=== PATIENT | female | born 1940 | race Caucasian/White ===

== ENCOUNTER 2016-07-25 13:09 | Emergency (ER) | payer BC ==
[~2016-07-25] VITALS: Ht 147.3 cm; Wt 75.0 kg
[2016-07-25 13:14] VITALS: TEMP 36.5; Ht 147.3 cm; Wt 75.0 kg
[2016-07-25] MEDS ORDERED: ACETAMINOPHEN 325 MG TAB PO STA (13:37)
--- NOTE | 2016-07-25 14:25 | DIAGNOSTIC IMAGING REPORT ---
HEAD CT NONCONTRAST CT DOSE: 601.98 mGy.cm HISTORY: Trauma fall; R frontal contusion TECHNIQUE: Multiaxial CT images of the head were performed without the use of intravenous contrast. Comparison: None. Findings: The paranasal sinuses and mastoid air cells are clear. The curvilinear 1.5 x 1.0 cm density transaxial image 10 left occipital lobe. Diagnostic considerations include a serpiginous area transverse sinus versus faintly seen meningioma. MRI of the brain is suggested. Remainder of the study shows unremarkable density characteristics throughout. Ventricular system is midline. Impression: 1.5 x 1.0 cm curvilinear density adjacent to the left transverse sinus and/or left tentorium 2. MRI of the brain with contrast enhancement is suggested as follow-up. 3. Remainder the study is negative. Electronically signed by: Saad Fernando M.D. 07/25/2016 2:24 PM Dictated Date/Time: 07/25/2016 2:18 PM
[2016-07-25] MEDS ORDERED: METF-384 PO (14:37)
[2016-07-25] MEDS ORDERED: LEVO25TA PO (14:37)
[2016-07-25] MEDS ORDERED: GLIM2TAB PO (14:37)
[2016-07-25] MEDS ORDERED: PRLSR20 PO (14:37)
[2016-07-25] MEDS ORDERED: ASPI81TA28 PO (14:37)
[2016-07-25] MEDS ORDERED: IRBE-37 PO (14:37)
[2016-07-25] MEDS ORDERED: PRAV20TA PO (14:37)
[2016-07-25] MEDS ORDERED: METO25TA3 PO (14:37)
--- NOTE | 2016-07-25 15:06 | DIAGNOSTIC IMAGING REPORT ---
RIGHT HUMERUS MIN 2 VIEWS ROUTINE CLINICAL HISTORY: Right humeral pain status post trauma. COMPARISON: None. DISCUSSION: There is a humeral neck fracture. No additional fractures are visualized. IMPRESSION: Proximal humeral neck fracture. Electronically signed by: Eddie Melo M.D. 07/25/2016 3:05 PM Dictated Date/Time: 07/25/2016 3:05 PM
--- NOTE | 2016-07-25 15:06 | DIAGNOSTIC IMAGING REPORT ---
RIGHT SHOULDER MIN 2 VIEWS ROUTINE CLINICAL HISTORY: Right shoulder pain status post trauma COMPARISON: None. DISCUSSION: There is an acute humeral neck fracture. There is no dislocation. IMPRESSION: Essentially nondisplaced humeral neck fracture. Electronically signed by: Eddie Melo M.D. 07/25/2016 3:04 PM Dictated Date/Time: 07/25/2016 3:04 PM
--- NOTE | 2016-07-25 15:06 | DIAGNOSTIC IMAGING REPORT ---
LEFT KNEE 3 VIEWS CLINICAL HISTORY: fall; L knee pain COMPARISON: None. DISCUSSION: The bones and joint spaces appear intact. There is no evidence of fracture, dislocation or bony disease. There is no evidence for soft tissue swelling. IMPRESSION: Negative study. Electronically signed by: Saad Fernando M.D. 07/25/2016 3:05 PM Dictated Date/Time: 07/25/2016 3:05 PM
--- NOTE | 2016-07-25 15:42 | EMERGENCY ROOM VISIT NOTE ---
ED Visit Note First contact with patient: 13:23 I did evaluate and examine this patient myself. I did guide management for the patient. I agree with the PA's assessment as discussed. Please see the PAs dictation for further details. I did independently review the x-rays and CT scans. She does have a humeral fracture. She was informed of her test results and will follow up with neurology regarding her CT head findings and with orthopedics for her humeral fracture. She was placed in a coaptation splint.
[2016-07-25] MEDS ORDERED: HYDR-5688 PO (15:44)
[2016-07-25 16:44] VITALS: BP 127/57; PULSE 74; O2SAT 96
--- NOTE | 2016-07-26 20:54 | EMERGENCY ROOM VISIT NOTE ---
ED Visit Note First contact with patient: 13:23 Chief Complaint: Fall. History of Present Illness: Ms. Plata is a 75-year-old white female who ambulates into the ED accompanied by her complaining of right shoulder pain after a fall. Patient reports she was playing sport call pickelball. 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 She reports before the injury there was no lightheadedness or dizziness. The time of the injury she did not lose consciousness but does remember striking her head. Since the injury she has noted severe right shoulder and upper arm pain, mild left knee pain and the development of a contusion in the right frontal area. Currently she describes her shoulder pain as a sharp sensation. She rates her discomfort 10/10. The pain is nonradiating. The pain is noted. Over the superior aspect of the shoulder and the mid anterior aspect of the humerus. Her pain worsens with palpation in these areas as well as any movements of the shoulder. She has not identified any alleviating factors related to the pain. She has not taken medication for pain prior to arrival at the hospital. She denies any associated arm weakness/numbness/tingling. Additionally she denies any previous significant injuries or surgeries. Additionally I did noticed contusion over the right frontal area. She reports there is no pain associated with this and she denies all signs of head injury. Lastly she reports she noted some posterior right knee pain while walking out of the gym to come to the hospital. He has noted mild and since arriving at the hospital has no longer been present. Additionally she denies dizziness, lightheadedness, abnormal neurological symptoms, neck pain, back pain, chest pain, shortness of breath, abdominal pain , nausea, vomiting, extremity weakness/numbness/tingling. Review of Symptoms: As noted above in history of present illness. All body systems were reviewed and found to be negative as noted above. Past Medical History: Diabetes, hypertension, hypothyroidism. Current Medications: Medications Dose Route/Sig Max Daily Dose Days Date Category Dose Instructions Glucophage (Metformin Hcl) 1,000 Mg Tab 1,000 Mg PO BID 07/25/16 Reported Synthroid (Levothyroxine Sodium) 25 Mcg Tab 25 Mcg PO QPM 07/25/16 Reported Avapro (Irbesartan) 150 Mg Tab 150 Mg PO 0900 07/25/16 Reported Amaryl (Glimepiride) 2 Mg Tab 2 Mg PO BID 07/25/16 Reported Aspirin Ec (Aspirin) 81 Mg Tab 81 Mg PO DAILY 07/25/16 Reported Prilosec (Omeprazole) 20 Mg Capcr 20 Mg PO DAILY 07/25/16 Reported Pravachol (Pravastatin Sodium) 20 Mg Tab 40 Mg PO HS 07/25/16 Reported Toprol-Xl (Metoprolol Succinate) 25 Mg Tabcr 25 Mg PO 2000 07/25/16 Reported Allergies to Medications: Erythromycin and penicillin. Social History: Patient is currently retired; she feels safe in her home environment; she denies tobacco use. Physical Examination: Vital Signs: Date Time Temp Pulse Resp B/P Pulse Ox O2 Delivery O2 Flow Rate FiO2 07/25/16 16:44 74 18 127/57 96 07/25/16 15:00 76 18 135/50 95 Room Air 07/25/16 13:14 36.5 67 20 134/67 97 Room Air GENERAL: 75-year-old female in moderate distress due to pain, nontoxic-appearing , afebrile and hemodynamically stable. NEUROLOGICAL: Awake, alert and oriented to person, place and time. Answering questions appropriately and following commands. Normal gait. Good hand eye coordination. No focal motor sensory deficits. Cranial nerves II through XII grossly intact. Good short-term and long-term recall. SKIN: Warm, dry and pink. No soft tissue contusion noted over the right frontal area. HEENT: Atraumatic and normocephalic. Skull: No bony deformity, depressions or tenderness. No raccoon's eyes or hyde signs. No drainage from the ears or the nostril; no hemotympanum. Face: Mild tenderness over the contusion in the right frontal area without bony deformity or crepitus. PERRLA. EOMI without nystagmus. Sclera white and conjunctiva pink. No malocclusion. No intraoral trauma. Airway patent. Speech normal. No lymphadenopathy. Trachea midline. No jugular venous distention. BACK: No tenderness over the bony cervical and thoracic spine. Full range of motion of the cervical spine. THORAX: Lungs sounds are clear to auscultation and equal bilaterally with symmetrical chest wall. ABDOMEN: Flat, soft and nontender. Positive bowel sounds in all quadrants. No guarding, rigidity or organomegaly. RIGHT UPPER EXTREMITY: No gross bony deformity. Moderate tenderness over the humeral head and the proximal to mid humeral shaft without bony deformity, bony crepitus, swelling or ecchymosis. No tenderness over the distal humerus elbow, forearm or wrist. With the elbow stabilize she has full range of motion in pronation and supination of forearm, flexion, extension and radial and ulnar deviation of the wrist and flexion and extension of all fingers. Throughout the hand the skin was warm and pink and capillary refill is brisk. She is able to distinguish light sensations through all dermatomes. LEFT LOWER EXTREMITY: No gross bony deformity. No shortening or malrotation. No tenderness over the hip, femur, knee, lower leg or ankle. Full range of motion in flexion and extension of the knee, plantar flexion and dorsiflexion of the ankle and flexion and extension of all the toes. Throughout the foot the skin was warm and pink and capillary refill is brisk. She was able to distinguish light sensations through all dermatomes. ED Course: Patient is assessed as noted above. Right Shoulder X-Ray: Was read by myself and shows an acute humeral head fracture without dislocation. Right Humerus X-Ray: Was read by myself and the radiologist showing a proximal humeral neck fracture. Left Knee X-Rays: Was read by myself and the radiologist showing no acute fractures or dislocations. No evidence of soft tissue swelling. Head CT: Was reviewed by myself and read by the radiologist showing a 1.5 x 1.0 cm curviliiner density adjacent to the left transverse sinus and/or left tentorium consistent with a possibleserpiginous area transverse sinus versus meningioma. No intracranial bleed or skull fracture. Patient was given 650 mg of acetaminophen by mouth for pain; she refused narcotics. Additionally patient was given ice for pain and comfort. Patient's right upper extremity was immobilized with a sugar tong shoulder splint and sling. Patient's case was reviewed with Dr. Bojorquez; he independently assessed the patient we agreed on diagnostic approach, treatment, disposition and plan. Patient and were educated about leticia's findings and instructed on his treatment plan; they verbalizes understanding and agreement with this plan. Clinical Impression: Right humeral neck fracture. Right frontal contusion. Left knee pain. Disposition: Patient discharged home in stable condition; prior to departure she was reassessed and subjectively reported she was feeling much better and rated her discomfort 3/10. Plan: Comfort measures were discussed with the patient and her including the use of ice, splint and sling use and a sliding pain medication scale of ibuprofen, acetaminophen and [place]; patient was given narcotic precautions. Patient was encouraged to follow-up with Dr. Lebron, clinical applications specialist, for definitive care and treatment of her humerus fracture. Patient was encouraged to follow-up with Dr. Daniel, neurologist, for her new found hemangioma. Patient was encouraged return the ED for worsening/uncontrolled pain, arm weakness/numbness/tingling or any new/concerning symptoms.
== END 2016-07-25 16:39 | disposition home or self-care (01) ==
LOC: EDBD 13:09 → C.EDA 13:11
DX: S72.001A Fracture of unspecified part of neck of right femur, initial encounter for closed fracture (principal); S00.93XA Contusion of unspecified part of head, initial encounter; M25.562 Pain in left knee; W19.XXXA Unspecified fall, initial encounter; E11.9 Type 2 diabetes mellitus without complications; I10 Essential (primary) hypertension; E03.9 Hypothyroidism, unspecified; Z79.82 Long term (current) use of aspirin

== ENCOUNTER → 2016-08-07 | Outpatient (CLI) | payer BC ==
[~2016-08-07] MED LIST: ASPI81TA28 PO; GLIM2TAB PO; HYDR-5688 PO; IRBE-37 PO; LEVO25TA PO; METF-384 PO; METO25TA3 PO; PRAV20TA PO; PRLSR20 PO
--- NOTE | 2016-08-07 16:58 | DIAGNOSTIC IMAGING REPORT ---
LEFT LOWER EXTREMITY VENOUS DOPPLER CLINICAL HISTORY: Left leg pain and swelling. COMPARISON STUDY: No previous studies for comparison. TECHNIQUE: Sonography of the deep venous system of the left lower extremity was performed. Compression and augmentation were evaluated. FINDINGS: The left common femoral, superficial femoral and popliteal veins were compressible. Augmentation was normal. Flow was shown within the deep calf vessels. IMPRESSION: No evidence of deep venous thrombus within the left lower extremity. Electronically signed by: Tarik Chacon M.D. 08/07/2016 4:57 PM Dictated Date/Time: 08/07/2016 4:56 PM
== END | disposition home or self-care (01) ==
LOC: C.ULTR 15:57
PROVIDERS: ATTEND Nurse Practitioner
DX: M79.662 Pain in left lower leg (principal); M79.89 Other specified soft tissue disorders

== ENCOUNTER 2022-07-28 15:04 | Inpatient (IN) ==
[2022-07-28] MEDS ORDERED: SODIUM CHLORIDE 0.9% 500 ML IV STA (15:06)
--- NOTE | 2022-07-28 15:22 | Emergency Department Note ---
Impression & Plan AV heart block, Hypomagnesemia ED Provider Note NAME: RHETT MARSH AGE: 81 SEX: F : 1940 ARRIVES VIA: Ambulance INFORMANT: Patient, EMS ED PROVIDER(S): Elijah Keita DO CHIEF COMPLAINT: Dysrhythmia HPI: The patient is an 81-year-old female who presented to the emergency department via ambulance for an evaluation of dysrhythmia. The patient was seen at the [facility] for scheduled breast procedure. She was evaluated by anesthesia. The patient was found to have dysrhythmia on her EKG. This was new compared to a previous EKG. They were able to do the procedure but the patient was sent to the emergency department because of dysrhythmia. The patient herself denies having any chest pain. She denies having any shortness of breath. She denies having any lower extremity swelling. She states that she took all of her medications today except her metformin. She does take a calcium channel marito as well as a beta-marito. ROS: See above HPI for pertinent positives & negatives. A total of 10 systems reviewed and were otherwise negative. PAST MEDICAL HISTORY: See Below PAST SURGICAL HISTORY: See Below FAMILY HISTORY: See Below SOCIAL HISTORY: See Below HOME MEDICATIONS: See Below ALLERGIES: See Below VITALS: See Below PHYSICAL EXAMINATION: GENERAL: Patient is awake alert in no acute distress patient is resting comfortably and showing no signs of anxiety EYES: The conjunctivae are clear. The pupils are round and reactive. EARS, NOSE, MOUTH AND THROAT: The nose is without any evidence of any deformity. NECK: The neck is nontender and supple. RESPIRATORY: Normal respiratory effort is noted there is no evidence of wheezing rhonchi or rales CARDIOVASCULAR: Bradycardic but regular heart sounds were noted to auscultation. There is no definite murmur GASTROINTESTINAL: The abdomen is soft. Abdomen is nontender. MUSCULOSKELETAL/EXTREMITIES: There is no evidence of gross deformity full range of motion is noted in the hips and shoulders. SKIN: The skin was warm and dry. Trace pedal edema was noted bilaterally. NEUROLOGIC: Patient is awake alert and oriented x3 MEDICAL DECISION MAKING: The patient is an 81-year-old female who has a history of breast cancer who had a recent biopsy and a short procedure unit. The patient was seen at the surgery center at [facility]. She had the procedure done but she was also noted to have an abnormal heart rhythm which appeared to be a heart block. The patient was sent to the emergency department by anesthesia. I did receive a phone call about the patient from anesthesia. I discussed the patient's laboratory and radiographic studies with her. I discussed her condition with the [facility] bag sorter as well as the on-call [facility] hospitalist. They have agreed to evaluate the patient in the emergency department for further management and disposition. The patient was placed on the campus monitor. She was also ordered to have the transcutaneous pacer placed. Triage Nursing notes reviewed. Prior medical records reviewed Vital Signs: reviewed and remarkable for bradycardia. Differential diagnosis: Premature contractions, electrolyte abnormality, cardiac dysrhythmia, thyroid dysfunction, pulmonary embolism, infection, gastrointestinal, as well as other pathologies. ER treatment provided: See below Diagnostics interpreted by me: ECG: EKG was obtained in the emergency department. My interpretation is second- degree AV block. Poor R wave progression was noted with diffuse ST segment abnormalities. There was also an area that appears to be consistent with third- degree block. No previous tracing was available. Prehospital EKG was evaluated. My interpretation is second-degree heart block at 47 bpm. Cardiac Monitoring: An order was placed for continuous cardiac monitoring. The monitor shows a rate of 49 bpm with second-degree heart block. Laboratory studies: As stated above and show below. Imaging studies: See below. Radiographic imaging was reviewed by myself Consultation(s): I discussed this case with Dr. Jerry who is on-call for the [facility] cardiology group. I discussed this case with Nupur who is on for the [facility] hospitalist group. ED COURSE: Procedures: none Critical Care: I have personally spent greater than 45 minutes of critical care time in the direct management of this patient. This includes bedside care, interpretation of diagnostic studies, and testing, discussion with consultants, patient, and family members, and other required patient management activities. This 45 minutes is in excess of all separately billable procedures. Past Med/Surg History Medical History CLL (chronic lymphocytic leukemia) Diabetes mellitus type 2 in nonobese High cholesterol History of chicken pox Hypothyroidism Neuropathy Surgical History (Updated 07/28/22 @ 18:40 by CASEY Brewster) History of cryosurgery to cervix d/t cervical erosion S/P cholecystectomy S/P left mastectomy S/P lumpectomy, left breast S/P oophorectomy right S/P tonsillectomy S/P tubal ligation S/P wisdom tooth extraction Family History Grandmother (Paternal) Breast cancer Denies family history of Ovarian cancer Prostate cancer Colorectal cancer Social History Smoking Status: Never smoker Hx Alcohol Use: No Hx Substance Use: No Preferred Language: Cambodian Communication Ability: Effective Psychiatric Nursing Aide Required: No Beliefs That Will Affect Care: None Current Living Situation: Alone Feels Safe at Home: Yes Safety Concerns: Feels Safe At This Time Assistive Devices: None Allergies Allergies Allergy/AdvReac Type Severity Reaction Status Date / Time erythromycin base Allergy Unknown gi upset Verified 07/28/22 16:25 Penicillins Allergy Unknown hives, rash Verified 07/28/22 16:25 Sulfa (Sulfonamide AdvReac upset Verified 07/28/22 16:25 Antibiotics) stomach Home Meds Home Medications Medication Instructions Recorded Confirmed aspirin 81 mg chewable tablet 81 mg PO DAILY 12/30/18 07/28/22 atenolol 50 mg tablet 50 mg PO DAILY 12/30/18 07/28/22 glimepiride 2 mg tablet 2 mg PO BID 12/30/18 07/28/22 levothyroxine 50 mcg tablet 50 mcg PO DAILY 12/30/18 07/28/22 loratadine 10 mg tablet (Allergy 10 mg PO DAILY 12/30/18 07/28/22 Relief (loratadine)) losartan 100 mg tablet 100 mg PO DAILY 12/30/18 07/28/22 metformin 500 mg tablet,extended 1,000 mg PO BID 12/30/18 07/28/22 release 24 hr omeprazole 20 mg tablet,delayed 20 mg PO DAILY 12/30/18 07/28/22 release pravastatin 40 mg tablet 40 mg PO DAILY 12/30/18 07/28/22 sitagliptin phosphate 100 mg tablet 100 mg PO DAILY 12/30/18 07/28/22 canagliflozin 100 mg tablet 100 mg PO DAILY 07/03/19 07/28/22 metoprolol succinate 25 mg 25 mg PO DAILY 07/03/19 07/28/22 tablet,extended release 24 hr (Toprol XL) Previous Rx's Medication Instructions Recorded fluconazole 150 mg tablet 150 mg PO Q3D 2 doses #2 tabs 07/03/19 (Diflucan) nystatin-triamcinolone 100,000 1 appln topical BID #30 grams 07/03/19 unit/g-0.1 % topical cream Results & Data (ED) Vital Signs Vital Signs - 24 hr 07/28/22 15:05 07/28/22 15:06 07/28/22 16:26 Pulse Rate 50 L 97 H Pulse Rate from SpO2 Sensor Respiratory Rate 17 Respiratory Effort / Characteristics Non-Labored Spontaneous Respiratory Depth Normal Blood Pressure 130/40 L Blood Pressure Mean 70 Pulse Oximetry 88 L 96 Oxygen Delivery Method Room Air Nasal Cannula Oxygen Flow Rate 4 Sepsis Recent Fever Within 48 Hours No Sepsis New/Unexplained Change in Mental Status No Sepsis Action Taken by Nursing No Action Required 07/28/22 15:24 07/28/22 15:26 07/28/22 15:26 Pulse Rate 60 49 L Pulse Rate from SpO2 Sensor 49 L Respiratory Rate 19 19 Respiratory Effort / Characteristics Respiratory Depth Blood Pressure 151/43 H Blood Pressure Mean 79 Pulse Oximetry 88 L Oxygen Delivery Method Oxygen Flow Rate Sepsis Recent Fever Within 48 Hours Sepsis New/Unexplained Change in Mental Status Sepsis Action Taken by Nursing 07/28/22 15:30 07/28/22 16:00 07/28/22 16:30 Pulse Rate 49 L 70 50 L Pulse Rate from SpO2 Sensor 47 L Respiratory Rate 20 22 19 Respiratory Effort / Characteristics Respiratory Depth Blood Pressure Blood Pressure Mean Pulse Oximetry 87 L Oxygen Delivery Method Oxygen Flow Rate Sepsis Recent Fever Within 48 Hours Sepsis New/Unexplained Change in Mental Status Sepsis Action Taken by [facility] Medications Current Medication List: was personally reviewed by me Laboratory Data Attestation: I reviewed the patient's lab results. 07/28/22 15:29 07/28/22 15:29 Lab Results 07/28/22 07/28/22 07/28/22 Range/Units 15:25 15:29 15:29 WBC 13.16 H (4.8-10.8) K/ul RBC 4.65 (4.20-5.40) M/uL Hgb 13.5 (12.0-16.0) g/dl Hct 39.7 (37.0-47.0) % MCV 85.4 (80.0-100.0) fL MCH 29.0 (25.0-34.0) pg MCHC 34.0 (32.0-36.0) g/dL RDW Std Deviation 42.2 (36.4-46.3) fL RDW Coeff of Karrie 13.6 (11.5-14.5) % Plt Count 204 (130-400) K/uL MPV 11.0 (9.4-12.4) fL Immature Gran % (Auto) 0.4 % Neut % (Auto) 63.1 % Lymph % (Auto) 33.4 % Hamblen % (Auto) 2.2 % Eos % (Auto) 0.7 % Baso % (Auto) 0.2 % Neut # (Auto) 8.30 H (1.40-6.50) K/uL Lymph # (Auto) 4.40 H (1.2-3.4) K/uL Hamblen # (Auto) 0.29 (0.11-0.59) K/uL Eos # (Auto) 0.09 (0-0.50) K/uL Baso # (Auto) 0.03 (0-0.2) K/uL Immature Gran # (Auto) 0.05 (0.01-0.20) K/uL PT 10.9 (9.0-12.0) Seconds INR 1.0 (0.9-1.1) APTT 21.6 (21.0-31.0) Seconds PTT Ratio 0.8 Sodium (136-145) mmol/L Potassium (3.5-5.1) mmol/L Chloride (98-107) mmol/L Carbon Dioxide (21-32) mmol/L Anion Gap (3-11) BUN (6-23) mg/dl Creatinine (0.6-1.2) mg/dl Est Cr Clr Drug Dosing ml/min Est GFR ( Amer) ml/min Est GFR (Non-Af Amer) ml/min BUN/Creatinine Ratio (10-20) Glucose (70-99(Fasting)) mg/dl Estimat Average Glucose 197 mg/dl Hemoglobin A1c 8.5 H (4.5-5.6) % Calcium (8.6-10.3) mg/dl Magnesium (1.7-2.4) mg/dl Total Bilirubin (0.2-1.0) mg/dl AST (13-39) U/L ALT (7-52) U/L Alkaline Phosphatase (34-104) U/L Troponin I High Sens (0-14) pg/ml Total Protein (6.0-8.3) gm/dl Albumin (3.4-5.0) gm/dl Globulin (2.5-4.0) gm/dl Albumin/Globulin Ratio (0.9-2) TSH (0.300-4.500) uIu/ml SARS-CoV-2, RNA, NAAT (NEGATIVE) 07/28/22 07/28/22 07/28/22 Range/Units 15:29 15:29 15:47 WBC (4.8-10.8) K/ul RBC (4.20-5.40) M/uL Hgb (12.0-16.0) g/dl Hct (37.0-47.0) % MCV (80.0-100.0) fL MCH (25.0-34.0) pg MCHC (32.0-36.0) g/dL RDW Std Deviation (36.4-46.3) fL RDW Coeff of Karrie (11.5-14.5) % Plt Count (130-400) K/uL MPV (9.4-12.4) fL Immature Gran % (Auto) % Neut % (Auto) % Lymph % (Auto) % Hamblen % (Auto) % Eos % (Auto) % Baso % (Auto) % Neut # (Auto) (1.40-6.50) K/uL Lymph # (Auto) (1.2-3.4) K/uL Hamblen # (Auto) (0.11-0.59) K/uL Eos # (Auto) (0-0.50) K/uL Baso # (Auto) (0-0.2) K/uL Immature Gran # (Auto) (0.01-0.20) K/uL PT (9.0-12.0) Seconds INR (0.9-1.1) APTT (21.0-31.0) Seconds PTT Ratio Sodium 138 (136-145) mmol/L Potassium 4.5 (3.5-5.1) mmol/L Chloride 102 (98-107) mmol/L Carbon Dioxide 27 (21-32) mmol/L Anion Gap 9 (3-11) BUN 12 (6-23) mg/dl Creatinine 0.82 (0.6-1.2) mg/dl Est Cr Clr Drug Dosing 48.3 ml/min Est GFR ( Amer) 78.3 ml/min Est GFR (Non-Af Amer) 67.6 ml/min BUN/Creatinine Ratio 14.6 (10-20) Glucose 188 H (70-99(Fasting)) mg/dl Estimat Average Glucose mg/dl Hemoglobin A1c (4.5-5.6) % Calcium 9.4 (8.6-10.3) mg/dl Magnesium 1.3 L (1.7-2.4) mg/dl Total Bilirubin 0.4 (0.2-1.0) mg/dl AST 33 (13-39) U/L ALT 23 (7-52) U/L Alkaline Phosphatase 64 (34-104) U/L Troponin I High Sens 5.5 (0-14) pg/ml Total Protein 6.6 (6.0-8.3) gm/dl Albumin 3.6 (3.4-5.0) gm/dl Globulin 3.0 (2.5-4.0) gm/dl Albumin/Globulin Ratio 1.2 (0.9-2) TSH 1.467 (0.300-4.500) uIu/ml SARS-CoV-2, RNA, NAAT NEGATIVE (NEGATIVE) Administered Medications Acetaminophen (Acetaminophen 325 Mg Tab) 650 mg PO Q8H MICHELA Stop: 08/27/22 18:44 Last Admin: 07/28/22 19:21 Dose: 650 mg Documented By: JUANCARLOS Discontinued Medications Sodium Chloride (Nss) 500 mls @ 999 mls/hr IV .Q31M STA Stop: 07/28/22 15:36 Last Infusion: 07/28/22 18:12 Dose: 0 mls/hr Documented By: Admin: 07/28/22 15:39 Dose: 999 mls/hr Documented By: NH Magnesium Sulfate/Dextrose (Magnesium Sulfate / D5w) 1 gm in 100 mls @ 100 mls/hr IV Q1H MICHELA Stop: 07/28/22 18:12 Last Admin: 03/24/23 19:20 Dose: 100 mls/hr Documented By: Infusion: 07/28/22 18:12 Dose: 100 mls/hr Documented By: Admin: 07/28/22 17:12 Dose: 100 mls/hr Documented By: SHAHAB Imaging Data Attestation: I personally reviewed and interpreted this imaging study as follows: My Impression: 1 view chest x-ray was obtained in the emergency department. My interpretation is no definite filtrate, no free air, final report below. Radiologist's Impression: Chest X-Ray 07/28/22 15:06 XR chest 1V portable CLINICAL HISTORY: Dysrhythmia COMPARISON STUDY: No previous studies for comparison. FINDINGS: Old deformity of the proximal right humerus is incidentally noted. T here is mild cardiomegaly without evidence for pulmonary edema. No pneumothorax or pleural effusion is present. Linear density along the left heart border favors atelectasis. There is no consolidation to suggest pneumonia. There is possible soft tissue gas within the left chest wall. IMPRESSION: 1. No acute cardiopulmonary findings. Mild cardiomegaly. 2. Possible soft tissue gas within the left chest wall. ACT 112: Negative or not required by law. Electronically signed by: Tarik Chacon M.D. 07/28/2022 3:28 PM Discharge Plan Visit Data Chief Complaint: Cardiac Assessment Stated Complaint: CARDIAC ASSESSMENT ED Provider: Elijah Keita Discharge Problem: AV heart block, Hypomagnesemia Patient Disposition: Admitted As Inpatient Discharge Instructions Interventions: ED Discharge Assessment Last Done: 07/28/22 17:36
--- NOTE | 2022-07-28 15:25 | Cardiology Consultation ---
Date of Consultation July 28, 2022 Assessment & Plan (1) AV heart block: (2) HTN (hypertension): Plan 81-year-old female without underlying cardiac disease but history of hypertension on beta-marito therapy who underwent routine surgery with left mastectomy and sentinel node biopsy today. Intraoperatively noted with heart rate of 50 2-1 AV block. Patient hemodynamically stable with no disruption in procedure. Due to persistent rhythm changes however patient was referred for inpatient telemetry and monitoring. EKG and telemetry strips reviewed. 2-1 AV block present high-grade AV block may be present on 1 strip Plan: Admit to telemetry. Hold metoprolol succinate. Complete cardiac evaluation with echocardiogram If AV block remains persistent or progresses may warrant pacemaker insertion discussed with patient and family. Currently no acute hemodynamic compromise or suggestion of myocardial injury or ischemia since dictation patient Sera or History of Present Illness Reason for Consultation: 2-1 AV block Requesting Physician: Dr. Annabella Victoria History of Present Illness Patient is a an 81-year-old female without prior history of cardiac disease who was referred and underwent left partial mastectomy and axillary sentinel lymph node biopsy on 07/28/2022 (earlier today). Intraoperatively noted to have 2-1 AV block by EKG and telemetry. No ST segment abnormalities. No hemodynamic instability. Procedure was able to be completed and patient asymptomatic postoperatively Patient referred for inpatient telemetry, hospitalization Preoperative EKG normal sinus rhythm with normal tracing at 70 bpm Underlying medical issues include 1. Hypothyroidism on replacement 2. Type 2 diabetes mellitus 3. Chronic lymphocytic leukemia 4. Hypertension on beta-marito therapy Patient denies prior history of myocardial infarction, angina, congestive heart failure. Does carry history of hypertension and did take a.m. medications including metoprolol succinate 50 mg p.o. She is sedentary about her home but denies any exertional dyspnea chest pains, tachypalpitations syncope or near syncope Appetite is fair No distinct sleep disruption No unexplained fevers chills or infections. No bleeding difficulties Surgery other than rhythm issues uneventful per patient she did receive IV blue dye for sentinel node biopsy Allergies Allergy/AdvReac Type Severity Reaction Status Date / Time erythromycin base Allergy Unknown gi upset Verified 07/03/19 11:04 Penicillins Allergy Unknown hives, rash Verified 07/03/19 11:04 Sulfa (Sulfonamide AdvReac upset Verified 07/03/19 11:04 Antibiotics) stomach Home Medications Medication Instructions Recorded Confirmed Type aspirin 81 mg chewable tablet 81 mg PO DAILY 12/30/18 07/03/19 History atenolol 50 mg tablet 50 mg PO DAILY 12/30/18 07/03/19 History glimepiride 2 mg tablet 2 mg PO BID 12/30/18 07/03/19 History levothyroxine 50 mcg tablet 50 mcg PO DAILY 12/30/18 07/03/19 History loratadine 10 mg tablet (Allergy 10 mg PO DAILY 12/30/18 07/03/19 History Relief (loratadine)) losartan 100 mg tablet 100 mg PO DAILY 12/30/18 07/03/19 History metformin 500 mg tablet,extended 1,000 mg PO BID 12/30/18 07/03/19 History release 24 hr omeprazole 20 mg tablet,delayed 20 mg PO DAILY 12/30/18 07/03/19 History release pravastatin 40 mg tablet 40 mg PO DAILY 12/30/18 07/03/19 History sitagliptin phosphate 100 mg tablet 100 mg PO DAILY 12/30/18 07/03/19 History canagliflozin 100 mg tablet 100 mg PO DAILY 07/03/19 07/03/19 History fluconazole 150 mg tablet 150 mg PO Q3D 2 doses #2 tabs 07/03/19 07/03/19 Rx (Diflucan) metoprolol succinate 25 mg 25 mg PO DAILY 07/03/19 07/03/19 History tablet,extended release 24 hr (Toprol XL) nystatin-triamcinolone 100,000 1 appln topical BID #30 grams 07/03/19 07/03/19 Rx unit/g-0.1 % topical cream varicella-zoster gE vac,2 of 2 50 mcg IM 07/03/19 07/03/19 History mcg IM suspension Patient History Medical History High cholesterol History of chicken pox Neuropathy Surgical History History of cryosurgery to cervix d/t cervical erosion S/P cholecystectomy S/P oophorectomy right S/P tonsillectomy S/P tubal ligation S/P wisdom tooth extraction Family History Grandmother (Paternal) Breast cancer Denies family history of Ovarian cancer Prostate cancer Colorectal cancer Social History Smoking Status: Never smoker Hx Alcohol Use: Yes Alcohol Intake Frequency Comment: 1 glass Hx Substance Use: No Feels Safe at Home: Yes Review of Systems Review of Systems: All systems reviewed & are unremarkable except as noted in HPI & below Physical Exam Constitutional: no acute distress Eyes: PERRL, conjunctivae normal, anicteric sclerae ENMT: external ear and nose normal, oropharynx normal Neck: trachea midline, no thyromegaly Respiratory: normal respiratory effort, lungs clear to auscultation Cardiovascular: Rate/Rhythm: regular rate and regular rhythm Heart Sounds: normal S1 and normal S2 Vessels: no JVD Extremities: no edema Chest (Breasts): Additional Comments: Surgical incision left chest and breast bandaged without drainage Gastrointestinal (Abdomen): normal bowel sounds, soft, nontender, no hepatosplenomegaly Musculoskeletal: no cyanosis or clubbing, extremities motor strength 5/5 Results & Data Vital Signs (Past 12 Hours) Vital Signs Pulse Resp BP Pulse Ox O2 Del Method O2 Flow Rate 07/28/22 15:06 96 Nasal Cannula 4 07/28/22 15:05 50 L 17 130/40 L 88 L Room Air Laboratory Results Laboratory Results - last 24 hr 07/28/22 07/28/22 07/28/22 15:29 15:29 15:29 WBC 13.16 H RBC 4.65 Hgb 13.5 Hct 39.7 MCV 85.4 MCH 29.0 MCHC 34.0 RDW Std Deviation 42.2 RDW Coeff of Karrie 13.6 Plt Count 204 MPV 11.0 Immature Gran % (Auto) 0.4 Neut % (Auto) 63.1 Lymph % (Auto) 33.4 Will % (Auto) 2.2 Eos % (Auto) 0.7 Baso % (Auto) 0.2 Neut # (Auto) 8.30 H Lymph # (Auto) 4.40 H Will # (Auto) 0.29 Eos # (Auto) 0.09 Baso # (Auto) 0.03 Immature Gran # (Auto) 0.05 PT Pending INR Pending APTT Pending PTT Ratio Pending Sodium 138 Potassium 4.5 Chloride 102 Carbon Dioxide 27 Anion Gap 9 BUN 12 Creatinine 0.82 Est Cr Clr Drug Dosing 48.3 Est GFR ( Amer) 78.3 Est GFR (Non-Af Amer) 67.6 BUN/Creatinine Ratio 14.6 Glucose 188 H Calcium 9.4 Magnesium 1.3 L Total Bilirubin 0.4 AST 33 ALT 23 Alkaline Phosphatase 64 Troponin I High Sens 5.5 Total Protein 6.6 Albumin 3.6 Globulin 3.0 Albumin/Globulin Ratio 1.2 TSH SARS-CoV-2, RNA, NAAT 07/28/22 07/28/22 15:29 15:47 WBC RBC Hgb Hct MCV MCH MCHC RDW Std Deviation RDW Coeff of Karrie Plt Count MPV Immature Gran % (Auto) Neut % (Auto) Lymph % (Auto) Will % (Auto) Eos % (Auto) Baso % (Auto) Neut # (Auto) Lymph # (Auto) Will # (Auto) Eos # (Auto) Baso # (Auto) Immature Gran # (Auto) PT INR APTT PTT Ratio Sodium Potassium Chloride Carbon Dioxide Anion Gap BUN Creatinine Est Cr Clr Drug Dosing Est GFR ( Amer) Est GFR (Non-Af Amer) BUN/Creatinine Ratio Glucose Calcium Magnesium Total Bilirubin AST ALT Alkaline Phosphatase Troponin I High Sens Total Protein Albumin Globulin Albumin/Globulin Ratio TSH 1.467 SARS-CoV-2, RNA, NAAT Pending Diagnostic Findings Echocardiogram 07/19/2020 The LV wall thickness is normal. The left ventricular wall motion is normal. The qualitative LV ejection fraction is 55-59% (normal). The left ventricular diastolic function is mildly abnormal (grade I). The aortic valve has three leaflets. Moderate aortic valve sclerosis is present. Aortic stenosis is absent. Mild aortic valve regurgitation is present. Trace mitral regurgitation is present. There is no evidence of pulmonary hypertension. The proximal ascending thoracic aorta is mildly enlarged with diameter of 4.1 cm.
--- NOTE | 2022-07-28 15:29 | XRay Report ---
XR chest 1V portable CLINICAL HISTORY: Dysrhythmia COMPARISON STUDY: No previous studies for comparison. FINDINGS: Old deformity of the proximal right humerus is incidentally noted. There is mild cardiomega ly without evidence for pulmonary edema. No pneumothorax or pleural effusion is present. Linear densi ty along the left heart border favors atelectasis. There is no consolidation to suggest pneumonia. Th ere is possible soft tissue gas within the left chest wall. IMPRESSION: 1. No acute cardiopulmonary findings. Mild cardiomegaly. 2. Possible soft tissue gas within the left chest wall. ACT 112: Negative or not required by law. Electronically signed by: Tarik Chacon M.D. 07/28/2022 3:28 PM
[2022-07-28 15:45] LABS: Basophils # (auto) 0.03 K/uL (0-0.2); Basophils % (auto) 0.2 %; Eosinophils # (auto) 0.09 K/uL (0-0.50); Eosinophils % (auto) 0.7 %; Hematocrit (blood only) 39.7 % (37.0-47.0); Hemoglobin 13.5 g/dl (12.0-16.0); Immature Granulocytes # (auto) 0.05 K/uL (0.01-0.20); Immature Granulocytes % (auto) 0.4 %; Lymphocytes % (auto) 33.4 %; Mean Corpuscular Volume 85.4 fL (80.0-100.0); Monocytes # (auto) 0.29 K/uL (0.11-0.59); Monocytes % (auto) 2.2 %; Neutrophils % (auto) 63.1 %; Platelet Count 204 K/uL (130-400); RDW Coefficient of Variation 13.6 % (11.5-14.5); RDW Standard Deviation 42.2 fL (36.4-46.3); Red Blood Count 4.65 M/uL (4.20-5.40); White Blood Count 13.16 K/ul (4.8-10.8)
[2022-07-28 16:00] LABS: Albumin Globulin Ratio 1.2 (0.9-2); Albumin Level 3.6 gm/dl (3.4-5.0); BUN Creatinine Ratio 14.6 (10-20); Bilirubin,Total 0.4 mg/dl (0.2-1.0); Calcium 9.4 mg/dl (8.6-10.3); Creatinine Clr Calc Pharmacy 48.3 ml/min; Est GFR (African American) 78.3 ml/min; Est GFR (Non-African American) 67.6 ml/min; Magnesium 1.3 mg/dl (1.7-2.4); Potassium 4.5 mmol/L (3.5-5.1); Total Protein 6.6 gm/dl (6.0-8.3)
[2022-07-28 16:05] LABS: Troponin I High Sensitivity 5.5 pg/ml (0-14)
[2022-07-28 16:17] LABS: Partial Thromboplastin Ratio 0.8; Partial Thromboplastin Time 21.6 Seconds (21.0-31.0); Prothrombin Time 10.9 Seconds (9.0-12.0)
[2022-07-28] MEDS ORDERED: ACETAMINOPHEN 325 MG TAB PO PRN (16:32)
[2022-07-28] MEDS ORDERED: ALUMINUM/MAGNESIUM SUSP 30 ML UDC PO PRN (16:32)
[2022-07-28] MEDS ORDERED: MAGNESIUM HYDROXIDE SUSP 30 ML UDC PO PRN (16:32)
[2022-07-28] MEDS ORDERED: POLYETHYLENE (MIRALAX) 17 GM PACK PO PRN (16:32)
[2022-07-28] MEDS ORDERED: ONDANSETRON INJ 2 MG/ML 2 ML VIAL IV PRN (16:32)
--- NOTE | 2022-07-28 16:39 | History & Physical Report ---
Date of Service July 28, 2022 Assessment & Plan (1) AV heart block: (2) CLL (chronic lymphocytic leukemia): (3) HTN (hypertension): (4) S/P lumpectomy, left breast: (5) Hypomagnesemia: (6) Diabetes mellitus type 2 in nonobese: (7) Hypothyroidism: Plan 81-year-old presents from [facility] after being found to be in an abnormal heart rhythm in preop holding area just prior to partial lumpectomy with lymph node biopsy. Cardiology on board external pacer pads placed patient asymptomatic with no chest pain pending echo results and a.m. labs cardiology will discuss possible pacemaker placement. Additional PMH includes CLL, diabetes mellitus type 2, HTN and hypothyroidism AV heart block: Noted to be an abnormal heart rhythm in preop holding just prior to partial lumpectomy Patient takes metoprolol, amlodipine and losartan; hold metoprolol for now per cardiology Cardiology evaluated patient in ED; does not follow with outpatient cardiology Echo ordered and pending Cardiology will follow in a.m. and discuss possible pacemaker placement External pacer pads placed while on PCU Patient asymptomatic with no chest pain Hypomagnesemia: Mg+ 1.3; replace with 2G and recheck in AM CLL: Status post left lumpectomy Left axillary lymph node biopsy: Left partial mastectomy completed today at [facility] Follows with Dr. Cruz Pain control with Tylenol and Tramadol PRN ice rotating at site of lumpectomy Diabetes mellitus type 2: Takes Glipizide and Metformin; DC while inpt Takes Trulicity; last dose on Sunday; hold while inpt FSBS ACHS SSI while inpatient Check A1c in a.m. HTN: Patient takes metoprolol, amlodipine and losartan; hold metoprolol for now per cardiology Hypothyroidism: Takes levothyroxine; continue Disposition: PCP: Dr. Dahl CODE STATUS: Full code VTE prophylaxis: Teds and SCDs for now I spent a total of 87 minutes coordinating, documenting, and providing care for this patient excluding time spent in the performance of separately billed services. All of the aforementioned completed while collaborating with the assigned attending physician for a full treatment plan. Please see their addendum for further details. Admission and Anticipated Discharge Date Admission Date: I have seen and examined the patient and have discussed the case with the provider above. I agree with the assessment and plan as stated with the following exceptions. The patient is an 81-year-old female who came in for an evaluation of abnormal heart rhythm seen in preop holding just prior to a left breast localized partial lumpectomy and left axillary sentinel lymph node biopsy. She is a diabetic female with a history of CLL and infiltrating ductal carcinoma of the left breast. In the ER, she reports feeling asymptomatic. She was seen by cardiology who noted 2-1 AV block present with high degree AV block. Intraoperatively it was noted that her heart rate was 50 bpm with 2-1 AV block. She was hemodynamically stable with no disruption in her procedure but her rhythm change was persistent postoperatively. Metoprolol succinate 50 mg daily is being held. She is currently asymptomatic denying any chest pain, shortness of breath, lightheadedness or other issues. On physical exam she is in no acute distress and is well-nourished well- developed. She has a grayish coloration to her face and skin. She is mentating clearly and has no gross focal neuromuscular deficits. Cardiac exam reveals S1- S2 heard with no murmurs gallops or rubs and regular rate and rhythm. Lungs are clear to auscultation bilaterally. She has a small surgical bandage with gauze over the left breast. Surrounding area of skin appears normal. Work-up in the ER includes a CBC with white blood cell count of 13 K, otherwise normal. Normal coags, BMP unremarkable aside from a glucose of 188. Hemoglobin A1c is 8.5, magnesium is low at 1.3. There are no liver function abnormalities. A chest x-ray reveals possible soft tissue gas within the left chest wall postprocedure EKG reveals sinus bradycardia with a rate of 51bpm with 2:1 block. 1. AV heart block 2. Breast cancer s/p partial mastectomy on 07/28/22 3. DMII 4. CLL Agree with cardiology plans to admit and monitor patient off beta clocker therapy. Pacemaker placement may be warranted if heart block persists. Cont close monitoring of pain or development of other post operative symptoms and use of ice for pain/swelling in the first 24-48 hours. Insulin therapy while hospitalized for blood glucose management. CLL is stable and monitored by [facility] . DO Timbo History of Present Illness Chief Complaint: bradycardia Primary Care Provider: Annabella Victoria DO Sera Plata is an 81-year-old female that presented to the [facility] ED via EMS from [facility] outpatient surgery center where she underwent a left lumpectomy and lymph node biopsy today. On EKG at [facility] she was noted to be bradycardic with second-degree AVB and a heart rate 48. While at [facility], [place] anesthesia did reach out to Dr. Burnette with cardiology who reviewed her recent EKG that was performed at the beginning of July preoperatively which indicated normal sinus rhythm. During this encounter the patient did not exhibit any cardiac symptoms and was hemodynamically stable. Patient does not have a cardiac history. PMH includes CLL ()followed by Dr. Helms, 0.5 cm lump diagnosed by annual mammogram, type 2 diabetes mellitus, HTN, HLD, and hypothyroidism. At baseline patient does take metoprolol, losartan and amlodipine for HTN management. Patient denies any syncope type symptoms at home and reports taking her medications routinely and consistently. When I met with the patient her son and daughter were at the bedside. Patient was AAOx4 and able to answer all questions appropriately. Patient lives alone at home and uses a cane intermittently to ambulate. Patient denies headache, dizziness, shortness of breath, chest pain, palpitations, N/V/D, recent falls or trauma, or swelling. Patient is sitting in her hospital bed in no apparent distress. Patient does have small dressing over left lateral breast status post lumpectomy today. Patient denies tobacco use, alcohol use or recreational drug use. Patient was evaluated by Dr. Jerry in the ED who indicated to hold all antihypertensive medications concern, obtain echocardiogram and keep patient n.p.o. after midnight. Cardiology will evaluate in the morning and have further conversation regarding if pacemaker placement is necessary or recommended. Patient will be admitted for further evaluation and management. Please see A/P for further details. Allergies Allergy/AdvReac Type Severity Reaction Status Date / Time erythromycin base Allergy Unknown gi upset Verified 07/28/22 16:25 Penicillins Allergy Unknown hives, rash Verified 07/28/22 16:25 Sulfa (Sulfonamide AdvReac upset Verified 07/28/22 16:25 Antibiotics) stomach Home Medications Medication Instructions Recorded Confirmed Type aspirin 81 mg chewable tablet 81 mg PO DAILY 12/30/18 07/28/22 History atenolol 50 mg tablet 50 mg PO DAILY 12/30/18 07/28/22 History glimepiride 2 mg tablet 2 mg PO BID 12/30/18 07/28/22 History levothyroxine 50 mcg tablet 50 mcg PO DAILY 12/30/18 07/28/22 History loratadine 10 mg tablet (Allergy 10 mg PO DAILY 12/30/18 07/28/22 History Relief (loratadine)) losartan 100 mg tablet 100 mg PO DAILY 12/30/18 07/28/22 History metformin 500 mg tablet,extended 1,000 mg PO BID 12/30/18 07/28/22 History release 24 hr omeprazole 20 mg tablet,delayed 20 mg PO DAILY 12/30/18 07/28/22 History release pravastatin 40 mg tablet 40 mg PO DAILY 12/30/18 07/28/22 History sitagliptin phosphate 100 mg tablet 100 mg PO DAILY 12/30/18 07/28/22 History canagliflozin 100 mg tablet 100 mg PO DAILY 07/03/19 07/28/22 History fluconazole 150 mg tablet 150 mg PO Q3D 2 doses #2 tabs 07/03/19 07/28/22 Rx (Diflucan) metoprolol succinate 25 mg 25 mg PO DAILY 07/03/19 07/28/22 History tablet,extended release 24 hr (Toprol XL) nystatin-triamcinolone 100,000 1 appln topical BID #30 grams 07/03/19 07/28/22 Rx unit/g-0.1 % topical cream Past Med/Surg History Medical History CLL (chronic lymphocytic leukemia) Diabetes mellitus type 2 in nonobese High cholesterol History of chicken pox Hypothyroidism Neuropathy Surgical History (Updated 07/28/22 @ 18:40 by CASEY Brewster) History of cryosurgery to cervix d/t cervical erosion S/P cholecystectomy S/P left mastectomy S/P lumpectomy, left breast S/P oophorectomy right S/P tonsillectomy S/P tubal ligation S/P wisdom tooth extraction Family History Grandmother (Paternal) Breast cancer Denies family history of Ovarian cancer Prostate cancer Colorectal cancer Social History Smoking Status: Never smoker Hx Alcohol Use: No Hx Substance Use: No Preferred Language: Chinese Communication Ability: Effective Gold Burnisher Required: No Beliefs That Will Affect Care: None Current Living Situation: Alone Feels Safe at Home: Yes Safety Concerns: Feels Safe At This Time Assistive Devices: None Review of Systems Review of Systems: Neuro: (-) Falls, trauma, slurred speech HEENT: (-) ATKINS, dizziness, dysphagia, visual or auditory changes CV: (-) CP, palpitations, swelling Resp: (-) SOB GI: (-) appetite changes, N/V/D, bowel changes : (-) urinary changes Skin: (-) rashes Psych: (-) anxiety, depression Physical Exam Physical Exam: Neuro: AAOx4, PERRLA, no aphagia, memory changes, CNII-XII grossly intact HEENT: head normocephalic, moist mucus membranes CV: S1/S2, (-) M/G/R, (-) edema, cap refill < 3 seconds Resp: Lungs CTA in all mcginnis. On RA GI: Abdomen S/NT/ND, Ax4 bowel sounds, (-) CVA tenderness Musculoskeletal: 5/5 B/L UE strength, 5/5 B/L LE strength. No gait disturbance Skin: (-) rashes , (-) erythema. Psych: euthymic mood Results & Data Results & Data Vital Signs (Past 12 Hours) Vital Signs Pulse Resp BP Pulse Ox O2 Del Method O2 Flow Rate 07/28/22 16:26 97 H 07/28/22 15:06 96 Nasal Cannula 4 07/28/22 15:05 50 L 17 130/40 L 88 L Room Air Laboratory Results Short CBC 07/28/22 Range/Units 15:29 WBC 13.16 H (4.8-10.8) K/ul Hgb 13.5 (12.0-16.0) g/dl Hct 39.7 (37.0-47.0) % Plt Count 204 (130-400) K/uL BMP 07/28/22 15:29 Sodium 138 Potassium 4.5 Chloride 102 Carbon Dioxide 27 BUN 12 Creatinine 0.82 Glucose 188 H Calcium 9.4 Liver Function 07/28/22 Range/Units 15:29 Total Bilirubin 0.4 (0.2-1.0) mg/dl AST 33 (13-39) U/L ALT 23 (7-52) U/L Alkaline Phosphatase 64 (34-104) U/L Albumin 3.6 (3.4-5.0) gm/dl Diagnostic Findings Chest X-Ray 07/28/22 15:06 XR chest 1V portable CLINICAL HISTORY: Dysrhythmia COMPARISON STUDY: No previous studies for comparison. FINDINGS: Old deformity of the proximal right humerus is incidentally noted. There is mild cardiomegaly without evidence for pulmonary edema. No pneumothorax or pleural effusion is present. Linear density along the left heart border favors atelectasis. There is no consolidation to suggest pneumonia. There is possible soft tissue gas within the left chest wall. IMPRESSION: 1. No acute cardiopulmonary findings. Mild cardiomegaly. 2. Possible soft tissue gas within the left chest wall. ACT 112: Negative or not required by law. Electronically signed by: Tarik Chacon M.D. 07/28/2022 3:28 PM Code Status & VTE Plan Code Status Full code in the event of cardiac or respiratory arrest VTE Prophylaxis Plan VTE Prophylaxis will be ordered: Yes
[2022-07-28 17:12] LABS: Estimated Average Glucose 197 mg/dl; Hemoglobin A1C 8.5 % (4.5-5.6)
[2022-07-28] MEDS: MAGNESIUM SULFATE / D5W 1 GM/100 ML BAG IV SCH ×2 (17:12→19:20)
--- NOTE | 2022-07-28 17:32 | Communication Note ---
Date of Service: July 28, 2022 ATTENDING ADDENDUM: The patient is an 81-year-old female who came in for an evaluation of abnormal heart rhythm seen in preop holding just prior to a left breast localized partial lumpectomy and left axillary sentinel lymph node biopsy. She is a diabetic female with a history of CLL and infiltrating ductal carcinoma of the left breast. In the ER, she reports feeling asymptomatic. She was seen by cardiology who noted 2-1 AV block present with high degree AV block. Intraoperatively it was noted that her heart rate was 50 bpm with 2-1 AV block. She was hemodynamically stable with no disruption in her procedure but her rhythm change was persistent postoperatively. Metoprolol succinate 50 mg daily is being held. She is currently asymptomatic denying any chest pain, shortness of breath, lightheadedness or other issues. On physical exam she is in no acute distress and is well-nourished well- developed. She has a grayish coloration to her face and skin. She is mentating clearly and has no gross focal neuromuscular deficits. Cardiac exam reveals S1- S2 heard with no murmurs gallops or rubs and regular rate and rhythm. Lungs are clear to auscultation bilaterally. She has a small surgical bandage with gauze over the left breast. Surrounding area of skin appears normal. Work-up in the ER includes a CBC with white blood cell count of 13 K, otherwise normal. Normal coags, BMP unremarkable aside from a glucose of 188. Hemoglobin A1c is 8.5, magnesium is low at 1.3. There are no liver function abnormalities. A chest x-ray reveals possible soft tissue gas within the left chest wall postprocedure EKG reveals sinus bradycardia with a rate of 51bpm with 2:1 block. 1. AV heart block 2. Breast cancer s/p partial mastectomy on 07/28/22 3. DMII 4. CLL Agree with cardiology plans to admit and monitor patient off beta clocker therapy. Pacemaker placement may be warranted if heart block persists. Cont close monitoring of pain or development of other post operative symptoms and use of ice for pain/swelling in the first 24-48 hours. Insulin therapy while hospitalized for blood glucose management. CLL is stable and monitored by [facility] . DO Timbo
[2022-07-28] MEDS ORDERED: GLUCAGON FOR INJ 1 MG VIAL SQ PRN (18:32)
[2022-07-28] MEDS ORDERED: DEXTROSE 50% 50 ML SYRINGE IV PRN (18:32)
[2022-07-28] MEDS ORDERED: GLUCOSE 10 TAB/TUBE PO PRN (18:32)
[2022-07-28] MEDS ORDERED: CARBOHYDRATES FOR HYPOGLYCEMIA PO PRN (18:32)
[2022-07-28] MEDS ORDERED: PHARMACY GLYCEMIC MGMT CONSULT PRN (18:32)
[2022-07-28] MEDS ORDERED: GLUCOSE 40% GEL 15 GM TUBE PO PRN (18:32)
[2022-07-28] MEDS ORDERED: traMADol HCL 50 MG TABLET PO PRN (18:43)
[2022-07-28] MEDS: ACETAMINOPHEN 325 MG TAB PO SCH (19:21)
[2022-07-28] MEDS ORDERED: INFLUENZA VACCINE HIGH DOSE PF 65+ 0.7 ML SYR IM ONE (20:15)
--- NOTE | 2022-07-28 20:21 | Electrocardiogram Report ---
Test Reason : Blood Pressure : / mmHG Vent. Rate : 051 BPM Atrial Rate : 051 BPM P-R Int : 170 ms QRS Dur : 068 ms QT Int : 524 ms P-R-T Axes : 064 000 039 degrees QTc Int : 482 ms Sinus rhythm with 2:1 AV block with escape beats Abnormal ECG No previous ECGs available Confirmed by Trav Topete ([id number]) on 07/28/2022 8:21:10 PM Referred By: Confirmed By:Mathew Topete
[2022-07-28] MEDS: INSULIN ASPART PER UNIT CHARGE SC SCH (20:41)
[2022-07-28] MEDS: LANTUS PER UNIT CHARGE SQ SCH (20:42)
[2022-07-29] MEDS: INSULIN ASPART PER UNIT CHARGE SC SCH ×6 (00:17→20:34)
[2022-07-29] MEDS: ACETAMINOPHEN 325 MG TAB PO SCH ×3 (02:23→19:45)
[2022-07-29 07:07] LABS: Hematocrit (blood only) 37.4 % (37.0-47.0); Hemoglobin 12.6 g/dl (12.0-16.0); Mean Corpuscular Hemoglobin 28.7 pg (25.0-34.0); Mean Corpuscular Hgb Conc 33.7 g/dL (32.0-36.0); Mean Corpuscular Volume 85.2 fL (80.0-100.0); Mean Platelet Volume 11.1 fL (9.4-12.4); Platelet Count 233 K/uL (130-400); RDW Coefficient of Variation 13.6 % (11.5-14.5); RDW Standard Deviation 42.4 fL (36.4-46.3); Red Blood Count 4.39 M/uL (4.20-5.40); White Blood Count 16.41 K/ul (4.8-10.8)
[2022-07-29 07:24] LABS: BUN Creatinine Ratio 19.8 (10-20); Calcium 8.9 mg/dl (8.6-10.3); Creatinine Clr Calc Pharmacy 39.7 ml/min; Est GFR (African American) 69.1 ml/min; Est GFR (Non-African American) 59.6 ml/min; Magnesium 1.9 mg/dl (1.7-2.4); Potassium 4.8 mmol/L (3.5-5.1)
[2022-07-29] MEDS: LOSARTAN POTASSIUM 50 MG TAB PO SCH (08:36)
[2022-07-29] MEDS: PRAVASTATIN SOD 40 MG TAB PO SCH (08:36)
[2022-07-29] MEDS: PANTOprazole 40 MG TAB PO SCH (08:36)
[2022-07-29] MEDS: LEVOTHYROXINE SODIUM 50 MCG TABLET PO SCH (08:37)
--- NOTE | 2022-07-29 12:02 | Hospitalist Progress Note ---
Date of Service July 29, 2022 Assessment & Plan (1) AV heart block: (2) CLL (chronic lymphocytic leukemia): (3) HTN (hypertension): (4) S/P lumpectomy, left breast: (5) Hypomagnesemia: (6) Diabetes mellitus type 2 in nonobese: (7) Hypothyroidism: Plan 81-year-old female with PMH of abnormal annual mammogram, T2DM, HTN, HLD and hypothyroidism presented 07/28 from [facility] after being found to be in an abnormal heart rhythm in preop holding area just prior to partial lumpectomy with lymph node biopsy. She is being managed for the following: AV heart block: Noted to be an abnormal heart rhythm in preop holding just prior to partial lumpectomy and sentinel lymph node biopsy on 07/28/2022 at [facility]. Admitting tropes WNL, admitting EKG with 2 is to 1 AV block. Patient takes metoprolol, amlodipine and losartan; metoprolol on hold. Cardiology on board, echo pending, n.p.o. until cleared per cardiology External pacer pads placed while on PCU Patient asymptomatic with no chest pain. Continue with telemetry monitoring. Hypomagnesemia: 1.3 at presentation, monitor and replete. Goal of greater than 2.0. CLL: Status post left lumpectomy Left axillary lymph node biopsy: Left partial mastectomy and sentinel lymph node biopsy completed 07/28 at [facility] Follows with Dr. Cruz Pain control with Tylenol and Tramadol PRN ice rotating at site of lumpectomy Diabetes mellitus type 2: Takes Glipizide and Metformin; DC while inpt Takes Trulicity; last dose on Sunday; hold while inpt FSBS ACHS SSI while inpatient Check A1c in a.m. HTN: Patient takes metoprolol, amlodipine and losartan; hold metoprolol secondary to AV block. Hypothyroidism: Takes levothyroxine; continue Disposition: PCP: Dr. Dahl CODE STATUS: Full code VTE prophylaxis: Teds and SCDs for now Admission and Anticipated Discharge Date Admission Date: July 28, 2022 Subjective Patient seen and examined at bedside as a follow-up of atrial ventricular heart block, hypomagnesemia, status post left lumpectomy and left axillary lymph node biopsy. Patient was lying in bed, NAD, denies any new acute event overnight, reports no pain at left axilla where lumpectomy and biopsy was taken yesterday, clean dressing without soakage, denies headache or dizziness or chest pain or palpitation or belly pain, is n.p.o. until cardiology evaluation/clearance. Physical Exam Physical Exam: GENERAL: Alert and oriented x3. NAD, on RA. HEENT: No pallor, no icterus. Pupils equal, round and reactive to light. Oral mucosa moist. NECK: No JVD, no neck masses. HEART: S1 and S2 heard. Regular rate and rhythm. No murmur, no gallop. RESPIRATORY SYSTEM: Normal AP diameter. No accessory muscle use. No wheezing, no crackles. ABDOMEN: Soft, bowel sounds present, nontender, no distention. CENTRAL NERVOUS SYSTEM: No facial droop. Speech is clear. Obeys simple commands. Moves extremities. EXTREMITIES: No edema, no erythema seen. Lt Axilla w/ c/d/i dressing. No erythema or tenderness. Results & Data Results & Data Vital Signs (Past 12 Hours) Vital Signs Temp Pulse Pulse Resp BP Pulse Ox O2 Del Method 07/29/22 07:34 36.5 C 47 L 18 134/62 92 Room Air 07/29/22 07:27 52 L 07/29/22 04:22 36.4 C L 49 L 20 117/68 92 Room Air
[2022-07-29] MEDS: ASPIRIN 81 MG CHEW PO SCH (12:19)
--- NOTE | 2022-07-29 12:23 | Electrocardiogram Report ---
Test Reason : Blood Pressure : / mmHG Vent. Rate : 048 BPM Atrial Rate : 048 BPM P-R Int : 180 ms QRS Dur : 064 ms QT Int : 454 ms P-R-T Axes : 053 -12 016 degrees QTc Int : 405 ms Sinus rhythm with 2:1 A-V conduction Possible Left atrial enlargement Poor R wave progression, consider anterior VA vs. lead placement vs. LVH Abnormal ECG When compared with ECG of 28-JUL-2022 15:16, Previous ECG has undetermined rhythm, needs review QT has shortened Confirmed by Elijah Grissom ([id number]) on 07/29/2022 12:22:48 PM Referred By: REFERRED SELF Confirmed By:Elijah Grissom
[2022-07-29 13:13] LABS: Lyme Ab IgM w/WB Rflx Negative (Negative)
[2022-07-29 13:15] LABS: Lyme Ab IgG w/WB Rflx Negative (Negative)
--- NOTE | 2022-07-29 14:38 | Pharmacy Report ---
Pharmacy Glycemic Short Note 2 - Date of Service July 29, 2022 - Glycemic Short BSG Results (Last 24 hours): 07/28/22 07/28/22 07/28/22 15:29 20:04 20:05 Glucose 188 H POC Glucose 398 H* 328 H* 07/29/22 07/29/22 07/29/22 00:13 04:13 06:11 Glucose 209 H POC Glucose 296 H 221 H 07/29/22 07/29/22 07:33 11:26 Glucose POC Glucose 165 H 127 H OUTPATIENT ANTIDIABETIC REGIMEN: * canagliflozin, glimepiride, metformin, sitagliptan ASSESSMENT: * 81 year old admitted with abnormal heart rhythm. NPO until cleared by cardiology. Pharmacy consulted for glycemic management. Patient managed on oral agents at home for diabetes * Patient received total of 21 units of insulin yesterday, of which 10 units were basal insulin * Fasting BSG 165 mg/dL - AM basal insulin held this morning, will resume for tonight and add scale in case diet started PLAN FOR INPATIENT GLYCEMIC CONTROL: * Hold outpatient oral diabetes medications * Basal insulin * Lantus 0-10 units HS based upon bsg value * Bolus insulin * NovoLog per scale ACHS or Q6hrs while NPO * Goal Range: Low 110 mg/dL - High 140 mg/dL * Correction Factor: 25 mg/dL/unit * Nutritional / Prandial insulin per carb ratio of 1 unit per 9 grams CHO consumed
--- NOTE | 2022-07-29 14:47 | Cardiology Progress Note ---
Date of Service July 29, 2022 Assessment & Plan (1) AV heart block: (2) HTN (hypertension): Plan 81-year-old female without underlying cardiac disease but history of hypertension on beta-marito therapy who underwent routine surgery with left mastectomy and sentinel node biopsy today. Intraoperatively noted with heart rate of 50 2-1 AV block. Patient hemodynamically stable with no disruption in procedure. Due to persistent rhythm changes however patient was referred for in patient telemetry and monitoring. EKG and telemetry strips reviewed. 2-1 AV block present high-grade AV block may be present on 1 strip Plan: Admit to telemetry. Hold metoprolol succinate. Complete cardiac evaluation with echocardiogram If AV block remains persistent or progresses may warrant pacemaker insertion discussed with patient and family. Currently no acute hemodynamic compromise or suggestion of myocardial injury or ischemia Update 07/29/2022: Has remained in stable 2 1 AV block overnight Continues to be asymptomatic At this point the hope is that she will resume normal sinus rhythm with normal conduction once beta-marito has been washed out of her system, obviously, continue to hold metoprolol Continue to monitor on telemetry. Should she not achieve normal conduction then consideration for pacemaker placement next week Admission and Anticipated Discharge Date Admission Date: July 28, 2022 Subjective Patient seen and examined. Chart reviewed. Telemetry reviewed. Daughter at bedside. Patient without complaint and states that she feels well. Review of Systems Review of Systems: All systems reviewed & are unremarkable except as noted in HPI & below Physical Exam Physical Exam: General: Awake, alert and oriented x 3. No acute distress. HEENT: Normocephalic, atraumatic. Pupils equal, round and reactive to light and accommodation. Extraocular muscles are intact. Anicteric sclera. Moist mucous membranes. Neck: No JVD. No bruit. Cardiovascular: Regular but slow. Positive S-4. Normal S-1 and S-2. No S-3. 3/6 mid to late systolic ejection murmur, greatest at the right sternal border, second intercostal space with radiation to the bilateral carotids. No rubs. Pulmonary: Clear to auscultation bilaterally. No rales, rhonchi, or wheezing. Abdomen: Bowel sounds x 4, soft. No rebound, guarding or tenderness. No organomegaly. Extremities: No clubbing, cyanosis or edema. +2 pedal pulses bilaterally. Skin: Warm and dry. Results & Data Vital Signs (Past 12 Hours) Vital Signs Temp Pulse Pulse Resp BP Pulse Ox O2 Del Method 07/29/22 11:56 36.6 C 50 L 18 120/90 92 Room Air 07/29/22 07:34 36.5 C 47 L 18 134/62 92 Room Air 07/29/22 07:27 52 L 07/29/22 04:22 36.4 C L 49 L 20 117/68 92 Room Air
[2022-07-29] MEDS: LANTUS PER UNIT CHARGE SQ SCH (20:34)
[2022-07-30] MEDS: ACETAMINOPHEN 325 MG TAB PO SCH ×3 (03:02→18:24)
[2022-07-30 07:23] LABS: Hematocrit (blood only) 38.7 % (37.0-47.0); Hemoglobin 12.5 g/dl (12.0-16.0); Mean Corpuscular Hemoglobin 28.4 pg (25.0-34.0); Mean Corpuscular Hgb Conc 32.3 g/dL (32.0-36.0); Mean Platelet Volume 10.8 fL (9.4-12.4); Platelet Count 190 K/uL (130-400); RDW Coefficient of Variation 13.9 % (11.5-14.5); RDW Standard Deviation 44.5 fL (36.4-46.3); White Blood Count 11.32 K/ul (4.8-10.8)
[2022-07-30 07:37] LABS: BUN Creatinine Ratio 18.2 (10-20); Creatinine Clr Calc Pharmacy 40.9 ml/min; Est GFR (African American) 71.9 ml/min; Est GFR (Non-African American) 62.1 ml/min; Magnesium 1.5 mg/dl (1.7-2.4); Phosphorus 4.4 mg/dl (2.5-4.9); Potassium 4.1 mmol/L (3.5-5.1)
[2022-07-30] MEDS: INSULIN ASPART PER UNIT CHARGE SC SCH ×4 (08:40→20:28)
[2022-07-30] MEDS: MAGNESIUM OXIDE 400 MG TAB PO SCH ×2 (08:49→20:29)
[2022-07-30] MEDS: PRAVASTATIN SOD 40 MG TAB PO SCH (08:49)
[2022-07-30] MEDS: LOSARTAN POTASSIUM 50 MG TAB PO SCH (08:49)
[2022-07-30] MEDS: PANTOprazole 40 MG TAB PO SCH (08:49)
[2022-07-30] MEDS: ASPIRIN 81 MG CHEW PO SCH (08:49)
[2022-07-30] MEDS: LEVOTHYROXINE SODIUM 50 MCG TABLET PO SCH (08:49)
[2022-07-30] MEDS: MAGNESIUM SULFATE / D5W 1 GM/100 ML BAG IV SCH ×3 (08:58→12:51)
--- NOTE | 2022-07-30 11:42 | Electrocardiogram Report ---
Test Reason : Blood Pressure : / mmHG Vent. Rate : 045 BPM Atrial Rate : 074 BPM P-R Int : 000 ms QRS Dur : 098 ms QT Int : 470 ms P-R-T Axes : 049 -13 041 degrees QTc Int : 406 ms Sinus rhythm with 2:1 A-V conduction Minimal voltage criteria for LVH, may be normal variant Abnormal ECG When compared with ECG of 28-JUL-2022 17:43, QRS duration has increased Confirmed by Elijah Grissom ([id number]) on 07/30/2022 11:42:00 AM Referred By: REFERRED SELF Confirmed By:Elijah Grissom
--- NOTE | 2022-07-30 11:45 | Electrocardiogram Report ---
Test Reason : Blood Pressure : / mmHG Vent. Rate : 055 BPM Atrial Rate : 055 BPM P-R Int : 166 ms QRS Dur : 080 ms QT Int : 450 ms P-R-T Axes : 054 -04 037 degrees QTc Int : 430 ms Sinus bradycardia Blocked Premature atrial complexes Otherwise normal ECG When compared with ECG of 29-JUL-2022 11:43, (unconfirmed) Sinus rhythm is no longer with 2:1 A-V conduction Confirmed by Elijah Grissom ([id number]) on 07/30/2022 11:45:18 AM Referred By: REFERRED SELF Confirmed By:Elijah Grissom
--- NOTE | 2022-07-30 13:24 | Pharmacy Report ---
Pharmacy Glycemic Short Note 2 - Date of Service July 30, 2022 - Glycemic Short BSG Results (Last 24 hours): 07/29/22 07/29/22 07/30/22 16:09 19:59 06:52 Glucose 66 L POC Glucose 80 225 H 07/30/22 07/30/22 07/30/22 07:22 07:39 11:07 Glucose POC Glucose 61 L* 77 141 H OUTPATIENT ANTIDIABETIC REGIMEN: * canagliflozin, glimepiride, metformin, sitagliptan ASSESSMENT: 07/30 * Patient received total of 17 units of insulin yesterday, of which 10 units were basal * Fasting BSG below goal range at 61 mg/dL - will hold basal insulin for now. Patient to be NPO at midnight. Per notes, patient given crackers this morning for lower BSG / no symptoms of hypoglycemia * Continue novolog for now 07/29 * 81 year old admitted with abnormal heart rhythm. NPO until cleared by cardiology. Pharmacy consulted for glycemic management. Patient managed on oral agents at home for diabetes * Patient received total of 21 units of insulin yesterday, of which 10 units were basal insulin * Fasting BSG 165 mg/dL - AM basal insulin held this morning, will resume for tonight and add scale in case diet started PLAN FOR INPATIENT GLYCEMIC CONTROL: * Hold outpatient oral diabetes medications * Basal insulin * Lantus - hold * Bolus insulin * NovoLog per scale ACHS or Q6hrs while NPO * Goal Range: Low 110 mg/dL - High 140 mg/dL * Correction Factor: 35 mg/dL/unit * Nutritional / Prandial insulin per carb ratio of 1 unit per 12 grams CHO consumed
--- NOTE | 2022-07-30 13:38 | Cardiology Progress Note ---
Date of Service July 30, 2022 Assessment & Plan (1) AV heart block: (2) HTN (hypertension): Plan 81-year-old female without underlying cardiac disease but history of hypertension on beta-marito therapy who underwent routine surgery with left mastectomy and sentinel node biopsy today. Intraoperatively noted with heart rate of 50 2-1 AV block. Patient hemodynamically stable with no disruption in procedure. Due to persistent rhythm changes however patient was referred for in patient telemetry and monitoring. EKG and telemetry strips reviewed. 2-1 AV block present high-grade AV block may be present on 1 strip Plan: Admit to telemetry. Hold metoprolol succinate. Complete cardiac evaluation with echocardiogram If AV block remains persistent or progresses may warrant pacemaker insertion discussed with patient and family. Currently no acute hemodynamic compromise or suggestion of myocardial injury or ischemia Update 07/29/2022: Has remained in stable 2 1 AV block overnight Continues to be asymptomatic At this point the hope is that she will resume normal sinus rhythm with normal conduction once beta-marito has been washed out of her system, obviously, continue to hold metoprolol Continue to monitor on telemetry. Should she not achieve normal conduction then consideration for pacemaker placement next week Admission and Anticipated Discharge Date Admission Date: July 28, 2022 Subjective Patient seen and examined. Chart reviewed. Telemetry reviewed. Daughter at bedside. Patient without complaint and states that she feels well. Physical Exam Physical Exam: General: Awake, alert and oriented x 3. No acute distress. HEENT: Normocephalic, atraumatic. Pupils equal, round and reactive to light and accommodation. Extraocular muscles are intact. Anicteric sclera. Moist mucous membranes. Neck: No JVD. No bruit. Cardiovascular: Regular but slow. Positive S-4. Normal S-1 and S-2. No S-3. 3/6 mid to late systolic ejection murmur, greatest at the right sternal border, second intercostal space with radiation to the bilateral carotids. No rubs. Pulmonary: Clear to auscultation bilaterally. No rales, rhonchi, or wheezing. Abdomen: Bowel sounds x 4, soft. No rebound, guarding or tenderness. No organomegaly. Extremities: No clubbing, cyanosis or edema. +2 pedal pulses bilaterally. Skin: Warm and dry. Results & Data Vital Signs (Past 12 Hours) Vital Signs Temp Pulse Pulse Resp BP Pulse Ox O2 Del Method 07/30/22 11:38 36.6 C 57 L 16 158/59 H 97 Room Air 07/30/22 07:51 36.5 C 61 16 132/63 91 Room Air 07/30/22 07:13 59 L 07/30/22 02:49 36.6 C 50 L 17 141/47 H 95 Room Air
--- NOTE | 2022-07-30 13:54 | Electrocardiogram Report ---
Test Reason : Blood Pressure : / mmHG Vent. Rate : 040 BPM Atrial Rate : 040 BPM P-R Int : 168 ms QRS Dur : 088 ms QT Int : 458 ms P-R-T Axes : 000 -26 -03 degrees QTc Int : 373 ms Sinus rhythm with 2:1 A-V conduction Minimal voltage criteria for LVH, may be normal variant Nonspecific T wave abnormality Abnormal ECG When compared with ECG of 30-JUL-2022 05:43, Premature atrial complexes are no longer Present Nonspecific T wave abnormality now evident in Inferior leads QT has shortened Confirmed by Elijah Grissom ([id number]) on 07/30/2022 1:53:58 PM Referred By: REFERRED SELF Confirmed By:Elijah Grissom
--- NOTE | 2022-07-30 15:43 | Hospitalist Progress Note ---
Date of Service July 30, 2022 Assessment & Plan (1) AV heart block: (2) CLL (chronic lymphocytic leukemia): (3) HTN (hypertension): (4) S/P lumpectomy, left breast: (5) Hypomagnesemia: (6) Diabetes mellitus type 2 in nonobese: (7) Hypothyroidism: Plan 81-year-old female with PMH of abnormal annual mammogram, T2DM, HTN, HLD and hypothyroidism presented 07/28 from [facility] after being found to be in an abnormal heart rhythm in preop holding area just prior to partial lumpectomy with lymph node biopsy. She is being managed for the following: AV heart block: Noted to be an abnormal heart rhythm in preop holding just prior to partial lumpectomy and sentinel lymph node biopsy on 07/28/2022 at [facility]. Admitting tropes WNL, admitting EKG with 2 is to 1 AV block. ECHO w/ EF 60-65%, Gr I diastolic dysfunction. Patient takes metoprolol, amlodipine and losartan; metoprolol on hold. Cardiology on board, NPO midnight for pacer placement eval in AM. External pacer pads placed while on PCU Patient asymptomatic with no chest pain. Continue with telemetry monitoring. Hypomagnesemia: 1.3 at presentation, monitor and replete. Goal of greater than 2.0. CLL: Status post left lumpectomy Left axillary lymph node biopsy: Left partial mastectomy and sentinel lymph node biopsy completed 07/28 at [facility] Follows with Dr. Cruz Pain control with Tylenol and Tramadol PRN ice rotating at site of lumpectomy Diabetes mellitus type 2: Takes Glipizide and Metformin; DC while inpt Takes Trulicity; last dose on Sunday; hold while inpt FSBS ACHS SSI while inpatient HTN: Patient takes metoprolol, amlodipine and losartan; hold metoprolol secondary to AV block. Hypothyroidism: Takes levothyroxine; continue Disposition: PCP: Dr. Dahl CODE STATUS: Full code VTE prophylaxis: Teds and SCDs for now Admission and Anticipated Discharge Date Admission Date: July 28, 2022 Subjective Patient seen and examined at bedside as a follow-up of atrial ventricular heart block, hypomagnesemia, status post left lumpectomy and left axillary lymph node biopsy. 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 Physical Exam Physical Exam: GENERAL: Alert and oriented x3. NAD, on RA. HEENT: No pallor, no icterus. Pupils equal, round and reactive to light. Oral mucosa moist. NECK: No JVD, no neck masses. HEART: S1 and S2 heard. Regular rate and rhythm. No murmur, no gallop. RESPIRATORY SYSTEM: Normal AP diameter. No accessory muscle use. No wheezing, no crackles. ABDOMEN: Soft, bowel sounds present, nontender, no distention. CENTRAL NERVOUS SYSTEM: No facial droop. Speech is clear. Obeys simple commands. Moves extremities. EXTREMITIES: No edema, no erythema seen. Lt Axilla w/ c/d/i dressing. No erythema or tenderness. Results & Data Results & Data Vital Signs (Past 12 Hours) Vital Signs Temp Pulse Pulse Resp BP Pulse Ox O2 Del Method 07/30/22 15:32 45 L 07/30/22 11:38 36.6 C 57 L 16 158/59 H 97 Room Air 07/30/22 07:51 36.5 C 61 16 132/63 91 Room Air 07/30/22 07:13 59 L
[2022-07-31] MEDS: ACETAMINOPHEN 325 MG TAB PO SCH ×3 (02:37→18:12)
[2022-07-31 07:04] LABS: Hematocrit (blood only) 39.4 % (37.0-47.0); Hemoglobin 13.1 g/dl (12.0-16.0); Mean Corpuscular Hemoglobin 28.7 pg (25.0-34.0); Mean Corpuscular Hgb Conc 33.2 g/dL (32.0-36.0); Mean Corpuscular Volume 86.2 fL (80.0-100.0); Mean Platelet Volume 10.6 fL (9.4-12.4); Platelet Count 170 K/uL (130-400); RDW Coefficient of Variation 13.8 % (11.5-14.5); RDW Standard Deviation 42.6 fL (36.4-46.3); Red Blood Count 4.57 M/uL (4.20-5.40); White Blood Count 9.44 K/ul (4.8-10.8)
[2022-07-31 07:35] LABS: BUN Creatinine Ratio 13.8 (10-20); Calcium 9.2 mg/dl (8.6-10.3); Est GFR (African American) 72.9 ml/min; Est GFR (Non-African American) 62.9 ml/min; Magnesium 1.8 mg/dl (1.7-2.4); Phosphorus 3.8 mg/dl (2.5-4.9); Potassium 4.4 mmol/L (3.5-5.1)
[2022-07-31] MEDS: PANTOprazole 40 MG TAB PO SCH (09:19)
[2022-07-31] MEDS: PRAVASTATIN SOD 40 MG TAB PO SCH (09:19)
[2022-07-31] MEDS: LEVOTHYROXINE SODIUM 50 MCG TABLET PO SCH (09:20)
[2022-07-31] MEDS: LOSARTAN POTASSIUM 50 MG TAB PO SCH (09:20)
[2022-07-31] MEDS: ASPIRIN 81 MG CHEW PO SCH (09:20)
[2022-07-31] MEDS: MAGNESIUM OXIDE 400 MG TAB PO SCH ×2 (10:11→20:43)
[2022-07-31] MEDS: INSULIN ASPART PER UNIT CHARGE SC SCH ×4 (10:21→20:43)
--- NOTE | 2022-07-31 11:44 | Pharmacy Report ---
Pharmacy Glycemic Short Note 2 - Date of Service July 31, 2022 - Glycemic Short BSG Results (Last 24 hours): 07/30/22 07/30/22 07/31/22 16:19 20:15 06:40 Glucose 127 H POC Glucose 186 H 154 H 07/31/22 07/31/22 07:13 11:18 Glucose POC Glucose 117 H 138 H OUTPATIENT ANTIDIABETIC REGIMEN: * Metformin ER 1000 mg PO BIDM * Januvia 100 mg PO daily * Glimepiride 2 mg PO BIDM * Invokana 100 mg PO daily * HbA1c: 8.5% (07/28/22) ASSESSMENT: 07/31: * Sera received 14 units of insulin yesterday, all bolus. BSGs were: 62-991-073-154 mg/dL. * Fasting BSG was 117 mg/dL this AM, improved. * Patient was originally NPO for a pacemaker placement this AM but this has been moved until tomorrow so T2DM diet ordered until midnight. * Will continue without basal insulin at this time. May require a dose tomorrow after PPM placement once diet is ordered. * Tightened Novolog slighlty this morning. 07/30: * Patient received total of 17 units of insulin yesterday, of which 10 units were basal * Fasting BSG below goal range at 61 mg/dL - will hold basal insulin for now. Patient to be NPO at midnight. Per notes, patient given crackers this morning for lower BSG / no symptoms of hypoglycemia * Continue novolog for now 07/29: * 81 year old admitted with abnormal heart rhythm. NPO until cleared by cardiology. Pharmacy consulted for glycemic management. Patient managed on oral agents at home for diabetes * Patient received total of 21 units of insulin yesterday, of which 10 units were basal insulin * Fasting BSG 165 mg/dL - AM basal insulin held this morning, will resume for tonight and add scale in case diet started PLAN FOR INPATIENT GLYCEMIC CONTROL: * Hold outpatient oral diabetes medications * No basal insulin * Bolus insulin * NovoLog per scale ACHS or Q6hrs while NPO * Goal Range: Low 110 mg/dL - High 140 mg/dL * Correction Factor: 30 mg/dL/unit * Nutritional / Prandial insulin per carb ratio of 1 unit per 10 grams CHO consumed
--- NOTE | 2022-07-31 12:00 | Cardiology Progress Note ---
Date of Service July 31, 2022 Assessment & Plan (1) AV heart block: (2) HTN (hypertension): Plan 81-year-old female without underlying cardiac disease but history of hypertension on beta-marito therapy who underwent routine surgery with left mastectomy and sentinel node biopsy today. Intraoperatively noted with heart rate of 50 2-1 AV block. Patient hemodynamically stable with no disruption in procedure. Due to persistent rhythm changes however patient was referred for in patient telemetry and monitoring. EKG and telemetry strips reviewed. 2-1 AV block present high-grade AV block may be present on 1 strip Plan: Admit to telemetry. Hold metoprolol succinate. Complete cardiac evaluation with echocardiogram If AV block remains persistent or progresses may warrant pacemaker insertion discussed with patient and family. Currently no acute hemodynamic compromise or suggestion of myocardial injury or ischemia Update 07/29/2022: Has remained in stable 2 1 AV block overnight Continues to be asymptomatic At this point the hope is that she will resume normal sinus rhythm with normal conduction once beta-marito has been washed out of her system, obviously, continue to hold metoprolol Continue to monitor on telemetry. Should she not achieve normal conduction then consideration for pacemaker placement next week Update 07/31/2022: Conduction has improved now with times of sinus rhythm and occasional winky block We will continue to monitor overnight to determine if pacemaker is necessary in the a.m. N.p.o. after midnight Admission and Anticipated Discharge Date Admission Date: July 28, 2022 Subjective Patient seen and examined with daughter at bedside. Chart reviewed. Telemetry reviewed. Remains without complaint. Review of Systems Review of Systems: All systems reviewed & are unremarkable except as noted in HPI & below Physical Exam Physical Exam: General: Awake, alert and oriented x 3. No acute distress. HEENT: Normocephalic, atraumatic. Pupils equal, round and reactive to light and accommodation. Extraocular muscles are intact. Anicteric sclera. Moist mucous membranes. Neck: No JVD. No bruit. Cardiovascular: Regular but slow. Positive S-4. Normal S-1 and S-2. No S-3. 3/6 mid to late systolic ejection murmur, greatest at the right sternal border, second intercostal space with radiation to the bilateral carotids. No rubs. Pulmonary: Clear to auscultation bilaterally. No rales, rhonchi, or wheezing. Abdomen: Bowel sounds x 4, soft. No rebound, guarding or tenderness. No organomegaly. Extremities: No clubbing, cyanosis or edema. +2 pedal pulses bilaterally. Skin: Warm and dry. Results & Data Vital Signs (Past 12 Hours) Vital Signs Temp Pulse Resp BP Pulse Ox O2 Del Method 07/31/22 11:19 36.9 C 66 18 166/79 H 95 Room Air 07/31/22 07:13 36.9 C 61 17 144/72 H 92 Room Air 07/31/22 03:00 36.5 C 55 L 18 145/66 H 97 Room Air
--- NOTE | 2022-07-31 15:06 | Electrocardiogram Report ---
Test Reason : Blood Pressure : / mmHG Vent. Rate : 056 BPM Atrial Rate : 056 BPM P-R Int : 172 ms QRS Dur : 080 ms QT Int : 432 ms P-R-T Axes : 044 -10 028 degrees QTc Int : 416 ms Sinus bradycardia with sinus arrhythmia Otherwise normal ECG When compared with ECG of 30-JUL-2022 11:22, Nonspecific T wave abnormality, improved in Inferior leads Confirmed by Elijah Grissom ([id number]) on 07/31/2022 3:06:09 PM Referred By: REFERRED SELF Confirmed By:Elijah Grissom
--- NOTE | 2022-07-31 15:19 | Electrocardiogram Report ---
Test Reason : Blood Pressure : / mmHG Vent. Rate : 052 BPM Atrial Rate : 091 BPM P-R Int : 000 ms QRS Dur : 088 ms QT Int : 452 ms P-R-T Axes : 052 -20 076 degrees QTc Int : 420 ms Sinus rhythm with intermittent 2:1 AV conduction Left ventricular hypertrophy with repolarization abnormality Abnormal ECG When compared with ECG of 31-JUL-2022 06:00, (unconfirmed) Significant changes have occurred Confirmed by Elijah Grissom ([id number]) on 07/31/2022 3:19:24 PM Referred By: REFERRED SELF Confirmed By:Elijah Grissom
[2022-07-31] MEDS ORDERED: amLODIPine BESYLATE 5 MG TAB PO ONE (17:16)
[2022-07-31] MEDS ORDERED: hydrALAZINE HCL 20 MG/ML VIAL IV PRN (17:26)
--- NOTE | 2022-07-31 17:32 | Hospitalist Progress Note ---
Date of Service July 31, 2022 Assessment & Plan (1) AV heart block: (2) CLL (chronic lymphocytic leukemia): (3) HTN (hypertension): (4) S/P lumpectomy, left breast: (5) Hypomagnesemia: (6) Diabetes mellitus type 2 in nonobese: (7) Hypothyroidism: Plan 81-year-old female with PMH of abnormal annual mammogram, T2DM, HTN, HLD and hypothyroidism presented 07/28 from [facility] after being found to be in an abnormal heart rhythm in preop holding area just prior to partial lumpectomy with lymph node biopsy. She is being managed for the following: AV heart block: Noted to be an abnormal heart rhythm in preop holding just prior to partial lumpectomy and sentinel lymph node biopsy on 07/28/2022 at [facility]. Admitting tropes WNL, admitting EKG with 2 is to 1 AV block. ECHO w/ EF 60-65%, Gr I diastolic dysfunction. Patient takes metoprolol, amlodipine and losartan; metoprolol on hold. Cardiology on board, NPO midnight for pacer placement eval in AM. External pacer pads placed while on PCU Patient asymptomatic with no chest pain. Continue with telemetry monitoring. Hypomagnesemia: 1.3 at presentation, monitor and replete. Goal of greater than 2.0. CLL: Status post left lumpectomy Left axillary lymph node biopsy: Left partial mastectomy and sentinel lymph node biopsy completed 07/28 at [facility] Follows with Dr. Cruz Pain control with Tylenol and Tramadol PRN ice rotating at site of lumpectomy Diabetes mellitus type 2: Takes Glipizide and Metformin; DC while inpt Takes Trulicity; last dose on Sunday; hold while inpt FSBS ACHS SSI while inpatient HTN: Patient takes metoprolol, amlodipine and losartan; hold metoprolol secondary to AV block. Hypothyroidism: Takes levothyroxine; continue Disposition: PCP: Dr. Dahl CODE STATUS: Full code VTE prophylaxis: Teds and SCDs for now Admission and Anticipated Discharge Date Admission Date: July 28, 2022 Subjective Patient seen and examined at bedside as a follow-up of atrial ventricular heart block, hypomagnesemia, status post left lumpectomy and left axillary lymph node biopsy. 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 No plan for pacer today. Physical Exam Physical Exam: GENERAL: Alert and oriented x3. NAD, on RA. HEENT: No pallor, no icterus. Pupils equal, round and reactive to light. Oral mucosa moist. NECK: No JVD, no neck masses. HEART: S1 and S2 heard. Regular rate and rhythm. No murmur, no gallop. RESPIRATORY SYSTEM: Normal AP diameter. No accessory muscle use. No wheezing, no crackles. ABDOMEN: Soft, bowel sounds present, nontender, no distention. CENTRAL NERVOUS SYSTEM: No facial droop. Speech is clear. Obeys simple commands. Moves extremities. EXTREMITIES: No edema, no erythema seen. Lt Axilla w/ c/d/i dressing. No erythema or tenderness. Results & Data Results & Data Vital Signs (Past 12 Hours) Vital Signs Temp Pulse Pulse Resp BP Pulse Ox O2 Del Method 07/31/22 16:26 168/76 H 07/31/22 16:06 36.7 C 59 L 18 184/70 H 93 Room Air 07/31/22 15:00 46 L 07/31/22 06:00 61 07/31/22 15:00 49 L 182/70 H 07/31/22 11:19 36.9 C 66 18 166/79 H 95 Room Air 07/31/22 07:13 36.9 C 61 17 144/72 H 92 Room Air
[2022-08-01] MEDS: ACETAMINOPHEN 325 MG TAB PO SCH ×3 (02:26→19:49)
[2022-08-01 07:12] LABS: BUN Creatinine Ratio 16.3 (10-20); Calcium 9.5 mg/dl (8.6-10.3); Creatinine Clr Calc Pharmacy 36.9 ml/min; Est GFR (African American) 63.1 ml/min; Est GFR (Non-African American) 54.5 ml/min; Magnesium 1.6 mg/dl (1.7-2.4); Phosphorus 3.9 mg/dl (2.5-4.9); Potassium 4.8 mmol/L (3.5-5.1)
[2022-08-01] MEDS: MAGNESIUM OXIDE 400 MG TAB PO SCH ×2 (08:28→20:54)
[2022-08-01] MEDS: ASPIRIN 81 MG CHEW PO SCH (08:29)
[2022-08-01] MEDS: LEVOTHYROXINE SODIUM 50 MCG TABLET PO SCH (08:29)
[2022-08-01] MEDS: LOSARTAN POTASSIUM 50 MG TAB PO SCH (08:29)
[2022-08-01] MEDS: PANTOprazole 40 MG TAB PO SCH (08:30)
[2022-08-01] MEDS: PRAVASTATIN SOD 40 MG TAB PO SCH (08:31)
[2022-08-01] MEDS: amLODIPine BESYLATE 5 MG TAB PO SCH (08:31)
[2022-08-01] MEDS: INSULIN ASPART PER UNIT CHARGE SC SCH ×4 (08:46→20:55)
[2022-08-01] MEDS ORDERED: INSULIN ASPART PER UNIT CHARGE SC ONE (09:09)
[2022-08-01] MEDS ORDERED: LANTUS PER UNIT CHARGE SQ ONE ×2 (09:09→14:30)
[2022-08-01] MEDS: MAGNESIUM SULFATE / D5W 1 GM/100 ML BAG IV SCH ×3 (09:47→14:31)
--- NOTE | 2022-08-01 10:38 | Pharmacy Report ---
Pharmacy Glycemic Short Note 2 - Date of Service August 01, 2022 - Glycemic Short BSG Results (Last 24 hours): 07/31/22 07/31/22 07/31/22 11:18 16:05 20:12 Glucose POC Glucose 138 H 243 H 188 H 08/01/22 08/01/22 06:22 07:27 Glucose 187 H POC Glucose 164 H OUTPATIENT ANTIDIABETIC REGIMEN: * Metformin ER 1000 mg PO BIDM * Januvia 100 mg PO daily * Glimepiride 2 mg PO BIDM * Invokana 100 mg PO daily * HbA1c: 8.5% (07/28/22) ASSESSMENT: 08/01: * NPO for anticipated pacemaker placement today * Post-prandial BSG's yesterday both elevated >180 mg/dL - will tighten CHO ratio in anticipation of resuming diet post-op * AM fasting BSG above goal, however NPO this AM and also with notable AM hypoglycemia 07/30 AM after only 10 units of Lantus when she was NPO at that time as well. Will hold off adding basal insulin for now - may consider low dose later today or tomorrow AM if/when diet resumed. 07/31: * Sera received 14 units of insulin yesterday, all bolus. BSGs were: 32-631-831-154 mg/dL. * Fasting BSG was 117 mg/dL this AM, improved. * Patient was originally NPO for a pacemaker placement this AM but this has been moved until tomorrow so T2DM diet ordered until midnight. * Will continue without basal insulin at this time. May require a dose tomorrow after PPM placement once diet is ordered. * Tightened Novolog slighlty this morning. 07/30: * Patient received total of 17 units of insulin yesterday, of which 10 units were basal * Fasting BSG below goal range at 61 mg/dL - will hold basal insulin for now. Patient to be NPO at midnight. Per notes, patient given crackers this morning for lower BSG / no symptoms of hypoglycemia * Continue novolog for now 07/29: * 81 year old admitted with abnormal heart rhythm. NPO until cleared by cardiology. Pharmacy consulted for glycemic management. Patient managed on oral agents at home for diabetes * Patient received total of 21 units of insulin yesterday, of which 10 units were basal insulin * Fasting BSG 165 mg/dL - AM basal insulin held this morning, will resume for tonight and add scale in case diet started PLAN FOR INPATIENT GLYCEMIC CONTROL: * Hold outpatient oral diabetes medications * No basal insulin * Bolus insulin * NovoLog per scale ACHS or Q6hrs while NPO * Goal Range: Low 110 mg/dL - High 140 mg/dL * Correction Factor: 30 mg/dL/unit * Nutritional / Prandial insulin per carb ratio of 1 unit per 9 grams CHO consumed
[2022-08-01] MEDS ORDERED: Nursing to Pharmacy Communication SCH (11:45)
--- NOTE | 2022-08-01 11:52 | Cardiology Progress Note ---
Date of Service August 01, 2022 Assessment & Plan (1) AV heart block: (2) HTN (hypertension): Plan 81-year-old female without underlying cardiac disease but history of hypertension on beta-marito therapy who underwent routine surgery with left mastectomy and sentinel node biopsy today. Intraoperatively noted with heart rate of 50 2-1 AV block. Patient hemodynamically stable with no disruption in procedure. Due to persistent rhythm changes however patient was referred for in patient telemetry and monitoring. EKG and telemetry strips reviewed. 2-1 AV block present high-grade AV block may be present on 1 strip Plan: Admit to telemetry. Hold metoprolol succinate. Complete cardiac evaluation with echocardiogram If AV block remains persistent or progresses may warrant pacemaker insertion discussed with patient and family. Currently no acute hemodynamic compromise or suggestion of myocardial injury or ischemia Update 07/29/2022: Has remained in stable 2 1 AV block overnight Continues to be asymptomatic At this point the hope is that she will resume normal sinus rhythm with normal conduction once beta-marito has been washed out of her system, obviously, continue to hold metoprolol Continue to monitor on telemetry. Should she not achieve normal conduction then consideration for pacemaker placement next week Update 07/31/2022: Conduction has improved now with times of sinus rhythm and occasional winky block We will continue to monitor overnight to determine if pacemaker is necessary in the a.m. N.p.o. after midnight 08/01/22: For dual chamber placement tomorrow appreciate EP input npo after midnight Admission and Anticipated Discharge Date Admission Date: July 28, 2022 Subjective Pt seen and examined. Chart reviewed. Telemetry reviewed. Remains asymptomatic. Review of Systems Review of Systems: All systems reviewed & are unremarkable except as noted in HPI & below Physical Exam Physical Exam: General: Awake, alert and oriented x 3. No acute distress. HEENT: Normocephalic, atraumatic. Pupils equal, round and reactive to light and accommodation. Extraocular muscles are intact. Anicteric sclera. Moist mucous membranes. Neck: No JVD. No bruit. Cardiovascular: Regular but slow. Positive S-4. Normal S-1 and S-2. No S-3. 3/6 mid to late systolic ejection murmur, greatest at the right sternal border, second intercostal space with radiation to the bilateral carotids. No rubs. Pulmonary: Clear to auscultation bilaterally. No rales, rhonchi, or wheezing. Abdomen: Bowel sounds x 4, soft. No rebound, guarding or tenderness. No organomegaly. Extremities: No clubbing, cyanosis or edema. +2 pedal pulses bilaterally. Skin: Warm and dry. Results & Data Vital Signs (Past 12 Hours) Vital Signs Temp Pulse Pulse Resp BP Pulse Ox O2 Del Method 08/01/22 08:14 36.4 C L 57 L 16 151/72 H 94 Room Air 08/01/22 05:07 36.9 C 47 L 18 158/52 H 96 Room Air 08/01/22 00:00 74
[2022-08-01] MEDS ORDERED: INSULIN ASPART PER UNIT CHARGE SC SCH (12:00)
--- NOTE | 2022-08-01 12:43 | Electrocardiogram Report ---
Test Reason : Blood Pressure : / mmHG Vent. Rate : 049 BPM Atrial Rate : 049 BPM P-R Int : 162 ms QRS Dur : 080 ms QT Int : 432 ms P-R-T Axes : 052 -17 037 degrees QTc Int : 390 ms Normal sinus rhythm with 2:1 A-V conduction Minimal voltage criteria for LVH, may be normal variant Borderline ECG When compared with ECG of 31-JUL-2022 13:06, Nonspecific T wave abnormality no longer evident in Lateral leads Confirmed by Elijah Grissom ([id number]) on 08/01/2022 12:42:35 PM Referred By: REFERRED SELF Confirmed By:Elijah Grissom
--- NOTE | 2022-08-01 13:36 | Electrocardiogram Report ---
Test Reason : Blood Pressure : / mmHG Vent. Rate : 059 BPM Atrial Rate : 059 BPM P-R Int : 168 ms QRS Dur : 076 ms QT Int : 438 ms P-R-T Axes : 040 -18 028 degrees QTc Int : 433 ms Sinus bradycardia Blocked Premature atrial complexes Minimal voltage criteria for LVH, may be normal variant Borderline ECG When compared with ECG of 31-JUL-2022 15:09, (unconfirmed) 2:1 AV conduction no longer present Confirmed by Elijah Grissom ([id number]) on 08/01/2022 1:36:42 PM Referred By: REFERRED SELF Confirmed By:Elijah Grissom
--- NOTE | 2022-08-01 16:45 | Hospitalist Progress Note ---
Date of Service August 01, 2022 Assessment & Plan (1) AV heart block: (2) CLL (chronic lymphocytic leukemia): (3) HTN (hypertension): (4) S/P lumpectomy, left breast: (5) Hypomagnesemia: (6) Diabetes mellitus type 2 in nonobese: (7) Hypothyroidism: Plan 81-year-old female with PMH of abnormal annual mammogram, T2DM, HTN, HLD and hypothyroidism presented 07/28 from [facility] after being found to be in an abnormal heart rhythm in preop holding area just prior to partial lumpectomy with lymph node biopsy. She is being managed for the following: AV heart block: Noted to be an abnormal heart rhythm in preop holding just prior to partial lumpectomy and sentinel lymph node biopsy on 07/28/2022 at [facility]. Admitting tropes WNL, admitting EKG with 2 is to 1 AV block. ECHO w/ EF 60-65%, Gr I diastolic dysfunction. Patient takes metoprolol, amlodipine and losartan; metoprolol on hold. Cardiology on board, NPO midnight for pacer placement eval in AM. Can continue diet until midnight. External pacer pads placed while on PCU Patient asymptomatic with no chest pain. Continue with telemetry monitoring. Hypomagnesemia: 1.3 at presentation, monitor and replete. Goal of greater than 2.0. replaced today. CLL: Status post left lumpectomy Left axillary lymph node biopsy: Left partial mastectomy and sentinel lymph node biopsy completed 07/28 at [facility] Follows with Dr. Cruz Pain control with Tylenol and Tramadol PRN ice rotating at site of lumpectomy Diabetes mellitus type 2: Takes Glipizide and Metformin; DC while inpt Takes Trulicity; last dose on Sunday; hold while inpt FSBS ACHS SSI while inpatient HTN: Patient takes metoprolol, amlodipine and losartan; hold metoprolol secondary to AV block. Hypothyroidism: Takes levothyroxine; continue Disposition: PCP: Dr. Dahl CODE STATUS: Full code VTE prophylaxis: Hep sq, hold after today's pm dose Admission and Anticipated Discharge Date Admission Date: July 28, 2022 Subjective Patient seen and examined at bedside as a follow-up of atrial ventricular heart block, hypomagnesemia, status post left lumpectomy and left axillary lymph node biopsy. Patient was lying in bed, NAD, denies any new acute event overnight, reports no pain at left axilla where lumpectomy and biopsy was taken JERKER, clean dressing without soakage, denies headache or dizziness or chest pain or palpitation or belly pain, NPO midnight for pacer placement eval in AM. No plan for pacer today. Physical Exam Physical Exam: GENERAL: Alert and oriented x3. NAD, on RA. HEENT: No pallor, no icterus. Pupils equal, round and reactive to light. Oral mucosa moist. NECK: No JVD, no neck masses. HEART: S1 and S2 heard. Regular rate and rhythm. No murmur, no gallop. RESPIRATORY SYSTEM: Normal AP diameter. No accessory muscle use. No wheezing, no crackles. ABDOMEN: Soft, bowel sounds present, nontender, no distention. CENTRAL NERVOUS SYSTEM: No facial droop. Speech is clear. Obeys simple commands. Moves extremities. EXTREMITIES: No edema, no erythema seen. Lt Axilla w/ c/d/i dressing. No erythema or tenderness. Results & Data Results & Data Vital Signs (Past 12 Hours) Vital Signs Temp Pulse Resp BP Pulse Ox O2 Del Method 08/01/22 15:45 36.8 C 59 L 18 172/58 H 96 Room Air 08/01/22 12:00 36.8 C 50 L 18 128/82 97 Room Air 08/01/22 08:14 36.4 C L 57 L 16 151/72 H 94 Room Air 08/01/22 05:07 36.9 C 47 L 18 158/52 H 96 Room Air
[2022-08-01] MEDS ORDERED: HEPARIN SOD 5,000 UNIT/0.5 ML VIAL SQ SCH (21:00)
[2022-08-02] MEDS: ACETAMINOPHEN 325 MG TAB PO SCH ×3 (01:44→18:36)
[2022-08-02] MEDS ORDERED: WATER, STERILE FOR INJ 10 ML VIAL ONE (06:54)
[2022-08-02] MEDS ORDERED: VANCOMYCIN HCL 1000MG/20ML VIAL ONE (06:55)
[2022-08-02] MEDS ORDERED: BUPIVACAINE 0.25% PF 30 ML VIAL ONE (06:55)
[2022-08-02] MEDS ORDERED: Nursing to Pharmacy Communication SCH (07:00)
--- NOTE | 2022-08-02 07:42 | History & Physical Bridge Note ---
Date of Service August 02, 2022 History & Physical Bridge Note I have examined the patient, reviewed the History & Physical and in the interval since the performance of the History & Physical I have noted the following changes of clinical significance: no changes noted
--- NOTE | 2022-08-02 07:43 | Pre Anesthesia Assessment ---
Date of Service August 02, 2022 Pre Sedation Assessment Vital Signs Temp Pulse Pulse Resp BP Pulse Ox O2 Del Method 08/02/22 03:00 36.6 C 43 L 20 148/63 H 95 Room Air 08/02/22 00:00 50 L 08/01/22 23:28 36.6 C 46 L 18 147/69 H 95 Room Air 08/01/22 21:20 148/60 H 08/01/22 19:00 36.8 C 51 L 20 177/71 H 90 Room Air 08/01/22 19:13 50 L 08/01/22 19:09 61 08/01/22 15:45 36.8 C 59 L 18 172/58 H 96 Room Air 08/01/22 12:00 36.8 C 50 L 18 128/82 97 Room Air 08/01/22 08:14 36.4 C L 57 L 16 151/72 H 94 Room Air Cardiovascular + bradycardic Respiratory normal respiratory effort, lungs clear to auscultation Pre-Sedation Airway Assessment Smoking Status: Never smoker Hx Sleep Apnea: No Hx Difficult Intubation: No Short, Thick Neck: No Thyromental Distance: < 3.5 Finger Breadths Oral Cavity: + WNL Mallampati Class: II ASA: ASA3 NPO Status Date of Last Intake of Fluids: 08/01/22 Date of Last Intake of Solid Food: 08/01/22 Procedure Planning Contraindications for Sedation: none Current Medications Reviewed: Yes Notes The planned sedation has been discussed with the patient. Informed Consent was obtained. I have identified the patient, determined the appropriateness of sedation and have assessed the patient immediately prior to the procedure. All medicine(s) and interventions are by my order.
[2022-08-02] MEDS ORDERED: MIDAZOLAM HCL 5 MG/ML 1 ML VIAL ONE (07:52)
[2022-08-02] MEDS ORDERED: fentaNYL citrate PF 100 MCG/2 ML VIAL ONE (07:53)
[2022-08-02] MEDS ORDERED: LANTUS PER UNIT CHARGE SQ ONE ×2 (09:00→11:15)
--- NOTE | 2022-08-02 09:03 | Pharmacy Report ---
Pharmacy Glycemic Short Note 2 - Date of Service August 02, 2022 - Glycemic Short BSG Results (Last 24 hours): 08/01/22 08/01/22 08/01/22 11:37 16:21 20:41 POC Glucose 177 H 234 H 183 H 08/02/22 07:24 POC Glucose 199 H OUTPATIENT ANTIDIABETIC REGIMEN: * Metformin ER 1000 mg PO BIDM * Januvia 100 mg PO daily * Glimepiride 2 mg PO BIDM * Invokana 100 mg PO daily * HbA1c: 8.5% (07/28/22) ASSESSMENT: 08/02: * Pacemaker not placed yesterday. Patient ordered a diet in the afternoon and consumed significant CHO with lunch, dinner. Now NPO again for possible pacemaker today * Post-prandial BSG's yesterday elevated - will tighten CHO ratio * AM fasting BSG still increasing despite resuming Lantus yesterday, although at low dose. Will increase Lantus slightly today, but not too aggressively as patient is NPO for now and also with notable AM hypoglycemia 07/30 AM after only 10 units of Lantus when she was NPO at that time as well. 08/01: * NPO for anticipated pacemaker placement today * Post-prandial BSG's yesterday both elevated >180 mg/dL - will tighten CHO ratio in anticipation of resuming diet post-op * AM fasting BSG above goal, however NPO this AM and also with notable AM hypoglycemia 07/30 AM after only 10 units of Lantus when she was NPO at that time as well. Will hold off adding basal insulin for now - may consider low dose later today or tomorrow AM if/when diet resumed. 07/31: * Sera received 14 units of insulin yesterday, all bolus. BSGs were: 78-602-443-154 mg/dL. * Fasting BSG was 117 mg/dL this AM, improved. * Patient was originally NPO for a pacemaker placement this AM but this has been moved until tomorrow so T2DM diet ordered until midnight. * Will continue without basal insulin at this time. May require a dose tomorrow after PPM placement once diet is ordered. * Tightened Novolog slighlty this morning. 07/30: * Patient received total of 17 units of insulin yesterday, of which 10 units were basal * Fasting BSG below goal range at 61 mg/dL - will hold basal insulin for now. Patient to be NPO at midnight. Per notes, patient given crackers this morning for lower BSG / no symptoms of hypoglycemia * Continue novolog for now 07/29: * 81 year old admitted with abnormal heart rhythm. NPO until cleared by cardiology. Pharmacy consulted for glycemic management. Patient managed on oral agents at home for diabetes * Patient received total of 21 units of insulin yesterday, of which 10 units were basal insulin * Fasting BSG 165 mg/dL - AM basal insulin held this morning, will resume for tonight and add scale in case diet started PLAN FOR INPATIENT GLYCEMIC CONTROL: * Hold outpatient oral diabetes medications * Lantus 8 units SC x1 now * Bolus insulin * NovoLog per scale ACHS or Q6hrs while NPO * Goal Range: Low 110 mg/dL - High 140 mg/dL * Correction Factor: 30 mg/dL/unit * Nutritional / Prandial insulin per carb ratio of 1 unit per 8 grams CHO consumed
[2022-08-02] MEDS: ASPIRIN 81 MG CHEW PO SCH (09:20)
[2022-08-02 09:35] LABS: Calcium 9.6 mg/dl (8.6-10.3); Magnesium 1.8 mg/dl (1.7-2.4); Potassium 4.5 mmol/L (3.5-5.1)
[2022-08-02 09:40] LABS: BUN Creatinine Ratio 17.8 (10-20); Creatinine Clr Calc Pharmacy 39.9 ml/min; Est GFR (Non-African American) 60.4 ml/min
--- NOTE | 2022-08-02 09:43 | Post Anesthesia Assessment ---
Date of Service August 02, 2022 Post Sedation Assessment Vital Signs Temp Pulse Pulse Resp BP Pulse Ox O2 Del Method 08/02/22 07:48 47 L 16 204/66 H 99 Room Air 08/02/22 03:00 36.6 C 43 L 20 148/63 H 95 Room Air 08/02/22 00:00 50 L 08/01/22 23:28 36.6 C 46 L 18 147/69 H 95 Room Air 08/01/22 21:20 148/60 H 08/01/22 19:00 36.8 C 51 L 20 177/71 H 90 Room Air 08/01/22 19:13 50 L 08/01/22 19:09 61 08/01/22 15:45 36.8 C 59 L 18 172/58 H 96 Room Air 08/01/22 12:00 36.8 C 50 L 18 128/82 97 Room Air Recovery Score Activity: Moves 4 extremities Respiration: Deep Breath/Cough Circulation: +/-20% PreAnes Value Consciousness: Fully Awake Oxygen Saturation: > 92% On Room Air Discharge Sedation Level of Care: Fast Track Phase II Post Sedation Plan On clinical assessment, the patient appears to have tolerated the sedation without complications. Patient is recovering as anticipated. Patient will continue to be monitored by nursing and may be discharged when sedation discharge criteria are met per below protocol. Upon Completions of procedure up to 15 minutes continue every 5 minute vital signs and the P.A.R. score; then discharge to a Phase I or Fast Track to Phase II per the following guidelines: * Discharge Patient to appropriate Phase II area if PAR is 8 or greater or return to pre- procedure baseline. The post - procedure orders will be as directed. * If PAR score is less than 8 or not return to pre-procedure baseline then patient will follow Phase I monitoring till PAR is reached for Phase II. The Phase I may be done in procedure room or may call to secure a Phase I area. * If naloxone or flumazenil are used for reversal, hold in Phase I for continued monitoring from when last reversal dose was given for a minimum of 60 minutes or longer pending the nurse and/or physician discretion of patient condition before discharge to Phase II. Please call the Sedation Physician to re-evaluate and complete post-note for discharge to Phase II area. Do NOT discharge from procedure sedation or Phase 1 until post- sedation evaluation note is complete by procedure /sedation MD Sedation Discharge Instructions to be given to the patient at discharge to home.
--- NOTE | 2022-08-02 09:44 | Operative Report ---
Post Operative Report Pre & Post Diagnosis CHB Operation Date: 08/02/22 08:00 <No data on this case meets the specified criteria> I identified the patient and participated in the time-out.: Yes Procedure Operation Date: 08/02/22 08:00 Actual Procedures p Pacer with A/V Leads (Dual) - Kimmy López DO peripheral venogram Surgeon Kimmy López, DO Machining Engineer none Estimated Blood Loss 40 Findings Consistent with Post-Op Diagnosis Specimens none Description of Procedure see official report I attest to the content of the Intraoperative Record and any orders documented therein. Any exceptions are noted below.
[2022-08-02] MEDS: METOPROLOL SUCC 25MG EXT REL TAB PO SCH (10:34)
[2022-08-02] MEDS: INSULIN ASPART PER UNIT CHARGE SC SCH ×5 (11:00→21:15)
[2022-08-02] MEDS: LEVOTHYROXINE SODIUM 50 MCG TABLET PO SCH (11:58)
[2022-08-02] MEDS: PANTOprazole 40 MG TAB PO SCH (11:58)
[2022-08-02] MEDS: LOSARTAN POTASSIUM 50 MG TAB PO SCH (11:58)
[2022-08-02] MEDS: amLODIPine BESYLATE 5 MG TAB PO SCH (11:58)
[2022-08-02] MEDS: PRAVASTATIN SOD 40 MG TAB PO SCH (11:59)
[2022-08-02] MEDS ORDERED: INSULIN ASPART PER UNIT CHARGE SC SCH (12:00)
[2022-08-02] MEDS ORDERED: CLINDAMYCIN/D5W 600 MG/50 ML BAG IV SCH (12:00)
--- NOTE | 2022-08-02 12:53 | Hospitalist Progress Note ---
Date of Service August 02, 2022 Assessment & Plan (1) AV heart block: (2) CLL (chronic lymphocytic leukemia): (3) HTN (hypertension): (4) S/P lumpectomy, left breast: (5) Hypomagnesemia: (6) Diabetes mellitus type 2 in nonobese: (7) Hypothyroidism: Plan 81-year-old female with PMH of abnormal annual mammogram, T2DM, HTN, HLD and hypothyroidism presented 07/28 from [facility] after being found to be in an abnormal heart rhythm in preop holding area just prior to partial lumpectomy with lymph node biopsy. She is being managed for the following: AV heart block status post permanent pacemaker placement on 08/02. Noted to be an abnormal heart rhythm in preop holding just prior to partial lumpectomy and sentinel lymph node biopsy on 07/28/2022 at [facility]. Admitting tropes WNL, admitting EKG with 2 is to 1 AV block. ECHO w/ EF 60-65%, Gr I diastolic dysfunction. Pacemaker placed by cardiology EP on 08/02 Continue to monitor on telemetry overnight. PT OT evaluation. CLL: Status post left lumpectomy Left axillary lymph node biopsy: Left partial mastectomy and sentinel lymph node biopsy completed 07/28 at [facility] Follows with Dr. Cruz Pain control with Tylenol and Tramadol PRN ice rotating at site of lumpectomy Diabetes mellitus type 2: Takes Glipizide and Metformin; DC while inpt Takes Trulicity; last dose on Sunday; hold while inpt FSBS ACHS SSI while inpatient HTN: Patient takes metoprolol, amlodipine and losartan. Metoprolol restarted by cardiology EP Hypothyroidism: Takes levothyroxine; continue Disposition: PCP: Dr. Dahl CODE STATUS: Full code VTE prophylaxis: SCDs. Dispofrom home; will obtain PT OT evaluation. Likely discharge back home with her daughter. Admission and Anticipated Discharge Date Admission Date: July 28, 2022 Subjective Patient seen and examined at bedside after the procedure. She is slightly drowsy but easily awakened by voice. Denies dizziness, chest pain or shortness of breath. Review of Systems Review of Systems: All systems reviewed & are unremarkable except as noted in Subjective Physical Exam Physical Exam: GENERAL: Alert and oriented x3. NAD, on RA. HEENT: No pallor, no icterus. Pupils equal, round and reactive to light. Oral mucosa moist. NECK: No JVD, no neck masses. Chestdressing clean dry and intact over the pacemaker site. HEART: S1 and S2 heard. Regular rate and rhythm. No murmur, no gallop. RESPIRATORY SYSTEM: Normal AP diameter. No accessory muscle use. No wheezing, no crackles. ABDOMEN: Soft, bowel sounds present, nontender, no distention. CENTRAL NERVOUS SYSTEM: No facial droop. Speech is clear. Obeys simple commands. Moves extremities. EXTREMITIES: No edema, no erythema seen. Lt Axilla w/ c/d/i dressing. No erythema or tenderness. Results & Data Results & Data Vital Signs (Past 12 Hours) Vital Signs Temp Pulse Resp BP Pulse Ox O2 Del Method O2 Flow Rate 08/02/22 10:28 Nasal Cannula 1.5 08/02/22 12:09 36.6 C 69 17 122/74 95 Nasal Cannula 1.5 08/02/22 11:35 36.3 C L 77 115/76 08/02/22 11:29 36.3 C L 71 15 92/61 L 98 Nasal Cannula 1.5 08/02/22 10:59 36.4 C L 18 111/76 97 Nasal Cannula 1.5 08/02/22 10:45 36.4 C L 82 17 143/71 H 96 Nasal Cannula 1.5 08/02/22 10:28 36.6 C 72 19 147/82 H 95 Nasal Cannula 1.5 08/02/22 10:10 87 18 138/97 92 Room Air 08/02/22 09:55 90 18 133/93 92 Room Air 08/02/22 07:48 47 L 16 204/66 H 99 Room Air 08/02/22 03:00 36.6 C 43 L 20 148/63 H 95 Room Air
--- NOTE | 2022-08-02 13:45 | Electrocardiogram Report ---
Test Reason : Blood Pressure : / mmHG Vent. Rate : 046 BPM Atrial Rate : 043 BPM P-R Int : 000 ms QRS Dur : 098 ms QT Int : 472 ms P-R-T Axes : 053 -20 059 degrees QTc Int : 413 ms Sinus bradycardia with complete heart block with junctional escape Minimal voltage criteria for LVH, may be normal variant Anterolateral infarct , age undetermined Abnormal ECG When compared with ECG of 01-AUG-2022 05:20, Significant changes have occurred Confirmed by Elijah Grissom ([id number]) on 08/02/2022 1:45:09 PM Referred By: REFERRED SELF Confirmed By:Elijah Grissom
--- NOTE | 2022-08-02 13:56 | Electrocardiogram Report ---
Test Reason : Blood Pressure : / mmHG Vent. Rate : 069 BPM Atrial Rate : 069 BPM P-R Int : 128 ms QRS Dur : 126 ms QT Int : 452 ms P-R-T Axes : 041 134 -22 degrees QTc Int : 484 ms Atrial-sensed ventricular-paced rhythm Abnormal ECG When compared with ECG of 02-AUG-2022 04:12, (unconfirmed) Previous ECG has undetermined rhythm, needs review Confirmed by Elijah Grissom ([id number]) on 08/02/2022 1:55:54 PM Referred By: REFERRED SELF Confirmed By:Elijah Grissom
--- NOTE | 2022-08-02 16:27 | Cardiology Progress Note ---
Date of Service August 02, 2022 Assessment & Plan (1) AV heart block: (2) HTN (hypertension): Plan 81-year-old female without underlying cardiac disease but history of hypertension on beta-marito therapy who underwent routine surgery with left mastectomy and sentinel node biopsy today. Intraoperatively noted with heart rate of 50 2-1 AV block. Patient hemodynamically stable with no disruption in procedure. Due to persistent rhythm changes however patient was referred for in patient telemetry and monitoring. EKG and telemetry strips reviewed. 2-1 AV block present high-grade AV block may be present on 1 strip Plan: Admit to telemetry. Hold metoprolol succinate. Complete cardiac evaluation with echocardiogram If AV block remains persistent or progresses may warrant pacemaker insertion discussed with patient and family. Currently no acute hemodynamic compromise or suggestion of myocardial injury or ischemia Update 07/29/2022: Has remained in stable 2 1 AV block overnight Continues to be asymptomatic At this point the hope is that she will resume normal sinus rhythm with normal conduction once beta-marito has been washed out of her system, obviously, continue to hold metoprolol Continue to monitor on telemetry. Should she not achieve normal conduction then consideration for pacemaker placement next week Update 07/31/2022: Conduction has improved now with times of sinus rhythm and occasional winky block We will continue to monitor overnight to determine if pacemaker is necessary in the a.m. N.p.o. after midnight 08/01/22: For dual chamber placement tomorrow appreciate EP input npo after midnight 08/02/22: s/p PPM placement tolerated well device position and function confirmed ok to d/c to home from cardiac standpoint but would recommend PT eval prior to discharge metoprolol started device clinic will call to arrange pocket check Admission and Anticipated Discharge Date Admission Date: July 28, 2022 Subjective Pt seen and examined. Chart reviewed. Tele reviewed. Tolerated procedure well. Review of Systems Review of Systems: All systems reviewed & are unremarkable except as noted in HPI & below Physical Exam Physical Exam: General: Awake, alert and oriented x 3. No acute distress. HEENT: Normocephalic, atraumatic. Pupils equal, round and reactive to light and accommodation. Extraocular muscles are intact. Anicteric sclera. Moist mucous membranes. Neck: No JVD. No bruit. Cardiovascular: Regular but slow. Positive S-4. Normal S-1 and S-2. No S-3. 3/6 mid to late systolic ejection murmur, greatest at the right sternal border, second intercostal space with radiation to the bilateral carotids. No rubs. Pulmonary: Clear to auscultation bilaterally. No rales, rhonchi, or wheezing. Abdomen: Bowel sounds x 4, soft. No rebound, guarding or tenderness. No organomegaly. Extremities: No clubbing, cyanosis or edema. +2 pedal pulses bilaterally. Skin: Warm and dry. Results & Data Vital Signs (Past 12 Hours) Vital Signs Temp Pulse Pulse Resp BP Pulse Ox O2 Del Method 08/02/22 16:06 36.6 C 64 19 129/69 97 Nasal Cannula 08/02/22 15:39 36.6 C 65 20 131/67 96 Nasal Cannula 08/02/22 13:27 36.8 C 73 16 107/68 96 Nasal Cannula 08/02/22 10:28 Nasal Cannula 08/02/22 12:09 36.6 C 69 17 122/74 95 Nasal Cannula 08/02/22 11:35 36.3 C L 77 115/76 08/02/22 11:29 36.3 C L 71 15 92/61 L 98 Nasal Cannula 08/02/22 10:59 36.4 C L 18 111/76 97 Nasal Cannula 08/02/22 10:45 36.4 C L 82 17 143/71 H 96 Nasal Cannula 08/02/22 10:28 36.6 C 72 19 147/82 H 95 Nasal Cannula 08/02/22 10:10 87 18 138/97 92 Room Air 08/02/22 09:55 90 18 133/93 92 Room Air 08/02/22 07:48 47 L 16 204/66 H 99 Room Air O2 Flow Rate 08/02/22 16:06 1.5 08/02/22 15:39 08/02/22 13:27 1.5 08/02/22 10:28 1.5 08/02/22 12:09 1.5 08/02/22 11:35 08/02/22 11:29 1.5 08/02/22 10:59 1.5 08/02/22 10:45 1.5 08/02/22 10:28 1.5 08/02/22 10:10 08/02/22 09:55 08/02/22 07:48
[2022-08-02] MEDS: MAGNESIUM OXIDE 400 MG TAB PO SCH ×2 (17:05→21:15)
[2022-08-03] MEDS: ACETAMINOPHEN 325 MG TAB PO SCH ×2 (03:30→10:24)
[2022-08-03 06:25] LABS: Hematocrit (blood only) 39.6 % (37.0-47.0); Hemoglobin 13.4 g/dl (12.0-16.0); Mean Corpuscular Hemoglobin 28.9 pg (25.0-34.0); Mean Corpuscular Hgb Conc 33.8 g/dL (32.0-36.0); Mean Corpuscular Volume 85.3 fL (80.0-100.0); Mean Platelet Volume 10.9 fL (9.4-12.4); Platelet Count 172 K/uL (130-400); RDW Coefficient of Variation 13.7 % (11.5-14.5); RDW Standard Deviation 42.6 fL (36.4-46.3); Red Blood Count 4.64 M/uL (4.20-5.40); White Blood Count 12.52 K/ul (4.8-10.8)
[2022-08-03 06:47] LABS: Albumin Globulin Ratio 1.1 (0.9-2); Albumin Level 3.3 gm/dl (3.4-5.0); BUN Creatinine Ratio 22.1 (10-20); Bilirubin,Total 0.5 mg/dl (0.2-1.0); Calcium 9.3 mg/dl (8.6-10.3); Creatinine Clr Calc Pharmacy 41.5 ml/min; Est GFR (African American) 73.9 ml/min; Est GFR (Non-African American) 63.8 ml/min; Globulin 3.1 gm/dl (2.5-4.0); Potassium 4.4 mmol/L (3.5-5.1); Total Protein 6.4 gm/dl (6.0-8.3)
[2022-08-03 06:59] LABS: Basophils # (auto) 0.03 K/uL (0-0.2); Basophils % (auto) 0.2 %; Eosinophils # (auto) 0.36 K/uL (0-0.50); Eosinophils % (auto) 2.9 %; Immature Granulocytes # (auto) 0.04 K/uL (0.01-0.20); Immature Granulocytes % (auto) 0.3 %; Lymphocytes # (auto) 5.33 K/uL (1.2-3.4); Lymphocytes % (auto) 42.6 %; Monocytes # (auto) 0.86 K/uL (0.11-0.59); Monocytes % (auto) 6.9 %; Neutrophils % (auto) 47.1 %
[2022-08-03] MEDS ORDERED: LANTUS PER UNIT CHARGE SQ ONE (07:45)
[2022-08-03] MEDS: INSULIN ASPART PER UNIT CHARGE SC SCH (08:24)
[2022-08-03] MEDS: LOSARTAN POTASSIUM 50 MG TAB PO SCH (08:25)
[2022-08-03] MEDS: METOPROLOL SUCC 25MG EXT REL TAB PO SCH (08:25)
[2022-08-03] MEDS: PANTOprazole 40 MG TAB PO SCH (08:25)
[2022-08-03] MEDS: LEVOTHYROXINE SODIUM 50 MCG TABLET PO SCH (08:25)
[2022-08-03] MEDS: ASPIRIN 81 MG CHEW PO SCH (08:26)
[2022-08-03] MEDS: PRAVASTATIN SOD 40 MG TAB PO SCH (08:26)
[2022-08-03] MEDS: amLODIPine BESYLATE 5 MG TAB PO SCH (08:26)
[2022-08-03] MEDS: MAGNESIUM OXIDE 400 MG TAB PO SCH (08:27)
--- NOTE | 2022-08-03 10:01 | Pharmacy Report ---
Pharmacy Glycemic Short Note 2 - Date of Service August 03, 2022 - Glycemic Short BSG Results (Last 24 hours): 08/02/22 08/02/22 08/02/22 10:44 10:47 15:11 Glucose POC Glucose 234 H 242 H 167 H 08/02/22 08/02/22 08/03/22 16:13 21:08 06:04 Glucose 183 H POC Glucose 188 H 153 H 08/03/22 07:42 Glucose POC Glucose 178 H OUTPATIENT ANTIDIABETIC REGIMEN: * Metformin ER 1000 mg PO BIDM * Januvia 100 mg PO daily * Glimepiride 2 mg PO BIDM * Invokana 100 mg PO daily * HbA1c: 8.5% (07/28/22) ASSESSMENT: 08/03: * Diet resumed yesterday post-op. * BSG elevation to 242 mg/dL at lunchtime likely 2nd missed Novolog correctional dose in AM and also surgical stress. * Other BSG's later in the day all <180 mg/dL except a 2nd BSG at dinner time which was ~1 hour after prior CHO/PO intake. No change to Novolog. * AM fasting BSG elevated again today. However, Lantus is not yet at steady state and AM hypoglycemia 07/30 AM after Lantus 10 units HS x2 doses. Will hold off increasing further today. Will consider increasing tomorrow if AM fasting BSG remains elevated. 08/02: * Pacemaker not placed yesterday. Patient ordered a diet in the afternoon and consumed significant CHO with lunch, dinner. Now NPO again for possible pacemaker today * Post-prandial BSG's yesterday elevated - will tighten CHO ratio * AM fasting BSG still increasing despite resuming Lantus yesterday, although at low dose. Will increase Lantus slightly today, but not too aggressively as patient is NPO for now and also with notable AM hypoglycemia 07/30 AM after only 10 units of Lantus when she was NPO at that time as well. 08/01: * NPO for anticipated pacemaker placement today * Post-prandial BSG's yesterday both elevated >180 mg/dL - will tighten CHO ratio in anticipation of resuming diet post-op * AM fasting BSG above goal, however NPO this AM and also with notable AM hypoglycemia 07/30 AM after only 10 units of Lantus when she was NPO at that time as well. Will hold off adding basal insulin for now - may consider low dose later today or tomorrow AM if/when diet resumed. 07/31: * Sera received 14 units of insulin yesterday, all bolus. BSGs were: 65-981-317-154 mg/dL. * Fasting BSG was 117 mg/dL this AM, improved. * Patient was originally NPO for a pacemaker placement this AM but this has been moved until tomorrow so T2DM diet ordered until midnight. * Will continue without basal insulin at this time. May require a dose tomorrow after PPM placement once diet is ordered. * Tightened Novolog slighlty this morning. 07/30: * Patient received total of 17 units of insulin yesterday, of which 10 units were basal * Fasting BSG below goal range at 61 mg/dL - will hold basal insulin for now. Patient to be NPO at midnight. Per notes, patient given crackers this morning for lower BSG / no symptoms of hypoglycemia * Continue novolog for now 07/29: * 81 year old admitted with abnormal heart rhythm. NPO until cleared by cardiology. Pharmacy consulted for glycemic management. Patient managed on oral agents at home for diabetes * Patient received total of 21 units of insulin yesterday, of which 10 units were basal insulin * Fasting BSG 165 mg/dL - AM basal insulin held this morning, will resume for tonight and add scale in case diet started PLAN FOR INPATIENT GLYCEMIC CONTROL: * Hold outpatient oral diabetes medications * Lantus 8 units SC x1 now * Bolus insulin * NovoLog per scale ACHS or Q6hrs while NPO * Goal Range: Low 110 mg/dL - High 140 mg/dL * Correction Factor: 30 mg/dL/unit * Nutritional / Prandial insulin per carb ratio of 1 unit per 8 grams CHO consumed
--- NOTE | 2022-08-03 12:04 | Cardiology Progress Note ---
Date of Service August 03, 2022 Assessment & Plan (1) AV heart block: (2) HTN (hypertension): Plan 81-year-old female without underlying cardiac disease but history of hypertension on beta-marito therapy who underwent routine surgery with left mastectomy and sentinel node biopsy today. Intraoperatively noted with heart rate of 50 2-1 AV block. Patient hemodynamically stable with no disruption in procedure. Due to persistent rhythm changes however patient was referred for in patient telemetry and monitoring. EKG and telemetry strips reviewed. 2-1 AV block present high-grade AV block may be present on 1 strip Plan: Admit to telemetry. Hold metoprolol succinate. Complete cardiac evaluation with echocardiogram If AV block remains persistent or progresses may warrant pacemaker insertion discussed with patient and family. Currently no acute hemodynamic compromise or suggestion of myocardial injury or ischemia Update 07/29/2022: Has remained in stable 2 1 AV block overnight Continues to be asymptomatic At this point the hope is that she will resume normal sinus rhythm with normal conduction once beta-marito has been washed out of her system, obviously, continue to hold metoprolol Continue to monitor on telemetry. Should she not achieve normal conduction then consideration for pacemaker placement next week Update 07/31/2022: Conduction has improved now with times of sinus rhythm and occasional winky block We will continue to monitor overnight to determine if pacemaker is necessary in the a.m. N.p.o. after midnight 08/01/22: For dual chamber placement tomorrow appreciate EP input npo after midnight 08/02/22: s/p PPM placement tolerated well device position and function confirmed ok to d/c to home from cardiac standpoint but would recommend PT eval prior to discharge metoprolol started device clinic will call to arrange pocket check 08/03/22: no complaints ambulating well ok for discharge Admission and Anticipated Discharge Date Admission Date: July 28, 2022 Subjective Pt seen and examined. Chart reviewed. Tele reviewed. Anxious for discharge. Review of Systems Review of Systems: All systems reviewed & are unremarkable except as noted in HPI & below Physical Exam Physical Exam: General: Awake, alert and oriented x 3. No acute distress. HEENT: Normocephalic, atraumatic. Pupils equal, round and reactive to light and accommodation. Extraocular muscles are intact. Anicteric sclera. Moist mucous membranes. Neck: No JVD. No bruit. Cardiovascular: Regular but slow. Positive S-4. Normal S-1 and S-2. No S-3. 3/6 mid to late systolic ejection murmur, greatest at the right sternal border, second intercostal space with radiation to the bilateral carotids. No rubs. Pulmonary: Clear to auscultation bilaterally. No rales, rhonchi, or wheezing. Abdomen: Bowel sounds x 4, soft. No rebound, guarding or tenderness. No organomegaly. Extremities: No clubbing, cyanosis or edema. +2 pedal pulses bilaterally. Skin: Warm and dry. Results & Data Vital Signs (Past 12 Hours) Vital Signs Temp Pulse Pulse Pulse Resp BP Pulse Ox 08/03/22 11:24 37.0 C 79 17 119/58 L 94 08/03/22 10:22 37.0 C 73 75 18 132/78 91 08/03/22 10:19 80 08/03/22 08:25 37.0 C 75 18 132/78 91 08/03/22 08:17 37.0 C 75 18 132/78 91 08/03/22 03:00 37.1 C 84 18 152/80 H 96 O2 Del Method 08/03/22 11:24 Room Air 08/03/22 10:22 08/03/22 10:19 08/03/22 08:25 Room Air 08/03/22 08:17 Room Air 08/03/22 03:00 Room Air
--- NOTE | 2022-08-03 12:50 | Discharge Summary ---
Date of Service August 03, 2022 Admission HPI Per Admitting Provider Sera Plata is an 81-year-old female that presented to the [facility] ED via EMS from [facility] outpatient surgery center where she underwent a left lumpectomy and lymph node biopsy today. On EKG at [facility] she was noted to be bradycardic with second-degree AVB and a heart rate 48. While at [facility], [place] anesthesia did reach out to Dr. Burnette with cardiology who reviewed her recent EKG that was performed at the beginning of July preoperatively which indicated normal sinus rhythm. During this encounter the patient did not exhibit any cardiac symptoms and was hemodynamical ly stable. Patient does not have a cardiac history. PMH includes CLL ()followed by Dr. Helms, 0.5 cm lump diagnosed by annual mammogram, type 2 diabetes mellitus, HTN, HLD, and hypothyroidism. At baseline patient does take metoprolol, losartan and amlodipine for HTN management. Patient denies any syncope type symptoms at home and reports taking her medications routinely and consistently. When I met with the patient her son and daughter were at the bedside. Patient was AAOx4 and able to answer all questions appropriately. Patient lives alone at home and uses a cane intermittently to ambulate. Patient denies headache, dizziness, shortness of breath, chest pain, palpitations, N/V/D, recent falls or trauma, or swelling. Patient is sitting in her hospital bed in no apparent distress. Patient does have small dressing over left lateral breast status post lumpectomy today. Patient denies tobacco use, alcohol use or recreational drug use. Patient was evaluated by Dr. Jerry in the ED who indicated to hold all antihypertensive medications concern, obtain echocardiogram and keep patient n.p.o. after midnight. Cardiology will evaluate in the morning and have further conversation regarding if pacemaker placement is necessary or recommended. Patient will be admitted for further evaluation and management. Please see A/P for further details. Admission Exam Per Admitting Provider Neuro: AAOx4, PERRLA, no aphagia, memory changes, CNII-XII grossly intact HEENT: head normocephalic, moist mucus membranes CV: S1/S2, (-) M/G/R, (-) edema, cap refill < 3 seconds Resp: Lungs CTA in all mcginnis. On RA GI: Abdomen S/NT/ND, Ax4 bowel sounds, (-) CVA tenderness Musculoskeletal: 5/5 B/L UE strength, 5/5 B/L LE strength. No gait disturbance Skin: (-) rashes , (-) erythema. Psych: euthymic mood Principal Diagnosis AV heart block status post permanent pacemaker placement on 08/02. Discharge Exam GENERAL: Alert and oriented x3. NAD, on RA. HEENT: No pallor, no icterus. Pupils equal, round and reactive to light. Oral mucosa moist. NECK: No JVD, no neck masses. Chestdressing clean dry and intact over the pacemaker site. HEART: S1 and S2 heard. Regular rate and rhythm. No murmur, no gallop. RESPIRATORY SYSTEM: Normal AP diameter. No accessory muscle use. No wheezing, no crackles. ABDOMEN: Soft, bowel sounds present, nontender, no distention. CENTRAL NERVOUS SYSTEM: No facial droop. Speech is clear. Obeys simple commands. Moves extremities. EXTREMITIES: No edema, no erythema seen. Lt Axilla w/ c/d/i dressing. No erythema or tenderness. Discharge Data Allergies Allergy/AdvReac Type Severity Reaction Status Date / Time erythromycin base Allergy Unknown gi upset Verified 07/28/22 16:25 Penicillins Allergy Unknown hives, rash Verified 07/28/22 16:25 Sulfa (Sulfonamide AdvReac upset Verified 07/28/22 16:25 Antibiotics) stomach Consultations 07/28/22 15:19 Consult Cardiology Stat 07/28/22 16:33 ED Decision to Admit Stat Procedures Performed Operation Date: 08/02/22 08:00 Actual Procedures p Pacer with A/V Leads (Dual) - Kimmy López DO s Venogram, Unilateral - Kimmy López DO Ordered Studies 08/02/22 07:00 EP Lab Images for PACS ONCE Hospital Course (1) AV heart block: (2) CLL (chronic lymphocytic leukemia): (3) HTN (hypertension): (4) S/P lumpectomy, left breast: (5) Hypomagnesemia: (6) Diabetes mellitus type 2 in nonobese: (7) Hypothyroidism: Plan 81-year-old female with PMH of abnormal annual mammogram, T2DM, HTN, HLD and hypothyroidism presented 07/28 from [facility] after being found to be in an abnormal heart rhythm in preop holding area just prior to partial lumpectomy with lymph node biopsy. She was admitted to telemetry floor and managed for following condition. AV heart block status post permanent pacemaker placement on 08/02. Noted to be an abnormal heart rhythm in preop holding just prior to partial lumpectomy and sentinel lymph node biopsy on 07/28/2022 at [facility]. Admitting tropes WNL, admitting EKG with 2 is to 1 AV block. ECHO w/ EF 60-65%, Gr I diastolic dysfunction. Pacemaker placed by cardiology EP on 08/02 PT OT evaluation done; patient discharged home with her daughter. Primary care follow-up was set up. Patient to follow-up with pacer clinic in 1 week. Atenolol was stopped at discharge. Patient was prescribed amlodipine for high blood pressure. CLL: Status post left lumpectomy Left axillary lymph node biopsy: Follows with Dr. Cruz Pain control with Tylenol and Tramadol PRN Diabetes mellitus type 2: Takes Glipizide and Metformin; Takes Trulicity; Resume at discharge. HTN: Amlodipine, metoprolol and losartan resumed at DC. Hypothyroidism: Continue home dose of levothyroxine. Total Time Total Time Spent Total Time Spent (In Minutes): 35 Total Time Includes: Examination of the Patient, Discharge Planning, Medication Reconciliation, Communication With Other Providers and Other Discharge Plan Discharge Items Patient Disposition: Home - Self-Care Reason For Visit: BRADYCARDIA/AVB Discharge Diagnosis: AV heart block status post permanent pacemaker placement on 08/02 Activity: As commented below Activity Comment: do not raise the left elbow over the left shoulder for 1 month Lifting: No more than 10 pounds Lifting Comment: do not lift more than 10 pounds with the left arm for 2 weeks Bathing: Keep incision dry Bathing Comment: keep dressing on & dry until wound check next week Non-emergency contact: [employer] Puller Call non-emergency contact if: you have any medication questions Follow-up/Referrals: Annabella Victoria DO [Primary Care Provider] - (Date & Time 08/08/2022 2:00 PM Provider Jennifer Knutson DO Department [facility] ) Kimmy López DO [Physician] - (The cardiology office will call you with an appointment.) Diet: Regular Addtl Attending Provider Instructions: You were admitted to the hospital with heart block. Pacemaker was placed on 08/02/2022 by the curriculum coordinator. The cardiology office will call you for follow- up for device and wound check at [facility] cardiology next week. Please stop taking atenolol. You have a follow-up set up with your primary care doctor for July 08, 2022. Pending Studies at Discharge: No Stand-Alone Forms: My [facility], Smoking Cessation Medications and DC Order Prescriptions: Continued canagliflozin 100 mg tablet 100 mg PO DAILY metoprolol succinate [Toprol XL] 25 mg tablet extended release 24 hr 25 mg PO DAILY nystatin-triamcinolone 100,000-0.1 unit/g-% cream 1 appln TOP BID Qty: 30 0RF Rx Instructions: Apply to affected area up to twice per day. fluconazole [Diflucan] 150 mg tablet 150 mg PO Q3D 0 Days Qty: 2 2RF Rx Instructions: Take tablet today, then repeat in 3 days. aspirin 81 mg tablet,chewable 81 mg PO DAILY glimepiride 2 mg tablet 2 mg PO BID levothyroxine 50 mcg tablet 50 mcg PO DAILY loratadine [Allergy Relief (loratadine)] 10 mg tablet 10 mg PO DAILY losartan 100 mg tablet 100 mg PO DAILY metformin 500 mg tablet extended release 24 hr 1,000 mg PO BID omeprazole 20 mg tablet,delayed release (DR/EC) 20 mg PO DAILY pravastatin 40 mg tablet 40 mg PO DAILY sitagliptin phosphate 100 mg tablet 100 mg PO DAILY amlodipine 2.5 mg tablet 2.5 mg PO DAILY 30 Days Qty: 30 0RF Discontinued atenolol 50 mg tablet 50 mg PO DAILY Discharge Orders: Discharge Order (Routine); Ordered 08/03/22 Ordered By: Harrison Jordan/Other Patient Handouts: Managing Type 2 Diabetes, Special Foot Care for Diabetes Admission Data Admit Date/Time: 07/28/22 16:33 Attending Provider: Harrison Ward Admit Provider: Jennifer Izquierdo Primary Care Provider: Annabella Victoria Other Providers: David Jerry ; Jennifer Izquierdo Other Interventions: Discharge Summary Assessment (RN) Last Done: 08/03/22 10:22
--- NOTE | 2022-08-09 17:18 | Operative Report (OR) ---
DATE OF PROCEDURE: 08/02/2022. PREOPERATIVE DIAGNOSIS: Complete heart block. POSTOPERATIVE DIAGNOSIS: Complete heart block. PROCEDURE: Dual-chamber rate responsive permanent pacemaker under fluoroscopic guidance along with p eripheral venogram. SURGEON: Kimmy López DO. CHOCOLATE MAKER: None. ANESTHESIA: Monitored conscious sedation administered under my supervision by Pat Gonzales. Start time 08:16, end time 09:43. Total of 4 mg of Versed and 100 mcg of fentanyl. INTRAVENOUS FLUIDS: 160 mL ANTIBIOTICS: 600 mg of clindamycin. CONTRAST: 12 mL. BLOOD LOSS: 40 mL URINE OUTPUT: None. SPECIMENS: None. FINDINGS: See below. DRAINS: None. COMPLICATIONS: None. CONDITION: Stable. INDICATIONS: This is an 81-year-old female with a past medical history for hypertension, diabetes, h ypothyroidism, arthritis, mild aortic stenosis, CLL, vitamin B12 deficiency and recently diagnosed le ft breast cancer, status post partial mastectomy with sentinel node biopsy. The patient was sent to [facility] because during her breast surgery, she became bradycardic and she was ad mitted to the hospital. Her bradycardia persisted. It was high-degree AV block, pretty much complete heart block. Fortunately, she was not that symptomatic, but she was recommended a pacemaker prior t o discharge. CONSENT: Consent was obtained prior to the patient going into the electrophysiology lab. The patien t was explained risks, benefits, and alternatives to the procedure. Risks include, but not limited t o, sudden cardiac , cardiac arrhythmias, cerebrovascular accident, myocardial infarction, injury to the blood vessels, chamber of the heart and lung, bleeding and infection. The patient understood these risks and agreed to the procedure as planned. Informed consent was obtained. I looked through the op notes and it sounded like she only got a sentinel node biopsy and it was a pa rtial mastectomy on the left, so I opted that. It is best to go on the left given where we will need the lead placement. DESCRIPTION OF PROCEDURE: The patient was brought into the electrophysiology lab in a fasting state. She was connected to continuous cardiac monitoring. A time-out was performed to ensure patient chris ntity and procedure correctly. She was prepped and draped over the left temporal space in normal danial gical standard fashion. Monitored conscious sedation was given throughout the procedure for patient' s comfort level, universal precautions were maintained throughout the procedure. She received prophy lactic antibiotics prior to incision. A 20 mL of 1% lidocaine-bupivacaine mixture were given in the left deltopectoral groove. An incision was made in the left deltopectoral groove. Blunt dissection was performed down to the pectoralis mu scle. A pacemaker pocket was then created over the pectoralis muscles within the pectoral fascia usi ng blunt dissection. Then, a peripheral venogram was performed to identify the axillary vein. Venou s axillary access was obtained through a needlestick without any problems. A guidewire was inserted without any resistance. Then, a 7-Georgian sheath was inserted over the guidewire without any resistan ce. Dilator was removed. A second guidewire was inserted through the sheath to allow for retained v enous access. Sheath was removed, flushed, reinserted over the dilator, then reinserted over the juanito dewire. The guidewire and dilator removed. Then, the right atrial lead was temporarily placed in the right ventricular apex under fluoroscopic guidance, though we had backup pacing while I was position ing the left bundle lead. Then, a second 7-Georgian sheath was inserted over the retained guidewire, the guidewire and dilator re moved. The His C315 sheath was then advanced over a Glidewire into the right ventricle. The Glidewi re and dilator removed. Then, the pacing lead was advanced through the His C315 sheath and intracard iac electrogram His bundle recordings was attempted while the camera was in DUMONT 10. I never exactly s aw the clear His because of the high-degree heart block, but I had an idea where it was based on my A :V ratios. I then moved the camera to DUMONT 30 and marked where I thought the His was on my fluoroscop y screen, I came down about 2 cm from this in a line that would extend out to the apex. Then came on pacing to see that I had a nice W formed pace complex in V1. I then moved the camera to DIPAK 30, star stacey giving a series of clockwise turns to screw the lead into the septum. Of note, I did have to rep osition it two times, but ultimately I had nice movement into the septum with the development of a ni ce R prime and pace complex in V1 and impedance drop and I gave contrast through the sheath to see ho w I was well into the septum. I then slit the His C315 sheath under fluoroscopic guidance, leaving t he 7-Georgian sheath in while I positioned the right atrial lead. The right atrial lead screw was then retracted from the right ventricle apex and the lead was then ul timately placed in the right atrium. I did have some difficulty placing this, this was never sitting right. I ultimately swapped out the 7-Georgian short SafeSheath for a long 7-Georgian SafeSheath and th en I ultimately had to position it with the stylette pretty much all the way back because the lead wa s never flipping up prior to that, but ultimately after multiple attempts, I was able to get the lead into the right atrial appendage. There was adequate pacing and sensing thresholds and no diaphragma tic stimulation at high output pacing. The 7-Georgian sheath was peeled away and the lead was fixated to pectoralis muscle using 0 silk suture. The 7-Georgian sheath around the left bundle lead was then peeled away and the lead was fixated to pect oralis muscle using 0 silk suture. The pocket was flushed with copious amounts of vancomycin and saline wash and inspected for hemostasi s. The leads were then attached to the pulse generator making sure the pins were in appropriate and passed, set screws, and set screws were all tightened. Pulse generator was then placed in a TYRX rufina ch followed then by being placed in the pocket, making sure the leads were lying flat beneath the dev ice. The incision was closed in a 3-layer fashion with 2-0 Vicryl interrupted suture, followed by 3- 0 Vicryl interrupted suture, followed by 4-0 Monocryl running stitch and Dermabond was applied follow ed by Telfa and Tegaderm dressing. EQUIPMENT: 1. The pulse generator is a Medtronic Shakila XT DR ISABEL Jernigan [id number], serial number [id number]. 2. Right atrial lead, Medtronic 5076-52 cm, serial number [id number]. 3. Left bundle lead, Medtronic 3830-69 cm, serial number [id number]. INTRAOPERATIVE FINDINGS: 1. Right atrial lead, P waves 4.2 millivolts, impedance 903 ohms, threshold 2.8 volts at 0.5 millise conds. 2. Left bundle lead, R waves 10 millivolts, impedance 750 ohms, threshold 0.4 volts at 0.5 milliseco nds. FINAL MEASUREMENTS THROUGH THE DEVICE. 1. Right atrial lead, P waves 2.8 millivolts, impedance 702 ohms, threshold 2.5 volts at 0.4 millise conds. 2. Left bundle lead, R waves 11.8 millivolts, impedance 722 ohms, threshold 0.5 volts at 0.4 millise conds. FINAL PARAMETERS: DDD 60/120. Right atrial amplitude 3.5 volts, pulse width 0.4 milliseconds, sensi tivity 0.3 millivolts. Left bundle lead amplitude 3.5 volts, pulse width 0.4 milliseconds, sensitivi ty 0.9 millivolts. IMPRESSION: Successful dual chamber rate responsive permanent pacemaker under fluoroscopic guidance along with peripheral venogram secondary to complete heart block. PLAN: Monitor the patient post-procedure. Transfer back to her inpatient telemetry bed. She is not to lift the left elbow or left shoulder for 1 month. She cannot lift more than 10 pounds with left arm for 2 weeks. She is to keep the dressing on and dry until her wound check next week. We will dis cuss with the primary cardiology if she needs any Toprol and she needs a chest x-ray, EKG and recheck the device in a few hours. Job ID: [id number]
== END 2022-08-03 11:33 | disposition home or self-care (01) | DRG 243 ==
LOC: ED 15:04 → 2E 16:33 → SUATTDRO 16:33 → 2E 17:36

== ENCOUNTER 2022-08-13 09:41 | Observation (INO) ==
--- NOTE | 2022-08-13 10:30 | Emergency Department Note ---
Impression & Plan Brain TIA, HTN (hypertension), Leukocytosis ED Provider Note NAME: RHETT MARSH AGE: 81 SEX: F : 1940 ARRIVES VIA: Ambulance INFORMANT: Patient ED PROVIDER(S): Porter Suresh DO CHIEF COMPLAINT: right arm weak HPI: Patient is an 81-year-old female who presents the ER with a past medical history of CLL, diabetes, hypothyroidism, hypertension and AV heart block with a pacemaker placed who presents to the ER for right arm weakness. She went to get up around 7 AM this morning from sleeping. She noticed her right arm was not working. She had trouble closing her fingers and she had trouble lifting it. This has gradually resolved. She also had some pain and questionable weakness in the right lower extremity. She denies any headache or change in vision. No chest pain or shortness of breath. No nausea, vomiting, or diarrhea. No dysuria, urgency, or frequency. No other exacerbating or remitting factors. PAST MEDICAL HISTORY:See Below PAST SURGICAL HISTORY:See Below FAMILY HISTORY:See Below SOCIAL HISTORY:See Below HOME MEDICATIONS:See Below ALLERGIES:See Below VITALS:See Below PHYSICAL EXAMINATION: GENERAL: Sitting up in bed, alert, well appearing, well nourished, no distress, non-toxic EYE EXAM: normal conjunctiva. PERRL and EOM's intact. OROPHARYNX: no exudate, no erythema, lips, buccal mucosa, and tongue normal and mucous membranes are moist NECK: supple, no nuchal rigidity, no adenopathy, non-tender LUNGS: Clear to auscultation. Normal chest wall mechanics HEART: no murmurs, S1 normal and S2 normal ABDOMEN: abdomen soft, non-tender, normo-active bowel sounds, no masses, no rebound or guarding. UPPER EXTREMITIES: upper extremities are grossly normal. LOWER EXTREMITIES: No pitting edema. NEURO EXAM: Normal sensorium, cranial nerves II-XII intact, normal speech, no weakness of arms but does have trouble moving left shoulder with multiple previous old fractures, no weakness of legs. No drift. Finger to nose intact. Gross sensation intact. MEDICAL DECISION MAKING: Patient is an 81-year-old female who presents ER for above-stated complaint. IV was established and blood work was obtained. External records were reviewed. Labs show mild leukocytosis of 16,000. Question of this secondary to CLL versus recent placement of ICD. No signs of infection. No anemia. BMP along with LFTs bilirubin and lipase is unremarkable. Troponin was negative. UA was clean. TSH was normal. COVID was negative. CT angios of the head and neck showed no acute pathology. Chest x-ray was clean. Patient was updated bedside. Unclear whether this was peripheral or central in nature but with her history and recent ICD/pacer placement did discuss with the patient in regards to observation overnight. Patient and family were agreeable. Triage Nursing notes reviewed. Limited review of prior medical records performed Vital Signs: reviewed and remarkable for HTN Differential diagnosis: Differential Diagnosis includes but is not limited to ischemic Stroke, hemorrhagic stroke, bells palsy, mass, neoplasm, migraine headache, seizure, subarachnoid hemorrhage, TIA, and transient global amnesia. ER treatment provided: See below Diagnostics interpreted by me include EKG and cardiac monitoring as listed below: -Cardiac Monitoring: An order was placed for continuous cardiac monitoring. The monitor shows a rate of 70 with sinus rhythm. -ECG: Dual paced rate of 64 Normal axis No PVCs Low voltage QTc 449 -Laboratory studies:Interpreted by me as stated above in MDM and shown below. 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 High cholesterol History of chicken pox Hypothyroidism Neuropathy Surgical History History of cryosurgery to cervix d/t cervical erosion S/P cholecystectomy S/P left mastectomy S/P lumpectomy, left breast S/P oophorectomy right S/P placement of cardiac pacemaker S/P tonsillectomy S/P tubal ligation S/P wisdom tooth extraction Family History Grandmother (Paternal) Breast cancer Denies family history of Ovarian cancer Prostate cancer Colorectal cancer Social History Smoking Status: Never smoker Hx Alcohol Use: No Hx Substance Use: No Preferred Language: Frisian Communication Ability: Effective Compensation Adjuster Required: No Beliefs That Will Affect Care: None Current Living Situation: Alone Feels Safe at Home: Yes Assistive Devices: Cane Allergies Allergies Allergy/AdvReac Type Severity Reaction Status Date / Time erythromycin base Allergy Unknown gi upset Verified 07/28/22 16:25 Penicillins Allergy Unknown hives, rash Verified 07/28/22 16:25 Sulfa (Sulfonamide AdvReac upset Verified 07/28/22 16:25 Antibiotics) stomach Home Meds Home Medications Medication Instructions Recorded Confirmed aspirin 81 mg chewable tablet 81 mg PO DAILY 12/30/18 08/13/22 levothyroxine 50 mcg tablet 50 mcg PO DAILY 12/30/18 08/13/22 losartan 100 mg tablet 100 mg PO DAILY 12/30/18 08/13/22 metformin 500 mg tablet,extended 1,000 mg PO BID 12/30/18 08/13/22 release 24 hr omeprazole 20 mg tablet,delayed 20 mg PO DAILY 12/30/18 08/13/22 release pravastatin 40 mg tablet 40 mg PO DAILY 12/30/18 08/13/22 dulaglutide 1.5 mg/0.5 mL 1.5 mg subcut WK 08/13/22 08/13/22 subcutaneous pen injector (Trulicity) glipizide 5 mg tablet 10 mg PO BIDWMEAL 08/13/22 08/13/22 metoprolol succinate 50 mg 50 mg PO DAILY 08/13/22 08/13/22 tablet,extended release 24 hr Previous Rx's Medication Instructions Recorded amlodipine 2.5 mg tablet 2.5 mg PO DAILY 30 days #30 tabs 08/03/22 Results & Data (ED) Vital Signs Vital Signs - 24 hr 08/13/22 09:50 08/13/22 09:54 08/13/22 10:15 Temperature 37.2 C Temperature Source Skin Pulse Rate 68 70 74 Respiratory Rate 20 12 Respiratory Effort / Characteristics Non-Labored Spontaneous Respiratory Depth Normal Respiratory Pattern Regular Blood Pressure 197/76 H 125/87 Blood Pressure Mean 116 99 Pulse Oximetry 99 98 Oxygen Delivery Method Room Air Room Air Sepsis Recent Fever Within 48 Hours No Sepsis New/Unexplained Change in Mental Status N/A Sepsis Action Taken by Nursing No Action Required 08/13/22 13:38 Temperature Temperature Source Pulse Rate 72 Respiratory Rate Respiratory Effort / Characteristics Respiratory Depth Respiratory Pattern Blood Pressure Blood Pressure Mean Pulse Oximetry Oxygen Delivery Method Sepsis Recent Fever Within 48 Hours Sepsis New/Unexplained Change in Mental Status Sepsis Action Taken by Nursing Laboratory Data 08/13/22 09:54 08/13/22 09:54 Lab Results 08/13/22 08/13/22 08/13/22 Range/Units 09:54 09:54 09:54 WBC 16.25 H (4.8-10.8) K/ul RBC 5.07 (4.20-5.40) M/uL Hgb 14.4 (12.0-16.0) g/dl POC Hgb (12.0-16.0) g/dl Hct 44.3 (37.0-47.0) % POC Hct (37-47) % MCV 87.4 (80.0-100.0) fL MCH 28.4 (25.0-34.0) pg MCHC 32.5 (32.0-36.0) g/dL RDW Std Deviation 43.1 (36.4-46.3) fL RDW Coeff of Karrie 13.8 (11.5-14.5) % Plt Count 281 (130-400) K/uL MPV 11.0 (9.4-12.4) fL Immature Gran % (Auto) 0.5 % Neut % (Auto) 47.5 % Lymph % (Auto) 45.9 % Buchanan % (Auto) 3.8 % Eos % (Auto) 2.0 % Baso % (Auto) 0.3 % Neut # (Auto) 7.72 H (1.40-6.50) K/uL Lymph # (Auto) 7.46 H (1.2-3.4) K/uL Buchanan # (Auto) 0.61 H (0.11-0.59) K/uL Eos # (Auto) 0.33 (0-0.50) K/uL Baso # (Auto) 0.05 (0-0.2) K/uL Immature Gran # (Auto) 0.08 (0.01-0.20) K/uL Smudge Cells Present POC Sodium (135-144) mmol/L Sodium 137 (136-145) mmol/L POC Potassium (3.3-5.0) mmol/L Potassium 5.1 (3.5-5.1) mmol/L POC Chloride (101-112) mmol/L Chloride 100 (98-107) mmol/L Carbon Dioxide 28 (21-32) mmol/L POC Total CO2 (24-31) mmol/L Anion Gap 9 (3-11) POC Anion Gap (16-25) mmol/L POC BUN (7-18) mg/dl BUN 15 (6-23) mg/dl Creatinine 0.74 (0.6-1.2) mg/dl POC Creatinine (0.6-1.3) mg/dl Est Cr Clr Drug Dosing 52.4 ml/min Est GFR ( Amer) 88.7 ml/min Est GFR (Non-Af Amer) 76.5 ml/min BUN/Creatinine Ratio 20.3 H (10-20) Glucose 75 (70-99(Fasting)) mg/dl POC Glucose (other) (70-99) mg/dl Calcium 10.0 (8.6-10.3) mg/dl POC Ioniz Calcium Barber (1.12-1.32) mmol/l Total Bilirubin 0.3 (0.2-1.0) mg/dl AST 28 (13-39) U/L ALT 21 (7-52) U/L Alkaline Phosphatase 77 (34-104) U/L Troponin I High Sens 6.7 (0-14) pg/ml Total Protein 7.2 (6.0-8.3) gm/dl Albumin 4.0 (3.4-5.0) gm/dl Globulin 3.2 (2.5-4.0) gm/dl Albumin/Globulin Ratio 1.3 (0.9-2) TSH 2.194 (0.300-4.500) uIu/ml Urine Color Urine Appearance (Clear) Urine pH (4.5-7.5) Ur Specific Sparks (1.000-1.030) Urine Protein (Negative) Urine Glucose (UA) (Negative) Urine Ketones (Negative) Urine Blood (Negative) Urine Nitrite (Negative) Urine Bilirubin (Negative) Urine Urobilinogen (Negative) Ur Leukocyte Esterase (Negative) SARS-CoV-2, RNA, NAAT (NEGATIVE) 08/13/22 08/13/22 08/13/22 Range/Units 10:45 10:52 11:19 WBC (4.8-10.8) K/ul RBC (4.20-5.40) M/uL Hgb (12.0-16.0) g/dl POC Hgb 13.6 (12.0-16.0) g/dl Hct (37.0-47.0) % POC Hct 40 (37-47) % MCV (80.0-100.0) fL MCH (25.0-34.0) pg MCHC (32.0-36.0) g/dL RDW Std Deviation (36.4-46.3) fL RDW Coeff of Karrie (11.5-14.5) % Plt Count (130-400) K/uL MPV (9.4-12.4) fL Immature Gran % (Auto) % Neut % (Auto) % Lymph % (Auto) % Buchanan % (Auto) % Eos % (Auto) % Baso % (Auto) % Neut # (Auto) (1.40-6.50) K/uL Lymph # (Auto) (1.2-3.4) K/uL Buchanan # (Auto) (0.11-0.59) K/uL Eos # (Auto) (0-0.50) K/uL Baso # (Auto) (0-0.2) K/uL Immature Gran # (Auto) (0.01-0.20) K/uL Smudge Cells POC Sodium 136 (135-144) mmol/L Sodium (136-145) mmol/L POC Potassium 4.8 (3.3-5.0) mmol/L Potassium (3.5-5.1) mmol/L POC Chloride 100 L (101-112) mmol/L Chloride (98-107) mmol/L Carbon Dioxide (21-32) mmol/L POC Total CO2 26 (24-31) mmol/L Anion Gap (3-11) POC Anion Gap 16.0 (16-25) mmol/L POC BUN 15 (7-18) mg/dl BUN (6-23) mg/dl Creatinine (0.6-1.2) mg/dl POC Creatinine 0.7 (0.6-1.3) mg/dl Est Cr Clr Drug Dosing ml/min Est GFR ( Amer) ml/min Est GFR (Non-Af Amer) ml/min BUN/Creatinine Ratio (10-20) Glucose (70-99(Fasting)) mg/dl POC Glucose (other) 71 (70-99) mg/dl Calcium (8.6-10.3) mg/dl POC Ioniz Calcium Barber 1.24 (1.12-1.32) mmol/l Total Bilirubin (0.2-1.0) mg/dl AST (13-39) U/L ALT (7-52) U/L Alkaline Phosphatase (34-104) U/L Troponin I High Sens (0-14) pg/ml Total Protein (6.0-8.3) gm/dl Albumin (3.4-5.0) gm/dl Globulin (2.5-4.0) gm/dl Albumin/Globulin Ratio (0.9-2) TSH (0.300-4.500) uIu/ml Urine Color Yellow Urine Appearance Clear (Clear) Urine pH 5.5 (4.5-7.5) Ur Specific Sparks 1.010 (1.000-1.030) Urine Protein Negative (Negative) Urine Glucose (UA) Negative (Negative) Urine Ketones Negative (Negative) Urine Blood Negative (Negative) Urine Nitrite Negative (Negative) Urine Bilirubin Negative (Negative) Urine Urobilinogen Negative (Negative) Ur Leukocyte Esterase Negative (Negative) SARS-CoV-2, RNA, NAAT NEGATIVE (NEGATIVE) Administered Medications Discontinued Medications Ioversol (Optiray 320 500ml) 104 ml IV ONCE ONE Stop: 08/13/22 10:57 Last Admin: 08/13/22 10:59 Dose: 104 ml Documented By: JUDAH Imaging Data Radiologist's Impression: Chest X-Ray 08/13/22 10:24 XR chest 1V portable CLINICAL HISTORY: weakness COMPARISON STUDY: Chest radiograph July 28, 2022. FINDINGS: Dual lead left subclavian pacer is in place. Lung volumes are normal. Lungs are clear. There is no pneumothorax or pleural effusion. Cardiomegaly is unchanged. Mediastinal contours are normal. There is no evidence for pulmonary edema. Old right humeral neck fracture is incidentally noted. IMPRESSION: No acute cardiopulmonary findings. Stable cardiomegaly. ACT 112: Negative or not required by law. Electronically signed by: Tarik Chacon M.D. 08/13/2022 11:11 AM Head CTA 08/13/22 10:24 CT angio head wo/w CLINICAL HISTORY: Right arm weakness. COMPARISON STUDY: Head CT July 25, 2016. TECHNIQUE: Unenhanced and arterial phase imaging of the head was performed. Intravenous injection of 104 cc of Optiray 320 IV was uneventful. Sagittal and coronal reconstructions were viewed as well as maximal intensity projections on an independent 3-D workstation. Automated exposure control was utilized for the study. A dose lowering technique was utilized adhering to the principles of ALARA. FINDINGS: No acute intracranial hemorrhage, midline shift or mass effect is present. Ventricular system is unremarkable. Basal cisterns are patent. There are no extra-axial collections. White matter hypodensities are suggestive of small vessel disease. There are no findings to suggest acute dural sinus thrombosis or acute territorial infarct. There are no significant calvarial abnormalities. The bilateral M1, M2, A1 and A2 segments are patent. There is no central vessel occlusion. There is mild plaque within the cavernous carotids without stenosis. There are bilateral posterior communicating arteries. The posterior circulation is intact. 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 The posterior cerebral arteries are patent. Basilar artery is patent. IMPRESSION: 1. No acute intracranial findings. 2. No central vessel occlusion. No intracranial aneurysm. ACT 112: Negative or not required by law. Electronically signed by: Tarik Chacon M.D. 08/13/2022 11:22 AM Neck CTA 08/13/22 10:24 CT ANGIOGRAPHY OF THE NECK WITH CONTRAST CLINICAL HISTORY: Right arm weakness. COMPARISON STUDY: No previous studies for comparison. Technique: CT angiography of the carotid and vertebral arteries was obtained us ing Optiray and 3D reconstruction on an independent workstation. NASCET criteria was utilized. Automated exposure control was utilized for the study. A dose lowering technique was utilized adhering to the principles of ALARA. CT DOSE: 1001.34 mGy.cm Findings: Left subclavian pacer is incidentally noted. No acute cervical spine fracture is present. There is no cervical lymphadenopathy. Visualized portions of the lung apices are unremarkable. Retropharyngeal course of the carotids is incidentally noted. There is plaque at the origin of the right subclavian artery without stenosis. There is mild plaque within the distal right common carotid artery as well as the right carotid bifurcation without stenosis. There is tortuosity of the bilateral cervical internal carotid arteries. Mild plaque within the proximal left internal carotid artery is noted without stenosis. The bilateral vertebral arteries are patent. The origin of the left vertebral artery is suboptimally assessed due to artifact. Calcification and the origin the left vertebral artery is present. There is no aneurysm within the neck. There is no dissection within the major vessels of the neck. IMPRESSION: 1. Mild atherosclerotic plaque within the carotid bifurcations without associated stenosis. 2. Suboptimal evaluation of the origin of the left vertebral artery due to artifact. 3. No dissection or aneurysm within the neck. ACT 112: Negative or not required by law. Electronically signed by: Tarik Chacon M.D. 08/13/2022 11:40 AM Discharge Plan Visit Data Chief Complaint: Weakness ED Provider: Porter Suresh Discharge Problem: Brain TIA, HTN (hypertension), Leukocytosis Forms Stand Alone Forms: [facility] [employer] Prescriptions Prescriptions: No Action aspirin 81 mg tablet,chewable 81 mg PO DAILY levothyroxine 50 mcg tablet 50 mcg PO DAILY losartan 100 mg tablet 100 mg PO DAILY metformin 500 mg tablet extended release 24 hr 1,000 mg PO BID omeprazole 20 mg tablet,delayed release (DR/EC) 20 mg PO DAILY pravastatin 40 mg tablet 40 mg PO DAILY metoprolol succinate 50 mg tablet extended release 24 hr 50 mg PO DAILY glipizide 5 mg tablet 10 mg PO BIDWMEAL Trulicity 1.5 mg/0.5 mL pen injector 1.5 mg SUBCUT WK amlodipine 2.5 mg tablet 2.5 mg PO DAILY 30 Days Qty: 30 0RF Referrals Referrals: Annabella Victoria DO [Primary Care Provider] -
[2022-08-13 10:40] LABS: Hematocrit (blood only) 44.3 % (37.0-47.0); Hemoglobin 14.4 g/dl (12.0-16.0); Mean Corpuscular Hemoglobin 28.4 pg (25.0-34.0); Mean Corpuscular Hgb Conc 32.5 g/dL (32.0-36.0); Mean Corpuscular Volume 87.4 fL (80.0-100.0); Platelet Count 281 K/uL (130-400); RDW Coefficient of Variation 13.8 % (11.5-14.5); RDW Standard Deviation 43.1 fL (36.4-46.3); Red Blood Count 5.07 M/uL (4.20-5.40); White Blood Count 16.25 K/ul (4.8-10.8)
[2022-08-13 10:54] LABS: Albumin Globulin Ratio 1.3 (0.9-2); BUN Creatinine Ratio 20.3 (10-20); Bilirubin,Total 0.3 mg/dl (0.2-1.0); Creatinine Clr Calc Pharmacy 52.4 ml/min; Est GFR (African American) 88.7 ml/min; Est GFR (Non-African American) 76.5 ml/min; Globulin 3.2 gm/dl (2.5-4.0); Potassium 5.1 mmol/L (3.5-5.1); Total Protein 7.2 gm/dl (6.0-8.3)
[2022-08-13] MEDS ORDERED: OPTIRAY 320 500ml IV ONE (10:56)
[2022-08-13 10:57] LABS: iSTAT Creatinine 0.7 mg/dl (0.6-1.3); iSTAT Hemoglobin 13.6 g/dl (12.0-16.0); iSTAT Ionized Calcium 1.24 mmol/l (1.12-1.32); iSTAT Potassium 4.8 mmol/L (3.3-5.0)
[2022-08-13 10:59] LABS: Troponin I High Sensitivity 6.7 pg/ml (0-14)
--- NOTE | 2022-08-13 11:12 | XRay Report ---
XR chest 1V portable CLINICAL HISTORY: weakness COMPARISON STUDY: Chest radiograph July 28, 2022. FINDINGS: Dual lead left subclavian pacer is in place. Lung volumes are normal. Lungs are clear. Ther e is no pneumothorax or pleural effusion. Cardiomegaly is unchanged. Mediastinal contours are normal. There is no evidence for pulmonary edema. Old right humeral neck fracture is incidentally noted. IMPRESSION: No acute cardiopulmonary findings. Stable cardiomegaly. ACT 112: Negative or not required by law. Electronically signed by: Tarik Chacon M.D. 08/13/2022 11:11 AM
[2022-08-13 11:15] LABS: Basophils # (auto) 0.05 K/uL (0-0.2); Basophils % (auto) 0.3 %; Eosinophils # (auto) 0.33 K/uL (0-0.50); Immature Granulocytes # (auto) 0.08 K/uL (0.01-0.20); Immature Granulocytes % (auto) 0.5 %; Lymphocytes # (auto) 7.46 K/uL (1.2-3.4); Lymphocytes % (auto) 45.9 %; Monocytes # (auto) 0.61 K/uL (0.11-0.59); Monocytes % (auto) 3.8 %; Neutrophils # (auto) 7.72 K/uL (1.40-6.50); Neutrophils % (auto) 47.5 %; Smudge Cells Present
[2022-08-13 11:17] LABS: Appearance Urine Clear (Clear); Bilirubin Urine Negative (Negative); Blood Urine Negative (Negative); Color Urine Yellow; Glucose Urine UA Negative (Negative); Ketones Urine Negative (Negative); Leukocyte Esterase Urine Negative (Negative); Nitrite Urine Negative (Negative); Protein Urine Negative (Negative); Urobilinogen Urine Negative (Negative); pH Urine 5.5 (4.5-7.5)
--- NOTE | 2022-08-13 11:24 | CT Scan Report ---
CT angio head wo/w CLINICAL HISTORY: Right arm weakness. COMPARISON STUDY: Head CT July 25, 2016. TECHNIQUE: Unenhanced and arterial phase imaging of the head was performed. Intravenous injection of 104 cc of Optiray 320 IV was uneventful. Sagittal and coronal reconstructions were viewed as well as maximal intensity projections on an independent 3-D workstation. Automated exposure control was utili [employer] for the study. A dose lowering technique was utilized adhering to the principles of ALARA. FINDINGS: No acute intracranial hemorrhage, midline shift or mass effect is present. Ventricular syst em is unremarkable. Basal cisterns are patent. There are no extra-axial collections. White matter hyp odensities are suggestive of small vessel disease. There are no findings to suggest acute dural sinus thrombosis or acute territorial infarct. There are no significant calvarial abnormalities. The bilat eral M1, M2, A1 and A2 segments are patent. There is no central vessel occlusion. There is mild plaqu e within the cavernous carotids without stenosis. There are bilateral posterior communicating arterie s. The posterior circulation is intact. 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 The posteri or cerebral arteries are patent. Basilar artery is patent. IMPRESSION: 1. No acute intracranial findings. 2. No central vessel occlusion. No intracranial aneurysm. ACT 112: Negative or not required by law. Electronically signed by: Tarik Chacon M.D. 08/13/2022 11:22 AM
--- NOTE | 2022-08-13 11:43 | CT Scan Report ---
CT ANGIOGRAPHY OF THE NECK WITH CONTRAST CLINICAL HISTORY: Right arm weakness. COMPARISON STUDY: No previous studies for comparison. Technique: CT angiography of the carotid and vertebral arteries was obtained using Optiray and 3D rec onstruction on an independent workstation. NASCET criteria was utilized. Automated exposure control was utilized for the study. A dose lowering technique was utilized adhering to the principles of ALA RA. CT DOSE: 1001.34 mGy.cm Findings: Left subclavian pacer is incidentally noted. No acute cervical spine fracture is present. T here is no cervical lymphadenopathy. Visualized portions of the lung apices are unremarkable. Retroph aryngeal course of the carotids is incidentally noted. There is plaque at the origin of the right sub clavian artery without stenosis. There is mild plaque within the distal right common carotid artery a s well as the right carotid bifurcation without stenosis. There is tortuosity of the bilateral cervic al internal carotid arteries. Mild plaque within the proximal left internal carotid artery is noted w ithout stenosis. The bilateral vertebral arteries are patent. The origin of the left vertebral artery is suboptimally assessed due to artifact. Calcification and the origin the left vertebral artery is present. There is no aneurysm within the neck. There is no dissection within the major vessels of the neck. IMPRESSION: 1. Mild atherosclerotic plaque within the carotid bifurcations without associated stenosis. 2. Suboptimal evaluation of the origin of the left vertebral artery due to artifact. 3. No dissection or aneurysm within the neck. ACT 112: Negative or not required by law. Electronically signed by: Tarik Chacon M.D. 08/13/2022 11:40 AM
--- NOTE | 2022-08-13 12:26 | History & Physical Report ---
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 Since being in the ED these symptoms are resolving and pt is nearly back to baseline. Initial CT negative for CVA. - Admit to PCU for monitoring overnight including Q4 neuro checks - Repeat ECHO - MRI brain for further evaluation - PT/OT consults - passed bedside speech eval in the ED so will defer speech eval at this time - Consult neurology for additional recommendations - Change statin to Lipitor 80 mg - Dual anti-platelet therapy - continue aspirin, add Plavix - Labs in AM - CBC, BMP, A1c and lipids per stroke protocol - Fall precautions, aspiration precautions (2) Diabetes mellitus type 2 in nonobese: Plan: Holding outpatient meds while admitted, especially with episode of hypoglycemia this morning - Insulin sliding scale - BSG ACHS (3) Hypothyroidism: (4) HTN (hypertension): (5) Ductal carcinoma in situ (DCIS) of left breast: (6) CLL (chronic lymphocytic leukemia): Plan Continue other home medications as appropriate. Pt seen and reviewed with collaborating physician, Dr. Blanton. Plan of care discussed and as outlined above. 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 Pt was recently admitted to this facility 07/28-08/03/22 after she underwent left partial mastectomy and was noted to be in complete heart block so referred to the ED. Since being discharged after pacemaker placement, pt reports that she has overall been doing well other than ongoing left shoulder discomfort related PPM placement. No significant discomfort from partial mastectomy - had post-op visit with surgery and was told everything is healing well. When pt woke up this morning, she was unable to get out of bed due to new onset right arm and ri ght leg weakness. Associated urinary incontinence b/c couldn't get up to make it to the bathroom. About an hour or two later, she called for her daughter for help as the symptoms had persistent. At that time, she stated that she couldn't move her right hand but her daughter said that she was actually moving her right fingers and wasn't aware/couldn't feel it. Speech wasn't slurred but it also w asn't normal per family. No facial droop noted. Daughter called 911 and pt was brought to the ED. EMS said she was hypoglycemic (50s) on initial evaluation and pt was given glucose gel. Since arriving in the ED, movement in right side seems to be returning and she feels like she's back to baseline. She was able to eat applesauce in the ED without issue swallowing. Taking baby aspirin and statin daily. No prior TIA/CVA or CO previously. She does note that she has not been as ambulatory as usual since recent discharge and has been lying more on her right side due to recent procedures affecting the left. Allergies Allergy/AdvReac Type Severity Reaction Status Date / Time erythromycin base Allergy Unknown gi upset Verified 07/28/22 16:25 Penicillins Allergy Unknown hives, rash Verified 07/28/22 16:25 Sulfa (Sulfonamide AdvReac upset Verified 07/28/22 16:25 Antibiotics) stomach Home Medications Medication Instructions Recorded Confirmed Type aspirin 81 mg chewable tablet 81 mg PO DAILY 12/30/18 08/13/22 History levothyroxine 50 mcg tablet 50 mcg PO DAILY 12/30/18 08/13/22 History losartan 100 mg tablet 100 mg PO DAILY 12/30/18 08/13/22 History metformin 500 mg tablet,extended 1,000 mg PO BID 12/30/18 08/13/22 History release 24 hr omeprazole 20 mg tablet,delayed 20 mg PO DAILY 12/30/18 08/13/22 History release pravastatin 40 mg tablet 40 mg PO DAILY 12/30/18 08/13/22 History amlodipine 2.5 mg tablet 2.5 mg PO DAILY 30 days #30 tabs 08/03/22 08/13/22 Rx dulaglutide 1.5 mg/0.5 mL 1.5 mg subcut WK 08/13/22 08/13/22 History subcutaneous pen injector (Trulicity) glipizide 5 mg tablet 10 mg PO BIDWMEAL 08/13/22 08/13/22 History metoprolol succinate 50 mg 50 mg PO DAILY 08/13/22 08/13/22 History tablet,extended release 24 hr Past Med/Surg History Medical History AV heart block CLL (chronic lymphocytic leukemia) Diabetes mellitus type 2 in nonobese Ductal carcinoma in situ (DCIS) of left breast High cholesterol History of chicken pox Hypothyroidism Neuropathy Surgical History History of cryosurgery to cervix d/t cervical erosion S/P cholecystectomy S/P left mastectomy S/P lumpectomy, left breast S/P oophorectomy right S/P placement of cardiac pacemaker S/P tonsillectomy S/P tubal ligation S/P wisdom tooth extraction Family History Grandmother (Paternal) Breast cancer Denies family history of Ovarian cancer Prostate cancer Colorectal cancer Social History Smoking Status: Never smoker Hx Alcohol Use: No Hx Substance Use: No Preferred Language: Ukrainian Communication Ability: Effective Compensation And Benefits Administrator Required: No Beliefs That Will Affect Care: None Current Living Situation: Alone Feels Safe at Home: Yes Assistive Devices: Cane Review of Systems Review of Systems: All systems reviewed & are unremarkable except as noted in HPI & below Constitutional: no fever, no chills and no sweats Eyes: no diplopia Ear, Nose, Mouth, Throat: no dysphagia Respiratory: no cough and no dyspnea Cardiovascular: no chest pain, no palpitations, no syncope and no edema Gastrointestinal: no abdominal pain, no nausea and no vomiting Genitourinary: no dysuria and no hematuria Musculoskeletal: + joint pain (left shoulder) Integumentary: no yellowing of the skin Neurologic: as per Subjective / HPI Physical Exam Constitutional: well developed and well nourished; no acute distress Eyes: PERRL, conjunctivae normal, anicteric sclerae ENMT: external ear and nose normal, oropharynx normal Neck: trachea midline Respiratory: no respiratory distress and no labored breathing Auscultation: lungs clear to auscultation bilaterally; no rales, no rhonchi and no wheezes Cardiovascular: Rate/Rhythm: regular rate and regular rhythm Vessels: radial pulses present Extremities: no edema Gastrointestinal (Abdomen): Inspection/Auscultation: normal bowel sounds; abdomen not distended Percussion/Palpation: abdomen soft; abdomen nontender Musculoskeletal: Head/Neck/Chest: normocephalic and head atraumatic Skin: no jaundice incision from PPM placement healing well without surrounding erythema or drainage Neurologic: moves all extremities; not confused Cranial Nerves: PERRL, EOM intact bilaterally, normal facial strength, tongue midline and able to rotate head bilaterally left (5/5) > right (4/5) LE strength, bilateral UE strength equal Psychiatric: A+Ox3, euthymic affect Results & Data Results & Data Vital Signs (Past 12 Hours) Vital Signs Temp Pulse Resp BP Pulse Ox O2 Del Method 08/13/22 10:15 74 12 125/87 98 Room Air 08/13/22 09:54 70 08/13/22 09:50 37.2 C 68 20 197/76 H 99 Room Air Laboratory Results Laboratory Results - last 24 hr 08/13/22 08/13/22 08/13/22 09:54 09:54 09:54 WBC 16.25 H RBC 5.07 Hgb 14.4 POC Hgb Hct 44.3 POC Hct MCV 87.4 MCH 28.4 MCHC 32.5 RDW Std Deviation 43.1 RDW Coeff of Karrie 13.8 Plt Count 281 MPV 11.0 Immature Gran % (Auto) 0.5 Neut % (Auto) 47.5 Lymph % (Auto) 45.9 Garvin % (Auto) 3.8 Eos % (Auto) 2.0 Baso % (Auto) 0.3 Neut # (Auto) 7.72 H Lymph # (Auto) 7.46 H Garvin # (Auto) 0.61 H Eos # (Auto) 0.33 Baso # (Auto) 0.05 Immature Gran # (Auto) 0.08 Smudge Cells Present POC Sodium Sodium 137 POC Potassium Potassium 5.1 POC Chloride Chloride 100 Carbon Dioxide 28 POC Total CO2 Anion Gap 9 POC Anion Gap POC BUN BUN 15 Creatinine 0.74 POC Creatinine Est Cr Clr Drug Dosing 52.4 Est GFR ( Amer) 88.7 Est GFR (Non-Af Amer) 76.5 BUN/Creatinine Ratio 20.3 H Glucose 75 POC Glucose (other) Calcium 10.0 POC Ioniz Calcium Barber Total Bilirubin 0.3 AST 28 ALT 21 Alkaline Phosphatase 77 Troponin I High Sens 6.7 Total Protein 7.2 Albumin 4.0 Globulin 3.2 Albumin/Globulin Ratio 1.3 TSH 2.194 Urine Color Urine Appearance Urine pH Ur Specific [place] Urine Protein Urine Glucose (UA) Urine Ketones Urine Blood Urine Nitrite Urine Bilirubin Urine Urobilinogen Ur Leukocyte Esterase SARS-CoV-2, RNA, NAAT 08/13/22 08/13/22 08/13/22 10:45 10:52 11:19 WBC RBC Hgb POC Hgb 13.6 Hct POC Hct 40 MCV MCH MCHC RDW Std Deviation RDW Coeff of Karrie Plt Count MPV Immature Gran % (Auto) Neut % (Auto) Lymph % (Auto) Garvin % (Auto) Eos % (Auto) Baso % (Auto) Neut # (Auto) Lymph # (Auto) Garvin # (Auto) Eos # (Auto) Baso # (Auto) Immature Gran # (Auto) Smudge Cells POC Sodium 136 Sodium POC Potassium 4.8 Potassium POC Chloride 100 L Chloride Carbon Dioxide POC Total CO2 26 Anion Gap POC Anion Gap 16.0 POC BUN 15 BUN Creatinine POC Creatinine 0.7 Est Cr Clr Drug Dosing Est GFR ( Amer) Est GFR (Non-Af Amer) BUN/Creatinine Ratio Glucose POC Glucose (other) 71 Calcium POC Ioniz Calcium Barber 1.24 Total Bilirubin AST ALT Alkaline Phosphatase Troponin I High Sens Total Protein Albumin Globulin Albumin/Globulin Ratio TSH Urine Color Yellow Urine Appearance Clear Urine pH 5.5 Ur Specific [place] 1.010 Urine Protein Negative Urine Glucose (UA) Negative Urine Ketones Negative Urine Blood Negative Urine Nitrite Negative Urine Bilirubin Negative Urine Urobilinogen Negative Ur Leukocyte Esterase Negative SARS-CoV-2, RNA, NAAT NEGATIVE Diagnostic Findings Chest X-Ray 08/13/22 10:24 XR chest 1V portable CLINICAL HISTORY: weakness COMPARISON STUDY: Chest radiograph July 28, 2022. FINDINGS: Dual lead left subclavian pacer is in place. Lung volumes are normal. Lungs are clear. There is no pneumothorax or pleural effusion. Cardiomegaly is unchanged. Mediastinal contours are normal. There is no evidence for pulmonary edema. Old right humeral neck fracture is incidentally noted. IMPRESSION: No acute cardiopulmonary findings. Stable cardiomegaly. Head CTA 08/13/22 10:24 CT angio head wo/w CLINICAL HISTORY: Right arm weakness. COMPARISON STUDY: Head CT July 25, 2016. TECHNIQUE: Unenhanced and arterial phase imaging of the head was performed. Intravenous injection of 104 cc of Optiray 320 IV was uneventful. Sagittal and coronal reconstructions were viewed as well as maximal intensity projections on an independent 3-D workstation. Automated exposure control was utilized for the study. A dose lowering technique was utilized adhering to the principles of ALARA. FINDINGS: No acute intracranial hemorrhage, midline shift or mass effect is present. Ventricular system is unremarkable. Basal cisterns are patent. There are no extra-axial collections. White matter hypodensities are suggestive of small vessel disease. There are no findings to suggest acute dural sinus thrombosis or acute territorial infarct. There are no significant calvarial abnormalities. The bilateral M1, M2, A1 and A2 segments are patent. There is no central vessel occlusion. There is mild plaque within the cavernous carotids without stenosis. There are bilateral posterior communicating arteries. The po sterior circulation is intact. 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 The posterior cerebral arteries are patent. Basilar artery is patent. IMPRESSION: 1. No acute intracranial findings. 2. No central vessel occlusion. No intracranial aneurysm. Neck CTA 08/13/22 10:24 CT ANGIOGRAPHY OF THE NECK WITH CONTRAST CLINICAL HISTORY: Right arm weakness. COMPARISON STUDY: No previous studies for comparison. Technique: CT angiography of the carotid and vertebral arteries was obtained using Optiray and 3D reconstruction on an independent workstation. NASCET criteria was utilized. Automated exposure control was utilized for the study. A dose lowering technique was utilized adhering to the principles of ALARA. CT DOSE: 1001.34 mGy.cm Findings: Left subclavian pacer is incidentally noted. No acute cervical spine fracture is present. There is no cervical lymphadenopathy. Visualized portions of the lung apices are unremarkable. Retropharyngeal course of the carotids is incidentally noted. There is plaque at the origin of the right subclavian artery without stenosis. There is mild plaque within the distal right common carotid artery as well as the right carotid bifurcation without stenosis. There is tortuosity of the bilateral cervical internal carotid arteries. Mild plaque within the proximal left internal carotid artery is noted without stenosis. The bilateral vertebral arteries are patent. The origin of the left vertebral artery is suboptimally assessed due to artifact. Calcification and the origin the left vertebral artery is present. There is no aneurysm within the neck. There is no dissection within the major vessels of the neck. IMPRESSION: 1. Mild atherosclerotic plaque within the carotid bifurcations without associated stenosis. 2. Suboptimal evaluation of the origin of the left vertebral artery due to artifact. 3. No dissection or aneurysm within the neck. Medications Administered Discontinued Medications Ioversol (Optiray 320 500ml) 104 ml IV ONCE ONE Stop: 08/13/22 10:57 Last Admin: 08/13/22 10:59 Dose: 104 ml Documented By: JUDAH Code Status & VTE Plan VTE Prophylaxis Plan VTE Prophylaxis will be ordered: Yes Supervising Physician Co-Signing Physician Notes Pt is a 81 y/o F with recent hx of CHB s/p Dual chamber pacemaker, L breast Ca s/p aleft partialmastectomy and sentinel lymph node resection, DMII, CLL, HTN, Hypothyroidism, HLD admitted for acute episode of R arm and R leg weakness. Per pt symptoms are resolved when she arrived to the ER Symptom started today morning around 6-7 pm. No facial droop or slur speech but possible acute confusion per family. No prior hx of CVA, CO. PE: NAD, well developed Heart: Normal S1/S2, no murmur Lungs: CTA, no wheezing or crackle Abd: ND, NT, soft Neuro: CN II-XII intact, normal strength on b/l UE, slight weakness of the R LE (4/5), PERRLA, EOMI AAOx3, normal affect A/P: Acute R extremities weakness: symptoms resolved - likely TIA -CTA head and Neck: no severe stenosis -CT head: no acute finding -pt did have very slight weakness on the RLE but normal strength on RUE -Will obtain MRI brain -due to the recent pacemaker placement will get echo -admit to tele - neuro checks -admit to tele -neurology consult -will start pt on Plavix and continue aspirin 81mg and change the statin to Lipitor 80mg daily -PT/OT Hypoglycemia with DMII: -around 4pm received a tigertext from the nurse --- pt was Altered -at bedside: pt was altered but moving all of her extremities --- no facial droop --- fingerstick at that time was 40 --- Symptoms improved dramatically with 1 amp of dextrose -pt is on trulicity, Glipizide and metformin - last A1C was 7.1 - hold on DMII med and manage with ISS ---- consider holding glipizide on discharge and repeat A1C in AM Other chronic conditions: plan as above Agree with A/P by Arlin Shi PA-C
--- NOTE | 2022-08-13 12:30 | Electrocardiogram Report ---
Test Reason : Blood Pressure : / mmHG Vent. Rate : 064 BPM Atrial Rate : 064 BPM P-R Int : 146 ms QRS Dur : 108 ms QT Int : 436 ms P-R-T Axes : 075 135 022 degrees QTc Int : 449 ms AV dual-paced rhythm with Premature atrial complexes Abnormal ECG When compared with ECG of 02-AUG-2022 12:12, Premature atrial complexes now present Vent. rate has decreased BY 5 BPM Confirmed by Homer Reyes ([id number]) on 08/13/2022 12:30:44 PM Referred By: REFERRED SELF Confirmed By:Homer Reyes
[2022-08-13] MEDS ORDERED: PHARMACIST DISCHARGE MED REC CONSULT PRN (16:03)
[2022-08-13] MEDS ORDERED: CARBOHYDRATES FOR HYPOGLYCEMIA PO PRN (16:03)
[2022-08-13] MEDS ORDERED: GLUCAGON FOR INJ 1 MG VIAL SQ PRN (16:03)
[2022-08-13] MEDS ORDERED: GLUCOSE 40% GEL 15 GM TUBE PO PRN (16:03)
[2022-08-13] MEDS ORDERED: DEXTROSE 50% 50 ML SYRINGE IV PRN (16:03)
[2022-08-13] MEDS ORDERED: GLUCOSE 10 TAB/TUBE PO PRN (16:03)
[2022-08-13] MEDS ORDERED: DEXTROSE 50% 50 ML SYRINGE IV ONE (16:34)
[2022-08-13] MEDS: CLOPIDOGREL BISULFATE 75 MG TAB PO SCH (18:20)
[2022-08-13] MEDS: INSULIN ASPART PER UNIT CHARGE SC SCH ×2 (18:53→20:21)
[2022-08-13] MEDS: ACETAMINOPHEN 325 MG TAB PO PRN (19:22)
[2022-08-14] MEDS: ACETAMINOPHEN 325 MG TAB PO PRN (01:58)
[2022-08-14] MEDS: LEVOTHYROXINE SODIUM 50 MCG TABLET PO SCH (06:07)
[2022-08-14 06:33] LABS: Hematocrit (blood only) 38.4 % (37.0-47.0); Hemoglobin 12.9 g/dl (12.0-16.0); Mean Corpuscular Hemoglobin 28.7 pg (25.0-34.0); Mean Corpuscular Hgb Conc 33.6 g/dL (32.0-36.0); Mean Corpuscular Volume 85.5 fL (80.0-100.0); Mean Platelet Volume 10.8 fL (9.4-12.4); Platelet Count 216 K/uL (130-400); RDW Coefficient of Variation 13.3 % (11.5-14.5); RDW Standard Deviation 41.3 fL (36.4-46.3); Red Blood Count 4.49 M/uL (4.20-5.40); White Blood Count 11.23 K/ul (4.8-10.8)
[2022-08-14 07:20] LABS: BUN Creatinine Ratio 17.9 (10-20); Basophils # (auto) 0.07 K/uL (0-0.2); Basophils % (auto) 0.6 %; Calcium 9.2 mg/dl (8.6-10.3); Chol HDL Ratio 2.9 (0-5); Creatinine Clr Calc Pharmacy 52.7 ml/min; Eosinophils # (auto) 0.42 K/uL (0-0.50); Eosinophils % (auto) 3.7 %; Est GFR (African American) 96.2 ml/min; Immature Granulocytes # (auto) 0.04 K/uL (0.01-0.20); Immature Granulocytes % (auto) 0.4 %; Lymphocytes # (auto) 5.55 K/uL (1.2-3.4); Lymphocytes % (auto) 49.4 %; Monocytes # (auto) 0.65 K/uL (0.11-0.59); Monocytes % (auto) 5.8 %; Neutrophils % (auto) 40.1 %; Potassium 4.3 mmol/L (3.5-5.1); Smudge Cells Present
[2022-08-14] MEDS: PANTOprazole 40 MG TAB PO SCH (08:50)
[2022-08-14] MEDS: LOSARTAN POTASSIUM 50 MG TAB PO SCH (08:50)
[2022-08-14] MEDS: METOPROLOL SUCC 50MG EXT REL TAB PO SCH (08:50)
[2022-08-14] MEDS: ASPIRIN 81 MG CHEW PO SCH (08:50)
[2022-08-14] MEDS: ENOXAPARIN INJ 40 MG/0.4 ML SYR SQ SCH (08:51)
[2022-08-14] MEDS: CLOPIDOGREL BISULFATE 75 MG TAB PO SCH (08:51)
[2022-08-14] MEDS: INSULIN ASPART PER UNIT CHARGE SC SCH ×4 (08:51→20:47)
[2022-08-14] MEDS: amLODIPine BESYLATE 5 MG TAB PO SCH (08:51)
[2022-08-14] MEDS ORDERED: ATORVASTATIN 40 MG TAB PO SCH (09:00)
--- NOTE | 2022-08-14 09:16 | CT Scan Report ---
CT SCAN OF THE BRAIN WITHOUT IV CONTRAST CLINICAL HISTORY: Right-sided weakness. COMPARISON STUDY: CT of the brain dated 08/23/2022. TECHNIQUE: Unenhanced axial CT scan of the brain is performed from the vertex to the skull base. A do se lowering technique was utilized adhering to the principles of ALARA. CT DOSE: 537.48 mGy.cm FINDINGS: Brain parenchyma: There is age-related involutional change noting [id number] subcortical and pe riventricular microangiopathic disease. There is no hemorrhage, mass effect, or evidence of acute ter ritorial ischemia by CT criteria. Bell-white matter differentiation is preserved. No extra-axial flui d collection is seen. Ventricles, sulci, cisterns: Prominent secondary to involutional change. Intracranial vasculature: There is atherosclerotic calcification of the cavernous carotid and vertebr al arteries. Calvarium: Unremarkable. Sinuses and mastoids: The visualized paranasal sinuses are clear. The mastoid air cells are well pneu matized. Orbits: The bony orbits are grossly intact. IMPRESSION: There is no hemorrhage, mass effect, or evidence of acute territorial ischemia by CT juanis arias. No significant change yesterday. ACT 112: Negative or not required by law. Electronically signed by: Gerhard Orta M.D. 08/14/2022 9:14 AM
[2022-08-14 09:38] LABS: Estimated Average Glucose 183 mg/dl
--- NOTE | 2022-08-14 10:21 | Neurology Consultation ---
Date of Consultation August 14, 2022 Assessment & Plan (1) Hypoglycemia: (2) Acute right-sided weakness: (3) Diabetes mellitus type 2 in nonobese: (4) HTN (hypertension): (5) Neuropathy: Plan this patient has a longstanding history of type 2 diabetes and hypertension. She has been on 81 mg aspirin tablet prior to admission and no history of stroke. Her glucose has been aggressively managed She had a transient episode of right arm and leg weakness , August 13, likely secondary to hypoglycemia. Later on in the day she had other hypoglycemic symptoms resolved with glucose as well. CT scan of the head does show old small vessel ischemic disease but currently her neurologic examination is nonfocal and she is back to baseline. She does have signs of a peripheral neuropathy likely secondary to diabetes which is old/ stable. Recommendations: 1. normally, I would like to obtain an MRI of the brain (just to make sure we did not miss a small stroke ), however, given her recent pacemaker surgery she cannot get an MRI at this time. 2. Continue 81 mg aspirin tablet daily. 3. Discontinue clopidogrel 4. Avoid over control of glucose (management will be left to her other physicians). 5. The patient's total cholesterol is 96. Given this, plus her advanced age ( despite the slightly elevated triglycerides of 153 ) she is not a high dose statin candidate. I would lower her statin to a "regular" dose (to avoid risk of MAGNETIC OBSERVER hemorrhage). 6. There is no need for additional testing from a neurologic standpoint. Please contact me if I can be of further assistance on this case. Overall, I spent a total of 75 minutes with this case including review of carrie rds, review of CT films, direct evaluation the patient at bedside, and discussing the case with the patient and her son at bedside, and , including differential diagnosis and treatment options. History of Present Illness Reason for Consultation: patient is an 81-year-old, who I was asked to see at the request of Arlin Shi PA-C, for neurologic evaluation regarding TIA. Requesting Physician: Arlni Shi PA-C Attending Physician: Garfield Monroy MD History of Present Illness This patient has a longstanding history of type 2 diabetes with polyneuropathy and hypertension. She has a history of CLL and hypothyroidism. On July 28 of this year she underwent a left partial mastectomy for ductal carcinoma. At that time, they noted complete heart block. On August 02 she had a pacemaker placed. The patient was in her usual state of health when she went to bed on August 12. She woke up on August 13 at 7:00 a.m. and could not move her right arm or leg. Her left side was somewhat weak because of her previous surgical procedures and she really could not get out of bed. She ended up having incontinence in the bed because of this. Apparently she had normal mentation and recall of the event and no vision problems or speech issues. EMS personnel performed a BSG which was around 50. She was given glucose and felt "back to baseline" She was brought to the emergency room at 9:50 a.m. with a temperature of 37.2, pulse 68 regular, respiratory rate 20, blood pressure 197/76, and O2 saturation 97%. in the emergency room, neurologic examination was nonfocal and there was no weakness. CBC showed an elevated white count of 16, with a normal hemoglobin and hematocrit. Chem profile was unremarkable as well with a glucose of 75. liver profile was normal and TSH was 2.1. CT scan of the head was unremarkable except for some old small vessel ischemic changes. CT angiography of the head and neck were unremarkable with no significant vessel anomalies or stenoses. Later on in the day the patient became more lethargic and weak as well as "goofy" with changing speech and mentation. A BSG was 40 and glucose resolved her symptoms and she was back to baseline. She has had no further symptoms since admission. Currently she feels normal/baseline. Laboratory studies today reveal white count of 11 0.2 with a normal H&H. Chem profile is normal I am glucose is 73. Hemoglobin A1c is 8.0. Triglycerides were 153 and total cholesterol 96. urinalysis was unremarkable. Allergies Allergy/AdvReac Type Severity Reaction Status Date / Time erythromycin base Allergy Unknown gi upset Verified 07/28/22 16:25 Penicillins Allergy Unknown hives, rash Verified 07/28/22 16:25 Sulfa (Sulfonamide AdvReac upset Verified 07/28/22 16:25 Antibiotics) stomach Home Medications Medication Instructions Recorded Confirmed Type aspirin 81 mg chewable tablet 81 mg PO DAILY 12/30/18 08/13/22 History levothyroxine 50 mcg tablet 50 mcg PO DAILY 12/30/18 08/13/22 History losartan 100 mg tablet 100 mg PO DAILY 12/30/18 08/13/22 History metformin 500 mg tablet,extended 1,000 mg PO BID 12/30/18 08/13/22 History release 24 hr omeprazole 20 mg tablet,delayed 20 mg PO DAILY 12/30/18 08/13/22 History release pravastatin 40 mg tablet 40 mg PO DAILY 12/30/18 08/13/22 History amlodipine 2.5 mg tablet 2.5 mg PO DAILY 30 days #30 tabs 08/03/22 08/13/22 Rx dulaglutide 1.5 mg/0.5 mL 1.5 mg subcut WK 08/13/22 08/13/22 History subcutaneous pen injector (Trulicity) glipizide 5 mg tablet 10 mg PO BIDWMEAL 08/13/22 08/13/22 History metoprolol succinate 50 mg 50 mg PO DAILY 08/13/22 08/13/22 History tablet,extended release 24 hr Patient History Medical History (Updated 08/14/22 @ 10:11 by Del Whitlock MD) AV heart block CLL (chronic lymphocytic leukemia) Diabetes mellitus type 2 in nonobese Ductal carcinoma in situ (DCIS) of left breast High cholesterol History of chicken pox Hypothyroidism Neuropathy Surgical History History of cryosurgery to cervix d/t cervical erosion S/P cholecystectomy S/P left mastectomy S/P lumpectomy, left breast S/P oophorectomy right S/P placement of cardiac pacemaker S/P tonsillectomy S/P tubal ligation S/P wisdom tooth extraction Family History Grandmother (Paternal) Breast cancer Denies family history of Ovarian cancer Prostate cancer Colorectal cancer Social History Smoking Status: Never smoker Second Hand Exposure: No; Do You Dip or Chew Tobacco: No; Tobacco Cessation Education Requested by Patient: No Hx Alcohol Use: No Hx Substance Use: No Preferred Language: Sami Communication Ability: Effective Laborer Shaft Sinking Required: No Beliefs That Will Affect Care: None Current Living Situation: Alone Other Information That Helps Us Care for You: No Feels Safe at Home: Yes Safety Concerns: Feels Safe At This Time Assistive Devices: Cane and Walker Review of Systems Constitutional: no fever, no fatigue and no weakness Eyes: no diplopia, no eye pain and no worsening vision Ear, Nose, Mouth, Throat: no ear pain, no tinnitus, no hearing loss, no dizziness, no snoring, no hoarseness and no dysphagia Respiratory: no cough and no dyspnea Cardiovascular: no chest pain, no palpitations and no lightheadedness Gastrointestinal: no abdominal pain, no nausea and no vomiting Genitourinary: no dysuria, no urinary frequency and no urinary incontinence Musculoskeletal: no back pain, no neck pain, no radicular pain, no joint pain and no myalgia Integumentary: no rash and no lesions Neurologic: no gait abnormality, no localized weakness, no generalized weakness, no tingling, no numbness, no tremor(s), no abnormal movements, no headache(s), no abnormal speech, no confusion and no memory loss Psychiatric: no depression, no irritability, no anxiety, no difficulty concentrating, no confusion and no hallucinations Endocrine: no fatigue and no flushing Hematologic / Lymphatic: no easy bleeding and no easy bruising Allergy / Immunological: no urticaria and no problem reported Exam (Neuro) Physical Exam: The patient is right-handed. The patient is awake, alert, and attentive. Speech is normal without any aphasia or dysarthria. The patient can name objects, repeat phrases, and has normal spontaneous speech. Mentation and thought processes are intact, with orientation to person, place and time, and normal fund of knowledge. Attention and concentration are normal. Mood and affect are normal and appropriate. General appearance and grooming are normal. Short and long-term memory are intact. Pupils are 3 mm bilaterally and reactive to light. Extraocular eye muscles are intact without nystagmus. Visual acuity and visual mcginnis seem normal grossly to confrontation. There are no deficits to sensation in the face in all 3 distributions of the fifth cranial nerve bilaterally. Corneal reflexes are positive bilaterally. Facial strength and symmetry was normal bilaterally. Hearing seems normal bilaterally. Palate moves well without asymmetry. There is normal sternocleidomastoid and trapezius (shoulder shrug) strength bilaterally. Tongue is midline with good strength bilaterally. Neck has a full range of motion without discomfort. There are no cervical bruits bilaterally. Cervical, thoracic, and lumbar spine are nontender to palpation. Gait is narrow based, with good arm swing, turns, and stance. With outstretched arms there is no drift. There are no resting, postural, or action tremors. There is no ataxia with finger to nose testing. There is good facility in the hands. No other abnormal involuntary movements are noted. Motor strength is 5/5 diffusely in the arms bilaterally including deltoids, biceps, triceps, brachioradialis, wrist flexors and extensors, support services coordinator, and intrinsic hand muscles. Motor strength is 5/5 diffusely in the legs bilaterally including hip flexors, quadriceps, hamstrings, gastrocnemius, tibialis anterior, tibialis posterior, and Peroneii muscles. Toe extensors are normal and there is good bulk in the extensor digitorum brevis muscles bilaterally. The limbs have good tone without rigidity or spasticity. There is no atrophy noted in the muscles. Muscle bulk is normal, there is no tenderness to palpati on, no myotonia to percussion, and no fasciculations seen. Sensory examination is intact to touch and pin throughout all 4 limbs diffusely. Reflexes are 2/4 in the biceps, triceps, brachioradialis, and quadriceps tendons bilaterally. Achilles tendon reflexes are absent bilaterally. There is no clonus bilaterally. Toes are downgoing with plantar stimulation bilaterally. Peripheral pulses are present and of normal quality distally in all 4 limbs. There is no peripheral edema noted in the limbs. Results & Data Vital Signs (Past 12 Hours) Vital Signs Temp Pulse Pulse Resp BP Pulse Ox O2 Del Method 08/14/22 07:25 36.4 C L 73 18 144/75 H 93 Room Air 08/14/22 07:16 71 08/14/22 03:15 36.9 C 69 17 127/77 98 Room Air 08/13/22 22:40 36.8 C 71 17 114/68 96 Room Air PG Care Time/CCT Total # of Minutes Spent Total Time Spent with Patient: Total time spent is greater than 50% in coordination of care (as documented) at patient's floor/unit and/or counseling patient: Coding Level of Care Code 49404 INT INP/OBS CARE 3/75MIN Diagnoses Hypoglycemia E16.2 Acute right-sided weakness R53.1 Diabetes mellitus type 2 in nonobese E11.9 HTN (hypertension) I10 Neuropathy G62.9
[2022-08-14] MEDS ORDERED: PHARMACY GLYCEMIC MGMT CONSULT PRN (12:15)
[2022-08-14] MEDS ORDERED: LANTUS PER UNIT CHARGE SQ ONE (12:45)
--- NOTE | 2022-08-14 14:13 | Pharmacy Report ---
Pharmacy Glycemic Short Note 2 - Date of Service August 14, 2022 - Glycemic Short BSG Results (Last 24 hours): 08/13/22 08/13/22 08/13/22 16:29 17:04 17:54 Glucose POC Glucose 40 L* 181 H 160 H 08/13/22 08/14/22 08/14/22 20:19 05:44 07:58 Glucose 73 POC Glucose 134 H 107 H 08/14/22 08/14/22 08/14/22 12:01 12:02 13:04 Glucose POC Glucose 338 H* 324 H* 314 H* 08/14/22 08/14/22 13:05 13:06 Glucose POC Glucose 351 H* 326 H* OUTPATIENT ANTIDIABETIC REGIMEN: * Trulicity 1.5 mg SQ weekly * glipizide 10 mg BIDM (reported patient may have been taking 15 mg BIDM) * metformin 1000 mg PO BIDM * HbA1C = 8.0% (08/14/22) ASSESSMENT: * Ms Plata is an 81 y/o F with a PMH of T2DM who presents with stroke-like symptoms. * BSG on admission was 40 mg/dL - may have been due to decreased PO intake in the setting of taking glipizide. * Fasting BSG today is 107 mg/dL. Lunch BSG was 324 mg/dL. * Pharmacy consulted after lunch BSG. * Will start with Lantus 10 units BID (lower doses available for lower BSGs). * Tightened Novolog. Patient will most likely require tighter carbohydrate coverage as she is on a sulfonylurea at home. PLAN FOR INPATIENT GLYCEMIC CONTROL: * Hold outpatient oral diabetes medications * Basal insulin * Lantus 10 units SQ BID (hold if BSG < 120 mg/dL; 5 units if BSG 120-160 mg/dL) * Bolus insulin * NovoLog per scale ACHS or Q6hrs while NPO * Goal Range: Low 110 mg/dL - High 140 mg/dL * Correction Factor: 30 mg/dL/unit * Nutritional / Prandial insulin per carb ratio of 1 unit per 8 grams CHO consumed
--- NOTE | 2022-08-14 17:08 | Hospitalist Progress Note ---
Date of Service August 14, 2022 Assessment & Plan (1) Acute right-sided weakness: Plan: per admitting service notes with addendum: 81 y/o female with a recently diagnosed DCIS of left breast s/p partial mastectomy, complete heart block s/p PPM placement on 08/02/22, DM2, CLL, HTN, and hypothyroidism who presented to the ED this morning with TIA symptoms, specifically RUE and RLE weakness. Since being in the ED these symptoms are resolving and pt is nearly back to baseline. Initial CT negative for CVA. - Admit to PCU for monitoring overnight including Q4 neuro checks - Repeat ECHO - MRI brain for further evaluation - PT/OT consults - passed bedside speech eval in the ED so will defer speech eval at this time - Consult neurology for additional recommendations - Change statin to Lipitor 80 mg - Dual anti-platelet therapy - continue aspirin, add Plavix - Labs in AM - CBC, BMP, A1c and lipids per stroke protocol - Fall precautions, aspiration precautions 08/14: Repeat CT head: No acute CVA process Symptoms resolved Acute CVA, ruled out Discussed with neurology service, symptoms likely secondary to hypoglycemia (2) Diabetes mellitus type 2 in nonobese: Plan: Holding outpatient meds while admitted, especially with episode of hypoglycemia this morning - Insulin sliding scale - BSG ACHS 08/14: Patient admitted with hypoglycemia 40s Currently in the 300s A1c 8.0 Pharmacy glycemic service consulted Per daughter, they have noticed additional pills of glipizide in patient's medication box Hypoglycemia likely secondary to unintentional glipizide overdose We will consult drum stock clerk and family medicine physician (3) Hypothyroidism: (4) HTN (hypertension): (5) Ductal carcinoma in situ (DCIS) of left breast: (6) CLL (chronic lymphocytic leukemia): Plan Continue other home medications as appropriate. Code Status: Full code DVT Prophylaxis: SCDs, Lovenox Disposition: PT and OT recommending discharge to home when medically stable We will request housing case manager to refer patient to home health nursing for assistance with medications and blood glucose checks Admission and Anticipated Discharge Date Admission Date: August 13, 2022 Subjective Follow-up for right-sided weakness, hypoglycemia, etc. Seen resting in chair, comfortable, not in distress States she feels much better overall Right-sided weakness resolved No other focal neurologic symptoms no chest pain, dyspnea, palpitations, dizziness No other symptoms Review of Systems Review of Systems: all noted and negative except for above Physical Exam Physical Exam: General- oriented x 3, not in distress, speaks in sentences with no effort or accessory muscle use Eyes- anicteric Neck- no JVD Lungs- clear breath sounds bilaterally, no rales/wheezes Heart- normal rate, regular rhythm; no murmurs Pacemaker on the left upper chest wall Abdomen- normal bowel sounds, nondistended, soft, nontender Extremities- no pretibial edema, no calf tenderness Neuro- alert, oriented x 3; no gross focal neurologic deficits Skin- warm & dry Results & Data Results & Data Vital Signs (Past 12 Hours) Vital Signs Temp Pulse Pulse Resp BP Pulse Ox O2 Del Method 08/14/22 16:17 101 H 08/14/22 07:25 36.4 C L 73 18 144/75 H 93 Room Air 08/14/22 07:16 71 all noted and reviewed including below
[2022-08-14] MEDS ORDERED: LANTUS PER UNIT CHARGE SQ SCH (21:00)
[2022-08-15] MEDS: LEVOTHYROXINE SODIUM 50 MCG TABLET PO SCH (05:41)
[2022-08-15 06:28] LABS: Hematocrit (blood only) 38.6 % (37.0-47.0); Hemoglobin 13.2 g/dl (12.0-16.0); Mean Corpuscular Hgb Conc 34.2 g/dL (32.0-36.0); Mean Corpuscular Volume 84.8 fL (80.0-100.0); Mean Platelet Volume 10.8 fL (9.4-12.4); Platelet Count 244 K/uL (130-400); RDW Coefficient of Variation 13.5 % (11.5-14.5); RDW Standard Deviation 41.7 fL (36.4-46.3); Red Blood Count 4.55 M/uL (4.20-5.40)
[2022-08-15 06:46] LABS: BUN Creatinine Ratio 23.5 (10-20); Calcium 9.2 mg/dl (8.6-10.3); Creatinine Clr Calc Pharmacy 41.7 ml/min; Est GFR (Non-African American) 64.7 ml/min; Potassium 4.4 mmol/L (3.5-5.1)
[2022-08-15 07:35] LABS: Basophils # (auto) 0.06 K/uL (0-0.2); Basophils % (auto) 0.4 %; Echinocytes 1+; Eosinophils # (auto) 0.43 K/uL (0-0.50); Eosinophils % (auto) 3.2 %; Immature Granulocytes # (auto) 0.04 K/uL (0.01-0.20); Immature Granulocytes % (auto) 0.3 %; Lymphocytes # (auto) 6.32 K/uL (1.2-3.4); Lymphocytes % (auto) 46.5 %; Monocytes # (auto) 0.89 K/uL (0.11-0.59); Monocytes % (auto) 6.5 %; Neutrophils # (auto) 5.86 K/uL (1.40-6.50); Neutrophils % (auto) 43.1 %; Smudge Cells Present
[2022-08-15] MEDS: INSULIN ASPART PER UNIT CHARGE SC SCH ×2 (08:40→12:23)
[2022-08-15] MEDS: amLODIPine BESYLATE 5 MG TAB PO SCH (08:41)
[2022-08-15] MEDS: ASPIRIN 81 MG CHEW PO SCH (08:41)
[2022-08-15] MEDS: METOPROLOL SUCC 50MG EXT REL TAB PO SCH (08:41)
[2022-08-15] MEDS: LOSARTAN POTASSIUM 50 MG TAB PO SCH (08:41)
[2022-08-15] MEDS: PANTOprazole 40 MG TAB PO SCH (08:41)
[2022-08-15] MEDS: ENOXAPARIN INJ 40 MG/0.4 ML SYR SQ SCH (08:42)
[2022-08-15] MEDS ORDERED: LANTUS PER UNIT CHARGE SQ ONE (09:00)
--- NOTE | 2022-08-15 18:08 | Hospitalist Progress Note ---
Date of Service August 15, 2022 Assessment & Plan (1) Acute right-sided weakness: Plan: per admitting service notes with addendum: 81 y/o female with a recently diagnosed DCIS of left breast s/p partial mastectomy, complete heart block s/p PPM placement on 08/02/22, DM2, CLL, HTN, and hypothyroidism who presented to the ED this morning with TIA symptoms, specifically RUE and RLE weakness. Since being in the ED these symptoms are resolving and pt is nearly back to baseline. Initial CT negative for CVA. - Admit to PCU for monitoring overnight including Q4 neuro checks - Repeat ECHO - MRI brain for further evaluation - PT/OT consults - passed bedside speech eval in the ED so will defer speech eval at this time - Consult neurology for additional recommendations - Change statin to Lipitor 80 mg - Dual anti-platelet therapy - continue aspirin, add Plavix - Labs in AM - CBC, BMP, A1c and lipids per stroke protocol - Fall precautions, aspiration precautions 08/[address] head: No acute CVA process Symptoms resolved Acute CVA, ruled out Discussed with neurology service, symptoms likely secondary to hypoglycemia (2) Diabetes mellitus type 2 in nonobese: Plan: Holding outpatient meds while admitted, especially with episode of hypoglycemia this morning - Insulin sliding scale - BSG ACHS 08/15 Patient admitted with profound hypoglycemia 40s Diabetic medications held [facility], patient blood glucose in the 300s Given insulin regimen A1c 8.0 Pharmacy glycemic service consulted Per daughter, they have noticed additional pills of glipizide in patient's me dication box Hypoglycemia likely secondary to unintentional glipizide overdose Consulted asthma educator and hospital cleaning specialist Discharge plan: Decrease glipizide to 5 mg twice a day Continue usual metformin and Trulicity Patient and family advised BSG checks twice a day, record and present readings to primary care physician on follow-up within 1 week (3) Hypothyroidism: (4) HTN (hypertension): (5) Ductal carcinoma in situ (DCIS) of left breast: (6) CLL (chronic lymphocytic leukemia): Plan Continue other home medications Code Status: Full code DVT Prophylaxis: SCDs, Lovenox Disposition: PT and OT recommending discharge to home Home health services arranged Discharge to home Follow-up with PCP in 1 week plan of care discussed with patient and her daughter in detail and at length all questions answered they are understanding, agreeable, comfortable with the plan of care Admission and Anticipated Discharge Date Admission Date: August 14, 2022 Subjective Follow-up for right-sided weakness in the setting of profound hypoglycemia, etc. Seen resting in bed, comfortable, not in distress, in good spirits Patient's daughter at the bedside visiting States she feels much better overall Back to her baseline No recurrence of weakness No other new neurologic deficits No fevers or chills No other new symptoms States she is ready for discharge today Review of Systems Review of Systems: all noted and negative except for above Physical Exam Physical Exam: General- oriented x 3, not in distress, speaks in sentences with no effort or accessory muscle use Eyes- anicteric Neck- no JVD Lungs- clear breath sounds bilaterally, no rales/wheezes Heart- normal rate, regular rhythm; no murmurs Abdomen- normal bowel sounds, nondistended, soft, nontender Extremities- no pretibial edema, no calf tenderness Neuro- alert, oriented x 3; no gross focal neurologic deficits Skin- warm & dry Results & Data Results & Data Vital Signs (Past 12 Hours) Vital Signs Temp Pulse Pulse Resp BP Pulse Ox O2 Del Method 08/15/22 13:16 36.6 C 81 19 109/65 93 08/15/22 11:13 36.6 C 81 19 109/65 93 Room Air 08/15/22 08:10 84 08/15/22 07:17 36.7 C 105 H 17 117/76 97 Room Air all noted and reviewed including below
--- NOTE | 2022-08-15 18:42 | Discharge Summary ---
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 Pt was recently admitted to this facility 07/28-08/03/22 after she underwent left partial mastectomy and was noted to be in complete heart block so referred to the ED. Since being discharged after pacemaker placement, pt reports that she has overall been doing well other than ongoing left shoulder discomfort related PPM placement. No significant discomfort from partial mastectomy - had post-op visit with surgery and was told everything is healing well. When pt woke up this morning, she was unable to get out of bed due to new onset right arm and right leg weakness. Associated urinary incontinence b/c couldn't get up to make it to the bathroom. About an hour or two later, she called for her daughter for help as the symptoms had persistent. At that time, she stated that she couldn't move her right hand but her daughter said that she was actually moving her right fingers and wasn't aware/couldn't feel it. Speech wasn't slurred but it also wasn't normal per family. No facial droop noted. Daughter called 911 and pt was brought to the ED. EMS said she was hypoglycemic (50s) on initial evaluation and pt was given glucose gel. Since arriving in the ED, movement in right side seems to be returning and she feels like she's back to baseline. She was able to eat applesauce in the ED without issue swallowing. Taking baby aspirin and statin daily. No prior TIA/CVA or DC previously. She does note that she has not been as ambulatory as usual since recent discharge and has been lying more on her right side due to recent procedures affecting the left. 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 Since being in the ED these symptoms are resolving and pt is nearly back to baseline. Initial CT negative for CVA. - Admit to PCU for monitoring overnight including Q4 neuro checks - Repeat ECHO - MRI brain for further evaluation - PT/OT consults - passed bedside speech eval in the ED so will defer speech eval at this time - Consult neurology for additional recommendations - Change statin to Lipitor 80 mg - Dual anti-platelet therapy - continue aspirin, add Plavix - Labs in AM - CBC, BMP, A1c and lipids per stroke protocol - Fall precautions, aspiration precautions 08/[address] head: No acute CVA process Symptoms resolved Acute CVA, ruled out Discussed with neurology service, symptoms likely secondary to hypoglycemia (2) Diabetes mellitus type 2 in nonobese: Holding outpatient meds while admitted, especially with episode of hypoglycemia this morning - Insulin sliding scale - BSG ACHS 08/15 Patient admitted with profound hypoglycemia 40s Diabetic medications held Hospital #2, patient blood glucose in the 300s Given insulin regimen A1c 8.0 Pharmacy glycemic service consulted Per daughter, they have noticed additional pills of glipizide in patient's medication box Hypoglycemia likely secondary to unintentional glipizide overdose Consulted perinatal educator and residential specialist Discharge plan: Decrease glipizide to 5 mg twice a day Continue usual metformin and Trulicity Patient and family advised BSG checks twice a day, record and present readings to primary care physician on follow-up within 1 week (3) Hypothyroidism: (4) HTN (hypertension): (5) Ductal carcinoma in situ (DCIS) of left breast: (6) CLL (chronic lymphocytic leukemia): Plan Continue other home medications Code Status: Full code DVT Prophylaxis: SCDs, Lovenox Disposition: PT and OT recommending discharge to home Home health services arranged Discharge to home Follow-up with PCP in 1 week plan of care discussed with patient and her daughter in detail and at length all questions answered they are understanding, agreeable, comfortable with the plan of care Discharge Exam General- oriented x 3, not in distress, speaks in sentences with no effort or accessory muscle use Eyes- anicteric Neck- no JVD Lungs- clear breath sounds bilaterally, no rales/wheezes Heart- normal rate, regular rhythm; no murmurs Abdomen- normal bowel sounds, nondistended, soft, nontender Extremities- no pretibial edema, no calf tenderness Neuro- alert, oriented x 3; no gross focal neurologic deficits Skin- warm & dry Updated Medication List Medication Instructions Recorded Confirmed Type aspirin 81 mg chewable tablet 81 mg PO DAILY 12/30/18 08/13/22 History levothyroxine 50 mcg tablet 50 mcg PO DAILY 12/30/18 08/13/22 History losartan 100 mg tablet 100 mg PO DAILY 12/30/18 08/13/22 History metformin 500 mg tablet,extended 1,000 mg PO BID 12/30/18 08/13/22 History release 24 hr omeprazole 20 mg tablet,delayed 20 mg PO DAILY 12/30/18 08/13/22 History release pravastatin 40 mg tablet 40 mg PO DAILY 12/30/18 08/13/22 History amlodipine 2.5 mg tablet 2.5 mg PO DAILY 30 days #30 tabs 08/03/22 08/13/22 Rx dulaglutide 1.5 mg/0.5 mL 1.5 mg subcut WK 08/13/22 08/13/22 History subcutaneous pen injector (Trulicity) metoprolol succinate 50 mg 50 mg PO DAILY 08/13/22 08/13/22 History tablet,extended release 24 hr glipizide 5 mg tablet 5 mg PO BIDWMEAL #30 tabs 08/15/22 08/13/22 Rx Hospital Stay Data Consultations 08/13/22 14:18 ED Decision to Admit Stat 08/13/22 16:03 Consult Neurology Routine Diagnostic Imagining Performed 08/13/22 10:24 CT angio head wo/w Stat CT angio neck with con Stat 08/14/22 08:10 CT head/brain wo con Routine Pending Results Patient Have Any Pending Studies at Discharge: No Discharge Instructions Given to Patient (Per Discharging Provider) PLEASE REFER TO YOUR NEW MEDICATION LIST AND FOLLOW INSTRUCTIONS CAREFULLY. YOUR NEW MEDICATION INCLUDE: Decrease glipizide from 10 mg twice a day to 5 mg twice a day. PLEASE CALL YOUR PRIMARY CARE PHYSICIAN OR RETURN TO THE ER IF WITH WORSENING OF SYMPTOMS, INCLUDING Blood sugar readings persistently below 90 or above 200, weakness, altered mental status, etc. FOLLOW UP WITH PRIMARY CARE PHYSICIAN OUTLINED ABOVE. Total Time Total Time Spent Total Time Spent (In Minutes): >30 minutes
== END 2022-08-15 13:49 | disposition home health service (06) ==
LOC: ED 09:41 → 4W 09:41 → SUATTDRO 12:15 → 4W 17:55

== ENCOUNTER 2023-04-09 08:45 | Inpatient (IN) ==
[2023-04-09] MEDS ORDERED: SODIUM CHLORIDE 0.9% 500 ML IV SCH (09:30)
--- NOTE | 2023-04-09 09:31 | Emergency Department Note ---
Impression & Plan Hypoxia ADMIT ED Provider Note HPI: History obtained from patient. The patient is a 82-year-old female who presents emergency department with her son at the bedside over concern for ambulatory dysfunction and multiple falls over the past several days. This morning the patient's son states that he found her on the floor next to the bed. He states the patient seemed confused and did not know that she was on the floor. He states that she does have some confusion at baseline. On arrival here to the ED, the patient is hemodynamically stable, she is noted to have borderline oxygen saturation at 92% without increased work of breathing. Patient does not have any focal deficits on arrival. ROS: - Per HPI Differential Diagnosis: Mechanical fall, intracranial hemorrhage to include subdural hematoma, epidural hematoma, skull fracture, urinary tract infection, pneumonia, sepsis, dehydration/AMINA, amongst other potential pathologies. *Outpatient medications and allergy history reviewed. PE: General: Alert HEENT: Normocephalic, trachea midline Eyes: Extraocular eye movement is intact, no scleral erythema Pulmonary: Clear to auscultation bilaterally, no wheezing Cardio: Regular rate and rhythm GI: Abdomen is soft to palpation : No suprapubic tenderness MSK: No evidence of trauma or malformation of the extremities, no edema Skin: No evidence of rash Neuro: Alert, no focal deficits Psychiatric: Cooperative INDEPENDENT INTERPRETATIONS: remelter: (As interpreted by myself): - An order was placed for continuous cardiac monitoring - Patient was noted to be in paced with a rate of 72 EKG: (As interpreted by myself): Rate: 71 Rhythm: Paced rhythm Intervals: Normal limits ST changes: No ST elevation Time: 0855 Chest x-ray: (As interpreted by myself): Right lobe pneumonia Interventions provided in ED: -IV fluid bolus, IV cefepime, IV doxycycline Medical Decision Making: Patient presented to the emergency department after being found down on the ground by her son. On arrival here to the ED the patient is alert, she is in no acute distress. She does have some confusion at baseline according to her son. She is pleasantly confused on my exam. Lab work shows a leukocytosis of 16.1, hemoglobin is normal, platelet count is normal, CMP shows a mild hyponatremia 132, glucose is elevated at 268, serum bicarbonate level is normal. Lactic acid is elevated at 2.2, magnesium is low at 1.3. Procalcitonin is mildly elevated at 0.55. Patient did have some episodes of hypoxia at 88% on room air while here in the ED and was placed on 2 L nasal cannula oxygen with good improvement. Chest x-ray per my interpretation does show evidence of a right middle lobe pneumonia. Urinalysis shows infection with nitrite positive and leukocyte esterase trace as well as significant pyuria. Patient was treated with IV ceftriaxone and additionally with IV doxycycline for atypical coverage for possible pneumonia. CT imaging of the head was obtained that does not show any evidence of any acute intracranial process. I discussed all the above findings with the patient and her son at the bedside. Given her hypoxia, pneumonia, leukocytosis, as well as finding of UTI and some increased confusion I do feel it is appropriate for her to be admitted for initiation of IV antibiotics. Case was discussed with the on-call midlevel provider for [facility], Noemy Shi PA-C, and the patient was placed for admission to the service of Dr. Armstrong. Consultants/Discussions held with other healthcare providers: -Jena Shi PA-C, Hospitalist service (Dr. Armstrong) Disposition discussion held by myself with: -Patient and son at bedside Diagnosis: 1. Hypoxia, acute 2. Community-acquired pneumonia, acute, right midlung 3. Leukocytosis, acute 4. Hyponatremia, acute 5. Lactic acidosis, acute 6. Ketonuria, acute 7. Urinary tract infection, acute 8. Hypomagnesemia, acute Critical care time: 45 minutes -Stabilization of patient with hypoxia with oxygen saturations to 89% on room air requiring supplemental oxygen for correction, time spent at the bedside, initiation of antibiotics for pneumonia and urinary tract infection, discussion with other healthcare providers and arrangement of admission Disposition: Admission Saad Matthews DO Emergency Medicine Past Med/Surg History Medical History (Updated 04/09/23 @ 14:12 by Saad Matthews DO) Ductal carcinoma in situ (DCIS) of left breast CLL (chronic lymphocytic leukemia) Hypothyroidism Diabetes mellitus type 2 in nonobese AV heart block High cholesterol Neuropathy History of chicken pox Surgical History (Updated 10/05/22 @ 09:29 by Shahnaz Best RN) H/O right breast biopsy cyst; benign; 15 years ago S/P placement of cardiac pacemaker S/P lumpectomy, left breast S/P left mastectomy History of cryosurgery to cervix d/t cervical erosion S/P oophorectomy right S/P tonsillectomy S/P cholecystectomy S/P wisdom tooth extraction S/P tubal ligation Family History (Updated 10/05/22 @ 09:31 by Shahnaz Best RN) Grandmother (Paternal) Breast cancer Mother CHF (congestive heart failure) Father COPD (chronic obstructive pulmonary disease) Heart disease Emphysema lung Denies family history of Ovarian cancer Prostate cancer Colorectal cancer Social History (Updated 10/05/22 @ 09:33 by Shahnaz Best RN) Smoking Status: Never smoker Second Hand Exposure: Yes; Do You Dip or Chew Tobacco: No; Hx Alcohol Use: No Hx Substance Use: No Preferred Language: Hungarian Communication Ability: Effective Hand Method Lasting Machine Operator Required: No Beliefs That Will Affect Care: None Current Living Situation: Alone 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; 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 Feels Safe at Home: Yes Assistive Devices: Cane Allergies Allergies Allergy/AdvReac Type Severity Reaction Status Date / Time erythromycin base Allergy Unknown gi upset Verified 04/09/23 12:09 Penicillins Allergy Unknown hives, rash Verified 04/09/23 12:09 Sulfa (Sulfonamide AdvReac upset Verified 04/09/23 12:09 Antibiotics) stomach Home Meds Home Medications Medication Instructions Recorded Confirmed aspirin 81 mg chewable tablet 81 mg PO DAILY 12/30/18 04/09/23 levothyroxine 50 mcg tablet 50 mcg PO DAILY 12/30/18 04/09/23 losartan 100 mg tablet 100 mg PO DAILY 12/30/18 04/09/23 pravastatin 40 mg tablet 40 mg PO DAILY 12/30/18 04/09/23 dulaglutide 1.5 mg/0.5 mL 1.5 mg subcut WK 08/13/22 04/09/23 subcutaneous pen injector (Trulicity) metoprolol succinate 50 mg 50 mg PO DAILY 08/13/22 04/09/23 tablet,extended release 24 hr multivitamin 1 tab PO DAILY 10/05/22 04/09/23 omeprazole 20 mg tablet,delayed 20 mg PO DAILY PRN Acid Reflux 10/05/22 04/09/23 release metformin 500 mg tablet,extended 1,000 mg PO BID 10/23/22 04/09/23 release 24 hr fluoride (sodium) 1.1 % dental 1 applic dental DAILY 11/06/22 04/09/23 cream (SF 5000 Plus) cholecalciferol (vitamin D3) 125 125 mcg PO DAILY 03/06/23 04/09/23 mcg (5,000 unit) capsule mirtazapine 15 mg tablet 15 mg PO HS 03/06/23 04/09/23 repaglinide 0.5 mg tablet 0.5 mg PO DAILY 03/06/23 04/09/23 tamoxifen 20 mg tablet 20 mg PO DAILY 03/06/23 04/09/23 Previous Rx's Medication Instructions Recorded amlodipine 2.5 mg tablet 2.5 mg PO DAILY 30 days #30 tabs 08/03/22 Results & Data (ED) Vital Signs Vital Signs - 24 hr 04/09/23 08:57 04/09/23 09:07 04/09/23 09:39 Temperature 36.7 C Temperature Source Oral Pulse Rate 80 79 Pulse Rate [Apical] Pulse Rhythm [Apical] Respiratory Rate 18 Respiratory Depth Blood Pressure 155/64 H Blood Pressure [Left Arm] Blood Pressure Mean 94 Blood Pressure Mean [Left Arm] Pulse Oximetry 92 90 Oxygen Delivery Method Room Air Room Air Oxygen Flow Rate Sepsis Recent Fever Within 48 Hours No Sepsis New/Unexplained Change in Mental Status No Sepsis Action Taken by Nursing No Action Required 04/09/23 10:57 04/09/23 12:00 04/09/23 12:35 Temperature Temperature Source Pulse Rate Pulse Rate [Apical] 89 78 87 Pulse Rhythm [Apical] Respiratory Rate 18 18 18 Respiratory Depth Blood Pressure Blood Pressure [Left Arm] 136/95 156/85 H Blood Pressure Mean Blood Pressure Mean [Left Arm] 108 108 Pulse Oximetry 95 92 91 Oxygen Delivery Method Nasal Cannula Room Air Room Air Oxygen Flow Rate 2 Sepsis Recent Fever Within 48 Hours Sepsis New/Unexplained Change in Mental Status Sepsis Action Taken by Nursing 04/09/23 13:05 04/09/23 13:19 04/09/23 13:20 Temperature Temperature Source Pulse Rate 103 H Pulse Rate [Apical] 71 Pulse Rhythm [Apical] Regular Respiratory Rate 18 Respiratory Depth Normal Blood Pressure Blood Pressure [Left Arm] 144/67 H Blood Pressure Mean Blood Pressure Mean [Left Arm] 92 Pulse Oximetry 89 L 95 Oxygen Delivery Method Room Air Nasal Cannula Oxygen Flow Rate 2 Sepsis Recent Fever Within 48 Hours Sepsis New/Unexplained Change in Mental Status Sepsis Action Taken by Nursing Laboratory Data 04/09/23 09:10 04/09/23 09:10 Lab Results 04/09/23 04/09/23 04/09/23 Range/Units 09:10 10:06 10:11 WBC 16.11 H (4.8-10.8) K/ul RBC 4.73 (4.20-5.40) M/uL Hgb 14.1 (12.0-16.0) g/dl Hct 40.8 (37.0-47.0) % MCV 86.3 (80.0-100.0) fL MCH 29.8 (25.0-34.0) pg MCHC 34.6 (32.0-36.0) g/dL RDW Std Deviation 43.2 (36.4-46.3) fL RDW Coeff of Karrie 13.6 (11.5-14.5) % Plt Count 188 (130-400) K/uL MPV 11.8 (9.4-12.4) fL Immature Gran % (Auto) 1.0 % Neut % (Auto) 75.8 % Lymph % (Auto) 16.9 % Leon % (Auto) 6.1 % Eos % (Auto) 0.0 % Baso % (Auto) 0.2 % Neut # (Auto) 12.21 H (1.40-6.50) K/uL Lymph # (Auto) 2.73 (1.20-3.40) K/uL Leon # (Auto) 0.98 H (0.11-0.59) K/uL Eos # (Auto) 0.00 (0.00-0.50) K/uL Baso # (Auto) 0.03 (0.00-0.20) K/uL Immature Gran # (Auto) 0.16 (0.01-0.20) K/uL Sodium 132 L (136-145) mmol/L Potassium 4.4 (3.5-5.1) mmol/L Chloride 98 (98-107) mmol/L Carbon Dioxide 22 (21-32) mmol/L Anion Gap 12 H (3-11) BUN 22 (6-23) mg/dl Creatinine 0.93 (0.6-1.2) mg/dl Est Cr Clr Drug Dosing 39.7 ml/min Est GFR ( Amer) 66.8 ml/min Est GFR (Non-Af Amer) 57.6 ml/min BUN/Creatinine Ratio 23.7 H (10-20) Glucose 268 H (70-99(Fasting)) mg/dl Lactate 2.2 H* (0.4-2.0) mmol/L Calcium 8.8 (8.6-10.3) mg/dl Magnesium 1.3 L (1.7-2.4) mg/dl Total Bilirubin 0.4 (0.2-1.0) mg/dl Direct Bilirubin 0.1 (0-0.2) mg/dl AST TNP ALT 34 (7-52) U/L Alkaline Phosphatase TNP Total Protein 6.9 (6.0-8.3) gm/dl Albumin 3.0 L (3.4-5.0) gm/dl Procalcitonin 0.55 H (0-0.5) ng/ml Urine Color Urine Appearance (Clear) Urine pH (4.5-7.5) Ur Specific [place] (1.000-1.030) Urine Protein (Negative) Urine Glucose (UA) (Negative) Urine Ketones (Negative) Urine Blood (Negative) Urine Nitrite (Negative) Urine Bilirubin (Negative) Urine Urobilinogen (Negative) Ur Leukocyte Esterase (Negative) Urine WBC (Auto) (0-5) /hpf Urine RBC (Auto) (0-4) /hpf U Hyaline Cast (Auto) (0-5) /lpf U Epithel Cells (Auto) (0-5) /lpf Urine Bacteria (Auto) (Negative) 04/09/23 04/09/23 Range/Units 10:45 12:06 WBC (4.8-10.8) K/ul RBC (4.20-5.40) M/uL Hgb (12.0-16.0) g/dl Hct (37.0-47.0) % MCV (80.0-100.0) fL MCH (25.0-34.0) pg MCHC (32.0-36.0) g/dL RDW Std Deviation (36.4-46.3) fL RDW Coeff of Karrie (11.5-14.5) % Plt Count (130-400) K/uL MPV (9.4-12.4) fL Immature Gran % (Auto) % Neut % (Auto) % Lymph % (Auto) % Leon % (Auto) % Eos % (Auto) % Baso % (Auto) % Neut # (Auto) (1.40-6.50) K/uL Lymph # (Auto) (1.20-3.40) K/uL Leon # (Auto) (0.11-0.59) K/uL Eos # (Auto) (0.00-0.50) K/uL Baso # (Auto) (0.00-0.20) K/uL Immature Gran # (Auto) (0.01-0.20) K/uL Sodium (136-145) mmol/L Potassium (3.5-5.1) mmol/L Chloride (98-107) mmol/L Carbon Dioxide (21-32) mmol/L Anion Gap (3-11) BUN (6-23) mg/dl Creatinine (0.6-1.2) mg/dl Est Cr Clr Drug Dosing ml/min Est GFR ( Amer) ml/min Est GFR (Non-Af Amer) ml/min BUN/Creatinine Ratio (10-20) Glucose (70-99(Fasting)) mg/dl Lactate 2.9 H* (0.4-2.0) mmol/L Calcium (8.6-10.3) mg/dl Magnesium (1.7-2.4) mg/dl Total Bilirubin (0.2-1.0) mg/dl Direct Bilirubin (0-0.2) mg/dl AST ALT (7-52) U/L Alkaline Phosphatase Total Protein (6.0-8.3) gm/dl Albumin (3.4-5.0) gm/dl Procalcitonin (0-0.5) ng/ml Urine Color Yellow Urine Appearance Clear (Clear) Urine pH 5.5 (4.5-7.5) Ur Specific [place] 1.026 (1.000-1.030) Urine Protein 2+ H (Negative) Urine Glucose (UA) 3+ H (Negative) Urine Ketones 2+ H (Negative) Urine Blood 2+ H (Negative) Urine Nitrite Positive A (Negative) Urine Bilirubin Negative (Negative) Urine Urobilinogen Negative (Negative) Ur Leukocyte Esterase Trace H (Negative) Urine WBC (Auto) >30 H (0-5) /hpf Urine RBC (Auto) 0-4 (0-4) /hpf U Hyaline Cast (Auto) 1-5 (0-5) /lpf U Epithel Cells (Auto) 0-5 (0-5) /lpf Urine Bacteria (Auto) 4+ H (Negative) Administered Medications Discontinued Medications Sodium Chloride (Nss) 500 mls @ 999 mls/hr IV .Q31M MICHELA Stop: 04/09/23 10:00 Last Infusion: 04/09/23 11:17 Dose: Infused Documented By: Admin: 04/09/23 10:30 Dose: 999 mls/hr Documented By: OL Ceftriaxone Sodium (Rocephin) 2,000 mg in 50 mls @ 100 mls/hr IV NOW STA Stop: 04/09/23 11:57 Last Infusion: 04/09/23 12:33 Dose: Infused Documented By: Admin: 04/09/23 12:00 Dose: 100 mls/hr Documented By: OL Doxycycline Hyclate 100 mg/ (Dextrose) 100 mls @ 50 mls/hr IV NOW STA Stop: 04/09/23 13:45 Last Admin: 04/09/23 12:29 Dose: 50 mls/hr Documented By: OL Sodium Chloride (Nss) 1,000 mls @ 999 mls/hr IV .Q1H1M ONE Stop: 04/09/23 13:28 Last Infusion: 04/09/23 14:12 Dose: Infused Documented By: Admin: 04/09/23 13:05 Dose: 999 mls/hr Documented By: KV Sodium Chloride (Nss) 500 mls @ 999 mls/hr IV .Q31M ONE Stop: 04/09/23 12:58 Last Infusion: 04/09/23 13:45 Dose: Infused Documented By: Admin: 04/09/23 13:05 Dose: 999 mls/hr Documented By: KV Magnesium Sulfate/Dextrose (Magnesium Sulfate / D5w) 1 gm in 100 mls @ 200 mls/hr IV Q30M MICHELA Stop: 04/09/23 13:49 Last Infusion: 04/09/23 13:44 Dose: Infused Documented By: Admin: 04/09/23 13:14 Dose: 200 mls/hr Documented By: KV Sodium Chloride (Nss) 1,000 mls @ 75 mls/hr IV .[id number] MICHELA Stop: 04/10/23 02:49 Last Admin: 04/09/23 13:56 Dose: Not Given Documented By: OL Imaging Data Radiologist's Impression: Chest X-Ray 04/09/23 09:29 XR chest 1V portable HISTORY: Sepsis COMPARISON: Chest 08/13/2022. FINDINGS: No pneumothorax. No pleural effusions. The cardiac silhouette remains mildly enlarged. There is a left-sided dual-chamber pacemaker. The left lung is clear. There is a patchy right upper lobe airspace opacity which is new from the prior study. IMPRESSION: There is a new patchy right upper lobe airspace opacity. This likely represents a pneumonia. Recommend one month chest x-ray follow-up to ensure resolution. ACT 112: Negative or not required by law. Electronically signed by: Davy Arriaga M.D. 04/09/2023 9:[address] 04/09/23 09:29 CT SCAN OF THE BRAIN WITHOUT IV CONTRAST CLINICAL HISTORY: Fall. Head injury. COMPARISON STUDY: CT of the brain dated 08/14/2022. TECHNIQUE: Unenhanced axial CT scan of the brain is performed from the vertex to the skull base. A dose lowering technique was utilized adhering to the principles of ALARA. CT DOSE: 703.85 mGy.cm FINDINGS: Brain parenchyma: There is age-related involutional change noting moderate subcortical and periventricular microangiopathic disease. There is no hemorrhage, mass effect, or evidence of acute territorial ischemia by CT criteria. Bell-white matter differentiation is preserved. No extra-axial fluid collection is seen. Ventricles, sulci, cisterns: Prominent secondary to involutional change. Intracranial vasculature: There is atherosclerotic calcification of the cavernous carotid and vertebral arteries. Calvarium: The skeletal structures are osteopenic. No depressed calvarial fracture is seen. Sinuses and mastoids: The visualized paranasal sinuses are clear. The mastoid air cells are well pneumatized. Orbits: The bony orbits are grossly intact. There are bilateral ocular lens implants. IMPRESSION: There is no hemorrhage, mass effect, or evidence of acute territorial ischemia by CT criteria. ACT 112: Negative or not required by law. Electronically signed by: Gerhard Orta M.D. 04/09/2023 10:54 AM Shoulder X-Ray 04/09/23 09:30 XR shoulder RT min 2V routine CLINICAL HISTORY: Fall. Right shoulder pain. COMPARISON STUDY: Right shoulder 07/26/2016. FINDINGS: There is an old, healed right humeral neck fracture. No acute fracture or dislocation within the right shoulder. The right clavicle appears intact. Patchy right upper lobe airspace opacity again noted. Moderate degenerative changes within the right shoulder. Left-sided pacemaker. IMPRESSION: 1. Old, healed right humeral neck fracture again noted. 2. No acute fracture or dislocation within the right shoulder. 3. Patchy right upper lobe airspace opacities are better appreciated on the same day chest x-ray. ACT 112: Negative or not required by law. Electronically signed by: Davy Arriaga M.D. 04/09/2023 9:57 AM Discharge Plan Visit Data Chief Complaint: Fall Stated Complaint: FALL, SHOULDER PAIN ED Provider: Saad Matthews Discharge Problem: Hypoxia Forms Stand Alone Forms: My [facility] [employer] Prescriptions Prescriptions: No Action mirtazapine 15 mg tablet 15 mg PO HS tamoxifen 20 mg tablet 20 mg PO DAILY cholecalciferol (vitamin D3) 125 mcg (5,000 unit) capsule 125 mcg PO DAILY repaglinide 0.5 mg tablet 0.5 mg PO DAILY Rx Instructions: administer within 30 minutes of a meal or snack multivitamin Tablet 1 tab PO DAILY fluoride (sodium) [SF 5000 Plus] 1.1 % cream 1 applic dental DAILY aspirin 81 mg tablet,chewable 81 mg PO DAILY levothyroxine 50 mcg tablet 50 mcg PO DAILY losartan 100 mg tablet 100 mg PO DAILY pravastatin 40 mg tablet 40 mg PO DAILY omeprazole 20 mg tablet,delayed release (DR/EC) 20 mg PO DAILY PRN (Reason: Acid Reflux) metformin 500 mg tablet extended release 24 hr 1,000 mg PO BID metoprolol succinate 50 mg tablet extended release 24 hr 50 mg PO DAILY Trulicity 1.5 mg/0.5 mL pen injector 1.5 mg SUBCUT WK Rx Instructions: Sunday amlodipine 2.5 mg tablet 2.5 mg PO DAILY 30 Days Qty: 30 0RF Referrals Referrals: Annabella Victoria DO [Primary Care Provider] -
--- OUTSIDE RECORDS SUMMARY | 2023-04-09 09:43 | External Medical Summary | Summary of Care ---
Author Name Unknown Organization [facility] Address [address] [place] [address] Phone [phone] Care Team Providers Care Wet Process Assistant Head Miller Name Role Phone Katie Duncan DO Primary Care Provider [phone] Reason for Visit * Reason Onset Date Comments Medication Refill 04/03/2023 Encounter Details Date Type Department Care Team (Late st Contact Info) Description 04/03/2023 Refill Family Practice [facility] [address] [facility] [address] Katie Duncan DO [address] [facility] [place] [address] Adjustment disorder with depressed mood; HTN, goal below 140/90 Allergies Active Allergy Reactions Criticality Noted Date Comments Pollen Other (Please comment) 03/22/2016 Itchy, inflamed eyes Penicillins Rash 03/22/2016 Sulfa Antibiotics Nausea/vomiting 03/22/2016 documented as of this encounter (statuses as of 04/03/2023) Medications Medication Sig Dispensed Refills Start Date End Date Status Omeprazole Magnesium 20 MG Oral Tablet Delayed Release (PriLOSEC OTC) Take 1 Tablet by mouth as needed for Heartburn. 0 Active Trulicity 1.5 MG/0.5ML Subcutaneous Solution Pen-injector (Dulaglutide)Indicat ions:Type 2 diabetes mellitus with hemoglobin A1c goal of less than 8.0% ([facility]) Inject under the skin 1.5 mg once a week . Do not start before April 03, 2022. 6 mL 3 04/03/2022 Active OneTouch Verio Reflect w/Device KitIndications:Type 2 diabetes mellitus with hemoglobin A1c goal of less than 8.0% ([facility]) Use as directed. Test Blood sugar one to two times per day. E11.9 1 Kit 0 07/03/2022 Active Macular Health Formula Oral Capsule Take by mouth. 0 Active Levothyroxine Sodium 50 MCG Oral Tablet (Levoxyl)Indications :Acquired hypothyroidism (at least 30 min prior to breakfast or other meds) 90 Tablet 3 09/06/2022 Active Aspirin 81 MG Oral Tablet Chewable Take 1 Tablet by mouth in the morning. with food.. 90 Tablet 3 09/06/2022 Active Losartan Potassium 100 MG Oral Tablet (Cozaar)Indications: HTN, goal below 140/90 Take 1 Tablet by mouth in the morning. 90 Tablet 3 09/06/2022 Active amLODIPine Besylate 2.5 MG Oral Tablet (Norvasc)Indications :HTN, goal below 140/90 Take 1 Tablet by mouth in the morning. 90 Tablet 3 09/06/2022 Active Metoprolol Succinate ER 50 MG Oral Tablet Extended Release 24 Hour (toPROL XL)Indications:HTN, goal below 140/90 Take 1 Tablet by mouth in the morning. 90 Tablet 3 09/06/2022 Active Pravastatin Sodium 40 MG Oral Tablet (Pravachol)Indicatio ns:Type 2 diabetes mellitus without complication, without long-term current use of insulin ([facility]),Dyslipidemia Take 1 Tablet by mouth in the morning. 90 Tablet 3 09/06/2022 Active Multivitamin Adults 50+ Oral Tablet Take 1 Tablet by mouth daily. 0 Active metFORMIN HCl ER 500 MG Oral Tablet Extended Release 24 Hour (Glucophage XR)Indications:Type 2 diabetes mellitus with hemoglobin A1c goal of less than 8.0% ([facility]),Type 2 diabetes mellitus without complication, without long-term current use of insulin ([facility]) Take 2 Tablets by mouth 2 times a day with morning and evening meals. 360 Tablet 3 10/09/2022 Active Sodium Fluoride 1.1 % Dental Cream [place] onto teeth every night at bedtime. 0 Active Tamoxifen Citrate 20 MG Oral TabletIndications:In filtrating ductal carcinoma of left breast (HCC),CLL (chronic lymphocytic leukemia) ([facility]) Take 1 Tablet by mouth in the morning. 90 Tablet 5 12/13/2022 Active OneTouch Delica Lancets 33GIndications:Type 2 diabetes mellitus with hemoglobin A1c goal of less than 8.0% ([facility]) Test Blood sugar two to three times per day. E11.9 300 Each 3 12/18/2022 Active Dulaglutide 1.5 MG/0.5ML Subcutaneous Solution Pen-injector (Trulicity) Inject 1.5 mg under the skin once a week. 2 mL 5 12/22/2022 Active Repaglinide 0.5 MG Oral Tablet (Prandin)Indications :Type 2 diabetes mellitus with hemoglobin A1c goal of less than 8.0% ([facility]),Type 2 diabetes mellitus without complication, without long-term current use of insulin ([facility]) Take 1 Tablet by mouth daily before breakfast. 90 Tablet 3 02/12/2023 Active OneTouch Verio In Vitro Strip (Glucose Blood)Indications:Ty pe 2 diabetes mellitus with hemoglobin A1c goal of less than 8.0% ([facility]) Test Blood sugar two to three times per day. E11.9 300 Strip 3 03/13/2023 Active D3 High Potency 125 MCG (5000 UT) Oral Capsule TAKE 1 CAPSULE BY MOUTH AT NOON 0 03/02/2023 Active Viactiv Calcium Plus D 650-12.5-40 MG-MCG Oral Tablet Chewable (Calcium-Vitamin D-Vitamin K) Take by mouth. 0 Active Mirtazapine 15 MG Oral Tablet (Remeron)Indications :Adjustment disorder with depressed mood Take 1 Tablet by mouth at bedtime. 30 Tablet 5 04/03/2023 Active Mirtazapine 15 MG Oral Tablet (Remeron)Indications :Adjustment disorder with depressed mood Take 1 Tablet by mouth at bedtime. 30 Tablet 5 11/24/2022 Discontinue d(Refill) Hospital, Clinic, or Other Facility Administered Medication Ordered Dose Route Frequency Start Date End Date Status vitamin b-12 (Cyanocobalamin) inj 1,000 mcgIndications:B12 deficiency 1000 mcg IM [id number] 11/24/2022 10/26/2023 Active documented as of this encounter (statuses as of 04/03/2023) Active Problems Problem Noted Date Diagnosed Date Osteoporosis with symptom management only 2022 Infiltrating ductal carcinoma of left breast Age-related cataract of both eyes 12/08/2021 DM type 2 with diabetic peripheral neuropathy CLL (chronic lymphocytic leukemia) 11/04/2018 B12 deficiency 10/02/2017 Mild aortic sclerosis 10/19/2016 Overview: Echo 02/19/15 Type 2 diabetes mellitus wit h hemoglobin A1c goal of less than 8.0% 10/19/2016 Obesity, Class I, BMI 30.0-34.9 (see actual BMI) 10/19/2016 Seasonal allergic rhinitis due to pollen 017 Overview: Had allergy immunotherapy 2 yrs ago-2013 Recurrent sinus infections 05/25/2016 Overview: 05/23>Saw ENT in [place]; [place] 2 yrs ago- moved [place] -02/19--zpak,pred 03/22, pred 04/21;doxy 05/23--not on nasacort daily-resume and + claritin Preoperative general physical examination 2016 Overview: 07/21-l-m risk--0.3/-1.7--rpt 3 yrs Type 2 diabetes mellitus wit hout complication, without long-term current use of insulin 04/10/2016 HTN, goal below 140/90 04/10/2016 Dyslipidemia 04/10/2016 Acquired hypothyroidism 04/10/2016 documented as of this encounter (statuses as of 04/03/2023) Resolved Problems Problem Noted Date Diagnosed Date Resolved Date Mammographic microcalcification 10/19/2016 08/13/2018 Overview: 12/21--scattered fibroglandular densities (25% - 50% fibroglandular), dystrophic ca+-rpt 1 yr Closed fracture of proximal end of right humerus with routine healing 10/19/2016 07/23/2018 Overview: 07/25/16 Encounter for screening mamm ogram for breast cancer 05/25/2016 07/23/2018 Overview: 05/2015 Ribera Screen for colon cancer 05/25/201607/05 Overview: csope-- 10/05/14- nl, gr 1 IH> At [place]--rpt 10 yrs documented as of this encounter (statuses as of 04/03/2023) Immunizations Name Administration Dates Next Due COVID-19 mRNA, LNP-s, No Pre serve, 2-Dose Series (Moderna) 07/06/2020,06/02/2020 COVID-19, mRNA, LNP-s, PF, B ooster, 100mcg/0.5mg (Moderna) 10/28/2021,03/02/2021 Covid-19, Mrna, Lnp-s, Pf, B ivalent, 30 Mcg, IM, 12 yrs and above (Pfizer) 02/03/2022 Pneumococcal Conjugate Vacc, 13 Valent (Prevnar) 05/19/2014 Pneumococcal Polysaccharide PPV23 (Pneumovax) ,05/26/2002 Seasonal Influenza, Quadrivalent Hd (Fluzone Hd) 02/04/2021 Seasonal Influenza, Quadrivalent Hd, 65+ Yrs Seasonal Influenza, Quadrivalent, No Preserve, M dck 02/13/2020 TDAP (age 11 and older)(Adacel) 05/26/2015 Varicella Zoster Vaccine (Adult) 02/01/2007 Zoster Vaccine Recombinant (Shingrix) 03/25/2019 ,11/26/2018 documented as of this encounter Social History Tobacco Use Types Packs/Day Years Used Date Smoking Tobacco: Never Smokeless Tobacco: Never Alcohol Use Standard Drinks/Week Comments Yes 0 (1 standard drink = 0.6 oz pur e alcohol) rarely PHQ-2 Answer Date Recorded PHQ Adult Total Score 7 09/06/2022 Hunger Vital Sign Answer Date Recorded Worried About Running Out of Food in the Last Ye ar Never true 12/03/2019 Ran Out of Food in the Last Year Never true 12/03/2019 Sex and Gender Information Value Date Recorded Sex Assigned at Female 08/13/2018 10:03 AM EDT Gender Identity Female 08/13/2018 10:03 AM EDT Sexual Orientation Straight 08/13/2018 10 :03 AM EDT Job Start Date Occupation Industry Not on file Not on file Not on file documented as of this encounter Miscellaneous Notes * Telephone Encounter - Katie Duncan DO - 04/03/2023 2:14 PM ESTSigned Prescriptions: Disp Refills Mirtazapine 15 MG Oral Tablet (Remeron) 30 Tab*5 Sig: Take 1 Tablet by mouth at bedtime. Authorizing Provider: KATIE DUNCAN * Telephone Encounter - Indigo Mueller LPN - 04/03/2023 1:44 PM ESTPending Prescriptions: Disp Refills Mirtazapine 15 MG Oral Tablet (Remeron) 30 Tab*5 Sig: Take 1 Tablet by mouth at bedtime. * Telephone Encounter - Danay Christopher OSA - 04/03/2023 12:53 PM EST Did you pend patient's preferred pharmacy and medication before forwarding?yes Pharmacy: [facility] [place] [id number] [facility] Pending Prescriptions: Disp Refills Mirtazapine 15 MG Oral Tablet (Remeron) 30 Tab*5 Sig: Take 1 Tablet by mouth at bedtime. Last Visit: 03/14/2023 (in office), Visit date not found (telemedicine) Next Visit: 08/29/2023 If no future appointments scheduled, and last appointment is greater than a year ago, please schedule patient for a follow-up appointment Last date the medication was ordered: 11/24/2022 Is this request for a controlled substance?No Urine Drug Screen:No results found for this or any previous visit. Patient Phone Numbers Labs: Lab Results Component Value Date/Time CREAT 0.9 03/14/2023 01:47 PM CREAT 0.8 03/02/2020 11:20 AM POTASSIUM 4.2 03/14/2023 01:47 PM POTASSIUM 4.7 03/02/2020 11:20 AM TSH 3.79 03/14/2023 01:47 PM TSH 2.13 08/20/2019 09:24 AM LDLCALC UNINTERPRETABLE RESULT 10/17/2018 10:16 AM LDLDIRECT 61 08/09/2021 08:28 AM LDLDIRECT 63 10/17/2018 10:16 AM ALT 29 03/14/2023 01:47 PM ALT 29 03/02/2020 11:20 AM HGBA1C 8.3 (H) 03/14/2023 01:47 PM HGBA1C 9.2 (H) 02/12/2023 10:15 AM HGBA1C 7.1 (H) 11/25/2019 09:24 AM documented in this encounter Plan of Treatment Upcoming Encounters Date Type Department Care Team (Late st Contact Info) Description 05/14/2023 3:30 PM EST Office Visit Pharmacy, [facility] [address] [facility] [place] [address] Pharmacist2, [facility] [address] [facility] [place] [address] 05/17/2023 4:00 PM EST Telemedicine Orthopaedics [facility] [address] [facility] [place] [address] Dano Dueñas MD [address] [place] [phone] 05/30/2023 11:00 AM EST Imaging Radiology [facility] [address] [place] [address] 06/04/2023 2:30 PM EST Nutrition Services Nutrition, [facility] [address] [facility] [place] [address] Monica Perry, RDN [address] [place] [address] 06/13/2023 10:30 AM EST Office Visit General Surgery, [facility] [address] [place] [address] Myke Pulliam MD [address] [place] [address] 06/20/2023 11:00 AM EST Immunization/Injection Hematology/Oncology Treatment, [place] [address] [place] [address] Nurse, Med [address] [place] [address] 08/29/2023 5:00 PM EDT Office Visit Family Practice [facility] [address] [place] [address] Katie Duncan DO [address] [place] [address] 09/12/2023 11:00 AM EDT Laboratory Laboratory [facility] [place] [address] [place] [phone] [place], Lab Scenery [address] [facility] [place] [address] 09/19/2023 12:30 PM EDT Office Visit Hematology/Oncology [facility] [place] [address] [place] [phone] Macey Cruz MD [address] [place] [address] 09/25/2023 9:30 AM EDT Cardiac Studies Cardiology, [facility] [address] [place] [address] [facility] [address] [place] [address] Health Maintenance Due Date Last Done Comments Hepatitis B (1 of 3 - Risk 3-dose series) 2001 Diabetic Eye Exam 08/15/2022 08/15/2021, , 07/15/2019, Additional history exists COVID-19 Vaccine ( season) 2023 02/03/2022, 10/28/2021, 03/02/2021, Additional history exists Influenza Vaccine (FLU shot) (#1) 2023 02/16/2022, 02/04/2021, 02/13/2020, Additional history exists Depression Screening 09/07/2023 09/06/2022 Diabetic Foot Exam 09/07/2023 09/06/2022, 0 08/10/2021, 11/03/2020, Additional history exists HbA1c 09/12/2023 03/14/2023, 10/0 01/2023, 08/28/2022, Additional history exists B-12 03/14/2024 03/14/2023, 0705/2022, 08/09/2021, Additional history exists GFR 03/14/2024 03/14/2023, 080 01/2023, 09/11/2022, Additional history exists TSH 03/14/2024 03/14/2023, 100 10/2021, 11/02/2020, Additional history exists Albumin/Creatinine Ratio 03/15/2024 023, 05/10/2021, 09/27/2017, Additional history exists DXA Scan 10/18/2024 10/18/2022, 07/06, 02/19/2012 DTaP,Tdap,and Td Vaccines (2 - Td or Tdap) 05/26/2025 05/26/2015 Pneumococcal Vaccine: 65+ Years Completed 05/19/2014, 09/17/2012, 05/26/2002 Zoster Vaccines Completed 03/25/2019, 11/05, 02/01/2007 VITAMIN D LEVEL ONCE IN A LIFETIME-USE SMARTSET# [id number] Completed 11/14/2022 GARDASIL-HPV IMMUNIZATION SERIES Aged Out No longer eligible based on patient's age to complete this topic MENINGOCOCCAL (MENACTRA/MENVEO) Aged Out No longer eligible based on patient's age to complete this topic documented as of this encounter Medical Devices Implanted Type Area Building Carpenter Helper Device Identifier Shelf Expiration Date Model / Serial / Lot Lens Intraoc 19.0 - [id number] - [id number] Implanted:Qty: 1 on 12/13/2021 by Mitchell Guzman MD at [facility] Left: Eye [employer] 06/06/2026 [id number] / [id number] / [id number] Lens Intraoc 19.0 - [id number] - [id number] Implanted:Qty: 1 on 12/27/2021 by Mitchell Guzman MD at [facility] Right: Eye [employer] 06/06/2026 [id number] / [id number] / [id number] documented as of this encounter Visit Diagnoses Diagnosis Adjustment disorder with depressed mood HTN, goal below 140/90 Unspecified essential hypertension documented in this encounter Advance Directives Latest Code Status on File Code Status Date Activated Date Inactivated Comments No Code 12/27/2021 6:34 AM 12/27/2021 1:09 PM This order reflects the patients wishes and were consensually agreed upon. Question Answer Comments Discussion of Advance Directives occurred with: Patient Does the patient have a Living Will? No Does the patient have Health Care Power of Party Director? No Code Status History Code Status Date Activated Date Inactivated Comments No Code 12/13/2021 6:43 AM 12/13/2021 1:23 PM This or tim reflects the patients wishes and were consensually agreed upon. Question Answer Comments Discussion of Advance Directives occurred with: Patient Does the patient have a Living Will? No Does the patient have Health Care Power of Party Director? No Care Teams Wet Process Assistant Head Miller Relationship Specialty Start Date End Date Katie Duncan DO [address] [place] [id number] PCP - General Family Medicine 07/19/17 documented as of this encounter
--- OUTSIDE RECORDS SUMMARY | 2023-04-09 09:44 | External Medical Summary | Summary of Care ---
Author Name Unknown Organization [facility] Address [address] [place] [address] Phone [phone] Care Team Providers Care Base Filler Operator Name Role Phone Annabella Victoria DO Primary Care Provider [phone] Encounter Details Date Type Department Care Team (Late st Contact Info) Description 03/18/2023 Telephone Family Practice [facility] [email or web address] [facility] [place] [id number] Annabella Victoria DO [email or web address] [facility] [place] [address] Allergies Active Allergy Reactions Criticality Noted Date Comments Pollen Other (Please comment) 03/22/2016 Itchy, inflamed eyes Penicillins Rash 03/22/2016 Sulfa Antibiotics Nausea/vomiting 03/22/2016 documented as of this encounter (statuses as of 03/18/2023) Medications Medication Sig Dispensed Refills Start Date End Date Status Omeprazole Magnesium 20 MG Oral Tablet Delayed Release (PriLOSEC OTC) Take 1 Tablet by mouth as needed for Heartburn. 0 Active Trulicity 1.5 MG/0.5ML Subcutaneous Solution Pen-injector (Dulaglutide)Indicati ons:Type 2 diabetes mellitus with hemoglobin A1c goal of less than 8.0% ([facility]) Inject under the skin 1.5 mg once a week . Do not start before April 03, 2022. 6 mL 3 04/03/2022 Active OneTouch Verio Reflect w/Device KitIndications:Type 2 diabetes mellitus with hemoglobin A1c goal of less than 8.0% ([facility]) Use as directed. Test Blood sugar one to two times per day. E11.9 1 Kit 0 07/03/2022 Active Macular Health Formula Oral Capsule Take by mouth. 0 Active Levothyroxine Sodium 50 MCG Oral Tablet (Levoxyl)Indications: Acquired hypothyroidism (at least 30 min prior to breakfast or other meds) 90 Tablet 3 09/06/2022 Active Aspirin 81 MG Oral Tablet Chewable Take 1 Tablet by mouth in the morning. with food.. 90 Tablet 09/06/2022 Active Losartan Potassium 100 MG Oral Tablet (Cozaar)Indications:H TN, goal below 140/90 Take 1 Tablet by mouth in the morning. 90 Tablet 3 09/06/2022 Active amLODIPine Besylate 2.5 MG Oral Tablet (Norvasc)Indications: HTN, goal below 140/90 Take 1 Tablet by mouth in the morning. 90 Tablet 3 09/06/2022 Active Metoprolol Succinate ER 50 MG Oral Tablet Extended Release 24 Hour (toPROL XL)Indications:HTN, goal below 140/90 Take 1 Tablet by mouth in the morning. 90 Tablet 3 09/06/2022 Active Pravastatin Sodium 40 MG Oral Tablet (Pravachol)Indication s:Type 2 diabetes mellitus without complication, without long-term current use of insulin ([facility]),Dyslipidemia Take 1 Tablet by mouth in the morning. 90 Tablet 3 09/06/2022 Active Multivitamin Adults 50+ Oral Tablet Take 1 Tablet by mouth daily. 0 Active metFORMIN HCl ER 500 MG Oral Tablet Extended Release 24 Hour (Glucophage XR)Indications:Type 2 diabetes mellitus with hemoglobin A1c goal of less than 8.0% ([facility]),Type 2 diabetes mellitus without complication, without long-term current use of insulin ([facility]) Take 2 Tablets by mouth 2 times a day with morning and evening meals. 360 Tablet 3 10/09/2022 Active Sodium Fluoride 1.1 % Dental Cream [place] onto teeth every night at bedtime. 0 Active Mirtazapine 15 MG Oral Tablet (Remeron)Indications: Adjustment disorder with depressed mood Take 1 Tablet by mouth at bedtime. 30 Tablet 5 11/24/2022 Active Tamoxifen Citrate 20 MG Oral TabletIndications:Inf iltrating ductal carcinoma of left breast ([facility]),CLL (chronic lymphocytic leukemia) ([facility]) Take 1 Tablet by mouth in the morning. 90 Tablet 5 12/13/2022 Active OneTouch Delica Lancets 33GIndications:Type 2 diabetes mellitus with hemoglobin A1c goal of less than 8.0% ([facility]) Test Blood sugar two to three times per day. E11.9 300 Each 3 12/18/2022 Active Dulaglutide 1.5 MG/0.5ML Subcutaneous Solution Pen-injector (Trulicity) Inject 1.5 mg under the skin once a week. 2 mL 5 12/22/2022 Active Repaglinide 0.5 MG Oral Tablet (Prandin)Indications: Type 2 diabetes mellitus with hemoglobin A1c goal of less than 8.0% ([facility]),Type 2 diabetes mellitus without complication, without long-term current use of insulin ([facility]) Take 1 Tablet by mouth daily before breakfast. 90 Tablet 3 02/12/2023 Active OneTouch Verio In Vitro Strip (Glucose Blood)Indications:Typ e 2 diabetes mellitus with hemoglobin A1c goal of less than 8.0% ([facility]) Test Blood sugar two to three times per day. E11.9 300 Strip 3 03/13/2023 Active D3 High Potency 125 MCG (5000 UT) Oral Capsule TAKE 1 CAPSULE BY MOUTH AT NOON 0 03/02/2023 Active Viactiv Calcium Plus D 650-12.5-40 MG-MCG Oral Tablet Chewable (Calcium-Vitamin D-Vitamin K) Take by mouth. 0 Active Cefdinir 300 MG Oral Capsule (Omnicef)Indications: Acute cystitis without hematuria Take 1 Capsule by mouth in the morning and 1 Capsule before bedtime. Do all this for 7 days. For 10 days.. 14 Capsule 0 03/18/2023 03/25/2023 Active Hospital, Clinic, or Other Facility Administered Medication Ordered Dose Route Frequency Start Date End Date Status vitamin b-12 (Cyanocobalamin) inj 1,000 mcgIndications:B12 deficiency 1000 mcg IM [id number] 11/24/2022 10/26/2023 Active documented as of this encounter (statuses as of 03/18/2023) Active Problems Problem Noted Date Diagnosed Date [...] sinus infections 05/25/2016 Overview: 05/23>Saw ENT in [place]; CT 2 yrs ago- moved [place] -02/19--zpak,pred 03/22, pred 04/21;doxy 05/23--not on nasacort daily-resume and + claritin Preoperative general physical examination 2016 Overview: 07/21-l-m risk--0.3/-1.7--rpt 3 yrs Type 2 diabetes mellitus wit hout complication, without long-term current use of insulin 04/10/2016 HTN, goal below 140/90 04/10/2016 Dyslipidemia 04/10/2016 Acquired hypothyroidism 04/10/2016 documented as of this encounter (statuses as of 03/18/2023) Resolved Problems Problem Noted Date Diagnosed Date [...] csope-- 10/05/14- nl, gr 1 IH> At [facility]--rpt 10 yrs documented as of this encounter (statuses as of 03/18/2023) Immunizations Name Administration Dates Next Due COVID-19 [...] on file documented as of this encounter Plan of Treatment Upcoming Encounters Date Type Department Care Team (Late st Contact Info) Description 03/19/2023 3:30 PM EST Office Visit Pharmacy, [facility] [place] [address] [place] [address] Pharmacist2, [facility] [address] [place] [address] 03/21/2023 2:30 PM EST Office Visit Hematology/Oncology [facility] [address] [place] [address] Macey Cruz MD [address] [place] [address] 03/27/2023 11:45 AM EST Office Visit Cardiology, [facility] [place] [address] Kimmy López, [address] [address] 05/17/2023 4:00 PM EST Telemedicine Orthopaedics [facility] [place] [address] Dano Dueñas MD [address] [place] [phone] 05/30/2023 11:00 AM EST Imaging Radiology [facility] [facility] [address] [facility] [place] [address] 06/04/2023 2:30 PM EST Nutrition Services Nutrition, [facility] [address] [facility] [place] [address] Monica Perry, LEON [address] [place] [address] 06/13/2023 10:30 AM EST Office Visit General Surgery, [facility] [address] [place] [address] Myke Pulliam MD [address] [place] [address] 06/20/2023 11:00 AM EST Immunization/Injection Hematology/Oncology Treatment, [place] [address] [place] [address] Nurse, Med [address] [place] [address] 08/29/2023 5:00 PM EDT Office Visit Family Practice [facility] [address] [place] [address] Annabella Victoria DO [address] [place] [address] 09/25/2023 9:30 AM EDT Cardiac Studies Cardiology, [facility] [address] [place] [address] [facility] [address] [place] [address] Health Maintenance Due Date Last Done Comments [...] 09/11/2022, Additional history exists TSH 03/14/2024 03/14/2023, 10/2021, 11/02/2020, Additional history exists Albumin/Creatinine Ratio 03/15/2024 023, 05/10/2021, 09/27/2017, Additional history exists DXA Scan 10/18/2024 10/18/2022, 07/06, 02/19/2012 DTaP,Tdap,and Td Vaccines (2 - Td or Tdap) 05/26/2025 05/26/2015 Pneumococcal Vaccine: 65+ Years Completed 05/19/2014, 09/17/2012, 05/26/2002 Zoster Vaccines Completed 03/25/2019, 11/05, 02/01/2007 VITAMIN D LEVEL ONCE IN A LIFETIME-USE SMARTSET# [id number] Completed 11/14/2022 GARDASIL-HPV IMMUNIZATION SERIES Aged Out No longer eligible based on patient's age to complete this topic MENINGOCOCCAL (MENACTRA/MENVEO) Aged Out No longer eligible based on patient's age to complete this topic documented as of this encounter Medical Devices Implanted Type Area Dyeing Machine Back Tender Device Identifier Shelf Expiration Date Model / Serial / Lot Lens Intraoc 19.0 - [id number] - [id number] Implanted:Qty: 1 on 12/13/2021 by Mitchell Guzman MD at OR [facility] Left: Eye [employer] 06/06/2026 [id number] / [id number] / [id number] Lens Intraoc 19.0 - [id number] - [id number] Implanted:Qty: 1 on 12/27/2021 by Mitchell Guzman MD at OR [facility] Right: Eye [employer] 06/06/2026 [id number] / [id number] / [id number] documented as of this encounter Visit Diagnoses Diagnosis Acute cystitis without hematuria- Primary Acute cystitis documented in this encounter Advance Directives Latest Code Status on File Code Status Date Activated Date Inactivated Comments No Code 12/27/2021 6:34 AM 12/27/2021 1:09 PM This order reflects the patients wishes and were consensually agreed upon. Question Answer Comments Discussion of Advance Directives occurred with: Patient Does the patient have a Living Will? No Does the patient have Health Care Power of Management Technician? No Code Status History Code Status Date Activated Date Inactivated Comments No Code 12/13/2021 6:43 AM 12/13/2021 1:23 PM This or tim reflects the patients wishes and were consensually agreed upon. Question Answer Comments Discussion of Advance Directives occurred with: Patient Does the patient have a Living Will? No Does the patient have Health Care Power of Management Technician? No Care Teams Base Filler Operator Relationship Specialty Start Date End Date Annabella Victoria DO [address] [facility] [place] [address] PCP - General Family Medicine 07/19/17 documented as of this encounter
--- OUTSIDE RECORDS SUMMARY | 2023-04-09 09:44 | External Medical Summary | Summary of Care ---
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 [facility] Comments Left shoulder impingement Status post left breast cancer requiring mastectomy and radiation treatment Rotator cuff program scapular stabilizing exercises 2 times week for 4-6 weeks Reason for Visit * Reason Comments Joint Pain Left shoulder * Evaluate & Treat - Unlimited Visits (Within 10 days (routine)) - Pending Review Specialty Diagnoses / Procedures Referred By Ally grimaldo Referred To Contact Orthopaedic Surgery / Orthopedics Diagnoses Chronic left shoulder pain Annabella Victoria DO [address] [facility] [place] [address] Referral ID Status Reason Start Date Expiration Date Visits Requested Visits Authorized [id number] Pending Review Specialty Services Required 03/14/[phone] Encounter Details Date Type Department Care Team (Late st Contact Info) Description 03/15/2023 1:30 PM EST Office Visit Orthopaedics [facility] [address] [place] [address] Dano uDeñas MD [address] [place] [phone] Nontraumatic complete tear of left rotator cuff*; 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 0 Active Trulicity 1.5 MG/0.5ML Subcutaneous Solution Pen-injector (Dulaglutide)Indicati ons:Type 2 diabetes mellitus with hemoglobin A1c goal of less than 8.0% (HCC) Inject under the skin 1.5 mg once a week . Do not start before April 03, 2022. 6 mL 3 04/03/2022 Active OneTouch Verio Reflect w/Device KitIndications:Type 2 diabetes mellitus with hemoglobin A1c goal of less than 8.0% (HCC) Use as directed. Test Blood sugar one [...] complication, without long-term current use of insulin ([facility]),Dyslipidemia Take 1 Tablet by mouth in the morning. 90 Tablet 3 09/06/2022 Active Multivitamin Adults 50+ Oral Tablet Take 1 Tablet by mouth daily. 0 Active metFORMIN HCl ER 500 MG Oral Tablet Extended Release 24 Hour (Glucophage XR)Indications:Type 2 diabetes mellitus with hemoglobin A1c goal of less than 8.0% ([facility]),Type 2 diabetes mellitus without complication, without long-term current use of insulin ([facility]) Take 2 Tablets by mouth 2 times a day with morning and evening meals. 360 Tablet 3 10/09/2022 Active Sodium Fluoride 1.1 % Dental Cream [place] onto teeth every night at bedtime. 0 Active Mirtazapine 15 MG Oral Tablet (Remeron)Indications: Adjustment disorder with depressed mood Take 1 Tablet by mouth at bedtime. 30 Tablet 5 11/24/2022 Active Tamoxifen Citrate 20 MG Oral TabletIndications:Inf iltrating ductal carcinoma of left breast ([facility]),CLL (chronic lymphocytic leukemia) ([facility]) Take 1 Tablet by mouth in the morning. 90 Tablet 5 12/13/2022 Active OneTouch Delica Lancets 33GIndications:Type 2 diabetes mellitus with hemoglobin A1c goal of less than 8.0% ([facility]) Test Blood sugar two to three times per day. E11.9 300 Each 12/18/2022 Active Dulaglutide 1.5 MG/0.5ML Subcutaneous Solution Pen-injector (Trulicity) Inject 1.5 mg under the skin once a week. 2 mL 12/22/2022 Active Repaglinide 0.5 MG Oral Tablet (Prandin)Indications: Type 2 diabetes mellitus with hemoglobin A1c goal of less than 8.0% ([facility]),Type 2 diabetes mellitus without complication, without long-term current use of insulin (HCC) Take 1 Tablet by mouth daily before breakfast. 90 Tablet 3 02/12/2023 Active OneTouch Verio In Vitro Strip (Glucose Blood)Indications:Typ e 2 diabetes mellitus with hemoglobin A1c goal of less than 8.0% ([facility]) Test Blood sugar two to three times per day. E11.9 300 Strip 3 03/13/2023 Active D3 High Potency 125 MCG (5000 UT) Oral Capsule TAKE 1 CAPSULE BY MOUTH AT NOON 0 03/02/2023 Active Viactiv Calcium Plus D 650-12.5-40 MG-MCG Oral Tablet Chewable (Calcium-Vitamin D-Vitamin K) Take by mouth. 0 Active Hospital, Clinic, or Other Facility Administered Medication Ordered Dose Route Frequency Start Date End Date Status vitamin b-12 (Cyanocobalamin) inj 1,000 mcgIndications:B12 deficiency 1000 mcg IM [id number] 11/24/2022 10/26/2023 Active documented as of this encounter (statuses as of 03/15/2023) Active Problems Problem Noted Date Diagnosed Date [...] 017 Overview: Had allergy immunotherapy 2 yrs ago-2014 Recurrent sinus infections 05/25/2016 Overview: 05/23>Saw ENT in [place]; CT 2 yrs ago- moved [place] -02/19--zpak,pred 03/22, pred 04/21;doxy 05/23--not on nasacort daily-resume and + claritin Preoperative general physical examination 2016 Overview: 07/21-l-m risk--0.3/-1.7--rpt 3 yrs Type 2 diabetes mellitus wit hout complication, without long-term current use of insulin 04/10/2016 HTN, goal below 140/90 04/10/2016 Dyslipidemia 04/10/2016 Acquired hypothyroidism 04/10/2016 documented as of this encounter (statuses as of 03/15/2023) Resolved Problems Problem Noted Date Diagnosed Date Resolved Date Mammographic microcalcification 10/19/2016 08/13/2018 Overview: 12/21--scattered fibroglandular densities (25% - 50% fibroglandular), dystrophic ca+-rpt 1 yr Closed fracture of proximal end of right humerus with routine healing 10/19/2016 07/23/2018 Overview: 07/25/16 Encounter for screening mamm ogram for breast cancer 05/25/2016 07/23/2018 Overview: 05/2015 [place] Screen for colon cancer 05/25/201607/05 Overview: csope-- 10/05/14- nl, gr 1 IH> At [place]--rpt 10 yrs documented as of this encounter (statuses as of 03/15/2023) Immunizations Name Administration Dates Next Due COVID-19 mRNA, LNP-s, No Pre serve, 2-Dose Series (Moderna) 07/06/2020,06/02/2020 COVID-19, mRNA, LNP-s, PF, B ooster, 100mcg/0.5mg (Moderna) 10/28/2021,03/02/2021 Covid-19, Mrna, Lnp-s, Pf, B ivalent, 30 Mcg, IM, 12 yrs and above ([employer]) 02/03/2022 Pneumococcal Conjugate Vacc, 13 Valent (Prevnar) [...] on file documented as of this encounter Progress Notes * Dano Dueñas MD - 03/15/2023 2:09 PM EST CHIEF COMPLAINT: Chief Complaint Patient presents with Joint Pain Left shoulder Impression: M75.122 Nontraumatic complete tear of left rotator cuff (primary encounter diagnosis) M75.42 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 At this time we will recommend that the patient undergo a course of physical therapy for rotator cuff program scapular stabilizing exercises. Patient would also benefit from a cortisone injection to see if this helps with someof her symptoms of impingement. Although the patient is at risk for adhesive capsulitis secondary to the mastectomy and radiation we do not see any evidence of significant adhesions by exam today. Follow Up: Return in about 2 months (around 05/15/2023) for Telephone Visit. | For: Telephone Visit. If her symptoms do not improve she may benefit from an MRI scan to better assess her rotator cuff pathology. There are no Patient Instructions on file for this visit. Injection Procedure Note: LEFT Shoulder: Time out: Prior to injection, a time out was called to confirm the administration of appropriate medicine, patient name, procedure and confirm to the best of our ability and knowledge the presence of any necessary risks and benefits. Patient verbalizes understanding. Consent obtained. Sterile techinique applied. Skin sterilized with Hibiclens swab. The left shoulder subacromial space was injected using 1.5 inch, 25 gauge needle with 1 mL 0.5% ropivacaine, 1 mL 1% lidocaine and 1 mL Depo-Medrol 40 mg/mL. Skin cleansed with alcohol and Band-Aid placed. Patient tolerated procedure with no significant bleeding or adverse reaction. Patient instructed to call or return to clinic for fever or warmth and redness at injection site for potential infection. Patient also advised as to potential for steroid flare reaction including increased pain and redness at injection site which should be treated with ice and resolve within 24 hours. HISTORY OF PRESENT ILLNESS: Sera Plata is a 82 year old right hand dominant female who presents to orthopedic Sports Medicine for consultation at the request of Annabella Victoria DO to us with a history of left shoulder pain . Patient states that she started having left shoulder pain in November when she started radiation therapy. States her symptoms started with raising the arm above her head for the therapy. Since then she is had difficulty with raising the arm and pain at night. She denies any previous injury. Of notepatient is a proximally 6 months status post a left subtotal mastectomy and lymph node dissection. She is had no formal treatment for the shoulder pain. Wakes at night? yes. Physical Therapy? no. Injections? no. Nursing Notes: Deidra Barrera LPN 03/15/23 1338 Signed Feels a "clicking" in the L side. No known injury. No numbness/tingling in the L arm. Hurts at night. Pt is RHD. Deidra FLORES Past Surgical History: Procedure Laterality Date ARM/ELBOW SUBQ TUMOR REMOVAL, 3 CM OR MORE Left 07/2004 lipoma arm BIOPSY OF UTERUS LINING 05/2014 BREAST BIOPSY Left 08/1998 infected cyst BX LYMPH NODE DEEP AXIL Left 07/28/2022 BIOPSY LYMPH NODE DEEP AXILLARY OPEN performed by Myke Pulliam MD at OR [facility] EXC BREAST LESION RADMARK Left 07/28/2022 EXCISION OF BREAST LESION RADIOLOGICAL MARKER performed by Myke Pulliam MD at OR [facility] IDENTIFY SENTINEL NODE, RADIOACTIVE TRACER Left 07/28/2022 INJECTION PROCEDURE FOR IDENTIFICATION SENTINEL NODE performed by Myke Pulliam MD at [facility] INFORMATION 07/13/2006 throat cyst removed LAPAROSCOPY; CHOLECYSTECTOMY 1995 MASTECTOMY, PARTIAL Left 07/28/2022 MASTECTOMY PARTIAL performed by Myke Pulliam MD at OR [facility] RADIATION THERAPY Left 2022 REMOVAL OF TONSILS, UNDER AGE 12 REMOVE CATARACT, INSERT LENS PROSTH Left 12/13/2021 LEFT EXTRACAPSULAR CATARACT REMOVAL WITH INTRAOCULAR LENS performed by Mitchell Guzman MD at OR [facility] REMOVE CATARACT, INSERT LENS PROSTH Right 12/27/2021 RIGHT EXTRACAPSULAR CATARACT REMOVAL WITH INTRAOCULAR LENS performed by Mitchell Guzman MD at [facility] TREAT ECTOPIC , TUBE/OVARY Right 1968 US GUIDED BREAST BIOPSY LEFT Left 06/22/2022 Invasive carcinoma, no special type, grade 2 Review of patient's allergies indicates: Allergen Reactions Hay Fever [Pollen] Other (Please comment) Itchy, inflamed eyes Penicillins Rash Sulfa Antibiotics Nausea/vomiting Current Outpatient Medications Medication Sig Dispense Refill Omeprazole Magnesium 20 MG Oral Tablet Delayed Release (PriLOSEC OTC) Take 1 Tablet by mouth as needed for Heartburn. Trulicity 1.5 MG/0.5ML Subcutaneous Solution Pen-injector (Dulaglutide) Inject under the skin 1.5 mg once a week . Do not start before April 03, 2022. 6 mL 3 [employer] Verio Reflect w/Device Kit Use as directed. Test Blood sugar one to two times per day. E11.9 1 Kit 0 Macular Health Formula Oral Capsule Take by mouth. Levothyroxine Sodium 50 MCG Oral Tablet (Levoxyl) (at least 30 min prior to breakfast or other meds) 90 Tablet 3 Aspirin 81 MG Oral Tablet Chewable Take 1 Tablet by mouth in the morning. with food.. 90 Tablet 3 Losartan Potassium 100 MG Oral Tablet (Cozaar) Take 1 Tablet by mouth in the morning. 90 Tablet 3 amLODIPine Besylate 2.5 MG Oral Tablet (Norvasc) Take 1 Tablet by mouth in the morning. 90 Tablet 3 Metoprolol Succinate ER 50 MG Oral Tablet Extended Release 24 Hour (toPROL XL) Take 1 Tablet by mouth in the morning. 90 Tablet 3 Pravastatin Sodium 40 MG Oral Tablet (Pravachol) Take 1 Tablet by mouth in the morning. 90 Tablet 3 Multivitamin Adults 50+ Oral Tablet Take 1 Tablet by mouth daily. metFORMIN HCl ER 500 MG Oral Tablet Extended Release 24 Hour (Glucophage XR) Take 2 Tablets by mouth 2 times a day with morning and evening meals. 360 Tablet 3 Sodium Fluoride 1.1 % Dental Cream [place] onto teeth every night at bedtime. Mirtazapine 15 MG Oral Tablet (Remeron) Take 1 Tablet by mouth at bedtime. 30 Tablet 5 Tamoxifen Citrate 20 MG Oral Tablet Take 1 Tablet by mouth in the morning. 90 Tablet 5 OneTouch Delica Lancets 33G Test Blood sugar two to three times per day. E11.9 300 Each 3 Dulaglutide 1.5 MG/0.5ML Subcutaneous Solution Pen-injector ([employer]) Inject 1.5 mg under the skin once a week. 2 mL 5 Repaglinide 0.5 MG Oral Tablet (Prandin) Take 1 Tablet by mouth daily before breakfast. 90 Tablet 3 OneTouch Verio In Vitro Strip (Glucose Blood) Test Blood sugar two to three times per day. E11.9 300 Strip 3 D3 High Potency 125 MCG (5000 UT) Oral Capsule TAKE 1 CAPSULE BY MOUTH AT NOON Viactiv Calcium Plus D 650-12.5-40 MG-MCG Oral Tablet Chewable (Calcium-Vitamin D-Vitamin K) Take by mouth. Current Facility-Administered Medications Medication Dose Route Frequency Provider Last Rate Last Admin vitamin b-12 (Cyanocobalamin) inj 1,000 mcg 1,000 mcg Intramuscular Q4 Weeks Jacey Dunn CRNP 1,000 mcg at 03/14/23 1513 Social History Socioeconomic History Marital status: Tobacco Use Smoking status: Never Smokeless tobacco: Never Vaping Use Vaping Use: Never used Substance and Sexual Activity Alcohol use: Yes Comment: rarely Drug use: No Sexual activity: Not Currently Partners: Male Social Determinants of Health Food Insecurity: No Food Insecurity (12/03/2019) Hunger Vital Sign Worried About Running Out of Food in the Last Year: Never true Ran Out of Food in the Last Year: Never true Family History Problem Relation Age of Onset Lung cancer Father smoker Breast Cancer No significant family history Past Medical History: Diagnosis Date Breast cancer (HCC) 2022 Left breast Closed fracture of proximal end of right humerus with routine healing 10/19/2016 07/25/16 Diabetes ([facility]) Dyslipidemia Hypertension Hypothyroid ROS: Constitional: No change in weight, No weakness, No fatigue, and No fevers, sweats, or chills Skin: No edema, No rash, and No itching Psychiatric: No depression, No anxiety, and No psychosis Xray: I personally reviewed the xrays. Reviewed the x-rays of the left shoulder from 12/2022. Those x-rays show no evidence fracture, no dislocation. There is evidence of acromial spurring anteriorly. Patient has degeneration of the AC joint. There is no evidence of proximal humeral head migration. No evidence of lytic or blastic lesions of the proximal humerus. PHYSICAL EXAM: General: generally well-nourished and in no acute distress HEENT: normocephalic, atraumatic, EOMI, sclera anicteric. Psych: mood and affect normal , cooperative Card: Peripheral pulses: normal in affected extremity (s) Resp: equal chest rise, non-tachypneic, non-labored breathing Skin: no rash, normal Neuro: Coordination: normal; Sensation: normal on affected extremity (s) Skin: normal. C-Spine evaluation: Does patient have neck symptoms and/or numbness/tingling in upper extremities: no Inspection: bilateral and symmetrical without apparent abnormality Shoulder ROM: ABD (170') - Right - 130 degrees Left - 130 degrees ER (40') - Bilateral and equal Passive ER -Bilateral and equal IR (T10) - right L5 left L5 FF (180') - Right - 120 degrees Left - 130 degrees Scapular elevation with forward flexion:negativeBilateral Tenderness/Location: yes - SS Inspection AC Joint Prominence: normal Cross-arm maneuver: positive bilaterally Impingement sign: positive bilaterally Sulcus sign: negative Lift-off test: negative Apprehension:negative Bossier's test: negative Load and shift: negative Speed's test: negative Drop-arm test: negative Instability Testing: Shoulder instability testing: normal bilaterally negative scapular winging negative scapular dyskinesis Strength: ABD: Right - 5-/5 Left - 5-/5 ER: Right - 5-/5 Left - 5-/5 IR: Right - 5/5 Left - 5/5 Biceps: Right - 5/5 Left - 5/5 "Empty can": Right - 4+/5 Left - 4+/5 Neurovascular assessment: negative for deficit Neck ROM: Extension 10 degree Flexion to the chest Spurlings test: Right negative Left negative Lateral bending and rotation pain: right negative left negative TTP: negative Ligamentous laxity testing: negative Bilateral Dano Dueñas MD Orthopaedics [facility] [address] [facility] [address] Orthopedic Sports Medicine Surgery 03/15/2023 2:09 PM This chart was completed in part utilizing [employer] Speech Voice Recognition Software. Grammatical errors, random word insertions, pronoun errors, and incomplete sentences are an occasional consequence of this system due to software limitations, ambient noise, and hardware issues. Any formal questions or concerns about the content, text, or information contained within the body of this dictation should be directly addressed to the provider for clarification. documented in this encounter Nursing Notes * Deidra Barrera LPN - 03/15/2023 1:35 PM EST Feels a "clicking" in the L side. No known injury. No numbness/tingling in the L arm. Hurts at night. Pt is RHD. Deidra FLORES documented in this encounter Plan of Treatment Upcoming Encounters Date Type Department Care Team (Latest Contact Info) Description 03/15/2023 2:50 PM EST Laboratory Laboratory, [facility] [address] [facility] [place] [phone] Petar Boateng [address] [place], [place] [address] [id number] Urinary frequency; Type 2 diabetes mellitus without complication, without long-term current use of insulin ([facility]) 03/19/2023 3:30 PM EST Office Visit Pharm[facility], [facility] [address] [facility] [address] Pharmacist2, [facility] [address] [place] [address] 03/21/2023 2:30 PM EST Office Visit Hematology/Oncolog y [facility] [address] [place] [address] Macey Cruz MD [address] [place] [address] 03/27/2023 11:45 AM EST Office Visit Cardiology, [facility] [address] [facility] [place] [address] Kimmy López, [address] [place] [address] 05/17/2023 4:00 PM EST Telemedicine Orthopaedics [facility] [address] [facility] [place] [address] Dano Dueñas MD [address] [place] [phone] 05/30/2023 11:00 AM EST Imaging Radiology [facility] [address] [place] [address] 06/04/2023 2:30 PM EST Nutrition Services Nutrition, [facility] [address] [facility] [place] [address] Monica Perry, LEON [address] [place] [address] 06/13/2023 10:30 AM EST Office Visit General Surgery, [facility] [address] [place] [address] Myke Pulliam MD [address] [place] [address] 06/20/2023 11:00 AM EST Immunization/Injecti on Hematology/Oncolog y Treatment, [place] [address] [place] [address] Nurse, Med [address] [place] [address] 08/29/2023 5:00 PM EDT Office Visit [facility] [place] [address] Annabella Victoria DO [address] [place] [address] 09/25/2023 9:30 AM EDT Cardiac Studies [facility], [facility] [place] [address] [facility] [address] [facility] [place] [address] Pending Results Name Type Priority Associated Diagnoses Date /Time XR SHOULDER, 1 VIEW Medical Imaging Routine 03/15/2023 1:49 PM EST Scheduled Referrals Name Type Priority Associated Diagnoses Orde r Schedule PHYSICAL THERAPY REFERRAL OP Referral Within 10 days (routine) 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 Ordered: 03/15/2023 Health Maintenance Due Date Last Done Comments Hepatitis B (1 of 3 - Risk 3-dose series) 2001 Albumin/Creatinine Ratio 05/10/20222 022, 09/27/2017, 07/04/2016 Diabetic Eye Exam 08/15/2022 08/15/2021, , 07/15/2019, [...] 03/14/2023, 100 10/2021, 11/02/2020, Additional history exists DXA Scan 10/18/2024 10/18/2022, 07/06, 02/19/2012 DTaP,Tdap,and Td Vaccines (2 - Td or Tdap) 05/26/2025 05/26/2015 Pneumococcal Vaccine: 65+ Years Completed 05/19/2014, 09/17/2012, 05/26/2002 Zoster Vaccines Completed 03/25/2019, 11/05, 02/01/2007 VITAMIN D LEVEL ONCE IN A LIFETIME-USE SMARTSET# [id number] Completed 11/14/2022 GARDASIL-HPV IMMUNIZATION SERIES Aged Out No longer eligible based on patient's age to complete this topic MENINGOCOCCAL (MENACTRA/MENVEO) Aged Out No longer eligible based on patient's age to complete this topic documented as of this encounter Medical Devices Implanted Type Area Genetic Coordinator Device Identifier Shelf Expiration Date Model / Serial / Lot Lens Intraoc 19.0 - [id number] - [id number] Implanted:Qty: 1 on 12/13/2021 by Mitchell Guzman MD at OR [facility] Left: Eye [employer] 06/06/2026 [id number] / [id number] / [id number] Lens Intraoc 19.0 - [id number] - [id number] Implanted:Qty: 1 on 12/27/2021 by Mitchell Guzman MD at OR [facility] Right: Eye [employer] 06/06/2026 [id number] / [id number] / [id number] documented as of this encounter Visit Diagnoses Diagnosis Nontraumatic complete tear of left rotator cuff- Primary 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 Question Answer Comments Discussion of Advance Directives occurred with: Patient Does the patient have a Living Will? No Does the patient have Health Care Power of Greenhouse Grower? No Code Status History Code Status Date Activated Date Inactivated Comments No Code 12/13/2021 6:43 AM 12/13/2021 1:23 PM This or tim reflects the patients wishes and were consensually agreed upon. Question Answer Comments Discussion of Advance Directives occurred with: Patient Does the patient have a Living Will? No Does the patient have Health Care Power of Greenhouse Grower? No Care Teams Chinese Instructor Relationship Specialty Start Date End Date Annabella Victoria DO [address] [place] [address] PCP - General Family Medicine 07/19/17 documented as of this encounter
--- OUTSIDE RECORDS SUMMARY | 2023-04-09 09:44 | External Medical Summary | Summary of Care ---
Author Name Unknown Organization [facility] Address [address] [place] [address] Phone [phone] Care Team Providers Care Corn Miller Name Role Phone Annabella Victoria DO Primary Care Provider [phone] Encounter Details Date Type Department Care Team (Late st Contact Info) Description 03/17/2023 Result Scan Unspecified Department Kimmy López DO [address] [place] [address] <No scans attached> Allergies Active Allergy Reactions Criticality Noted Date Comments Pollen Other (Please comment) 03/22/2016 Itchy, inflamed eyes Penicillins Rash 03/22/2016 Sulfa Antibiotics Nausea/vomiting 03/22/2016 documented as of this encounter (statuses as of 03/17/2023) Medications Medication Sig Dispensed Refills Start Date End Date Status Omeprazole Magnesium 20 MG Oral Tablet Delayed Release (PriLOSEC OTC) Take 1 Tablet by mouth as needed for Heartburn. 0 Active Trulicity 1.5 MG/0.5ML Subcutaneous Solution Pen-injector (Dulaglutide)Indicati ons:Type 2 diabetes mellitus with hemoglobin A1c goal of less than 8.0% ([facility]) Inject under the skin 1.5 mg once a week . Do not start before April 03, 2022. 6 mL 3 04/03/2022 Active OneTouch Verio Reflect w/Device KitIndications:Type 2 diabetes mellitus with hemoglobin A1c goal of less than 8.0% ([facility]) Use as directed. Test Blood sugar one [...] complication, without long-term current use of insulin ([facility]),Dyslipidemia Take 1 Tablet by mouth in the morning. 90 Tablet 3 09/06/2022 Active Multivitamin Adults 50+ Oral Tablet Take 1 Tablet by mouth daily. 0 Active metFORMIN HCl ER 500 MG Oral Tablet Extended Release 24 Hour (Glucophage XR)Indications:Type 2 diabetes mellitus with hemoglobin A1c goal of less than 8.0% ([facility]),Type 2 diabetes mellitus without complication, without long-term current use of insulin ([facility]) Take 2 Tablets by mouth 2 times a day with morning and evening meals. 360 Tablet 3 10/09/2022 Active Sodium Fluoride 1.1 % Dental Cream [place] onto teeth every night at bedtime. 0 Active Mirtazapine 15 MG Oral Tablet (Remeron)Indications: Adjustment disorder with depressed mood Take 1 Tablet by mouth at bedtime. 30 Tablet 5 11/24/2022 Active Tamoxifen Citrate 20 MG Oral TabletIndications:Inf iltrating ductal carcinoma of left breast ([facility]),CLL (chronic lymphocytic leukemia) ([facility]) Take 1 Tablet by mouth in the morning. 90 Tablet 5 12/13/2022 Active OneTouch Delica Lancets 33GIndications:Type 2 diabetes mellitus with hemoglobin A1c goal of less than 8.0% ([facility]) Test Blood sugar two to three times per day. E11.9 300 Each 3 12/18/2022 Active Dulaglutide 1.5 MG/0.5ML Subcutaneous Solution Pen-injector (Trulicity) Inject 1.5 mg under the skin once a week. 2 mL 5 12/22/2022 Active Repaglinide 0.5 MG Oral Tablet (Prandin)Indications: Type 2 diabetes mellitus with hemoglobin A1c goal of less than 8.0% ([facility]),Type 2 diabetes mellitus without complication, without long-term current use of insulin ([facility]) Take 1 Tablet by mouth daily before breakfast. 90 Tablet 3 02/12/2023 Active OneTouch Verio In Vitro Strip (Glucose Blood)Indications:Typ e 2 diabetes mellitus with hemoglobin A1c goal of less than 8.0% ([facility]) Test Blood sugar two to three times [...] inj 1,000 mcgIndications:B12 deficiency 1000 mcg IM [id number] 11/24/2022 10/26/2023 Active documented as of this encounter (statuses as of 03/17/2023) Active Problems Problem Noted Date Diagnosed Date [...] sinus infections 05/25/2016 Overview: 05/23>Saw ENT in [place]; CT 2 yrs ago- moved [place] -02/19--zpak,pred 03/22, pred 04/21;doxy 05/23--not on nasacort daily-resume and + claritin Preoperative general physical examination 2016 Overview: 07/21-l-m risk--0.3/-1.7--rpt 3 yrs Type 2 diabetes mellitus wit hout complication, without long-term current use of insulin 04/10/2016 HTN, goal below 140/90 04/10/2016 Dyslipidemia 04/10/2016 Acquired hypothyroidism 04/10/2016 documented as of this encounter (statuses as of 03/17/2023) Resolved Problems Problem Noted Date Diagnosed Date Resolved Date Mammographic microcalcification 10/19/2016 08/13/2018 Overview: 12/21--scattered fibroglandular densities (25% - 50% fibroglandular), dystrophic ca+-rpt 1 yr Closed fracture of proximal end of right humerus with routine healing 10/19/2016 07/23/2018 Overview: 07/25/16 Encounter for screening mamm ogram for breast cancer 05/25/2016 07/23/2018 Overview: 05/2015 [place] Screen for colon cancer 05/25/201607/05 Overview: csope-- 10/05/14- nl, gr 1 IH> At [place]--rpt 10 yrs documented as of this encounter (statuses as of 03/17/2023) Immunizations Name Administration Dates Next Due COVID-19 [...] 03/19/2023 3:30 PM EST Office Visit Pharmacy, [place] [facility] [place] [address] [place] [address] Pharmacist2, [facility] [address] [place] [address] 03/21/2023 2:30 PM EST Office Visit Hematology/Oncology [place] [facility] [address] [place] [address] Macey Cruz MD [address] [place] [address] 03/27/2023 11:45 AM EST Office Visit Cardiology, [facility] [place] [address] Maribel Kimmyunique Fallon, DO [address] [place] [address] [place] [address] 05/17/2023 4:00 PM EST Telemedicine Orthopaedics [facility] [address] [facility] [place] [address] Dano Dueñas MD [address] [place] [id number] 05/30/2023 11:00 AM EST Imaging Radiology [facility] 1st Floor, [place] [address] [facility] [place] [address] 06/04/2023 2:30 PM EST Nutrition Services Nutrition, [facility] [address] [facility] [place] [address] Monica Perry, LEON [facility] [place] [address] 06/13/2023 10:30 AM EST Office Visit General Surgery, [facility] [address] [facility] [place] [address] Myke Pulliam MD [address] [place] [address] 06/20/2023 11:00 AM EST Immunization/Injection Hematology/Oncology Treatment, [place] [address] [place] [address] Nurse, Med 4 [address] [place] [address] 08/29/2023 5:00 PM EDT Office Visit Family Practice [facility] [address] [place] [address] Annabella Victoria DO [address] [place] [address] 09/25/2023 9:30 AM EDT Cardiac Studies Cardiology, [facility] [address] [place] [address] [facility] [address] [place] [address] Health Maintenance Due Date Last Done Comments [...] 11/03/2020, Additional history exists HbA1c 09/12/2023 03/14/2023, 100 01/2023, 08/28/2022, Additional history exists B-12 03/14/2024 03/14/2023, 11/04, 08/09/2021, Additional history exists GFR 03/14/2024 03/14/2023, [...] D LEVEL ONCE IN A LIFETIME-USE SMARTSET# [id number] Completed 11/14/2022 GARDASIL-HPV IMMUNIZATION SERIES Aged Out No longer eligible based on patient's age to complete this topic MENINGOCOCCAL (MENACTRA/MENVEO) Aged Out No longer eligible based on patient's age to complete this topic documented as of this encounter Medical Devices Implanted Type Area Corporate Development Manager Device Identifier Shelf Expiration Date Model / Serial / Lot Lens Intraoc 19.0 - [id number] - [id number] Implanted:Qty: 1 on 12/13/2021 by Mitchell Guzman MD at OR [facility] Left: Eye [employer] 06/06/2026 [id number] / [id number] / [id number] Lens Intraoc 19.0 - [id number] - [id number] Implanted:Qty: 1 on 12/27/2021 by Mitchell Guzman MD at OR [facility] Right: Eye [employer] 06/06/2026 [id number] / [id number] / [id number] documented as of this encounter Procedures Procedure Name Priority Date/Time Associated Diagnosis Comments CARDIOLOGY SCANNED RESULT 03/17/2023 documented in this encounter Results * CARDIOLOGY SCANNED RESULT (03/17/2023) 03/17/2023 Kimmy López DO OTHER documented in this encounter Advance Directives Latest Code Status on File Code Status Date Activated Date Inactivated Comments No Code 12/27/2021 6:34 AM 12/27/2021 1:09 PM This order reflects the patients wishes and were consensually agreed upon. Question Answer Comments Discussion of Advance Directives occurred with: Patient Does the patient have a Living Will? No Does the patient have Health Care Power of Document Management Analyst? No Code Status History Code Status Date Activated Date Inactivated Comments No Code 12/13/2021 6:43 AM 12/13/2021 1:23 PM This or tim reflects the patients wishes and were consensually agreed upon. Question Answer Comments Discussion of Advance Directives occurred with: Patient Does the patient have a Living Will? No Does the patient have Health Care Power of Document Management Analyst? No Care Teams Corn Miller Relationship Specialty Start Date End Date Annabella Victoria DO [address] [address] PCP - General Family Medicine 07/19/17 documented as of this encounter
--- OUTSIDE RECORDS SUMMARY | 2023-04-09 09:44 | External Medical Summary | Summary of Care ---
Author Name Unknown Organization [facility] Address [address] [place] [address] Phone [phone] Care Team Providers Care Butadiene Converter Operator Name Role Phone Annabella Victoria DO Primary Care Provider [phone] Encounter Details Date Type Department Care Team (Late st Contact Info) Description 03/16/2023 Patient Reported Data Patient Survey Ortho [facility] Allergies Active Allergy Reactions Criticality Noted Date Comments Pollen Other (Please comment) 03/22/2016 Itchy, inflamed eyes Penicillins Rash 03/22/2016 Sulfa Antibiotics Nausea/vomiting 03/22/2016 documented as of this encounter (statuses as of 03/16/2023) Medications Medication Sig Dispensed Refills Start Date [...] to breakfast or other meds) 90 Tablet 09/06/2022 Active Aspirin 81 MG Oral Tablet Chewable Take 1 Tablet by mouth in the morning. with food.. 90 Tablet 09/06/2022 Active Losartan Potassium 100 MG Oral Tablet (Cozaar)Indications:H TN, goal below 140/90 Take 1 Tablet by mouth in the morning. 90 Tablet 09/06/2022 Active amLODIPine Besylate 2.5 MG Oral Tablet (Norvasc)Indications: HTN, goal below 140/90 Take 1 Tablet by mouth in the morning. 90 Tablet 09/06/2022 Active Metoprolol Succinate ER 50 MG Oral Tablet Extended Release 24 Hour (toPROL XL)Indications:HTN, goal below 140/90 Take 1 Tablet by mouth in the morning. 90 Tablet 09/06/2022 Active Pravastatin Sodium 40 MG Oral Tablet (Pravachol)Indication s:Type 2 diabetes mellitus without complication, without long-term current use of insulin ([facility]),Dyslipidemia Take 1 Tablet by mouth in the morning. 90 Tablet 09/06/2022 Active Multivitamin Adults 50+ Oral Tablet [...] with morning and evening meals. 360 Tablet 10/09/2022 Active Sodium Fluoride 1.1 % Dental Cream [place] onto teeth every night at bedtime. 0 Active Mirtazapine 15 MG Oral Tablet (Remeron)Indications: Adjustment disorder with depressed mood Take 1 Tablet by mouth at bedtime. 30 Tablet 11/24/2022 Active Tamoxifen Citrate 20 MG Oral TabletIndications:Inf iltrating ductal carcinoma of left breast ([facility]),CLL (chronic lymphocytic leukemia) ([facility]) Take 1 Tablet by mouth in the morning. 90 Tablet 12/13/2022 Active OneTouch Delica Lancets 33GIndications:Type 2 [...] inj 1,000 mcgIndications:B12 deficiency 1000 mcg IM [id number] 11/24/2022 10/26/2023 Active documented as of this encounter (statuses as of 03/16/2023) Active Problems Problem Noted Date Diagnosed Date [...] sinus infections 05/25/2016 Overview: 05/23>Saw ENT in [place]; CT 2 yrs ago- moved [place] -02/19--zpak,pred 03/22, pred 04/21;doxy 05/23--not on nasacort daily-resume and + claritin Preoperative general physical examination 2016 Overview: 07/21-l-m risk--0.3/-1.7--rpt 3 yrs Type 2 diabetes mellitus wit hout complication, without long-term current use of insulin 04/10/2016 HTN, goal below 140/90 04/10/2016 Dyslipidemia 04/10/2016 Acquired hypothyroidism 04/10/2016 documented as of this encounter (statuses as of 03/16/2023) Resolved Problems Problem Noted Date Diagnosed Date Resolved Date Mammographic microcalcification 10/19/2016 08/13/2018 Overview: 12/21--scattered fibroglandular densities (25% - 50% fibroglandular), dystrophic ca+-rpt 1 yr Closed fracture of proximal end of right humerus with routine healing 10/19/2016 07/23/2018 Overview: 07/25/16 Encounter for screening mamm ogram for breast cancer 05/25/2016 07/23/2018 Overview: 05/2015 [place] Screen for colon cancer 05/25/201607/05 Overview: csope-- 10/05/14- nl, gr 1 IH> At [place]--rpt 10 yrs documented as of this encounter (statuses as of 03/16/2023) Immunizations Name Administration Dates Next Due COVID-19 [...] PM EST Office Visit Pharmacy, [facility] [place] [address] [place] [address] Pharmacist2, [facility] [address] [place] [address] 03/21/2023 2:30 PM EST Office Visit Hematology/Oncology [place] [facility] [place] [address] [place] [address] Macey Cruz MD [address] [place] [place] [address] 03/27/2023 11:45 AM EST Office Visit Cardiology, [facility] [address] [facility] [place] [address] Kimmy López, [address] [place] [address] 05/17/2023 4:00 PM EST Telemedicine Orthopaedics [facility] [address] [place] [address] Dano Dueñas MD [address] [place] [phone] 05/30/2023 11:00 AM EST Imaging [facility] [address] [place] [address] 06/04/2023 2:30 PM EST Nutrition Services Nutrition, [facility] [address] [facility] [place] [address] Monica Perry, RDN [address] [place] [address] 06/13/2023 10:30 AM EST Office Visit General Surgery, [facility] [address] [place] [address] Myke Pulliam MD [address] [place] [address] 06/20/2023 11:00 AM EST Immunization/Injection Hematology/Oncology Treatment, [place] [address] [place] [address] Nurse, Med [address] [place] [address] 08/29/2023 5:00 PM EDT Office Visit Family Practice [facility] [address] [place] [address] Annabella Victoria DO [address] [place] [address] 09/25/2023 9:30 AM EDT Cardiac Studies Cardiology, [facility] [address] [place] [address] [facility] [address] [place] [address] Health Maintenance Due Date Last Done Comments [...] 11/03/2020, Additional history exists HbA1c 09/12/2023 03/14/2023, 01/2023, 08/28/2022, Additional history exists B-12 03/14/2024 03/14/2023, 0705/2022, 08/09/2021, Additional history exists GFR 03/14/2024 03/14/2023, 080 01/2023, 09/11/2022, Additional history exists TSH 03/14/2024 03/14/2023, 1010/2021, 11/02/2020, Additional history exists Albumin/Creatinine Ratio 03/15/2024 023, 05/10/2021, 09/27/2017, Additional history exists DXA Scan 10/18/2024 10/18/2022, 07/06, 02/19/2012 DTaP,Tdap,and Td Vaccines (2 - Td or Tdap) 05/26/2025 05/26/2015 Pneumococcal Vaccine: 65+ Years Completed 05/19/2014, 09/17/2012, 05/26/2002 Zoster Vaccines Completed 03/25/2019, 11/05, 02/01/2007 VITAMIN D LEVEL ONCE IN A LIFETIME-USE SMARTSET# [id number] Completed 11/14/2022 GARDASIL-HPV IMMUNIZATION SERIES Aged Out No longer eligible based on patient's age to complete this topic MENINGOCOCCAL (MENACTRA/MENVEO) Aged Out No longer eligible based on patient's age to complete this topic documented as of this encounter Medical Devices Implanted Type Area Director Of Recruitment Device Identifier Shelf Expiration Date Model / Serial / Lot Lens Intraoc 19.0 - [id number] - [id number] Implanted:Qty: 1 on 12/13/2021 by Mitchell Guzman MD at OR [facility] Left: Eye [employer] 06/06/2026 [id number] / [id number] / [id number] Lens Intraoc 19.0 - [id number] - [id number] Implanted:Qty: 1 on 12/27/2021 by Mitchell Guzman MD at OR [facility] Right: Eye [employer]OM[employer] 06/06/2026 [id number] / [id number] / [id number] documented as of this encounter Advance Directives Latest Code Status on File Code Status Date Activated Date Inactivated Comments No Code 12/27/2021 6:34 AM 12/27/2021 1:09 PM This order reflects the patients wishes and were consensually agreed upon. Question Answer Comments Discussion of Advance Directives occurred with: Patient Does the patient have a Living Will? No Does the patient have Health Care Power of Algologist? No Code Status History Code Status Date Activated Date Inactivated Comments No Code 12/13/2021 6:43 AM 12/13/2021 1:23 PM This or tim reflects the patients wishes and were consensually agreed upon. Question Answer Comments Discussion of Advance Directives occurred with: Patient Does the patient have a Living Will? No Does the patient have Health Care Power of Algologist? No Care Teams Butadiene Converter Operator Relationship Specialty Start Date End Date Annabella Victoria DO [address] [address] PCP - General Family Medicine 07/19/17 documented as of this encounter
--- OUTSIDE RECORDS SUMMARY | 2023-04-09 09:44 | External Medical Summary ---
Author Name Unknown Address Unknown Organization K01:[facility] [place] [address] [facility] [address] Laboratory Report Ordering Provider Test Date Status PERLA WILSON 03/14/2023 13:47:36 Final Observation Date Value Abnormality Reference (Units ) Status TSH 03/14/2023 13:47:36 3.79 0.27-4.20 (uIU/mL) Final Performing Location [facility] [place] [address] [facility] [address]
--- OUTSIDE RECORDS SUMMARY | 2023-04-09 09:44 | External Medical Summary | Summary of Care ---
Author Name Unknown Organization [facility] Address [address] [place] [address] Phone [phone] Care Team Providers Care Assistant Speech Language Pathologist Name Role Phone Annabella Victoria DO Primary Care Provider [phone] Encounter Details Date Type Department Care Team (Late st Contact Info) Description 03/27/2023 Result Scan Unspecified Department Kimmy López DO [address] [place] [address] <No scans attached> Allergies Active Allergy Reactions Criticality Noted Date Comments Pollen Other (Please comment) 03/22/2016 Itchy, inflamed eyes Penicillins Rash 03/22/2016 Sulfa Antibiotics Nausea/vomiting 03/22/2016 documented as of this encounter (statuses as of 03/28/2023) Medications Medication Sig Dispensed Refills Start Date End Date Status Omeprazole Magnesium 20 MG Oral Tablet Delayed Release (PriLOSEC OTC) Take 1 Tablet by mouth as needed for Heartburn. 0 Active Trulicity 1.5 MG/0.5ML Subcutaneous Solution Pen-injector (Dulaglutide)Indicati ons:Type 2 diabetes mellitus with hemoglobin A1c goal of less than 8.0% ([facility]) Inject under the skin 1.5 mg once a week . Do not start before April 03, 2022. 6 mL 3 04/03/2022 Active OneTouch Verio Reflect w/Device KitIndications:Type 2 diabetes mellitus with hemoglobin A1c goal of less than 8.0% ([facility]) Use as directed. Test Blood sugar [...] long-term current use of insulin ([facility]),Dyslipidemia Take 1 Tablet by mouth in the morning. 90 Tablet 3 09/06/2022 Active Multivitamin Adults 50+ Oral Tablet Take 1 Tablet by mouth daily. 0 Active metFORMIN HCl ER 500 MG Oral Tablet Extended Release 24 Hour (Glucophage XR)Indications:Type 2 diabetes mellitus with hemoglobin A1c goal of less than 8.0% ([facility]),Type 2 diabetes mellitus without complication, without long-term current use of insulin ([facility]) Take 2 Tablets by mouth 2 times a day with morning and evening meals. 360 Tablet 3 10/09/2022 Active Sodium Fluoride 1.1 % Dental Cream [place] onto teeth every night at bedtime. 0 Active Mirtazapine 15 MG Oral Tablet (Remeron)Indications: Adjustment disorder with depressed mood Take 1 Tablet by mouth at bedtime. 30 Tablet 5 11/24/2022 Active Tamoxifen Citrate 20 MG Oral TabletIndications:Inf iltrating ductal carcinoma of left breast ([facility]),CLL (chronic lymphocytic leukemia) ([facility]) Take 1 Tablet by mouth in the morning. 90 Tablet 5 12/13/2022 Active OneTouch Delica Lancets 33GIndications:Type 2 diabetes mellitus with hemoglobin A1c goal of less than 8.0% ([facility]) Test Blood sugar two to three times per day. E11.9 300 Each 3 12/18/2022 Active Dulaglutide 1.5 MG/0.5ML Subcutaneous Solution Pen-injector (Trulicity) Inject 1.5 mg under the skin once a week. 2 mL 5 12/22/2022 Active Repaglinide 0.5 MG Oral Tablet (Prandin)Indications: Type 2 diabetes mellitus with hemoglobin A1c goal of less than 8.0% ([facility]),Type 2 diabetes mellitus without complication, without long-term current use of insulin (HCC) Take 1 Tablet by mouth daily before breakfast. 90 Tablet 3 02/12/2023 Active OneTouch Verio In Vitro Strip (Glucose Blood)Indications:Typ e 2 diabetes mellitus with hemoglobin A1c goal of less than 8.0% ([facility]) Test Blood sugar two to three [...] inj 1,000 mcgIndications:B12 deficiency 1000 mcg IM [id number] 11/24/2022 10/26/2023 Active documented as of this encounter (statuses as of 03/28/2023) Active Problems Problem Noted Date Diagnosed Date [...] sinus infections 05/25/2016 Overview: 05/23>Saw ENT in [place]; CT 2 yrs ago- moved [place] -02/19--zpak,pred 03/22, pred 04/21;doxy 05/23--not on nasacort daily-resume and + claritin Preoperative general physical examination 2016 Overview: 07/21-l-m risk--0.3/-1.7--rpt 3 yrs Type 2 diabetes mellitus wit hout complication, without long-term current use of insulin 04/10/2016 HTN, goal below 140/90 04/10/2016 Dyslipidemia 04/10/2016 Acquired hypothyroidism 04/10/2016 documented as of this encounter (statuses as of 03/28/2023) Resolved Problems Problem Noted Date Diagnosed Date Resolved Date Mammographic microcalcification 10/19/2016 08/13/2018 Overview: 12/21--scattered fibroglandular densities (25% - 50% fibroglandular), dystrophic ca+-rpt 1 yr Closed fracture of proximal end of right humerus with routine healing 10/19/2016 07/23/2018 Overview: 07/25/16 Encounter for screening mamm ogram for breast cancer 05/25/2016 07/23/2018 Overview: 05/2015 [place] Screen for colon cancer 05/25/201607/05 Overview: csope-- 10/05/14- nl, gr 1 IH> At [place]--rpt 10 yrs documented as of this encounter (statuses as of 03/28/2023) Immunizations Name Administration Dates Next Due COVID-19 [...] 05/14/2023 3:30 PM EST Office Visit Pharmacy, [facility] [address] [place] [address] Pharmacist2, [facility] [address] [place] [address] [address] 05/17/2023 4:00 PM EST Telemedicine Orthopaedics [facility] [address] [facility] [place] [address] Dano Dueñas MD [address] [place] [phone] 05/30/2023 11:00 AM EST Imaging Radiology [facility] 1st [facility] [address] [place] [address] 06/04/2023 2:30 PM EST Nutrition Services Nutrition, [facility] [address] [place] [address] Monica Perry, MARIAHN [address] [place] [address] 06/13/2023 10:30 AM EST Office Visit General Surgery, [facility] [address] [place] [address] Myke Pulliam MD [address] [place] [address] 06/20/2023 11:00 AM EST Immunization/Injection Hematology/Oncology Treatment, [facility] [address] [place] [address] Nurse, Med 200 [facility] [place] [address] 08/29/2023 5:00 PM EDT Office Visit Family Practice [facility] [address] [place] [phone] Annabella Victoria DO [address] [place] [address] 09/12/2023 11:00 AM EDT Laboratory Laboratory [facility] [address] [place] [phone] [place], [facility] [address] [place] [address] 09/19/2023 12:30 PM EDT Office Visit Hematology/Oncology [facility] [address] [facility] [place] [address] Macey Cruz MD 200 [facility] [place] [address] 09/25/2023 9:30 AM EDT Cardiac Studies Cardiology, [facility] [address] [facility] [place] [address] [place], Pacer Clinic [facility] [place] [address] Health Maintenance Due Date Last Done Comments [...] 08/28/2022, Additional history exists B-12 03/14/2024 03/14/2023, 07/05/2022, 08/09/2021, Additional history exists GFR 03/14/2024 03/14/2023, 08/0 01/2023, 09/11/2022, Additional history exists TSH 03/14/2024 03/14/2023, 10/0 10/2021, 11/02/2020, Additional history exists Albumin/Creatinine Ratio 03/15/2024 023, 05/10/2021, 09/27/2017, Additional history exists DXA Scan 10/18/2024 10/18/2022, 07/06, 02/19/2012 DTaP,Tdap,and Td Vaccines (2 - Td or Tdap) 05/26/2025 05/26/2015 Pneumococcal Vaccine: 65+ Years Completed 05/19/2014, 09/17/2012, 05/26/2002 Zoster Vaccines Completed 03/25/2019, 11/05, 02/01/2007 VITAMIN D LEVEL ONCE IN A LIFETIME-USE SMARTSET# [id number] Completed 11/14/2022 GARDASIL-HPV IMMUNIZATION SERIES Aged Out No longer eligible based on patient's age to complete this topic MENINGOCOCCAL (MENACTRA/MENVEO) Aged Out No longer eligible based on patient's age to complete this topic documented as of this encounter Medical Devices Implanted Type Area Oil Pit Attendant Device Identifier Shelf Expiration Date Model / Serial / Lot Lens Intraoc 19.0 - [id number] - [id number] Implanted:Qty: 1 on 12/13/2021 by Mitchell Guzman MD at OR [facility] Left: Eye [employer] 06/06/2026 [id number] / [id number] / [id number] Lens Intraoc 19.0 - [id number] - [id number] Implanted:Qty: 1 on 12/27/2021 by Mitchell Guzman MD at OR [facility] Right: Eye [employer] 06/06/2026 [id number] / [id number] / [id number] documented as of this encounter Procedures Procedure Name Priority Date/Time Associated Diagnosis Comments CARDIOLOGY SCANNED RESULT 03/27/2023 documented in this encounter Results * CARDIOLOGY SCANNED RESULT (03/27/2023) 03/27/2023 Kimmy López DO OTHER documented in this [...] the patient have Health Care Power of Store Receiving Specialist? No Code Status History Code Status Date Activated Date Inactivated Comments No Code 12/13/2021 6:43 AM 12/13/2021 1:23 PM This or tim reflects the patients wishes and were consensually agreed upon. Question Answer Comments Discussion of Advance Directives occurred with: Patient Does the patient have a Living Will? No Does the patient have Health Care Power of Store Receiving Specialist? No Care Teams Assistant Speech Language Pathologist Relationship Specialty Start Date End Date Annabella Victoria DO [address] [place] [address] PCP - General Family Medicine 07/19/17 documented as of this encounter
--- OUTSIDE RECORDS SUMMARY | 2023-04-09 09:44 | External Medical Summary | Summary of Care ---
Author Name Unknown Organization [facility] Address [address] [place] [address] Phone [phone] Care Team Providers Care Shoe Cementer Name Role Phone Annabella Victoria DO Primary Care Provider [phone] Reason for Visit * Reason Comments Outpatient Testing Encounter Details Date Type Department Care Team (Late st Contact Info) Description 03/15/2023 2:50 PM EST Laboratory Laboratory, [facility] [address] [place] [phone] [facility] [address] [place] [address] Urinary frequency; Type 2 diabetes mellitus without complication, without long-term current use of insulin ([facility]) Allergies Active Allergy Reactions Criticality Noted Date [...] A1c goal of less than 8.0% ([facility]) Inject under the skin 1.5 mg once a week . Do not start before April 03, 2022. 6 mL 3 04/03/2022 Active OneTouch Verio Reflect w/Device KitIndications:Type 2 diabetes mellitus with hemoglobin A1c goal of less than 8.0% ([facility]) Use as directed. Test Blood sugar [...] without long-term current use of insulin ([facility]),Dyslipidemia Take 1 Tablet by mouth in the morning. 90 Tablet 3 09/06/2022 Active Multivitamin Adults 50+ Oral Tablet Take 1 Tablet by mouth daily. 0 Active metFORMIN HCl ER 500 MG Oral Tablet Extended Release 24 Hour (Glucophage XR)Indications:Type 2 diabetes mellitus with hemoglobin A1c goal of less than 8.0% ([facility]),Type 2 diabetes mellitus without complication, without long-term current use of insulin ([facility]) Take 2 Tablets by mouth 2 times a day with morning and evening meals. 360 Tablet 3 10/09/2022 Active Sodium Fluoride 1.1 % Dental Cream [place] onto teeth every night at bedtime. 0 Active Mirtazapine 15 MG Oral Tablet (Remeron)Indications: Adjustment disorder with depressed mood Take 1 Tablet by mouth at bedtime. 30 Tablet 5 11/24/2022 Active Tamoxifen Citrate 20 MG Oral TabletIndications:Inf iltrating ductal carcinoma of left breast (HCC),CLL (chronic lymphocytic leukemia) (HCC) Take 1 Tablet by mouth in the morning. 90 Tablet 5 12/13/2022 Active OneTouch [place] Lancets 33GIndications:Type 2 diabetes mellitus with hemoglobin A1c goal of less than 8.0% ([facility]) Test Blood sugar two to three times per day. E11.9 300 Each 3 12/18/2022 Active Dulaglutide 1.5 MG/0.5ML Subcutaneous Solution Pen-injector (Trulicity) Inject 1.5 mg under the skin once a week. 2 mL 5 12/22/2022 Active Repaglinide 0.5 MG Oral Tablet (Prandin)Indications: Type 2 diabetes mellitus with hemoglobin A1c goal of less than 8.0% ([facility]),Type 2 diabetes mellitus without complication, without long-term current use of insulin ([facility]) Take 1 Tablet by mouth daily before breakfast. 90 Tablet 3 02/12/2023 Active OneTouch Verio In Vitro Strip (Glucose Blood)Indications:Typ e 2 diabetes mellitus with hemoglobin A1c goal of less than 8.0% ([facility]) Test Blood sugar two to three [...] inj 1,000 mcgIndications:B12 deficiency 1000 mcg IM [id number] 11/24/2022 10/26/2023 Active documented as of this [...] sinus infections 05/25/2016 Overview: 05/23>Saw ENT in [place]; CT 2 yrs ago- moved [place] -02/19--zpak,pred [...] for breast cancer 05/25/2016 07/23/2018 Overview: 05/2015 [place] Screen for colon cancer 05/25/201607/05 Overview: csope-- 10/05/14- nl, gr 1 IH> At [place]--rpt 10 yrs documented as of this encounter [...] Office Visit Pharmacy, [facility] [address] [place] [address] Pharmacist2, [facility] Sp [address] [place] [address] 03/21/2023 2:30 PM EST Office Visit Hematology/Oncology [facility] [address] [place] [address] Macey Cruz MD [address] [place] [address] 03/27/2023 11:45 AM EST Office Visit Cardiology, [facility] [address] [facility] [place] [address] Kimmy López, [address] [place] [address] 05/17/2023 4:00 PM EST Telemedicine Orthopaedics [facility] [address] [facility] [place] [address] Dano Dueñas MD [address] [facility] [place] [phone] 05/30/2023 11:00 AM EST Imaging [facility] [address] [facility] [place] [address] 06/04/2023 2:30 PM EST Nutrition Services Nutrition, [facility] [address] [facility] [place] [address] Monica Perry, LEON [address] [facility] [place] [address] 06/13/2023 10:30 AM EST Office Visit General Surgery, [facility] [address] [place] [address] Myke Pulliam MD [address] [place] [address] 06/20/2023 11:00 AM EST Immunization/Injection Hematology/Oncology Treatment, [place] [address] [place] [address] Nurse, Med [address] [place] [address] 08/29/2023 5:00 PM EDT Office Visit Family Practice [facility] [address] [facility] [place] [address] Annabella Victoria DO [address] [place] [address] 09/25/2023 9:30 AM EDT Cardiac Studies Cardiology, [facility] [address] [facility] [place] [address] [facility] [address] [facility] [place] [address] Pending Results Name Type Priority Associated Diagnoses Date /Time CULTURE, URINE, QUANTITATIVE Lab Routine Urinary frequency 03/15/2023 2:36 PM EST ALBUMIN / CREATININE RATIO, URINE Lab Routine Type 2 diabetes mellitus without complication, without long-term current use of insulin (HCC) 03/15/2023 2:36 PM EST Health Maintenance Due Date Last Done Comments [...] 03/14/2023, 10/0 10/2021, 11/02/2020, Additional history exists DXA Scan 10/18/2024 10/18/2022, 07/06, 02/19/2012 DTaP,Tdap,and Td Vaccines (2 - Td or Tdap) 05/26/2025 05/26/2015 Pneumococcal Vaccine: 65+ Years Completed 05/19/2014, 09/17/2012, 05/26/2002 Zoster Vaccines Completed 03/25/2019, 11/05, 02/01/2007 VITAMIN D LEVEL ONCE IN A LIFETIME-USE SMARTSET# [id number] Completed 11/14/2022 GARDASIL-HPV IMMUNIZATION SERIES Aged Out No longer eligible based on patient's age to complete this topic MENINGOCOCCAL (MENACTRA/MENVEO) Aged Out No longer eligible based on patient's age to complete this topic documented as of this encounter Medical Devices Implanted Type Area Wire Drawing Machine Tender Device Identifier Shelf Expiration Date Model / Serial / Lot Lens Intraoc 19.0 - [id number] - [id number] Implanted:Qty: 1 on 12/13/2021 by Mitchell Guzman MD at OR [facility] Left: Eye [employer] 06/06/2026 [id number] / [id number] / [id number] Lens Intraoc 19.0 - [id number] - [id number] Implanted:Qty: 1 on 12/27/2021 by Mitchell Guzman MD at OR [facility] Right: Eye [employer]OM[employer] 06/06/2026 [id number] / [id number] / [id number] documented as of this encounter Visit Diagnoses Diagnosis Urinary frequency Type 2 diabetes mellitus without [...] the patient have Health Care Power of Building Service Worker? No Code Status History Code Status Date Activated Date Inactivated Comments No Code 12/13/2021 6:43 AM 12/13/2021 1:23 PM This or tim reflects the patients wishes and were consensually agreed upon. Question Answer Comments Discussion of Advance Directives occurred with: Patient Does the patient have a Living Will? No Does the patient have Health Care Power of Building Service Worker? No Care Teams Shoe Cementer Relationship Specialty Start Date End Date Annabella Victoria DO [address] [place] [address] PCP - General Family Medicine 07/19/17 documented as of this encounter
--- OUTSIDE RECORDS SUMMARY | 2023-04-09 09:44 | External Medical Summary ---
Author Name Unknown Address Unknown Organization K01:[facility] [place] [address] [facility] [address] Laboratory Report Ordering Provider Test Date Status PERLA WILSON 03/15/2023 14:36:17 Final <10,000 colonies/ml mixed no rmal kenneth Observation Date Value Abnormality Reference (Units ) Status Bacteria identified in Specimen by Culture 03/15/2023 14:36:17 [id number]^KLEBSIEL LA AEROGENES Abnormal Final >100,000 colonies/mL Klebsie lla aerogenes
This bacterial species is known to produce a chromosomal AmpC inducible beta lactamase. Penicillin or cephalosporin use, with the exception of cefepime, may result in resistance. Performing Location [facility] [place] [address] [facility] [address] Ordering Provider Test Date Status PERLA WILSON 03/15/2023 14:36:17 Final Observation Date Value Abnormality Reference (Units ) Status Cefepime susceptibility 03/15/2023 14:36:17 <=1 Susceptible Final cefOXitin [Susceptibility] 03/15/2023 14:36:17 Resistant Final Ceftriaxone suceptibility 03/15/2023 14:36:17 <=1 Susceptible Final Ciprofloxacin 03/15/2023 14:36:17 <=0.25 Susceptible Final Due to serious side effects, the FDA has advised against using Ciprofloxacin to treat uncomplicated UTIs and respiratory tract infections unless there are no alternative treatment options. Gentamicin susceptibility 03/15/2023 14:36:17 <=1 Susc eptible Final Levofloxacin susceptibility 03/15/2023 14:36:17 1 In termediate Final Due to serious side effects, the FDA has advised against using Levofloxacin to treat uncomplicated UTIs and respiratory tract infections unless there are no alternative treatment options. Nitrofurantoin susceptibility 03/15/2023 14:36:17 256 Resistant Final Piperacillin + Tazobactamsusceptibility 03/15/2023 14:36:17 <=4 Susceptible Final TMP-SMZ susceptibility 03/15/2023 14:36:17 <=20 Suscept ible Final Test: Culture, Urine, Quanti tative
Specimen Source: Urine, Clean Catch
Specimen Type: Urine
Specimen Date: 03/15/2023 2:36 PM
Result Date: 03/18/2023 2:37 PM
Result Status: Final result
Abnormal: Yes
Resulting Lab: [facility] [place]
[address]
[place] [address]

CULTURE

>100,000 colonies/mL Klebsiella aerogenes (Abnormal)

This bacterial species is known to produce a chromosomal AmpC inducible
beta lactamase. Penicillin or cephalosporin use, with the exception of
cefepime, may result in resistance.

<10,000 colonies/ml mixed normal kenneth

SUSCEPTIBILITY

Klebsiella aerogenes
METHOD MICROBROTH DILUTIONS

CEFEPIME <=1 Susceptible
CEFOXITIN -- Resistant
CEFTRIAXONE <=1 Susceptible
CIPROFLOXACIN <=0.25 Susceptible [1]
GENTAMICIN <=1 Susceptible
LEVOFLOXACIN 1 Intermediate [2]
NITROFURANTOIN 256 Resistant
PIPERACILLIN TAZOBACTAM <=4 Susceptible
TRIMETH/SULFAMETHOXAZOLE <=20 Susceptible

[1] Due to serious side effects, the FDA has advised against using
Ciprofloxacin to treat uncomplicated UTIs and respiratory tract infections
unless there are no alternative treatment options.

[2] Due to serious side effects, the FDA has advised against using
Levofloxacin to treat uncomplicated UTIs and respiratory tract infections
unless there are no alternative treatment options.

null Performing Location [facility] [place] [address] [facility] [address]
--- OUTSIDE RECORDS SUMMARY | 2023-04-09 09:44 | External Medical Summary | Summary of Care ---
Author Name Unknown Organization [facility] Address [address] [place] [address] Phone [phone] Care Team Providers Care Product Development Worker Name Role Phone Annabella Victoria DO Primary Care Provider [phone] Reason for Visit * Reason Comments Dosage Adjustment In Person (Anticoag Cl inic) Diabetes Management Encounter Details Date Type Department Care Team (Late st Contact Info) Description 03/19/2023 3:30 PM EST Office Visit Pharmacy, [facility] [place] [address] [place] [address] Pharmacist2, [facility] [address] [place] [address] Type 2 diabetes mellitus with hemoglobin A1c goal of less than 8.0% ([facility])*; Type 2 diabetes mellitus without complication, without long-term current use of insulin (HCC) Allergies Active Allergy Reactions Criticality Noted Date Comments Pollen Other (Please comment) 03/22/2016 Itchy, inflamed eyes Penicillins Rash 03/22/2016 Sulfa Antibiotics Nausea/vomiting 03/22/2016 documented as of this encounter (statuses as of 03/19/2023) Medications Medication Sig Dispensed Refills Start Date [...] hemoglobin A1c goal of less than 8.0% ([facility]) Use as directed. Test Blood [...] complication, without long-term current use of insulin ([facility]),Dyslipidemia Take 1 Tablet by mouth in the morning. 90 Tablet 3 09/06/2022 Active Multivitamin Adults 50+ Oral Tablet Take 1 Tablet by mouth daily. 0 Active metFORMIN HCl ER 500 MG Oral Tablet Extended Release 24 Hour (Glucophage XR)Indications:Type 2 diabetes mellitus with hemoglobin A1c goal of less than 8.0% ([facility]),Type 2 diabetes mellitus without complication, without long-term current use of insulin ([facility]) Take 2 Tablets by mouth 2 times a day with morning and evening meals. 360 Tablet 3 10/09/2022 Active Sodium Fluoride 1.1 % Dental Cream Campbell onto teeth every night at bedtime. 0 Active Mirtazapine 15 MG Oral Tablet (Remeron)Indications: Adjustment disorder with depressed mood Take 1 Tablet by mouth at bedtime. 30 Tablet 5 11/24/2022 Active Tamoxifen Citrate 20 MG Oral TabletIndications:Inf iltrating ductal carcinoma of left breast (HCC),CLL (chronic lymphocytic leukemia) ([facility]) Take 1 Tablet by mouth in the morning. 90 Tablet 5 12/13/2022 Active OneTouch Delica Lancets 33GIndications:Type 2 diabetes mellitus with hemoglobin A1c goal of less than 8.0% ([facility]) Test Blood sugar two to three times per day. E11.9 300 Each 3 12/18/2022 Active Dulaglutide 1.5 MG/0.5ML Subcutaneous Solution Pen-injector ([facility]) Inject 1.5 mg under the skin once a week. 2 mL 5 12/22/2022 Active Repaglinide 0.5 MG Oral Tablet (Prandin)Indications: Type 2 diabetes mellitus with hemoglobin A1c goal of less than 8.0% ([facility]),Type 2 diabetes mellitus without complication, without long-term current use of insulin ([facility]) Take 1 Tablet by mouth daily before breakfast. 90 Tablet 3 02/12/2023 Active OneTouch Verio In Vitro Strip (Glucose Blood)Indications:Typ e 2 diabetes mellitus with hemoglobin A1c goal of less than 8.0% ([facility]) Test Blood sugar two to [...] inj 1,000 mcgIndications:B12 deficiency 1000 mcg IM [id number] 11/24/2022 10/26/2023 Active documented as of this encounter (statuses as of 03/19/2023) Active Problems Problem Noted Date Diagnosed Date [...] sinus infections 05/25/2016 Overview: 05/23>Saw ENT in [place]; CT 2 yrs ago- moved [place] -02/19--zpak,pred 03/22, pred 04/21;doxy 05/23--not on nasacort daily-resume and + claritin Preoperative general physical examination 2016 Overview: 07/21-l-m risk--0.3/-1.7--rpt 3 yrs Type 2 diabetes mellitus wit hout complication, without long-term current use of insulin 04/10/2016 HTN, goal below 140/90 04/10/2016 Dyslipidemia 04/10/2016 Acquired hypothyroidism 04/10/2016 documented as of this encounter (statuses as of 03/19/2023) Resolved Problems Problem Noted Date Diagnosed Date Resolved Date Mammographic microcalcification 10/19/2016 08/13/2018 Overview: 12/21--scattered fibroglandular densities (25% - 50% fibroglandular), dystrophic ca+-rpt 1 yr Closed fracture of proximal end of right humerus with routine healing 10/19/2016 07/23/2018 Overview: 07/25/16 Encounter for screening mamm ogram for breast cancer 05/25/2016 07/23/2018 Overview: 05/2015 [place] Screen for colon cancer 05/25/201607/05 Overview: csope-- 10/05/14- nl, gr 1 IH> At [place]--rpt 10 yrs documented as of this encounter (statuses as of 03/19/2023) Immunizations Name Administration Dates Next Due COVID-19 [...] as of this encounter Progress Notes * Ford Mathewdayo Rohith, [facility] - 03/19/2023 3:25 PM EST Medication Therapy Disease Management [facility] - Diabetes Management Progress Note Sera Plata, identified by name and date of , is a 82 year old female being seen for diabetes management/education. Patient presents for return diabetic visit. DIABETES: Current diabetic medications: Metformin ER 500mg two tablets twice daily Trulicity 1.5mg once weekly START: Repaglinide 0.5mg before breakfast Medication Injection Site: Abdomen Lifestyle: Diet: unchanged Glucose Review/SMBG: Readings obtained from patient documented BG logbook Pre am Post am Pre Lunch Post Lunch Pre pm Post pm HS 75 210 117 169 253 371 120 212 116 233 113 193 112 206 143 281 158 205 127 293 145 207 126 179 120 270 117 176 105 139 91 230 114 105 91 Pre am Post am Pre Lunch Post Lunch Pre pm Post pm HS Average 124 #DIV/0! #DIV/0! #DIV/0! #DIV/0! #DIV/0! 223 Hi 253 0 0 0 0 0 371 Lo 75 0 0 0 0 0 139 Range 178 0 0 0 0 0 232 Hypoglycemia: Does your blood sugar go below 70 mg/dL? No Hyperglycemia symptoms present: none Recent Labs Units 03/14/23 1347 02/12/23 1015 08/28/22 1043 HEMOGLOBIN A1C - [facility] % 8.3* -- -- HEMOGLOBIN A1C POCT - [facility] % -- 9.2* 7.3* Recent Labs Units 03/14/23 1347 12/13/22 1041 09/11/22 0948 ESTIMATED GLOMERULAR FILTRATION RATE - [facility] mL/min 66 61 77 CREATININE - [facility] mg/dL 0.9 0.9 0.8 HYPERTENSION: Patient on ACEi/ARB: yes BP Readings from Last 3 Encounters: 03/14/23 114/68 01/05/23 130/70 12/13/22 156/82 Blood pressure at goal: yes HYPERLIPIDEMIA: Patient is taking moderate or high intensity statin: yes HEALTH MAINTENANCE REVIEW: Health Maintenance Due Topic Date Due Hepatitis B (1 of 3 - Risk 3-dose series) Never done Diabetic Eye Exam 08/15/2022 Influenza Vaccine (FLU shot) (1) 01/05/2023 COVID-19 Vaccine ( season) 2023 ASSESSMENT & PLAN: No diagnosis found. BG Readings - Blood sugars Improving. Patient still has a rise from the low 100s in the AM to the low 200s in the PM. Patient and son were discussing the feasibility of a CGM. At this time unlikely to be covered due to patient not using insulin (patient declines starting insulin as well). Patient'sson to check on cantrell jackson of various brands. Medications - Reviewed current regimen, patient is adherent to regimen. Patient requests no changesat this time. Discussed patient holding her oral meds prior to her dental surgery. Dicussed what to do in the event of low BG (drinking sugary drinks or eating a glucose tab) Diet, Exercise, Lifestyle - No significant lifestyle changes since last visit. Patient is agreeable to SMBG 1-2 time(s) daily. Patient aware to contact clinic if any hypoglycemia before next visit. MEDICATION CHANGES: no change Diabetic Medications: Metformin ER 500mg two tablets twice daily Trulicity 1.5mg once weekly Repaglinide 0.5mg before breakfast HEALTH MAINTENANCE INTERVENTIONS: Labs: Up to Date Immunizations: Up to Date Foot Exam: Up to Date Eye Exam: Up to Date Annual Wellness Visit: N/A FOLLOW UP: Return to clinic in 8 weeks 05/14/2023 Trav [facility] Clinical Pharmacist - National Sales Associate Medication Therapy Management Clinic 03/19/2023, 3:25 PM documented in this encounter Plan of Treatment Upcoming Encounters Date Type Department Care Team (Late st Contact Info) Description 03/21/2023 2:30 PM EST Office Visit Hematology/Oncology [facility] [place] [address] [place] [address] Macey Cruz MD [address] [place] [address] 03/27/2023 11:45 AM EST Office Visit Cardiology, [facility] [address] [place] [address] Kimmy López DO [address] [place] [address] 05/14/2023 3:30 PM EST Office Visit Pharmacy, [facility] [address] [place] [address] Pharmacist2, [facility] [address] [place] [address] 05/17/2023 4:00 PM EST Telemedicine [facility]edics [facility] [address] [facility] [place] [address] Dano Dueñas MD [address] [place] [phone] 05/30/2023 11:00 AM EST Imaging Radiology [facility] [facility] [address] [place] [address] 06/04/2023 2:30 PM EST Nutrition Services Nutrition, [facility] [address] [facility] [place] [address] Monica Perry, LEON [address] [place] [address] 06/13/2023 10:30 AM EST Office Visit General Surgery, [facility] [address] [place] [address] Myke Pulliam MD [address] [place] [address] 06/20/2023 11:00 AM EST Immunization/Injection Hematology/Oncology Treatment, [place] [address] [place] [address] Nurse, Med 4 [address] [facility] [place] [address] 08/29/2023 5:00 PM EDT Office Visit Family Practice [facility] [address] [place] [address] Annabella Victoria DO [address] [place] [address] 09/25/2023 9:30 AM EDT Cardiac Studies Cardiology, [facility] [address] [place] [address] [facility] [address] [place] [address] Health Maintenance Due Date Last Done Comments [...] 10/2021, 11/02/2020, Additional history exists Albumin/Creatinine Ratio 03/15/20242 023, 05/10/2021, 09/27/2017, Additional history exists DXA Scan 10/18/2024 10/18/2022, 07/06, 02/19/2012 DTaP,Tdap,and Td Vaccines (2 - Td or Tdap) 05/26/2025 05/26/2015 Pneumococcal Vaccine: 65+ Years Completed 05/19/2014, 09/17/2012, 05/26/2002 Zoster Vaccines Completed 03/25/2019, 11/05, 02/01/2007 VITAMIN D LEVEL ONCE IN A LIFETIME-USE SMARTSET# [id number] Completed 11/14/2022 GARDASIL-HPV IMMUNIZATION SERIES Aged Out No longer eligible based on patient's age to complete this topic MENINGOCOCCAL (MENACTRA/MENVEO) Aged Out No longer eligible based on patient's age to complete this topic documented as of this encounter Medical Devices Implanted Type [employer] Device Identifier Shelf Expiration Date Model / Serial / Lot Lens Intraoc 19.0 - [id number] - [id number] Implanted:Qty: 1 on 12/13/2021 by Mitchell Guzman MD at OR [facility] Left: Eye [employer] 06/06/2026 [id number] / [id number] / [id number] Lens Intraoc 19.0 - [id number] - [id number] Implanted:Qty: 1 on 12/27/2021 by Mitchell Guzman MD at OR [facility] Right: Eye [employer] 06/06/2026 [id number] / [id number] / [id number] documented as of this encounter Visit Diagnoses Diagnosis Type 2 diabetes mellitus with hemoglobin A1c goal of less than 8.0% (HCC)- Primary Type 2 diabetes mellitus without complication, without [...] the patient have Health Care Power of Accounting Office Manager? No Code Status History Code Status Date Activated Date Inactivated Comments No Code 12/13/2021 6:43 AM 12/13/2021 1:23 PM This or tim reflects the patients wishes and were consensually agreed upon. Question Answer Comments Discussion of Advance Directives occurred with: Patient Does the patient have a Living Will? No Does the patient have Health Care Power of Accounting Office Manager? No Care Teams Product Development Worker Relationship Specialty Start Date End Date Annabella Victoria DO [address] [place] [address] PCP - General Family Medicine 07/19/17 documented as of this encounter
--- OUTSIDE RECORDS SUMMARY | 2023-04-09 09:44 | External Medical Summary | Summary of Care ---
Author Name Unknown Organization [facility] Address [address] [place] [address] Phone [phone] Care Team Providers Care Recruiting Administrator Name Role Phone Annabella Victoria DO Primary Care Provider [phone] Reason for Visit * Reason Comments Follow Up 3m Encounter Details Date Type Department Care Team (Late st Contact Info) Description 03/21/2023 2:30 PM EST Office Visit Hematology/Oncology [facility] [place] [address] [facility] [place] [address] Macey Cruz MD [address] [facility] [place] [address] CLL (chronic lymphocytic leukemia) ([facility])*; Infiltrating ductal carcinoma of left breast ([facility]) Allergies Active Allergy Reactions Criticality Noted Date Comments Pollen Other (Please comment) 03/22/2016 Itchy, inflamed eyes Penicillins Rash 03/22/2016 Sulfa Antibiotics Nausea/vomiting 03/22/2016 documented as of this encounter (statuses as of 03/21/2023) Medications Medication Sig Dispensed Refills Start Date End Date Status Omeprazole Magnesium 20 MG Oral Tablet Delayed Release (PriLOSEC OTC) Take 1 Tablet by mouth as needed for Heartburn. 0 Active Trulicity 1.5 MG/0.5ML Subcutaneous Solution Pen-injector (Dulaglutide)Indicati ons:Type 2 diabetes mellitus with hemoglobin A1c goal of less than 8.0% ([facility]) Inject under the skin 1.5 mg once a week . Do not start before April 03, 2022. 6 mL 3 04/03/2022 Active OneTouch Verio Reflect w/Device KitIndications:Type 2 diabetes mellitus with hemoglobin A1c goal of less than 8.0% ([facility]) Use as directed. Test Blood [...] complication, without long-term current use of insulin ([facility]),Dyslipidemia Take 1 Tablet by mouth in the morning. 90 Tablet 3 09/06/2022 Active Multivitamin Adults 50+ Oral Tablet Take 1 Tablet by mouth daily. 0 Active metFORMIN HCl ER 500 MG Oral Tablet Extended Release 24 Hour (Glucophage XR)Indications:Type 2 diabetes mellitus with hemoglobin A1c goal of less than 8.0% ([facility]),Type 2 diabetes mellitus without complication, without long-term current use of insulin ([facility]) Take 2 Tablets by mouth 2 times a day with morning and evening meals. 360 Tablet 3 10/09/2022 Active Sodium Fluoride 1.1 % Dental Cream Golden onto teeth every night at bedtime. 0 Active Mirtazapine 15 MG Oral Tablet (Remeron)Indications: Adjustment disorder with depressed mood Take 1 Tablet by mouth at bedtime. 30 Tablet 5 11/24/2022 Active Tamoxifen Citrate 20 MG Oral TabletIndications:Inf iltrating ductal carcinoma of left breast (HCC),CLL (chronic lymphocytic leukemia) ([facility]) Take 1 Tablet by mouth in the morning. 90 Tablet 5 12/13/2022 Active OneTouch Delica Lancets 33GIndications:Type 2 diabetes mellitus with hemoglobin A1c goal of less than 8.0% ([facility]) Test Blood sugar two to three times per day. E11.9 300 Each 3 12/18/2022 Active Dulaglutide 1.5 MG/0.5ML Subcutaneous Solution Pen-injector (Trulicity) Inject 1.5 mg under the skin once a week. 2 mL 5 12/22/2022 Active Repaglinide 0.5 MG Oral Tablet (Prandin)Indications: Type 2 diabetes mellitus with hemoglobin A1c goal of less than 8.0% ([facility]),Type 2 diabetes mellitus without complication, without long-term current use of insulin ([facility]) Take 1 Tablet by mouth daily before breakfast. 90 Tablet 3 02/12/2023 Active OneTouch Verio In Vitro Strip (Glucose Blood)Indications:Typ e 2 diabetes mellitus with hemoglobin A1c goal of less than 8.0% ([facility]) Test Blood sugar two to [...] inj 1,000 mcgIndications:B12 deficiency 1000 mcg IM [id number] 11/24/2022 10/26/2023 Active documented as of this encounter (statuses as of 03/21/2023) Active Problems Problem Noted Date Diagnosed Date [...] sinus infections 05/25/2016 Overview: 05/23>Saw ENT in [place]; CT 2 yrs ago- moved [place] -02/19--zpak,pred 03/22, pred 04/21;doxy 05/23--not on nasacort daily-resume and + claritin Preoperative general physical examination 2016 Overview: 07/21-l-m risk--0.3/-1.7--rpt 3 yrs Type 2 diabetes mellitus wit hout complication, without long-term current use of insulin 04/10/2016 HTN, goal below 140/90 04/10/2016 Dyslipidemia 04/10/2016 Acquired hypothyroidism 04/10/2016 documented as of this encounter (statuses as of 03/21/2023) Resolved Problems Problem Noted Date Diagnosed Date Resolved Date Mammographic microcalcification 10/19/2016 08/13/2018 Overview: 12/21--scattered fibroglandular densities (25% - 50% fibroglandular), dystrophic ca+-rpt 1 yr Closed fracture of proximal end of right humerus with routine healing 10/19/2016 07/23/2018 Overview: 07/25/16 Encounter for screening mamm ogram for breast cancer 05/25/2016 07/23/2018 Overview: 05/2015 [place] Screen for colon cancer 05/25/201607/05 Overview: csope-- 10/05/14- nl, gr 1 IH> At [place]--rpt 10 yrs documented as of this encounter (statuses as of 03/21/2023) Immunizations Name Administration Dates Next Due COVID-19 [...] Date Smoking Tobacco: Never Smokeless Tobacco: Never Tobacco Cessation:Counseling Given: Not Answered Alcohol Use Standard Drinks/Week Comments Yes 0 [...] on file documented as of this encounter Last Filed Vital Signs Vital Sign Reading Time Taken Comments Blood Pressure 141/76 03/21/2023 2:24 PM EST Pulse 73 03/21/2023 2:24 PM EST Temperature 36.7 C (98 F) 03/21/2023 2:24 PM EST Respiratory Rate 16 03/21/2023 2:24 PM EST Oxygen Saturation 96% 03/21/2023 2:24 PM EST Inhaled Oxygen Concentration - - Weight 60.5 kg (133 lb 6.4 oz) 03/21/2023 2:24 P M EST Height 148.6 cm (4' 10.5") 03/21/2023 2:24 PM ES T Body Mass Index 27.41 03/21/2023 2:24 PM EST documented in this encounter Progress Notes * Macey Cruz MD - 03/21/2023 2:40 PM EST Images from the original note were not included. Outpatient Consult Note Data Source: Patient, Epic record. Data Source: Patient, Epic record. 03/21/2023 2:40 PM [place] [id number] 82 year old Patient Encounter: HEMATOLOGY/ONCOLOGY [facility] Cancer Diagnosis: - Left breast cancer, status post partial mastectomy and sentinel lymph biopsy. She has stage pT1 pN0 disease with ER/MS positive and HER2 Otis negative. 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 Started 12/2022. DEXA bone density scan shows the risk of fracture was high. Prolia Previous Treatment: Status post partial mastectomy and sentinel lymph node biopsy followed by radiation therapy Oncologic History : 82-year-old female with a past medical history significant for cardiovascular disease, diabetes, hypertension, CLL and hypothyroidism was referred with recent diagnosis of left breast cancer which was found on the screening mammogram. She had targeted ultrasound and mammogram done which revealed hypoechoic mass within the left breast 1 o'clock 4 cm from the nipple measures 5 x 5 x 6 mm. This findi ng is felt to correspond with mammographic finding. Ultrasound-guided core biopsy was done on 06/22/2022 and pathology was consistent with invasive carcinoma, no special type, grade 2. 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 ER/MS was positive and HER2 Otis negative. Final Diagnosis A. Breast, Left, Left breast 1:00 4cm FN, core biopsy: Invasive carcinoma, no special type, grade 2 Focal ductal in-situ, nuclear grade 2. 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 Lymph nodes were negative for metastatic disease. Final Diagnosis A. Lymph node, left sentinel node #1, count 1600, excision: One benign lymph node, negative for metastatic carcinoma (0/1). Immunostains for CK-AE1/AE3 are negative. B. Lymph node, left sentinel node #2, count 300, excision: One benign lymph node, negative for metastatic carcinoma (0/1). An immunostain for CK-AE1/AE3 is negative. C. Lymph node, left sentinel node #3, count 350, excision: Two benign lymph nodes, negative for metastatic carcinoma (0/2). Immunostains for CK-AE1/AE3 are negative. D. Breast, left, lumpectomy: Invasive mammary carcinoma of no special type (ductal), grade 3, 1.7 cm in greatest dimension. Focal ductal carcinoma in situ (DCIS), grade 2. Biopsy site changes and biopsy clip identified. Surgical margins negative. Pathologic stage (AJCC 8th edition): pT1c pN0(sn) See comment and synoptic report. Tumor Size Greatest dimension of largest invasive focus (Millimeters): 17 mm Ductal Carcinoma In Situ (DCIS) Present Negative for extensive intraductal component (EIC) Size (Extent) of DCIS Cannot be determined Number of Blocks with DCIS 3 Architectural Patterns Cribriform Solid Nuclear Grade Grade II (intermediate) Necrosis Present, focal (small foci or single cell necrosis) Regional Lymph Node Status All regional lymph nodes negative for tumor Total Number of Lymph Nodes Examined (sentinel and non-sentinel) 4 Number of [place] Nodes Examined 4 pT Category pT1c Regional Lymph Nodes Modifier (sn): [place] node(s) evaluated. pN Category pN0 Patient was recently admitted to the hospital with the heart block status post placement of pacemaker. Her history is also significant for high white cell count and flow cytometry was consistent with high monoclonal B-cell lymphocytosis/CLL. Whole blood, peripheral smear: Peripheral blood involvement by B-cell clone Flow cytometry analysis of whole blood demonstrates a significant population of monoclonal B cells,favor a high MBL (monoclonal B cell lymphocytosis, CLL[chronic lymphocytic leukemia]-like phenotype). See Comment. COMMENT: The findings can be seen in high count MBL, B cell CLL or other underlying other B cell proliferative disorder. If clinically the patient is found to have no history of CLL, no associated lymphadenopathy, organomegaly, extramedullary involvement or any other features of lymphoproliferativedisorder, the diagnosis of high count MBL for the patient is favored. The high count MBL has biologic features identical to those of low-stage (Torres stage 0) CLL, and progresses to dina leukemia requiring therapy at an annual rate of 1-2% by 2016 WHO. IGVH Status UNMUTATED Social history she denies any smoking or drinking. Family history significant for father who of lung cancer. He used to be smoker. Her also of the metastatic melanoma. Interval History: She is issues with the shoulder pain and received the steroid injection. Otherwise clinically she is doing well without any new symptoms of complain. She continued taking tamoxifen with good tolerance and without any significant side effects toxicity. Denies any headache, dizziness, blurred vision,chest pain, shortness breath palpitation abdominal pain or distention, bleeding, bruising. She was also diagnosed of UTI and currently on cefdinir. LABS/IMAGING: Results for orders placed or performed in visit on 03/15/23 CULTURE, URINE, QUANTITATIVE Specimen: Urine, Clean Catch Result Value Ref Range Culture Growth >100,000 colonies/mL Klebsiella aerogenes (A) Susceptibility Klebsiella aerogenes - MICROBROTH DILUTIONS Cefepime Susceptible Cefoxitin Resistant Ceftriaxone Susceptible Ciprofloxacin* Susceptible * Due to serious side effects, the FDA has advised against using Ciprofloxacin to treat uncomplicated UTIs and respiratory tract infections unless there are no alternative treatment options. Gentamicin Susceptible Levofloxacin* Intermediate * Due to serious side effects, the FDA has advised against using Levofloxacin to treat uncomplicated UTIs and respiratory tract infections unless there are no alternative treatment options. Nitrofurantoin Resistant Piperacillin Tazobactam Susceptible Trimeth/Sulfamethoxazole Susceptible ALBUMIN / CREATININE RATIO, URINE Result Value Ref Range Albumin, Random Urine 10.74 mg/dL Creatinine, Random Urine 88 mg/dL Albumin / Creatinine Ratio, Urine 122 (H) <30 mg/g Creat Last CBC done on 03/14/2023 which shows WBC count 10.5, hemoglobin 13.7 and platelet count 198. Differential all within normal limit including normal lymphocyte count. Creatinine is 0.9 and the rest of the electrolytes and LFTs are within normal limit. LDH was normal. REVIEW OF SYSTEMS: General: No Fever, chills, night sweats, or weight loss. HEENT: No change in visual acuity, blurred or double vision. No epistaxis, facial pain, nasal discharge or change in hearing. Denies dysphagia, no muscosal ulceration, or sores noted. Cardiovascular: No chest pain, FLAHERTY, or palpitations Respiratory: No shortness of breath, cough, hemoptysis, or pleuritic chest pain Gastrointestinal: No abdominal pain, nausea, vomiting, diarrhea, rectal pain or bleeding Genitourinary: Denies Hematuria or dysuria Musculoskeletal: Joint pain Psychiatric: No vegetative signs of depression Endocrine: No symptoms of hypothyroidism or hyperglycemia Hematologic: No bleeding or lymph nodes noted As mentioned above, all of the systems were reviewed in full and are unremarkable. Past Medical History: Diagnosis Date Breast cancer ([facility]) 2022 Left breast Closed fracture of proximal end of right humerus with routine healing 10/19/2016 07/25/16 Diabetes ([facility]) Dyslipidemia Hypertension Hypothyroid Current Outpatient Medications Medication Sig Dispense Refill Omeprazole Magnesium 20 MG Oral Tablet Delayed Release (PriLOSEC OTC) Take 1 Tablet by mouth as needed for Heartburn. Trulicity 1.5 MG/0.5ML Subcutaneous Solution Pen-injector (Dulaglutide) Inject under the skin 1.5 mg once a week . Do not start before April 03, 2022. 6 mL 3 [employer] Verio Reflect w/Device Kit Use as directed. [...] 3 Sodium Fluoride 1.1 % Dental Cream Golden onto teeth every night at bedtime. Mirtazapine 15 MG Oral Tablet (Remeron) Take 1 Tablet by mouth at bedtime. 30 Tablet 5 Tamoxifen Citrate 20 MG Oral Tablet Take 1 Tablet by mouth in the morning. 90 Tablet 5 OneTouch Delica Lancets 33G Test Blood sugar two to three times per day. E11.9 300 Each 3 Dulaglutide 1.5 MG/0.5ML Subcutaneous Solution Pen-injector (Liiiike) Inject 1.5 mg under the skin once [...] Chewable (Calcium-Vitamin D-Vitamin K) Take by mouth. Cefdinir 300 MG Oral Capsule (Omnicef) Take 1 Capsule by mouth in the morning and 1 Capsule before bedtime. Do all this for 7 days. For 10 days.. 14 Capsule 0 Current Facility-Administered Medications Medication Dose Route Frequency Provider Last Rate Last Admin vitamin b-12 (Cyanocobalamin) inj 1,000 mcg 1,000 mcg Intramuscular Q4 Weeks Jacey Dunn CRNP 1,000 mcg at 03/14/23 1513 Social History Tobacco Use Smoking status: Never Smokeless tobacco: Never Vaping Use Vaping Use: Never used Substance Use Topics Alcohol use: Yes Comment: rarely Drug use: No Review of patient's allergies indicates: Allergen Reactions Hay Fever [Pollen] Other (Please comment) Itchy, inflamed eyes Penicillins Rash Sulfa Antibiotics Nausea/vomiting PHYSICAL EXAMINATION: General Appearance: Healthy appearing patient in no acute distress BP 141/76 (BP Site: Left Arm, BP Position: Sitting, BP Cuff Size: Regular) | Pulse 73 | Temp 36.7 C (98 F) (Oral) | Resp 16 | Ht 1.486 m (4' 10.5") | Wt 60.5 kg (133 lb 6.4 oz) | SpO2 96% | BMI 27.41 kg/m | BSA 1.58 m Vitals reviewed. HEENT: No oral or pharyngeal masses, ulceration or thrush noted, no sinus tenderness. Neck is supple with no thyromegaly or JVD noted. Lymph Nodes: No lymphadenopathy noted in the occipital, pre and post auricular, cervical, supra andinfraclavicular, axillary, epitrochlear, inguinal, and popliteal region. Lungs/Thorax: Clear to auscultation, no accessory muscles of respiration being used. Heart: Regular rate and rhythm, normal S1, S2 Abdomen: Soft, nontender, bowel sounds present, no appreciable hepatosplenomegaly, no palpable masses Extremeties: Good pulses bilaterally, no peripheral edema. ASSESSMENT: 82-year-old female with a past medical history significant for hypothyroidism, hypertension, cardiovascular disease was recently diagnosis the left breast cancer which was found on screening mammogram. She underwent partial mastectomy and sentinel lymph node biopsy and pathology is consistent with 1.7 cm invasive ductal carcinoma, no special type, grade 3 with ER/MS positive and HER2 Otis negative. She is stage pT1 pN0 disease. Her history is also significant for monocytosis/CLL and currently under observation. DEXA bone density scan shows risk of fracture is high. She is receiving Prolia for osteoporosis. Currently she is on tamoxifen with good tolerance without any significant side effects toxicity. Her blood counts are all in acceptable and normal range. Total WBC count and differential are also normal. Discussed with the patient and son in detail about the diagnosis reviewed all the available blood test result with him. PLAN: Will return to clinic in 6 months with CBC, CMP and LDH. The patient voiced understanding of all of the above. All questions and concerns were addressed in an apparently satisfactory manner. Macey Cruz MD (This note was completed using the dictation program Fluency Direct. As such, there may be misspellings, word substitutions, or other variations that should not change the essence of the clinical content of this encounter note. If there is need for further clarification, please direct questions to me.) documented in this encounter Nursing Notes * Torie Davidson CMA - 03/21/2023 2:25 PM EST Patient identifed by name and birthdate Do you have any concerns about pain management for today's visit? No Living Will or Advance Directive for Health Care as noted on the problem list. [employer] is a way you can talk to your provider on line through e-mail. Would you like to sign up? I can activate it for you? ALREADY ACTIVE Filed Vitals: 03/21/23 1424 BP: 141/76 Pulse: 73 Resp: 16 Temp: 36.7 C (98 F) TempSrc: Oral SpO2: 96% Weight: 60.5 kg (133 lb 6.4 oz) Height: 1.486 m (4' 10.5") Patient was instructed to not get up on the exam table/exam chair until directed and assisted by their provider; patient is to remain seated in the chair/ wheelchair/ exam table/ exam chair for fall prevention and safety reasons. Patient is aware to have assistance to step down off exam table/exam chair with personnel. Patient voiced full comprehension of instructions. documented in this encounter Plan of Treatment Upcoming Encounters Date Type Department Care Team (Late st Contact Info) Description 03/27/2023 11:45 AM EST Office Visit Cardiology, [facility] [address] [facility] [place] [address] Kimmy López, [address] [place] [phone] 05/14/2023 3:30 PM EST Office Visit Pharmacy, [facility] [place] [address] [place] [address] Pharmacist2, [facility] [address] [place] [address] 05/17/2023 4:00 PM EST Telemedicine Orthopaedics [facility] [address] [place] [address] Dano Dueñas MD [address] [place] [phone] 05/30/2023 11:00 AM EST Imaging Radiology [facility] 1st Floor, [place] [facility] [place] [address] 06/04/2023 2:30 PM EST Nutrition Services Nutrition, [facility] [address] [facility] [place] [address] Monica Perry, LEON [address] [place] [address] 06/13/2023 10:30 AM EST Office Visit General Surgery, [facility] [address] [facility] [place] [address] Myke Pulliam MD [address] [place] [address] 06/20/2023 11:00 AM EST Immunization/Injection Hematology/Oncology Treatment, [place] [address] [place] [address] Nurse, Med [address] [place] [address] 08/29/2023 5:00 PM EDT Office Visit Family Practice [facility] [address] [place] [address] Annabella Victoria DO [address] [place] [address] 09/12/2023 11:00 AM EDT Laboratory Laboratory [facility] [address] [place] [phone] [address] [place] [address] [facility] [place] [address] 09/19/2023 12:30 PM EDT Office Visit Hematology/Oncology [facility] [place] [address] [place] [address] Macey Cruz MD [address] [place] [address] 09/25/2023 9:30 AM EDT Cardiac Studies Cardiology, [facility] [address] [facility] [place] [address] [facility] [address] [facility] [place] [address] Scheduled Orders Name Type Priority Associated Diagnoses Orde r Schedule CBC WITH WBC DIFFERENTIAL Lab Routine CLL (chronic lymphocytic leukemia) (HCC) Infiltrating ductal carcinoma of left breast (HCC) Expected: 09/17/2023, Expires: 04/20/2024 COMPREHENSIVE METABOLIC PANEL Lab Routine CLL (chronic lymphocytic leukemia) (HCC) Infiltrating ductal carcinoma of left breast (HCC) Expected: 09/17/2023, Expires: 04/20/2024 LD Lab Routine CLL (chronic lymphocytic leukemia) (HCC) Infiltrating ductal carcinoma of left breast (HCC) Expected: 09/17/2023, Expires: 04/20/2024 Health Maintenance Due Date Last Done Comments [...] D LEVEL ONCE IN A LIFETIME-USE SMARTSET# [id number] Completed 11/14/2022 GARDASIL-HPV IMMUNIZATION SERIES Aged Out No longer eligible based on patient's age to complete this topic MENINGOCOCCAL (MENACTRA/MENVEO) Aged Out No longer eligible based on patient's age to complete this topic documented as of this encounter Medical Devices Implanted Type Area Contract Engineer Device Identifier Shelf Expiration Date Model / Serial / Lot Lens Intraoc 19.0 - [id number] - [id number] Implanted:Qty: 1 on 12/13/2021 by Mitchell Guzman MD at OR [facility] Left: Eye [employer] 06/06/2026 [id number] / [id number] / [id number] Lens Intraoc 19.0 - [id number] - [id number] Implanted:Qty: 1 on 12/27/2021 by Mitchell Guzman MD at OR [facility] Right: Eye [employer] 06/06/2026 [id number] / [id number] / [id number] documented as of this encounter Visit Diagnoses Diagnosis CLL (chronic lymphocytic leukemia) (HCC)- Primary Chronic lymphoid leukemia, without mention of having achieved remission Infiltrating ductal carcinoma of left breast (HCC) documented in this encounter Advance Directives [...] the patient have Health Care Power of Net Ui Developer? No Code Status History Code Status Date Activated Date Inactivated Comments No Code 12/13/2021 6:43 AM 12/13/2021 1:23 PM This or tim reflects the patients wishes and were consensually agreed upon. Question Answer Comments Discussion of Advance Directives occurred with: Patient Does the patient have a Living Will? No Does the patient have Health Care Power of Net Ui Developer? No Care Teams Recruiting Administrator Relationship Specialty Start Date End Date Annabella [place] DO [address] [facility] [place] [address] PCP - General Family Medicine 07/19/17 documented as of this encounter
--- OUTSIDE RECORDS SUMMARY | 2023-04-09 09:44 | External Medical Summary ---
Author Name Unknown Address Unknown Organization [id number]:[facility] [address] [place] [address] Laboratory Report Ordering Provider Test Date Status NAN MALIN 03/14/2023 13:47:36 Final Observation Date Value Abnormality Reference (Units ) Status BUN 03/14/2023 13:47:36 13 6-20 (mg/dL) Final Creatinine 03/14/2023 13:47:36 0.9 0.5-1.0 (mg/dL) Final Glomerular filtration rate/1.73 sq M.predicted [Volume Rate/Area] in Serum, Plasma or Blood by Creatinine-based formula (CKD-EPI) 03/14/2023 13:47:36 66 >=60 (mL/min) Final eGFR is calculated based on the CKD-EPI 2020 equation SODIUM 03/14/2023 13:47:36 139 135-146 (m mol/L) Final Potassium 03/14/2023 13:47:36 4.2 3.5-5.1 (m mol/L) Final Cl 03/14/2023 13:47:36 100 98-107 (mm ol/L) Final CO2 03/14/2023 13:47:36 26 22-32 (mmo l/L) Final Anion gap 03/14/2023 13:47:36 13 7-15 (mmol /L) Final Glucose 03/14/2023 13:47:36 125 Above high normal 70 -120 (mg/dL) Final Albumin 03/14/2023 13:47:36 3.7 Below low normal 3.8 -5.0 (g/dL) Final AST (Aspartate aminotransferase) 03/14/2023 13:47:36 26 10-35 (U/L) Fin al Alk Phos 03/14/2023 13:47:36 81 35-130 (U/ L) Final Bilirubin, Total 03/14/2023 13:47:36 0.3 <=1 .2 (mg/dL) Final Calcium 03/14/2023 13:47:36 9.7 8.4-10.2 ( mg/dL) Final Protein 03/14/2023 13:47:36 6.6 6.0-8.3 (g /dL) Final ALT (Alanine aminotransferase) 03/14/2023 13:47:36 29 10-35 (U/L) Cornell edmondson Performing Location LAB[facility]ATORY [place] [address] [facility] [address]
--- OUTSIDE RECORDS SUMMARY | 2023-04-09 09:44 | External Medical Summary ---
Author Name Unknown Address Unknown Organization [id number]:[facility] [address] [place] [address] Laboratory Report Ordering Provider Test Date Status NAN MALIN 03/14/2023 13:47:36 Final Observation Date Value Abnormality Reference (Units ) Status WBC, Total 03/14/2023 13:47:36 10.55 4.00-10.8 0 (K/uL) Final RBC 03/14/2023 13:47:36 4.64 3.85-5.15 (M/uL) Final Hemoglobin 03/14/2023 13:47:36 13.7 12.0-15.3 (g/dL) Final HCT 03/14/2023 13:47:36 41.7 36.0-45.2 (%) Final MCV 03/14/2023 13:47:36 89.9 81.5-97.5 (fL) Final MCH 03/14/2023 13:47:36 29.5 27.0-34.0 (pg) Final MCHC 03/14/2023 13:47:36 32.9 32.0-36.0 (g/dL) Final RDW 03/14/2023 13:47:36 14.3 11.5-15.5 (%) Final Platelets 03/14/2023 13:47:36 198 140-400 (K /uL) Final MPV 03/14/2023 13:47:36 10.1 6.6-11.1 ( fL) Final Performing Location [facility]ATORY [facility] [address] [place] [address]
--- OUTSIDE RECORDS SUMMARY | 2023-04-09 09:44 | External Medical Summary ---
Author Name Unknown Address Unknown Organization [id number]:[facility] [address] [place] [address] Laboratory Report Ordering Provider Test Date Status NAN MALIN 03/14/2023 13:47:36 Final Observation Date Value Abnormality Reference (Units ) Status Phosphate 03/14/2023 13:47:36 3.0 2.5-4.8 (m g/dL) Final Performing Location [facility] - [address] [place] [address]
--- OUTSIDE RECORDS SUMMARY | 2023-04-09 09:44 | External Medical Summary ---
Author Name Unknown Address Unknown Organization K01:[facility] [address] [place] [address] Laboratory Report Ordering Provider Test Date Status NAN MALIN 03/14/2023 13:47:36 Final Observation Date Value Abnormality Reference (Units ) Status LDH 03/14/2023 13:47:36 160 <=250 (U/L ) Final Performing Location [facility] - [address] [place] [address]
--- OUTSIDE RECORDS SUMMARY | 2023-04-09 09:44 | External Medical Summary | Summary of Care ---
Author Name Unknown Organization [facility] Address [address] [place] [address] Phone [phone] Care Team Providers Care Physician Office Rep Name Role Phone Annabella Victoria DO Primary Care Provider [phone] Reason for Visit * Reason Comments Outpatient Testing Encounter Details Date Type Department Care Team (Late st Contact Info) Description 03/14/2023 1:40 PM EST Laboratory Laboratory, [facility] [address] [place] [id number] [facility] [address] [place] [address] Infiltrating ductal carcinoma of left breast ([facility]); Osteoporosis with symptom management only; CLL (chronic lymphocytic leukemia) ([facility]); Type 2 diabetes mellitus with hemoglobin A1c goal of less than 8.0% ([facility]) Allergies Active Allergy Reactions Criticality Noted Date Comments Pollen Other (Please comment) 03/22/2016 Itchy, inflamed eyes Penicillins Rash 03/22/2016 Sulfa Antibiotics Nausea/vomiting 03/22/2016 documented as of this encounter (statuses as of 03/14/2023) Medications Medication Sig Dispensed Refills Start Date End Date Status Omeprazole Magnesium 20 MG Oral Tablet Delayed Release (PriLOSEC OTC) Take 1 Tablet by mouth as needed for Heartburn. 0 Active ProAir HFA 108 (90 Base) MCG/ACT Inhalation Aerosol Solution Inhale 2 Puffs by mouth every 4 hours as needed for Wheezing. 18 g 1 11/22/2020 Active Trulicity 1.5 MG/0.5ML Subcutaneous Solution Pen-injector (Dulaglutide)Indicati ons:Type 2 diabetes mellitus with hemoglobin A1c goal of less than 8.0% ([facility]) Inject under the skin 1.5 mg once a week . Do not start before April 03, 2022. 6 mL 3 04/03/2022 Active OneTouch Verio Reflect w/Device KitIndications:Type 2 diabetes mellitus with hemoglobin A1c goal of less than 8.0% ([facility]) Use as directed. Test Blood sugar one [...] complication, without long-term current use of insulin (HCC),Dyslipidemia Take 1 Tablet by mouth in the morning. 90 Tablet 3 09/06/2022 Active Letrozole 2.5 MG Oral Tablet (Femara)Indications:I nfiltrating ductal carcinoma of left breast (HCC),CLL (chronic lymphocytic leukemia) ([facility]) Take 1 Tablet by mouth in the morning. 90 Tablet 5 09/12/2022 Active Multivitamin Adults 50+ Oral Tablet Take 1 Tablet by mouth daily. 0 Active metFORMIN HCl ER 500 MG Oral Tablet Extended Release 24 Hour (Glucophage XR)Indications:Type 2 diabetes mellitus without complication, without long-term current use of insulin ([facility]) Take 1 Tablet by mouth 2 times a day with morning and evening meals. Take in addition to medication in pill pack until completed. 14 Tablet 0 10/09/2022 Active metFORMIN HCl ER 500 MG Oral Tablet Extended Release 24 Hour (Glucophage XR)Indications:Type 2 diabetes mellitus with hemoglobin A1c goal of less than 8.0% ([facility]),Type 2 diabetes mellitus without complication, without long-term current use of insulin ([facility]) Take 2 Tablets by mouth 2 times a day with morning and evening meals. 360 Tablet 3 10/09/2022 Active Sodium Fluoride 1.1 % Dental Cream [place] onto teeth every night at bedtime. 0 Active Nystatin-Triamcinolon e 061179-3.1 UNIT/GM-% External Cream (Mycolog) APPLY TOPICALLY 4 TIMES DAILY FOR RASH UNDER BREAST 0 10/30/2022 Active SSD 1 % External Cream APPLY 1.5MM THICKNESS TWICE DAILY FOR RADIATIONS DERMATITIS 0 11/13/2022 Active Mirtazapine 15 MG Oral Tablet (Remeron)Indications: Adjustment disorder with depressed mood Take 1 Tablet by mouth at bedtime. 30 Tablet 5 11/24/2022 Active Tamoxifen Citrate 20 MG Oral TabletIndications:Inf iltrating ductal carcinoma of left breast ([facility]),CLL (chronic lymphocytic leukemia) ([facility]) Take 1 Tablet by mouth in the morning. 90 Tablet 5 12/13/2022 Active OneTouch Dellola Lancets 33GIndications:Type 2 diabetes mellitus with hemoglobin A1c goal of less than 8.0% ([facility]) Test Blood sugar two to three times per day. E11.9 300 Each 3 12/18/2022 Active Dulaglutide 1.5 MG/0.5ML Subcutaneous Solution [facility] Inject 1.5 mg under the skin once a week. 2 mL 5 12/22/2022 Active Repaglinide 0.5 MG Oral Tablet (Prandin)Indications: Type 2 diabetes mellitus with hemoglobin A1c goal of less than 8.0% ([facility]),Type 2 diabetes mellitus without complication, without long-term current use of insulin ([facility]) Take 1 Tablet by mouth daily before breakfast. 90 Tablet 3 02/12/2023 Active OneTouch Verio In Vitro Strip (Glucose Blood)Indications:Typ e 2 diabetes mellitus with hemoglobin A1c goal of less than 8.0% ([facility]) Test Blood sugar two to three times per day. E11.9 300 Strip 3 03/13/2023 Active Hospital, Clinic, or Other Facility Administered Medication Ordered Dose Route Frequency Start Date End Date Status vitamin b-12 (Cyanocobalamin) inj 1,000 mcgIndications:B12 deficiency 1000 mcg IM [id number] 11/24/2022 10/26/2023 Active documented as of this encounter (statuses as of 03/14/2023) Active Problems Problem Noted Date Diagnosed Date [...] sinus infections 05/25/2016 Overview: 05/23>Saw ENT in [place]; CT 2 yrs ago- moved [place] -02/19--zpak,pred 03/22, pred 04/21;doxy 05/23--not on nasacort daily-resume and + claritin Preoperative general physical examination 2016 Overview: 07/21-l-m risk--0.3/-1.7--rpt 3 yrs Type 2 diabetes mellitus wit hout complication, without long-term current use of insulin 04/10/2016 HTN, goal below 140/90 04/10/2016 Dyslipidemia 04/10/2016 Acquired hypothyroidism 04/10/2016 documented as of this encounter (statuses as of 03/14/2023) Resolved Problems Problem Noted Date Diagnosed Date Resolved Date Mammographic microcalcification 10/19/2016 08/13/2018 Overview: 12/21--scattered fibroglandular densities (25% - 50% fibroglandular), dystrophic ca+-rpt 1 yr Closed fracture of proximal end of right humerus with routine healing 10/19/2016 07/23/2018 Overview: 07/25/16 Encounter for screening mamm ogram for breast cancer 05/25/2016 07/23/2018 Overview: 05/2015 [facility] Screen for colon cancer 05/25/201607/05 Overview: csope-- 10/05/14- nl, gr 1 IH> At [facility]--rpt 10 yrs documented as of this encounter (statuses as of 03/14/2023) Immunizations Name Administration Dates Next Due COVID-19 [...] Care Team (Late st Contact Info) Description 03/14/2023 2:20 PM EST Office Visit Family Practice [facility] [address] [place] [address] Annabella Victoria DO [address] [place] [address] Arrived 03/19/2023 3:30 PM EST Office Visit Pharmacy, [facility] [address] [place] [address] Pharmacist2, [facility] [address] [facility] [place] [address] 03/21/2023 2:30 PM EST Office Visit Hematology/Oncology [facility] [address] [place] [address] Macey Cruz MD [address] [facility] [place] [address] 03/27/2023 11:45 AM EST Office Visit [facility]iology, [facility] [place] [address] Kimmy López, [address] [place] [address] 05/30/2023 11:00 AM EST Imaging Radiology [facility] [address] [facility] [place] [address] 06/04/2023 2:30 PM EST Nutrition Services Nutrition, [facility] [address] [facility] [place] [address] Monica Perry, LEON [address] [facility] [place] [address] 06/13/2023 10:30 AM EST Office Visit General Surgery, [facility] [address] [facility] [place] [address] Myke Pulliam MD [address] [facility] [place] [address] 06/20/2023 11:00 AM EST Immunization/Injecti on Hematology/Oncology Treatment, [place] [address] [place] [address] Nurse, [place] [address] [place] [address] 09/25/2023 9:30 AM EDT Cardiac Studies Cardiology, [facility] [address] [facility] [place] [address] [facility] [address] [facility] [place] [address] Pending Results Name Type Priority Associated Diagnoses Date /Time PHOSPHORUS Lab STAT Infiltrating ductal carcinoma of left breast (HCC) Osteoporosis with symptom management only 03/14/2023 1:47 PM EST VITAMIN B12 Lab Routine Infiltrating ductal carcinoma of left breast (HCC) CLL (chronic lymphocytic leukemia) (HCC) 03/14/2023 1:47 PM EST HEMOGLOBIN A1C Lab Routine Type 2 diabetes mellitus with hemoglobin A1c goal of less than 8.0% (HCC) 03/14/2023 1:47 PM EST Health Maintenance Due Date Last Done Comments Hepatitis B (1 of 3 - Risk 3-dose series) 2001 Albumin/Creatinine Ratio 05/10/2022 022, 09/27/2017, 07/04/2016 Diabetic Eye Exam 08/15/2022 08/15/2021, , 07/15/2019, Additional history exists COVID-19 Vaccine ( season) 2023 02/03/2022, 10/28/2021, 03/02/2021, Additional history exists Influenza Vaccine (FLU shot) (#1) 2023 02/16/2022, 02/04/2021, 02/13/2020, Additional history exists TSH 02/09/2023 02/09/2022, 10/06, 08/20/2019, Additional history exists HbA1c 08/14/2023 02/12/2023, 08/06, 04/24/2022, Additional history exists Depression Screening 09/07/2023 09/06/2022 Diabetic Foot Exam 09/07/2023 09/06/2022, 0 08/10/2021, 11/03/2020, Additional history exists B-12 11/15/2023 11/14/2022, 04/0 09/2021, 11/02/2020, Additional history exists GFR 12/14/2023 12/13/2022, 05/0 12/2022, 02/09/2022, Additional history exists DXA Scan 10/18/2024 10/18/2022, 07/06, 02/19/2012 DTaP,Tdap,and Td Vaccines (2 - Td or Tdap) 05/26/2025 05/26/2015 Pneumococcal Vaccine: 65+ Years Completed 05/19/2014, 09/17/2012, 05/26/2002 Zoster Vaccines Completed 03/25/2019, 11/05, 02/01/2007 VITAMIN D LEVEL ONCE IN A LIFETIME-USE SMARTSET# [id number] Completed 11/14/2022 GARDASIL-HPV IMMUNIZATION SERIES Aged Out No longer eligible based on patient's age to complete this topic MENINGOCOCCAL (MENACTRA/MENVEO) Aged Out No longer eligible based on patient's age to complete this topic documented as of this encounter Medical Devices Implanted Type Area Supply Chain Buyer Device Identifier Shelf Expiration Date Model / Serial / Lot Lens Intraoc 19.0 - [id number] - [id number] Implanted:Qty: 1 on 12/13/2021 by Mitchell Guzman MD at OR [facility] Left: Eye [employer] 06/06/2026 [id number] / [id number] / [id number] Lens Intraoc 19.0 - [id number] - [id number] Implanted:Qty: 1 on 12/27/2021 by Mitchell Guzman MD at OR [facility] Right: Eye [employer] 06/06/2026 [id number] / [id number] / [id number] documented as of this encounter Visit Diagnoses Diagnosis Infiltrating ductal carcinoma of left breast (HCC) Osteoporosis with symptom management only Osteoporosis, unspecified CLL (chronic lymphocytic leukemia) (HCC) Chronic lymphoid leukemia, without mention of having achieved remission Type 2 diabetes mellitus with hemoglobin A1c goal of less than 8.0% (HCC) documented in this encounter Advance Directives [...] the patient have Health Care Power of [place] Cleaner? No Code Status History Code Status Date Activated Date Inactivated Comments No Code 12/13/2021 6:43 AM 12/13/2021 1:23 PM This or tim reflects the patients wishes and were consensually agreed upon. Question Answer Comments Discussion of Advance Directives occurred with: Patient Does the patient have a Living Will? No Does the patient have Health Care Power of [place] Cleaner? No Care Teams Physician Office Rep Relationship Specialty Start Date End Date Annabella Victoria DO [address] [place] [address] PCP - General Family Medicine 07/19/17 documented as of this encounter
--- OUTSIDE RECORDS SUMMARY | 2023-04-09 09:44 | External Medical Summary ---
Author Name Unknown Address Unknown Organization K01:LABORATORY [facility] - [address] [place] [address] Laboratory Report Ordering Provider Test Date Status PERLA WILSON 03/15/2023 14:36:17 Final Normal: <30 mg/g creatinine< br/>High: 30-300 mg/g creatinine
Very High: >300 mg/g creatinine
Nephrotic: >2200 mg/g creatinine Observation Date Value Abnormality Reference (Units ) Status Albumin, Urine 03/15/2023 14:36:17 10.74 (mg/dL) Final Creatinine, Urine 03/15/2023 14:36:17 88 (mg/dL) Final Albumin/Creatinine [Mass Ratio] in Urine 03/15/2023 14:36:17 122 Above high normal <30 (mg/g Creat) Final Performing Location LABORATORY [facility] - [address] [place] [address]
--- OUTSIDE RECORDS SUMMARY | 2023-04-09 09:44 | External Medical Summary | Summary of Care ---
Author Name Unknown Organization [facility] Address [address] [place] [address] Phone [phone] Care Team Providers Care Merchandising Assistant Name Role Phone Annabella Victoria DO Primary Care Provider [phone] Reason for Referral * Evaluate & Treat - Unlimited Visits (Within 10 days (routine)) - Pending Review Specialty Diagnoses / Procedures Referred By Ally grimaldo Referred To Contact Orthopaedic Surgery / Orthopedics Diagnoses Chronic left shoulder pain Annabella Victoria DO [address] [place] [id number] Referral ID Status Reason Start Date Expiration Date Visits Requested Visits Authorized [id number] Pending Review Specialty Services Required 03/14/[phone] Question Answer Referral Priority Within 10 days (routine) Where should this appointment be scheduled? [facility] What body part is the patient being seen for? Shoulder What condition is the patient being seen for? Arthritis including related infection Reason for Visit * Reason Comments Re-Check 6 mo check, L arm pa in from placement of arm during radiation, UTI last month and took antibiotics, now having frequency, B12 injection Encounter Details Date Type Department Care Team (Late st Contact Info) Description 03/14/2023 2:20 PM EST Office Visit Family Practice [facility] [address] [place] [phone] Annabella Victoria DO [address] [place] [phone] Risk and functional assessment*; Acquired hypothyroidism; Type 2 diabetes mellitus without complication, without long-term current use of insulin (HCC); Urinary frequency; Chronic left shoulder pain Allergies Active Allergy Reactions Criticality Noted Date Comments Pollen Other (Please comment) 03/22/2016 Itchy, inflamed eyes Penicillins Rash 03/22/2016 Sulfa Antibiotics Nausea/vomiting 03/22/2016 documented as of this encounter (statuses as of 03/20/2023) Medications Medication Sig Dispensed Refills Start Date End Date Status Omeprazole Magnesium 20 MG Oral Tablet Delayed Release (PriLOSEC OTC) Take 1 Tablet by mouth as needed for Heartburn. 0 Active Trulicity 1.5 MG/0.5ML Subcutaneous Solution Pen-injector (Dulaglutide)Indica tions:Type 2 diabetes mellitus with hemoglobin A1c goal [...] Active Levothyroxine Sodium 50 MCG Oral Tablet (Levoxyl)Indication s:Acquired hypothyroidism (at least 30 min prior to breakfast or other meds) 90 Tablet 3 09/06/2022 Active Aspirin 81 MG Oral Tablet Chewable Take 1 Tablet by mouth in the morning. with food.. 90 Tablet 3 09/06/2022 Active Losartan Potassium 100 MG Oral Tablet (Cozaar)Indications :HTN, goal below 140/90 Take 1 Tablet by mouth in the morning. 90 Tablet 3 09/06/2022 Active amLODIPine Besylate 2.5 MG Oral Tablet (Norvasc)Indication s:HTN, goal below 140/90 Take 1 Tablet by mouth in the morning. 90 Tablet 3 09/06/2022 Active Metoprolol Succinate ER 50 MG Oral Tablet Extended Release 24 Hour (toPROL XL)Indications:HTN, goal below 140/90 Take 1 Tablet by mouth in the morning. 90 Tablet 3 09/06/2022 Active Pravastatin Sodium 40 MG Oral Tablet (Pravachol)Indicati ons:Type 2 diabetes mellitus without complication, without long-term current use of insulin ([facility]),Dyslipidemia Take 1 Tablet by mouth in the morning. 90 Tablet 3 09/06/2022 Active Multivitamin Adults 50+ Oral Tablet Take 1 Tablet by mouth daily. 0 Active metFORMIN HCl ER 500 MG Oral Tablet Extended Release 24 Hour (Glucophage XR)Indications:Type 2 diabetes mellitus with hemoglobin A1c goal of less than 8.0% ([facility]),Type 2 diabetes mellitus without complication, without long-term current use of insulin ([facility]) Take 2 Tablets by mouth 2 times a day with morning and evening meals. 360 Tablet 3 10/09/2022 Active Sodium Fluoride 1.1 % Dental Cream [place] onto teeth every night at bedtime. 0 Active Mirtazapine 15 MG Oral Tablet (Remeron)Indication s:Adjustment disorder with depressed mood Take 1 Tablet by mouth at bedtime. 30 Tablet 5 11/24/2022 Active Tamoxifen Citrate 20 MG Oral TabletIndications:I nfiltrating ductal carcinoma of left breast ([facility]),CLL (chronic lymphocytic leukemia) ([facility]) Take 1 Tablet by mouth in the morning. 90 Tablet 5 12/13/2022 Active OneTouch Dellola Moore 33GIndications:Type 2 diabetes mellitus with hemoglobin A1c goal of less than 8.0% ([facility]) Test Blood sugar two to three times per day. E11.9 300 Each 3 12/18/2022 Active Dulaglutide 1.5 MG/0.5ML Subcutaneous Solution Pen-injector (Trulicuc health) Inject 1.5 mg under the skin once a week. 2 mL 5 12/22/2022 Active Repaglinide 0.5 MG Oral Tablet (Prandin)Indication s:Type 2 diabetes mellitus with hemoglobin A1c goal of less than 8.0% ([facility]),Type 2 diabetes mellitus without complication, without long-term current use of insulin ([facility]) Take 1 Tablet by mouth daily before breakfast. 90 Tablet 3 02/12/2023 Active OneTouch Verio In Vitro Strip (Glucose Blood)Indications:T ype 2 diabetes mellitus with hemoglobin A1c goal of less than 8.0% ([facility]) Test Blood sugar two to three times per day. E11.9 300 Strip 3 03/13/2023 Active D3 High Potency 125 MCG (5000 UT) Oral Capsule TAKE 1 CAPSULE BY MOUTH AT NOON 0 03/02/2023 Active Viactiv Calcium Plus D 650-12.5-40 MG-MCG Oral Tablet Chewable (Calcium-Vitamin D-Vitamin K) Take by mouth. 0 Active ProAir HFA 108 (90 Base) MCG/ACT Inhalation Aerosol Solution Inhale 2 Puffs by mouth every 4 hours as needed for Wheezing. 18 g 1 11/22/2020 3 Discontinue d(Medicatio n List Clean Up) Letrozole 2.5 MG Oral Tablet (Femara)Indications :Infiltrating ductal carcinoma of left breast (HCC),CLL (chronic lymphocytic leukemia) (HCC) Take 1 Tablet by mouth in the morning. 90 Tablet 5 09/12/2022 3 Discontinue d(Medicatio n List Clean Up) metFORMIN HCl ER 500 MG Oral Tablet Extended Release 24 Hour (Glucophage XR)Indications:Type 2 diabetes mellitus without complication, without long-term current use of insulin ([facility]) Take 1 Tablet by mouth 2 times a day with morning and evening meals. Take in addition to medication in pill pack until completed. 14 Tablet 0 10/09/2022 3 Discontinue d(Medicatio n List Clean Up) Nystatin-Triamcinol one 893558-6.1 UNIT/GM-% External Cream (Mycolog) APPLY TOPICALLY 4 TIMES DAILY FOR RASH UNDER BREAST 0 10/30/2022 3 Discontinue d(Medicatio n List Clean Up) SSD 1 % External Cream APPLY 1.5MM THICKNESS TWICE DAILY FOR RADIATIONS DERMATITIS 0 11/13/2022 3 Discontinue d(Medicatio n List Clean Up) Hospital, Clinic, or Other Facility Administered Medication Ordered Dose Route Frequency Start Date End Date Status vitamin b-12 (Cyanocobalamin) inj 1,000 mcgIndications:B12 deficiency 1000 mcg IM [id number] 11/24/2022 10/26/2023 Active documented as of this encounter (statuses as of 03/20/2023) Active Problems Problem Noted Date Diagnosed Date [...] sinus infections 05/25/2016 Overview: 05/23>Saw ENT in [place]; [place] 2 yrs ago- moved [place] -02/19--zpak,pred 03/22, pred 04/21;doxy 05/23--not on nasacort daily-resume and + claritin Preoperative general physical examination 2016 Overview: 07/21-l-m risk--0.3/-1.7--rpt 3 yrs Type 2 diabetes mellitus wit hout complication, without long-term current use of insulin 04/10/2016 HTN, goal below 140/90 04/10/2016 Dyslipidemia 04/10/2016 Acquired hypothyroidism 04/10/2016 documented as of this encounter (statuses as of 03/20/2023) Resolved Problems Problem Noted Date Diagnosed Date [...] csope-- 10/05/14- nl, gr 1 IH> At [facility]--rpt 10 yrs documented as of this encounter (statuses as of 03/20/2023) Immunizations Name Administration Dates Next Due COVID-19 [...] Sign Reading Time Taken Comments Blood Pressure 114/68 03/14/2023 2:14 PM EST Pulse 84 03/14/2023 2:14 PM EST Temperature 37.6 C (99.7 F) 03/14/2023 2:14 PM ES T Respiratory Rate 16 03/14/2023 2:14 PM EST Oxygen Saturation - - Inhaled Oxygen Concentration - - Weight 60.3 kg (133 lb) 03/14/2023 2:14 PM EST Height - - Body Mass Index 26.86 03/02/2023 1:41 PM EDT documented in this encounter Patient Instructions * Patient Instructions* Radha Marshall RN - 03/14/2023 2:14 PM EST Patient Instructions - Fall Prevention (This education is for all patients over 65 regardless of symptoms) Remember to take your current medications as prescribed. In order to prevent falls, you are encouraged to: Exercise Utilize assistive/adaptive devices Avoid multifocal lenses when walking Avoid hazards in home Maintain a regular toileting schedule Any questions please contact our office. Preventing Falls in the Home (This education is for all patients over 65 regardless of symptoms) As you get older, falls are more likely. Thats because your reaction time slows. Your muscles and joints may also get stiffer, making them less flexible. Illness, medications, and vision changes can also affect your balance. A fall could leave you unable to live on your own. To make your home safer, follow these tips: Floors Put nonskid pads under area rugs Remove throw rugs Replace worn floor coverings Tack carpets firmly to each step on carpeted stairs. Put nonskid strips on the edges of uncarpeted stairs Keep floors and stairs free of clutter and cords Arrange furniture so there are clear pathways Clean up any spills right away Bathrooms Install grab bars in the tub or shower Apply nonskid strips or put a nonskid rubber mat in the tub or shower Sit on a bath chair to bathe Use bathmats with nonskid backing Lighting Keep a flashlight in each room Put a nightlight along the pathway between the bedroom and the bathroom Julian Patient Education Copyright 2008 - 2010 Julian except where otherwise noted Preventing Falls: Exercises to Improve Balance, Flexibility, Strength, and Staying Power (This education is for all patients over 65 regardless of symptoms) Certain types of exercises may help make you less likely to fall. Try the ones below. Or do other exercises that your healthcare provider suggests. Depending on your health, you may need to start slowly. Dont let that stop you. Even small amounts of exercise can help you. Be sure to talk to yourhealthcare provider before starting any exercise program. Improve Balance Many types of exercise can help improve balance. Piero chi and yoga are good examples. Heres another one to try. You can do it anytime and almost anywhere. Stand next to a counter or solid support. Push yourself up onto your tiptoes. Hold for 5 seconds. If you start to lose your balance, hold on to the counter. Rest and repeat 5 times. Work up to holding for 20 to 30 seconds, if you can. Increase Flexibility Being more flexible makes it easier for you to move around safely. Try exercises like the seated hamstring stretch. Sit in a chair and put one foot on a stool. Straighten your leg and reach with both hands down either side of your leg. Reach as far down your leg as you can. Hold for about 20 seconds. Go back to the starting position. Then repeat 5 times. Switch legs. Build Strength Resistance exercises help build strength. You can do them without equipment. Or you can use weights, elastic bands, or special machines. One such exercise is called the biceps curl. You can hold a 1 pound weight or even a can of soup. Do this exercise at least 3 times a week. Strive for everyday. Sit up straight in a chair. Keep your elbow close to your body and your wrist straight. Bend your arm, moving your hand up to your shoulder. Then slowly lower your arm. Repeat 5 times. Switch to the other arm. Build Your Staying Power Aerobic exercises make your heart and lungs stronger so you can keep moving longer. Walking and swimming are two of the best types of exercises you can do. Using a stationary bike is great, too. Find an aerobic exercise that you enjoy. Start slowly and build up. Even 5 minutes is helpful. Aimfor a goal of 30 minutes, at least 3 times a week. You dont have to do 30 minutes in one session. Break it up and walk a little throughout the day. More Helpful Tips Start easy. Slowly work up to doing more. Talk with your healthcare provider about the best exercises for you. Call senior centers or health clubs about exercise programs. If needed, have a family member watch you walk every so often to check your stability. Exercise with a friend. Choose an activity you both enjoy. Try exercises that you can do anytime, anywhere. Here are two examples. Have someone with you when you first try these: Practice walking by placing one foot right in front of the other. Stand up and sit down 10 times. Repeat this throughout the day. Qardio Patient Education Copyright 2008 Qardio except where otherwise noted. Preventing Falls: Moving Safely Using a Cane or Walker (This education is for all patients over 65 regardless of symptoms) Keep the cane away from your feet so you dont trip. A walking aid, such as a cane or walker, can help you stay more independent and avoid falls. Remember to keep your walking aid within easy reach when youre in a chair or in bed. And learn how to use it safely so you dont injure yourself. Using a Cane If you have a stronger side, hold the cane on that side. Get your balance. Move the cane and your weaker leg forward. Support your weight on both the cane and your weaker side. Step with your stronger leg. Start again from step 1. If youre using a folding walker, be sure you know how to lock it open. Check that its locked open before each use. Using a Walker Roll the walker (or lift it, if youre using one without wheels) forward about 12 inches. Step forward with your weaker leg first. Use the walker to help keep your balance. Bring your other foot forward to the center of the walker. Start again from step 1. Helpful Tips Check with your healthcare provider about the right walking aid to use. Ask about a walker with a seat attached. Check the tips of your cane or walker to make sure they have nonskid covers. Move slowly from room to room. Dont pardo. Sit down to get dressed. Use a juan pack or backpack to keep your hands free. Get help for jobs that mean climbing, even on a stepstool. [employer] Patient Education Copyright 2008 [employer]io except where otherwise noted. Urinary Incontinence Plan of Care Documentation: (This education is for all patients over 65 regardless of symptoms) Current medications reconciled. Patient encouraged to: Practice kegal exercises Provide education materials Use the restroom every 2 hours throughout the day Limit caffeine, alcohol, spicy foods and acidic foods Keep a bladder diary Limit fluid intake 3-4 hours before bed Lose weight Prevent constipation Take fluid pills at a time when you can get to the bathroom quickly Control sugar better if diabetic Limit fluid intake to 60 oz. per day Wear support stockings (TEDs)if you have edema Radha Marshall RN 03/14/2023 Kegel Exercises Kegel exercises dont require special clothing or equipment. Theyre easy to learn and simple to do. And if you do them right, no one can tell youre doing them, so they can be done almost anywhere. Your doctor, nurse, or physical therapist can answer any questions you have and help you get started. A Weak Pelvic Floor The pelvic floor muscles may weaken due to aging, and vaginal childbirth, injury, surgery, chronic cough, or lack of exercise. If the pelvic floor is weak, your bladder and other pelvic organs may sag out of place. The urethra may also open too easily and allow urine to leak out. Kegel exercises can help you strengthen your pelvic floor muscles so they can better support the pelvic organs and control urine flow. How Kegel Exercises Are Done Try each of the Kegel exercises described below. When youre doing them, try not to move your leg, buttock, or stomach muscles. While youre urinating, try to stop the flow of urine. Start and stop it as often as you can. Contract as if you were stopping your urine stream, but do it when youre not urinating. Tighten your rectum as if trying not to pass gas. Contract your anus, but dont move your buttocks. Helpful Hints Do your Kegels as often as you can. The more you do them, the faster youll feel the results. Pick an activity you do often as a reminder. For instance, do your Kegels every time you sit down. Tighten your pelvic floor before you sneeze, get up from a chair, cough, laugh, or lift. This protects your pelvic floor from injury and can help prevent urine leakage. Try to hold each Kegel for a slow count to five. You probably wont be able to hold them for thatlong at first, but keep practicing. It will get easier as your pelvic floor gets stronger. Eventually, special weights that you place in your vagina may be recommended to help make your Kegels even more effective. Julian Patient Education Copyright 2009 - 2010 Julian except where otherwise noted. Here are some helpful tips for your urinary incontinence: (This education is for all patients over 65 regardless of symptoms) Practice Kegel exercises Use the restroom every 2 hours throughout the day Limit caffeine, alcohol, spicy foods, and acidic foods Keep a bladder diary Limit fluid intake 3-4 hours before bed Lose weight Prevent constipation Take fluid pills at a time when can get to the bathroom quickly Control sugar better if diabetic Limit fluid intake to 60 oz. per day Any questions, please feel free to contact our office. documented in this encounter Progress Notes * Annabella Victoria, - 03/14/2023 2:38 PM EST Subjective: Sera Plata is a 82 year old female. Chief Complaint Patient presents with Re-Check 6 mo check, L arm pain from placement of arm during radiation, UTI last month and took antibiotics,now having frequency, B12 injection HPI: Pt presents for follow up today w/son. C/o L arm soreness - had to hold it up for radiation treatments, was sore during that time. No better since treatments stopped. Feels a "clicking" in the L side. No known injury. No numbness/tingling in the L arm. Hurts at night. BG have been 110s in the AM, in the 200s in the evening. Weight stable over the past month. Trying to get in more protein. Just saw sidewalk inspector. Treated last month for a UTI - has sx of urgency. PHM: Patient Active Problem List Diagnosis Code Type 2 diabetes mellitus without complication, without long-term current use of insulin ([facility]) E11.9 HTN, goal below 140/90 I10 Dyslipidemia E78.5 Acquired hypothyroidism E03.9 Seasonal allergic rhinitis due to pollen J30.1 Recurrent sinus infections J32.9 Preoperative general physical examination Z01.818 Mild aortic sclerosis [id number] Type 2 diabetes mellitus with hemoglobin A1c goal of less than 8.0% ([facility]) E11.9 Obesity, Class I, BMI 30.0-34.9 (see actual BMI) E66.9 B12 deficiency E53.8 CLL (chronic lymphocytic leukemia) ([facility]) C91.10 DM type 2 with diabetic peripheral neuropathy (HCC) E11.42 Age-related cataract of both eyes H25.9 Infiltrating ductal carcinoma of left breast (HCC) C50.912 Osteoporosis with symptom management only M81.0 Current Outpatient Medications Medication Sig Dispense Refill Omeprazole Magnesium 20 MG Oral Tablet Delayed Release (PriLOSEC OTC) Take 1 Tablet by mouth as needed for Heartburn. Trulicity 1.5 MG/0.5ML Subcutaneous Solution Pen-injector (Dulaglutide) Inject under the skin 1.5 mg once a week . Do not start before April 03, 2022. 6 mL 3 OneTouch Verio Reflect w/Device Kit Use as directed. [...] 3 Sodium Fluoride 1.1 % Dental Cream [place] onto teeth every night at bedtime. Mirtazapine 15 MG Oral Tablet (Remeron) Take 1 Tablet by mouth at bedtime. 30 Tablet 5 Tamoxifen Citrate 20 MG Oral Tablet Take 1 Tablet by mouth in the morning. 90 Tablet 5 OneTouch Delica Lancets 33G Test Blood sugar two to three times per day. E11.9 300 Each 3 Dulaglutide 1.5 MG/0.5ML Subcutaneous Solution Pen-injector (Trulicity) [...] Weeks Jacey Dunn CRNP 1,000 mcg at 01/05/23 0929 Past Medical History: Diagnosis Date Breast cancer (HCC) 2022 Left breast Closed fracture of proximal end of right humerus with routine healing 10/19/2016 07/25/16 Diabetes (HCC) Dyslipidemia Hypertension Hypothyroid Past Surgical History: Procedure Laterality Date ARM/ELBOW SUBQ TUMOR REMOVAL, 3 CM OR MORE Left 07/2004 lipoma arm BIOPSY OF UTERUS LINING 05/2014 BREAST BIOPSY Left 08/1998 infected cyst BX LYMPH NODE DEEP AXIL Left 07/28/2022 BIOPSY LYMPH NODE DEEP AXILLARY OPEN performed by Myke Pulliam MD at OR [facility] EXC BREAST LESION RADMARK Left 07/28/2022 EXCISION OF BREAST LESION RADIOLOGICAL MARKER performed by Myke Pulliam MD at [facility] IDENTIFY SENTINEL NODE, RADIOACTIVE TRACER Left 07/28/2022 INJECTION PROCEDURE FOR IDENTIFICATION SENTINEL NODE performed by Myke Pulliam MD at [facility] INFORMATION 07/13/2006 throat cyst removed LAPAROSCOPY; CHOLECYSTECTOMY 1995 MASTECTOMY, PARTIAL Left 07/28/2022 MASTECTOMY PARTIAL performed by Myke Pulliam MD at [facility] RADIATION THERAPY Left 2022 REMOVAL OF TONSILS, UNDER AGE 12 REMOVE CATARACT, INSERT LENS PROSTH Left 12/13/2021 LEFT EXTRACAPSULAR CATARACT REMOVAL WITH INTRAOCULAR LENS performed by Mitchell Guzman MD at [facility] REMOVE CATARACT, INSERT LENS PROSTH Right 12/27/2021 RIGHT EXTRACAPSULAR CATARACT REMOVAL WITH INTRAOCULAR LENS performed by Mitchell Guzman MD at [facility] TREAT ECTOPIC , TUBE/OVARY Right 1968 US GUIDED BREAST BIOPSY LEFT Left 06/22/2022 Invasive carcinoma, no special type, grade 2 Review of patient's allergies indicates: Allergen Reactions Hay Fever [Pollen] Other (Please comment) Itchy, inflamed eyes Penicillins Rash Sulfa Antibiotics Nausea/vomiting Objective: BP 114/68 (BP Site: Left Arm, BP Position: Sitting, BP Cuff Size: Regular) | Pulse 84 | Temp 37.6 C (99.7 F) (Tympanic) | Resp 16 | Wt 60.3 kg (133 lb) | BMI 26.86 kg/m | BSA 1.58 m Review of Systems: As per HPI, all other ROS neg. Physical Exam: General: alert, healthy and no distress Heart: regular rate & rhythm, no murmurs and no gallops Lungs: chest symmetric with normal AP diameter, no chest deformities noted, lungs clear to auscultation Extremities: no joint deformities, effusion, or inflammation, no edema; + dec ROm L shoulder, strength intact Risk and functional assessment (Primary) Acquired hypothyroidism - TSH WITH FREE T4 IF INDICATED; Future; Expected date: 03/14/2023 Type 2 diabetes mellitus without complication, without long-term current use of insulin (HCC) - ALBUMIN / CREATININE RATIO, URINE; Future; Expected date: 03/14/2023 Urinary frequency - CULTURE, URINE, QUANTITATIVE; Future; Expected date: 03/14/2023 Chronic left shoulder pain - XR SHOULDER, 2 OR MORE VIEWS - ORTHOPAEDICS REFERRAL OP Follow up: in 6 month(s). Annabella Victoria DO * Radha Marshall RN - 03/14/2023 2:14 PM EST Urinary Incontinence Plan of Care Documentation: (This education is for all patients over 65 regardless of symptoms) Current medications reconciled. Patient encouraged to: Practice kegal exercises Provide education materials Use the restroom every 2 hours throughout the day Limit caffeine, alcohol, spicy foods and acidic foods Keep a bladder diary Limit fluid intake 3-4 hours before bed Lose weight Prevent constipation Take fluid pills at a time when you can get to the bathroom quickly Control sugar better if diabetic Limit fluid intake to 60 oz. per day Wear support stockings (TEDs)if you have edema Radha Marshall RN 03/14/2023 documented in this encounter Nursing Notes * Radha Marshall RN - 03/14/2023 3:13 PM EST Pre-Administration Time Out Procedure Performed: Yes Patient Identified (Ask Name/Date of ): Yes Does the patient have a fever greater than 101 degrees today? No Patient allergic to latex? No Has the patient ever fainted after receiving an injection? No VFC Stock: No Injection(s) verified: Yes, Injection Name: B12 Verified Side and Site: Yes Verified Shot(s) with Parent(s)/Patient: Yes documented in this encounter Plan of Treatment Upcoming Encounters Date Type Department Care Team (Late st Contact Info) Description 03/21/2023 2:30 PM EST Office Visit Hematology/Oncology [facility] [address] [place] [address] Macey Cruz MD [facility] [place] [address] 03/27/2023 11:45 AM EST Office Visit Cardiology, [facility] [address] [facility] [place] [address] Kimmy López, [address] [id number] 05/14/2023 3:30 PM EST Office Visit Pharmacy, [facility] [address] [address] Pharmacist2, [facility] [address] [address] 05/17/2023 4:00 PM EST Telemedicine Orthopaedics [facility] [address] [facility] [place] [address] Dano Dueñas MD [address] [place] [phone] 05/30/2023 11:00 AM EST Imaging Radiology [facility] [place] [address] 06/04/2023 2:30 PM EST Nutrition Services Nutrition, [facility] [address] [facility] [place] [address] Monica Perry, LEON [address] [facility] [place] [address] 06/13/2023 10:30 AM EST Office Visit General Surgery, [facility] [address] [facility] [place] [address] Myke Pulliam MD 132 [facility] [place] [address] 06/20/2023 11:00 AM EST Immunization/Injection Hematology/Oncology Treatment, [place] [address] [place] [address] Nurse, Med [address] [place] [address] 08/29/2023 5:00 PM EDT Office Visit Family Practice [facility] [address] [facility] [place] [address] Annabella Victoria DO 132 [facility] [place] [address] 09/25/2023 9:30 AM EDT Cardiac Studies Cardiology, [facility] [address] [facility] [place] [address] [facility] [address] [facility] [place] [address] Scheduled Referrals Name Type Priority Associated Diagnoses Order Schedule ORTHOPAEDICS REFERRAL OP Referral Within 10 days (routine) Chronic left shoulder pain Ordered: 03/14/2023 Health Maintenance Due Date Last Done Comments [...] D LEVEL ONCE IN A LIFETIME-USE SMARTSET# [id number] Completed 11/14/2022 GARDASIL-HPV IMMUNIZATION SERIES Aged Out No longer eligible based on patient's age to complete this topic MENINGOCOCCAL (MENACTRA/MENVEO) Aged Out No longer eligible based on patient's age to complete this topic documented as of this encounter Medical Devices Implanted Type Area Supervisor Lump Room Device Identifier Shelf Expiration Date Model / Serial / Lot Lens Intraoc 19.0 - [id number] - [id number] Implanted:Qty: 1 on 12/13/2021 by Mitchell Guzman MD at OR [facility] Left: Eye [employer] 06/06/2026 [id number] / [id number] / [id number] Lens Intraoc 19.0 - [id number] - [id number] Implanted:Qty: 1 on 12/27/2021 by Mitchell Guzman MD at OR [facility] Right: Eye [employer]OMB 06/06/2026 [id number] / [id number] / [id number] documented as of this encounter Procedures Procedure Name Priority Date/Time Associated Diagnosis Comments XR SHOULDER, 2 OR MORE VIEWS Routine 03/14/2023 3:30 PM EST Chronic left shoulder pain documented in this encounter Results * (ABNORMAL) ALBUMIN / CREATININE RATIO, URINE (03/15/2023 2:36 PM EST) Albumin, Random Urine 10.74 mg/dL 03/16/2023 12:32 AM EST [facility] Creatinine, Random Urine 88 mg/dL 03/16/2023 12:32 AM EST [facility] Albumin / Creatinine Ratio, Urine 122(H) <30 mg/g Creat 03/16/2023 12:32 AM EST [facility] Urine Urine specimen obtained by clean catch procedure / Unknown Non-blood Collection / Unknown 03/15/2023 2:36 PM EST 03/15/2023 2:36 PM EST Narrative [facility] - 03/16/2023 12:32 AM EST Normal: <30 mg/g creatinine High: 30-300 mg/g creatinine Very High: >300 mg/g creatinine Nephrotic: >2200 mg/g creatinine Annabella Victoria DO LAB URINE ORDERABLE S [facility] [address] [place] [address] * (ABNORMAL) CULTURE, URINE, QUANTITATIVE (03/15/2023 2:36 PM EST) Culture Growth >100,000 colonies/mL Klebsiella aerogenes(A) MICROBROTH DILUTIONS 03/18/2023 2:37 PM EST [facility] Comment:This bacterial speci es is known to produce a chromosomal AmpC inducible beta lactamase. Penicillin or cephalosporin use, with the exception of cefepime, may result in resistance. Urine Urine specimen obtained by clean catch procedure / Unknown Non-blood Collection / Unknown 03/15/2023 2:36 PM EST 03/15/2023 2:36 PM EST Narrative [facility] - 03/18/2023 2:37 PM EST <10,000 colonies/ml mixed normal kenneth Organism Antibiotic Method Susceptibility Klebsiella aerogenes Cefepime MICROBROTH DILUTIONS <=1: Susceptible Klebsiella aerogenes Cefoxitin MICROBROTH DILUTIONS Resistant Klebsiella aerogenes Ceftriaxone MICROBROTH DILUTIONS <=1: Susceptible Klebsiella aerogenes Ciprofloxacin MICROBROTH DILUTIONS <=0.25: Susceptible Comment:Due to fernandez us side effects, the FDA has advised against using Ciprofloxacin to treat uncomplicated UTIs and respiratory tract infections unless there are no alternative treatment options. Klebsiella aerogenes Gentamicin MICROBROTH DILUTIONS <=1: Susceptible Klebsiella aerogenes Levofloxacin MICROBROTH DILUTIONS 1: Intermediate Comment:Due to fernandez us side effects, the FDA has advised against using Levofloxacin to treat uncomplicated UTIs and respiratory tract infections unless there are no alternative treatment options. Klebsiella aerogenes Nitrofurantoin MICROBROTH DILUTIONS 256: Resistant Klebsiella aerogenes Piperacillin Tazobactam SAMANTHA ROBROTH DILUTIONS <=4: Susceptible Klebsiella aerogenes Trimeth/Sulfamethoxazole [place] CROBROTH DILUTIONS <=20: Susceptible Annabella Victoria DO LAB MICRO - GENERAL ORDERABLES Performing Organization Address [facility] [address]/[facility] Co de Phone Number [facility]ATORY [facility] [address] [place] [address] * XR SHOULDER, 2 OR MORE VIEWS (03/14/2023 3:30 PM EST) Anatomical Region Laterality Modality Upper Extremity, Shoulder Comput ed Radiography 03/14/2023 3:23 PM EST Impressions 03/16/2023 11:55 PM EST IMPRESSION: No acute findings. THIS DOCUMENT HAS BEEN ELECTRONICALLY SIGNED BY JAY ZARCO MD Narrative 03/16/2023 11:55 PM EST PROCEDURE INFORMATION: Exam: XR Left Shoulder Exam date and time: 03/14/2023 3:23 PM Age: 82 years old Clinical indication: Other chronic pain; Pain in left shoulder; Additional info: L shoulder pain TECHNIQUE: Imaging protocol: Radiologic exam of the left shoulder. Views: 2 or more views. COMPARISON: DX XR CHEST 2 VIEWS 07/19/2020 3:49 PM FINDINGS: Tubes, catheters and devices: Interval placement of left pacemaker device. Bones/joints: Normal. Vasculature: Calcification of the thoracic aorta and/or great vessels consistent with atherosclerotic vessel disease. Soft tissues: Normal. Procedure Note Jay Zarco MD - 03/17/2023 PROCEDURE INFORMATION: Exam: XR Left Shoulder Exam date and time: 03/14/2023 3:23 PM Age: 82 years old Clinical indication: Other chronic pain; Pain in left shoulder; Additional info: L shoulder pain TECHNIQUE: Imaging protocol: Radiologic exam of the left shoulder. Views: 2 or more views. COMPARISON: DX XR CHEST 2 VIEWS 07/19/2020 3:49 PM FINDINGS: Tubes, catheters and devices: Interval placement of left pacemaker device. Bones/joints: Normal. Vasculature: Calcification of the thoracic aorta and/or great vessels consistent with atherosclerotic vessel disease. Soft tissues: Normal. IMPRESSION IMPRESSION: No acute findings. THIS DOCUMENT HAS BEEN ELECTRONICALLY SIGNED BY JAY ZARCO MD Annabella Tavarez [facility] DO RADIOLOGY ([facility]) * TSH WITH FREE T4 IF INDICATED (03/14/2023 1:47 PM EST) TSH 3.79 0.27 - 4.20 uIU/mL 03/15/2023 1:39 AM EST [facility] Blood Venous blood specimen / Unknown Venipuncture / Unknown 03/14/2023 1:47 PM EST 03/14/2023 1:47 PM EST Annabella Victoria DO LAB BLOOD ORDERABLE S [facility] [address] [facility] [place] [address] documented in this encounter Visit Diagnoses Diagnosis Risk and functional assessment- Primary Screening for unspecified condition Acquired hypothyroidism Unspecified hypothyroidism Type 2 diabetes mellitus without complication, without long-term current use of insulin (HCC) Urinary frequency Chronic left shoulder pain Pain in joint, shoulder region documented in this encounter Administered Medications Active Administered Medications - up to 3 most recent administrations Medication Order MAR Action Action Date Dose Rate Site vitamin b-12 (Cyanocobalamin) inj 1,000 mcg 1,000 mcg, Intramuscular, [id number], First dose on Sun11/24/22 at 1145, Last dose on Sun09/28/23 at 1145, For 12 doses Given 03/14/2023 3:13 PM EST 1,000 mcg Deltoid Right Upper Given 01/05/2023 9:29 AM EDT 1,000 mcg De ltoid Left Upper Given 11/24/2022 11:03 AM EDT 1,000 mcg D eltoid Right Upper documented in this encounter Advance Directives Latest Code Status on File Code Status Date Activated Date Inactivated Comments No Code 12/27/2021 6:34 AM 12/27/2021 1:09 PM This order reflects the patients wishes and were consensually agreed upon. Question Answer Comments Discussion of Advance Directives occurred with: Patient Does the patient have a Living Will? No Does the patient have Health Care Power of Switchboard Wire Worker Helper? No Code Status History Code Status Date Activated Date Inactivated Comments No Code 12/13/2021 6:43 AM 12/13/2021 1:23 PM This or tim reflects the patients wishes and were consensually agreed upon. Question Answer Comments Discussion of Advance Directives occurred with: Patient Does the patient have a Living Will? No Does the patient have Health Care Power of Switchboard Wire Worker Helper? No Care Teams Merchandising Assistant Relationship Specialty Start Date End Date Annabella Victoria DO [address] [place] [address] PCP - General Family Medicine 07/19/17 documented as of this encounter
--- OUTSIDE RECORDS SUMMARY | 2023-04-09 09:45 | External Medical Summary | Summary of Care ---
Author Name Unknown Organization [facility] Address [address] [place] [address] Phone [phone] Care Team Providers Care Structural Biologist Name Role Phone Annabella Victoria DO Primary Care Provider [phone] Reason for Visit * Reason Comments Outpatient Testing Encounter Details Date Type Department Care Team Description 02/13/2023 Laboratory Laboratory [facility] [address] [place] [address] [facility] [address] [place] [address] Suspected urinary tract infection Allergies Active Allergy Reactions Severity Noted Date Comments Pollen Other (Please comment) 03/22/2016 Itchy, inflamed eyes Penicillins Rash 03/22/2016 Sulfa Antibiotics Nausea/vomiting 03/22/2016 documented as of this encounter (statuses as of 02/13/2023) Medications Medication Sig Dispensed Refills Start Date [...] goal of less than 8.0% ([facility]) Inject under the skin 1.5 mg once a week . Do not start before April 03, 2022. 6 mL 3 04/03/2022 Active OneTouch Verio Reflect w/Device KitIndications:Type 2 diabetes mellitus with hemoglobin A1c goal of less than 8.0% ([facility]) Use as directed. Test Blood sugar [...] long-term current use of insulin ([facility]),Dyslipidemia Take 1 Tablet by mouth in the morning. 90 Tablet 3 09/06/2022 Active Letrozole 2.5 MG Oral Tablet (Femara)Indications:I nfiltrating ductal carcinoma of left breast (HCC),CLL (chronic lymphocytic leukemia) ([facility]) Take 1 Tablet by mouth in the morning. 90 Tablet 5 09/12/2022 Active Multivitamin Adults 50+ Oral Tablet Take 1 Tablet by mouth daily. 0 Active metFORMIN HCl ER 500 MG Oral Tablet Extended Release 24 Hour (Glucophage XR)Indications:Type 2 diabetes mellitus without complication, without long-term current use of insulin ([facility]) Take 1 Tablet by mouth 2 times a day with morning and evening meals. Take in addition to medication in pill pack until completed. 14 Tablet 0 10/09/2022 Active metFORMIN HCl ER 500 MG Oral Tablet Extended Release 24 Hour (Glucophage XR)Indications:Type 2 diabetes mellitus with hemoglobin A1c goal of less than 8.0% ([facility]),Type 2 diabetes mellitus without complication, without long-term current use of insulin ([facility]) Take 2 Tablets by mouth 2 times a day with morning and evening meals. 360 Tablet 3 10/09/2022 Active Sodium Fluoride 1.1 % Dental Cream [place] onto teeth every night at bedtime. 0 Active Nystatin-Triamcinolon e 090288-5.1 UNIT/GM-% External Cream (Mycolog) APPLY TOPICALLY 4 [...] ductal carcinoma of left breast ([facility]),CLL (chronic lymphocytic leukemia) ([facility]) Take 1 Tablet by mouth in the morning. 90 Tablet 5 12/13/2022 Active OneTouch Delica Lancets 33GIndications:Type 2 diabetes mellitus with hemoglobin A1c goal of less than 8.0% ([facility]) Test Blood sugar two to three times per day. E11.9 300 Each 3 12/18/2022 Active OneTouch Verio In Vitro Strip (Glucose Blood)Indications:Typ e 2 diabetes mellitus with hemoglobin A1c goal of less than 8.0% ([facility]) Test Blood sugar two to three times per day. E11.9 3 Strip 3 12/18/2022 Active Dulaglutide 1.5 MG/0.5ML Subcutaneous Solution Pen-injector (Trulicity) Inject 1.5 mg under the skin once a week. 2 mL 5 12/22/2022 Active Repaglinide 0.5 MG Oral Tablet (Prandin)Indications: Type 2 diabetes mellitus with hemoglobin A1c goal of less than 8.0% ([facility]),Type 2 diabetes mellitus without complication, without long-term current use of insulin ([facility]) Take 1 Tablet by mouth daily before breakfast. 90 Tablet 3 02/12/2023 Active Hospital, Clinic, or Other Facility Administered Medication Ordered Dose Route Frequency Start Date End Date Status vitamin b-12 (Cyanocobalamin) inj 1,000 mcgIndications:B12 deficiency 1000 mcg IM [id number] 11/24/2022 10/26/2023 Active documented as of this encounter (statuses as of 02/13/2023) Active Problems Problem Noted Date Osteoporosis with symptom management onl y 10/23/2022 Infiltrating ductal carcinoma of left br east 07/28/2022 Age-related cataract of both eyes 2021 DM type 2 with diabetic peripheral neuro dony 08/10/2021 CLL (chronic lymphocytic leukemia) 11/04 B12 deficiency 10/02/2017 Mild aortic sclerosis 10/19/2016 Overview: Echo 02/19/15 Type 2 diabetes mellitus with hemoglobin A1c goal of less than 8.0% 10/19/2016 Obesity, Class I, BMI 30.0-34.9 (see act ual BMI) 10/19/2016 Seasonal allergic rhinitis due to pollen 05/25/2016 Overview: Had allergy immunotherapy 2 yrs ago-2013 Recurrent sinus infections 05/25/2016 Overview: 05/23>Saw ENT in [place]; CT 2 yrs ago- moved [place] -02/19--zpak,pred 03/22, pred 04/21;doxy 05/23--not on nasacort daily-resume and + claritin Preoperative general physical examinatio n 05/25/2016 Overview: 07/21-l-m risk--0.3/-1.7--rpt 3 yrs Type 2 diabetes mellitus wit hout complication, without long-term current use of insulin 04/10/2016 HTN, goal below 140/90 04/10/2016 Dyslipidemia 04/10/2016 Acquired hypothyroidism 04/10/2016 documented as of this encounter (statuses as of 02/13/2023) Resolved Problems Problem Noted Date Resolved Date Mammographic microcalcification 10/19/2016 08/13/2018 Overview: 12/21--scattered fibroglandular densities (25% - 50% fibroglandular), dystrophic ca+-rpt 1 yr Closed fracture of proximal end of right humerus with routine healing 10/19/2016 07/23/2018 Overview: 07/25/16 Encounter for screening mammogram for breast can cer 05/25/2016 07/23/2018 Overview: 05/2015 [facility] Screen for colon cancer 05/25/2016 07/24/19 19 Overview: csope-- 10/05/14- nl, gr 1 IH> At [facility]--rpt 10 yrs documented as of this encounter (statuses as of 02/13/2023) Immunizations Name Administration Dates Next Due COVID-19 [...] = 0.6 oz pur e alcohol) rarely Food Insecurity Answer Date Recorded Within the past 12 months, y ou worried that your food would run out before you got money to buy more. Never true 12/03/2019 Within the past 12 months, t he food you bought just didn't last and you didn't have money to get more. Never true 12/03/2019 Sex Assigned at Date Recorded Female 08/13/2018 10:03 AM EDT Job Start Date Occupation Industry Not on file Not on file Not on file documented as of this encounter Plan of Treatment Upcoming Encounters Date Type Specialty Care Team Description 02/15/2023 Office Visit General Surgery Myke Pulliam MD [address] [place] [address] 03/02/2023 Nutrition Services Nutrition Services Monica Perry, LEON [address] [place] [address] 03/14/2023 Laboratory Laboratory [facility] [address] [place] [address] 03/14/2023 Office Visit Family Medicine Annabella Victoria DO [address] [place] [address] 03/21/2023 Office Visit Hematology Oncology Macey Cruz MD [address] [place] [address] 03/21/2023 Office Visit Pharmacy Pharmacist2, [facility] [address] [place] [address] [address] 03/27/2023 Office Visit Cardiology Kimmy López DO [address] [facility] [place] [address] 06/20/2023 Immunization/Injection Hematology Oncolog y Nurse, Med [address] [place] [address] 09/25/2023 Cardiac Studies Cardiology Dania Hussein [facility] [address] [place] [address] Pending Results Name Type Priority Associated Diagnoses Date /Time CULTURE, URINE, QUANTITATIVE Lab Routine Suspected urinary tract infection 02/13/2023 11:31 AM EDT URINALYSIS WITH MICROSCOPIC EXAM Lab Routine Suspected urinary tract infection 02/13/2023 11:31 AM EDT Health Maintenance Due Date Last Done Comments Albumin/Creatinine Ratio 05/10/2022 022, 09/27/2017, 07/04/2016 DIABETES-EYE EXAM 08/15/2022 08/15/2021, , 07/15/2019, Additional history exists [...] D LEVEL ONCE IN A LIFETIME-USE SMARTSET# [id number] Completed 11/14/2022 GARDASIL-HPV IMMUNIZATION SERIES Aged Out No longer eligible based on patient's age to complete this topic Hepatitis B Aged Out No longer eligi ble based on patient's age to complete this topic MENINGOCOCCAL (MENACTRA/MENVEO) Aged Out No longer eligible based on patient's age to complete this topic documented as of this encounter Medical Devices Implanted Type Area Obiee Obia Solution Architect Device Identifier Shelf Expiration Date Model / Serial / Lot Lens Intraoc 19.0 - [id number] - [id number] Implanted:Qty: 1 on 12/13/2021 by Mitchell Guzman MD at [facility] Left: Eye 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 Question Answer Comments Discussion of Advance Directives occurred with: Patient Does the patient have a Living Will? No Does the patient have Health Care Power of Integration Manager? No Code Status History Code Status Date Activated Date Inactivated Comments No Code 12/13/2021 6:43 AM 12/13/2021 1:23 PM This or tim reflects the patients wishes and were consensually agreed upon. Question Answer Comments Discussion of Advance Directives occurred with: Patient Does the patient have a Living Will? No Does the patient have Health Care Power of Integration Manager? No Care Teams Structural Biologist Relationship Specialty Start Date End Date Annabella Victoria, DO [address] [place] [address] PCP - General Family Medicine 07/19/17 documented as of this encounter
--- OUTSIDE RECORDS SUMMARY | 2023-04-09 09:45 | External Medical Summary ---
Author Name Unknown Address Unknown Organization K01:LABORATORY [facility] - [address] [place] [address] Laboratory Report Ordering Provider Test Date Status ANGIE VICTOR 03/14/2023 13:47:36 Final Observation Date Value Abnormality Reference (Units ) Status HbA1C 03/14/2023 13:47:36 8.3 Above high normal 4. 0-5.6 (%) Final The use of HbA1c to monitor glycemic status is based on normal hemoglobin and HbA composition. This test should not be used in patients with abnormal hemoglobin that affects the half life of the red blood cell or the in vivo glycation rates. Glucose, estimated average 03/14/2023 13:47:36 192 Above high normal <126 (mg/dL) Cornell edmondson Performing Location LABORATORY [facility] - [address] [place] [address]
--- OUTSIDE RECORDS SUMMARY | 2023-04-09 09:45 | External Medical Summary | Summary of Care ---
Author Name Unknown Organization [facility] Address [address] [place] [address] Phone [phone] Care Team Providers Care Manager Application Name Role Phone Annabella Victoria DO Primary Care Provider [phone] Reason for Visit * Reason Onset Date Comments Health Maintenance 02/12/2023 Encounter Details Date Type Department Care Team Description 02/12/2023 Telephone Family Practice [facility] [address] [place] [address] Annabella Victoria DO [address] [facility] [place] [address] Health Maintenance Allergies Active Allergy Reactions Severity Noted Date Comments Pollen Other (Please comment) 03/22/2016 Itchy, inflamed eyes Penicillins Rash 03/22/2016 Sulfa Antibiotics Nausea/vomiting 03/22/2016 documented as of this encounter (statuses as of 02/12/2023) Medications Medication Sig Dispensed Refills Start Date [...] goal of less than 8.0% ([facility]) Inject under the skin 1.5 mg once a week . Do not start before April 03, 2022. 6 mL 3 04/03/2022 Active OneTouch Verio Reflect w/Device KitIndications:Type 2 diabetes mellitus with hemoglobin A1c goal of less than 8.0% ([facility]) Use as directed. Test Blood sugar one [...] long-term current use of insulin ([facility]),Dyslipidemia Take 1 Tablet by mouth in the morning. 90 Tablet 3 09/06/2022 Active Letrozole 2.5 MG Oral Tablet (Femara)Indications:I nfiltrating ductal carcinoma of left breast ([facility]),CLL (chronic lymphocytic leukemia) ([facility]) Take 1 Tablet by mouth in the morning. 90 Tablet 5 09/12/2022 Active Multivitamin Adults 50+ Oral Tablet Take 1 Tablet by mouth daily. 0 Active metFORMIN HCl ER 500 MG Oral Tablet Extended Release 24 Hour (Glucophage XR)Indications:Type 2 diabetes mellitus without complication, without long-term current use of insulin ([facility]) Take 1 Tablet by mouth 2 times a day with morning and evening meals. Take in addition to medication in pill pack until completed. 14 Tablet 0 10/09/2022 Active metFORMIN HCl ER 500 MG Oral Tablet Extended Release 24 Hour (Glucophage XR)Indications:Type 2 diabetes mellitus with hemoglobin A1c goal of less than 8.0% ([facility]),Type 2 diabetes mellitus without complication, without long-term current use of insulin ([facility]) Take 2 Tablets by mouth 2 times a day with morning and evening meals. 360 Tablet 3 10/09/2022 Active Sodium Fluoride 1.1 % Dental Cream Orange onto teeth every night at bedtime. 0 Active Nystatin-Triamcinolon e 964035-2.1 UNIT/GM-% External Cream (Mycolog) APPLY TOPICALLY 4 [...] ductal carcinoma of left breast ([facility]),CLL (chronic lymphocytic leukemia) ([facility]) Take 1 Tablet by mouth in the morning. 90 Tablet 5 12/13/2022 Active OneTouch Delica Lancets 33GIndications:Type 2 diabetes mellitus with hemoglobin A1c goal of less than 8.0% ([facility]) Test Blood sugar two to three times per day. E11.9 300 Each 3 12/18/2022 Active OneTouch Verio In Vitro Strip (Glucose Blood)Indications:Typ e 2 diabetes mellitus with hemoglobin A1c goal of less than 8.0% ([facility]) Test Blood sugar two to three times per day. E11.9 3 Strip 3 12/18/2022 Active Dulaglutide 1.5 MG/0.5ML Subcutaneous Solution Pen-injector (Qinging Weekly Flower Delivery) Inject 1.5 mg under the skin once a week. 2 mL 5 12/22/2022 Active Repaglinide 0.5 MG Oral Tablet (Prandin)Indications: Type 2 diabetes mellitus with hemoglobin A1c goal of less than 8.0% ([facility]),Type 2 diabetes mellitus without complication, without long-term current use of insulin ([facility]) Take 1 Tablet by mouth daily before breakfast. 90 Tablet 3 02/12/2023 Active Hospital, Clinic, or Other Facility Administered Medication Ordered Dose Route Frequency Start Date End Date Status vitamin b-12 (Cyanocobalamin) inj 1,000 mcgIndications:B12 deficiency 1000 mcg IM [id number] 11/24/2022 10/26/2023 Active documented as of this encounter (statuses as of 02/12/2023) Active Problems Problem Noted Date Osteoporosis with [...] 05/25/2016 Overview: Had allergy immunotherapy 2 yrs ago-2014 Recurrent sinus infections 05/25/2016 Overview: 05/23>Saw ENT in [place]; CT 2 yrs ago- moved [place] -02/19--zpak,pred 03/22, pred 04/21;doxy 05/23--not on nasacort daily-resume and + claritin Preoperative general physical examinatio n 05/25/2016 Overview: 07/21-l-m risk--0.3/-1.7--rpt 3 yrs Type 2 diabetes mellitus wit hout complication, without long-term current use of insulin 04/10/2016 HTN, goal below 140/90 04/10/2016 Dyslipidemia 04/10/2016 Acquired hypothyroidism 04/10/2016 documented as of this encounter (statuses as of 02/12/2023) Resolved Problems Problem Noted Date Resolved Date Mammographic microcalcification 10/19/2016 08/13/2018 Overview: 12/21--scattered fibroglandular densities (25% - 50% fibroglandular), dystrophic ca+-rpt 1 yr Closed fracture of proximal end of right humerus with routine healing 10/19/2016 07/23/2018 Overview: 07/25/16 Encounter for screening mammogram for breast can cer 05/25/2016 07/23/2018 Overview: 05/2015 [place] Screen for colon cancer 05/25/2016 07/24/19 19 Overview: csope-- 10/05/14- nl, gr 1 IH> At [place]--rpt 10 yrs documented as of this encounter (statuses as of 02/12/2023) Immunizations Name Administration Dates Next Due COVID-19 [...] encounter Miscellaneous Notes * Telephone Encounter - Jayshree Howard LPN - 02/12/2023 1:40 PM EDT Care Gaps Comprehensive Care Outreach Last Office/Telemedicine Visit: 01/05/2023 (in office), Visit date not found (telemedicine) Next Office Visit: 03/14/2023 Hemoglobin AIC Results: Lab Results Component Value Date/Time HEMOGLOBIN A1C - [facility] 8.2 (H) 12/08/2021 10:34 AM HEMOGLOBIN A1C - [facility] 9.8 (H) 08/09/2021 08:28 AM HEMOGLOBIN A1C - [facility] 8.5 (H) 02/04/2021 10:23 AM HEMOGLOBIN A1C - [facility] 7.1 (H) 11/25/2019 09:24 AM HEMOGLOBIN A1C - [facility] 7.2 (H) 09/01/2019 09:35 AM HEMOGLOBIN A1C - [facility] 7.8 (H) 05/12/2019 10:45 AM HEMOGLOBIN A1C POCT - [facility] 9.2 (H) 02/12/2023 10:15 AM HEMOGLOBIN A1C POCT - [facility] 7.3 (H) 08/28/2022 10:43 AM HEMOGLOBIN A1C POCT - [facility] 7.1 (H) 04/24/2022 02:12 PM Reviewed Health Maintenance below: Health Maintenance Topic Date Due Albumin/Creatinine Ratio 05/10/2022 DIABETES-EYE EXAM 08/15/2022 Influenza Vaccine (FLU shot) (1) 01/05/2023 COVID-19 Vaccine ( season) 2023 TSH 02/09/2023 Urine Eye labs Care Gap Outreach Action Taken: Left message documented in this encounter Plan of Treatment Upcoming Encounters Date Type Specialty Care Team Description 02/15/2023 Office Visit General Surgery Myke Pulliam MD [address] [place] [address] 03/02/2023 Nutrition Services Nutrition Services Monica Perry, RDN [address] [place] [address] 03/14/2023 Laboratory Laboratory [facility] [address] [facility] [place] [address] 03/14/2023 Office Visit Family Medicine Annabella Victoria DO [address] [place] [address] 03/21/2023 Office Visit Hematology Oncology Macey Cruz MD [address] [facility] [place] [address] 03/21/2023 Office Visit Pharmacy Pharmacist2, [facility] [address] [place] [address] 03/27/2023 Office Visit Cardiology Kimmy López, [address] [facility] [place] [address] 06/20/2023 Immunization/Injection Hematology Oncolog y Nurse, Med 4 [address] [facility] [place] [address] 09/25/2023 Cardiac Studies [facility]iology [facility] [address] [facility] [place] [address] Health Maintenance Due Date Last Done Comments [...] D LEVEL ONCE IN A LIFETIME-USE SMARTSET# [id number] Completed 11/14/2022 GARDASIL-HPV IMMUNIZATION SERIES Aged Out No longer eligible based on patient's age to complete this topic Hepatitis B Aged Out No longer eligi ble based on patient's age to complete this topic MENINGOCOCCAL (MENACTRA/MENVEO) Aged Out No longer eligible based on patient's age to complete this topic documented as of this encounter Medical Devices Implanted Type Area Slate Splitting Supervisor Device Identifier Shelf Expiration Date Model / Serial / Lot Lens Intraoc 19.0 - [id number] - [id number] Implanted:Qty: 1 on 12/13/2021 by Mitchell Guzman MD at OR [facility] Left: Eye [employer] 06/06/2026 [id number] / [id number] / [id number] Lens Intraoc 19.0 - [id number] - [id number] Implanted:Qty: 1 on 12/27/2021 by Mitchell Guzman MD at OR [facility] Right: Eye [employer]OM[employer] 06/06/2026 [id number] / [id number] / [id number] documented as of this encounter Advance Directives [...] the patient have Health Care Power of Buttermaker Continuous Churn? No Code Status History Code Status Date Activated Date Inactivated Comments No Code 12/13/2021 6:43 AM 12/13/2021 1:23 PM This or tim reflects the patients wishes and were consensually agreed upon. Question Answer Comments Discussion of Advance Directives occurred with: Patient Does the patient have a Living Will? No Does the patient have Health Care Power of Buttermaker Continuous Churn? No Care Teams Manager Application Relationship Specialty Start Date End Date Annabella Victoria, [address] [place] [address] PCP - General Family Medicine 07/19/17 documented as of this encounter
--- OUTSIDE RECORDS SUMMARY | 2023-04-09 09:45 | External Medical Summary ---
Author Name Unknown Address Unknown Organization K09[facility] [place] [address] Laboratory Report Ordering Provider Test Date Status KELSEAPHARMACIST1 02/12/2023 10:15:25 Final Observation Date Value Abnormality Reference (Units ) Status HbA1C 02/12/2023 10:15:25 9.2 Above high normal 4. 0-5.6 (%) Final Performing Location [facility] [place] [address]
--- OUTSIDE RECORDS SUMMARY | 2023-04-09 09:45 | External Medical Summary | Summary of Care ---
Author Name Unknown Organization [facility] Address [address] [place] [address] Phone [phone] Care Team Providers Care Rf Technician Name Role Phone Annabella Victoria DO Primary Care Provider [phone] Reason for Visit * Reason Comments Follow Up S/p L partial mastec kristi. Encounter Details Date Type Department Care Team Description 02/01/2023 Office Visit General Surgery, [facility] [address] [place] [address] Myke Pulliam MD [address] [place] [address] Infiltrating ductal carcinoma of breast, left (HCC)*; History of breast cancer Allergies Active Allergy Reactions Severity Noted Date Comments Pollen Other (Please comment) 03/22/2016 Itchy, inflamed eyes Penicillins Rash 03/22/2016 Sulfa Antibiotics Nausea/vomiting 03/22/2016 documented as of this encounter (statuses as of 02/01/2023) Medications Medication Sig Dispensed Refills Start Date [...] A1c goal of less than 8.0% ([facility]) Inject under the skin 1.5 mg once a week . Do not start before April 03, 2022. 6 mL 3 04/03/2022 Active OneTouch Verio Reflect w/Device KitIndications:Type 2 diabetes mellitus with hemoglobin A1c goal of less than 8.0% ([facility]) Use as directed. Test Blood [...] without long-term current use of insulin ([facility]),Dyslipidemia Take 1 Tablet by mouth in the morning. 90 Tablet 3 09/06/2022 Active Letrozole 2.5 MG Oral Tablet (Femara)Indications:I nfiltrating ductal carcinoma of left breast (HCC),CLL (chronic lymphocytic leukemia) ([facility]) Take 1 Tablet by mouth in the morning. 90 Tablet 5 09/12/2022 Active Multivitamin Adults 50+ Oral Tablet Take 1 Tablet by mouth daily. 0 Active metFORMIN HCl ER 500 MG Oral Tablet Extended Release 24 Hour (Glucophage XR)Indications:Type 2 diabetes mellitus without complication, without long-term current use of insulin ([facility]) Take 1 Tablet by mouth 2 times a day with morning and evening meals. Take in addition to medication in pill pack until completed. 14 Tablet 0 10/09/2022 Active metFORMIN HCl ER 500 MG Oral Tablet Extended Release 24 Hour (Glucophage XR)Indications:Type 2 diabetes mellitus with hemoglobin A1c goal of less than 8.0% ([facility]),Type 2 diabetes mellitus without complication, without long-term current use of insulin ([facility]) Take 2 Tablets by mouth 2 times a day with morning and evening meals. 360 Tablet 3 10/09/2022 Active Sodium Fluoride 1.1 % Dental Cream [place] onto teeth every night at bedtime. 0 Active Nystatin-Triamcinolon e 415689-2.1 UNIT/GM-% External Cream (Mycolog) APPLY TOPICALLY 4 [...] TabletIndications:Inf iltrating ductal carcinoma of left breast ([facility]),CLL (chronic lymphocytic leukemia) ([facility]) Take 1 Tablet by mouth in the morning. 90 Tablet 5 12/13/2022 Active OneTouch Delica Lancets 33GIndications:Type 2 diabetes mellitus with hemoglobin A1c goal of less than 8.0% ([facility]) Test Blood sugar two to three times per day. E11.9 300 Each 3 12/18/2022 Active OneTouch Verio In Vitro Strip (Glucose Blood)Indications:Typ e 2 diabetes mellitus with hemoglobin A1c goal of less than 8.0% ([facility]) Test Blood sugar two to three times per day. E11.9 3 Strip 3 12/18/2022 Active Dulaglutide 1.5 MG/0.5ML Subcutaneous Solution Pen-injector ([employer]) Inject 1.5 mg under the skin once a week. 2 mL 5 12/22/2022 Active Hospital, Clinic, or Other Facility Administered Medication Ordered Dose Route Frequency Start Date End Date Status vitamin b-12 (Cyanocobalamin) inj 1,000 mcgIndications:B12 deficiency 1000 mcg IM [id number] 11/24/2022 10/26/2023 Active documented as of this encounter (statuses as of 02/01/2023) Active Problems Problem Noted Date Osteoporosis with [...] sinus infections 05/25/2016 Overview: 05/23>Saw ENT in [place]; CT 2 yrs ago- moved [place] -02/19--zpak,pred 03/22, pred 04/21;doxy 05/23--not on nasacort daily-resume and + claritin Preoperative general physical examinatio n 05/25/2016 Overview: 07/21-l-m risk--0.3/-1.7--rpt 3 yrs Type 2 diabetes mellitus wit hout complication, without long-term current use of insulin 04/10/2016 HTN, goal below 140/90 04/10/2016 Dyslipidemia 04/10/2016 Acquired hypothyroidism 04/10/2016 documented as of this encounter (statuses as of 02/01/2023) Resolved Problems Problem Noted Date Resolved Date Mammographic microcalcification 10/19/2016 08/13/2018 Overview: 12/21--scattered fibroglandular densities (25% - 50% fibroglandular), dystrophic ca+-rpt 1 yr Closed fracture of proximal end of right humerus with routine healing 10/19/2016 07/23/2018 Overview: 07/25/16 Encounter for screening mammogram for breast can cer 05/25/2016 07/23/2018 Overview: 05/2015 [place] Screen for colon cancer 05/25/2016 07/24/19 Overview: csope-- 10/05/14- nl, gr 1 IH> At [place]--rpt 10 yrs documented as of this encounter (statuses as of 02/01/2023) Immunizations Name Administration Dates Next Due COVID-19 [...] Sign Reading Time Taken Comments Blood Pressure - - Pulse - - Temperature - - Respiratory Rate - - Oxygen Saturation - - Inhaled Oxygen Concentration - - Weight 60.8 kg (134 lb) 02/01/2023 10:46 AM EDT Height - - Body Mass Index 27.06 11/29/2022 8:33 AM EDT documented in this encounter Progress Notes * Myke Pulliam MD - 02/01/2023 10:48 AM EDT [facility] NOTES SUBJECTIVE: Sera Plata is a 82 year old year old female who is now s/p a left partial mastectomy and sentinel lymph node resection on 07/28/22 for 17mm a high grade invasive ductal carcinoma. Estrogen receptor status is positive. Progesterone receptor status is positive. HER-2/susan receptors negative. She isseeing radiation oncology in the next few weeks to discuss radiation therapy. Once radiation therapy is completed, she will be placed on letrozole The patient is not having any pain. Fever has not been present. She has no wound drainage and has no wound erythema. OBJECTIVE: Weight 60.8 kg (134 lb), not currently . Examination today reveals healing left partial mastectomy and sentinel lymph node resection incision(s). There is no significant wound erythema. There is no ecchymosis or hematoma. There is no wound drainage. Range of motion about the affected shoulder is normal. There is a firm nodule/node deep inthe left axilla IMPRESSION: Excellent postoperative course without complications following left partial mastectomy and sentinel lymph node resection PLAN: we will plan for ultrasound of the left axilla for further characterization of the firm nodule/node that is palpable. She will return to clinic once this is complete. She will call with any newor concerning symptoms in the meantime. Myke Pulliam MD 02/01/23 documented in this encounter Nursing Notes * Amrit Avendaño MED ASSIST - 02/01/2023 10:47 AM EDT Chief Complaint Patient presents with Follow Up S/p L partial mastectomy. Verified patient. No pain, patinet is here with her son today. documented in this encounter Plan of Treatment Upcoming Encounters Date Type Specialty Care Team Description 02/08/2023 Imaging Radiology 02/12/2023 Office Visit Pharmacy Pharmacist1, [facility] [address] [facility] [place] [address] 02/15/2023 Office Visit General Surgery Myke Pulliam MD [address] [place] [address] 03/02/2023 Nutrition Services Nutrition Services Monica Perry RDN [address] [place] [address] 03/14/2023 Laboratory Laboratory [facility] [address] [facility] [place] [address] 03/14/2023 Office Visit Family Medicine Annabella Victoria DO [address] [place] [address] 03/21/2023 Office Visit Hematology Oncology Macey Cruz MD [address] [facility] [place] [address] 03/27/2023 Office Visit Cardiology Kimmy López, DO [address] [facility] [place] [address] 06/20/2023 Immunization/Injection Hematology Oncolog y Nurse, Med [address] [place] [address] 09/25/2023 Cardiac Studies Cardiology [facility] [address] [place] [address] Scheduled Orders Name Type Priority Associated Diagnoses Orde r Schedule US BREAST AXILLA LEFT Medical Imaging Routine Infiltrating ductal carcinoma of breast, left (HCC) History of breast cancer Expected: 02/01/2023, Expires: 03/03/2024 Health Maintenance Due Date Last Done Comments Albumin/Creatinine Ratio 05/10/2022 022, 09/27/2017, 07/04/2016 DIABETES-EYE EXAM 08/15/2022 08/15/2021, , 07/15/2019, Additional history exists Influenza Vaccine (FLU shot) (#1) 2023 02/16/2022, 02/04/2021, 02/13/2020, Additional history exists TSH 02/09/2023 02/09/2022, 10/06, 08/20/2019, Additional history exists HbA1c 02/27/2023 08/28/2022, 04/06, 12/08/2021, Additional history exists Depression Screening 09/07/2023 09/06/2022 [...] 05/26/2002 Zoster Vaccines Completed 03/25/2019, 11/05, 02/01/2007 COVID-19 Vaccine Completed 02/03/2022, , 03/02/2021, Additional history exists VITAMIN D LEVEL ONCE IN A LIFETIME-USE SMARTSET# [id number] Completed 11/14/2022 GARDASIL-HPV IMMUNIZATION SERIES Aged Out No longer eligible based on patient's age to complete this topic Hepatitis B Aged Out No longer eligi ble based on patient's age to complete this topic MENINGOCOCCAL (MENACTRA/MENVEO) Aged Out No longer eligible based on patient's age to complete this topic documented as of this encounter Medical Devices Implanted Type Area Cloth Worker Device Identifier Shelf Expiration Date Model / Serial / Lot Lens Intraoc 19.0 - [id number] - [id number] Implanted:Qty: 1 on 12/13/2021 by Mitchell Guzman MD at OR [facility] Left: Eye [employer] 06/06/2026 [id number] / [id number] / [id number] Lens Intraoc 19.0 - [id number] - [id number] Implanted:Qty: 1 on 12/27/2021 by Mitchell Guzman MD at OR [facility] Right: Eye [employer]OM[employer] 06/06/2026 [id number] / [id number] / [id number] documented as of this encounter Visit Diagnoses Diagnosis Infiltrating ductal carcinoma of breast, left (HCC)- Primary History of breast cancer Personal history of malignant neoplasm of breast documented in this encounter Advance Directives Latest Code Status on File Code Status Date Activated Date Inactivated Comments No Code 12/27/2021 6:34 AM 12/27/2021 1:09 PM This order reflects the patients wishes and were consensually agreed upon. Question Answer Comments Discussion of Advance Directives occurred with: Patient Does the patient have a Living Will? No Does the patient have Health Care Power of Pipe Washer? No Code Status History Code Status Date Activated Date Inactivated Comments No Code 12/13/2021 6:43 AM 12/13/2021 1:23 PM This or tim reflects the patients wishes and were consensually agreed upon. Question Answer Comments Discussion of Advance Directives occurred with: Patient Does the patient have a Living Will? No Does the patient have Health Care Power of Pipe Washer? No Care Teams Rf Technician Relationship Specialty Start Date End Date Annabella Victoria, DO [address] [place] [address] PCP - General Family Medicine 07/19/17 documented as of this encounter
--- OUTSIDE RECORDS SUMMARY | 2023-04-09 09:45 | External Medical Summary ---
Author Name Unknown Address Unknown Organization K09:[facility] [address] [place] [address] Laboratory Report Ordering Provider Test Date Status LEW CHACON 02/13/2023 11:31:31 Final Observation Date Value Abnormality Reference (Units ) Status Color of Urine by Auto 02/13/2023 11:31:31 Yellow Light Yellow, Yellow, Dark Yellow Final Clarity, Urine 02/13/2023 11:31:31 Cloudy Abnormal Clear Final Glucose [Mass/volume] in Urine by Automated test strip 02/13/2023 11:31:31 500 Abnormal Negative (mg/dL) Final Bilirubin.total [Presence] in Urine by Automated test strip 02/13/2023 11:31:31 Negative Negative Final Ketones [Mass/volume] in Urine by Automated test strip 02/13/2023 11:31:31 Trace Abnormal Negative (mg/dL) Final Specific gravity, Urine 02/13/2023 11:31:31 1.015 1.003-1.030 Final Hemoglobin [Presence] in Urine by Automated test strip 02/13/2023 11:31:31 Large Abnormal Negative Final pH, Urine 02/13/2023 11:31:31 5.5 5.0-7.5 (Units) Final Protein [Mass/volume] in Urine by Automated test strip 02/13/2023 11:31:31 100 Abnormal Negative (mg/dL) Final Urobilinogen [Mass/volume] in Urine by Automated test strip 02/13/2023 11:31:31 0.2 0.2, 1.0 (mg/dL) Final Nitrite [Presence] in Urine by Automated test strip 02/13/2023 11:31:31 Negative Negative Final Leukocyte esterase [Presence] in Urine by Automated test strip 02/13/2023 11:31:31 Small Abnormal Negative Final RBC, Urine 02/13/2023 11:31:31 10-19 Abnormal 0-2 (/HPF) Final WBC, Urine 02/13/2023 11:31:31 50+ Abnormal 0-2 (/HPF) Final Bacteria [#/area] in Urine sediment by Microscopy high power field 02/13/2023 11:31:31 51-100 Abnormal 0-25 (/HPF) Final Performing Location [facility] [place] [address]
--- OUTSIDE RECORDS SUMMARY | 2023-04-09 09:45 | External Medical Summary | Summary of Care ---
Author Name Unknown Organization [facility] Address [address] [place] [address] Phone [phone] Care Team Providers Care Weights And Measures Inspector Name Role Phone Annabella Victoria DO Primary Care Provider [phone] Reason for Visit * Reason Comments Diabetes Follow-Up Dosage Adjustment In Person (Anticoag Cl inic) Encounter Details Date Type Department Care Team Description 02/12/2023 Office Visit Pharmacy, [facility] [address] [facility] [place] [address] Pharmacist1, [facility] [address] [facility] [place] [address] Type 2 diabetes mellitus with hemoglobin A1c goal of less than 8.0% ([facility])*; Type 2 diabetes mellitus without complication, without long-term current use of insulin ([facility]) Allergies Active Allergy Reactions Severity Noted Date [...] goal of less than 8.0% ([facility]) Inject under the skin 1.5 mg once a week . Do not start before April 03, 2022. 6 mL 3 04/03/2022 Active OneTouch Verio Reflect w/Device KitIndications:Type 2 diabetes mellitus with hemoglobin A1c goal of less than 8.0% ([facility]) Use as directed. Test Blood [...] long-term current use of insulin ([facility]),Dyslipidemia Take 1 Tablet by mouth in the morning. 90 Tablet 3 09/06/2022 Active Letrozole 2.5 MG Oral Tablet (Femara)Indications:I nfiltrating ductal carcinoma of left breast (HCC),CLL (chronic lymphocytic leukemia) ([facility]) Take 1 Tablet by mouth in the morning. 90 Tablet 5 09/12/2022 Active Multivitamin Adults 50+ Oral Tablet Take 1 Tablet by mouth daily. 0 Active metFORMIN HCl ER 500 MG Oral Tablet Extended Release 24 Hour (Glucophage XR)Indications:Type 2 diabetes mellitus without complication, without long-term current use of insulin ([facility]) Take 1 Tablet by mouth 2 times a day with morning and evening meals. Take in addition to medication in pill pack until completed. 14 Tablet 0 10/09/2022 Active metFORMIN HCl ER 500 MG Oral Tablet Extended Release 24 Hour (Glucophage XR)Indications:Type 2 diabetes mellitus with hemoglobin A1c goal of less than 8.0% ([facility]),Type 2 diabetes mellitus without complication, without long-term current use of insulin ([facility]) Take 2 Tablets by mouth 2 times a day with morning and evening meals. 360 Tablet 3 10/09/2022 Active Sodium Fluoride 1.1 % Dental Cream [place] onto teeth every night at bedtime. 0 Active Nystatin-Triamcinolon e 534167-3.1 UNIT/GM-% External Cream (Mycolog) APPLY TOPICALLY 4 [...] ductal carcinoma of left breast ([facility]),CLL (chronic lymphocytic leukemia) ([facility]) Take 1 Tablet by mouth in the morning. 90 Tablet 5 12/13/2022 Active OneTouch [place] Lancets 33GIndications:Type 2 diabetes mellitus with hemoglobin A1c goal of less than 8.0% ([facility]) Test Blood sugar two to three times per day. E11.9 300 Each 3 12/18/2022 Active OneTouch Verio In Vitro Strip (Glucose Blood)Indications:Typ e 2 diabetes mellitus with hemoglobin A1c goal of less than 8.0% ([facility]) Test Blood sugar two to three times per day. E11.9 3 Strip 3 12/18/2022 Active Dulaglutide 1.5 MG/0.5ML Subcutaneous Solution Pen-injector (TrAlertaPhone) Inject 1.5 mg under the skin once a week. 2 mL 5 12/22/2022 Active Repaglinide 0.5 MG Oral Tablet (Prandin)Indications: Type 2 diabetes mellitus with hemoglobin A1c goal of less than 8.0% ([facility]),Type 2 diabetes mellitus without complication, without long-term current use of insulin ([facility]) Take 1 Tablet by mouth daily before breakfast. 90 Tablet 3 02/12/2023 Active Hospital, Clinic, or Other Facility Administered Medication Ordered Dose Route Frequency Start Date End Date Status vitamin b-12 (Cyanocobalamin) inj 1,000 mcgIndications:B12 deficiency 1000 mcg IM [id number] 11/24/2022 10/26/2023 Active documented as of this [...] sinus infections 05/25/2016 Overview: 05/23>Saw ENT in [place]; CT 2 yrs ago- moved [place] -02/19--zpak,pred 03/22, pred 04/21;doxy 05/23--not on nasacort [...] breast can cer 05/25/2016 07/23/2018 Overview: 05/2015 [facility] Screen for colon cancer 05/25/2016 07/24/19 19 Overview: csope-- 10/05/14- nl, gr 1 IH> At [facility]--rpt 10 yrs documented as of this encounter [...] as of this encounter Progress Notes * Chele Falcon V, [facility] - 02/12/2023 10:48 AM EDT Medication Therapy Disease Management Clinic - Diabetes Management Progress Note Sera Plata, identified by name and date of , is a 82 year old female being seen for diabetes management/education. Patient presents for return diabetic visit. DIABETES: Current diabetic medications: Metformin ER 500mg two tablets twice daily Trulicity 1.5mg once weekly Medication Injection Site: Abdomen Lifestyle: Diet: unchanged History of Treatment Barriers: Lifestyle: None Therapy considerations: None Medication: None: Glucose Review/SMBG: Readings obtained from patient documented BG logbook Pre am HS 137 168 149 178 289 174 231 179 184 212 161 148 287 172 272 162 270 263 151 264 137 291 140 271 140 255 160 156 160 171 188 240 176 226 171 272 180 282 148 229 150 131 185 133 218 146 214 133 222 183 201 133 238 184 227 144 184 168 209 161 201 229 208 218 182 199 123 197 157 195 130 336 171 271 148 230 143 Pre am HS Average 159 234 Hi 208 336 Lo 123 156 Range 85 180 Hypoglycemia: Does your blood sugar go below 70 mg/dL? No Hyperglycemia symptoms present: none Goal <8 Recent Labs Units 02/12/23 1015 08/28/22 1043 04/24/22 1412 HEMOGLOBIN A1C POCT - [facility] % 9.2* 7.3* 7.1* Recent Labs Units 12/13/22 1041 09/11/22 0948 02/09/22 1053 ESTIMATED GLOMERULAR FILTRATION RATE - [facility] mL/min 61 77 67 CREATININE - [facility] mg/dL 0.9 0.8 0.9 Lab Results Component Value Date/Time CREATININE - [facility] 0.9 12/13/2022 10:41 AM CREATININE - [facility] 0.8 09/11/2022 09:48 AM CREATININE - [facility] 0.9 02/09/2022 10:53 AM CREATININE - [facility] 0.8 03/02/2020 11:20 AM CREATININE - [facility] 1.0 08/20/2019 09:24 AM CREATININE - [facility] 0.9 02/11/2019 09:22 AM CREATININE, RANDOM URINE - [facility] 133 05/10/2021 02:50 PM CREATININE, RANDOM URINE - [facility] 100 09/27/2017 09:46 AM CREATININE, RANDOM URINE - [facility] 95 07/04/2016 09:32 AM HYPERTENSION: Patient on ACEi/ARB: yes, Losartan 100mg daily BP Readings from Last 3 Encounters: 01/05/23 130/70 12/13/22 156/82 11/24/22 110/68 Blood pressure at goal: yes HYPERLIPIDEMIA: Patient is taking moderate or high intensity statin: yes, Pravastatin 40mg daily HEALTH MAINTENANCE REVIEW: Health Maintenance Due Topic Date Due Albumin/Creatinine Ratio 05/10/2022 DIABETES-EYE EXAM 08/15/2022 Influenza Vaccine (FLU shot) (1) 01/05/2023 COVID-19 Vaccine ( - season) 2023 TSH 02/09/2023 HbA1c 02/27/2023 ASSESSMENT & PLAN: ICD-10-CM 1. Type 2 diabetes mellitus with hemoglobin A1c goal of less than 8.0% (HCC) E11.9 2. Type 2 diabetes mellitus without complication, without long-term current use of insulin (HCC) E11.9 BG Readings - Blood sugars uncontrolled. Rising during the day and falling 75 points overnight Medications - Reviewed current regimen, patient is adherent to regimen. Discussed starting Prandin 0.5mg daily at breakfast to help with BG rise. She wore a G7 sample for 2 weeks and BG chelle after breakfast and remained high all day. Diet, Exercise, Lifestyle - No significant lifestyle changes since last visit. Discussed with patient today. Patient is agreeable to SMBG 2 time(s) daily. Patient aware to contact clinic if any hypoglycemia before next visit. MEDICATION CHANGES: yes, see below; preferred pharmacy: [facility] Medications: Metformin ER 500mg two tablets twice daily Trulicity 1.5mg once weekly START: Repaglinide 0.5mg before breakfast HEALTH MAINTENANCE INTERVENTIONS: Labs: ordered urine Immunizations: getting flu and Covid soon Foot Exam: Up to Date Eye Exam: needs completed Annual Wellness Visit: Up to Date FOLLOW UP: Return to clinic in 5 weeks 03/21/2023 Chele Falcon RPh, CDE Clinical Pharmacist - [employer] Supervisor Medication Therapy Management Clinic 02/12/2023, 10:48 AM documented in this encounter Plan of Treatment Upcoming Encounters Date Type Specialty Care Team Description 02/15/2023 Office Visit General Surgery Myke Pulliam MD [address] [place] [address] 03/02/2023 Nutrition Services Nutrition Services Monica Perry RDN [address] [place] [address] 03/14/2023 Laboratory Laboratory [place] [address] [place] [address] 03/14/2023 Office Visit Family Medicine Annabella Victoria DO [address] [place] [address] 03/21/2023 Office Visit Hematology Oncology Macey Cruz MD [address] [facility] [place] [address] 03/21/2023 Office Visit Pharmacy Pharmacist2, [facility] [address] [place] [address] 03/27/2023 Office Visit Cardiology Kimmy López DO [address] [place] [address] 06/20/2023 Immunization/Injection Hematology Oncolog y Nurse, Med [facility] [address] [employer] [facility] [place] [address] 09/25/2023 Cardiac Studies Cardiology Dania Hussein [address] [place] [address] Health Maintenance Due Date Last Done Comments [...] D LEVEL ONCE IN A LIFETIME-USE SMARTSET# [id number] Completed 11/14/2022 GARDASIL-HPV IMMUNIZATION SERIES Aged Out No longer eligible based on patient's age to complete this topic Hepatitis B Aged Out No longer eligi ble based on patient's age to complete this topic MENINGOCOCCAL (MENACTRA/MENVEO) Aged Out No longer eligible based on patient's age to complete this topic documented as of this encounter Medical Devices Implanted Type Area Construction Specialist Device Identifier Shelf Expiration Date Model / Serial / Lot Lens Intraoc 19.0 - [id number] - [id number] Implanted:Qty: 1 on 12/13/2021 by Mitchell Guzman MD at [facility] Left: Eye [employer] 06/06/2026 [id number] / [id number] / [id number] Lens Intraoc 19.0 - [id number] - [id number] Implanted:Qty: 1 on 12/27/2021 by Mitchell Guzman MD at OR [facility] Right: Eye [employer] 06/06/2026 [id number] / [id number] / [id number] documented as of this encounter Procedures Procedure Name Priority Date/Time Associated Diagnosis Comments HEMOGLOBIN A1C, POINT OF CARE NITHIN 02/12/2023 10:15 AM EDT documented in this encounter Results * (ABNORMAL) HEMOGLOBIN A1C, POINT OF CARE (02/12/2023 10:15 AM EDT) Hemoglobin A1c 9.2(H) 4.0 - 5.6 % 02/12/2023 11:10 AM EDT [facility]- Blood 02/12/2023 10:1 5 AM EDT 02/12/2023 11:10 AM EDT [facility] Pharmacist1 LAB POINT OF C ARE TEST DOCKED DEVICE UNSOLICITED RESULTS [facility] [address]- [address] [place] [address] documented in this encounter Visit Diagnoses Diagnosis Type 2 [...] the patient have Health Care Power of Gas Turbine Powerplant Mechanic? No Code Status History Code Status Date Activated Date Inactivated Comments No Code 12/13/2021 6:43 AM 12/13/2021 1:23 PM This or tim reflects the patients wishes and were consensually agreed upon. Question Answer Comments Discussion of Advance Directives occurred with: Patient Does the patient have a Living Will? No Does the patient have Health Care Power of Gas Turbine Powerplant Mechanic? No Care Teams Weights And Measures Inspector Relationship Specialty Start Date End Date Annabella Victoria, DO [address] [place] [address] PCP - General Family Medicine 07/19/17 documented as of this encounter
--- OUTSIDE RECORDS SUMMARY | 2023-04-09 09:45 | External Medical Summary ---
Author Name Unknown Address Unknown Organization K01:[facility] [place] - [address] [place] [address] Laboratory Report Ordering Provider Test Date Status NAN MALIN 03/14/2023 13:47:36 Final Observation Date Value Abnormality Reference (Units ) Status Vitamin B12 03/14/2023 13:47:36 217 Below low normal 2 32-1245 (pg/mL) Final Performing Location LABORATORY C - [address] [place] [address]
--- OUTSIDE RECORDS SUMMARY | 2023-04-09 09:45 | External Medical Summary | Summary of Care ---
Author Name Unknown Organization [facility] Address [address] [place] [address] Phone [phone] Care Team Providers Care Community Music Therapist Name Role Phone Annabella Victoria DO Primary Care Provider [phone] Reason for Visit * Reason Comments Medical Nutrition Therapy Follow Up Encounter Details Date Type Department Care Team (Latest Contact Info) Description 03/02/2023 11:30 AM EDT Nutrition Services Nutrition, [facility] [address] [place] [address] Monica Perry RDN [address] [place] [address] Poor appetite*; Type 2 diabetes mellitus with hemoglobin A1c goal of less than 8.0% ([facility]); Type 2 diabetes mellitus without complication, without long-term current use of insulin ([facility]); Dyslipidemia; HTN, goal below 140/90; DM type 2 with diabetic peripheral neuropathy ([facility]); Osteoporosis with symptom management only; Type II diabetes mellitus with neurological manifestations ([facility]) Allergies Active Allergy Reactions Criticality Noted Date Comments Pollen Other (Please comment) 03/22/2016 Itchy, inflamed eyes Penicillins Rash 03/22/2016 Sulfa Antibiotics Nausea/vomiting 03/22/2016 documented as of this encounter (statuses as of 03/02/2023) Medications Medication Sig Dispensed Refills Start Date [...] goal of less than 8.0% ([facility]) Inject under the skin 1.5 mg once a week . Do not start before April 03, 2022. 6 mL 3 04/03/2022 Active OneTouch Verio Reflect w/Device KitIndications:Type 2 diabetes mellitus with hemoglobin A1c goal of less than 8.0% ([facility]) Use as directed. Test Blood [...] long-term current use of insulin ([facility]) Take 1 Tablet by mouth 2 times a day with morning and evening meals. Take in addition to medication in pill pack until completed. 14 Tablet 0 10/09/2022 Active metFORMIN HCl ER 500 MG Oral Tablet Extended Release 24 Hour (Glucophage XR)Indications:Type 2 diabetes mellitus with hemoglobin A1c goal of less than 8.0% ([facility]),Type 2 diabetes mellitus without complication, without long-term current use of insulin ([facility]) Take 2 Tablets by mouth 2 times a day with morning and evening meals. 360 Tablet 3 10/09/2022 Active Sodium Fluoride 1.1 % Dental Cream [place] onto teeth every night at bedtime. 0 Active Nystatin-Triamcinolon e 651407-5.1 UNIT/GM-% External Cream (Mycolog) APPLY TOPICALLY 4 [...] ductal carcinoma of left breast ([facility]),CLL (chronic lymphocytic leukemia) ([facility]) Take 1 Tablet by mouth in the morning. 90 Tablet 5 12/13/2022 Active OneTouch Keo Moore 33GIndications:Type 2 diabetes mellitus with hemoglobin A1c goal of less than 8.0% ([facility]) Test Blood sugar two to three times per day. E11.9 300 Each 3 12/18/2022 Active OneTouch Verio In Vitro Strip (Glucose Blood)Indications:Typ e 2 diabetes mellitus with hemoglobin A1c goal of less than 8.0% ([facility]) Test Blood sugar two to three times per day. E11.9 3 Strip 3 12/18/2022 Active Dulaglutide 1.5 MG/0.5ML Subcutaneous Solution Pen-injector (Locately) Inject 1.5 mg under the skin once a week. 2 mL 12/22/2022 Active Repaglinide 0.5 MG Oral Tablet (Prandin)Indications: Type 2 diabetes mellitus with hemoglobin A1c goal of less than 8.0% ([facility]),Type 2 diabetes mellitus without complication, without long-term current use of insulin ([facility]) Take 1 Tablet by mouth daily before breakfast. 90 Tablet 3 02/12/2023 Active Hospital, Clinic, or Other Facility Administered Medication Ordered Dose Route Frequency Start Date End Date Status vitamin b-12 (Cyanocobalamin) inj 1,000 mcgIndications:B12 deficiency 1000 mcg IM [id number] 11/24/2022 10/26/2023 Active documented as of this encounter (statuses as of 03/02/2023) Active Problems Problem Noted Date Diagnosed Date [...] sinus infections 05/25/2016 Overview: 05/23>Saw ENT in [place]; [place] 2 yrs ago- moved [place] -02/19--zpak,pred 03/22, pred 04/21;doxy 05/23--not on nasacort daily-resume and + claritin Preoperative general physical examination 2016 Overview: 07/21-l-m risk--0.3/-1.7--rpt 3 yrs Type 2 diabetes mellitus wit hout complication, without long-term current use of insulin 04/10/2016 HTN, goal below 140/90 04/10/2016 Dyslipidemia 04/10/2016 Acquired hypothyroidism 04/10/2016 documented as of this encounter (statuses as of 03/02/2023) Resolved Problems Problem Noted Date Diagnosed Date [...] csope-- 10/05/14- nl, gr 1 IH> At [place]--rpt 10 yrs documented as of this encounter (statuses as of 03/02/2023) Immunizations Name Administration Dates Next Due COVID-19 [...] - Inhaled Oxygen Concentration - - Weight 60.1 kg (132 lb 8 oz) 03/02/2023 1:41 PM EDT Height 149.9 cm (4' 11") 03/02/2023 1:41 PM EDT Body Mass Index 26.76 03/02/2023 1:41 PM EDT documented in this encounter Patient Instructions * Patient Instructions* Monica Perry RDN - 03/02/2023 12:07 PM EDT Patient will add high-fat, high-protein foods to what you are already eating, such as cheese on crackers or vegetables or PB on crackers or bread or fruit, or butter or vinson on bread, or gravy on meat or potatoes. (Refer to handout.) documented in this encounter Progress Notes * Monica Perry RDN - 03/02/2023 11:35 AM EDT NUTRITION FOLLOW-UP NOTE - OUTPATIENT [facility] Name: Sera Plata Location: [facility] Date: 03/02/2023 Time: 11:35 AM Patient was identified by name and date. Patient was seen [id number] in the clinic. Reason for Nutrition Follow-up: Type 2 Diabetes, poor appetite NUTRITION ASSESSMENT: Client History Patient is a 82 year old female being seen for above issues. She is accompanied by her son, Josiah today. Support System: Child Barriers to Learning: forgetful, loss of concentration per pt report Special Education Needs: None Physical Activity: Sedentary Food/Nutrition-Related History Describes typical diet history/24 hr recall Breakfast: 10 AM oatmeal with 1 tsp sugar and a little salt, smoothie with light OJ, banana, strawberries, 1/2 scoop protein powder-1 cup Snacks: none Lunch: skips Snacks: sometimes crackers with PB, milk Dinner: 6-7 PM 1 serving of milk, chicken and rice or boiled potato or meal from son's house or cereal Snacks: carlyle covered ice cream bar Drinks: water, occasional diet root beer Restaurant meals: rare Alcohol: None Sips on Equate protein supplement Diet Recall/Food Logs Indicate: AREAS FOR IMPROVEMENT: Poor meal distribution Inadequate fiber intake Inadequate fruit and vegetable intake Inadequate calorie intake Inadequate protein intake POSITIVE: Portion control Uses calorie free beverages Food and Nutrient Intake and other pertinent information: Patient reports no improvement in her appetite since last visit (11/29/2022). She complains of everything tasting funny. States she is scheduled for teeth extraction on April 07. She brought her glucose log today. FBS levels in mid-upper 100's, but trending down since Prandin added on February 12 (saw Joan in [facility]). Occasional evening level in low to mid-200's. Medications Changes/Updates: Prandin added Nutrition-Focused Physical Findings Overall appearance: WNWD, short stature Anthropometric Measurements Current Weight: Wt Readings from Last 1 Encounters: 03/02/23 60.1 kg (132 lb 8 oz) Wt Readings from Last 4 Encounters: 03/02/23 60.1 kg (132 lb 8 oz) 02/15/23 60.7 kg (133 lb 12.8 oz) 02/01/23 60.8 kg (134 lb) 01/05/23 59.8 kg (131 lb 12.8 oz) Weight Change: stable BMI Readings from Last 1 Encounters: 03/02/23 26.76 kg/m Biochemical Data, Medical Tests, and Procedures Latest Reference Range & Units 02/12/23 10:15 Hemoglobin A1c 4.0 - 5.6 % 9.2 (H) (H): Data is abnormally high Above level reviewed. Previous Nutrition Diagnosis: Suboptimal protein-energy intake related to Poor meal distribution, Inadequate fiber intake, Inadequate fruit and vegetable intake, Inadequate calorie intake, Inadequate protein intake as evidenced by Reported diet and/or activity recall Progress towards goals: Patient will aim for 2 servings of dairy food daily. Partially MET Patient will aim for 2 servings of a high-protein supplement. Also keep protein powder on hand to mix in soft foods-hot cereal or cream soup or pudding or mashed potatoes. NOT MET Patient will have frozen meals on hand to heat up when you don't feel like preparing a meal. Partially MET. Son states he brings pt an evening meal for many evening meals. Patient will continue taking a multi-vitamin. Try to get one for older adults (will have a higher amount of calcium). MET CURRENT NUTRITION DIAGNOSIS Suboptimal protein-energy intake related to Poor meal distribution, Inadequate fiber intake, Inadequate fruit and vegetable intake, Inadequate calcium intake, Inadequate calorie intake, Inadequate protein intake as evidenced by Reported diet and/or activity recall NUTRITION INTERVENTION: NUTRITION EDUCATION Initial/brief nutrition education NUTRITION COUNSELING Strategies Nutrition Prescription: Diet: Consistent Carbohydrate Good Nutrition High Protein High Calcium After having teeth extracted, pt will need a soft diet. Daily Calorie Needs: 1500 Kcals Daily Protein Needs: 60-65 Grams protein Current Goals: add high-fat, high-protein foods to what you are already eating, such as cheese on crackers or vegetables or PB on crackers or bread or fruit, or butter or vinson on bread, or gravy on meat or potatoes. (Refer to handout.) Dietitian Action: Encouraged patient to add a serving of a high-protein food. She currently shares a homemade protein smoothie with her son. Patient states she was told to limit high-calcium foods but cannot tell me why or who told her this. Encouraged her to consume at least 2 servings daily. Discussed increasing calories and protein by adding gravies, butter, cheese, PB, vinson, butter, etc to what she is already eating (referred to handout below). Suggestions provided. Son notes he is concerned about pt having teeth extracted; states when this procedure was done in the past, pt's glucose level decreased too low, requiring seeking medical help. Encouraged her to consume a whole-grain and a high-protein supplement day prior to having this procedure. Discussed eating any soft foods she can tolerate after this is done. Other Education Material: Academy [employer] Nutrition Care Manual Handout -Underweight Nutrition Therapy Recommendations to Ordering Provider: Continue current plan of nutrition care. NUTRITION MONITORING AND EVALUATION: The following will be monitored and evaluated at the next visit: Monitor weight. Monitor goals and progress. Plan: Patient scheduled to return in 3 months. 30 minutes Medical Nutrition Therapy Time In: 1132 (03/02/23 1358) Time Out: 1208 (03/02/23 1358) 15 min (8-22 min) 30 min (23-37 min) 45 min (38-52 min) 60 min (53-67 min) 75 min (68-82 min) 90 min (83-97 min) 105 min (98-113 min) Monica Perry RDN NUTRITION, [facility] documented in this encounter Plan of Treatment Upcoming Encounters Date Type Department Care Team (Late st Contact Info) Description 03/14/2023 1:40 PM EST Laboratory Laboratory, [facility] [address] [place] [id number] Petar Richardson [address] [place] [address] 03/14/2023 2:20 PM EST Office Visit Family Practice [facility] [address] [place] [address] Annabella Victoria DO [address] [place] [address] 03/19/2023 3:30 PM EST Office Visit Pharmacy, [facility] [address] [facility] [place] [address] Pharmacist2, [facility] [address] [place] [address] 03/21/2023 2:30 PM EST Office Visit Hematology/Oncology [facility] [place] [address] [place] [address] Macey Cruz MD [address] [place] [address] 03/27/2023 11:45 AM EST Office [facility] [place] [address] Kimmy López, [address] [facility] [place] [address] 05/30/2023 11:00 AM EST Imaging [facility] 1st Floor, [place] [address] [facility] [place] [address] 06/04/2023 2:30 PM EST Nutrition Services Nutrition, [facility] [address] [facility] [place] [address] Monica Perry, LEON [address] [place] [address] 06/13/2023 10:30 AM EST Office Visit General Surgery, [facility] [address] [facility] [place] [address] Myke Pulliam MD [address] [place] [address] 06/20/2023 11:00 AM EST Immunization/Injecti on Hematology/Oncology Treatment, [place] [address] [place] [address] Nurse, Med [address] [place] [address] 09/25/2023 9:30 AM EDT Cardiac Studies Cardiology, [facility] [address] [place] [address] [facility] [address] [place] [address] Health Maintenance Due Date Last Done Comments Hepatitis B (1 of 3 - Risk 3-dose series) 2001 Albumin/Creatinine Ratio 05/10/2022 022, 09/27/2017, 07/04/2016 DIABETES-EYE [...] D LEVEL ONCE IN A LIFETIME-USE SMARTSET# [id number] Completed 11/14/2022 GARDASIL-HPV IMMUNIZATION SERIES Aged Out No longer eligible based on patient's age to complete this topic MENINGOCOCCAL (MENACTRA/MENVEO) Aged Out No longer eligible based on patient's age to complete this topic documented as of this encounter Medical Devices Implanted Type Area School Year Nanny Device Identifier Shelf Expiration Date Model / Serial / Lot Lens Intraoc 19.0 - [id number] - [id number] Implanted:Qty: 1 on 12/13/2021 by Mitchell Guzman MD at OR [facility] Left: Eye [employer] 06/06/2026 [id number] / [id number] / [id number] Lens Intraoc 19.0 - [id number] - [id number] Implanted:Qty: 1 on 12/27/2021 by Mitchell Guzman MD at OR [facility] Right: Eye [employer] 06/06/2026 [id number] / [id number] / [id number] documented as of this encounter Visit Diagnoses Diagnosis Poor appetite- Primary Anorexia Type 2 diabetes mellitus with hemoglobin A1c goal of less than 8.0% (HCC) Type 2 diabetes mellitus without complication, without long-term current use of insulin (HCC) Dyslipidemia Other and unspecified hyperlipidemia HTN, goal below 140/90 Unspecified essential hypertension DM type 2 with diabetic peripheral neuropathy (HCC) Type II or unspecified type diabetes mellitus with neurological manifestations, not stated as uncontrolled Osteoporosis with symptom management only Osteoporosis, unspecified Type II diabetes mellitus with neurological manifestations (HCC) Type II or unspecified type diabetes mellitus with neurological manifestations, not stated as uncontrolled documented in this encounter Advance Directives Latest Code Status on File Code Status Date Activated Date Inactivated Comments No Code 12/27/2021 6:34 AM 12/27/2021 1:09 PM This order reflects the patients wishes and were consensually agreed upon. Question Answer Comments Discussion of Advance Directives occurred with: Patient Does the patient have a Living Will? No Does the patient have Health Care Power of Rec Therapist? No Code Status History Code Status Date Activated Date Inactivated Comments No Code 12/13/2021 6:43 AM 12/13/2021 1:23 PM This or tim reflects the patients wishes and were consensually agreed upon. Question Answer Comments Discussion of Advance Directives occurred with: Patient Does the patient have a Living Will? No Does the patient have Health Care Power of Rec Therapist? No Care Teams Community Music Therapist Relationship Specialty Start Date End Date Annabella Victoria DO [address] [place] [address] PCP - General Family Medicine 07/19/17 documented as of this encounter
--- OUTSIDE RECORDS SUMMARY | 2023-04-09 09:45 | External Medical Summary | Summary of Care ---
Author Name Unknown Organization [facility] Address [address] [place] [address] Phone [phone] Care Team Providers Care Boot Repairer Name Role Phone Katie Victoria DO Primary Care Provider [phone] Reason for Visit * Reason Comments eRx-Medication Refill Encounter Details Date Type Department Care Team (Late st Contact Info) Description 03/13/2023 Refill Pharmacy, [facility] [address] [place] [address] Katie Victoria DO [address] [place] [address] Type 2 diabetes mellitus with hemoglobin A1c goal of less than 8.0% ([facility]) Allergies Active Allergy Reactions Criticality Noted Date Comments Pollen Other (Please comment) 03/22/2016 Itchy, inflamed eyes Penicillins Rash 03/22/2016 Sulfa Antibiotics Nausea/vomiting 03/22/2016 documented as of this encounter (statuses as of 03/13/2023) Medications Medication Sig Dispensed Refills Start Date End Date Status Omeprazole Magnesium 20 MG Oral Tablet Delayed Release (PriLOSEC OTC) Take 1 Tablet by mouth as needed for Heartburn. 0 Active ProAir HFA 108 (90 Base) MCG/ACT Inhalation Aerosol Solution Inhale 2 Puffs by mouth every 4 hours as needed for Wheezing. 18 g 1 1 Active Trulicity 1.5 MG/0.5ML Subcutaneous Solution Pen-injector (Dulaglutide)Indica tions:Type 2 diabetes mellitus with hemoglobin A1c goal of less than 8.0% ([facility]) Inject under the skin 1.5 mg once a week . Do not start before April 03, 2022. 6 mL 3 2 Active OneTouch Verio Reflect w/Device KitIndications:Type 2 diabetes mellitus with hemoglobin A1c goal of less than 8.0% ([facility]) Use as directed. Test Blood sugar one to two times per day. E11.9 1 Kit 0 3 Active Macular Health Formula Oral Capsule Take by mouth. 0 Active Levothyroxine Sodium 50 MCG Oral Tablet (Levoxyl)Indication s:Acquired hypothyroidism (at least 30 min prior to breakfast or other meds) 90 Tablet 3 3 Active Aspirin 81 MG Oral Tablet Chewable Take 1 Tablet by mouth in the morning. with food.. 90 Tablet 3 3 Active Losartan Potassium 100 MG Oral Tablet (Cozaar)Indications :HTN, goal below 140/90 Take 1 Tablet by mouth in the morning. 90 Tablet 3 3 Active amLODIPine Besylate 2.5 MG Oral Tablet (Norvasc)Indication s:HTN, goal below 140/90 Take 1 Tablet by mouth in the morning. 90 Tablet 3 3 Active Metoprolol Succinate ER 50 MG Oral Tablet Extended Release 24 Hour (toPROL XL)Indications:HTN, goal below 140/90 Take 1 Tablet by mouth in the morning. 90 Tablet 3 3 Active Pravastatin Sodium 40 MG Oral Tablet (Pravachol)Indicati ons:Type 2 diabetes mellitus without complication, without long-term current use of insulin (HCC),Dyslipidemia Take 1 Tablet by mouth in the morning. 90 Tablet 3 3 Active Letrozole 2.5 MG Oral Tablet (Femara)Indications :Infiltrating ductal carcinoma of left breast (HCC),CLL (chronic lymphocytic leukemia) (HCC) Take 1 Tablet by mouth in the morning. 90 Tablet 5 3 Active Multivitamin Adults 50+ Oral Tablet Take 1 Tablet by mouth daily. 0 Active metFORMIN HCl ER 500 MG Oral Tablet Extended Release 24 Hour (Glucophage XR)Indications:Type 2 diabetes mellitus without complication, without long-term current use of insulin (HCC) Take 1 Tablet by mouth 2 times a day with morning and evening meals. Take in addition to medication in pill pack until completed. 14 Tablet 0 3 Active metFORMIN HCl ER 500 MG Oral Tablet Extended Release 24 Hour (Glucophage XR)Indications:Type 2 diabetes mellitus with hemoglobin A1c goal of less than 8.0% ([facility]),Type 2 diabetes mellitus without complication, without long-term current use of insulin ([facility]) Take 2 Tablets by mouth 2 times a day with morning and evening meals. 360 Tablet 3 3 Active Sodium Fluoride 1.1 % Dental Cream [place] onto teeth every night at bedtime. 0 Active Nystatin-Triamcinol one [id number] UNIT/GM-% External Cream (Mycolog) APPLY TOPICALLY 4 TIMES DAILY FOR RASH UNDER BREAST 0 3 Active SSD 1 % External Cream APPLY 1.5MM THICKNESS TWICE DAILY FOR RADIATIONS DERMATITIS 0 3 Active Mirtazapine 15 MG Oral Tablet (Remeron)Indication s:Adjustment disorder with depressed mood Take 1 Tablet by mouth at bedtime. 30 Tablet 5 3 Active Tamoxifen Citrate 20 MG Oral TabletIndications:I nfiltrating ductal carcinoma of left breast ([facility]),CLL (chronic lymphocytic leukemia) ([facility]) Take 1 Tablet by mouth in the morning. 90 Tablet 5 3 Active OneTouch Keo Moore 33GIndications:Type 2 diabetes mellitus with hemoglobin A1c goal of less than 8.0% ([facility]) Test Blood sugar two to three times per day. E11.9 300 Each 3 3 Active Dulaglutide 1.5 MG/0.5ML Subcutaneous Solution Pen-injector (Trulicity) Inject 1.5 mg under the skin once a week. 2 mL 5 3 Active Repaglinide 0.5 MG Oral Tablet (Prandin)Indication s:Type 2 diabetes mellitus with hemoglobin A1c goal of less than 8.0% ([facility]),Type 2 diabetes mellitus without complication, without long-term current use of insulin ([facility]) Take 1 Tablet by mouth daily before breakfast. 90 Tablet 3 3 Active OneTouch Verio In Vitro Strip (Glucose Blood)Indications:T ype 2 diabetes mellitus with hemoglobin A1c goal of less than 8.0% ([facility]) Test Blood sugar two to three times per day. E11.9 300 Strip 3 3 Active OneTouch Verio In Vitro Strip (Glucose Blood)Indications:T ype 2 diabetes mellitus with hemoglobin A1c goal of less than 8.0% ([facility]) Test Blood sugar two to three times per day. E11.9 3 Strip 3 3 03/13/20 23 Discontinued Hospital, Clinic, or Other Facility Administered Medication Ordered Dose Route Frequency Start Date End Date Status vitamin b-12 (Cyanocobalamin) inj 1,000 mcgIndications:B12 deficiency 1000 mcg IM [id number] 11/24/2022 10/26/2023 Active documented as of this encounter (statuses as of 03/13/2023) Active Problems Problem Noted Date Diagnosed Date [...] sinus infections 05/25/2016 Overview: 05/23>Saw ENT in [place]; [place] 2 yrs ago- moved [place] -02/19--zpak,pred 03/22, pred 04/21;doxy 05/23--not on nasacort daily-resume and + claritin Preoperative general physical examination 2016 Overview: 07/21-l-m risk--0.3/-1.7--rpt 3 yrs Type 2 diabetes mellitus wit hout complication, without long-term current use of insulin 04/10/2016 HTN, goal below 140/90 04/10/2016 Dyslipidemia 04/10/2016 Acquired hypothyroidism 04/10/2016 documented as of this encounter (statuses as of 03/13/2023) Resolved Problems Problem Noted Date Diagnosed Date [...] csope-- 10/05/14- nl, gr 1 IH> At [place]--rpt 10 yrs documented as of this encounter (statuses as of 03/13/2023) Immunizations Name Administration Dates Next Due COVID-19 [...] encounter Miscellaneous Notes * Telephone Encounter - Dorcas Silva RPh - 03/13/2023 10:22 AM ESTSigned Prescriptions: Disp Refills OneTouch Verio In Vitro Strip (Glucose Blo*[address] St*3 Sig: Test Blood sugar two to three times per day. E11.9Authorizing Provider: KATIE VICTORIA User: DORCAS HENSLEY V * Telephone Encounter - Dorcas Silva RPh - 03/13/2023 10:19 AM EST Did you pend patient's preferred pharmacy and medication before forwarding?no Pharmacy: [facility] [address] [facility] Pending Prescriptions: Disp Refills OneTouch Verio In Vitro Strip (Glucose Bl*[address] St*3 Sig: Test Blood sugar two to three times per day. E11.9 Last Visit: 02/12/2023 (in office), 08/27/2019 (telemedicine) Next Visit: 03/19/2023 If no future appointments scheduled, and last appointment is greater than a year ago, please schedule patient for a follow-up appointment Last date the medication was ordered: 12/18/2022 Is this request for a controlled substance?No Urine Drug Screen:No results found for this or any previous visit. Patient Phone Numbers Labs: Lab Results Component Value Date/Time CREAT 0.9 12/13/2022 10:41 AM CREAT 0.8 03/02/2020 11:20 AM POTASSIUM 4.9 12/13/2022 10:41 AM POTASSIUM 4.7 03/02/2020 11:20 AM TSH 2.08 02/09/2022 10:53 AM TSH 2.13 08/20/2019 09:24 AM LDLCALC UNINTERPRETABLE RESULT 10/17/2018 10:16 AM LDLDIRECT 61 08/09/2021 08:28 AM LDLDIRECT 63 10/17/2018 10:16 AM ALT 32 12/13/2022 10:41 AM ALT 29 03/02/2020 11:20 AM HGBA1C 9.2 (H) 02/12/2023 10:15 AM HGBA1C 7.1 (H) 11/25/2019 09:24 AM Dorcas Hensley RPh, CHICHIP, CDE Clinical Pharmacist Medication Therapy [facility] 03/13/2023, 10:19 AM documented in this encounter Plan of Treatment Upcoming Encounters Date Type Department Care Team (Late st Contact Info) Description 03/14/2023 1:40 PM EST Laboratory Laboratory, [facility] [address] [place] [phone] Petar Boateng [address] [place] [address] 03/14/2023 2:20 PM EST Office Visit Family Practice [facility] [address] [place] [address] Katie Victoria DO [address] [place] [address] 03/19/2023 3:30 PM EST Office Visit Pharmacy, [facility] [address] [place] [address] Pharmacist2, [facility] [address] [place] [address] 03/21/2023 2:30 PM EST Office Visit Hematology/Oncology [facility] [address] [place] [address] Macey Cruz MD [address] [place] [address] 03/27/2023 11:45 AM EST Office Visit Cardiology, [facility] [address] [place] [address] Kimmy L[facility]pez, [address] [facility] [place] [address] 05/30/2023 11:00 AM EST Imaging Radiology [facility], [place] [address] [facility] [place] [address] 06/04/2023 2:30 PM EST Nutrition Services Nutrition, [facility] [address] [facility] [place] [address] Monica Perry, RDN [address] [facility] [place] [address] 06/13/2023 10:30 AM EST Office Visit General Surgery, [facility] [address] [place] [address] Myke Pulliam MD [address] [place] [address] 06/20/2023 11:00 AM EST Immunization/Injecti on Hematology/Oncology Treatment, [place] [address] [place] [address] Nurse, Med [address] [place] [address] 09/25/2023 9:30 AM EDT Cardiac Studies Cardiology, [facility] [address] [facility] [place] [address] [place], [facility] [address] [place] [address] Health Maintenance Due Date Last Done Comments [...] D LEVEL ONCE IN A LIFETIME-USE SMARTSET# [id number] Completed 11/14/2022 GARDASIL-HPV IMMUNIZATION SERIES Aged Out No longer eligible based on patient's age to complete this topic MENINGOCOCCAL (MENACTRA/MENVEO) Aged Out No longer eligible based on patient's age to complete this topic documented as of this encounter Medical Devices Implanted Type Area Pnp Device Identifier Shelf Expiration Date Model / Serial / Lot Lens Intraoc 19.0 - [id number] - [id number] Implanted:Qty: 1 on 12/13/2021 by Mitchell Guzman MD at OR [facility] Left: Eye [employer] 06/06/2026 [id number] / [id number] / [id number] Lens Intraoc 19.0 - [id number] - [id number] Implanted:Qty: 1 on 12/27/2021 by Mitchell Guzman MD at OR [facility] Right: Eye [employer] 06/06/2026 [id number] / [id number] / [id number] documented as of this encounter Visit Diagnoses Diagnosis Type 2 diabetes mellitus with hemoglobin A1c goal of less than 8.0% ([facility]) documented in this encounter Advance Directives Latest Code Status on File Code Status Date Activated Date Inactivated Comments No Code 12/27/2021 6:34 AM 12/27/2021 1:09 PM This order reflects the patients wishes and were consensually agreed upon. Question Answer Comments Discussion of Advance Directives occurred with: Patient Does the patient have a Living Will? No Does the patient have Health Care Power of Child Therapist? No Code Status History Code Status Date Activated Date Inactivated Comments No Code 12/13/2021 6:43 AM 12/13/2021 1:23 PM This or tim reflects the patients wishes and were consensually agreed upon. Question Answer Comments Discussion of Advance Directives occurred with: Patient Does the patient have a Living Will? No Does the patient have Health Care Power of Child Therapist? No Care Teams Boot Repairer Relationship Specialty Start Date End Date Katie Victoria DO [address] [place] [address] PCP - General Family Medicine 07/19/17 documented as of this encounter
--- OUTSIDE RECORDS SUMMARY | 2023-04-09 09:45 | External Medical Summary ---
Author Name Unknown Address Unknown Organization [id number]:[facility] - [facility] [address] [facility] [address] Laboratory Report Ordering Provider Test Date Status PAWEL CHACONJAVIKAELAARIANA 02/13/2023 11:31:31 Final <10,000 colonies/ml normal f jostin, one colony type Observation Date Value Abnormality Reference (Units ) Status Bacteria identified in Specimen by Culture 02/13/2023 11:31:31 [id number]^KLEBSIEL LA AEROGENES Abnormal Final 10,000 to 100,000 colonies/m L Klebsiella aerogenes
This bacterial species is known to produce a chromosomal AmpC inducible beta lactamase. Penicillin or cephalosporin use, with the exception of cefepime, may result in resistance. Bacteria identified in Specimen by Culture 02/13/2023 11:31:31 [id number]^KLEBSIELLA PNEUMONIAE Abnormal Final 10,000 to 100,000 colonies/m L Klebsiella pneumoniae Performing Location [facility] - [facility] [address] [facility] [address] [facility] [address] Ordering Provider Test Date Status PAWEL CHACONMITRA 02/13/2023 11:31:31 Final Observation Date Value Abnormality Reference (Units ) Status Cefepime susceptibility 02/13/2023 11:31:31 <=1 Susceptible Final cefOXitin [Susceptibility] 02/13/2023 11:31:31 32 Resistant Final Ceftriaxone suceptibility 02/13/2023 11:31:31 <=1 Susceptible Final Ciprofloxacin 02/13/2023 11:31:31 <=0.25 Susceptible Final Due to serious side effects, the FDA has advised against using Ciprofloxacin to treat uncomplicated UTIs and respiratory tract infections unless there are no alternative treatment options. Gentamicin susceptibility 02/13/2023 11:31:31 <=1 Susc eptible Final Nitrofurantoin susceptibility 02/13/2023 11:31:31 128 Resistant Final Piperacillin + Tazobactamsusceptibility 02/13/2023 11:31:31 <=4 Susceptible Final TMP-SMZ susceptibility 02/13/2023 11:31:31 <=20 Suscept ible Final Performing Location [facility] - [address] [place] [address] Ordering Provider Test Date Status LEW CHACON 02/13/2023 11:31:31 Final Observation Date Value Abnormality Reference (Units ) Status Ampicillin + Sulbactam 02/13/2023 11:31:31 8 Susceptible Final Cefazolin 02/13/2023 11:31:31 <=4 Susceptible Final Cefepime susceptibility 02/13/2023 11:31:31 <=1 Susceptible Final Ceftriaxone suceptibility 02/13/2023 11:31:31 <=1 Susceptible Final Ciprofloxacin 02/13/2023 11:31:31 <=0.25 Susceptible Final Due to serious side effects, the FDA has advised against using Ciprofloxacin to treat uncomplicated UTIs and respiratory tract infections unless there are no alternative treatment options. Gentamicin susceptibility 02/13/2023 11:31:31 <=1 Susc eptible Final Nitrofurantoin susceptibility 02/13/2023 11:31:31 128 Resistant Final Piperacillin + Tazobactamsusceptibility 02/13/2023 11:31:31 <=4 Susceptible Final TMP-SMZ susceptibility 02/13/2023 11:31:31 <=20 Suscept ible Final Test: Culture, Urine, Quanti tative
Specimen Source: Urine, Clean Catch
Specimen Type: Urine
Specimen Date: 02/13/2023 11:31 AM
Result Date: 02/16/2023 3:13 PM
Result Status: Final result
Abnormal: Yes
Resulting Lab: [facility]
[address]
[place] [address]

CULTURE

10,000 to 100,000 colonies/mL Klebsiella aerogenes (Abnormal)

This bacterial species is known to produce a chromosomal AmpC inducible
beta lactamase. Penicillin or cephalosporin use, with the exception of
cefepime, may result in resistance.

10,000 to 100,000 colonies/mL Klebsiella pneumoniae (Abnormal)

<10,000 colonies/ml normal kenneth, one colony type

SUSCEPTIBILITY

Klebsiella aerogenes Klebsiella pneumoniae
METHOD MICROBROTH DILUTIONS MICROBROTH DILUTIONS

AMPICILLIN/SULBACTAM 8 Susceptible
CEFAZOLIN <=4 Susceptible
CEFEPIME <=1 Susceptible <=1 Susceptible
CEFOXITIN 32 Resistant
CEFTRIAXONE <=1 Susceptible <=1 Susceptible
CIPROFLOXACIN <=0.25 Susceptible [1] <=0.25 Susceptible [2]
GENTAMICIN <=1 Susceptible <=1 Susceptible
NITROFURANTOIN 128 Resistant 128 Resistant
PIPERACILLIN TAZOBACTAM <=4 Susceptible <=4 Susceptible
TRIMETH/SULFAMETHOXAZOLE <=20 Susceptible <=20 Susceptible

[1] Due to serious side effects, the FDA has advised against using
Ciprofloxacin to treat uncomplicated UTIs and respiratory tract infections
unless there are no alternative treatment options.

[2] Due to serious side effects, the FDA has advised against using
Ciprofloxacin to treat uncomplicated UTIs and respiratory tract infections
unless there are no alternative treatment options.

null Performing Location [facility] - [address] [place] [address] [place]. [facility] [address]
--- OUTSIDE RECORDS SUMMARY | 2023-04-09 09:45 | External Medical Summary ---
Author Name Unknown Address Unknown Organization [id number]:[facility] [place] [address] [place] [address] Laboratory Report Ordering Provider Test Date Status NAN MALIN 03/14/2023 13:47:36 Final Observation Date Value Abnormality Reference (Units ) Status SYNC LEUKOCYTES IN BLOOD BY AUTOMATED COUNT 03/14/2023 13:47:36 10.55 4.00-10.80 (K/uL) Final Segs 03/14/2023 13:47:36 63.9 40.0-75.0 (%) Final Lymphs % 03/14/2023 13:47:36 26.5 18.0-42.0 (%) Final Monos 03/14/2023 13:47:36 7.1 1.0-11.0 (%) Final Eosinophils 03/14/2023 13:47:36 2.4 0.0-6.0 (%) Final Basos 03/14/2023 13:47:36 0.1 0.0-2.0 (%) Final Absolute Segs 03/14/2023 13:47:36 6.74 1.80-7.70 (K/uL) Final Lymphs, absolute 03/14/2023 13:47:36 2.80 1.00-4.80 (K/ul) Final Monos, Abs 03/14/2023 13:47:36 0.75 0.00-1.10 (K/uL) Final Eos, Abs 03/14/2023 13:47:36 0.25 0.00-0.70 (K/uL) Final Basos, Abs 03/14/2023 13:47:36 0.01 0.00-0.20 (K/uL) Final Performing Location [facility] [place] [address] - [address] [place] [address]
--- OUTSIDE RECORDS SUMMARY | 2023-04-09 09:45 | External Medical Summary | Summary of Care ---
Author Name Unknown Organization [facility] Address [address] [place] [address] Phone [phone] Care Team Providers Care Metal Leaf Layer Name Role Phone Annabella Victoria DO Primary Care Provider [phone] Reason for Visit * Reason Comments Follow Up s/p a left partial m astectomy and sentinel lymph node resection on 07/28/22. Encounter Details Date Type Department Care Team Description 02/15/2023 [facility] [place] [address] Myke Pulliam MD [address] [facility] [place] [address] History of breast cancer*; Abnormal mammogram Allergies Active Allergy Reactions Severity Noted Date Comments Pollen Other (Please comment) 03/22/2016 Itchy, inflamed eyes Penicillins Rash 03/22/2016 Sulfa Antibiotics Nausea/vomiting 03/22/2016 documented as of this encounter (statuses as of 02/15/2023) Medications Medication Sig Dispensed Refills Start Date [...] A1c goal of less than 8.0% ([facility]) Inject under the skin 1.5 mg once a week . Do not start before April 03, 2022. 6 mL 3 04/03/2022 Active OneTouch Verio Reflect w/Device KitIndications:Type 2 diabetes mellitus with hemoglobin A1c goal of less than 8.0% ([facility]) Use as directed. Test [...] without long-term current use of insulin ([facility]),Dyslipidemia Take 1 Tablet by mouth in the morning. 90 Tablet 3 09/06/2022 Active Letrozole 2.5 MG Oral Tablet (Femara)Indications: Infiltrating ductal carcinoma of left breast (HCC),CLL (chronic lymphocytic leukemia) ([facility]) Take 1 Tablet by mouth in the morning. 90 Tablet 5 09/12/2022 Active Multivitamin Adults 50+ Oral Tablet Take 1 Tablet by mouth daily. 0 Active metFORMIN HCl ER 500 MG Oral Tablet Extended Release 24 Hour (Glucophage XR)Indications:Type 2 diabetes mellitus without complication, without long-term current use of insulin ([facility]) Take 1 Tablet by mouth 2 times a day with morning and evening meals. Take in addition to medication in pill pack until completed. 14 Tablet 0 10/09/2022 Active metFORMIN HCl ER 500 MG Oral Tablet Extended Release 24 Hour (Glucophage XR)Indications:Type 2 diabetes mellitus with hemoglobin A1c goal of less than 8.0% ([facility]),Type 2 diabetes mellitus without complication, without long-term current use of insulin ([facility]) Take 2 Tablets by mouth 2 times a day with morning and evening meals. 360 Tablet 3 10/09/2022 Active Sodium Fluoride 1.1 % Dental Cream [place] onto teeth every night at bedtime. 0 Active Nystatin-Triamcinolo ne 978165-3.1 UNIT/GM-% External Cream (Mycolog) APPLY TOPICALLY 4 TIMES DAILY FOR RASH UNDER BREAST 0 10/30/2022 Active SSD 1 % External Cream APPLY 1.5MM THICKNESS TWICE DAILY FOR RADIATIONS DERMATITIS 0 11/13/2022 Active Mirtazapine 15 MG Oral Tablet (Remeron)Indications :Adjustment disorder with depressed mood Take 1 Tablet by mouth at bedtime. 30 Tablet 5 11/24/2022 Active Tamoxifen Citrate 20 MG Oral TabletIndications:In filtrating ductal carcinoma of left breast ([facility]),CLL (chronic lymphocytic leukemia) ([facility]) Take 1 Tablet by mouth in the morning. 90 Tablet 5 12/13/2022 Active OneTouch Delica Lancets 33GIndications:Type 2 diabetes mellitus with hemoglobin A1c goal of less than 8.0% ([facility]) Test Blood sugar two to three times per day. E11.9 300 Each 3 12/18/2022 Active OneTouch Verio In Vitro Strip (Glucose Blood)Indications:Ty pe 2 diabetes mellitus with hemoglobin A1c goal of less than 8.0% ([facility]) Test Blood sugar two to three times per day. E11.9 3 Strip 3 12/18/2022 Active Dulaglutide 1.5 MG/0.5ML Subcutaneous Solution Pen-injector (Signicast) Inject 1.5 mg under the skin once a week. 2 mL 5 12/22/2022 Active Repaglinide 0.5 MG Oral Tablet (Prandin)Indications :Type 2 diabetes mellitus with hemoglobin A1c goal of less than 8.0% ([facility]),Type 2 diabetes mellitus without complication, without long-term current use of insulin ([facility]) Take 1 Tablet by mouth daily before breakfast. 90 Tablet 3 02/12/2023 Active Ciprofloxacin HCl 500 MG Oral Tablet (Cipro) Take 1 Tablet by mouth in the morning and 1 Tablet before bedtime. Do all this for 7 days. 14 Tablet 0 02/13/2023 02/20/2023 Active Hospital, Clinic, or Other Facility Administered Medication Ordered Dose Route Frequency Start Date End Date Status vitamin b-12 (Cyanocobalamin) inj 1,000 mcgIndications:B12 deficiency 1000 mcg IM [id number] 11/24/2022 10/26/2023 Active documented as of this encounter (statuses as of 02/15/2023) Active Problems Problem Noted Date Osteoporosis with [...] sinus infections 05/25/2016 Overview: 05/23>Saw ENT in [place]; CT 2 yrs ago- moved [place] -02/19--zpak,pred 03/22, pred 04/21;doxy 05/23--not on nasacort daily-resume and + claritin Preoperative general physical examinatio n 05/25/2016 Overview: 07/21-l-m risk--0.3/-1.7--rpt 3 yrs Type 2 diabetes mellitus wit hout complication, without long-term current use of insulin 04/10/2016 HTN, goal below 140/90 04/10/2016 Dyslipidemia 04/10/2016 Acquired hypothyroidism 04/10/2016 documented as of this encounter (statuses as of 02/15/2023) Resolved Problems Problem Noted Date Resolved Date Mammographic microcalcification 10/19/2016 08/13/2018 Overview: 12/21--scattered fibroglandular densities (25% - 50% fibroglandular), dystrophic ca+-rpt 1 yr Closed fracture of proximal end of right humerus with routine healing 10/19/2016 07/23/2018 Overview: 07/25/16 Encounter for screening mammogram for breast can cer 05/25/2016 07/23/2018 Overview: 05/2015 [place] Screen for colon cancer 05/25/2016 07/24/19 Overview: csope-- 10/05/14- nl, gr 1 IH> At [place]--rpt 10 yrs documented as of this encounter (statuses as of 02/15/2023) Immunizations Name Administration Dates Next Due COVID-19 [...] - Inhaled Oxygen Concentration - - Weight 60.7 kg (133 lb 12.8 oz) 023 11:42 AM EDT Height - - Body Mass Index 27.02 11/29/2022 8:33 AM EDT documented in this encounter Progress Notes * Myke Pulliam MD - 02/15/2023 12:56 PM EDT [facility] NOTES SUBJECTIVE: [place] [...] wound drainage and has no wound erythema. She returns following the ultrasound of the small nodule found on physical exam at the last visit. The ultrasound demonstrated a small amount of scar tissue/seroma. Benign finding. OBJECTIVE: Weight 60.7 kg (133 lb 12.8 oz), not currently . NAD A&Ox3 IMPRESSION: Excellent postoperative course without complications following left partial mastectomy and sentinel lymph node resection PLAN: Ultrasound was benign. She will follow-up in May after her yearly diagnostic mammogram. She will call with any new or concerning symptoms in the meantime. Myke Pulliam MD 02/15/23 documented in this encounter Nursing Notes * DAVID Holder - 02/15/2023 11:43 AM EDT Chief Complaint Patient presents with Follow Up s/p a left partial mastectomy and sentinel lymph node resection on 07/28/22. Verified patient. No pain. No concerns today. documented in this encounter Plan of Treatment Upcoming Encounters Date Type Specialty Care Team Description 03/02/2023 Nutrition Services Nutrition Services Monica Perry RDN [address] [place] [address] 03/14/2023 Laboratory Laboratory [facility] Jen [address] [place] [address] 03/14/2023 Office Visit Family Medicine Annabella Victoria DO [address] [place] [address] 03/21/2023 Office Visit Hematology Oncology Macey Cruz MD [address] [place] [address] 03/21/2023 Office Visit Pharmacy Pharmacist2, [facility] [address] [facility] [address] 03/27/2023 Office Visit Cardiology Kimmy López, [address] [place] [address] 05/30/2023 Imaging Radiology 06/13/2023 Office Visit General Surgery Myke Pulliam MD [address] [place] [address] 06/20/2023 Immunization/Injection Hematology Oncolog y Nurse, [facility] [address] [facility] [address] 09/25/2023 Cardiac Studies Cardiology Dania Hussein [address] [place] [address] Scheduled Orders Name Type Priority Associated Diagnoses Orde r Schedule MAMMOGRAM DIAGNOSTIC RIGHT Medical Imaging Routine History of breast cancer Abnormal mammogram Expected: 05/18/2023, Expires: 03/18/2024 Health Maintenance Due Date Last Done Comments [...] D LEVEL ONCE IN A LIFETIME-USE SMARTSET# [id number] Completed 11/14/2022 GARDASIL-HPV IMMUNIZATION SERIES Aged Out No longer eligible based on patient's age to complete this topic Hepatitis B Aged Out No longer eligi ble based on patient's age to complete this topic MENINGOCOCCAL (MENACTRA/MENVEO) Aged Out No longer eligible based on patient's age to complete this topic documented as of this encounter Medical Devices Implanted Type Area Hand Model Device Identifier Shelf Expiration Date Model / Serial / Lot Lens Intraoc 19.0 - [id number] - [id number] Implanted:Qty: 1 on 12/13/2021 by Mitchell Guzman MD at OR [facility] Left: Eye [employer] 06/06/2026 [id number] / [id number] / [id number] Lens Intraoc 19.0 - [id number] - [id number] Implanted:Qty: 1 on 12/27/2021 by Mitchell Guzman MD at OR [facility] Right: Eye [employer] 06/06/2026 [id number] / [id number] / [id number] documented as of this encounter Visit Diagnoses Diagnosis History of breast cancer- Primary Personal history of malignant neoplasm of breast Abnormal mammogram Abnormal mammogram, unspecified documented in this encounter Advance Directives Latest Code Status on File Code Status Date Activated Date Inactivated Comments No Code 12/27/2021 6:34 AM 12/27/2021 1:09 PM This order reflects the patients wishes and were consensually agreed upon. Question Answer Comments Discussion of Advance Directives occurred with: Patient Does the patient have a Living Will? No Does the patient have Health Care Power of Organic Gardening Teacher? No Code Status History Code Status Date Activated Date Inactivated Comments No Code 12/13/2021 6:43 AM 12/13/2021 1:23 PM This or tim reflects the patients wishes and were consensually agreed upon. Question Answer Comments Discussion of Advance Directives occurred with: Patient Does the patient have a Living Will? No Does the patient have Health Care Power of Organic Gardening Teacher? No Care Teams Metal Leaf Layer Relationship Specialty Start Date End Date Annabella Victoria, DO [address] [place] [address] PCP - General Family Medicine 07/19/17 documented as of this encounter
--- OUTSIDE RECORDS SUMMARY | 2023-04-09 09:46 | External Medical Summary | Summary of Care ---
Author Name Unknown Organization [facility] Address [address] [place] [address] Phone [phone] Care Team Providers Care Raisin Washer Name Role Phone Annabella Victoria DO Primary Care Provider [phone] Reason for Visit * Reason Onset Date Comments Test Results Lab 10/23/2022 Encounter Details Date Type Department Care Team Description 10/23/2022 Telephone Hematology/Oncology [facility] [place] [address] [facility] [place] [id number] Macey Cheatham MD [address] [place] [id number] Test Results Lab Allergies Active Allergy Reactions Severity Noted Date Comments Pollen Other (Please comment) 03/22/2016 Itchy, inflamed eyes Penicillins Rash 03/22/2016 Sulfa Antibiotics Nausea/vomiting 03/22/2016 documented as of this encounter (statuses as of 12/18/2022) Medications Medication Sig Dispensed Refills Start Date End Date Status Omeprazole Magnesium 20 MG Oral Tablet Delayed Release (PriLOSEC OTC) Take 1 Tablet by mouth as needed for Heartburn. 0 Active ProAir HFA 108 (90 Base) MCG/ACT Inhalation Aerosol Solution Inhale 2 Puffs by mouth every 4 hours as needed for Wheezing. 18 g 1 1 Active Trulicity 1.5 MG/0.5ML Subcutaneous Solution Pen-injector (Dulaglutide)Indic ations:Type 2 diabetes mellitus with hemoglobin A1c goal of less than 8.0% ([facility]) Inject under the skin 1.5 mg once a week . Do not start before April 03, 2022. 6 mL 3 2 Active OneTouch Verio Reflect w/Device KitIndications:Typ e 2 diabetes mellitus with hemoglobin A1c goal of less than 8.0% ([facility]) Use as directed. Test Blood sugar one to two times per day. E11.9 1 Kit 0 3 Active Macular Health Formula Oral Capsule Take by mouth. 0 Active Levothyroxine Sodium 50 MCG Oral Tablet (Levoxyl)Indicatio ns:Acquired hypothyroidism (at least 30 min prior to breakfast or other meds) 90 Tablet 3 3 Active Aspirin 81 MG Oral Tablet Chewable Take 1 Tablet by mouth in the morning. with food.. 90 Tablet 3 3 Active Losartan Potassium 100 MG Oral Tablet (Cozaar)Indication s:HTN, goal below 140/90 Take 1 Tablet by mouth in the morning. 90 Tablet 3 3 Active amLODIPine Besylate 2.5 MG Oral Tablet (Norvasc)Indicatio ns:HTN, goal below 140/90 Take 1 Tablet by mouth in the morning. 90 Tablet 3 3 Active Metoprolol Succinate ER 50 MG Oral Tablet Extended Release 24 Hour (toPROL XL)Indications:HTN , goal below 140/90 Take 1 Tablet by mouth in the morning. 90 Tablet 3 3 Active Pravastatin Sodium 40 MG Oral Tablet (Pravachol)Indicat ions:Type 2 diabetes mellitus without complication, without long-term current use of insulin ([facility]),Dyslipidemia Take 1 Tablet by mouth in the morning. 90 Tablet 3 3 Active Letrozole 2.5 MG Oral Tablet (Femara)Indication s:Infiltrating ductal carcinoma of left breast (HCC),CLL (chronic lymphocytic leukemia) ([facility]) Take 1 Tablet by mouth in the morning. 90 Tablet 5 3 Active Multivitamin Adults 50+ Oral Tablet Take 1 Tablet by mouth daily. 0 Active metFORMIN HCl ER 500 MG Oral Tablet Extended Release 24 Hour (Glucophage XR)Indications:Typ e 2 diabetes mellitus without complication, without long-term current use of insulin ([facility]) Take 1 Tablet by mouth 2 times a day with morning and evening meals. Take in addition to medication in pill pack until completed. 14 Tablet 0 3 Active metFORMIN HCl ER 500 MG Oral Tablet Extended Release 24 Hour (Glucophage XR)Indications:Typ e 2 diabetes mellitus with hemoglobin A1c goal of less than 8.0% (HCC),Type 2 diabetes mellitus without complication, without long-term current use of insulin (HCC) Take 2 Tablets by mouth 2 times a day with morning and evening meals. 360 Tablet 3 3 Active OneTouch Verio In Vitro Strip (Glucose Blood)Indications: Type 2 diabetes mellitus with hemoglobin A1c goal of less than 8.0% (HCC) Test Blood sugar one to two times per day. E11.9 200 Strip 3 3 11/02/19 23 Discontinued(Re fill) OneTouch Delica Lancets 33GIndications:Typ e 2 diabetes mellitus with hemoglobin A1c goal of less than 8.0% (HCC) Test Blood sugar one to two times per day. E11.9 200 Each 3 3 12/19/19 23 Discontinued documented as of this encounter (statuses as of 12/18/2022) Active Problems Problem Noted Date Osteoporosis with [...] sinus infections 05/25/2016 Overview: 05/23>Saw ENT in [place]; CT 2 yrs ago- moved [place] -02/19--zpak,pred 03/22, pred 04/21;doxy 05/23--not on nasacort daily-resume and + claritin Preoperative general physical examinatio n 05/25/2016 Overview: 07/21-l-m risk--0.3/-1.7--rpt 3 yrs Type 2 diabetes mellitus wit hout complication, without long-term current use of insulin 04/10/2016 HTN, goal below 140/90 04/10/2016 Dyslipidemia 04/10/2016 Acquired hypothyroidism 04/10/2016 documented as of this encounter (statuses as of 12/18/2022) Resolved Problems Problem Noted Date Resolved Date Mammographic microcalcification 10/19/2016 08/13/2018 Overview: 12/21--scattered fibroglandular densities (25% - 50% fibroglandular), dystrophic ca+-rpt 1 yr Closed fracture of proximal end of right humerus with routine healing 10/19/2016 07/23/2018 Overview: 07/25/16 Encounter for screening mammogram for breast can cer 05/25/2016 07/23/2018 Overview: 05/2015 [place] Screen for colon cancer 05/25/2016 07/24/19 19 Overview: csope-- 10/05/14- nl, gr 1 IH> At [place]--rpt 10 yrs documented as of this encounter (statuses as of 12/18/2022) Immunizations Name Administration Dates Next Due COVID-19 mRNA, LNP-s, No Pre serve, 2-Dose Series (Moderna) 07/06/2020,06/02/2020 Covid-19 Mrna, Lnp-s, No Preserve, Booster (Mode rna) 10/28/2021,03/02/2021 Covid-19, Mrna, Lnp-s, Pf, B ivalent, 30 Mcg, IM, 12 yrs and above ([employer]) 02/03/2022 Pneumococcal Conjugate Vacc, 13 Valent (Prevnar) [...] encounter Miscellaneous Notes * Telephone Encounter - Paulette New RN - 12/18/2022 10:42 AM EDT Patient stopped into office, asked if she could be scheduled for prolia- states that Dr Cheatham told her she was ok to be scheduled for this if her labs looked ok. Per Dr Cheatham's office note 12/13/22: "DEXA bone density scan shows risk of fracture is high. Because of the risk of fracture I will change the treatment to tamoxifen. She will also receive Prolia for osteoporosis. She has issues with tooth and waiting to be seen by dentist. She has appointment for consultation in 02/2023. I will proceed with 1st dose of Prolia." Scheduling: please schedule patient for 503 injection appt "prolia" (Anthony). Thanks! * Telephone Encounter - Tia Salmeron LPN - 12/05/2022 10:23 AM EDT Per request, faxed dental clearance letter Dr. Cheatham signed to Dr Blum's office, patient's dentist. [phone] * Telephone Encounter - Tia Salmeron LPN - 11/28/2022 1:[address] Cheatham signed clearance letter, faxed to Dr. Bullard's office. * Telephone Encounter - Tia Salmeron LPN - 11/28/2022 10:[address] Cheatham states "Continue hold Prolia " Called Dr. Bullard's office again, received fax number to send medical clearance from hem/onc perspective, . Completed medical clearance letter. Pending provider signature * Telephone Encounter - Tia Salmeron LPN - 11/28/2022 8:[address] Cheatham: Patient needs 3 additional teeth extracted, 4 total. Sera is going to an oral surgeon, Dr. Philippe. Please advise on Prolia. Called Dr. Philippe's office with number provided by Deedee and requested fax number and to see if adate was scheduled. Will need to provide clearance letter for Dr. Cheatham to sign. * Telephone Encounter - Tia Salmeron LPN - 11/27/2022 1:27 PM EDT Spoke to Sera who handed the phone to daughter Deedee. Deedee gave information of Sera's new dentist in myG message. Notified Deedee that prolia wouldnot be started until all dental procedures are complete and we would need dental clearance from Dee Dee Blum DMD before starting prolia. Notified Deedee that we could notify Dr. Blum's office as well. Deedee verbalizes understand and will let office know when dental work is complete as well. Sera will need tooth pulled and it is not scheduled yet the dentist office. The new dentist is Dee Dee Blum DMD, [place] ([address] [place] [address]). Her phone number is [phone] and her fax number is [phone]. Called Dr[address] Blum's office, spoke to Salome, to notify about dental clearance needed after procedures and future prolia injection. She verbalizes understanding. Dr. Anthony DUKES: Patient coming to see you on 12/13/22, needs dental procedure to pull tooth, procedurenot yet scheduled, has not started prolia yet. * Telephone Encounter - NICKO Guillen - 11/27/2022 12:08 PM EDT Would like Tia to call back. Call back: [phone] * Telephone Encounter - Tia Salmeron LPN - 11/15/2022 10:48 AM EDT Gave information regarding prolia to Dr. Matheus Rajput' office so office can be aware and advise ondental clearance. Gave phone number and fax number to our office. Patient will need to wait to start prolia until early December. * Telephone Encounter - NICKO Corral - 11/15/2022 10:39 AM EDT Pt calling back; name of dentist is Dr. Matheus Rajput in [place]; office phone number is [phone] * Telephone Encounter - Tia Salmeron LPN - 11/15/2022 9:39 AM EDT Left message on daughter's phone since she has not read [employer] message. Need name of dentist to obtaindental clearance for prolia. * Telephone Encounter - Tia Salmeron LPN - 11/10/2022 11:13 AM EDT Patient's daughter read myG message * Telephone Encounter - Tia Salmeron LPN - 11/09/2022 10:46 AM EDT My [employer] message has not been read, attempted to call patient's daughter regarding Dr. cheatham's response. The VM was full and could not leave message. * Addendum Note - Tia Salmeron LPN - 11/06/2022 1:47 PM EDTAddended by: TIA SALMERON on: 11/06/2022 01:47 PM Modules accepted: Orders * Telephone Encounter - Tia Salmeron LPN - 11/06/2022 1:[address] Cheatham responds "We can request the labs. Hold the injection until she complete her dental workup " Placed order for [id number] lab CMP, phos and cbcd orders already placed. Sent patient and daughtr a myG message with Dr. Cheatham's response. * Telephone Encounter - Tia Salmeron LPN - 11/02/2022 3:[address] Cheatham: Patient would like to wait on prolia until after radiation, she also needs dental work. Patient's daughter wrote "I almost forgot. Her dental filling fell out 2 weeks ago. We contacted the shipping/receiving clerk's office to let them know as we were told not to schedule any dental work for 6 mo. She went to the dentist today and he replaced her filling in the office. She said there was minor drilling. I sent a portal message to both your office and her PCP's office asking her chart be updated as he prescribed her a prescription-strength toothpaste, SF 5000 Plus (due to her radiation treatments). There are 3 refills on the rx. We picked it up from the pharmacy on the way home from the dentist. Thanks. " * Telephone Encounter - Tia Salmeron LPN - 10/31/2022 10:09 AM EDT Left patient message to follow up about prolia injection. Also sent myG message. * Telephone Encounter - Tia Salmeron LPN - 10/27/2022 4:12 PM EDT Patient would like to review information and think about prolia prior. Auth is back, patient can be scheduled when agreeable. * Telephone Encounter - Tia Salmeron LPN - 10/23/2022 1:19 PM EDT Left message for patient x2. Also sent myG message to patient. * Telephone Encounter - Tia Salmeron LPN - 10/23/2022 8:44 AM EDT Order received for prolia 60mg, [place] created and routed to provider for signature. Lab orders entered for cmp., cbcd, phos prior to every injection. Left message for patient to call office regarding test results and prolia order, supplements. Patient needs dental work completed per previous TE, Would need to wait to start prolia after. ----- Message from Macey Cheatham MD sent at 10/23/2022 8:39 AM EDT ----- On DEXA bone density scan fracture risk is HIGH. She should take the vitamin-D and calcium supplement. Will repeat the bone density scan in 1 year. Will also start her on Prolia documented in this encounter Plan of Treatment Upcoming Encounters Date Type Specialty Care Team Description 01/05/2023 Office Visit Family Medicine Jacey Dunn CRNP [address] [place] [address] 02/01/2023 Office Visit General Surgery Myke Pulliam MD [address] [place] [address] 02/12/2023 Office Visit Pharmacy Pharmacist2, [facility] [address] [place] [address] 03/02/2023 Nutrition Services Nutrition Services Monica Perry RDN [address] [place] [address] 03/14/2023 Laboratory Laboratory [facility] [address] [place] [address] 03/14/2023 Office Visit Family Medicine Annabella Victoria DO [address] [place] [address] 03/21/2023 Office Visit Hematology Oncology Macey Cheatham MD [address] [place] [address] 03/27/2023 Office Visit Cardiology Kimmy López DO [address] [place] [id number] 09/25/2023 Cardiac Studies [facility]iology [facility] [address] [place] [address] Scheduled Orders Name Type Priority Associated Diagnoses Orde r Schedule COMPREHENSIVE METABOLIC PANEL Lab STAT Infiltrating ductal carcinoma of left breast (HCC) Osteoporosis with symptom management only Every 6 Months for 2 Occurrences starting 10/23/2022 until 10/24/2023 CBC WITH WBC DIFFERENTIAL Lab STAT Infiltrating ductal carcinoma of left breast (HCC) Osteoporosis with symptom management only Every 6 Months for 2 Occurrences starting 10/23/2022 until 10/24/2023 PHOSPHORUS Lab STAT Infiltrating ductal carcinoma of left breast (HCC) Osteoporosis with symptom management only 2 Occurrences starting 10/23/2022 until 10/24/2023, 1 completed VITAMIN B12 Lab Routine Infiltrating ductal carcinoma of left breast (HCC) CLL (chronic lymphocytic leukemia) (HCC) Expected: 11/20/2022, Expires: 11/07/2023 Health Maintenance Due Date Last Done Comments Albumin/Creatinine Ratio 05/10/2022 022, 09/27/2017, 07/04/2016 DIABETES-EYE EXAM 08/15/2022 08/15/2021, , 07/15/2019, Additional history exists *BISPHONATE OR OTHER ACCEPTABLE MEDICATION NEEDED FOR OSTEOPOROSIS (REFER TO SMARTSET #1146) 10/26/2022 Influenza Vaccine (FLU shot) (#1) 2023 02/16/2022, 02/04/2021, 02/13/2020, Additional history exists TSH 02/09/2023 02/09/2022, 10/06, 08/20/2019, Additional history exists HbA1c 02/27/2023 08/28/2022, 04/06, 12/08/2021, Additional history exists DIABETES-FOOT EXAM 09/07/2023 09/06/2022, 0 08/10/2021, 11/03/2020, Additional history exists Depression Screening, Annual for Pts 12 and Over 09/07/2023 09/06/2022 B-12 11/15/2023 11/14/2022, 04/0 09/2021, 11/02/2020, Additional history exists GFR 12/14/2023 12/13/2022, 12/2022, 02/09/2022, Additional history exists DXA Scan 10/18/2024 10/18/2022, 07/06, 02/19/2012 DTaP,Tdap,and Td Vaccines (2 - Td or Tdap) 05/26/2025 05/26/2015 Pneumococcal Vaccine: 65+ Years Completed 05/19/2014, 09/17/2012, 05/26/2002 Zoster Vaccines Completed 03/25/2019, 11/05, 02/01/2007 COVID-19 Vaccine Completed 02/03/2022, , 03/02/2021, Additional history exists VITAMIN D LEVEL ONCE IN A LIFETIME-USE SMARTSET# 09324 Completed 11/14/2022 GARDASIL-HPV IMMUNIZATION SERIES Aged Out No longer eligible based on patient's age to complete this topic Hepatitis B Aged Out No longer eligi ble based on patient's age to complete this topic MENINGOCOCCAL (MENACTRA/MENVEO) Aged Out No longer eligible based on patient's age to complete this topic documented as of this encounter Medical Devices Implanted Type Area Branch Lead Device Identifier Shelf Expiration Date Model / Serial / Lot Lens Intraoc 19.0 - [id number] - [id number] Implanted:Qty: 1 on 12/13/2021 by Mitchell Guzman MD at OR [facility] Left: Eye [employer] 06/06/2026 [id number] / [id number] / [id number] Lens Intraoc 19.0 - [id number] - [id number] Implanted:Qty: 1 on 12/27/2021 by Mitchell Guzman MD at OR [facility] Right: Eye [employer] 06/06/2026 [id number] / [id number] / [id number] documented as of this encounter Results * PHOSPHORUS (12/13/2022 10:41 AM EDT) Phosphorus 4.6 2.5 - 4.8 mg/dL 12/13/2022 11:09 AM EDT [facility] 56-02 Blood Venous blood specimen / Unknown Venipuncture / Unknown 12/13/2022 10:41 AM EDT 12/13/2022 10:41 AM EDT Macey Cheatham MD LAB BLOOD [facility] [address] [place] [address] documented in this encounter Visit Diagnoses Diagnosis Infiltrating ductal carcinoma of left breast (HCC)- Primary Osteoporosis with symptom management only Osteoporosis, unspecified CLL (chronic lymphocytic leukemia) (HCC) Chronic lymphoid leukemia, without mention of having achieved remission documented in this encounter Advance Directives Latest Code Status on File Code Status Date Activated Date Inactivated Comments No Code 12/27/2021 6:34 AM 12/27/2021 1:09 PM This order reflects the patients wishes and were consensually agreed upon. Question Answer Comments Discussion of Advance Directives occurred with: Patient Does the patient have a Living Will? No Does the patient have Health Care Power of Channeler Runner? No Code Status History Code Status Date Activated Date Inactivated Comments No Code 12/13/2021 6:43 AM 12/13/2021 1:23 PM This or tim reflects the patients wishes and were consensually agreed upon. Question Answer Comments Discussion of Advance Directives occurred with: Patient Does the patient have a Living Will? No Does the patient have Health Care Power of Channeler Runner? No Care Teams Raisin Washer Relationship Specialty Start Date End Date Annabella Victoria, [address] [place] [address] PCP - General Family Medicine 07/19/17 documented as of this encounter
--- OUTSIDE RECORDS SUMMARY | 2023-04-09 09:46 | External Medical Summary | Summary of Care ---
Author Name Unknown Organization [facility] Address [address] [place] [address] Phone [phone] Care Team Providers Care Automatic Clipper Name Role Phone Annabella Victoria DO Primary Care Provider [phone] Reason for Visit * Reason Onset Date Comments Test Results Lab 10/23/2022 Encounter Details Date Type Department Care Team Description 10/23/2022 Telephone Hematology/Oncology [facility] [place] [address] [facility] [place] [address] Macey Cheatham MD [address] [place] [address] Test Results Lab Allergies Active Allergy Reactions [...] hemoglobin A1c goal of less than 8.0% ([facility]) Inject under the skin 1.5 mg once a week . Do not start before April 03, 2022. 6 mL 3 2 Active OneTouch Verio Reflect w/Device KitIndications:Typ e 2 diabetes mellitus with hemoglobin A1c goal of less than 8.0% ([facility]) Use as directed. Test Blood sugar [...] complication, without long-term current use of insulin ([facility]),Dyslipidemia Take 1 Tablet by mouth in the morning. 90 Tablet 3 3 Active Letrozole 2.5 MG Oral Tablet (Femara)Indication s:Infiltrating ductal carcinoma of left breast (HCC),CLL (chronic lymphocytic leukemia) ([facility]) Take 1 Tablet by mouth in the morning. 90 Tablet 5 3 Active Multivitamin Adults 50+ Oral Tablet Take 1 Tablet by mouth daily. 0 Active metFORMIN HCl ER 500 MG Oral Tablet Extended Release 24 Hour (Glucophage XR)Indications:Typ e 2 diabetes mellitus without complication, without long-term current use of insulin ([facility]) Take 1 Tablet by mouth 2 [...] sinus infections 05/25/2016 Overview: 05/23>Saw ENT in [place]; CT 2 yrs ago- moved [place] -02/19--zpak,pred [...] breast can cer 05/25/2016 07/23/2018 Overview: 05/2015 [place] Screen for colon cancer 05/25/2016 07/24/19 19 Overview: csope-- 10/05/14- nl, gr 1 IH> At [place]--rpt 10 yrs documented as of this encounter (statuses as of 12/18/2022) Immunizations Name Administration Dates Next Due COVID-19 mRNA, LNP-s, No Pre serve, 2-Dose Series (Moderna) 07/06/2020,06/02/2020 Covid-19 Mrna, Lnp-s, No Preserve, Booster (Mode rna) 10/28/2021,03/02/2021 Covid-19, Mrna, Lnp-s, Pf, B ivalent, 30 Mcg, IM, 12 yrs and above (Busportal) 02/03/2022 Pneumococcal Conjugate Vacc, 13 Valent (Prevnar) [...] will proceed with 1st dose of Prolia." Labs for prolia 12/13/22. Ca 10.1, phos 4.6 Scheduling: please schedule patient for 503 injection appt "prolia" (Anthony). Thanks! * Telephone Encounter - Tia Salmeron LPN - 12/05/2022 10:23 AM EDT Per request, faxed dental clearance letter Dr. Cheatham signed to Dr Blum's office, patient's dentist. [phone] * Telephone Encounter - Tia Salmeron LPN [...] new dentist is [facility] ([address] [place] [id number]). Her phone number is [phone] and her fax number is [phone]. Called Dr. Blum's office, spoke to Salome, [...] like Tia to call back. Call back: [phone] * Telephone Encounter - Tia Salmeron LPN [...] of dentist is Dr. Matheus Rajput in [place]; office phone number is [phone] * Telephone Encounter - Tia Salmeron LPN - 11/15/2022 9:39 AM EDT Left message on daughter's phone since she has not read myG message. Need name of dentist to obtaindental clearance for prolia. * Telephone Encounter - Tia Salmeron LPN - 11/10/2022 11:13 AM EDT Patient's daughter read myG message * Telephone Encounter - Tia Salmeron LPN - 11/09/2022 10:46 AM EDT [employer] message has not been read, attempted to [...] her dental workup " Placed order for [id number] lab CMP, phos and cbcd orders already [...] out 2 weeks ago. We contacted the underground utility locator's office to let them know as we [...] AM EDT Order received for prolia 60mg, [place] created and routed to provider for signature. [...] Dunn CRNP [address] [place] [address] 02/01/2023 Office Visit General Surgery Myke Pulliam MD [address] [place] [address] 02/12/2023 Office Visit Pharmacy Pharmacist2, [facility] [address] [place] [address] 03/02/2023 Nutrition Services Nutrition Services Monica Perry RDN [address] [place] [address] 03/14/2023 Laboratory Laboratory [facility], [facility] Jen [address] [place] [address] 03/14/2023 Office Visit Family Medicine Annabella Victoria DO [address] [place] [address] 03/21/2023 Office Visit Hematology Oncology Macey Cheatham MD [address] [place] [address] 03/27/2023 Office Visit Cardiology Kimmy López DO [address] [place] [phone] 09/25/2023 Cardiac Studies Cardiology [facility] [address] [place] [address] Scheduled Orders Name Type Priority Associated Diagnoses [...] 08/20/2019, Additional history exists HbA1c 02/27/2023 08/28/2022, 1201/2022, 12/08/2021, Additional history exists DIABETES-FOOT EXAM 09/07/2023 [...] D LEVEL ONCE IN A LIFETIME-USE SMARTSET# [id number] Completed 11/14/2022 GARDASIL-HPV IMMUNIZATION SERIES Aged Out No longer eligible based on patient's age to complete this topic Hepatitis B Aged Out No longer eligi ble based on patient's age to complete this topic MENINGOCOCCAL (MENACTRA/MENVEO) Aged Out No longer eligible based on patient's age to complete this topic documented as of this encounter Medical Devices Implanted Type Area Neonatal Specialist Device Identifier Shelf Expiration Date Model / Serial / Lot Lens Intraoc 19.0 - [id number] - [id number] Implanted:Qty: 1 on 12/13/2021 by Mitchell Guzman MD at OR [facility] Left: Eye [employer] 06/06/2026 [id number] / [id number] / [id number] Lens Intraoc 19.0 - [id number] - [id number] Implanted:Qty: 1 on 12/27/2021 by Mitchell Guzman MD at OR [facility] Right: Eye [employer]OM[employer] 06/06/2026 [id number] / [id number] / [id number] documented as of this encounter Results * PHOSPHORUS (12/13/2022 10:41 AM EDT) Phosphorus 4.6 2.5 - 4.8 mg/dL 12/13/2022 11:09 AM EDT [facility] 56-02 Blood Venous blood specimen / Unknown Venipuncture / Unknown 12/13/2022 10:41 AM EDT 12/13/2022 10:41 AM EDT Macey Cheatham MD LAB BLOOD [facility] [address] [place] [address] documented in this encounter Visit Diagnoses Diagnosis [...] the patient have Health Care Power of Seafood Service Team Member? No Code Status History Code Status Date Activated Date Inactivated Comments No Code 12/13/2021 6:43 AM 12/13/2021 1:23 PM This or tim reflects the patients wishes and were consensually agreed upon. Question Answer Comments Discussion of Advance Directives occurred with: Patient Does the patient have a Living Will? No Does the patient have Health Care Power of Seafood Service Team Member? No Care Teams Automatic Clipper Relationship Specialty Start Date End Date Annabella Victoria, [address] [place] [address] PCP - General Family Medicine 07/19/17 documented as of this encounter
--- OUTSIDE RECORDS SUMMARY | 2023-04-09 09:46 | External Medical Summary | Summary of Care ---
Author Name Unknown Organization [facility] Address [address] [place] [address] Phone [phone] Care Team Providers Care Hairspring Vibrator Name Role Phone Annabella Victoria DO Primary Care Provider [phone] Reason for Visit * Reason Comments Medication Administration Prolia 60mg * Episode Based Medications (Routine) - Authorized Specialty Diagnoses / Procedures Referred By Contac t Referred To Contact Diagnoses Infiltrating ductal carcinoma of left breast (HCC) Osteoporosis with symptom management only Procedures ID DENOSUMAB INJECTION Macey Cruz MD [address] [facility] [place] [address] Anc Hem/Onc [facility] [address] [place] [phone] Referral ID Status Reason Start Date Expiration Date V isits Requested Visits Authorized [id number] Authorized 10/23/2022 10/22/2023 2 2 Encounter Details Date Type Department Care Team Description 12/18/2022 Immunization/In jection Hematology/Oncology Treatment, [facility] [address] [place] [address] Nurse, Med [address] [place] [address] [address] Osteoporosis with symptom management only*; Infiltrating ductal carcinoma of left breast (HCC) Allergies Active Allergy Reactions Severity Noted Date [...] A1c goal of less than 8.0% ([facility]) Inject under the skin 1.5 mg once a week . Do not start before April 03, 2022. 6 mL 3 04/03/2022 Active OneTouch Verio Reflect w/Device KitIndications:Type 2 diabetes mellitus with hemoglobin A1c goal of less than 8.0% ([facility]) Use as directed. Test Blood sugar one [...] left breast (HCC),CLL (chronic lymphocytic leukemia) ([facility]) Take 1 Tablet by mouth in the morning. 90 Tablet 5 09/12/2022 Active Multivitamin Adults 50+ Oral Tablet Take 1 Tablet by mouth daily. 0 Active metFORMIN HCl ER 500 MG Oral Tablet Extended Release 24 Hour (Glucophage XR)Indications:Type 2 diabetes mellitus without complication, without long-term current use of insulin ([facility]) Take 1 Tablet by mouth 2 times a day with morning and evening meals. Take in addition to medication in pill pack until completed. 14 Tablet 0 10/09/2022 Active metFORMIN HCl ER 500 MG Oral Tablet Extended Release 24 Hour (Glucophage XR)Indications:Type 2 diabetes mellitus with hemoglobin A1c goal of less than 8.0% ([facility]),Type 2 diabetes mellitus without complication, without long-term current use of insulin ([facility]) Take 2 Tablets by mouth 2 times a day with morning and evening meals. 360 Tablet 3 10/09/2022 Active Sodium Fluoride 1.1 % Dental Cream [place] onto teeth every night at bedtime. 0 Active Nystatin-Triamcinolon e 313933-1.1 UNIT/GM-% External Cream (Mycolog) APPLY TOPICALLY 4 [...] left breast (HCC),CLL (chronic lymphocytic leukemia) ([facility]) Take 1 Tablet by mouth in the morning. 90 Tablet 5 12/13/2022 Active OneTouch Keo Lancets 33GIndications:Type 2 diabetes mellitus with hemoglobin A1c goal of less than 8.0% ([facility]) Test Blood sugar two to three times per day. E11.9 300 Each 3 12/18/2022 Active OneTouch Verio In Vitro Strip (Glucose Blood)Indications:Typ e 2 diabetes mellitus with hemoglobin A1c goal of less than 8.0% ([facility]) Test Blood sugar two to three times per day. E11.9 3 Strip 3 12/18/2022 Active Hospital, Clinic, or Other Facility Administered Medication Ordered Dose Route Frequency Start Date End Date Status vitamin b-12 (Cyanocobalamin) inj 1,000 mcgIndications:B12 deficiency 1000 mcg IM [id number] 11/24/2022 10/26/2023 Active documented as of this [...] sinus infections 05/25/2016 Overview: 05/23>Saw ENT in [place]; CT 2 yrs ago- moved [place] -02/19--zpak,pred [...] breast can cer 05/25/2016 07/23/2018 Overview: 05/2015 [place] Screen for colon cancer 05/25/2016 07/24/19 19 Overview: csope-- 10/05/14- nl, gr 1 IH> At [place]--rpt 10 yrs documented as of this encounter [...] on file documented as of this encounter Nursing Notes * Torie Davidson CMA - 12/18/2022 11:04 AM EDT Prolia 60mg was administered SQ into left upper extremity per standing order. Calcium 10.1 Phosphorus 4.6 Patient denied any tooth, jaw, gum pain but advised that she is due to have tooth extraction in February. Spoke with Paulette advised that Dr. Cruz is aware of the upcoming February Tooth extraction and advised that patient can receive the Prolia injection . Patient tolerated injection and will return in 6 months documented in this encounter Plan of Treatment Upcoming Encounters Date Type Specialty Care Team Description 01/05/2023 Office Visit Family Medicine Jacey Dunn CRNP [address] [place] [address] 02/01/2023 Office Visit General Surgery Myke Pulliam MD [address] [place] [address] 02/12/2023 Office Visit Pharmacy Pharmacist2, [facility] [address] [place] [address] 03/02/2023 Nutrition Services Nutrition Services Monica Perry RDN [address] [place] [address] 03/14/2023 Laboratory Laboratory [place], [facility] [address] [place] [address] 03/14/2023 Office Visit Family Medicine Annabella Victoria, DO [address] [place] [address] 03/21/2023 Office Visit Hematology Oncology Macey Cruz MD [address] [facility] [place] [address] 03/27/2023 Office Visit Cardiology Kimmy López, DO [address] [place] [address] 06/20/2023 Immunization/Injection Hematology Oncolog y Nurse, Med 4 [address] [facility] [place] [address] 09/25/2023 Cardiac Studies Cardiology [facility] [address] [place] [address] Health Maintenance Due Date Last Done Comments [...] 11/02/2020, Additional history exists GFR 12/14/2023 12/13/2022, 050 12/2022, 02/09/2022, Additional history exists DXA Scan 10/18/2024 10/18/2022, 07/06, 02/19/2012 DTaP,Tdap,and Td Vaccines (2 - Td or Tdap) 05/26/2025 05/26/2015 Pneumococcal Vaccine: 65+ Years Completed 05/19/2014, 09/17/2012, 05/26/2002 Zoster Vaccines Completed 03/25/2019, 11/05, 02/01/2007 COVID-19 Vaccine Completed 02/03/2022, , 03/02/2021, Additional history exists VITAMIN D LEVEL ONCE IN A LIFETIME-USE SMARTSET# [id number] Completed 11/14/2022 GARDASIL-HPV IMMUNIZATION SERIES Aged Out No longer eligible based on patient's age to complete this topic Hepatitis B Aged Out No longer eligi ble based on patient's age to complete this topic MENINGOCOCCAL (MENACTRA/MENVEO) Aged Out No longer eligible based on patient's age to complete this topic documented as of this encounter Medical Devices Implanted Type Area [employer]ra [employer]ta Mold Maker Device Identifier Shelf Expiration Date Model / Serial / Lot Lens Intraoc 19.0 - [id number] - [id number] Implanted:Qty: 1 on 12/13/2021 by Mitchell Guzman MD at OR [facility] Left: Eye [employer] 06/06/2026 [id number] / [id number] / [id number] Lens Intraoc 19.0 - [id number] - [id number] Implanted:Qty: 1 on 12/27/2021 by Mitchell Guzman MD at OR [facility] Right: Eye [employer]OM[employer] 06/06/2026 [id number] / [id number] / [id number] documented as of this encounter Visit Diagnoses Diagnosis Osteoporosis with symptom management only- Primary Osteoporosis, unspecified Infiltrating ductal carcinoma of left breast (HCC) documented in this encounter Administered Medications Inactive Administered Medications - up to 3 most recent administrations Medication Order MAR Action Action Date Dose Rate Site Denosumab (Prolia) subcut inj 60 mg 60 mg, Subcutaneous, ONCE, On 12/18/22 at 1230, For 1 dose Given 12/18/2022 10:59 AM EDT 60 mg Arm Left Upper documented in this encounter Advance Directives [...] the patient have Health Care Power of Wel[employer]? No Code Status History Code Status Date Activated Date Inactivated Comments No Code 12/13/2021 6:43 AM 12/13/2021 1:23 PM This or tim reflects the patients wishes and were consensually agreed upon. Question Answer Comments Discussion of Advance Directives occurred with: Patient Does the patient have a Living Will? No Does the patient have Health Care Power of Wel[employer]? No Care Teams Hairspring Vibrator Relationship Specialty Start Date End Date Annabella Victoria, DO [address] [place] [address] PCP - General Family Medicine 07/19/17 documented as of this encounter
--- OUTSIDE RECORDS SUMMARY | 2023-04-09 09:46 | External Medical Summary | Summary of Care ---
Author Name Unknown Organization [facility] Address [address] [place] [address] Phone [phone] Care Team Providers Care Green Feed Attendant Name Role Phone Annabella Victoria DO Primary Care Provider [phone] Reason for Visit * Reason Comments Outpatient Testing Encounter Details Date Type Department Care Team Description 12/13/2022 Laboratory Laboratory [facility] [address] [place] [address] [facility] Lab Scenery [address] [place] [address] Infiltrating ductal carcinoma of left breast (HCC); Osteoporosis with symptom management only; CLL (chronic lymphocytic leukemia) ([facility]) Allergies Active Allergy Reactions Severity Noted Date Comments Pollen Other (Please comment) 03/22/2016 Itchy, inflamed eyes Penicillins Rash 03/22/2016 Sulfa Antibiotics Nausea/vomiting 03/22/2016 documented as of this encounter (statuses as of 12/13/2022) Medications Medication Sig Dispensed Refills Start Date [...] hemoglobin A1c goal of less than 8.0% ([facility]) Inject under the skin 1.5 mg once a week . Do not start before April 03, 2022. 6 mL 3 04/03/2022 Active OneTouch Verio Reflect w/Device KitIndications:Type 2 diabetes mellitus with hemoglobin A1c goal of less than 8.0% ([facility]) Use as directed. Test Blood sugar one to two times per day. E11.9 1 Kit 0 07/03/2022 Active OneTouch Delica Lancets 33GIndications:Type 2 diabetes mellitus with hemoglobin A1c goal of less than 8.0% ([facility]) Test Blood sugar one to two times per day. E11.9 200 Each 3 07/03/2022 Active Macular Health Formula Oral Capsule [...] of left breast (HCC),CLL (chronic lymphocytic leukemia) ([facility]) Take 1 Tablet by mouth in the morning. 90 Tablet 5 09/12/2022 Active Multivitamin Adults 50+ Oral Tablet Take 1 Tablet by mouth daily. 0 Active metFORMIN HCl ER 500 MG Oral Tablet Extended Release 24 Hour (Glucophage XR)Indications:Type 2 diabetes mellitus without complication, without long-term current use of insulin ([facility]) Take 1 Tablet by mouth 2 times a day with morning and evening meals. Take in addition to medication in pill pack until completed. 14 Tablet 0 10/09/2022 Active metFORMIN HCl ER 500 MG Oral Tablet Extended Release 24 Hour (Glucophage XR)Indications:Type 2 diabetes mellitus with hemoglobin A1c goal of less than 8.0% ([facility]),Type 2 diabetes mellitus without complication, without long-term current use of insulin ([facility]) Take 2 Tablets by mouth 2 times a day with morning and evening meals. 360 Tablet 3 10/09/2022 Active OneTouch Verio In Vitro Strip (Glucose Blood)Indications:Typ e 2 diabetes mellitus with hemoglobin A1c goal of less than 8.0% ([facility]) Test Blood sugar one to two times per day. E11.9 200 Strip 2 11/02/2022 Active Sodium Fluoride 1.1 % Dental Cream [place] onto teeth every night at bedtime. 0 Active Nystatin-Triamcinolon e 147544-1.1 UNIT/GM-% External Cream (Mycolog) APPLY TOPICALLY 4 [...] TabletIndications:Inf iltrating ductal carcinoma of left breast ([facility]),CLL (chronic lymphocytic leukemia) ([facility]) Take 1 Tablet by mouth in the morning. 90 Tablet 5 12/13/2022 Active Hospital, Clinic, or Other Facility Administered Medication Ordered Dose Route Frequency Start Date End Date Status vitamin b-12 (Cyanocobalamin) inj 1,000 mcgIndications:B12 deficiency 1000 mcg IM [id number] 11/24/2022 10/26/2023 Active documented as of this encounter (statuses as of 12/13/2022) Active Problems Problem Noted Date Osteoporosis with [...] sinus infections 05/25/2016 Overview: 05/23>Saw ENT in [place]; CT 2 yrs ago- moved [place] -02/19--zpak,pred 03/22, pred 04/21;doxy 05/23--not on nasacort daily-resume and + claritin Preoperative general physical examinatio n 05/25/2016 Overview: 07/21-l-m risk--0.3/-1.7--rpt 3 yrs Type 2 diabetes mellitus wit hout complication, without long-term current use of insulin 04/10/2016 HTN, goal below 140/90 04/10/2016 Dyslipidemia 04/10/2016 Acquired hypothyroidism 04/10/2016 documented as of this encounter (statuses as of 12/13/2022) Resolved Problems Problem Noted Date Resolved Date Mammographic microcalcification 10/19/2016 08/13/2018 Overview: 12/21--scattered fibroglandular densities (25% - 50% fibroglandular), dystrophic ca+-rpt 1 yr Closed fracture of proximal end of right humerus with routine healing 10/19/2016 07/23/2018 Overview: 07/25/16 Encounter for screening mammogram for breast can cer 05/25/2016 07/23/2018 Overview: 05/2015 [place] Screen for colon cancer 05/25/2016 07/24/19 19 Overview: csope-- 10/05/14- nl, gr 1 IH> At [place]--rpt 10 yrs documented as of this encounter (statuses as of 12/13/2022) Immunizations Name Administration Dates Next Due COVID-19 [...] Encounters Date Type Specialty Care Team Description 12/18/2022 Office Visit Pharmacy Pharmacist2, [facility] [address] [place] [address] 01/05/2023 Office Visit Family Medicine Jacey Dunn CRNP [address] [place] [address] 02/01/2023 Office Visit General Surgery Myke Pulliam MD [address] [place] [address] 03/02/2023 Nutrition Services Nutrition Services Monica Perry, LEON [address] [place] [address] 03/14/2023 Laboratory Laboratory [facility] [address] [facility] [place] [address] 03/14/2023 Office Visit Family Medicine Annabella Victoria DO [address] [facility] [place] [address] 03/21/2023 Office Visit Hematology Oncology Macey Cruz MD [address] [place] [address] 03/27/2023 Office Visit Cardiology Kimmy López, DO [address] [place], [place] [id number] 09/25/2023 Cardiac Studies Cardiology [facility] 132 [facility] [place] [address] Pending Results Name Type Priority Associated Diagnoses Date /Time PHOSPHORUS Lab STAT Infiltrating ductal carcinoma of left breast (HCC) Osteoporosis with symptom management only 12/13/2022 10:41 AM EDT COMPREHENSIVE METABOLIC PANEL Lab Routine Infiltrating ductal carcinoma of left breast (HCC) CLL (chronic lymphocytic leukemia) (HCC) 12/13/2022 10:41 AM EDT LD Lab Routine Infiltrating ductal carcinoma of left breast (HCC) CLL (chronic lymphocytic leukemia) (HCC) 12/13/2022 10:41 AM EDT Health Maintenance Due Date Last Done Comments Albumin/Creatinine Ratio 05/10/2022 022, 09/27/2017, 07/04/2016 DIABETES-EYE EXAM 08/15/2022 08/15/2021, , 07/15/2019, Additional history exists *BISPHONATE OR OTHER ACCEPTABLE MEDICATION NEEDED FOR OSTEOPOROSIS (REFER TO SMARTSET #1146) 10/26/2022 Influenza Vaccine (FLU shot) (#1) 2023 02/16/2022, 02/04/2021, 02/13/2020, Additional history exists TSH 02/09/2023 02/09/2022, 10/06, 08/20/2019, Additional history exists HbA1c 02/27/2023 08/28/2022, 12/01/2022, 12/08/2021, Additional history exists DIABETES-FOOT EXAM 09/07/2023 09/06/2022, 0 08/10/2021, 11/03/2020, Additional history exists Depression Screening, Annual for Pts 12 and Over 09/07/2023 09/06/2022 GFR 09/12/2023 09/11/2022, 10/0 10/2021, 08/24/2021, Additional history exists B-12 11/15/2023 11/14/2022, 04/0 09/2021, 11/02/2020, Additional history exists DXA Scan 10/18/2024 10/18/2022, 07/06, 02/19/2012 DTaP,Tdap,and Td Vaccines (2 - Td or Tdap) 05/26/2025 05/26/2015 Pneumococcal Vaccine: 65+ Years Completed 05/19/2014, 09/17/2012, 05/26/2002 Zoster Vaccines Completed 03/25/2019, 11/05, 02/01/2007 COVID-19 Vaccine Completed 02/03/2022, , 03/02/2021, Additional history exists VITAMIN D LEVEL ONCE IN A LIFETIME-USE SMARTSET# 12872 Completed 11/14/2022 GARDASIL-HPV IMMUNIZATION SERIES Aged Out No longer eligible based on patient's age to complete this topic Hepatitis B Aged Out No longer eligi ble based on patient's age to complete this topic MENINGOCOCCAL (MENACTRA/MENVEO) Aged Out No longer eligible based on patient's age to complete this topic documented as of this encounter Medical Devices Implanted Type Area Material Control Manager Device Identifier Shelf Expiration Date Model / Serial / Lot Lens Intraoc 19.0 - [id number] - [id number] Implanted:Qty: 1 on 12/13/2021 by Mitchell Guzman MD at OR [facility] Left: Eye [employer]OM[employer] 06/06/2026 [id number] / [id number] / [id number] Lens Intraoc 19.0 - [id number] - [id number] Implanted:Qty: 1 on 12/27/2021 by Mitchell Guzman MD at OR [facility] Right: Eye [employer]OMB 06/06/2026 [id number] / [id number] / [id number] documented as of this encounter Procedures Procedure Name Priority Date/Time Associated Diagnosis Comments DIFFERENTIAL, AUTOMATED Routine 12/13/2022 10:41 AM EDT Infiltrating ductal carcinoma of left breast (HCC) CLL (chronic lymphocytic leukemia) (HCC) CBC WITH WBC DIFFERENTIAL Routine 12/13/2022 10:41 AM EDT Infiltrating ductal carcinoma of left breast (HCC) CLL (chronic lymphocytic leukemia) (HCC) CBC Routine 12/13/2022 10:41 AM EDT Infiltrating ductal carcinoma of left breast (HCC) CLL (chronic lymphocytic leukemia) (HCC) documented in this encounter Results * (ABNORMAL) DIFFERENTIAL, AUTOMATED (12/13/2022 10:41 AM EDT) WBC 11.06(H) 4.00 - 10.80 K/uL 12/13/2022 10:48 AM EDT [facility] [place] 56-02 Neutrophils % 65.6 40.0 - 75.0 % 12/13/2022 10:48 AM EDT [facility] [place] 56-02 Lymphocytes % 24.0 18.0 - 42.0 % 12/13/2022 10:48 AM EDT [facility] 56- Monocytes % 7.8 1.0 - 11.0 % 12/13/2022 10:48 AM EDT [facility] 56- Eosinophils % 2.3 0.0 - 6.0 % 12/13/2022 10:48 AM EDT [facility] 56- Basophils % 0.3 0.0 - 2.0 % 12/13/2022 10:48 AM EDT [facility] 56- Absolute Neutrophils 7.27 1.80 - 7.70 K/uL 12/13/2022 10:48 AM EDT [facility] 56- Absolute Lymphocytes 2.65 1.00 - 4.80 K/ul 12/13/2022 10:48 AM EDT [facility] 56- Absolute Monocytes 0.86 0.00 - 1.10 K/uL 12/13/2022 10:48 AM EDT [facility] 56- Absolute Eosinophils 0.25 0.00 - 0.70 K/uL 12/13/2022 10:48 AM EDT [facility] 56- Absolute Basophils 0.03 0.00 - 0.20 K/uL 12/13/2022 10:48 AM EDT [facility] 56- Blood Venous blood specimen / Unknown Venipuncture / Unknown 12/13/2022 10:41 AM EDT 12/13/2022 10:41 AM EDT Macey Cruz MD LAB BLOOD ORDERA BLES [facility] 56- [address] [place] [address] * (ABNORMAL) CBC (12/13/2022 10:41 AM EDT) WBC 11.06(H) 4.00 - 10.80 K/uL 12/13/2022 10:48 AM EDT [facility] 56- RBC 4.84 3.85 - 5.15 M/uL 12/13/2022 10:48 AM EDT [facility] 56- HGB 13.7 12.0 - 15.3 g/dL 12/13/2022 10:48 AM EDT [address] HCT 42.6 36.0 - 45.2 % 12/13/2022 10:48 AM EDT [address] MCV 88.0 81.5 - 97.5 fL 12/13/2022 10:48 AM EDT [address] MCH 28.3 27.0 - 34.0 pg 12/13/2022 10:48 AM EDT [address] MCHC 32.2 32.0 - 36.0 g/dL 12/13/2022 10:48 AM EDT [address] RDW 13.8 11.5 - 15.5 % 12/13/2022 10:48 AM EDT [address] PLT 246 140 - 400 K/uL 12/13/2022 10:48 AM EDT [address] MPV 10.6 6.6 - 11.1 fL 12/13/2022 10:48 [address] Blood Venous blood specimen / Unknown Venipuncture / Unknown 12/13/2022 10:41 AM EDT 12/13/2022 10:41 AM EDT Macey Cruz MD LAB BLOOD ORDERA BLES [address] [place] [address] documented in this encounter Visit Diagnoses Diagnosis [...] the patient have Health Care Power of Recreational Counselor? No Code Status History Code Status Date Activated Date Inactivated Comments No Code 12/13/2021 6:43 AM 12/13/2021 1:23 PM This or tim reflects the patients wishes and were consensually agreed upon. Question Answer Comments Discussion of Advance Directives occurred with: Patient Does the patient have a Living Will? No Does the patient have Health Care Power of Recreational Counselor? No Care Teams Green Feed Attendant Relationship Specialty Start Date End Date Annabella Victoria, DO [address] [place] [address] PCP - General Family Medicine 07/19/17 documented as of this encounter
--- OUTSIDE RECORDS SUMMARY | 2023-04-09 09:46 | External Medical Summary | Summary of Care ---
Author Name Unknown Organization [facility] Address [address] [place] [address] Phone [phone] Care Team Providers Care Instructional Technology Instructor Name Role Phone Annabella Victoria DO Primary Care Provider [phone] Reason for Visit * Reason Comments Dosage Adjustment In Person (Anticoag Cl inic) Diabetes Management Encounter Details Date Type Department Care Team Description 12/18/2022 Office Visit Pharmacy, [facility] [address] [facility] [place] [address] Pharmacist2, [facility] [address] [facility] [place] [address] Type 2 diabetes mellitus with hemoglobin A1c goal of less than 8.0% ([facility])*; Type 2 diabetes mellitus without complication, without long-term current use of insulin ([facility]) Allergies Active Allergy Reactions Severity Noted Date [...] hemoglobin A1c goal of less than 8.0% ([facility]) Inject under the skin 1.5 mg once a week . Do not start before April 03, 2022. 6 mL 3 2 Active OneTouch Verio Reflect w/Device KitIndications:Type 2 diabetes mellitus with hemoglobin A1c goal of less than 8.0% ([facility]) Use as directed. Test Blood [...] of left breast (HCC),CLL (chronic lymphocytic leukemia) ([facility]) Take 1 Tablet by mouth in the morning. 90 Tablet 5 3 Active Multivitamin Adults 50+ Oral Tablet Take 1 Tablet by mouth daily. 0 Active metFORMIN HCl ER 500 MG Oral Tablet Extended Release 24 Hour (Glucophage XR)Indications:Type 2 diabetes mellitus without complication, without long-term current use of insulin ([facility]) Take 1 Tablet by mouth 2 times a day with morning and evening meals. Take in addition to medication in pill pack until completed. 14 Tablet 0 3 Active metFORMIN HCl ER 500 MG Oral Tablet Extended Release 24 Hour (Glucophage XR)Indications:Type 2 diabetes mellitus with hemoglobin A1c goal of less than 8.0% ([facility]),Type 2 diabetes mellitus without complication, without long-term current use of insulin ([facility]) Take 2 Tablets by mouth 2 times a day with morning and evening meals. 360 Tablet 3 3 Active Sodium Fluoride 1.1 % Dental Cream [place] onto teeth every night at bedtime. 0 Active Nystatin-Triamcinol one 826765-1.1 UNIT/GM-% External Cream (Mycolog) APPLY TOPICALLY 4 [...] TabletIndications:I nfiltrating ductal carcinoma of left breast ([facility]),CLL (chronic lymphocytic leukemia) ([facility]) Take 1 Tablet by mouth in the morning. 90 Tablet 5 3 Active OneTouch Delica Lancets 33GIndications:Type 2 diabetes mellitus with hemoglobin A1c goal of less than 8.0% ([facility]) Test Blood sugar two to three times per day. E11.9 300 Each 3 3 Active OneTouch Verio In Vitro Strip (Glucose Blood)Indications:T ype 2 diabetes mellitus with hemoglobin A1c goal of less than 8.0% (HCC) Test Blood sugar two to three times per day. E11.9 3 Strip 3 3 Active OneTouch Delica Lancets 33GIndications:Type 2 diabetes mellitus with hemoglobin A1c goal of less than 8.0% (HCC) Test Blood sugar one to two times per day. E11.9 200 Each 3 3 12/19/19 23 Discontinued OneTouch Verio In Vitro Strip (Glucose Blood)Indications:T ype 2 diabetes mellitus with hemoglobin A1c goal of less than 8.0% (HCC) Test Blood sugar one to two times per day. E11.9 200 Strip 2 3 12/19/19 23 Discontinued Hospital, Clinic, or Other Facility Administered Medication Ordered Dose Route Frequency Start Date End Date Status vitamin b-12 (Cyanocobalamin) inj 1,000 mcgIndications:B12 deficiency 1000 mcg IM [id number] 11/24/2022 10/26/2023 Active documented as of this [...] sinus infections 05/25/2016 Overview: 05/23>Saw ENT in [place]; CT 2 yrs ago- moved [place] -02/19--zpak,pred [...] breast can cer 05/25/2016 07/23/2018 Overview: 05/2015 [place] Screen for colon cancer 05/25/2016 07/24/19 19 Overview: csope-- 10/05/14- nl, gr 1 IH> At [place]--rpt 10 yrs documented as of this [...] as of this encounter Progress Notes * Trav Ford, [facility] - 12/18/2022 10:04 AM EDT Medication Therapy Disease Management [facility] - Diabetes Management Progress Note Sera Plata, identified by name and date of , is a 81 year old female being seen for diabetes management/education. Patient presents for return diabetic visit. DIABETES: Current diabetic medications: Metformin ER 500mg two tablets twice daily Trulicity 1.5mg once weekly Medication Injection Site: N/A Lifestyle: Diet: unchanged Glucose Review/SMBG: Readings obtained from patient documented BG logbook Pre am Post am Pre Lunch Post Lunch Pre pm Post pm HS 152 188 158 214 134 239 204 209 204 225 166 371 195 218 160 262 200 272 154 290 184 290 195 280 176 Pre am Post am Pre Lunch Post Lunch Pre pm Post pm HS Average 176 #DIV/0! #DIV/0! #DIV/0! #DIV/0! #DIV/0! 255 Hi 204 0 0 0 0 0 371 Lo 134 0 0 0 0 0 188 Range 70 0 0 0 0 0 183 Hypoglycemia: Does your blood sugar go below 70 mg/dL? No Hyperglycemia symptoms present: none Recent Labs Units 08/28/22 1043 04/24/22 1412 12/08/21 1034 HEMOGLOBIN A1C - [facility] % -- -- 8.2* HEMOGLOBIN A1C POCT - [facility] % 7.3* 7.1* -- Recent Labs Units 12/13/22 1041 09/11/22 0948 02/09/22 1053 ESTIMATED GLOMERULAR FILTRATION RATE - [facility] mL/min 61 77 67 CREATININE - [facility] mg/dL 0.9 0.8 0.9 HYPERTENSION: Patient on ACEi/ARB: yes BP Readings from Last 3 Encounters: 12/13/22 156/82 11/24/22 110/68 09/12/22 158/83 Blood pressure at goal: yes HYPERLIPIDEMIA: Patient is taking moderate or high intensity statin: yes HEALTH MAINTENANCE REVIEW: Health Maintenance Due Topic Date Due Albumin/Creatinine Ratio 05/10/2022 DIABETES-EYE EXAM 08/15/2022 *BISPHONATE OR OTHER ACCEPTABLE MEDICATION NEEDED FOR OSTEOPOROSIS (REFER TO SMARTSET #1146) Never done ASSESSMENT & PLAN: ICD-10-CM 1. Type 2 diabetes mellitus with hemoglobin A1c goal of less than 8.0% ([facility]) E11.9 BG Readings - Blood sugars uncontrolled. BG averaging in the 170-250 range. A1c ordered. Patient given dexcom G7 sample today in clinic. Medications - Reviewed current regimen, patient is adherent to regimen. Patient declines starting aonce daily insulin but will reach out if she changes her mind. Diet, Exercise, Lifestyle - No significant lifestyle changes since last visit. Patient is agreeable to SMBG 4 time(s) daily. Patient aware to contact clinic if any hypoglycemia before next visit. MEDICATION CHANGES: no change Diabetic Medications: Metformin ER 500mg two tablets twice daily Trulicity 1.5mg once weekly HEALTH MAINTENANCE INTERVENTIONS: Labs: Ordered & Scheduled: HgA1c and BMP/CMP Immunizations: Up to Date Foot Exam: Up to Date Eye Exam: Up to Date Annual Wellness Visit: Up to Date FOLLOW UP: Return to clinic in 8 weeks 02/12/2023 Trav Ford RP Clinical Pharmacist - Daytime Babysitter Medication Therapy Management [facility] 12/18/2022, 10:04 AM documented in this encounter Plan of Treatment Upcoming Encounters Date Type Specialty Care Team Description 12/18/2022 Immunization/Inject ion Hematology Oncology Nurse, Med 4 [address] [facility] [place], [place] [address] Osteoporosis with symptom management only*; Infiltrating ductal carcinoma of left breast (HCC) 01/05/2023 Office Visit Family Medicine Jacey Dunn CRNP [address] [place] [address] 02/01/2023 Office Visit General Surgery Myke Pulliam MD [address] [place] [address] 02/12/2023 Office Visit Pharmacy Pharmacist2, [facility] [address] [facility] [place] [address] 03/02/2023 Nutrition Services Nutrition Services Monica Perry, RDN [facility] [place] [address] 03/14/2023 Laboratory Laboratory [facility] [address] [facility] [place] [address] 03/14/2023 Office Visit Family Medicine Annabella Victoria DO 132 [facility] [place] [address] 03/21/2023 Office Visit Hematology Oncology Macey Cruz MD [address] [facility] [place] [address] 03/27/2023 Office Visit Cardiology Kimmy López, [address] [id number] 09/25/2023 Cardiac Studies Cardiology [facility] 132 [facility] [place] [address] Scheduled Orders Name Type Priority Associated Diagnoses Orde r Schedule HEMOGLOBIN A1C Lab Routine Type 2 diabetes mellitus with hemoglobin A1c goal of less than 8.0% (HCC) Expected: 12/18/2022 (Approximate), Expires: 12/19/2023 BASIC METABOLIC PANEL Lab Routine Type 2 diabetes mellitus with hemoglobin A1c goal of less than 8.0% (HCC) Expected: 12/18/2022 (Approximate), Expires: 12/19/2023 Health Maintenance Due Date Last Done Comments [...] D LEVEL ONCE IN A LIFETIME-USE SMARTSET# [id number] Completed 11/14/2022 GARDASIL-HPV IMMUNIZATION SERIES Aged Out No longer eligible based on patient's age to complete this topic Hepatitis B Aged Out No longer eligi ble based on patient's age to complete this topic MENINGOCOCCAL (MENACTRA/MENVEO) Aged Out No longer eligible based on patient's age to complete this topic documented as of this encounter Medical Devices Implanted Type Area Audiology Doctor Device Identifier Shelf Expiration Date Model / Serial / Lot Lens Intraoc 19.0 - [id number] - [id number] Implanted:Qty: 1 on 12/13/2021 by Mitchell Guzman MD at OR [facility] Left: Eye [employer] 06/06/2026 [id number] / [id number] / [id number] Lens Intraoc 19.0 - [id number] - [id number] Implanted:Qty: 1 on 12/27/2021 by Mitchell Guzman MD at OR [facility] Right: Eye [employer] LOMB 06/06/2026 [id number] / [id number] / [id number] documented as of this encounter Visit Diagnoses Diagnosis Type 2 diabetes mellitus with hemoglobin A1c goal of less than 8.0% (HCC)- Primary Type 2 diabetes mellitus without complication, without long-term current use of insulin (HCC) Osteoporosis with symptom management only- Primary Osteoporosis, [...] the patient have Health Care Power of Computer Repair Engineer? No Code Status History Code Status Date Activated Date Inactivated Comments No Code 12/13/2021 6:43 AM 12/13/2021 1:23 PM This or tim reflects the patients wishes and were consensually agreed upon. Question Answer Comments Discussion of Advance Directives occurred with: Patient Does the patient have a Living Will? No Does the patient have Health Care Power of Computer Repair Engineer? No Care Teams Instructional Technology Instructor Relationship Specialty Start Date End Date Annabella Victoria, DO [address] [place] [address] PCP - General Family Medicine 07/19/17 documented as of this encounter
--- OUTSIDE RECORDS SUMMARY | 2023-04-09 09:46 | External Medical Summary | Summary of Care ---
Author Name Unknown Organization [facility] Address [address] [place] [address] Phone [phone] Care Team Providers Care Stock Worker And Deliverer Name Role Phone Annabella Victoria DO Primary Care Provider [phone] Reason for Visit * Reason Comments Re-Check Mood recheck & b 12 Encounter Details Date Type Department Care Team Description 01/05/2023 Office Visit Family Practice [facility] [address] [place] [address] Jacey Dunn CRNP [address] [place] [address] Adjustment disorder with depressed mood*; B12 deficiency; Type 2 diabetes mellitus without complication, without long-term current use of insulin (HCC); Infiltrating ductal carcinoma of left breast (HCC) Allergies Active Allergy Reactions Severity Noted Date Comments Pollen Other (Please comment) 03/22/2016 Itchy, inflamed eyes Penicillins Rash 03/22/2016 Sulfa Antibiotics Nausea/vomiting 03/22/2016 documented as of this encounter (statuses as of 01/05/2023) Medications Medication Sig Dispensed Refills Start Date [...] hemoglobin A1c goal of less than 8.0% ([facility]) Inject under the skin 1.5 mg once a week . Do not start before April 03, 2022. 6 mL 3 04/03/2022 Active OneTouch Verio Reflect w/Device KitIndications:Type 2 diabetes mellitus with hemoglobin A1c goal of less than 8.0% ([facility]) Use as directed. Test Blood sugar one [...] complication, without long-term current use of insulin ([facility]),Dyslipidemia Take 1 Tablet by mouth in the morning. 90 Tablet 3 09/06/2022 Active Letrozole 2.5 MG Oral Tablet (Femara)Indications:I nfiltrating ductal carcinoma of left breast (HCC),CLL (chronic lymphocytic leukemia) ([facility]) Take 1 Tablet by mouth in the morning. 90 Tablet 5 09/12/2022 Active Multivitamin Adults 50+ Oral Tablet Take 1 Tablet by mouth daily. 0 Active metFORMIN HCl ER 500 MG Oral Tablet Extended Release 24 Hour (Glucophage XR)Indications:Type 2 diabetes mellitus without complication, without long-term current use of insulin ([facility]) Take 1 Tablet by mouth 2 times a day with morning and evening meals. Take in addition to medication in pill pack until completed. 14 Tablet 0 10/09/2022 Active metFORMIN HCl ER 500 MG Oral Tablet Extended Release 24 Hour (Glucophage XR)Indications:Type 2 diabetes mellitus with hemoglobin A1c goal of less than 8.0% ([facility]),Type 2 diabetes mellitus without complication, without long-term current use of insulin ([facility]) Take 2 Tablets by mouth 2 times a day with morning and evening meals. 360 Tablet 3 10/09/2022 Active Sodium Fluoride 1.1 % Dental Cream Cresson onto teeth every night at bedtime. 0 Active Nystatin-Triamcinolon e 969374-3.1 UNIT/GM-% External Cream (Mycolog) APPLY TOPICALLY 4 [...] TabletIndications:Inf iltrating ductal carcinoma of left breast ([facility]),CLL (chronic lymphocytic leukemia) ([facility]) Take 1 Tablet by mouth in the morning. 90 Tablet 5 12/13/2022 Active OneTouch Delica Lancets 33GIndications:Type 2 diabetes mellitus with hemoglobin A1c goal of less than 8.0% ([facility]) Test Blood sugar two to three times per day. E11.9 300 Each 3 12/18/2022 Active OneTouch Verio In Vitro Strip (Glucose Blood)Indications:Typ e 2 diabetes mellitus with hemoglobin A1c goal of less than 8.0% ([facility]) Test Blood sugar two to three times per day. E11.9 3 Strip 3 12/18/2022 Active Dulaglutide 1.5 MG/0.5ML Subcutaneous Solution Pen-injector (Payfone) Inject 1.5 mg under the skin once a week. 2 mL 5 12/22/2022 Active Hospital, Clinic, or Other Facility Administered Medication Ordered Dose Route Frequency Start Date End Date Status vitamin b-12 (Cyanocobalamin) inj 1,000 mcgIndications:B12 deficiency 1000 mcg IM [id number] 11/24/2022 10/26/2023 Active documented as of this encounter (statuses as of 01/05/2023) Active Problems Problem Noted Date Osteoporosis with [...] sinus infections 05/25/2016 Overview: 05/23>Saw ENT in [place]; [place] 2 yrs ago- moved [place] -02/19--zpak,pred 03/22, pred 04/21;doxy 05/23--not on nasacort daily-resume and + claritin Preoperative general physical examinatio n 05/25/2016 Overview: 07/21-l-m risk--0.3/-1.7--rpt 3 yrs Type 2 diabetes mellitus wit hout complication, without long-term current use of insulin 04/10/2016 HTN, goal below 140/90 04/10/2016 Dyslipidemia 04/10/2016 Acquired hypothyroidism 04/10/2016 documented as of this encounter (statuses as of 01/05/2023) Resolved Problems Problem Noted Date Resolved Date Mammographic microcalcification 10/19/2016 08/13/2018 Overview: 12/21--scattered fibroglandular densities (25% - 50% fibroglandular), dystrophic ca+-rpt 1 yr Closed fracture of proximal end of right humerus with routine healing 10/19/2016 07/23/2018 Overview: 07/25/16 Encounter for screening mammogram for breast can cer 05/25/2016 07/23/2018 Overview: 05/2015 [place] Screen for colon cancer 05/25/2016 07/24/19 19 Overview: csope-- 10/05/14- nl, gr 1 IH> At [place]--rpt 10 yrs documented as of this encounter (statuses as of 01/05/2023) Immunizations Name Administration Dates Next Due COVID-19 [...] Sign Reading Time Taken Comments Blood Pressure 130/70 01/05/2023 9:22 AM EDT Pulse 71 01/05/2023 9:22 AM EDT Temperature 36.6 C (97.8 F) 01/05/2023 9:22 AM ED T Respiratory Rate - - Oxygen Saturation 97% 01/05/2023 9:22 AM EDT Inhaled Oxygen Concentration - - Weight 59.8 kg (131 lb 12.8 oz) 01/05/2023 9:22 AM EDT Height - - Body Mass Index 26.62 11/29/2022 8:33 AM EDT documented in this encounter Progress Notes * CASEY Mosqueda - 01/05/2023 9:40 AM EDT Images from the original note were not included. History of Present Illness Sera Plata is a 82 year old female that presents for Re-Check (Mood recheck & b 12 ) HPI Here with son today. Per patient appetite no better but mood seems a little improved. Son actually points out that she has eaten a bit more at some recent family meals. Excited about a cruise they just booked. Feels like she has something to look forward to. Joined a few things to -- [employer] club and season tickets for basketball. Sleep is undisturbed. Her daughter is returning to [place] soon and her son will start doing his edge worker at her house to help with her needs. She got her B12 injection today. She followed up with occupational health and safety officer and has been following some of their recommendations -- protein smoothies and high protein meals. Her weight has increased 1 pound since last visit. She is discussing trulicity with MTM and possibility of starting basal insulin/decreasing trulicity to see if this helps with appetite. She is following with oncology for breast CA, CLL. She is now on tamoxifen. Prolia -- following with rheum. Denies any falls or dizziness or excessive day time fatigue on remeron. Would like to continue it. Outpatient Medications Marked as Taking for the 01/05/23 encounter (Office Visit) with CASEY Mosqueda Medication Sig Dulaglutide 1.5 MG/0.5ML Subcutaneous Solution Pen-injector (Trulicity) Inject 1.5 mg under the skin once a week. [employer] Del[employer]ica Lancets 33G Test Blood sugar two to three times per day. E11.9 [employer] In Vitro Strip (Glucose Blood) Test Blood sugar two to three times per day. E11.9 Tamoxifen Citrate 20 MG Oral Tablet Take 1 Tablet by mouth in the morning. Mirtazapine 15 MG Oral Tablet (Remeron) Take 1 Tablet by mouth at bedtime. Nystatin-Triamcinolone 455230-3.1 UNIT/GM-% External Cream (Mycolog) APPLY TOPICALLY 4 TIMES DAILY FOR RASH UNDER BREAST SSD 1 % External Cream APPLY 1.5MM THICKNESS TWICE DAILY FOR RADIATIONS DERMATITIS Sodium Fluoride 1.1 % Dental Cream Cresson onto teeth every night at bedtime. metFORMIN HCl ER 500 MG Oral Tablet Extended Release 24 Hour (Glucophage XR) Take 1 Tablet by mouth2 times a day with morning and evening meals. Take in addition to medication in pill pack until completed. metFORMIN HCl ER 500 MG Oral Tablet Extended Release 24 Hour (Glucophage XR) Take 2 Tablets by mouth 2 times a day with morning and evening meals. Multivitamin Adults 50+ Oral Tablet Take 1 Tablet by mouth daily. Letrozole 2.5 MG Oral Tablet (Femara) Take 1 Tablet by mouth in the morning. amLODIPine Besylate 2.5 MG Oral Tablet (Norvasc) Take 1 Tablet by mouth in the morning. Aspirin 81 MG Oral Tablet Chewable Take 1 Tablet by mouth in the morning. with food.. Levothyroxine Sodium 50 MCG Oral Tablet (Levoxyl) (at least 30 min prior to breakfast or other meds) Losartan Potassium 100 MG Oral Tablet (Cozaar) Take 1 Tablet by mouth in the morning. Metoprolol Succinate ER 50 MG Oral Tablet Extended Release 24 Hour (toPROL XL) Take 1 Tablet by mouth in the morning. Pravastatin Sodium 40 MG Oral Tablet (Pravachol) Take 1 Tablet by mouth in the morning. Macular Health Formula Oral Capsule Take by mouth. [employer] Reflect w/Device Kit Use as directed. Test Blood sugar one to two times per day. E11.9 Trulicity 1.5 MG/0.5ML Subcutaneous Solution Pen-injector (Dulaglutide) Inject under the skin 1.5 mg once a week . Do not start before April 03, 2022. ProAir HFA 108 (90 Base) MCG/ACT Inhalation Aerosol Solution Inhale 2 Puffs by mouth every 4 hours as needed for Wheezing. Omeprazole Magnesium 20 MG Oral Tablet Delayed Release (PriLOSEC OTC) Take 1 Tablet by mouth as needed for Heartburn. Current Facility-Administered Medications for the 01/05/23 encounter (Office Visit) with CASEY Mosqueda Medication vitamin b-12 (Cyanocobalamin) inj 1,000 mcg Physical Exam Vitals: 01/05/23 0922 Temp: 36.6 C (97.8 F) Pulse: 71 SpO2: 97% BP: 130/70 Physical Exam Vitals reviewed. Constitutional: General: She is not in acute distress. Appearance: She is not ill-appearing. Cardiovascular: Rate and Rhythm: Normal rate. Pulmonary: Effort: No respiratory distress. Musculoskeletal: Right lower leg: No edema. Left lower leg: No edema. Skin: General: Skin is warm and dry. Neurological: Mental Status: She is alert and oriented to person, place, and time. Motor: No weakness. Psychiatric: Mood and Affect: Mood normal. Behavior: Behavior normal. Thought Content: Thought content normal. Assessment and Plan Adjustment disorder with depressed mood Some improvement Continue current dosing of remeron Can consider increase at PCP follow up in 2 mo if needed; f/u sooner if symptoms worsen B12 deficiency Injection given today Encouraged scheduling next injection around her MTM visit so she stays up to date on these Type 2 diabetes mellitus without complication, without long-term current use of insulin (HCC) Uncontrolled. Considering insulin. Following with MTM Infiltrating ductal carcinoma of left breast (HCC) Following with heme/onc. On tamoxifen Wrap-Up Check-out note: Schedule nurse visit for b12 injection Time: I spent a total of 30-39 minutes (exact time 30 mins) on the date of service in preparation, delivery, and documentation of the care provided to Sera Plata excluding any time spent in the performance of separately billed services. documented in this encounter Nursing Notes * Letty Arriaza LPN - 01/05/2023 9:21 AM EDT The patient has been properly identified by confirmation of name and date of . Chief Complaint Patient presents with Re-Check Mood recheck & b 12 Pt states she still dose not have an appetite. Trulicity-- was discussed about putting on daily insulin rather than weekly trulicity. (Pt has [facility] appt in feb). Blood glucose has been hanging out in the 200s at night. (With or without ice cream) documented in this encounter Plan of Treatment Upcoming Encounters Date Type Specialty Care Team Description 02/01/2023 Office Visit General Surgery Myke Pulliam MD [address] [place] [id number] 02/12/2023 Office Visit Pharmacy Pharmacist1, [facility] [address] [place] [address] 03/02/2023 Nutrition Services Nutrition Services Monica Perry RDN [address] [place] [address] 03/14/2023 Laboratory Laboratory [facility] [address] [place] [address] 03/14/2023 Office Visit Family Medicine Annabella Victoria DO [address] [place] [address] 03/21/2023 Office Visit Hematology Oncology Macey Cruz MD [address] [place] [address] 03/27/2023 Office Visit Cardiology Kimmy López DO [address] [place] [phone] 06/20/2023 Immunization/Injection Hematology Oncolog y Nurse, Med [address] [place] [address] 09/25/2023 Cardiac Studies Cardiology [address] [place] [address] Health Maintenance Due Date Last Done Comments [...] D LEVEL ONCE IN A LIFETIME-USE SMARTSET# [id number] Completed 11/14/2022 GARDASIL-HPV IMMUNIZATION SERIES Aged Out No longer eligible based on patient's age to complete this topic Hepatitis B Aged Out No longer eligi ble based on patient's age to complete this topic MENINGOCOCCAL (MENACTRA/MENVEO) Aged Out No longer eligible based on patient's age to complete this topic documented as of this encounter Medical Devices Implanted Type Area Staff Cytotechnologist Device Identifier Shelf Expiration Date Model / Serial / Lot Lens Intraoc 19.0 - [id number] - [id number] Implanted:Qty: 1 on 12/13/2021 by Mitchell Guzman MD at OR [facility] Left: Eye [employer] 06/06/2026 [id number] / [id number] / [id number] Lens Intraoc 19.0 - [id number] - [id number] Implanted:Qty: 1 on 12/27/2021 by Mitchell Guzman MD at OR [facility] Right: Eye [employer] 06/06/2026 [id number] / [id number] / [id number] documented as of this encounter Visit Diagnoses Diagnosis Adjustment disorder with depressed mood- Primary B12 deficiency Other B-complex deficiencies Type 2 diabetes mellitus without complication, without long-term current use of insulin (HCC) Infiltrating ductal carcinoma of left breast (HCC) documented in this encounter Administered Medications Active Administered Medications - up to 3 most recent administrations Medication Order MAR Action Action Date Dose Rate Site vitamin b-12 (Cyanocobalamin) inj 1,000 mcg 1,000 mcg, Intramuscular, [id number], First dose on Sun11/24/22 at 1145, Last dose on Sun09/28/23 at 1145, For 12 doses Given 01/05/2023 9:29 AM EDT 1,000 mcg Deltoid Left Upper Given 11/24/2022 11:03 AM EDT [...] the patient have Health Care Power of Machine Captain? No Code Status History Code Status Date Activated Date Inactivated Comments No Code 12/13/2021 6:43 AM 12/13/2021 1:23 PM This or tim reflects the patients wishes and were consensually agreed upon. Question Answer Comments Discussion of Advance Directives occurred with: Patient Does the patient have a Living Will? No Does the patient have Health Care Power of Machine Captain? No Care Teams Stock Worker And Deliverer Relationship Specialty Start Date End Date Annabella Victoria, [address] [place] [address] PCP - General Family Medicine 07/19/17 documented as of this encounter
--- OUTSIDE RECORDS SUMMARY | 2023-04-09 09:47 | External Medical Summary | Summary of Care ---
Author Name Unknown Organization [facility] Address [address] [place] [address] Phone [phone] Care Team Providers Care Director Corporate Sales Name Role Phone Annabella Victoria DO Primary Care Provider [phone] Reason for Visit * Reason Comments Medical Nutrition Therapy Follow Up Encounter Details Date Type Department Care Team Description 11/29/2022 Nutrition Services Nutrition, [facility] [address] [place] [id number] Monica Perry RDN [address] [place] [address] Poor appetite*; Type 2 diabetes mellitus with hemoglobin A1c goal of less than 8.0% ([facility]); Type 2 diabetes mellitus without complication, without long-term current use of insulin ([facility]); Dyslipidemia; HTN, goal below 140/90; Osteoporosis with symptom management only Allergies Active Allergy Reactions Severity Noted Date Comments Pollen Other (Please comment) 03/22/2016 Itchy, inflamed eyes Penicillins Rash 03/22/2016 Sulfa Antibiotics Nausea/vomiting 03/22/2016 documented as of this encounter (statuses as of 11/29/2022) Medications Medication Sig Dispensed Refills Start Date [...] [facility]) Test Blood sugar one to two times [...] breast (HCC),CLL (chronic lymphocytic leukemia) ([facility]) Test Blood sugar one to two times per day. E11.9 200 Strip 2 11/02/2022 Active Sodium Fluoride 1.1 % Dental Cream [place] onto teeth every night at bedtime. 0 Active Nystatin-Triamcinolon e 718858-3.1 UNIT/GM-% External Cream (Mycolog) APPLY TOPICALLY 4 TIMES DAILY FOR RASH UNDER BREAST 0 10/30/2022 Active SSD 1 % External Cream APPLY 1.5MM THICKNESS TWICE DAILY FOR RADIATIONS DERMATITIS 0 11/13/2022 Active Mirtazapine 15 MG Oral Tablet (Remeron)Indications: Adjustment disorder with depressed mood Take 1 Tablet by mouth at bedtime. 30 Tablet 5 11/24/2022 Active Hospital, Clinic, or Other Facility Administered Medication Ordered Dose Route Frequency Start Date End Date Status vitamin b-12 (Cyanocobalamin) inj 1,000 mcgIndications:B12 deficiency 1000 mcg IM [id number] 11/24/2022 10/26/2023 Active documented as of this encounter (statuses as of 11/29/2022) Active Problems Problem Noted Date Osteoporosis with [...] sinus infections 05/25/2016 Overview: 05/23>Saw ENT in [place]; [place] 2 yrs ago- moved [place] -02/19--zpak,pred 03/22, pred 04/21;doxy 05/23--not on nasacort daily-resume and + claritin Preoperative general physical examinatio n 05/25/2016 Overview: 07/21-l-m risk--0.3/-1.7--rpt 3 yrs Type 2 diabetes mellitus wit hout complication, without long-term current use of insulin 04/10/2016 HTN, goal below 140/90 04/10/2016 Dyslipidemia 04/10/2016 Acquired hypothyroidism 04/10/2016 documented as of this encounter (statuses as of 11/29/2022) Resolved Problems Problem Noted Date Resolved Date Mammographic microcalcification 10/19/2016 08/13/2018 Overview: 12/21--scattered fibroglandular densities (25% - 50% fibroglandular), dystrophic ca+-rpt 1 yr Closed fracture of proximal end of right humerus with routine healing 10/19/2016 07/23/2018 Overview: 07/25/16 Encounter for screening mammogram for breast can cer 05/25/2016 07/23/2018 Overview: 05/2015 Ribera Screen for colon cancer 05/25/2016 07/24/19 19 Overview: csope-- 10/05/14- nl, gr 1 IH> At [facility]--rpt 10 yrs documented as of this encounter (statuses as of 11/29/2022) Immunizations Name Administration Dates Next Due COVID-19 [...] - Inhaled Oxygen Concentration - - Weight 60.2 kg (132 lb 11.2 oz) 11/29/2022 8:33 AM EDT Height 149.9 cm (4' 11") 11/29/2022 8:33 AM EDT Body Mass Index 26.8 11/29/2022 8:33 AM EDT documented in this encounter Patient Instructions * Patient Instructions* Monica Perry RDN - 11/29/2022 9:02 AM EDT Patient will aim for 2 servings of dairy food daily. Patient will aim for 2 servings of a high-protein supplement. Also keep protein powder on hand to mix in soft foods-hot cereal or cream soup or pudding or mashed potatoes. Patient will have frozen meals on hand to heat up when you don't feel like preparing a meal. Patient will continue taking a multi-vitamin. Try to get one for older adults (will have a higher amount of calcium). documented in this encounter Progress Notes * Monica Perry RDN - 11/29/2022 8:33 AM EDT NUTRITION FOLLOW-UP NOTE - OUTPATIENT [facility] Name: Sera Plata [facility]: 11/29[facility]2022 Time: 8:33 AM Patient was identified by name and date. Patient was seen [id number] in the clinic. Reason for Nutrition Follow-up: Type 2 Diabetes, poor appetite NUTRITION ASSESSMENT: Client History Patient is a 81 year old female being seen for above issues. She is accompanied by daughter. Patient recently finished her radiation treatments. Support System: Child Barriers to Learning: Forgetful, loss of concentration per pt Special Education Needs: None Physical Activity: Sedentary Food/Nutrition-Related History Describes typical diet history/24 hr recall Breakfast: 10 AM Yogurt, Boost-1/2-3/4 Snacks: None Lunch: skips Snacks: None Dinner: 6-6:30 PM 2 ears corn, zucchini, cucumbers in vinegar Snacks: Ice cream bar Drinks: Water, occasionally diet root beer Restaurant meals: once a week Diet Recall/Food Logs Indicate: AREAS FOR IMPROVEMENT: Poor meal distribution Inadequate fiber intake Inadequate fruit and vegetable intake Inadequate calorie intake Inadequate protein intake POSITIVE: Portion control Uses calorie free beverages Food and Nutrient Intake and other pertinent information: Patient reports her appetite is still poor. Denies GI distress but admits to some mild difficulty chewing. States she will be having 4 teeth extracted soon but uncertain exactly when as she needs to be cleared medically to have this done perdaughter. Patient states her son will be helping her after extraction. Daughter states she will begoing back to [place] in another month. Patient complains of lack of taste with most foods; has not noticed any particular foods that taste worse or better than others. She denies bowel issues, except an episode of diarrhea ~ once a month. Patient is now using her newer meter to check glucose levels- checks twice daily, once in AM (FBS) and once at bedtime. FBS levels range from 89-249 and HS levels 144-357. Daughter states pt had a recent bone density scan which revealed high risk for fracture. Daughter states she is occasionally offering protein powder mixed in foods for pt. Medications Changes/Updates: Addition of Mirtazapine (remeron) per pt Nutrition-Focused Physical Findings Overall appearance: WN Nutrition Focused Physical Exam not completed (see this section from last visit of 09/15/2022) Anthropometric Measurements Current Weight: Wt Readings from Last 1 Encounters: 11/29/22 60.2 kg (132 lb 11.2 oz) Wt Readings from Last 4 Encounters: 11/29/22 60.2 kg (132 lb 11.2 oz) 11/24/22 60 kg (132 lb 3.2 oz) 09/15/22 61.3 kg (135 lb 1.6 oz) 09/12/22 62 kg (136 lb 11.2 oz) Weight Change: decreased by 2.5 pounds in the past 2 1/2 months BMI Readings from Last 1 Encounters: 11/29/22 26.80 kg/m Biochemical Data, Medical Tests, and Procedures Latest Reference Range & Units 11/14/22 11:10 Vitamin B12 232 - 1,245 pg/mL 196 (L) (L): Data is abnormally low Latest Reference Range & Units 11/14/22 11:10 25-Hydroxy Vitamin D >19 ng/mL 59 Above levels reviewed and shared with pt. Previous Nutrition Diagnosis: Suboptimal protein-energy intake related to Poor meal distribution, Inadequate fluid intake, Inadequate protein intake as evidenced by Reported diet and/or activity recall Altered nutrition-related laboratory values related to diabetes and multiple recent medical stressors as evidenced by elevated glucose levels and elevated Hgb A1c level. Progress towards goals: Patient will take a MVI with minerals supplement (Centrum Silver generic brand is fine). MET Patient will decrease portion of banana to 1/2 at breakfast or whole banana without grapefruit. MET Patient will use new meter to check glucose levels. Continuing checking glucose levels as instructed. MET Patient will consume 1 serving of high-protein supplement at least twice daily. Partially MET CURRENT NUTRITION DIAGNOSIS Suboptimal protein-energy intake related to Poor meal distribution, Inadequate fiber intake, Inadequate fruit and vegetable intake, Inadequate calorie intake, Inadequate protein intake as evidenced by Reported diet and/or activity recall NUTRITION INTERVENTION: NUTRITION EDUCATION Initial/brief nutrition education NUTRITION COUNSELING Strategies Nutrition Prescription: Diet: Consistent Carbohydrate Good Nutrition High Protein High Calcium Daily Calorie Needs: 1500 Kcals Daily Protein Needs: 60-65 Grams protein Current Goals: Patient will aim for 2 servings of dairy food daily. Patient will aim for 2 servings of a high-protein supplement. Also keep protein powder on hand to mix in soft foods-hot cereal or cream soup or pudding or mashed potatoes. Patient will have frozen meals on hand to heat up when you don't feel like preparing a meal. Patient will continue taking a multi-vitamin. Try to get one for older adults (will have a higher amount of calcium). Dietitian Action: Encouraged patient to consume at least 2 servings of high- dairy foods/day; discussed recommendations of 1200 mg daily and reviewed calcium content of some foods. Encouraged her to be sure to take a MVI supplement for older adults (that contain a significant amount of calcium). Encouraged her to continue using protein powder and mixing in smooth, soft foods. Encouraged pt to aim for 2 servings of high-protein liquid supplements daily, especially after her teeth extraction. Encouraged her to have frozen meals on hand for evening meal if pt doesn't feel like preparing a meal. Reviewed recommended portion size of high-protein food for evening meal-3 ounces cooked. Good Nutrition Education: Calcium Fact Sheet & Supplements Recommendations to Ordering Provider: Continue current plan of nutrition care. NUTRITION MONITORING AND EVALUATION: The following will be monitored and evaluated at the next visit: Monitor weight. Monitor goals and progress. Plan: Patient scheduled to return in 3 months; MARIAHN encouraged participant to reach out with any questions through the My Chart portal. 30 minutes Medical Nutrition Therapy Time In: 08 (11/29/22 1328) Time Out: 09 (11/29/221327) Monica Perry RDN NUTRITION [facility] documented in this encounter Plan of Treatment Upcoming Encounters Date Type Specialty Care Team Description 12/13/2022 Office Visit Hematology Oncology Macey Cruz MD [address] [facility] [place] [address] 12/18/2022 Office Visit Pharmacy Pharmacist2, [facility] [address] [facility] [place] [address] 01/05/2023 Office Visit Family Medicine Jacey Dunn CRNP [address] [place] [address] 02/01/2023 Office Visit General Surgery Myke Pulliam MD [address] [place] [address] 03/02/2023 Nutrition Services Nutrition Services Monica Perry RDN [address] [place] [address] 03/14/2023 Office Visit Family Medicine Annabella Victoria DO [address] [place] [address] 03/27/2023 Office Visit Cardiology Kimmy López DO [address] [place] [address] 09/25/2023 Cardiac Studies Cardiology [address] [place] [address] Health Maintenance Due Date Last Done Comments [...] D LEVEL ONCE IN A LIFETIME-USE SMARTSET# [id number] Completed 11/14/2022 GARDASIL-HPV IMMUNIZATION SERIES Aged Out No longer eligible based on patient's age to complete this topic Hepatitis B Aged Out No longer eligi ble based on patient's age to complete this topic MENINGOCOCCAL (MENACTRA/MENVEO) Aged Out No longer eligible based on patient's age to complete this topic documented as of this encounter Medical Devices Implanted Type Area Exchange Architect Device Identifier Shelf Expiration Date Model / Serial / Lot Lens Intraoc 19.0 - [id number] - [id number] Implanted:Qty: 1 on 12/13/2021 by Mitchell Guzman MD at [facility] Left: Eye [employer] 06/06/2026 [id number] / [id number] / [id number] Lens Intraoc 19.0 - [id number] - [id number] Implanted:Qty: 1 on 12/27/2021 by Mitchell Guzman MD at [facility] Right: Eye [employer] 06/06/2026 [id number] / [id number] / [id number] documented as of this encounter Visit Diagnoses Diagnosis Poor appetite- Primary Anorexia Type 2 diabetes mellitus with hemoglobin A1c goal of less than 8.0% (HCC) Type 2 diabetes mellitus without complication, without long-term current use of insulin (HCC) Dyslipidemia Other and unspecified hyperlipidemia HTN, goal below 140/90 Unspecified essential hypertension Osteoporosis with symptom management only Osteoporosis, unspecified documented in this encounter Advance Directives [...] the patient have Health Care Power of Radiation Oncologist? No Code Status History Code Status Date Activated Date Inactivated Comments No Code 12/13/2021 6:43 AM 12/13/2021 1:23 PM This or tim reflects the patients wishes and were consensually agreed upon. Question Answer Comments Discussion of Advance Directives occurred with: Patient Does the patient have a Living Will? No Does the patient have Health Care Power of Radiation Oncologist? No Care Teams Director Corporate Sales Relationship Specialty Start Date End Date Annabella Victoria, DO [address] [place] [address] PCP - General Family Medicine 07/19/17 documented as of this encounter
--- OUTSIDE RECORDS SUMMARY | 2023-04-09 09:47 | External Medical Summary ---
Author Name Unknown Address Unknown Organization K01:[facility] [address] [place] [address] Laboratory Report Ordering Provider Test Date Status NAN MALIN 12/13/2022 10:41:14 Final Observation Date Value Abnormality Reference (Units ) Status LDH 12/13/2022 10:41:14 165 <=250 (U/L ) Final Performing Location [facility] [address] [place] [address]
--- OUTSIDE RECORDS SUMMARY | 2023-04-09 09:47 | External Medical Summary | Summary of Care ---
Author Name Unknown Organization [facility] Address [address] [place] [address] Phone [phone] Care Team Providers Care Mechanical Inspector Name Role Phone Annabella Victoria DO Primary Care Provider [phone] Reason for Visit * Reason Comments Follow Up 3m Encounter Details Date Type Department Care Team Description 12/13/2022 Office Visit Hematology/Oncology [place] [place] [address] [facility] [place] [address] Macey Cruz MD [address] [facility] [place] [address] Infiltrating ductal carcinoma of left breast (HCC)*; CLL (chronic lymphocytic leukemia) ([facility]) Allergies Active Allergy Reactions Severity [...] A1c goal of less than 8.0% ([facility]) Inject under the skin 1.5 mg once a week . Do not start before April 03, 2022. 6 mL 3 04/03/2022 Active OneTouch Verio Reflect w/Device KitIndications:Type 2 diabetes mellitus with hemoglobin A1c goal of less than 8.0% ([facility]) Use as directed. Test Blood sugar one to two times per day. E11.9 1 Kit 0 07/03/2022 Active OneTouch Delica Lancets 33GIndications:Type 2 diabetes mellitus with hemoglobin A1c goal of less than 8.0% ([facility]) Test Blood sugar one to two [...] left breast (HCC),CLL (chronic lymphocytic leukemia) ([facility]) Take 1 Tablet by mouth in the morning. 90 Tablet 5 09/12/2022 Active Multivitamin Adults 50+ Oral Tablet Take 1 Tablet by mouth daily. 0 Active metFORMIN HCl ER 500 MG Oral Tablet Extended Release 24 Hour (Glucophage XR)Indications:Type 2 diabetes mellitus without complication, without long-term current use of insulin ([facility]) Take 1 Tablet by mouth 2 times a day with morning and evening meals. Take in addition to medication in pill pack until completed. 14 Tablet 0 10/09/2022 Active metFORMIN HCl ER 500 MG Oral Tablet Extended Release 24 Hour (Glucophage XR)Indications:Type 2 diabetes mellitus with hemoglobin A1c goal of less than 8.0% ([facility]),Type 2 diabetes mellitus without complication, without long-term current use of insulin ([facility]) Take 2 Tablets by mouth 2 times a day with morning and evening meals. 360 Tablet 3 10/09/2022 Active OneTouch Verio In Vitro Strip (Glucose Blood)Indications:Typ e 2 diabetes mellitus with hemoglobin A1c goal of less than 8.0% ([facility]) Test Blood sugar one to two times per day. E11.9 200 Strip 2 11/02/2022 Active Sodium Fluoride 1.1 % Dental Cream [place] onto teeth every night at bedtime. 0 Active Nystatin-Triamcinolon e 112356-2.1 UNIT/GM-% External Cream (Mycolog) APPLY TOPICALLY 4 [...] left breast (HCC),CLL (chronic lymphocytic leukemia) ([facility]) Take 1 Tablet by mouth in the morning. 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 [...] sinus infections 05/25/2016 Overview: 05/23>Saw ENT in [place]; CT 2 yrs ago- moved [place] -02/19--zpak,pred [...] csope-- 10/05/14- nl, gr 1 IH> At [place]--rpt 10 yrs documented as of this encounter [...] Sign Reading Time Taken Comments Blood Pressure 156/82 12/13/2022 10:04 AM EDT Pulse 77 12/13/2022 10:04 AM EDT Temperature 36.8 C (98.3 F) 12/13/2022 10:04 AM E DT Respiratory Rate 16 12/13/2022 10:04 AM EDT Oxygen Saturation 95% 12/13/2022 10:04 AM EDT Inhaled Oxygen Concentration - - Weight 59.2 kg (130 lb 9.6 oz) 12/13/2022 10:04 AM EDT Height - - Body Mass Index 26.38 11/29/2022 8:33 AM EDT documented in this encounter Progress Notes * Macey Cruz MD - 12/13/2022 9:50 AM EDT Images from the original note were not included. Outpatient Consult Note Data Source: Patient, Epic record. Data Source: Patient, Epic record. 12/13/2022 9:50 AM [place] [id number] 81 year old Patient Encounter: HEMATOLOGY/ONCOLOGY [facility] Cancer Diagnosis: - Left breast cancer, status post partial mastectomy and sentinel lymph biopsy. She has stage pT1 pN0 disease with ER/VA positive and HER2 Otis negative. 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 ER/VA was positive and HER2 Otis negative. Final Diagnosis A. Breast, Left, Left breast 1:00 4cm FN, core biopsy: Invasive carcinoma, no special type, grade 2 Focal ductal in-situ, nuclear grade 2. Estrogen Receptor (ER) protein expression is STRONGLY POSITIVE Progesterone Receptor (VA) protein expression is STRONGLY POSITIVE HER2 oncoprotein [...] Examined (sentinel and non-sentinel) 4 Number of Warwick Nodes Examined 4 pT Category pT1c Regional Lymph Nodes Modifier (sn): Warwick node(s) evaluated. pN Category pN0 Patient was [...] significant population of monoclonal B cells,favor a highMBL (monoclonal B cell lymphocytosis, CLL[chronic lymphocytic leukemia]-like phenotype). See Comment. COMMENT: The findings can be seen in high count MBL, B cell CLL or other underlying other B cell proliferativedisorder. If clinically the patient is found to have no history of CLL, no associated lymphadenopathy, organomegaly, extramedullary involvement or any other features of lymphoproliferative disorder, the diagnosis of high count MBL forthe patient is favored. The high count MBL has biologic features identical to those of low-stage (Torres stage 0) CLL, and progresses to dina leukemia requiring therapy at an annual rate of 1- 2% by 2016 WHO. IGVH Status UNMUTATED Social history she denies any smoking or drinking. Family history significant for father who of lung cancer. He used to be smoker. Her also of the metastatic melanoma. Interval History: She completed radiation therapy on 11/17/2022. She did not start taking letrozole yet. Overall clinically she is stable without any new symptoms. LABS/IMAGING: Last DEXA bone density scan was done on 10/18/2022 which shows the risk of fracture is high, 10 year absolute risk of major fracture is at least 20% and of risk for hip fracture is at least 3%. Results for orders placed or performed in visit on 11/14/22 25-HYDROXY VITAMIN D Result Value Ref Range 25-Hydroxy Vitamin D 59 >19 ng/mL VITAMIN B12 Result Value Ref Range Vitamin B12 196 (L) 232 - 1,245 pg/mL She will be receiving vitamin B12 injection with Dr. Victoria REVIEW OF SYSTEMS: General: No Fever, chills, [...] bleeding Genitourinary: Denies Hematuria or dysuria Musculoskeletal: Generalized weakness and joint pain Skin: No skin rash or lesions noted Neurologic: No numbness, weakness, neuropathic pain or change in cognitive function Psychiatric: No vegetative signs of depression Endocrine: No symptoms of hypothyroidism or hyperglycemia Hematologic: No bleeding or lymph nodes noted As mentioned above, all of the systems were reviewed in full and are unremarkable. Past Medical History: Diagnosis Date Breast cancer (HCC) 2022 Left breast Closed fracture of proximal end of right humerus with routine healing 10/19/2016 07/25/16 Diabetes (HCC) Dyslipidemia Hypertension Hypothyroid Current Outpatient Medications Medication Sig Dispense Refill Omeprazole Magnesium 20 MG Oral Tablet Delayed Release (PriLOSEC OTC) Take 1 Tablet by mouth asneeded for Heartburn. ProAir HFA 108 (90 Base) MCG/ACT Inhalation Aerosol Solution Inhale 2 Puffs by mouth every 4 hours as needed for Wheezing. 18 g 1 Trulicity 1.5 MG/0.5ML Subcutaneous Solution Pen-injector (Dulaglutide) Inject under the skin 1.5 mg once a week . Do not start before April 03, 2022. 6 mL 3 [employer] Reflect w/Device Kit Use as directed. Test Blood sugar one to two times per day.E11.9 1 Kit 0 [employer] Lancets 33G Test Blood sugar one to two times per day. E11.9 200 Each 3 Macular Health Formula Oral Capsule Take by mouth. Levothyroxine Sodium 50 MCG Oral Tablet (Levoxyl) (at least 30 min prior to breakfast or other meds) 90 Tablet 3 Aspirin 81 MG Oral Tablet Chewable Take 1 Tablet by mouth in the morning. with food.. 90 Tablet3 Losartan Potassium 100 MG Oral Tablet (Cozaar) Take 1 Tablet by mouth in the morning. 90 Tablet3 amLODIPine Besylate 2.5 MG Oral Tablet (Norvasc) Take 1 Tablet by mouth in the morning. 90 Tablet 3 Metoprolol Succinate ER 50 MG Oral Tablet Extended Release 24 Hour (toPROL XL) Take 1 Tablet bymouth in the morning. 90 Tablet 3 Pravastatin Sodium 40 MG Oral Tablet (Pravachol) Take 1 Tablet by mouth in the morning. 90 Tablet 3 Letrozole 2.5 MG Oral Tablet (Femara) Take 1 Tablet by mouth in the morning. 90 Tablet 5 Multivitamin Adults 50+ Oral Tablet Take 1 Tablet by mouth daily. metFORMIN HCl ER 500 MG Oral Tablet Extended Release 24 Hour (Glucophage XR) Take 1 Tablet by mouth 2 times a day with morning and evening meals. Take in addition to medication in pill pack untilcompleted. 14 Tablet 0 metFORMIN HCl ER 500 MG Oral Tablet Extended Release 24 Hour (Glucophage XR) Take 2 Tablets by mouth 2 times a day with morning and evening meals. 360 Tablet 3 [employer] In Vitro Strip (Glucose Blood) Test Blood sugar one to two times per day. E11.9 200 Strip 2 Sodium Fluoride 1.1 % Dental Cream [place] onto teeth every night at bedtime. Nystatin-Triamcinolone 493013-5.1 UNIT/GM-% External Cream (Mycolog) APPLY TOPICALLY 4 TIMES DAILY FOR RASH UNDER BREAST SSD 1 % External Cream APPLY 1.5MM THICKNESS TWICE DAILY FOR RADIATIONS DERMATITIS Mirtazapine 15 MG Oral Tablet (Remeron) Take 1 Tablet by mouth at bedtime. 30 Tablet 5 Current Facility-Administered Medications Medication Dose Route Frequency Provider Last Rate Last Admin vitamin b-12 (Cyanocobalamin) inj 1,000 mcg 1,000 mcg Intramuscular Q4 Weeks CASEY Mosqueda 1,000 mcg at 11/24/22 1103 Social History Tobacco Use Smoking status: Never Smokeless tobacco: Never Vaping Use Vaping Use: Never used Substance Use Topics Alcohol use: Yes Comment: rarely Drug use: No Review of patient's allergies indicates: Allergen Reactions Hay Fever [Pollen] Other (Please comment) Itchy, inflamed eyes Penicillins Rash Sulfa Antibiotics Nausea/vomiting PHYSICAL EXAMINATION: General Appearance: Healthy appearing patient in no acute distress There were no vitals taken for this visit. Vitals reviewed. HEENT: No oral or pharyngeal [...] Extremeties: Good pulses bilaterally, no peripheral edema. Skin: Normal skin tone with no rash, petechiae, ecchymosis noted. Musculoskeletal: No pain on palpation over bony prominence, no edema, no evidence of gout, no jointor bony deformity ASSESSMENT: 81-year-old female with a past medical history significant for hypothyroidism, hypertension, cardiovascular disease was recently diagnosis the left breast cancer which was found on screening mammogram. She underwent partial mastectomy and sentinel lymph node biopsy and pathology is consistent with 1.7 cm invasive ductal carcinoma, no special type, grade 3 with ER/VA positive and HER2 Otis negative. She is [...] I will proceed with 1st dose of Prolia. Discussed with the patient and daughter about the diagnosis and prognosis reviewed all the available blood tests and DEXA bone density scan reports with her. Discussed with him about the benefit, risk, side effect toxicity of tamoxifen detailed discussion she agreed to take the tamoxifen. Prescription was sent to the pharmacy. PLAN: Blood test today including CBC, CMP, phosphorus level and LDH. She will return to clinic for follow-up in 3 months with CBC, CMP and LDH. The [...] in this encounter Nursing Notes * Torie Shon Davidson, [facility] - 12/13/2022 10:05 AM EDT Patient identifed by name and birthdate Do you have any concerns about pain management for today's visit? No Living Will or Advance Directive for Health Care as noted on the problem list. [facility] is a way you can talk to your provider on line through e-mail. Would you like to sign up? I can activate it for you? ALREADY ACTIVE Filed Vitals: 12/13/22 1004 BP: 156/82 Pulse: 77 Resp: 16 Temp: 36.8 C (98.3 F) TempSrc: Tympanic SpO2: 95% Weight: 59.2 kg (130 lb 9.6 oz) Patient was instructed to not get up [...] Team Description 12/18/2022 Office Visit Pharmacy Pharmacist2, [facility] [address] [place] [address] 01/05/2023 Office Visit Family Medicine Jacey Dunn CRNP [address] [place] [address] 02/01/2023 Office Visit General Surgery Myke Pulliam MD [address] [place] [address] 03/02/2023 Nutrition Services Nutrition Services Monica Perry RDN [address] [place] [address] 03/14/2023 Laboratory Laboratory [facility] [address] [place] [address] 03/14/2023 Office Visit Family Medicine Annabella Victoria DO [address] [place] [address] 03/21/2023 Office Visit Hematology Oncology Macey Cruz MD [address] [place] [address] 03/27/2023 Office Visit Cardiology Kimmy López DO [address] [place] [id number] 09/25/2023 Cardiac Studies Cardiology [facility], [address] [place] [address] Pending Results Name Type Priority Associated Diagnoses Date /Time COMPREHENSIVE METABOLIC PANEL Lab Routine Infiltrating ductal carcinoma of left breast (HCC) CLL (chronic lymphocytic leukemia) (HCC) 12/13/2022 10:41 AM EDT LD Lab Routine Infiltrating ductal carcinoma of left breast (HCC) CLL (chronic lymphocytic leukemia) (HCC) 12/13/2022 10:41 AM EDT Scheduled Orders Name Type Priority Associated Diagnoses Orde r Schedule CBC WITH WBC DIFFERENTIAL Lab Routine Infiltrating ductal carcinoma of left breast (HCC) CLL (chronic lymphocytic leukemia) (HCC) Ordered: 12/13/2022 COMPREHENSIVE METABOLIC PANEL Lab Routine Infiltrating ductal carcinoma of left breast (HCC) CLL (chronic lymphocytic leukemia) (HCC) Ordered: 12/13/2022 LD Lab Routine Infiltrating ductal carcinoma of left breast (HCC) CLL (chronic lymphocytic leukemia) (HCC) Ordered: 12/13/2022 COMPREHENSIVE METABOLIC PANEL Lab Routine Infiltrating ductal carcinoma of left breast (HCC) CLL (chronic lymphocytic leukemia) (HCC) Expected: 04/09/2023, Expires: 11/27/2023 LD Lab Routine Infiltrating ductal carcinoma of left breast (HCC) CLL (chronic lymphocytic leukemia) (HCC) Expected: 04/09/2023, Expires: 11/27/2023 Health Maintenance Due Date Last Done Comments [...] D LEVEL ONCE IN A LIFETIME-USE SMARTSET# [id number] Completed 11/14/2022 GARDASIL-HPV IMMUNIZATION SERIES Aged Out No longer eligible based on patient's age to complete this topic Hepatitis B Aged Out No longer eligi ble based on patient's age to complete this topic MENINGOCOCCAL (MENACTRA/MENVEO) Aged Out No longer eligible based on patient's age to complete this topic documented as of this encounter Medical Devices Implanted Type Area Ore Dressing Engineer Device Identifier Shelf Expiration Date Model / Serial / Lot Lens Intraoc 19.0 - [id number] - [id number] Implanted:Qty: 1 on 12/13/2021 by Mitchell Guzman MD at OR [facility] Left: Eye [employer] 06/06/2026 [id number] / [id number] / [id number] Lens Intraoc 19.0 - [id number] - [id number] Implanted:Qty: 1 on 12/27/2021 by Mitchell Guzman MD at OR [facility] Right: Eye [employer]OM[employer] 06/06/2026 [id number] / [id number] / [id number] documented as of this encounter Visit Diagnoses Diagnosis Infiltrating ductal carcinoma of left breast (HCC)- Primary CLL (chronic lymphocytic leukemia) (HCC) Chronic lymphoid [...] the patient have Health Care Power of Supervisor [place]? No Code Status History Code Status Date Activated Date Inactivated Comments No Code 12/13/2021 6:43 AM 12/13/2021 1:23 PM This or tim reflects the patients wishes and were consensually agreed upon. Question Answer Comments Discussion of Advance Directives occurred with: Patient Does the patient have a Living Will? No Does the patient have Health Care Power of Supervisor [place]? No Care Teams Mechanical Inspector Relationship Specialty Start Date End Date Annabella Victoria, DO [address] [place] [address] PCP - General Family Medicine 07/19/17 documented as of this encounter
--- OUTSIDE RECORDS SUMMARY | 2023-04-09 09:47 | External Medical Summary ---
Author Name Unknown Address Unknown Organization [id number]:[facility] [place] [address] Laboratory Report Ordering Provider Test Date Status NAN MALIN 12/13/2022 10:41:14 Final Observation Date Value Abnormality Reference (Units ) Status SYNC LEUKOCYTES IN BLOOD BY AUTOMATED COUNT 12/13/2022 10:41:14 11.06 Above high normal 4.00-10.80 (K/uL) Final Segs 12/13/2022 10:41:14 65.6 40.0-75.0 (%) Final Lymphs % 12/13/2022 10:41:14 24.0 18.0-42.0 (%) Final Monos 12/13/2022 10:41:14 7.8 1.0-11.0 (%) Final Eosinophils 12/13/2022 10:41:14 2.3 0.0-6.0 (%) Final Basos 12/13/2022 10:41:14 0.3 0.0-2.0 (%) Final Absolute Segs 12/13/2022 10:41:14 7.27 1.80-7.70 (K/uL) Final Lymphs, absolute 12/13/2022 10:41:14 2.65 1.00-4.80 (K/ul) Final Monos, Abs 12/13/2022 10:41:14 0.86 0.00-1.10 (K/uL) Final Eos, Abs 12/13/2022 10:41:14 0.25 0.00-0.70 (K/uL) Final Basos, Abs 12/13/2022 10:41:14 0.03 0.00-0.20 (K/uL) Final Performing Location [facility] [place] [address]
--- OUTSIDE RECORDS SUMMARY | 2023-04-09 09:47 | External Medical Summary | Summary of Care ---
Author Name Unknown Organization [facility] Address [address] [place] [address] Phone [phone] Care Team Providers Care Adjunct History Instructor Name Role Phone Annabella Victoria DO Primary Care Provider [phone] Reason for Visit * Reason Onset Date Comments Test Results Lab 10/23/2022 Encounter Details Date Type Department Care Team Description 10/23/2022 Telephone Hematology/Oncology [facility] [place] [address] [facility] [place] [address] Macey Cheatham MD [address] [place] [address] Test Results Lab Allergies Active Allergy Reactions Severity Noted Date Comments Pollen Other (Please comment) 03/22/2016 Itchy, inflamed eyes Penicillins Rash 03/22/2016 Sulfa Antibiotics Nausea/vomiting 03/22/2016 documented as of this encounter (statuses as of 11/28/2022) Medications Medication Sig Dispensed Refills Start Date [...] 8.0% ([facility]) Test Blood sugar one to two times [...] 09/06/2022 Active Letrozole 2.5 MG Oral Tablet (Femara)Indications [...] 8.0% ([facility]) Test Blood sugar one to two times per day. E11.9 200 Strip 3 07/03/2022 3 Discontinue d(Refill) documented as of this encounter (statuses as of 11/28/2022) Active Problems Problem Noted Date Osteoporosis with [...] sinus infections 05/25/2016 Overview: 05/23>Saw ENT in [place]; CT 2 yrs ago- moved [place] -02/19--zpak,pred 03/22, pred 04/21;doxy 05/23--not on nasacort daily-resume and + claritin Preoperative general physical examinatio n 05/25/2016 Overview: 07/21-l-m risk--0.3/-1.7--rpt 3 yrs Type 2 diabetes mellitus wit hout complication, without long-term current use of insulin 04/10/2016 HTN, goal below 140/90 04/10/2016 Dyslipidemia 04/10/2016 Acquired hypothyroidism 04/10/2016 documented as of this encounter (statuses as of 11/28/2022) Resolved Problems Problem Noted Date Resolved Date Mammographic microcalcification 10/19/2016 08/13/2018 Overview: 12/21--scattered fibroglandular densities (25% - 50% fibroglandular), dystrophic ca+-rpt 1 yr Closed fracture of proximal end of right humerus with routine healing 10/19/2016 07/23/2018 Overview: 07/25/16 Encounter for screening mammogram for breast can cer 05/25/2016 07/23/2018 Overview: 05/2015 [place] Screen for colon cancer 05/25/2016 07/24/19 19 Overview: csope-- 10/05/14- nl, gr 1 IH> At [place]--rpt 10 yrs documented as of this encounter (statuses as of 11/28/2022) Immunizations Name Administration Dates Next Due COVID-19 [...] encounter Miscellaneous Notes * Telephone Encounter - Tia Salmeron LPN [...] - 11/27/2022 1:27 PM EDT Spoke to Srea who handed the phone to daughter Deedee. Deedee gave information of Sera's new dentist in [employer] message. Notified Deedee that prolia wouldnot be [...] new dentist is Dee Dee Blum DMD, [facility] ([address] [place] [address]). Her phone number is [phone] and her fax number is [phone]. Called Dr. Blum's office, spoke to Salome, [...] like Tia to call back. Call back: [phone] * Telephone Encounter - Tia Salmeron LPN [...] of dentist is Dr. Matheus Rajput in [place]; office phone number is [phone] * Telephone Encounter - Tia Salmeron LPN - 11/15/2022 9:39 AM EDT Left message on daughter's phone since she has not read myG message. Need name of dentist to obtaindental clearance for prolia. * Telephone Encounter - Tia Salmeron LPN - 11/10/2022 11:13 AM EDT Patient's daughter read myG message * Telephone Encounter - Tia Salmeron LPN - 11/09/2022 10:46 AM EDT My [email or web address] message has not been read, attempted to [...] her dental workup " Placed order for [id number] lab CMP, phos and cbcd orders already [...] out 2 weeks ago. We contacted the remote encoding center manager's office to let them know as we [...] AM EDT Order received for prolia 60mg, [place] created and routed to provider for signature. [...] Encounters Date Type Specialty Care Team Description 11/29/2022 Nutrition Services Nutrition Services Monica Perry RDN [address] [place] [address] 12/13/2022 Office Visit Hematology Oncology Macey Cheatham MD [address] [facility] [place] [address] 12/18/2022 Office Visit Pharmacy Pharmacist, [facility] [address] [facility] [place] [address] 01/05/2023 Office Visit Family Medicine Jacey Dunn CRNP [address] [place] [address] 02/01/2023 Office Visit General Surgery Myke Pulliam MD [address] [place] [address] 03/14/2023 Office Visit Family Medicine Annabella Victoria DO [address] [place] [address] 03/27/2023 Office Visit Cardiology Kimmy López Leeanne, DO [address] [place] [address] 09/25/2023 Cardiac Studies Cardiology [facility], [facility] [address] [place] [address] Scheduled Orders Name Type Priority Associated Diagnoses [...] management only 2 Occurrences starting 10/23/2022 until 10/24/2023 VITAMIN B12 Lab Routine Infiltrating ductal carcinoma [...] and Over 09/07/2023 09/06/2022 GFR 09/12/2023 09/11/2022, 1010/2021, 08/24/2021, Additional history exists B-12 11/15/2023 11/14/2022, 04/0 09/2021, 11/02/2020, Additional history exists DXA Scan 10/18/2024 10/18/2022, 07/06, 02/19/2012 DTaP,Tdap,and Td Vaccines (2 - Td or Tdap) 05/26/2025 05/26/2015 Pneumococcal Vaccine: 65+ Years Completed 05/19/2014, 09/17/2012, 05/26/2002 Zoster Vaccines Completed 03/25/2019, 11/05, 02/01/2007 COVID-19 Vaccine Completed 02/03/2022, , 03/02/2021, Additional history exists VITAMIN D LEVEL ONCE IN A LIFETIME-USE SMARTSET# [id number] Completed 11/14/2022 GARDASIL-HPV IMMUNIZATION SERIES Aged Out No longer eligible based on patient's age to complete this topic Hepatitis B Aged Out No longer eligi ble based on patient's age to complete this topic MENINGOCOCCAL (MENACTRA/MENVEO) Aged Out No longer eligible based on patient's age to complete this topic documented as of this encounter Medical Devices Implanted Type Area Monitor And Storage Bin Tender Device Identifier Shelf Expiration Date Model / Serial / Lot Lens Intraoc 19.0 - [id number] - [id number] Implanted:Qty: 1 on 12/13/2021 by Mitchell Guzman MD at OR [facility] Left: Eye BAUSCH [employer] LOMB 06/06/2026 [id number] / [id number] / [id number] Lens Intraoc 19.0 - [id number] - [id number] Implanted:Qty: 1 on 12/27/2021 by Mitchell Guzman MD at OR [facility] Right: Eye BAUSCH & LOMB 06/06/2026 [id number] / [id number] / [id number] documented as of this encounter Visit Diagnoses [...] the patient have Health Care Power of Nonfarm Animal Caretaker? No Code Status History Code Status Date Activated Date Inactivated Comments No Code 12/13/2021 6:43 AM 12/13/2021 1:23 PM This or tim reflects the patients wishes and were consensually agreed upon. Question Answer Comments Discussion of Advance Directives occurred with: Patient Does the patient have a Living Will? No Does the patient have Health Care Power of Nonfarm Animal Caretaker? No Care Teams Adjunct History Instructor Relationship Specialty Start Date End Date Annabella Victoria, DO [address] [place] [address] PCP - General Family Medicine 07/19/17 documented as of this encounter
--- OUTSIDE RECORDS SUMMARY | 2023-04-09 09:47 | External Medical Summary ---
Author Name Unknown Address Unknown Organization K09:[facility] [address] [place] [address] Laboratory Report Ordering Provider Test Date Status NAN MALIN 12/13/2022 10:41:14 Final Observation Date Value Abnormality Reference (Units ) Status BUN 12/13/2022 10:41:14 14 6-20 (mg/dL) Final Creatinine 12/13/2022 10:41:14 0.9 0.5-1.0 (mg/dL) Final Glomerular filtration rate/1.73 sq M.predicted [Volume Rate/Area] in Serum, Plasma or Blood by Creatinine-based formula (CKD-EPI) 12/13/2022 10:41:14 61 >=60 (mL/min) Final eGFR is calculated based on the CKD-EPI 2020 equation SODIUM 12/13/2022 10:41:14 133 Below low normal 135 -146 (mmol/L) Final Potassium 12/13/2022 10:41:14 4.9 3.5-5.1 (m mol/L) Final Cl 12/13/2022 10:41:14 97 Below low normal 98- 107 (mmol/L) Final CO2 12/13/2022 10:41:14 25 22-32 (mmo l/L) Final Anion gap 12/13/2022 10:41:14 11 7-15 (mmol /L) Final Glucose 12/13/2022 10:41:14 316 Above high normal 70 -120 (mg/dL) Final Albumin 12/13/2022 10:41:14 3.6 Below low normal 3.8 -5.0 (g/dL) Final AST (Aspartate aminotransferase) 12/13/2022 10:41:14 29 10-35 (U/L) Fin al Alk Phos 12/13/2022 10:41:14 103 35-130 (U/ L) Final Bilirubin, Total 12/13/2022 10:41:14 0.4 <=1 .2 (mg/dL) Final Calcium 12/13/2022 10:41:14 10.1 8.4-10.2 ( mg/dL) Final Protein 12/13/2022 10:41:14 7.0 6.0-8.3 (g /dL) Final ALT (Alanine aminotransferase) 12/13/2022 10:41:14 32 10-35 (U/L) Cornell edmondson Performing Location [facility] [place] [address]
--- OUTSIDE RECORDS SUMMARY | 2023-04-09 09:47 | External Medical Summary | Summary of Care ---
Author Name Unknown Organization [facility] Address [address] [place] [address] Phone [phone] Care Team Providers Care Sociology Teacher Name Role Phone Annabella Victoria DO Primary Care Provider [phone] Reason for Visit * Reason Onset Date Comments Test Results Lab 10/23/2022 Encounter Details Date Type Department Care Team Description 10/23/2022 Telephone Hematology/Oncology [facility] [place] [address] [facility] [place] [address] Macey Cheatham MD [address] [place] [address] Test Results Lab Allergies Active Allergy Reactions Severity Noted Date Comments Pollen Other (Please comment) 03/22/2016 Itchy, inflamed eyes Penicillins Rash 03/22/2016 Sulfa Antibiotics Nausea/vomiting 03/22/2016 documented as of this encounter (statuses as of 12/05/2022) Medications Medication Sig Dispensed Refills Start Date [...] A1c goal of less than 8.0% ([facility]) Inject under the skin 1.5 mg once a week . Do not start before April 03, 2022. 6 mL 3 04/03/2022 Active OneTouch Verio Reflect w/Device KitIndications:Type 2 diabetes mellitus with hemoglobin A1c goal of less than 8.0% ([facility]) Use as directed. Test Blood sugar one to two times per day. E11.9 1 Kit 0 07/03/2022 Active OneTouch Delica Lancets 33GIndications:Type 2 diabetes mellitus with hemoglobin A1c goal of less than 8.0% ([facility]) Test Blood sugar one to two times [...] A1c goal of less than 8.0% ([facility]) Test Blood sugar one to two times per day. E11.9 200 Strip 3 07/03/2022 3 Discontinue d(Refill) documented as of this encounter (statuses as of 12/05/2022) Active Problems Problem Noted Date Osteoporosis with [...] sinus infections 05/25/2016 Overview: 05/23>Saw ENT in [place]; CT 2 yrs ago- moved [place] -02/19--zpak,pred 03/22, pred 04/21;doxy 05/23--not on nasacort daily-resume and + claritin Preoperative general physical examinatio n 05/25/2016 Overview: 07/21-l-m risk--0.3/-1.7--rpt 3 yrs Type 2 diabetes mellitus wit hout complication, without long-term current use of insulin 04/10/2016 HTN, goal below 140/90 04/10/2016 Dyslipidemia 04/10/2016 Acquired hypothyroidism 04/10/2016 documented as of this encounter (statuses as of 12/05/2022) Resolved Problems Problem Noted Date Resolved Date Mammographic microcalcification 10/19/2016 08/13/2018 Overview: 12/21--scattered fibroglandular densities (25% - 50% fibroglandular), dystrophic ca+-rpt 1 yr Closed fracture of proximal end of right humerus with routine healing 10/19/2016 07/23/2018 Overview: 07/25/16 Encounter for screening mammogram for breast can cer 05/25/2016 07/23/2018 Overview: 05/2015 [place] Screen for colon cancer 05/25/2016 07/24/19 19 Overview: csope-- 10/05/14- nl, gr 1 IH> At [place]--rpt 10 yrs documented as of this encounter (statuses as of 12/05/2022) Immunizations Name Administration Dates Next Due COVID-19 mRNA, LNP-s, No Pre serve, 2-Dose Series (Moderna) 07/06/2020,06/02/2020 Covid-19 Mrna, Lnp-s, No Preserve, Booster (Mode rna) 10/28/2021,03/02/2021 Covid-19, Mrna, Lnp-s, Pf, B ivalent, 30 Mcg, IM, 12 yrs and above (W[employer] Connect) 02/03/2022 Pneumococcal Conjugate Vacc, 13 Valent (Prevnar) [...] signed to Dr Blum's office, patient's dentist. [phone] * Telephone Encounter - Tia Salmeron LPN [...] gave information of Sera's new dentist in [employer] message. Notified Deedee that prolia wouldnot be [...] new dentist is Dee Dee Blum DMD, [facility] ([address] [place] [address]). Her phone number is [phone] and her fax number is [phone]. Called Dr. Blum's office, spoke to Salome, [...] like Tia to call back. Call back: [phone] * Telephone Encounter - Tia Salmeron LPN [...] of dentist is Dr. Matheus Rajput in [place]; office phone number is [phone] * Telephone Encounter - Tia Salmeron LPN - 11/15/2022 9:39 AM EDT Left message on daughter's phone since she has not read myG message. Need name of dentist to obtaindental clearance for prolia. * Telephone Encounter - Tia Salmeron LPN - 11/10/2022 11:13 AM EDT Patient's daughter read myG message * Telephone Encounter - Tia Salmeron LPN - 11/09/2022 10:46 AM EDT My [employer] message has not been read, attempted to [...] her dental workup " Placed order for [id number] lab CMP, phos and cbcd orders already [...] out 2 weeks ago. We contacted the sharepoint architect's office to let them know as we [...] AM EDT Order received for prolia 60mg, [place] created and routed to provider for signature. [...] Description 12/13/2022 Office Visit Hematology Oncology Macey Cheatham MD [address] [place] [address] 12/18/2022 Office Visit Pharmacy Pharmacist2, [facility] [address] [place] [address] 01/05/2023 Office Visit Family Medicine Jacey Dunn CRNP [address] [facility] [place] [address] 02/01/2023 Office Visit General Surgery Myke Pulliam MD [address] [place] [address] 03/02/2023 Nutrition Services Nutrition Services Monica Perry, RDN [address] [place] [address] 03/14/2023 Office Visit Family Medicine Annabella Victoria DO [address] [place] [address] 03/27/2023 Office Visit Cardiology Kimmy López, DO [address] [place] [address] 09/25/2023 Cardiac Studies Cardiology [facility]ia [facility] [address] [place] [address] Scheduled Orders Name Type Priority Associated Diagnoses [...] and Over 09/07/2023 09/06/2022 GFR 09/12/2023 09/11/2022, 10/10/2021, 08/24/2021, Additional history exists B-12 11/15/2023 11/14/2022, 04/0 09/2021, 11/02/2020, Additional history exists DXA Scan 10/18/2024 10/18/2022, 07/06, 02/19/2012 DTaP,Tdap,and Td Vaccines (2 - Td or Tdap) 05/26/2025 05/26/2015 Pneumococcal Vaccine: 65+ Years Completed 05/19/2014, 09/17/2012, 05/26/2002 Zoster Vaccines Completed 03/25/2019, 11/05, 02/01/2007 COVID-19 Vaccine Completed 02/03/2022, , 03/02/2021, Additional history exists VITAMIN D LEVEL ONCE IN A LIFETIME-USE SMARTSET# [id number] Completed 11/14/2022 GARDASIL-HPV IMMUNIZATION SERIES Aged Out No longer eligible based on patient's age to complete this topic Hepatitis B Aged Out No longer eligi ble based on patient's age to complete this topic MENINGOCOCCAL (MENACTRA/MENVEO) Aged Out No longer eligible based on patient's age to complete this topic documented as of this encounter Medical Devices Implanted Type Area Sales Agent Device Identifier Shelf Expiration Date Model / Serial / Lot Lens Intraoc 19.0 - [id number] - [id number] Implanted:Qty: 1 on 12/13/2021 by Mitchell Guzman MD at OR [facility] Left: Eye [employer]USCH [employer] LOMB 06/06/2026 [id number] / [id number] / [id number] Lens Intraoc 19.0 - [id number] - [id number] Implanted:Qty: 1 on 12/27/2021 by Mitchell Guzman MD at OR [facility] Right: Eye BAUSCH & LOMB 06/06/2026 [id number] / [id number] / [id number] documented as of this encounter Visit Diagnoses [...] the patient have Health Care Power of Frame Table Operator? No Code Status History Code Status Date Activated Date Inactivated Comments No Code 12/13/2021 6:43 AM 12/13/2021 1:23 PM This or tim reflects the patients wishes and were consensually agreed upon. Question Answer Comments Discussion of Advance Directives occurred with: Patient Does the patient have a Living Will? No Does the patient have Health Care Power of Frame Table Operator? No Care Teams Sociology Teacher Relationship Specialty Start Date End Date Annabella Victoria, [address] [place] [address] PCP - General Family Medicine 07/19/17 documented as of this encounter
--- OUTSIDE RECORDS SUMMARY | 2023-04-09 09:47 | External Medical Summary ---
Author Name Unknown Address Unknown Organization K09:[facility] [place] [address] Laboratory Report Ordering Provider Test Date Status NAN MALIN 12/13/2022 10:41:14 Final Observation Date Value Abnormality Reference (Units ) Status WBC, Total 12/13/2022 10:41:14 11.06 Above high normal 4 .00-10.80 (K/uL) Final RBC 12/13/2022 10:41:14 4.84 3.85-5.15 (M/uL) Final Hemoglobin 12/13/2022 10:41:14 13.7 12.0-15.3 (g/dL) Final HCT 12/13/2022 10:41:14 42.6 36.0-45.2 (%) Final MCV 12/13/2022 10:41:14 88.0 81.5-97.5 (fL) Final MCH 12/13/2022 10:41:14 28.3 27.0-34.0 (pg) Final MCHC 12/13/2022 10:41:14 32.2 32.0-36.0 (g/dL) Final RDW 12/13/2022 10:41:14 13.8 11.5-15.5 (%) Final Platelets 12/13/2022 10:41:14 246 140-400 (K /uL) Final MPV 12/13/2022 10:41:14 10.6 6.6-11.1 ( fL) Final Performing Location [facility] [place] [address]
--- OUTSIDE RECORDS SUMMARY | 2023-04-09 09:47 | External Medical Summary | Summary of Care ---
Author Name Unknown Organization [facility] Address [address] [place] [address] Phone [phone] Care Team Providers Care Commercial Intern Name Role Phone Annabella Victoria DO Primary Care Provider [phone] Encounter Details Date Type Department Care Team Description 11/28/2022 Orders Only Hematology/Oncology [facility] [place] [address] [facility] [place] [address] Macey Cruz MD [address] [place] [address] Allergies Active Allergy Reactions Severity Noted Date [...] hemoglobin A1c goal of less than 8.0% ([facility]) Inject under the skin 1.5 mg once a week . Do not start before April 03, 2022. 6 mL 3 04/03/2022 Active OneTouch Verio Reflect w/Device KitIndications:Type 2 diabetes mellitus with hemoglobin A1c goal of less than 8.0% ([facility]) Use as directed. Test Blood sugar one to two times per day. E11.9 1 Kit 0 07/03/2022 Active OneTouch Delica Lancets 33GIndications:Type 2 diabetes mellitus with hemoglobin A1c goal of less than 8.0% ([facility]) Test Blood sugar one to [...] complication, without long-term current use of insulin ([facility]),Dyslipidemia Take 1 Tablet by mouth in the morning. 90 Tablet 3 09/06/2022 Active Letrozole 2.5 MG Oral Tablet (Femara)Indications:I nfiltrating ductal carcinoma of left breast ([facility]),CLL (chronic lymphocytic leukemia) ([facility]) Take 1 Tablet by mouth in the morning. 90 Tablet 5 09/12/2022 Active Multivitamin Adults 50+ Oral Tablet Take 1 Tablet by mouth daily. 0 Active metFORMIN HCl ER 500 MG Oral Tablet Extended Release 24 Hour (Glucophage XR)Indications:Type 2 diabetes mellitus without complication, without long-term current use of insulin ([facility]) Take 1 Tablet by mouth 2 times a day with morning and evening meals. Take in addition to medication in pill pack until completed. 14 Tablet 0 10/09/2022 Active metFORMIN HCl ER 500 MG Oral Tablet Extended Release 24 Hour (Glucophage XR)Indications:Type 2 diabetes mellitus with hemoglobin A1c goal of less than 8.0% ([facility]),Type 2 diabetes mellitus without complication, without long-term current use of insulin ([facility]) Take 2 Tablets by mouth 2 times a day with morning and evening meals. 360 Tablet 3 10/09/2022 Active OneTouch Verio In Vitro Strip (Glucose Blood)Indications:Typ e 2 diabetes mellitus with hemoglobin A1c goal of less than 8.0% ([facility]) Test Blood sugar one to two times per day. E11.9 200 Strip 2 11/02/2022 Active Sodium Fluoride 1.1 % Dental Cream [place] onto teeth every night at bedtime. 0 Active Nystatin-Triamcinolon e 375466-3.1 UNIT/GM-% External Cream (Mycolog) APPLY TOPICALLY 4 [...] inj 1,000 mcgIndications:B12 deficiency 1000 mcg IM [id number] 11/24/2022 10/26/2023 Active documented as of this [...] sinus infections 05/25/2016 Overview: 05/23>Saw ENT in [place]; CT 2 yrs ago- moved [place] -02/19--zpak,pred [...] breast can cer 05/25/2016 07/23/2018 Overview: 05/2015 [place] Screen for colon cancer 05/25/2016 07/24/19 19 Overview: csope-- 10/05/14- nl, gr 1 IH> At [place]--rpt 10 yrs documented as of this encounter [...] Description 11/29/2022 Nutrition Services Nutrition Services Monica Perry, RDN [address] [place] [address] 12/13/2022 Office Visit Hematology Oncology Macey Cruz MD [address] [place] [address] 12/18/2022 Office Visit Pharmacy Pharmacist2, [facility] [address] [place] [address] 01/05/2023 Office Visit Family Medicine Jacey Dunn CRNP [address] [place] [address] 02/01/2023 Office Visit General Surgery Myke Pulliam MD [address] [place] [address] 03/14/2023 Office Visit Family Medicine Annabella Victoria DO [address] [place] [address] 03/27/2023 Office Visit Cardiology Kimmy López, DO [address] [place] [id number] 09/25/2023 Cardiac Studies Cardiology [facility] [address] [place] [address] Health Maintenance Due Date Last Done Comments [...] 08/24/2021, Additional history exists B-12 11/15/2023 11/14/2022, 040 09/2021, 11/02/2020, Additional history exists DXA Scan 10/18/2024 10/18/2022, 07/06, 02/19/2012 DTaP,Tdap,and Td Vaccines (2 - Td or Tdap) 05/26/2025 05/26/2015 Pneumococcal Vaccine: 65+ Years Completed 05/19/2014, 09/17/2012, 05/26/2002 Zoster Vaccines Completed 03/25/2019, 11/05, 02/01/2007 COVID-19 Vaccine Completed 02/03/2022, , 03/02/2021, Additional history exists VITAMIN D LEVEL ONCE IN A LIFETIME-USE SMARTSET# [id number] Completed 11/14/2022 GARDASIL-HPV IMMUNIZATION SERIES Aged Out No longer eligible based on patient's age to complete this topic Hepatitis B Aged Out No longer eligi ble based on patient's age to complete this topic MENINGOCOCCAL (MENACTRA/MENVEO) Aged Out No longer eligible based on patient's age to complete this topic documented as of this encounter Medical Devices Implanted Type Area Frit Burner Device Identifier Shelf Expiration Date Model / Serial / Lot Lens Intraoc 19.0 - [id number] - [id number] Implanted:Qty: 1 on 12/13/2021 by Mitchell Guzman MD at OR [facility] Left: Eye [employer]CH [employer] LOMB 06/06/2026 [id number] / [id number] / [id number] Lens Intraoc 19.0 - [id number] - [id number] Implanted:Qty: 1 on 12/27/2021 by Mitchell Guzman MD at OR [facility] Right: Eye BAUSCH [employer] LOMB 06/06/2026 [id number] / [id number] / [id number] documented as of this encounter Advance Directives [...] the patient have Health Care Power of Legal Officer? No Code Status History Code Status Date Activated Date Inactivated Comments No Code 12/13/2021 6:43 AM 12/13/2021 1:23 PM This or tim reflects the patients wishes and were consensually agreed upon. Question Answer Comments Discussion of Advance Directives occurred with: Patient Does the patient have a Living Will? No Does the patient have Health Care Power of Legal Officer? No Care Teams Commercial Intern Relationship Specialty Start Date End Date Annabella Victoria, [address] [place] [address] PCP - General Family Medicine 07/19/17 documented as of this encounter
--- OUTSIDE RECORDS SUMMARY | 2023-04-09 09:47 | External Medical Summary | Summary of Care ---
Author Name Unknown Organization [facility] Address [address] [place] [address] Phone [phone] Care Team Providers Care Insurance And Benefits Clerk Name Role Phone Annabella Victoria DO Primary Care Provider [phone] Reason for Visit * Reason Onset Date Comments Test Results Lab 10/23/2022 Encounter Details Date Type Department Care Team Description 10/23/2022 Telephone Hematology/Oncology [facility] [place] [address] [facility] [place] [address] Macey Cheatham MD [address] [place] [address] Test Results Lab Allergies Active Allergy Reactions [...] [facility]) Test Blood sugar one to [...] [facility]) Test Blood sugar one to [...] sinus infections 05/25/2016 Overview: 05/23>Saw ENT in [place]; [place] 2 yrs ago- moved [place] -02/19--zpak,pred 03/22, pred 04/21;doxy 05/23--not on nasacort [...] breast can cer 05/25/2016 07/23/2018 Overview: 05/2015 [place] Screen for colon cancer 05/25/2016 07/24/19 19 Overview: csope-- 10/05/14- nl, gr 1 IH> At [place]--rpt 10 yrs documented as of this encounter [...] new dentist is Dee Dee Blum DMD, [facility] ([address] [place] [address]). Her phone number is [phone] and her fax number is [phone]. Called Dr. Blum's office, spoke to Salome, [...] like Tia to call back. Call back: [phone] * Telephone Encounter - Tia Salmeron LPN [...] of dentist is Dr. Matheus Rajput in [place]; office phone number is [phone] * Telephone Encounter - Tia Salmeron LPN - 11/15/2022 9:39 AM EDT Left message on daughter's phone since she has not read myG message. Need name of dentist to obtaindental clearance for prolia. * Telephone Encounter - Tia Salmeron LPN - 11/10/2022 11:13 AM EDT Patient's daughter read myG message * Telephone Encounter - Tia Salmeron LPN - 11/09/2022 10:46 AM EDT My [employer] message has not been read, attempted to [...] her dental workup " Placed order for [id number] lab CMP, phos and cbcd orders already [...] out 2 weeks ago. 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 [...] 11/29/2022 Nutrition Services Nutrition Services Monica Perry, LEON [address] [place] [address] 12/13/2022 Office Visit Hematology Oncology Macey Cheatham MD [address] [facility] [place] [address] 12/18/2022 Office Visit Pharmacy Pharmacist2, [facility] [address] [facility] [place] [address] 01/05/2023 Office Visit Family Medicine Jacey Dunn CRNP [address] [place] [address] 02/01/2023 Office Visit General Surgery Myke Pulliam MD [address] [place] [address] 03/14/2023 Office Visit Family Medicine Annabella Victoria DO [address] [place] [address] 03/27/2023 Office Visit Cardiology Kimmy López DO [address] [place] [address] 09/25/2023 Cardiac Studies Cardiology [facility], [address] [place] [address] Scheduled Orders Name Type Priority Associated Diagnoses [...] and Over 09/07/2023 09/06/2022 GFR 09/12/2023 09/11/2022, 10/2021, 08/24/2021, Additional history exists B-12 11/15/2023 11/14/2022, 09/2021, 11/02/2020, Additional history exists DXA Scan 10/18/2024 10/18/2022, 07/06, 02/19/2012 DTaP,Tdap,and Td Vaccines (2 - Td or Tdap) 05/26/2025 05/26/2015 Pneumococcal Vaccine: 65+ Years Completed 05/19/2014, 09/17/2012, 05/26/2002 Zoster Vaccines Completed 03/25/2019, 11/05, 02/01/2007 COVID-19 Vaccine Completed 02/03/2022, , 03/02/2021, Additional history exists VITAMIN D LEVEL ONCE IN A LIFETIME-USE SMARTSET# 49659 Completed 11/14/2022 GARDASIL-HPV IMMUNIZATION SERIES Aged Out No longer eligible based on patient's age to complete this topic Hepatitis B Aged Out No longer eligi ble based on patient's age to complete this topic MENINGOCOCCAL (MENACTRA/MENVEO) Aged Out No longer eligible based on patient's age to complete this topic documented as of this encounter Medical Devices Implanted Type Area Anatomic Pathologist Device Identifier Shelf Expiration Date Model / Serial / Lot Lens Intraoc 19.0 - [id number] - [id number] Implanted:Qty: 1 on 12/13/2021 by Mitchell Guzman MD at OR [facility] Left: Eye [employer]OM[employer] 06/06/2026 [id number] / [id number] / [id number] Lens Intraoc 19.0 - [id number] - [id number] Implanted:Qty: 1 on 12/27/2021 by Mitchell Guzman MD at OR [facility] Right: Eye [employer] LOMB 06/06/2026 [id number] / [id number] / [id number] documented as of this encounter Visit Diagnoses [...] the patient have Health Care Power of Pretzel Packer? No Code Status History Code Status Date Activated Date Inactivated Comments No Code 12/13/2021 6:43 AM 12/13/2021 1:23 PM This or tim reflects the patients wishes and were consensually agreed upon. Question Answer Comments Discussion of Advance Directives occurred with: Patient Does the patient have a Living Will? No Does the patient have Health Care Power of Pretzel Packer? No Care Teams Insurance And Benefits Clerk Relationship Specialty Start Date End Date Annabella Victoria, DO [address] [place] [address] PCP - General Family Medicine 07/19/17 documented as of this encounter
--- OUTSIDE RECORDS SUMMARY | 2023-04-09 09:47 | External Medical Summary | Summary of Care ---
Author Name Unknown Organization [facility] Address [address] [place] [address] Phone [phone] Care Team Providers Care Manager Business Name Role Phone Annabella Victoria DO Primary Care Provider [phone] Encounter Details Date Type Department Care Team Description 12/08/2022 Result Scan Unspecified Department [facility] [address] [facility] [place] [address] <No scans attached> Allergies Active Allergy Reactions Severity Noted Date Comments Pollen Other (Please comment) 03/22/2016 Itchy, inflamed eyes Penicillins Rash 03/22/2016 Sulfa Antibiotics Nausea/vomiting 03/22/2016 documented as of this encounter (statuses as of 12/08/2022) Medications Medication Sig Dispensed Refills Start Date [...] hemoglobin A1c goal of less than 8.0% ([facility]) Inject under the skin 1.5 mg once a week . Do not start before April 03, 2022. 6 mL 3 04/03/2022 Active OneTouch Verio Reflect w/Device KitIndications:Type 2 diabetes mellitus with hemoglobin A1c goal of less than 8.0% ([facility]) Use as directed. Test Blood sugar one to two times per day. E11.9 1 Kit 0 07/03/2022 Active OneTouch Delica Lancets 33GIndications:Type 2 diabetes mellitus with hemoglobin A1c goal of less than 8.0% ([facility]) Test Blood sugar one to two times [...] complication, without long-term current use of insulin ([facility]),Dyslipidemia Take 1 Tablet by mouth in the morning. 90 Tablet 3 09/06/2022 Active Letrozole 2.5 MG Oral Tablet (Femara)Indications:I nfiltrating ductal carcinoma of left breast (HCC),CLL (chronic lymphocytic leukemia) ([facility]) Take 1 Tablet by mouth in the morning. 90 Tablet 5 09/12/2022 Active Multivitamin Adults 50+ Oral Tablet Take 1 Tablet by mouth daily. 0 Active metFORMIN HCl ER 500 MG Oral Tablet Extended Release 24 Hour (Glucophage XR)Indications:Type 2 diabetes mellitus without complication, without long-term current use of insulin ([facility]) Take 1 Tablet by mouth 2 times [...] Active Sodium Fluoride 1.1 % Dental Cream [place] onto teeth every night at bedtime. 0 Active Nystatin-Triamcinolon e 455254-5.1 UNIT/GM-% External Cream (Mycolog) APPLY TOPICALLY 4 [...] inj 1,000 mcgIndications:B12 deficiency 1000 mcg IM [id number] 11/24/2022 10/26/2023 Active documented as of this encounter (statuses as of 12/08/2022) Active Problems Problem Noted Date Osteoporosis with [...] sinus infections 05/25/2016 Overview: 05/23>Saw ENT in [place]; CT 2 yrs ago- moved [place] -02/19--zpak,pred 03/22, pred 04/21;doxy 05/23--not on nasacort daily-resume and + claritin Preoperative general physical examinatio n 05/25/2016 Overview: 07/21-l-m risk--0.3/-1.7--rpt 3 yrs Type 2 diabetes mellitus wit hout complication, without long-term current use of insulin 04/10/2016 HTN, goal below 140/90 04/10/2016 Dyslipidemia 04/10/2016 Acquired hypothyroidism 04/10/2016 documented as of this encounter (statuses as of 12/08/2022) Resolved Problems Problem Noted Date Resolved Date Mammographic microcalcification 10/19/2016 08/13/2018 Overview: 12/21--scattered fibroglandular densities (25% - 50% fibroglandular), dystrophic ca+-rpt 1 yr Closed fracture of proximal end of right humerus with routine healing 10/19/2016 07/23/2018 Overview: 07/25/16 Encounter for screening mammogram for breast can cer 05/25/2016 07/23/2018 Overview: 05/2015 [place] Screen for colon cancer 05/25/2016 07/24/19 19 Overview: csope-- 10/05/14- nl, gr 1 IH> At [place]--rpt 10 yrs documented as of this encounter (statuses as of 12/08/2022) Immunizations Name Administration Dates Next Due COVID-19 [...] Macey Cruz MD [address] [place] [address] 12/18/2022 Office Visit Pharmacy Pharmacist, [facility] [address] [place] [address] 01/05/2023 Office Visit Family Medicine Jacey Dunn CRNP [address] [place] [address] 02/01/2023 Office Visit General Surgery Myke Pulliam MD [address] [place] [address] 03/02/2023 Nutrition Services Nutrition Services Monica Perry, RDN [address] [place] [address] 03/14/2023 Office Visit Family Medicine Annabella iVctoria DO [address] [place] [address] 03/27/2023 Office Visit Cardiology Kimmy López, DO [address] [place] [address] 09/25/2023 Cardiac Studies Cardiology [facility] [address] [place] [address] Health Maintenance Due Date Last Done Comments [...] 08/24/2021, Additional history exists B-12 11/15/2023 11/14/2022, 0 09/2021, 11/02/2020, Additional history exists DXA Scan 10/18/2024 10/18/2022, 07/06, 02/19/2012 DTaP,Tdap,and Td Vaccines (2 - Td or Tdap) 05/26/2025 05/26/2015 Pneumococcal Vaccine: 65+ Years Completed 05/19/2014, 09/17/2012, 05/26/2002 Zoster Vaccines Completed 03/25/2019, 11/05, 02/01/2007 COVID-19 Vaccine Completed 02/03/2022, , 03/02/2021, Additional history exists VITAMIN D LEVEL ONCE IN A LIFETIME-USE SMARTSET# 98943 Completed 11/14/2022 GARDASIL-HPV IMMUNIZATION SERIES Aged Out No longer eligible based on patient's age to complete this topic Hepatitis B Aged Out No longer eligi ble based on patient's age to complete this topic MENINGOCOCCAL (MENACTRA/MENVEO) Aged Out No longer eligible based on patient's age to complete this topic documented as of this encounter Medical Devices Implanted Type Area Behavioral Instructor Device Identifier Shelf Expiration Date Model / Serial / Lot Lens Intraoc 19.0 - [id number] - [id number] Implanted:Qty: 1 on 12/13/2021 by Mitchell Guzman MD at OR [facility] Left: Eye BAUSCH [employer] LOMB 06/06/2026 [id number] / [id number] / [id number] Lens Intraoc 19.0 - [id number] - [id number] Implanted:Qty: 1 on 12/27/2021 by Mitchell Guzman MD at OR [facility] Right: Eye BAUSCH [employer] LOMB 06/06/2026 [id number] / [id number] / [id number] documented as of this encounter Procedures Procedure Name Priority Date/Time Associated Diagnosis Comments CARDIOLOGY SCANNED RESULT 12/08/2022 documented in this encounter Results * CARDIOLOGY SCANNED RESULT (12/08/2022) 12/08/2022 Kimmy López DO OTHER documented in this [...] the patient have Health Care Power of Undercollar Baster? No Code Status History Code Status Date Activated Date Inactivated Comments No Code 12/13/2021 6:43 AM 12/13/2021 1:23 PM This or tim reflects the patients wishes and were consensually agreed upon. Question Answer Comments Discussion of Advance Directives occurred with: Patient Does the patient have a Living Will? No Does the patient have Health Care Power of Undercollar Baster? No Care Teams Manager Business Relationship Specialty Start Date End Date Annabella Victoria, [address] [place] [address] PCP - General Family Medicine 07/19/17 documented as of this encounter
--- OUTSIDE RECORDS SUMMARY | 2023-04-09 09:47 | External Medical Summary | Summary of Care ---
Author Name Unknown Organization [facility] Address [address] [place] [address] Phone [phone] Care Team Providers Care Wood Floor Refinisher Name Role Phone Annabella Victoria DO Primary Care Provider [phone] Reason for Visit * Reason Onset Date Comments FYI 11/28/2022 Encounter Details Date Type Department Care Team Description 11/28/2022 Telephone Family Practice [facility] [address] [place] [address] Annabella Victoria DO [address] [facility] [place] [address] FYI (/) Allergies Active Allergy Reactions Severity Noted Date [...] goal of less than 8.0% ([facility]) Inject under the skin 1.5 mg once a week . Do not start before April 03, 2022. 6 mL 3 04/03/2022 Active OneTouch Verio Reflect w/Device KitIndications:Type 2 diabetes mellitus with hemoglobin A1c goal of less than 8.0% ([facility]) Use as directed. Test Blood sugar one to two times per day. E11.9 1 Kit 0 07/03/2022 Active OneTouch Delica Lancets 33GIndications:Type 2 diabetes mellitus with hemoglobin A1c goal of less than 8.0% ([facility]) Test Blood sugar one to [...] breast (HCC),CLL (chronic lymphocytic leukemia) ([facility]) Take 1 Tablet by mouth [...] goal of less than 8.0% ([facility]),Type 2 diabetes mellitus without complication, without long-term current use of insulin (HCC) Take 2 Tablets by mouth 2 times a day with morning and evening meals. 360 Tablet 3 10/09/2022 Active OneTouch Verio In Vitro Strip (Glucose Blood)Indications:Typ e 2 diabetes mellitus with hemoglobin A1c goal of less than 8.0% ([facility]) Test Blood sugar one to two times per day. E11.9 200 Strip 2 11/02/2022 Active Sodium Fluoride 1.1 % Dental Cream [place] onto teeth every night at bedtime. 0 Active Nystatin-Triamcinolon e 580169-8.1 UNIT/GM-% External Cream (Mycolog) APPLY TOPICALLY 4 [...] inj 1,000 mcgIndications:B12 deficiency 1000 mcg IM [id number] 11/24/2022 10/26/2023 Active documented as of this [...] sinus infections 05/25/2016 Overview: 05/23>Saw ENT in [place]; CT 2 yrs ago- moved [place] -02/19--zpak,pred [...] breast can cer 05/25/2016 07/23/2018 Overview: 05/2015 [place] Screen for colon cancer 05/25/2016 07/24/19 19 Overview: csope-- 10/05/14- nl, gr 1 IH> At [place]--rpt 10 yrs documented as of this encounter [...] encounter Miscellaneous Notes * Telephone Encounter - Annabella Victoria DO - 11/29/2022 3:54 PM EDT Me neither, noted * Telephone Encounter - Radha Marshall RN - 11/28/2022 2:10 PM EDT I don't see that we wrote for a referral to [facility]. * Telephone Encounter - NICKO Quezada - 11/28/2022 1:35 PM EDT Irma from [facility] is calling in regards to a referral they received for a clearance. She states that she is not a patient of their's and that she wanted to make the office aware. documented in this encounter Plan of Treatment Upcoming Encounters Date Type Specialty Care Team Description 12/13/2022 Office Visit Hematology Oncology Anthony, Macey Chakraborty MD [address] [facility] [place] [address] 12/18/2022 Office Visit Pharmacy Pharmacist2, [facility] [address] [facility] [place] [address] 01/05/2023 Office Visit Family Medicine Jacey Dunn CRNP [address] [place] [address] 02/01/2023 Office Visit General Surgery Myke Pulliam MD [address] [place] [address] 03/02/2023 Nutrition Services Nutrition Services Monica Perry RDN [address] [place] [address] 03/14/2023 Office Visit Family Medicine Annabella Victoria DO [address] [place] [address] 03/27/2023 Office Visit Cardiology Kimmy López DO [address] [place] [id number] 09/25/2023 Cardiac Studies Cardiology [address] [place] [address] Health Maintenance Due Date Last Done Comments [...] D LEVEL ONCE IN A LIFETIME-USE SMARTSET# [id number] Completed 11/14/2022 GARDASIL-HPV IMMUNIZATION SERIES Aged Out No longer eligible based on patient's age to complete this topic Hepatitis B Aged Out No longer eligi ble based on patient's age to complete this topic MENINGOCOCCAL (MENACTRA/MENVEO) Aged Out No longer eligible based on patient's age to complete this topic documented as of this encounter Medical Devices Implanted Type Area Systems Software Designer Device Identifier Shelf Expiration Date Model / Serial / Lot Lens Intraoc 19.0 - [id number] - [id number] Implanted:Qty: 1 on 12/13/2021 by Mitchell Guzman MD at OR [facility] Left: Eye [employer]CH [employer] LOMB 06/06/2026 [id number] / [id number] / [id number] Lens Intraoc 19.0 - [id number] - [id number] Implanted:Qty: 1 on 12/27/2021 by Mitcehll Guzman MD at OR [facility] Right: Eye BAUSCH & LOMB 06/06/2026 [id number] / [id number] / [id number] documented as of this encounter Advance Directives [...] the patient have Health Care Power of Insulation Board Calender Operator? No Code Status History Code Status Date Activated Date Inactivated Comments No Code 12/13/2021 6:43 AM 12/13/2021 1:23 PM This or tim reflects the patients wishes and were consensually agreed upon. Question Answer Comments Discussion of Advance Directives occurred with: Patient Does the patient have a Living Will? No Does the patient have Health Care Power of Insulation Board Calender Operator? No Care Teams Wood Floor Refinisher Relationship Specialty Start Date End Date Annabella Victoria, DO [address] [place] [address] PCP - General Family Medicine 3/15/18 documented as of this encounter
--- OUTSIDE RECORDS SUMMARY | 2023-04-09 09:47 | External Medical Summary ---
Author Name Unknown Address Unknown Organization K09:[facility] [place] [address] Laboratory Report Ordering Provider Test Date Status NAN MALIN 12/13/2022 10:41:14 Final Observation Date Value Abnormality Reference (Units ) Status Phosphate 12/13/2022 10:41:14 4.6 2.5-4.8 (m g/dL) Final Performing Location [facility] [place] [address]
--- OUTSIDE RECORDS SUMMARY | 2023-04-09 09:48 | External Medical Summary | Summary of Care ---
Author Name Unknown Organization [facility] Address [address] [place] [address] Phone [phone] Care Team Providers Care Goldbeater Name Role Phone Annabella Victoria DO Primary Care Provider [phone] Reason for Visit * Reason Onset Date Comments Test Results Lab 10/23/2022 Encounter Details Date Type Department Care Team Description 10/23/2022 Telephone Hematology/Oncology [facility] [place] [address] [facility] [place] [address] Macey Cheatham MD [address] [place] [address] Test Results Lab Allergies Active Allergy Reactions Severity Noted Date Comments Pollen Other (Please comment) 03/22/2016 Itchy, inflamed eyes Penicillins Rash 03/22/2016 Sulfa Antibiotics Nausea/vomiting 03/22/2016 documented as of this encounter (statuses as of 11/27/2022) Medications Medication Sig Dispensed Refills Start Date [...] goal of less than 8.0% ([facility]) Inject under the skin 1.5 mg once a week . Do not start before April 03, 2022. 6 mL 3 04/03/2022 Active OneTouch Verio Reflect w/Device KitIndications:Type 2 diabetes mellitus with hemoglobin A1c goal of less than 8.0% ([facility]) Use as directed. Test Blood sugar one to two times per day. E11.9 1 Kit 0 07/03/2022 Active OneTouch Delica Lancets 33GIndications:Type 2 diabetes mellitus with hemoglobin A1c goal of less than 8.0% ([facility]) Test Blood sugar one to [...] goal of less than 8.0% ([facility]) Test Blood sugar one to two times per day. E11.9 200 Strip 3 07/03/2022 3 Discontinue d(Refill) documented as of this encounter (statuses as of 11/27/2022) Active Problems Problem Noted Date Osteoporosis with [...] sinus infections 05/25/2016 Overview: 05/23>Saw ENT in [place]; [place] 2 yrs ago- moved [place] -02/19--zpak,pred 03/22, pred 04/21;doxy 05/23--not on nasacort daily-resume and + claritin Preoperative general physical examinatio n 05/25/2016 Overview: 07/21-l-m risk--0.3/-1.7--rpt 3 yrs Type 2 diabetes mellitus wit hout complication, without long-term current use of insulin 04/10/2016 HTN, goal below 140/90 04/10/2016 Dyslipidemia 04/10/2016 Acquired hypothyroidism 04/10/2016 documented as of this encounter (statuses as of 11/27/2022) Resolved Problems Problem Noted Date Resolved Date Mammographic microcalcification 10/19/2016 08/13/2018 Overview: 12/21--scattered fibroglandular densities (25% - 50% fibroglandular), dystrophic ca+-rpt 1 yr Closed fracture of proximal end of right humerus with routine healing 10/19/2016 07/23/2018 Overview: 07/25/16 Encounter for screening mammogram for breast can cer 05/25/2016 07/23/2018 Overview: 05/2015 [place] Screen for colon cancer 05/25/2016 07/24/19 19 Overview: csope-- 10/05/14- nl, gr 1 IH> At [place]--rpt 10 yrs documented as of this encounter (statuses as of 11/27/2022) Immunizations Name Administration Dates Next Due COVID-19 [...] gave information of [place]. Notified Dedeee that prolia wouldnot be started until all dental procedures are complete and we would need dental clearance from Dee Dee Blum DMD before starting prolia. Notified Deedee that we could notify Dr. Blum's office as well. Deedee verbalizes understand and will let office know when dental work is complete as well. The new dentist is Dee Dee Blum DMD, [facility] ([address] [place] [address]). Her phone number is [phone] and her fax number is [phone]. Called Dr. Blum's office, spoke to Salome, to notify about dental clearance needed after procedures and future prolia injection. She verbalizes understanding. * Telephone Encounter - NICKO Guillen - 11/27/2022 12:08 PM EDT Would like Tia to call back. Call back: [phone] * Telephone Encounter - Tia Salmeron LPN [...] of dentist is Dr. Matheus Rajput in [place]; office phone number is [phone] * Telephone Encounter - Tia Salmeron LPN - 11/15/2022 9:39 AM EDT Left message on daughter's phone since she has not read myG message. Need name of dentist to obtaindental clearance for prolia. * Telephone Encounter - Tia Salmeron LPN - 11/10/2022 11:13 AM EDT Patient's daughter read myG message * Telephone Encounter - Tia Salmeron LPN - 11/09/2022 10:46 AM EDT My [facility] message has not been read, attempted to [...] her dental workup " Placed order for [id number] lab CMP, phos and cbcd orders already placed. Sent patient and daughtr a [employer] message with Dr. Cheatham's response. * Telephone Encounter - Tia Salmeron LPN - 11/02/2022 3:[address] Cheatham: Patient would like to wait on prolia until after radiation, she also needs dental work. Patient's daughter wrote "I almost forgot. Her dental filling fell out 2 weeks ago. We contacted the community center coordinator's office to let them know as we [...] AM EDT Order received for prolia 60mg, [place] created and routed to provider for signature. [...] Perry, RDN [address] [place] [address] 12/13/2022 Office Visit Hematology Oncology Macey Cheatham MD [address] [place] [address] 12/18/2022 Office Visit Pharmacy Pharmacist2, [facility] [address] [place] [address] 01/05/2023 Office Visit Family Medicine Jacey Dunn CRNP [address] [place] [address] 02/01/2023 Office Visit General Surgery Myke Pulliam MD [address] [place] [address] 03/14/2023 Office Visit Family Medicine Annabella Victoria DO [address] [place] [address] 03/27/2023 Office Visit Cardiology Kimmy López, DO [address] [place] [address] 09/25/2023 Cardiac Studies Cardiology [facility] [address] [place] [address] Scheduled Orders Name Type Priority Associated Diagnoses [...] D LEVEL ONCE IN A LIFETIME-USE SMARTSET# [id number] Completed 11/14/2022 GARDASIL-HPV IMMUNIZATION SERIES Aged Out No longer eligible based on patient's age to complete this topic Hepatitis B Aged Out No longer eligi ble based on patient's age to complete this topic MENINGOCOCCAL (MENACTRA/MENVEO) Aged Out No longer eligible based on patient's age to complete this topic documented as of this encounter Medical Devices Implanted Type Area Bit Grinder Device Identifier Shelf Expiration Date Model / Serial / Lot Lens Intraoc 19.0 - [id number] - [id number] Implanted:Qty: 1 on 12/13/2021 by Mitchell Guzman MD at OR [facility] Left: Eye [employer] LOMB 06/06/2026 [id number] / [id number] / [id number] Lens Intraoc 19.0 - [id number] - [id number] Implanted:Qty: 1 on 12/27/2021 by Mitchell Guzman MD at OR [facility] Right: Eye BAUSCH [employer] LOMB 06/06/2026 [id number] / [id number] / [id number] documented as of this encounter Visit Diagnoses [...] the patient have Health Care Power of Pyrotechnics Press Tender? No Code Status History Code Status Date Activated Date Inactivated Comments No Code 12/13/2021 6:43 AM 12/13/2021 1:23 PM This or tim reflects the patients wishes and were consensually agreed upon. Question Answer Comments Discussion of Advance Directives occurred with: Patient Does the patient have a Living Will? No Does the patient have Health Care Power of Pyrotechnics Press Tender? No Care Teams Goldbeater Relationship Specialty Start Date End Date Annabella Victoria, DO [address] [place] [address] PCP - General Family Medicine 07/19/17 documented as of this encounter
--- OUTSIDE RECORDS SUMMARY | 2023-04-09 09:48 | External Medical Summary | Summary of Care ---
Author Name Unknown Organization [facility] Address [address] [place] [address] Phone [phone] Care Team Providers Care Tool Distributor Name Role Phone Annabella Victoria DO Primary Care Provider [phone] Reason for Visit * Reason Onset Date Comments Test Results Lab 10/23/2022 Encounter Details Date Type Department Care Team Description 10/23/2022 Telephone Hematology/Oncology [facility] [place] [address] [facility] [place] [address] Macey Cheatham MD [address] [place] [address] Test Results Lab Allergies Active Allergy Reactions Severity Noted Date Comments Pollen Other (Please comment) 03/22/2016 Itchy, inflamed eyes Penicillins Rash 03/22/2016 Sulfa Antibiotics Nausea/vomiting 03/22/2016 documented as of this encounter (statuses as of 11/15/2022) Medications Medication Sig Dispensed Refills Start Date [...] goal of less than 8.0% ([facility]) Inject under the skin 1.5 mg once a week . Do not start before April 03, 2022. 6 mL 3 04/03/2022 Active OneTouch Verio Reflect w/Device KitIndications:Type 2 diabetes mellitus with hemoglobin A1c goal of less than 8.0% ([facility]) Use as directed. Test Blood sugar one to two times per day. E11.9 1 Kit 0 07/03/2022 Active OneTouch Delica Lancets 33GIndications:Type 2 diabetes mellitus with hemoglobin A1c goal of less than 8.0% ([facility]) Test Blood sugar one to two [...] goal of less than 8.0% ([facility]) Test Blood sugar one to two times per day. E11.9 200 Strip 3 07/03/2022 3 Discontinue d(Refill) documented as of this encounter (statuses as of 11/15/2022) Active Problems Problem Noted Date Osteoporosis with [...] sinus infections 05/25/2016 Overview: 05/23>Saw ENT in [place]; CT 2 yrs ago- moved [place] -02/19--zpak,pred 03/22, pred 04/21;doxy 05/23--not on nasacort daily-resume and + claritin Preoperative general physical examinatio n 05/25/2016 Overview: 07/21-l-m risk--0.3/-1.7--rpt 3 yrs Type 2 diabetes mellitus wit hout complication, without long-term current use of insulin 04/10/2016 HTN, goal below 140/90 04/10/2016 Dyslipidemia 04/10/2016 Acquired hypothyroidism 04/10/2016 documented as of this encounter (statuses as of 11/15/2022) Resolved Problems Problem Noted Date Resolved Date Mammographic microcalcification 10/19/2016 08/13/2018 Overview: 12/21--scattered fibroglandular densities (25% - 50% fibroglandular), dystrophic ca+-rpt 1 yr Closed fracture of proximal end of right humerus with routine healing 10/19/2016 07/23/2018 Overview: 07/25/16 Encounter for screening mammogram for breast can cer 05/25/2016 07/23/2018 Overview: 05/2015 [place] Screen for colon cancer 05/25/2016 07/24/19 19 Overview: csope-- 10/05/14- nl, gr 1 IH> At [place]--rpt 10 yrs documented as of this encounter (statuses as of 11/15/2022) Immunizations Name Administration Dates Next Due COVID-19 mRNA, LNP-s, No Pre serve, 2-Dose Series (Moderna) 07/06/2020,06/02/2020 Covid-19 Mrna, Lnp-s, No Preserve, Booster (Mode rna) 10/28/2021,03/02/2021 Covid-19, Mrna, Lnp-s, Pf, B ivalent, 30 Mcg, IM, 12 yrs and above (EVOFEM) 02/03/2022 Pneumococcal Conjugate Vacc, 13 Valent (Prevnar) [...] of dentist is Dr. Matheus Rajput in [place]; office phone number is [phone] * Telephone Encounter - Tia Salmeron LPN - 11/15/2022 9:39 AM EDT Left message on daughter's phone since she has not read [employer] message. Need name of dentist to obtaindental clearance for prolia. * Telephone Encounter - Tia Salmeron LPN - 11/10/2022 11:13 AM EDT Patient's daughter read myG message * Telephone Encounter - Tia Salmeron LPN - 11/09/2022 10:46 AM EDT [employer] message has not been read, attempted to [...] her dental workup " Placed order for [id number] lab CMP, phos and cbcd orders already [...] out 2 weeks ago. We contacted the equip maint eng's office to let them know as we [...] AM EDT Order received for prolia 60mg, [place] created and routed to provider for signature. [...] Encounters Date Type Specialty Care Team Description 11/24/2022 Office Visit Family Medicine Jacey Dunn CRNP [address] [place] [address] 11/29/2022 Nutrition Services Nutrition Services Monica Perry RDN [address] [place] [address] 12/13/2022 [facility] [address] 12/18/2022 [facility] [address] 02/01/2023 Office Visit General Surgery Myke Pulliam MD [address] [place] [address] 03/14/2023 Office Visit Family Medicine Annabella Victoria DO [address] [place] [address] 03/27/2023 Office Visit Cardiology Kimmy López DO [address] [place], [place] [address] [address] 09/25/2023 Cardiac Studies Cardiology Dania [facility] [address] [place] [address] Scheduled Orders Name Type Priority Associated Diagnoses [...] Health Maintenance Due Date Last Done Comments COVID-19 Vaccine (4 - Booster) 03/31/2022 02/03/2022, 10/28/2021, 03/02/2021, Additional history exists Albumin/Creatinine Ratio 05/10/2022 022, 09/27/2017, 07/04/2016 DIABETES-EYE [...] D LEVEL ONCE IN A LIFETIME-USE SMARTSET# [id number] Completed 11/14/2022 GARDASIL-HPV IMMUNIZATION SERIES Aged Out No longer eligible based on patient's age to complete this topic Hepatitis B Aged Out No longer eligi ble based on patient's age to complete this topic MENINGOCOCCAL (MENACTRA/MENVEO) Aged Out No longer eligible based on patient's age to complete this topic documented as of this encounter Medical Devices Implanted Type Area Traditional Chinese Herbalist Device Identifier Shelf Expiration Date Model / Serial / Lot Lens Intraoc 19.0 - [id number] - [id number] Implanted:Qty: 1 on 12/13/2021 by Mitchell Guzman MD at OR [facility] Left: Eye BAUSCH & LOMB 06/06/2026 [id number] / [id number] / [id number] Lens Intraoc 19.0 - [id number] - [id number] Implanted:Qty: 1 on 12/27/2021 by Mitchell Guzman MD at OR [facility] Right: Eye BAUSCH & LOMB 06/06/2026 [id number] / [id number] / [id number] documented as of this encounter Visit Diagnoses [...] the patient have Health Care Power of Avionics Test Technician? No Code Status History Code Status Date Activated Date Inactivated Comments No Code 12/13/2021 6:43 AM 12/13/2021 1:23 PM This or tim reflects the patients wishes and were consensually agreed upon. Question Answer Comments Discussion of Advance Directives occurred with: Patient Does the patient have a Living Will? No Does the patient have Health Care Power of Avionics Test Technician? No Care Teams Tool Distributor Relationship Specialty Start Date End Date Annabella Victoria, DO [address] [place] [address] PCP - General Family Medicine 07/19/17 documented as of this encounter
--- OUTSIDE RECORDS SUMMARY | 2023-04-09 09:48 | External Medical Summary | Summary of Care ---
Author Name Unknown Organization [facility] Address [address] [place] [address] Phone [phone] Care Team Providers Care Fuel Cell Engineer Name Role Phone Annabella Victoria DO Primary Care Provider [phone] Reason for Visit * Reason Comments Return Visit Loosing weight, decr eased appetite Encounter Details Date Type Department Care Team Description 11/24/2022 Office Visit [facility] [address] [facility] [address] [facility] [address] [facility] [address] Adjustment disorder with depressed mood*; B12 deficiency; Type 2 diabetes mellitus without complication, without long-term current use of insulin (HCC); Acquired hypothyroidism; Infiltrating ductal carcinoma of left breast (HCC); Osteoporosis with symptom management only Allergies Active Allergy Reactions Severity Noted Date Comments Pollen Other (Please comment) 03/22/2016 Itchy, inflamed eyes Penicillins Rash 03/22/2016 Sulfa Antibiotics Nausea/vomiting 03/22/2016 documented as of this encounter (statuses as of 11/24/2022) Medications Medication Sig Dispensed Refills Start Date [...] goal of less than 8.0% ([facility]) Inject under the skin 1.5 mg once a week . Do not start before April 03, 2022. 6 mL 3 2 Active OneTouch Verio Reflect w/Device KitIndications:Type 2 diabetes mellitus with hemoglobin A1c goal of less than 8.0% ([facility]) Use as directed. Test Blood sugar one to two times per day. E11.9 1 Kit 0 3 Active OneTouch Delica Lancets 33GIndications:Type 2 diabetes mellitus with hemoglobin A1c goal of less than 8.0% ([facility]) Test Blood sugar one to two times per day. E11.9 200 Each 3 3 Active Macular Health Formula Oral Capsule [...] goal of less than 8.0% ([facility]),Type 2 diabetes mellitus without complication, without long-term current use of insulin (HCC) Take 2 Tablets by mouth 2 times a day with morning and evening meals. 360 Tablet 3 3 Active OneTouch Verio In Vitro Strip (Glucose Blood)Indications:T ype 2 diabetes mellitus with hemoglobin A1c goal of less than 8.0% ([facility]) Test Blood sugar one to two times per day. E11.9 200 Strip 2 3 Active Sodium Fluoride 1.1 % Dental Cream [place] onto teeth every night at bedtime. 0 Active Nystatin-Triamcinol one 942387-5.1 UNIT/GM-% External Cream (Mycolog) APPLY TOPICALLY 4 TIMES DAILY FOR RASH UNDER BREAST 0 3 Active SSD 1 % External Cream APPLY 1.5MM THICKNESS TWICE DAILY FOR RADIATIONS DERMATITIS 0 3 Active Mirtazapine 15 MG Oral Tablet (Remeron)Indication s:Adjustment disorder with depressed mood Take 1 Tablet by mouth at bedtime. 30 Tablet 5 3 Active Cyanocobalamin 1000 MCG/ML Injection Solution (Cyanocobalamin)Ind ications:B12 deficiency Inject 1,000 mcg as directed every 30 days. 1 mL 11 3 11/25/19 23 Discontinued Hospital, Clinic, or Other Facility Administered Medication Ordered Dose Route Frequency Start Date End Date Status vitamin b-12 (Cyanocobalamin) inj 1,000 mcgIndications:B12 deficiency 1000 mcg IM [id number] 11/24/2022 10/26/2023 Active documented as of this encounter (statuses as of 11/24/2022) Active Problems Problem Noted Date Osteoporosis with [...] sinus infections 05/25/2016 Overview: 05/23>Saw ENT in [place]; CT 2 yrs ago- moved [place] -02/19--zpak,pred 03/22, pred 04/21;doxy 05/23--not on nasacort daily-resume and + claritin Preoperative general physical examinatio n 05/25/2016 Overview: 07/21-l-m risk--0.3/-1.7--rpt 3 yrs Type 2 diabetes mellitus wit hout complication, without long-term current use of insulin 04/10/2016 HTN, goal below 140/90 04/10/2016 Dyslipidemia 04/10/2016 Acquired hypothyroidism 04/10/2016 documented as of this encounter (statuses as of 11/24/2022) Resolved Problems Problem Noted Date Resolved Date Mammographic microcalcification 10/19/2016 08/13/2018 Overview: 12/21--scattered fibroglandular densities (25% - 50% fibroglandular), dystrophic ca+-rpt 1 yr Closed fracture of proximal end of right humerus with routine healing 10/19/2016 07/23/2018 Overview: 07/25/16 Encounter for screening mammogram for breast can cer 05/25/2016 07/23/2018 Overview: 05/2015 [place] Screen for colon cancer 05/25/2016 07/24/19 19 Overview: csope-- 10/05/14- nl, gr 1 IH> At [place]--rpt 10 yrs documented as of this encounter (statuses as of 11/24/2022) Immunizations Name Administration Dates Next Due COVID-19 [...] Sign Reading Time Taken Comments Blood Pressure 110/68 11/24/2022 10:12 AM EDT Pulse 71 11/24/2022 10:12 AM EDT Temperature 36.1 C (97 F) 11/24/2022 10:12 AM EDT Respiratory Rate - - Oxygen Saturation 97% 11/24/2022 10:12 AM EDT Inhaled Oxygen Concentration - - Weight 60 kg (132 lb 3.2 oz) 11/24/2022 10:12 AM EDT Height - - Body Mass Index 26.7 09/15/2022 10:05 AM EDT documented in this encounter Progress Notes * CASEY Mosqueda - 11/24/2022 10:24 AM EDT Images from the original note were not included. History of Present Illness Sera Plata is a 81 year old female that presents for Return Visit (Losing weight, decreased appetite ) HPI Peg presents with daughter Falguni today to discuss weight loss. Falguni lives in [place] but has beenstaying with Peg around her breast cancer surgery and radiation. Falguni is a counselor. Peg states she's lost about 40 pounds since 2016. Her a few years ago and she is from [facility] of her friends still live. Per Falguni her mom is not enjoying things as much asshe normally would and has some depressive and anxious symptoms. Peg states she is never hungry andnothing tastes good. She has not had her b12 injection since 03/2022. She has met with a lpn per diem to discuss increasing caloric intake but finds it hard because she doesn't want to eat. Her sleepis undisturbed but in the past she has had some sleep disruption and racing thoughts. Peg is due to start prolia for osteoporosis after she has a dental procedure. Denies dizziness, lightheadedness, falls. She is on trulicity for DM; last a1c 7.3. she has been on this since March 2022 and has noticed some weight loss and appetite changes maybe worsened since starting it but that she's had these issues for years prior. Her glucose log shows post-prandial glucose levels in 200s to low 300s and fastings around 150-170. Outpatient Medications Marked as Taking for the 11/24/22 encounter (Office Visit) with Jacey Thiede, CHANGE ATTENDANT Medication Sig Nystatin-Triamcinolone 199306-7.1 UNIT/GM-% External Cream (Mycolog) APPLY TOPICALLY 4 TIMES DAILY FOR RASH UNDER BREAST SSD 1 % External Cream APPLY 1.5MM THICKNESS TWICE DAILY FOR RADIATIONS DERMATITIS Pont[employer]To[employer]clip.It In Vitro Strip (Glucose Blood) Test Blood sugar one to two times per day. E11.9 Sodium Fluoride 1.1 % Dental Cream [place] onto teeth every night at bedtime. metFORMIN HCl ER 500 MG Oral Tablet Extended Release 24 Hour (Glucophage XR) Take 1 Tablet by mouth 2 times a day with morning and evening meals. Take in addition to medication in pill pack untilcompleted. metFORMIN HCl ER 500 MG Oral Tablet [...] Take 1 Tablet bymouth in the morning. Pravastatin Sodium 40 MG Oral Tablet (Pravachol) Take 1 Tablet by mouth in the morning. Macular Health Formula Oral Capsule Take by mouth. [employer] Lancets 33G Test Blood sugar one to two times per day. E11.9 [employer] Verio Reflect w/Device Kit Use as directed. Test Blood sugar one to two times per day.E11.9 Trulicity 1.5 MG/0.5ML Subcutaneous Solution Pen-injector (Dulaglutide) Inject under the skin 1.5 mg once a week . Do not start before April 03, 2022. ProAir HFA 108 (90 Base) MCG/ACT Inhalation Aerosol Solution Inhale 2 Puffs by mouth every 4 hours as needed for Wheezing. Omeprazole Magnesium 20 MG Oral Tablet Delayed Release (PriLOSEC OTC) Take 1 Tablet by mouth asneeded for Heartburn. Current Facility-Administered Medications for the 11/24/22 encounter (Office Visit) with CASEY Mosqueda Medication vitamin b-12 (Cyanocobalamin) inj 1,000 mcg Physical Exam Vitals: 11/24/22 1012 Temp: 36.1 C (97 F) Pulse: 71 SpO2: 97% BP: 110/68 Physical Exam Vitals reviewed. Constitutional: General: She is not in acute distress. Cardiovascular: Rate and Rhythm: Normal rate. Pulmonary: Effort: No respiratory distress. Neurological: Mental Status: She is alert and oriented to person, place, and time. Psychiatric: Behavior: Behavior normal. Thought Content: Thought content normal. I have reviewed the following results: Hemoglobin A1C, TSH, BMP and B12 Assessment and Plan Adjustment disorder with depressed mood Start remeron to help with appetite Consider pulling back on trulicity if weight continues to decrease Recheck 6 weeks, sooner if issues arise - Mirtazapine 15 MG Oral Tablet (Remeron); Take 1 Tablet by mouth at bedtime. B12 deficiency b12 injection today Will do another next month at her recheck and have her set up nurse visits to keep these on track Type 2 diabetes mellitus without complication, without long-term current use of insulin (HCC) Acquired hypothyroidism Infiltrating ductal carcinoma of left breast (HCC) Osteoporosis with symptom management only Will be starting prolia in a few weeks after dental procedure Wrap-Up Follow-up: Return in about 6 weeks (around 01/05/2023). | Check-out note: Recheck mood and b12 injection Time: I spent a total of 40-54 minutes (exact time 40 mins) on the date of service in preparation, delivery, and documentation of the care provided to Sera Plata excluding any time spent in the performance of separately billed services. documented in this encounter Nursing Notes * Letty Arriaza LPN - 11/24/2022 10:08 AM EDT The patient has been properly identified by confirmation of name and date of . Chief Complaint Patient presents with Return Visit Loosing weight, decreased appetite Pt has been dealing with this for a few years. Appetite is much decreased, nothing taste good per pt. Pt still on Trulicity. Pt just finished radiation, had lumpectomy. Then 2 days later had pacemaker placed. documented in this encounter Plan of Treatment Upcoming Encounters Date Type Specialty Care Team Description 11/29/2022 Nutrition Services Nutrition Services Monica Perry, RDN [address] [place] [address] 12/13/2022 Office Visit Hematology Oncology Macey Cruz MD [address] [place] [address] 12/18/2022 Office Visit Pharmacy Pharmacist, [facility] [address] [place] [address] 01/05/2023 Office Visit Family Medicine Jacey Dunn CRNP [address] [place] [address] 02/01/2023 Office Visit General Surgery Myke Pulliam MD [address] [place] [address] 03/14/2023 Office Visit Family Medicine Annabella Victoria DO [address] [place] [address] 03/27/2023 Office Visit Cardiology Kimmy López DO [address] [place] [id number] 09/25/2023 Cardiac Studies Cardiology Dania Hussein [facility] [address] [place] [address] Health Maintenance Due Date Last Done Comments [...] and Over 09/07/2023 09/06/2022 GFR 09/12/2023 09/11/2022, 100 10/2021, 08/24/2021, Additional history exists B-12 11/15/2023 11/14/2022, 040 09/2021, 11/02/2020, Additional history exists DXA Scan 10/18/2024 10/18/2022, 07/06, 02/19/2012 DTaP,Tdap,and Td Vaccines (2 - Td or Tdap) 05/26/2025 05/26/2015 Pneumococcal Vaccine: 65+ Years Completed 05/19/2014, 09/17/2012, 05/26/2002 Zoster Vaccines Completed 03/25/2019, 11/05, 02/01/2007 COVID-19 Vaccine Completed 02/03/2022, , 03/02/2021, Additional history exists VITAMIN D LEVEL ONCE IN A LIFETIME-USE SMARTSET# [id number] Completed 11/14/2022 GARDASIL-HPV IMMUNIZATION SERIES Aged Out No longer eligible based on patient's age to complete this topic Hepatitis B Aged Out No longer eligi ble based on patient's age to complete this topic MENINGOCOCCAL (MENACTRA/MENVEO) Aged Out No longer eligible based on patient's age to complete this topic documented as of this encounter Medical Devices Implanted Type Area Bar Back Device Identifier Shelf Expiration Date Model / Serial / Lot Lens Intraoc 19.0 - [id number] - [id number] Implanted:Qty: 1 on 12/13/2021 by Mitchell Guzman MD at OR [facility] Left: Eye BAUSCH & LOMB 06/06/2026 [id number] / [id number] / [id number] Lens Intraoc 19.0 - [id number] - [id number] Implanted:Qty: 1 on 12/27/2021 by Mitchell Guzman MD at OR [facility] Right: Eye BAUSCH & LOMB 06/06/2026 [id number] / [id number] / [id number] documented as of this encounter Visit Diagnoses Diagnosis Adjustment disorder with depressed mood- Primary B12 deficiency Other B-complex deficiencies Type 2 diabetes mellitus without complication, without long-term current use of insulin (HCC) Acquired hypothyroidism Unspecified hypothyroidism Infiltrating ductal carcinoma of left breast (HCC) Osteoporosis with symptom management only Osteoporosis, unspecified documented in this encounter Administered Medications Active Administered Medications - up to 3 most recent administrations Medication Order MAR Action Action Date Dose Rate Site vitamin b-12 (Cyanocobalamin) inj 1,000 mcg 1,000 mcg, Intramuscular, [id number], First dose on Sun11/24/22 at 1145, Last dose on Sun09/28/23 at 1145, For 12 doses Given 11/24/2022 11:03 AM EDT 1,000 mcg Deltoid Right Upper documented in this encounter Advance [...] the patient have Health Care Power of Business Intelligence Analyst? No Code Status History Code Status Date Activated Date Inactivated Comments No Code 12/13/2021 6:43 AM 12/13/2021 1:23 PM This or tim reflects the patients wishes and were consensually agreed upon. Question Answer Comments Discussion of Advance Directives occurred with: Patient Does the patient have a Living Will? No Does the patient have Health Care Power of Business Intelligence Analyst? No Care Teams Fuel Cell Engineer Relationship Specialty Start Date End Date Annabella Victoria, [address] [place] [address] PCP - General Family Medicine 07/19/17 documented as of this encounter"
--- OUTSIDE RECORDS SUMMARY | 2023-04-09 09:48 | External Medical Summary | Summary of Care ---
Author Name Unknown Organization [facility] Address [address] [place] [address] Phone [phone] Care Team Providers Care Product Design Engineer Name Role Phone Annabella Victoria DO Primary Care Provider [phone] Reason for Visit * Reason Onset Date Comments Test Results Lab 10/23/2022 Encounter Details Date Type Department Care Team Description 10/23/2022 Telephone Hematology/Oncology [facility] [place] [address] [facility] [place] [address] Macey Cheatham MD [address] [place] [address] Test Results Lab Allergies Active Allergy Reactions [...] hemoglobin A1c goal of less than 8.0% ([facility]) Inject under the skin 1.5 mg once a week . Do not start before April 03, 2022. 6 mL 3 04/03/2022 Active OneTouch Verio Reflect w/Device KitIndications:Type 2 diabetes mellitus with hemoglobin A1c goal of less than 8.0% ([facility]) Use as directed. Test Blood sugar one to two times per day. E11.9 1 Kit 0 07/03/2022 Active OneTouch Delica Lancets 33GIndications:Type 2 diabetes mellitus with hemoglobin A1c goal of less than 8.0% ([facility]) Test Blood sugar one to [...] hemoglobin A1c goal of less than 8.0% ([facility]) Test Blood sugar one to [...] sinus infections 05/25/2016 Overview: 05/23>Saw ENT in [place]; CT 2 yrs ago- moved [place] -02/19--zpak,pred 03/22, pred 04/21;doxy 05/23--not on nasacort [...] breast can cer 05/25/2016 07/23/2018 Overview: 05/2015 [place] Screen for colon cancer 05/25/2016 07/24/19 19 Overview: csope-- 10/05/14- nl, gr 1 IH> At [place]--rpt 10 yrs documented as of this encounter (statuses as of 11/15/2022) Immunizations Name Administration Dates Next Due COVID-19 mRNA, LNP-s, No Pre serve, 2-Dose Series (Moderna) 07/06/2020,06/02/2020 Covid-19 Mrna, Lnp-s, No Preserve, Booster (Mode rna) 10/28/2021,03/02/2021 Covid-19, Mrna, Lnp-s, Pf, B ivalent, 30 Mcg, IM, 12 yrs and above ([employer]) 02/03/2022 Pneumococcal Conjugate Vacc, 13 Valent (Prevnar) [...] Gave phone number and fax number to office. Patient will need to wait to start prolia until early December. * Telephone Encounter - NICKO Corral - 11/15/2022 10:39 AM EDT Pt calling back; name of dentist is Dr. Matheus Rajput in [place]; office phone number is [phone] * Telephone Encounter - Tia Salmeron LPN - 11/15/2022 9:39 AM EDT Left message on daughter's phone since she has not read [place] message. Need name of dentist to obtaindental clearance for prolia. * Telephone Encounter - Tia Salmeron LPN - 11/10/2022 11:13 AM EDT Patient's daughter read myG message * Telephone Encounter - Tia Salmeron LPN - 11/09/2022 10:46 AM EDT My [employer] message has not been read, attempted to [...] her dental workup " Placed order for [id number] lab CMP, phos and cbcd orders already [...] out 2 weeks ago. We contacted the gas line servicer's office to let them know as we [...] AM EDT Order received for prolia 60mg, [place] created and routed to provider for signature. [...] Dunn CRNP [address] [place] [address] 11/29/2022 Nutrition Services Nutrition Services Monica Perry RDN [address] [place] [address] 12/13/2022 Office Visit [facility]ology [facility]cology [facility] [address] [facility] [address] 12/18/2022 [facility] [address] 02/01/2023 Office Visit General Surgery Myke Pulliam MD [address] [place] [address] 03/14/2023 Office Visit Family Medicine Annabella Victoria DO [address] [place] [address] 03/27/2023 Office Visit Cardiology Kimmy López DO [address] [place], [place] [address] [address] 09/25/2023 Cardiac Studies Cardiology Dania Hussein [facility] [address] [place] [address] Scheduled Orders Name Type Priority Associated Diagnoses [...] D LEVEL ONCE IN A LIFETIME-USE SMARTSET# [id number] Completed 11/14/2022 GARDASIL-HPV IMMUNIZATION SERIES Aged Out No longer eligible based on patient's age to complete this topic Hepatitis B Aged Out No longer eligi ble based on patient's age to complete this topic MENINGOCOCCAL (MENACTRA/MENVEO) Aged Out No longer eligible based on patient's age to complete this topic documented as of this encounter Medical Devices Implanted Type Area Corporate Strategist Device Identifier Shelf Expiration Date Model / Serial / Lot Lens Intraoc 19.0 - [id number] - [id number] Implanted:Qty: 1 on 12/13/2021 by Mitchell Guzman MD at OR [facility] Left: Eye BAUSCH & LOMB 06/06/2026 [id number] / [id number] / [id number] Lens Intraoc 19.0 - [id number] - [id number] Implanted:Qty: 1 on 12/27/2021 by Mitchell Guzman MD at OR [facility] Right: Eye BAUSCH & LOMB 06/06/2026 [id number] / [id number] / [id number] documented as of this encounter Visit Diagnoses [...] the patient have Health Care Power of Marine Electronics Repairer? No Code Status History Code Status Date Activated Date Inactivated Comments No Code 12/13/2021 6:43 AM 12/13/2021 1:23 PM This or tim reflects the patients wishes and were consensually agreed upon. Question Answer Comments Discussion of Advance Directives occurred with: Patient Does the patient have a Living Will? No Does the patient have Health Care Power of Marine Electronics Repairer? No Care Teams Product Design Engineer Relationship Specialty Start Date End Date Annabella Victoria, [address] [place] [address] PCP - General Family Medicine 07/19/17 documented as of this encounter
--- OUTSIDE RECORDS SUMMARY | 2023-04-09 09:48 | External Medical Summary | Summary of Care ---
Author Name Unknown Organization [facility] Address [address] [place] [address] Phone [phone] Care Team Providers Care Coating And Embossing Unit Operator Name Role Phone Annabella Victoria DO Primary Care Provider [phone] Reason for Visit * Reason Onset Date Comments Test Results Lab 10/23/2022 Encounter Details Date Type Department Care Team Description 10/23/2022 Telephone Hematology/Oncology [facility] [place] [address] [facility] [place] [address] Macey Cheatham MD [address] [place] [address] Test Results Lab Allergies Active Allergy Reactions [...] goal of less than 8.0% ([facility]) Inject under the skin 1.5 mg once a week . Do not start before April 03, 2022. 6 mL 3 04/03/2022 Active OneTouch Verio Reflect w/Device KitIndications:Type 2 diabetes mellitus with hemoglobin A1c goal of less than 8.0% ([facility]) Use as directed. Test Blood sugar one to two times per day. E11.9 1 Kit 0 07/03/2022 Active OneTouch Delica Lancets 33GIndications:Type 2 diabetes mellitus with hemoglobin A1c goal of less than 8.0% ([facility]) Test Blood sugar one to two times [...] goal of less than 8.0% ([facility]) Test Blood sugar one to two times [...] sinus infections 05/25/2016 Overview: 05/23>Saw ENT in [place]; CT 2 yrs ago- moved [place] -02/19--zpak,pred [...] breast can cer 05/25/2016 07/23/2018 Overview: 05/2015 [place] Screen for colon cancer 05/25/2016 07/24/19 19 Overview: csope-- 10/05/14- nl, gr 1 IH> At [place]--rpt 10 yrs documented as of this encounter [...] Miscellaneous Notes * Telephone Encounter - Tia SalmeronSANDRA - 11/27/2022 1:27 PM EDT Spoke to Sera who handed the phone to daughter Deedee. Deedee gave information of Sera's new dentist in [place]. Notified Deedee that prolia wouldnot be [...] dentist is [facility] ([address] [place] [address]). Her phone number is [phone] and her fax number is [phone]. Called Dr. Blum's office, spoke to Salome, [...] like Tia to call back. Call back: [phone] * Telephone Encounter - Tia Salmeron LPN [...] of dentist is Dr. Matheus Rajput in [place]; office phone number is [phone] * Telephone Encounter - Tia Salmeron LPN - 11/15/2022 9:39 AM EDT Left message on daughter's phone since she has not read myG message. Need name of dentist to obtaindental clearance for prolia. * Telephone Encounter - Tia Salmeron LPN - 11/10/2022 11:13 AM EDT Patient's daughter read myG message * Telephone Encounter - Tia Salmeron LPN - 11/09/2022 10:46 AM EDT My [facility] message has not been read, attempted to [...] her dental workup " Placed order for [id number] lab CMP, phos and cbcd orders already placed. Sent patient and daughtr a [employer] message with Dr. Cheatham's response. * Telephone Encounter - Tia Salmeron LPN - 11/02/2022 3:[address] Cheatham: Patient would like to wait on prolia until after radiation, she also needs dental work. Patient's daughter wrote "I almost forgot. Her dental filling fell out 2 weeks ago. We contacted the marketing/sales person's office to let them know as we [...] AM EDT Order received for prolia 60mg, [place] created and routed to provider for signature. [...] Perry, RDN [address] [place] [address] 12/13/2022 Office Visit Hematology Oncology Macey Cheatham MD [address] [place] [address] 12/18/2022 Office Visit Pharmacy Pharmacist2, [facility] [address] [facility] [place] [address] 01/05/2023 Office Visit Family Medicine Jacey Dunn CRNP [address] [place] [address] 02/01/2023 Office Visit General Surgery Myke Pulliam MD [address] [place] [address] 03/14/2023 Office Visit Family Medicine Annabella Victoria DO [address] [place] [address] 03/27/2023 Office Visit Cardiology Kimmy López, DO [address] [facility] [place] [address] 09/25/2023 Cardiac Studies Cardiology [facility] [address] [place] [address] Scheduled Orders Name Type Priority Associated Diagnoses [...] D LEVEL ONCE IN A LIFETIME-USE SMARTSET# [id number] Completed 11/14/2022 GARDASIL-HPV IMMUNIZATION SERIES Aged Out No longer eligible based on patient's age to complete this topic Hepatitis B Aged Out No longer eligi ble based on patient's age to complete this topic MENINGOCOCCAL (MENACTRA/MENVEO) Aged Out No longer eligible based on patient's age to complete this topic documented as of this encounter Medical Devices Implanted Type Area Direct Service Worker Device Identifier Shelf Expiration Date Model / Serial / Lot Lens Intraoc 19.0 - [id number] - [id number] Implanted:Qty: 1 on 12/13/2021 by Mitchell Guzman MD at OR [facility] Left: Eye [employer]OMB 06/06/2026 [id number] / [id number] / [id number] Lens Intraoc 19.0 - [id number] - [id number] Implanted:Qty: 1 on 12/27/2021 by Mitchell Guzman MD at OR [facility] Right: Eye BAUSCH [employer] LOMB 06/06/2026 [id number] / [id number] / [id number] documented as of this encounter Visit Diagnoses [...] the patient have Health Care Power of Retail Store Clerk? No Code Status History Code Status Date Activated Date Inactivated Comments No Code 12/13/2021 6:43 AM 12/13/2021 1:23 PM This or tim reflects the patients wishes and were consensually agreed upon. Question Answer Comments Discussion of Advance Directives occurred with: Patient Does the patient have a Living Will? No Does the patient have Health Care Power of Retail Store Clerk? No Care Teams Coating And Embossing Unit Operator Relationship Specialty Start Date End Date Annabella Victoria, DO [address] [place] [address] PCP - General Family Medicine 07/19/17 documented as of this encounter
--- OUTSIDE RECORDS SUMMARY | 2023-04-09 09:48 | External Medical Summary | Summary of Care ---
Author Name Unknown Organization [facility] Address [address] [place] [address] Phone [phone] Care Team Providers Care Incident Response Consultant Name Role Phone Annabella Victoria DO Primary Care Provider [phone] Reason for Visit * Reason Onset Date Comments Test Results Lab 10/23/2022 Encounter Details Date Type Department Care Team Description 10/23/2022 Telephone Hematology/Oncology [facility] [place] 200 [facility] [place] [address] Macey Cheatham MD [address] [place] [address] Test Results Lab Allergies Active Allergy Reactions [...] goal of less than 8.0% ([facility]) Inject under the skin 1.5 mg once a week . Do not start before April 03, 2022. 6 mL 3 04/03/2022 Active OneTouch Verio Reflect w/Device KitIndications:Type 2 diabetes mellitus with hemoglobin A1c goal of less than 8.0% ([facility]) Use as directed. Test Blood sugar one to two times per day. E11.9 1 Kit 0 07/03/2022 Active OneTouch Delica Lancets 33GIndications:Type 2 diabetes mellitus with hemoglobin A1c goal of less than 8.0% ([facility]) Test Blood sugar one to [...] goal of less than 8.0% ([facility]) Test Blood sugar one to [...] sinus infections 05/25/2016 Overview: 05/23>Saw ENT in [place]; CT 2 yrs ago- moved [place] -02/19--zpak,pred 03/22, pred 04/21;doxy 05/23--not on nasacort [...] breast can cer 05/25/2016 07/23/2018 Overview: 05/2015 [place] Screen for colon cancer 05/25/2016 07/24/19 19 Overview: csope-- 10/05/14- nl, gr 1 IH> At [place]--rpt 10 yrs documented as of this encounter [...] encounter Miscellaneous Notes * Telephone Encounter - NICKO Guillen - 11/27/2022 12:08 PM EDT Would like Tia to call back. Call back: [phone] * Telephone Encounter - Tia Salmeron LPN [...] calling back; name of dentist is Dr. Mathues Rajput in [place]; office phone number is [phone] * Telephone Encounter - Tia Salmeron LPN - 11/15/2022 9:39 AM EDT Left message on daughter's phone since she has not read myG message. Need name of dentist to obtaindental clearance for prolia. * Telephone Encounter - Tia Salmeron LPN - 11/10/2022 11:13 AM EDT Patient's daughter read myG message * Telephone Encounter - Tia Salmeron LPN - 11/09/2022 10:46 AM EDT My [employer] message has not been read, attempted to [...] her dental workup " Placed order for [id number] lab CMP, phos and cbcd orders already [...] out 2 weeks ago. We contacted the bingo manager's office to let them know as [...] AM EDT Order received for prolia 60mg, [place] created and routed to provider for signature. [...] Perry, LEON [address] [place] [address] 12/13/2022 Office Visit Hematology Oncology [facility] [address] 12/18/2022 [facility] Visit [facility] Pharmac[facility]2, [facility] [address] [facility] [address] 01/05/2023 Office Visit Family Medicine Jacey Dunn CRNP [address] [place] [address] 02/01/2023 Office Visit General Surgery Myke Pulliam MD [address] [place] [address] 03/14/2023 Office Visit Family Medicine Annabella Victoria DO [address] [place] [address] 03/27/2023 Office Visit Cardiology Kimmy López DO [address] [place] [id number] 09/25/2023 Cardiac Studies Cardiology [facility] [address] [place] [address] Scheduled Orders Name Type Priority Associated Diagnoses [...] D LEVEL ONCE IN A LIFETIME-USE SMARTSET# [id number] Completed 11/14/2022 GARDASIL-HPV IMMUNIZATION SERIES Aged Out No longer eligible based on patient's age to complete this topic Hepatitis B Aged Out No longer eligi ble based on patient's age to complete this topic MENINGOCOCCAL (MENACTRA/MENVEO) Aged Out No longer eligible based on patient's age to complete this topic documented as of this encounter Medical Devices Implanted Type Area Ply Bander Device Identifier Shelf Expiration Date Model / Serial / Lot Lens Intraoc 19.0 - [id number] - [id number] Implanted:Qty: 1 on 12/13/2021 by Mitchell Guzman MD at OR [facility] Left: Eye [employer]CH [employer] LOMB 06/06/2026 [id number] / [id number] / [id number] Lens Intraoc 19.0 - [id number] - [id number] Implanted:Qty: 1 on 12/27/2021 by Mitchell Guzman MD at OR [facility] Right: Eye BAUSCH [employer] LOMB 06/06/2026 [id number] / [id number] / [id number] documented as of this encounter Visit Diagnoses [...] the patient have Health Care Power of Obedience Trainer? No Code Status History Code Status Date Activated Date Inactivated Comments No Code 12/13/2021 6:43 AM 12/13/2021 1:23 PM This or tim reflects the patients wishes and were consensually agreed upon. Question Answer Comments Discussion of Advance Directives occurred with: Patient Does the patient have a Living Will? No Does the patient have Health Care Power of Obedience Trainer? No Care Teams Incident Response Consultant Relationship Specialty Start Date End Date Annabella Victoria, DO [address] [place] [address] PCP - General Family Medicine 07/19/17 documented as of this encounter
--- OUTSIDE RECORDS SUMMARY | 2023-04-09 09:48 | External Medical Summary | Summary of Care ---
Author Name Unknown Organization [facility] Address [address] [place] [address] Phone [phone] Care Team Providers Care Social Science Instructor Name Role Phone Annabella Victoria DO Primary Care Provider [phone] Reason for Visit * Reason Onset Date Comments Test Results Lab 10/23/2022 Encounter Details Date Type Department Care Team Description 10/23/2022 Telephone Hematology/Oncology [facility] [place] [facility] [place] [address] Macey Cheatham MD [address] [place] [address] Test Results Lab Allergies Active Allergy Reactions [...] sinus infections 05/25/2016 Overview: 05/23>Saw ENT in [place]; CT 2 yrs ago- moved [place] -02/19--zpak,pred 03/22, pred 04/21;doxy 05/23--not on nasacort [...] breast can cer 05/25/2016 07/23/2018 Overview: 05/2015 [place] Screen for colon cancer 05/25/2016 07/24/19 19 Overview: csope-- 10/05/14- nl, gr 1 IH> At [place]--rpt 10 yrs documented as of this encounter [...] Miscellaneous Notes * Telephone Encounter - Tia Moeller LPN - 11/27/2022 1:27 PM EDT Spoke to Sera who handed the phone to daughter Deedee. Deedee gave information of [place] new [place] in [place]. Notified Deedee that prolia wouldnot be [...] new dentist is [facility] ([address] [place] [address]). Her phone number is [phone] and her fax number is [phone]. Called Dr. Blum's office, spoke to Salome, to notify about dental clearance needed after procedures and future prolia injection. She verbalizes understanding. * Telephone Encounter - NICKO Guillen - 11/27/2022 12:08 PM EDT Would like Tia to call back. Call back: [phone] * Telephone Encounter - Tia Moeller LPN - 11/15/2022 10:48 AM EDT Gave [...] of dentist is Dr. Matheus Rajput in [place]; office phone number is [phone] * Telephone Encounter - Tia Moeller LPN - 11/15/2022 9:39 AM EDT Left message on daughter's phone since she has not read myG message. Need name of dentist to obtaindental clearance for prolia. * Telephone Encounter - Tia Moeller LPN - 11/10/2022 11:13 AM EDT Patient's daughter read myG message * Telephone Encounter - Tia Moeller LPN - 11/09/2022 10:46 AM EDT My [employer] message has not been read, attempted to call patient's daughter regarding Dr. cheatham's response. The VM was full and could not leave message. * Addendum Note - Tia Moeller LPN - 11/06/2022 1:47 PM EDTAddended by: TIA MOELLER on: 11/06/2022 01:47 PM Modules accepted: Orders * Telephone Encounter - Tia Moeller LPN - 11/06/2022 1:[address] Cheatham responds "We can request the labs. Hold the injection until she complete her dental workup " Placed order for [id number] lab CMP, phos and cbcd orders already placed. Sent patient and daughtr a myG message with Dr. Cheatham's response. * Telephone Encounter - Tia Moeller LPN - 11/02/2022 3:[address] Cheatham: Patient would like to wait on prolia until after radiation, she also needs dental work. Patient's daughter wrote "I almost forgot. Her dental filling fell out 2 weeks ago. We contacted the miller helper's office to let them know as we [...] Thanks. " * Telephone Encounter - Tia Moeller LPN - 10/31/2022 10:09 AM EDT Left patient message to follow up about prolia injection. Also sent myG message. * Telephone Encounter - Tia Moeller LPN - 10/27/2022 4:12 PM EDT Patient would like to review information and think about prolia prior. Auth is back, patient can be scheduled when agreeable. * Telephone Encounter - Tia Moeller LPN - 10/23/2022 1:19 PM EDT Left message for patient x2. Also sent myG message to patient. * Telephone Encounter - Tia Moeller LPN - 10/23/2022 8:44 AM EDT Order received for prolia 60mg, [place] created and routed to provider for signature. [...] Services Monica Perry, LEON [address] [place] [address] 12/13/2022 Office Visit Hematology Oncology [facility] [address] 12/18/2022 Office Visit Pharmacy Pharmacist2, [facility] [address] [place] [address] 01/05/2023 Office Visit Family Medicine Jacey Dunn CRNP [address] [place] [address] 02/01/2023 Office Visit General Surgery Myke Pulliam MD [address] [place] [address] 03/14/2023 Office Visit Family Medicine Annabella Victoria DO [address] [place] [address] 03/27/2023 Office Visit Cardiology Kimmy López DO [address] [facility] [place] [address] 09/25/2023 Cardiac Studies Cardiology [facility] [address] [place] [address] Scheduled Orders Name Type Priority Associated Diagnoses [...] D LEVEL ONCE IN A LIFETIME-USE SMARTSET# [id number] Completed 11/14/2022 GARDASIL-HPV IMMUNIZATION SERIES Aged Out No longer eligible based on patient's age to complete this topic Hepatitis B Aged Out No longer eligi ble based on patient's age to complete this topic MENINGOCOCCAL (MENACTRA/MENVEO) Aged Out No longer eligible based on patient's age to complete this topic documented as of this encounter Medical Devices Implanted Type Area Director Of Publications Device Identifier Shelf Expiration Date Model / Serial / Lot Lens Intraoc 19.0 - [id number] - [id number] Implanted:Qty: 1 on 12/13/2021 by Mitchell Guzman MD at OR [facility] Left: Eye BAUSCH & LOMB 06/06/2026 [id number] / [id number] / [id number] Lens Intraoc 19.0 - [id number] - [id number] Implanted:Qty: 1 on 12/27/2021 by Mitchell Guzman MD at OR [facility] Right: Eye BAUSCH & LOMB 06/06/2026 [id number] / [id number] / [id number] documented as of this encounter Visit Diagnoses [...] the patient have Health Care Power of Decal Decorator? No Code Status History Code Status Date Activated Date Inactivated Comments No Code 12/13/2021 6:43 AM 12/13/2021 1:23 PM This or tim reflects the patients wishes and were consensually agreed upon. Question Answer Comments Discussion of Advance Directives occurred with: Patient Does the patient have a Living Will? No Does the patient have Health Care Power of Decal Decorator? No Care Teams Social Science Instructor Relationship Specialty Start Date End Date Annabella Victoria, [address] [place] [address] PCP - General Family Medicine 07/19/17 documented as of this encounter
--- OUTSIDE RECORDS SUMMARY | 2023-04-09 09:48 | External Medical Summary | Summary of Care ---
Author Name Unknown Organization [facility] Address [address] [place] [address] Phone [phone] Care Team Providers Care Restaurant Cook Name Role Phone Annabella Victoria DO Primary Care Provider [phone] Reason for Visit * Reason Comments Outpatient Testing Encounter Details Date Type Department Care Team Description 11/14/2022 Laboratory Laboratory [facility] [address] [place] [address] [facility] [address] [place] [address] Osteoporosis with symptom management only; Type 2 diabetes mellitus without complication, without long-term current use of insulin ([facility]) Allergies Active Allergy Reactions Severity Noted Date Comments Pollen Other (Please comment) 03/22/2016 Itchy, inflamed eyes Penicillins Rash 03/22/2016 Sulfa Antibiotics Nausea/vomiting 03/22/2016 documented as of this encounter (statuses as of 11/14/2022) Medications Medication Sig Dispensed Refills Start Date [...] A1c goal of less than 8.0% ([facility]) Inject under the skin 1.5 mg once a week . Do not start before April 03, 2022. 6 mL 3 04/03/2022 Active OneTouch Verio Reflect w/Device KitIndications:Type 2 diabetes mellitus with hemoglobin A1c goal of less than 8.0% ([facility]) Use as directed. Test Blood sugar one to two times per day. E11.9 1 Kit 0 07/03/2022 Active OneTouch Delica Lancets 33GIndications:Type 2 diabetes mellitus with hemoglobin A1c goal of less than 8.0% ([facility]) Test Blood sugar one to [...] left breast (HCC),CLL (chronic lymphocytic leukemia) ([facility]) Take 1 Tablet by mouth [...] A1c goal of less than 8.0% ([facility]) Test Blood sugar one to two times per day. E11.9 200 Strip 2 11/02/2022 Active Sodium Fluoride 1.1 % Dental Cream [place] onto teeth every night at bedtime. 0 Active documented as of this encounter (statuses as of 11/14/2022) Active Problems Problem Noted Date Osteoporosis with [...] sinus infections 05/25/2016 Overview: 05/23>Saw ENT in [place]; [place] 2 yrs ago- moved [place] -02/19--zpak,pred 03/22, pred 04/21;doxy 05/23--not on nasacort daily-resume and + claritin Preoperative general physical examinatio n 05/25/2016 Overview: 07/21-l-m risk--0.3/-1.7--rpt 3 yrs Type 2 diabetes mellitus wit hout complication, without long-term current use of insulin 04/10/2016 HTN, goal below 140/90 04/10/2016 Dyslipidemia 04/10/2016 Acquired hypothyroidism 04/10/2016 documented as of this encounter (statuses as of 11/14/2022) Resolved Problems Problem Noted Date Resolved Date Mammographic microcalcification 10/19/2016 08/13/2018 Overview: 12/21--scattered fibroglandular densities (25% - 50% fibroglandular), dystrophic ca+-rpt 1 yr Closed fracture of proximal end of right humerus with routine healing 10/19/2016 07/23/2018 Overview: 07/25/16 Encounter for screening mammogram for breast can cer 05/25/2016 07/23/2018 Overview: 05/2015 [place] Screen for colon cancer 05/25/2016 07/24/19 19 Overview: csope-- 10/05/14- nl, gr 1 IH> At [place]--rpt 10 yrs documented as of this encounter (statuses as of 11/14/2022) Immunizations Name Administration Dates Next Due COVID-19 mRNA, LNP-s, No Pre serve, 2-Dose Series (Moderna) 07/06/2020,06/02/2020 Covid-19 Mrna, Lnp-s, No Preserve, Booster (Mode rna) 10/28/2021,03/02/2021 Covid-19, Mrna, Lnp-s, Pf, B ivalent, 30 Mcg, IM, 12 yrs and above ([employer]) 02/03/2022 Pneumococcal Conjugate Vacc, 13 Valent (Prevnar) [...] Jacey Dunn CRNP [address] [place] [address] 11/29/2022 Nutrition Services Nutrition Services Monica Perry RDN [address] [place] [address] 12/13/2022 Office Visit Hematology Oncology Macey Cruz MD [address] [facility] [facility] [address] 12/18/2022 Office Visit Pharmacy Pharmacist, [facility] [address] [place] [address] 02/01/2023 Office Visit General Surgery Myke Pulliam MD [address] [place] [address] 03/14/2023 Office Visit Family Medicine Annabella Victoria, DO [address] [place] [address] 03/27/2023 Office Visit Cardiology Kimmy López, DO [address] [place] [address] 09/25/2023 Cardiac Studies Cardiology Dania Hussein [facility] [address] [place] [address] Pending Results Name Type Priority Associated Diagnoses Date /Time 25-HYDROXY VITAMIN D Lab Routine Osteoporosis with symptom management only 11/14/2022 11:10 AM EDT VITAMIN B12 Lab Routine Type 2 diabetes mellitus without complication, without long-term current use of insulin ([facility]) 11/14/2022 11:10 AM EDT Health Maintenance Due Date Last Done Comments VITAMIN D LEVEL ONCE IN A LIFETIME-USE SMARTSET# 27080 1981 COVID-19 Vaccine (4 - Booster) 03/31/2022 02/03/2022, 10/28/2021, 03/02/2021, Additional history exists Albumin/Creatinine Ratio 05/10/2022 022, 09/27/2017, 07/04/2016 B-12 08/09/2022 08/09/2021, 10/06, 07/12/2020, Additional history exists DIABETES-EYE EXAM 08/15/2022 08/15/2021, , 07/15/2019, Additional [...] 09/11/2022, 10/0 10/2021, 08/24/2021, Additional history exists DXA Scan 10/18/2024 10/18/2022, 07/06, 02/19/2012 DTaP,Tdap,and Td Vaccines (2 - Td or Tdap) 05/26/2025 05/26/2015 Pneumococcal Vaccine: 65+ Years Completed 05/19/2014, 09/17/2012, 05/26/2002 Zoster Vaccines Completed 03/25/2019, 11/05, 02/01/2007 GARDASIL-HPV IMMUNIZATION SERIES Aged Out No longer eligible based on patient's age to complete this topic Hepatitis B Aged Out No longer eligi ble based on patient's age to complete this topic MENINGOCOCCAL (MENACTRA/MENVEO) Aged Out No longer eligible based on patient's age to complete this topic documented as of this encounter Medical Devices Implanted Type Area Pencil Inspector Device Identifier Shelf Expiration Date Model / Serial / Lot Lens Intraoc 19.0 - [id number] - [id number] Implanted:Qty: 1 on 12/13/2021 by Mitchell Guzman MD at OR [facility] Left: Eye [employer]USCH [employer] LOMB 06/06/2026 [id number] / [id number] / [id number] Lens Intraoc 19.0 - [id number] - [id number] Implanted:Qty: 1 on 12/27/2021 by Mitchell Guzman MD at OR [facility] Right: Eye BAUSCH & LOMB 06/06/2026 [id number] / [id number] / [id number] documented as of this encounter Visit Diagnoses Diagnosis Osteoporosis with symptom management only Osteoporosis, unspecified Type 2 diabetes mellitus without complication, without [...] the patient have Health Care Power of Printed Circuit Boards Inspector? No Code Status History Code Status Date Activated Date Inactivated Comments No Code 12/13/2021 6:43 AM 12/13/2021 1:23 PM This or tim reflects the patients wishes and were consensually agreed upon. Question Answer Comments Discussion of Advance Directives occurred with: Patient Does the patient have a Living Will? No Does the patient have Health Care Power of Printed Circuit Boards Inspector? No Care Teams Restaurant Cook Relationship Specialty Start Date End Date Annabella Victoria, DO [address] [place] [address] PCP - General Family Medicine 07/19/17 documented as of this encounter
--- OUTSIDE RECORDS SUMMARY | 2023-04-09 09:48 | External Medical Summary | Summary of Care ---
Author Name Unknown Organization [facility] Address [address] [place] [address] Phone [phone] Care Team Providers Care Mechanotherapist Name Role Phone Annabella Victoria DO Primary Care Provider [phone] Reason for Visit * Reason Comments Outpatient Testing Encounter Details Date Type Department Care Team Description 11/14/2022 Laboratory Laboratory [facility] [address] [place] [address] [facility] [address] [place] [address] Osteoporosis with symptom management only; Type 2 diabetes mellitus without complication, without long-term current use of insulin ([facility]) Allergies Active Allergy Reactions Severity Noted Date [...] hemoglobin A1c goal of less than 8.0% ([facility]) Inject under the skin 1.5 mg once a week . Do not start before April 03, 2022. 6 mL 3 04/03/2022 Active OneTouch Verio Reflect w/Device KitIndications:Type 2 diabetes mellitus with hemoglobin A1c goal of less than 8.0% ([facility]) Use as directed. Test Blood sugar one to two times per day. E11.9 1 Kit 0 07/03/2022 Active OneTouch Delica Lancets 33GIndications:Type 2 diabetes mellitus with hemoglobin A1c goal of less than 8.0% ([facility]) Test Blood sugar one to two [...] of left breast (HCC),CLL (chronic lymphocytic leukemia) ([facility]) Take 1 Tablet by mouth in [...] hemoglobin A1c goal of less than 8.0% ([facility]) Test Blood sugar one to two times per day. E11.9 200 Strip 2 11/02/2022 Active Sodium Fluoride 1.1 % Dental Cream [place] onto teeth every night at bedtime. 0 [...] sinus infections 05/25/2016 Overview: 05/23>Saw ENT in [place]; CT 2 yrs ago- moved [place] -02/19--zpak,pred [...] breast can cer 05/25/2016 07/23/2018 Overview: 05/2015 [place] Screen for colon cancer 05/25/2016 07/24/19 19 Overview: csope-- 10/05/14- nl, gr 1 IH> At [place]--rpt 10 yrs documented as of this encounter (statuses as of 11/14/2022) Immunizations Name Administration Dates Next Due COVID-19 mRNA, LNP-s, No Pre serve, 2-Dose Series (Moderna) 07/06/2020,06/02/2020 Covid-19 Mrna, Lnp-s, No Preserve, Booster (Mode rna) 10/28/2021,03/02/2021 Covid-19, Mrna, Lnp-s, Pf, B ivalent, 30 Mcg, IM, 12 yrs and above ([employer]) 02/03/2022 Pneumococcal Conjugate Vacc, 13 Valent (Prevnar) [...] Jacey Dunn CRNP [address] [place] [address] 11/29/2022 Nutrition Services Nutrition Services Monica Perry RDN [address] [place] [address] 12/13/2022 Office Visit Hematology Oncology Macey Cruz MD [address] [place] [address] [facility] [address] 12/18/2022 Office Visit Pharmacy Pharmacist, [facility] [address] [place] [address] 02/01/2023 Office Visit General Surgery Myke Pulliam MD [address] [place] [address] 03/14/2023 Office Visit Family Medicine Annabella Victoria, DO [address] [place] [address] 03/27/2023 Office Visit Cardiology Kimmy López, DO [address] [place] [address] 09/25/2023 Cardiac Studies Cardiology Dania Hussein [facility] [address] [place] [address] Pending Results Name Type Priority Associated Diagnoses Date /Time 25-HYDROXY VITAMIN D Lab Routine Osteoporosis with symptom management only 11/14/2022 11:10 AM EDT VITAMIN B12 Lab Routine Type 2 diabetes mellitus without complication, without long-term current use of insulin ([facility]) 11/14/2022 11:10 AM EDT Health Maintenance Due Date Last Done Comments VITAMIN D LEVEL ONCE IN A LIFETIME-USE SMARTSET# [id number] 1981 COVID-19 Vaccine (4 - Booster) 03/31/2022 [...] this encounter Medical Devices Implanted Type Area Linter Drier Operator Device Identifier Shelf Expiration Date Model / Serial / Lot Lens Intraoc 19.0 - [id number] - [id number] Implanted:Qty: 1 on 12/13/2021 by Mitchell Guzman MD at OR [facility] Left: Eye [employer]CH [employer] LOMB 06/06/2026 [id number] / [id number] / [id number] Lens Intraoc 19.0 - [id number] - [id number] Implanted:Qty: 1 on 12/27/2021 by Mitchell Guzman MD at OR [facility] Right: Eye BAUSCH [employer] LOMB 06/06/2026 [id number] / [id number] / [id number] documented as of this encounter Visit Diagnoses [...] the patient have Health Care Power of Fulfillment Associate? No Code Status History Code Status Date Activated Date Inactivated Comments No Code 12/13/2021 6:43 AM 12/13/2021 1:23 PM This or tim reflects the patients wishes and were consensually agreed upon. Question Answer Comments Discussion of Advance Directives occurred with: Patient Does the patient have a Living Will? No Does the patient have Health Care Power of Fulfillment Associate? No Care Teams Mechanotherapist Relationship Specialty Start Date End Date Annabella Victoria, DO [address] [place] [address] PCP - General Family Medicine 07/19/17 documented as of this encounter
--- OUTSIDE RECORDS SUMMARY | 2023-04-09 09:48 | External Medical Summary | Summary of Care ---
Author Name Unknown Organization [facility] Address [address] [place] [address] Phone [phone] Care Team Providers Care Director Of Veterans Affairs Name Role Phone Annabella Victoria DO Primary Care Provider [phone] Reason for Visit * Reason Onset Date Comments Test Results Lab 10/23/2022 Encounter Details Date Type Department Care Team Description 10/23/2022 Telephone Hematology/Oncology [facility] [place] [address] [facility] [place] [address] Macey Cheatham MD [address] [place] [address] Test Results Lab Allergies Active Allergy Reactions [...] sinus infections 05/25/2016 Overview: 05/23>Saw ENT in [place]; CT 2 yrs ago- moved [place] -02/19--zpak,pred 03/22, pred 04/21;doxy 05/23--not on nasacort [...] breast can cer 05/25/2016 07/23/2018 Overview: 05/2015 [place] Screen for colon cancer 05/25/2016 07/24/19 19 Overview: csope-- 10/05/14- nl, gr 1 IH> At [place]--rpt 10 yrs documented as of this encounter (statuses as of 11/15/2022) Immunizations Name Administration Dates Next Due COVID-19 mRNA, LNP-s, No Pre serve, 2-Dose Series (Moderna) 07/06/2020,06/02/2020 Covid-19 Mrna, Lnp-s, No Preserve, Booster (Mode rna) 10/28/2021,03/02/2021 Covid-19, Mrna, Lnp-s, Pf, B ivalent, 30 Mcg, IM, 12 yrs and above ([employer]) 02/03/2022 Pneumococcal Conjugate Vacc, 13 Valent (Prevnar) [...] Miscellaneous Notes * Telephone Encounter - NICKO Corral - 11/15/2022 10:39 AM EDT Pt calling back; name of dentist is Dr. Matheus Rajput in [place]; office phone number is [phone] * Telephone Encounter - Tia Moeller LPN [...] her dental workup " Placed order for [id number] lab CMP, phos and cbcd orders already placed. Sent patient and daughtr a [employer] message with Dr. Cheatham's response. * Telephone Encounter - Tia Moeller LPN - 11/02/2022 3:[address] Cheatham: Patient would like to wait on prolia until after radiation, she also needs dental work. Patient's daughter wrote "I almost forgot. Her dental filling fell out 2 weeks ago. We contacted the game bird farmer's office to let them know as we [...] AM EDT Order received for prolia 60mg, [place] created and routed to provider for signature. [...] Jacey Dunn CRNP [address] [place] [address] 11/29/2022 Nutrition Services Nutrition Services Monica Perry RDN [address] [place] [address] 12/13/2022 Office Visit Hematology Oncology Macey Cheatham MD [address] [facility] [place] [address] 12/18/2022 Office Visit Pharmacy Pharmacist, [facility] [address] [facility] [place] [address] 02/01/2023 Office Visit General Surgery Myke Pulliam MD [address] [place] [address] 03/14/2023 Office Visit Family Medicine Annabella Victoria DO [address] [place] [address] 03/27/2023 Office Visit Cardiology Kimmy López DO [address] [facility] [place] [address] 09/25/2023 Cardiac Studies Cardiology Dania Hussein [facility] [address] [place] [address] Scheduled Orders Name Type Priority Associated Diagnoses [...] D LEVEL ONCE IN A LIFETIME-USE SMARTSET# [id number] Completed 11/14/2022 GARDASIL-HPV IMMUNIZATION SERIES Aged Out No longer eligible based on patient's age to complete this topic Hepatitis B Aged Out No longer eligi ble based on patient's age to complete this topic MENINGOCOCCAL (MENACTRA/MENVEO) Aged Out No longer eligible based on patient's age to complete this topic documented as of this encounter Medical Devices Implanted Type Area Tandem Mill Sticker Device Identifier Shelf Expiration Date Model / Serial / Lot Lens Intraoc 19.0 - [id number] - [id number] Implanted:Qty: 1 on 12/13/2021 by Mitchell Guzman MD at OR [facility] Left: Eye BAUSCH [employer] LOMB 06/06/2026 [id number] / [id number] / [id number] Lens Intraoc 19.0 - [id number] - [id number] Implanted:Qty: 1 on 12/27/2021 by Mitchell Guzman MD at OR [facility] Right: Eye BAUSCH [employer] LOMB 06/06/2026 [id number] / [id number] / [id number] documented as of this encounter Visit Diagnoses [...] the patient have Health Care Power of Calibration Tester? No Code Status History Code Status Date Activated Date Inactivated Comments No Code 12/13/2021 6:43 AM 12/13/2021 1:23 PM This or tim reflects the patients wishes and were consensually agreed upon. Question Answer Comments Discussion of Advance Directives occurred with: Patient Does the patient have a Living Will? No Does the patient have Health Care Power of Calibration Tester? No Care Teams Director Of Veterans Affairs Relationship Specialty Start Date End Date Annabella Victoria, DO [address] [place] [address] PCP - General Family Medicine 07/19/17 documented as of this encounter
--- OUTSIDE RECORDS SUMMARY | 2023-04-09 09:48 | External Medical Summary | Summary of Care ---
Author Name Unknown Organization [facility] Address [address] [place] [address] Phone [phone] Care Team Providers Care Electric Tool Repairer Name Role Phone Annabella Victoria DO Primary Care Provider [phone] Reason for Visit * Reason Onset Date Comments Test Results Lab 10/23/2022 Encounter Details Date Type Department Care Team Description 10/23/2022 Telephone Hematology/Oncology [facility] [place] [address] [facility] [place] [address] Macey Cheatham MD [address] [place] [address] Test Results Lab Allergies Active Allergy Reactions [...] sinus infections 05/25/2016 Overview: 05/23>Saw ENT in [place]; CT 2 yrs ago- moved [place] -02/19--zpak,pred 03/22, pred 04/21;doxy 05/23--not on nasacort [...] breast can cer 05/25/2016 07/23/2018 Overview: 05/2015 [place] Screen for colon cancer 05/25/2016 07/24/19 19 Overview: csope-- 10/05/14- nl, gr 1 IH> At [place]--rpt 10 yrs documented as of this encounter [...] dentist is Dee Dee Blum DMD, [place] ([address] [place] [address]). Her phone number is [phone] and her fax number is [phone]. Called Dr. Blum's office, spoke to Salome, [...] like Tia to call back. Call back: [phone] * Telephone Encounter - Tia Salmeron LPN [...] of dentist is Dr. Matheus Rajput in [place]; office phone number is [phone] * Telephone Encounter - Tia Salmeron LPN - 11/15/2022 9:39 AM EDT Left message on daughter's phone since she has not read [employer] message. Need name of dentist to obtaindental clearance for prolia. * Telephone Encounter - Tia Salmeron LPN - 11/10/2022 11:13 AM EDT Patient's daughter read myG message * Telephone Encounter - Tia Salmeron LPN - 11/09/2022 10:46 AM EDT My [employer] message has not been read, attempted to [...] her dental workup " Placed order for [id number] lab CMP, phos and cbcd orders already [...] out 2 weeks ago. We contacted the insulation packer's office to let them know as we [...] AM EDT Order received for prolia 60mg, [place] created and routed to provider for signature. [...] Services Monica Perry, RDN [address] [place] [address] 12/13/2022 Office Visit Hematology Oncology [facility] [address] [facility] [address] 12/18/2022 Office Visit Pharmacy Pharmacist2, [facility] [address] 01/05/2023 Office Visit Family Medicine Jacey Dunn CRNP [address] [place] [address] 02/01/2023 Office Visit General Surgery Myke Pulliam MD [address] [place] [address] 03/14/2023 Office Visit Family Medicine Annabella Victoria DO [address] [place] [address] 03/27/2023 Office Visit Cardiology Kimmy López, DO [address] [facility] [place] [id number] 09/25/2023 Cardiac Studies Cardiology Dania Hussein [facility] [address] [place] [address] Scheduled Orders Name Type Priority Associated Diagnoses [...] D LEVEL ONCE IN A LIFETIME-USE SMARTSET# 00010 Completed 11/14/2022 GARDASIL-HPV IMMUNIZATION SERIES Aged Out No longer eligible based on patient's age to complete this topic Hepatitis B Aged Out No longer eligi ble based on patient's age to complete this topic MENINGOCOCCAL (MENACTRA/MENVEO) Aged Out No longer eligible based on patient's age to complete this topic documented as of this encounter Medical Devices Implanted Type Area Dry House Wheeler Device Identifier Shelf Expiration Date Model / Serial / Lot Lens Intraoc 19.0 - [id number] - [id number] Implanted:Qty: 1 on 12/13/2021 by Mitchell Guzman MD at OR [facility] Left: Eye BAUSCH [employer] LOMB 06/06/2026 [id number] / [id number] / [id number] Lens Intraoc 19.0 - [id number] - [id number] Implanted:Qty: 1 on 12/27/2021 by Mitchell Guzman MD at OR [facility] Right: Eye BAUSCH & LOMB 06/06/2026 [id number] / [id number] / [id number] documented as of this encounter Visit Diagnoses [...] the patient have Health Care Power of Bearing Machine Operator? No Code Status History Code Status Date Activated Date Inactivated Comments No Code 12/13/2021 6:43 AM 12/13/2021 1:23 PM This or tim reflects the patients wishes and were consensually agreed upon. Question Answer Comments Discussion of Advance Directives occurred with: Patient Does the patient have a Living Will? No Does the patient have Health Care Power of Bearing Machine Operator? No Care Teams Electric Tool Repairer Relationship Specialty Start Date End Date Annabella Victoria, DO [address] [place] [address] PCP - General Family Medicine 07/19/17 documented as of this encounter
--- OUTSIDE RECORDS SUMMARY | 2023-04-09 09:48 | External Medical Summary | Summary of Care ---
Author Name Unknown Organization [facility] Address [address] [place] [address] Phone [phone] Care Team Providers Care Labor Relations Or Personnel Negotiator Name Role Phone Annabella Victoria DO Primary Care Provider [phone] Reason for Visit * Reason Onset Date Comments Test Results Lab 10/23/2022 Encounter Details Date Type Department Care Team Description 10/23/2022 Telephone Hematology/Oncology [facility] [place] [address] [facility] [place] [address] Macey Cheatham MD [address] [place] [address] Test Results Lab Allergies Active Allergy Reactions [...] goal of less than 8.0% ([facility]) Inject under the skin 1.5 mg once a week . Do not start before April 03, 2022. 6 mL 3 04/03/2022 Active OneTouch Verio Reflect w/Device KitIndications:Type 2 diabetes mellitus with hemoglobin A1c goal of less than 8.0% ([facility]) Use as directed. Test Blood sugar one to two times per day. E11.9 1 Kit 0 07/03/2022 Active OneTouch Delica Lancets 33GIndications:Type 2 diabetes mellitus with hemoglobin A1c goal of less than 8.0% ([facility]) Test Blood sugar one to two times [...] goal of less than 8.0% ([facility]) Test Blood sugar one to two times [...] sinus infections 05/25/2016 Overview: 05/23>Saw ENT in [place]; [place] 2 yrs ago- moved [place] -02/19--zpak,pred [...] breast can cer 05/25/2016 07/23/2018 Overview: 05/2015 [place] Screen for colon cancer 05/25/2016 07/24/19 19 Overview: csope-- 10/05/14- nl, gr 1 IH> At [place]--rpt 10 yrs documented as of this encounter (statuses as of 11/15/2022) Immunizations Name Administration Dates Next Due COVID-19 mRNA, LNP-s, No Pre serve, 2-Dose Series (Moderna) 07/06/2020,06/02/2020 Covid-19 Mrna, Lnp-s, No Preserve, Booster (Mode rna) 10/28/2021,03/02/2021 Covid-19, Mrna, Lnp-s, Pf, B ivalent, 30 Mcg, IM, 12 yrs and above ([employer] [facility]) 02/03/2022 Pneumococcal Conjugate Vacc, 13 Valent (Prevnar) [...] encounter Miscellaneous Notes * Telephone Encounter - Marybeth Moeller LPN - 11/15/2022 9:39 AM EDT Left message on daughter's phone since she has not read myG message. Need name of dentist to obtaindental clearance for prolia. * Telephone Encounter - Marybeth Moeller LPN - 11/10/2022 11:13 AM EDT Patient's daughter read myG message * Telephone Encounter - Marybeth Moeller LPN - 11/09/2022 10:46 AM EDT My [employer] message has not been read, attempted to call patient's daughter regarding Dr. cheatham's response. The VM was full and could not leave message. * Addendum Note - Marybeth Moeller LPN - 11/06/2022 1:47 PM EDTAddended by: MARYBETH MOELLER on: 11/06/2022 01:47 PM Modules accepted: Orders * Telephone Encounter - Marybeth Moeller LPN - 11/06/2022 1:[address] Cheatham responds "We can request the labs. Hold the injection until she complete her dental workup " Placed order for [id number] lab CMP, phos and cbcd orders already placed. Sent patient and daughtr a myG message with Dr. Cheatham's response. * Telephone Encounter - Marybeth Moeller LPN - 11/02/2022 3:[address] Cheatham: Patient would like to wait on prolia until after radiation, she also needs dental work. Patient's daughter wrote "I almost forgot. Her dental filling fell out 2 weeks ago. We contacted the night cleaner's office to let them know as we [...] dentist. Thanks. " * Telephone Encounter - Marybeth Moeller LPN - 10/31/2022 10:09 AM EDT Left patient message to follow up about prolia injection. Also sent myG message. * Telephone Encounter - Marybeth Moeller LPN - 10/27/2022 4:12 PM EDT Patient would like to review information and think about prolia prior. Auth is back, patient can be scheduled when agreeable. * Telephone Encounter - Marybeth Moeller LPN - 10/23/2022 1:19 PM EDT Left message for patient x2. Also sent myG message to patient. * Telephone Encounter - Marybeth Moeller LPN - 10/23/2022 8:44 AM EDT Order received for prolia 60mg, [place] created and routed to provider for signature. [...] Jacey Dunn CRNP [address] [place] [address] 11/29/2022 Nutrition Services Nutrition Services Monica Perry RDN [address] [place] [address] 12/13/2022 Office Visit Hematology Oncology [facility] [address] 12/18/2022 Office Visit Pharmacy Pharmacist2, [facility] [address] [facility] [place] [address] 02/01/2023 Office Visit General Surgery Myke Pulliam MD [address] [place] [address] 03/14/2023 Office Visit Family Medicine Annabella Victoria DO [address] [place] [address] 03/27/2023 Office Visit Cardiology Kimmy López DO [address] [facility] [place] [phone] 09/25/2023 Cardiac Studies Cardiology Dania Hussein [facility] [address] [place] [address] Scheduled Orders Name Type Priority Associated Diagnoses [...] D LEVEL ONCE IN A LIFETIME-USE SMARTSET# [id number] Completed 11/14/2022 GARDASIL-HPV IMMUNIZATION SERIES Aged Out No longer eligible based on patient's age to complete this topic Hepatitis B Aged Out No longer eligi ble based on patient's age to complete this topic MENINGOCOCCAL (MENACTRA/MENVEO) Aged Out No longer eligible based on patient's age to complete this topic documented as of this encounter Medical Devices Implanted Type Area Stencil Cutter Machine Device Identifier Shelf Expiration Date Model / Serial / Lot Lens Intraoc 19.0 - [id number] - [id number] Implanted:Qty: 1 on 12/13/2021 by Mitchell Guzman MD at OR [facility] Left: Eye [employer] 06/06/2026 [id number] / [id number] / [id number] Lens Intraoc 19.0 - [id number] - [id number] Implanted:Qty: 1 on 12/27/2021 by Mitchell Guzman MD at OR [facility] Right: Eye [employer] 06/06/2026 [id number] / [id number] / [id number] documented as of this encounter Visit Diagnoses [...] the patient have Health Care Power of Advertising Teacher? No Code Status History Code Status Date Activated Date Inactivated Comments No Code 12/13/2021 6:43 AM 12/13/2021 1:23 PM This o rder reflects the patients wishes and were consensually agreed upon. Question Answer Comments Discussion of Advance Directives occurred with: Patient Does the patient have a Living Will? No Does the patient have Health Care Power of Advertising Teacher? No Care Teams Labor Relations Or Personnel Negotiator Relationship Specialty Start Date End Date Annabella Victoria, [address] [place] [address] PCP - General Family Medicine 07/19/17 documented as of this encounter
--- OUTSIDE RECORDS SUMMARY | 2023-04-09 09:49 | External Medical Summary | Summary of Care ---
Author Name Unknown Organization [facility] Address [address] [place] [address] Phone [phone] Care Team Providers Care Dry End Operator Name Role Phone Katie Duncan DO Primary Care Provider [phone] Reason for Visit * Reason Onset Date Comments Medication Refill 11/01/2022 Encounter Details Date Type Department Care Team Description 11/01/2022 Refill Family Practice [facility] [address] [facility] [place] [address] Katie Duncan DO [address] [place] [address] Type 2 diabetes mellitus with hemoglobin A1c goal of less than 8.0% ([facility]) Allergies Active Allergy Reactions Severity Noted Date Comments Pollen Other (Please comment) 03/22/2016 Itchy, inflamed eyes Penicillins Rash 03/22/2016 Sulfa Antibiotics Nausea/vomiting 03/22/2016 documented as of this encounter (statuses as of 11/02/2022) Medications Medication Sig Dispensed Refills Start Date [...] hemoglobin A1c goal of less than 8.0% ([facility]) Inject under the skin 1.5 mg once a week . Do not start before April 03, 2022. 6 mL 3 04/03/2022 Active OneTouch Verio Reflect w/Device KitIndications:Type 2 diabetes mellitus with hemoglobin A1c goal of less than 8.0% ([facility]) Use as directed. Test Blood sugar one to two times per day. E11.9 1 Kit 0 07/03/2022 Active OneTouch Delica Lancets 33GIndications:Type 2 diabetes mellitus with hemoglobin A1c goal of less than 8.0% ([facility]) Test Blood sugar one to two times [...] day. E11.9 200 Strip 2 11/02/2022 Active OneTouch Verio In Vitro Strip (Glucose Blood)Indications:T ype 2 diabetes mellitus with hemoglobin A1c goal of less than 8.0% ([facility]) Test Blood sugar one to two times per day. E11.9 200 Strip 3 07/03/2022 3 Discontinue d(Refill) documented as of this encounter (statuses as of 11/02/2022) Active Problems Problem Noted Date Osteoporosis with [...] sinus infections 05/25/2016 Overview: 05/23>Saw ENT in [place]; [place] 2 yrs ago- moved [place] -02/19--zpak,pred 03/22, pred 04/21;doxy 05/23--not on nasacort daily-resume and + claritin Preoperative general physical examinatio n 05/25/2016 Overview: 07/21-l-m risk--0.3/-1.7--rpt 3 yrs Type 2 diabetes mellitus wit hout complication, without long-term current use of insulin 04/10/2016 HTN, goal below 140/90 04/10/2016 Dyslipidemia 04/10/2016 Acquired hypothyroidism 04/10/2016 documented as of this encounter (statuses as of 11/02/2022) Resolved Problems Problem Noted Date Resolved Date Mammographic microcalcification 10/19/2016 08/13/2018 Overview: 12/21--scattered fibroglandular densities (25% - 50% fibroglandular), dystrophic ca+-rpt 1 yr Closed fracture of proximal end of right humerus with routine healing 10/19/2016 07/23/2018 Overview: 07/25/16 Encounter for screening mammogram for breast can cer 05/25/2016 07/23/2018 Overview: 05/2015 [place] Screen for colon cancer 05/25/2016 07/24/19 19 Overview: csope-- 10/05/14- nl, gr 1 IH> At [place]--rpt 10 yrs documented as of this encounter (statuses as of 11/02/2022) Immunizations Name Administration Dates Next Due COVID-19 [...] Hd, 65+ Yrs Seasonal Influenza, Quadrivalent, No Jean, M dck 02/13/2020 TDAP (age 12 and [...] encounter Miscellaneous Notes * Telephone Encounter - Michelle Serra RP - 11/02/2022 7:49 AM EDTSigned Prescriptions: Disp Refills OneTouch Verio In Vitro Strip (Glucose Blo*[address] St*2 Sig: Test Blood sugar one to two times per day. E11.9 Authorizing Provider: KATIE DUNCAN Ordering User: MICHELLE SERRA * Telephone Encounter - Rosemarie Perry CPhT - 11/01/2022 9:10 AM EDT Please reroute Rx to [facility] [address] [facility]. Pending Prescriptions: Disp Refills OneTouch Verio In Vitro Strip (Glucose Bl*[address] St*3 Sig: Test Blood sugar one to two times per day. E11.9 Last Visit: 09/06/2022 (in office), Visit date not found (telemedicine) 03/14/2023 If no future appointments scheduled, and last appointment is greater than a year ago, please schedule patient for a follow-up appointment Last date the medication was ordered: 07/03/22 Patient Phone Numbers Labs: Lab Results Component Value Date/Time CREAT 0.8 09/11/2022 09:48 AM CREAT 0.8 03/02/2020 11:20 AM POTASSIUM 5.0 09/11/2022 09:48 AM POTASSIUM 4.7 03/02/2020 11:20 AM TSH 2.08 02/09/2022 10:53 AM TSH 2.13 08/20/2019 09:24 AM LDLCALC UNINTERPRETABLE RESULT 10/17/2018 10:16 AM LDLDIRECT 61 08/09/2021 08:28 AM LDLDIRECT 63 10/17/2018 10:16 AM ALT 23 09/11/2022 09:48 AM ALT 29 03/02/2020 11:20 AM HGBA1C 7.3 (H) 08/28/2022 10:43 AM HGBA1C 7.1 (H) 11/25/2019 09:24 AM documented in this encounter Plan of Treatment Upcoming Encounters Date Type Specialty Care Team Description 11/17/2022 Nutrition Services Nutrition Services Monica Perry, MARIAHN [address] [place] [address] 12/13/2022 Office Visit Hematology Oncology Macey Cruz MD [address] [place] [address] 12/18/2022 Office Visit Pharmacy Pharmacist2, [facility] [address] [place] [address] 02/01/2023 Office Visit General Surgery Myke Pulliam MD [address] [place] [address] 03/14/2023 Office Visit Family Medicine Katie Duncan DO [address] [place] [address] 03/27/2023 Office Visit Cardiology Kimmy López, DO [address] [place] [phone] 09/25/2023 Cardiac Studies Cardiology [facility] [address] [place] [address] Health Maintenance Due Date Last Done Comments VITAMIN D LEVEL ONCE IN A LIFETIME-USE SMARTSET# [id number] 1981 COVID-19 Vaccine (4 - Booster) 03/31/2022 02/03/2022, 10/28/2021, 03/02/2021, Additional history exists Albumin/Creatinine Ratio 05/10/2022 022, 09/27/2017, 07/04/2016 Yearly B-12 08/09/2022 08/09/2021, 10/06, 07/12/2020, Additional history exists DIABETES-EYE EXAM 08/15/2022 08/15/2021, , 07/15/2019, Additional history exists *BISPHONATE OR OTHER ACCEPTABLE MEDICATION NEEDED FOR OSTEOPOROSIS (REFER TO SMARTSET #1146) 10/26/2022 TSH 02/09/2023 02/09/2022, 10/06, 08/20/2019, Additional history exists HbA1c 02/27/2023 08/28/2022, 04/06, 12/08/2021, Additional history exists DIABETES-FOOT EXAM 09/07/2023 09/06/2022, 0 08/10/2021, 11/03/2020, Additional history exists Depression Screening, Annual for Pts 12 and Over 09/07/2023 09/06/2022 GFR 09/12/2023 09/11/2022, 10/2021, 08/24/2021, Additional history exists DXA Scan 10/18/2024 10/18/2022, 07/06, 02/19/2012 DTaP,Tdap,and Td Vaccines (2 - Td or Tdap) 05/26/2025 05/26/2015 Pneumococcal Vaccine: 65+ Years Completed 05/19/2014, 09/17/2012, 05/26/2002 Zoster Vaccines Completed 03/25/2019, 11/05, 02/01/2007 Influenza Vaccine (FLU shot) Completed , 02/04/2021, 02/13/2020, Additional history exists GARDASIL-HPV IMMUNIZATION SERIES Aged Out No longer eligible based on patient's age to complete this topic Hepatitis B Aged Out No longer eligi ble based on patient's age to complete this topic MENINGOCOCCAL (MENACTRA/MENVEO) Aged Out No longer eligible based on patient's age to complete this topic documented as of this encounter Medical Devices Implanted Type Area Glue Reel Operator Device Identifier Shelf Expiration Date Model / Serial / Lot Lens Intraoc 19.0 - [id number] - [id number] Implanted:Qty: 1 on 12/13/2021 by Mitchell Guzman MD at OR [facility] Left: Eye [employer] 06/06/2026 [id number] / [id number] / [id number] Lens Intraoc 19.0 - [id number] - [id number] Implanted:Qty: 1 on 12/27/2021 by Mitchell Guzman MD at OR [facility] Right: Eye [employer] 06/06/2026 [id number] / [id number] / [id number] documented as of this encounter Visit Diagnoses [...] the patient have Health Care Power of Continuous Miner Operator? No Code Status History Code Status Date Activated Date Inactivated Comments No Code 12/13/2021 6:43 AM 12/13/2021 1:23 PM This or tim reflects the patients wishes and were consensually agreed upon. Question Answer Comments Discussion of Advance Directives occurred with: Patient Does the patient have a Living Will? No Does the patient have Health Care Power of Continuous Miner Operator? No Care Teams Dry End Operator Relationship Specialty Start Date End Date Katie Duncan, [address] [place] [address] PCP - General Family Medicine 07/19/17 documented as of this encounter
--- OUTSIDE RECORDS SUMMARY | 2023-04-09 09:49 | External Medical Summary | Summary of Care ---
Author Name Unknown Organization [facility] Address [address] [place] [address] Phone [phone] Care Team Providers Care Saw Runner Name Role Phone Annabella Victoria DO Primary Care Provider [phone] Reason for Visit * Reason Onset Date Comments Test Results Lab 10/23/2022 Encounter Details Date Type Department Care Team Description 10/23/2022 Telephone Hematology/Oncology [facility] [place] [address] [facility] [place] [address] Maecy Cheatham MD [address] [place] [address] Test Results Lab Allergies Active Allergy Reactions [...] [facility] Test Blood sugar one to [...] [facility] Test Blood sugar one to [...] sinus infections 05/25/2016 Overview: 05/23>Saw ENT in [place]; [place] 2 yrs ago- moved [place] -02/19--zpak,pred 03/22, pred 04/21;doxy 05/23--not on nasacort [...] breast can cer 05/25/2016 07/23/2018 Overview: 05/2015 [place] Screen for colon cancer 05/25/2016 07/24/19 19 Overview: csope-- 10/05/14- nl, gr 1 IH> At [place]--rpt 10 yrs documented as of this encounter (statuses as of 11/14/2022) Immunizations Name Administration Dates Next Due COVID-19 mRNA, LNP-s, No Pre serve, 2-Dose Series (Moderna) 07/06/2020,06/02/2020 Covid-19 Mrna, Lnp-s, No Preserve, Booster (Mode rna) 10/28/2021,03/02/2021 Covid-19, Mrna, Lnp-s, Pf, B ivalent, 30 Mcg, IM, 12 yrs and above ([employer]) 02/03/2022 Pneumococcal Conjugate Vacc, 13 Valent (Prevnar) [...] 11/10/2022 11:13 AM EDT Patient's daughter read Huy [place] message * Telephone Encounter - Tia Salmeron LPN - 11/09/2022 10:46 AM EDT My [employer] message has not been read, attempted to [...] her dental workup " Placed order for [id number] lab CMP, phos and cbcd orders already [...] out 2 weeks ago. We contacted the roll trucker's office to let them know as we [...] AM EDT Order received for prolia 60mg, [place] created and routed to provider for signature. [...] Encounters Date Type Specialty Care Team Description 11/14/2022 Laboratory Laboratory [place], Petar Pavon [address] [place] [address] 11/24/2022 Office Visit Family Medicine Jacey Dunn CRNP [address] [place] [address] 11/29/2022 Nutrition Services Nutrition Services Monica Perry RDN [address] [place] [address] 12/13/2022 Office Visit Hematology Oncology Macey Cheatham MD [address] [place] [address] 12/18/2022 Office Visit Pharmacy Pharmacist2, [facility] [address] [place] [address] 02/01/2023 Office Visit General Surgery Myke Pulliam MD [address] [place] [address] 03/14/2023 Office Visit Family Medicine Annabella Victoria DO [address] [place] [address] 03/27/2023 Office Visit Cardiology Kimmy López, DO [address] [place] [address] 09/25/2023 Cardiac Studies Cardiology Dania Hussein [facility] [address] [place] [address] Scheduled Orders Name Type Priority Associated Diagnoses [...] Health Maintenance Due Date Last Done Comments B-12 12/25/1959 VITAMIN D LEVEL ONCE IN A LIFETIME-USE SMARTSET# [id number] 1981 COVID-19 Vaccine (4 - Booster) 03/31/2022 [...] 09/12/2023 09/11/2022, 1010/2021, 08/24/2021, Additional history exists DXA Scan 10/18/2024 [...] this encounter Medical Devices Implanted Type Area Emergency Services Professional Device Identifier Shelf Expiration Date Model / Serial / Lot Lens Intraoc 19.0 - [id number] - [id number] Implanted:Qty: 1 on 12/13/2021 by Mitchell Guzman MD at [facility] Left: Eye [employer] 06/06/2026 [id number] / [id number] / [id number] Lens Intraoc 19.0 - [id number] - [id number] Implanted:Qty: 1 on 12/27/2021 by Mitchell Guzman MD at OR [facility] Right: Eye [employer] 06/06/2026 [id number] / [id number] / [id number] documented as of this encounter Visit Diagnoses [...] the patient have Health Care Power of Formation Testing Operator? No Code Status History Code Status Date Activated Date Inactivated Comments No Code 12/13/2021 6:43 AM 12/13/2021 1:23 PM This or tim reflects the patients wishes and were consensually agreed upon. Question Answer Comments Discussion of Advance Directives occurred with: Patient Does the patient have a Living Will? No Does the patient have Health Care Power of Formation Testing Operator? No Care Teams Saw Runner Relationship Specialty Start Date End Date Annabella Victoria, [address] [place] [address] PCP - General Family Medicine 07/19/17 documented as of this encounter
--- OUTSIDE RECORDS SUMMARY | 2023-04-09 09:49 | External Medical Summary | Summary of Care ---
Author Name Unknown Organization [facility] Address [address] [place] [address] Phone [phone] Care Team Providers Care Coding Team Lead Name Role Phone Annabella Victoria DO Primary Care Provider [phone] Reason for Visit * Reason Onset Date Comments Test Results Lab 10/23/2022 Encounter Details Date Type Department Care Team Description 10/23/2022 Telephone Hematology/Oncology [facility] [place] [address] [facility] [place] [address] Macey Cruz MD [address] [place] [address] Test Results Lab Allergies Active Allergy Reactions [...] A1c goal of less than 8.0% ([facility]) Inject under the skin 1.5 mg once a week . Do not start before April 03, 2022. 6 mL 3 04/03/2022 Active OneTouch Verio Reflect w/Device KitIndications:Type 2 diabetes mellitus with hemoglobin A1c goal of less than 8.0% ([facility]) Use as directed. Test Blood sugar one to two times per day. E11.9 1 Kit 0 07/03/2022 Active OneTouch Delica Lancets 33GIndications:Type 2 diabetes mellitus with hemoglobin A1c goal of less than 8.0% ([facility]) Test Blood sugar one to two [...] A1c goal of less than 8.0% ([facility]) Test Blood sugar one to two [...] sinus infections 05/25/2016 Overview: 05/23>Saw ENT in [place]; CT 2 yrs ago- moved [place] -02/19--zpak,pred 03/22, pred 04/21;doxy 05/23--not on nasacort [...] breast can cer 05/25/2016 07/23/2018 Overview: 05/2015 [place] Screen for colon cancer 05/25/2016 07/24/19 19 Overview: csope-- 10/05/14- nl, gr 1 IH> At [place]--rpt 10 yrs documented as of this encounter [...] LPN - 11/02/2022 3:[address] Cruz: Patient would like to wait on prolia until after radiation, she also needs dental work. Patient's daughter wrote "I almost forgot. Her dental filling fell out 2 weeks ago. We contacted the supply chain specialist's office to let them know as we [...] AM EDT Order received for prolia 60mg, [place] created and routed to provider for signature. Lab orders entered for cmp., cbcd, phos prior to every injection. Left message for patient to call office regarding test results and prolia order, supplements. Patient needs dental work completed per previous TE, Would need to wait to start prolia after. ----- Message from Macey Cruz MD sent at 10/23/2022 8:39 AM EDT ----- On DEXA bone density scan fracture risk is HIGH. She should take the vitamin-D and calcium supplement. Will repeat the bone density scan in 1 year. Will also start her on Prolia documented in this encounter Plan of Treatment Upcoming Encounters Date Type Specialty Care Team Description 11/17/2022 Nutrition Services Nutrition Services Monica Perry, RDN [address] [place] [address] 12/13/2022 Office Visit Hematology Oncology Macey Cruz MD 200 [facility] [place] [address] 12/18/2022 Office Visit Pharmacy Pharmacist2, [facility] [place] [address] 02/01/2023 Office Visit General Surgery Myke Pulliam MD [address] [place] [address] 03/14/2023 Office Visit Family Medicine Annabella Victoria DO [address] [place] [address] 03/27/2023 Office Visit Cardiology Kimmy L[facility] DO [facility] [place] [id number] 09/25/2023 Cardiac Studies Cardiology Dania Hussein [facility] [address] [place] [address] Scheduled Orders Name Type Priority Associated Diagnoses [...] only 2 Occurrences starting 10/23/2022 until 10/24/2023 Health Maintenance Due Date Last Done Comments VITAMIN D LEVEL ONCE IN A LIFETIME-USE SMARTSET# [id number] 1981 COVID-19 Vaccine (4 - Booster) 03/31/2022 [...] this encounter Medical Devices Implanted Type Area Senior Courtroom Clerk Device Identifier Shelf Expiration Date Model / Serial / Lot Lens Intraoc 19.0 - [id number] - [id number] Implanted:Qty: 1 on 12/13/2021 by Mitchell Guzman MD at OR [facility] Left: Eye [employer] LOMB 06/06/2026 [id number] / [id number] / [id number] Lens Intraoc 19.0 - [id number] - [id number] Implanted:Qty: 1 on 12/27/2021 by Mitchell Guzman MD at OR [facility] Right: Eye BA[employer]CH [employer] LOMB 06/06/2026 [id number] / [id number] / [id number] documented as of this encounter Visit Diagnoses [...] the patient have Health Care Power of Associate Professor Of Church Music? No Code Status History Code Status Date Activated Date Inactivated Comments No Code 12/13/2021 6:43 AM 12/13/2021 1:23 PM This or tim reflects the patients wishes and were consensually agreed upon. Question Answer Comments Discussion of Advance Directives occurred with: Patient Does the patient have a Living Will? No Does the patient have Health Care Power of Associate Professor Of Church Music? No Care Teams Coding Team Lead Relationship Specialty Start Date End Date Annabella Victoria, DO [address] [place] [address] PCP - General Family Medicine 07/19/17 documented as of this encounter
--- OUTSIDE RECORDS SUMMARY | 2023-04-09 09:49 | External Medical Summary ---
Author Name Unknown Address Unknown Organization K01:[facility] [place] [address] [place] [address] Laboratory Report Ordering Provider Test Date Status PERLA WILSON 11/14/2022 11:10:50 Final Deficient: <20 ng/mL
Ins ufficient: 20-29 ng/mL
Recommended/Optimum:30-50 ng/mL

Vitamin D intoxication is rare. If suspicious of Vitamin D toxicity, evaluation of serum Calcium and PTH is recommended. Observation Date Value Abnormality Reference (Units ) Status 25-OH Vitamin D total 11/14/2022 11:10:50 59 >19 (ng/mL) Final Performing Location [facility] [place] [facility] [address] [place] [address]
--- OUTSIDE RECORDS SUMMARY | 2023-04-09 09:49 | External Medical Summary | Summary of Care ---
Author Name Unknown Organization [facility] Address [address] [place] [address] Phone [phone] Care Team Providers Care Roustabout Crew Name Role Phone Annabella Victoria DO Primary Care Provider [phone] Reason for Visit * Reason Onset Date Comments Test Results Lab 10/23/2022 Encounter Details Date Type Department Care Team Description 10/23/2022 Telephone Hematology/Oncology [facility] [place] 200 [facility] [place] [address] Macey Cheatham MD [address] [place] [address] Test Results Lab Allergies Active Allergy Reactions Severity Noted Date Comments Pollen Other (Please comment) 03/22/2016 Itchy, inflamed eyes Penicillins Rash 03/22/2016 Sulfa Antibiotics Nausea/vomiting 03/22/2016 documented as of this encounter (statuses as of 11/09/2022) Medications Medication Sig Dispensed Refills Start Date [...] as of this encounter (statuses as of 11/09/2022) Active Problems Problem Noted Date Osteoporosis with [...] sinus infections 05/25/2016 Overview: 05/23>Saw ENT in [place]; CT 2 yrs ago- moved [place] -02/19--zpak,pred 03/22, pred 04/21;doxy 05/23--not on nasacort daily-resume and + claritin Preoperative general physical examinatio n 05/25/2016 Overview: 07/21-l-m risk--0.3/-1.7--rpt 3 yrs Type 2 diabetes mellitus wit hout complication, without long-term current use of insulin 04/10/2016 HTN, goal below 140/90 04/10/2016 Dyslipidemia 04/10/2016 Acquired hypothyroidism 04/10/2016 documented as of this encounter (statuses as of 11/09/2022) Resolved Problems Problem Noted Date Resolved Date Mammographic microcalcification 10/19/2016 08/13/2018 Overview: 12/21--scattered fibroglandular densities (25% - 50% fibroglandular), dystrophic ca+-rpt 1 yr Closed fracture of proximal end of right humerus with routine healing 10/19/2016 07/23/2018 Overview: 07/25/16 Encounter for screening mammogram for breast can cer 05/25/2016 07/23/2018 Overview: 05/2015 [place] Screen for colon cancer 05/25/2016 07/24/19 19 Overview: csope-- 10/05/14- nl, gr 1 IH> At [facility]--rpt 10 yrs documented as of this encounter (statuses as of 11/09/2022) Immunizations Name Administration Dates Next Due COVID-19 mRNA, LNP-s, No Pre serve, 2-Dose Series (Moderna) 07/06/2020,06/02/2020 Covid-19 Mrna, Lnp-s, No Preserve, Booster (Mode rna) 10/28/2021,03/02/2021 Covid-19, Mrna, Lnp-s, Pf, B ivalent, 30 Mcg, IM, 12 yrs and above (Pokelabo) 02/03/2022 Pneumococcal Conjugate Vacc, 13 Valent (Prevnar) [...] Moeller LPN - 11/09/2022 10:46 AM EDT [employer] message has not been read, attempted to [...] her dental workup " Placed order for [id number]. CMP, phos and cbcd orders already placed. Sent patient and daughtr a [email or web address] message with Dr. Cheatham's response. * Telephone Encounter - Tia Moeller LPN - 11/02/2022 3:[address] Cheatham: Patient would like to wait on prolia until after radiation, she also needs dental work. Patient's daughter wrote "I almost forgot. Her dental filling fell out 2 weeks ago. We contacted the victims advocate clerk/specialist's office to let them know as we [...] AM EDT Order received for prolia 60mg, [place] created and routed to provider for signature. [...] 11/17/2022 Nutrition Services Nutrition Services Monica Perry, LEON [address] [place] [address] 11/24/2022 Office Visit Family Medicine Jacey Dunn CRNP [address] [place] [address] 12/13/2022 Office Visit Hematology Oncology Macey Cheatham MD 200 [place] [address] 12/18/2022 Office Visit Pharmacy Pharmacist, [facility] 200 [place] [address] 02/01/2023 Office Visit General Surgery Myke Pulliam MD [address] [place] [address] 03/14/2023 Office Visit Family Medicine Annabella Victoria DO [address] [place] [address] 03/27/2023 Office Visit Cardiology Kimmy López DO [address] [place] [address] 09/25/2023 Cardiac Studies Cardiology [address] [place] [address] Scheduled Orders Name Type Priority Associated Diagnoses [...] D LEVEL ONCE IN A LIFETIME-USE SMARTSET# [id number] 1981 COVID-19 Vaccine (4 - Booster) 03/31/2022 [...] this encounter Medical Devices Implanted Type Area Animal Behaviorist Device Identifier Shelf Expiration Date Model / Serial / Lot Lens Intraoc 19.0 - [id number] - [id number] Implanted:Qty: 1 on 12/13/2021 by Mitchell Guzman MD at OR [facility] Left: Eye [employer]USCH [employer] LOMB 06/06/2026 [id number] / [id number] / [id number] Lens Intraoc 19.0 - [id number] - [id number] Implanted:Qty: 1 on 12/27/2021 by Mitchell Guzman MD at OR [facility] Right: Eye BAUSCH [employer] LOMB 06/06/2026 [id number] / [id number] / [id number] documented as of this encounter Visit Diagnoses [...] the patient have Health Care Power of Cloth Napping Supervisor? No Code Status History Code Status Date Activated Date Inactivated Comments No Code 12/13/2021 6:43 AM 12/13/2021 1:23 PM This or tim reflects the patients wishes and were consensually agreed upon. Question Answer Comments Discussion of Advance Directives occurred with: Patient Does the patient have a Living Will? No Does the patient have Health Care Power of Cloth Napping Supervisor? No Care Teams Roustabout Crew Relationship Specialty Start Date End Date Annabella Victoria, DO [address] [place] [address] PCP - General Family Medicine 07/19/17 documented as of this encounter
--- OUTSIDE RECORDS SUMMARY | 2023-04-09 09:49 | External Medical Summary | Summary of Care ---
Author Name Unknown Organization [facility] Address [address] [place] [address] Phone [phone] Care Team Providers Care Talent Acquisition Specialist Name Role Phone Annabella Victoria DO Primary Care Provider [phone] Encounter Details Date Type Department Care Team Description 10/23/2022 Orders Only Hematology/Oncology [facility] [address] [place] [address] Macey Cruz MD 200 [place] [address] Allergies Active Allergy Reactions Severity Noted Date Comments Pollen Other (Please comment) 03/22/2016 Itchy, inflamed eyes Penicillins Rash 03/22/2016 Sulfa Antibiotics Nausea/vomiting 03/22/2016 documented as of this encounter (statuses as of 10/23/2022) Medications Medication Sig Dispensed Refills Start Date [...] E11.9 1 Kit 0 07/03/2022 Active OneTouch Verio In Vitro Strip (Glucose Blood)Indications:Typ e 2 diabetes mellitus with hemoglobin A1c goal of less than 8.0% (HCC) Test Blood sugar one to two times per day. E11.9 200 Strip 3 07/03/2022 Active OneTouch Delica Lancets 33GIndications:Type 2 [...] breast (HCC),CLL (chronic lymphocytic leukemia) ([facility]) Take 1 Tablet by mouth in the [...] evening meals. 360 Tablet 3 10/09/2022 Active documented as of this encounter (statuses as of 10/23/2022) Active Problems Problem Noted Date Osteoporosis with [...] sinus infections 05/25/2016 Overview: 05/23>Saw ENT in [place]; CT 2 yrs ago- moved [place] -02/19--zpak,pred 03/22, pred 04/21;doxy 05/23--not on nasacort daily-resume and + claritin Preoperative general physical examinatio n 05/25/2016 Overview: 07/21-l-m risk--0.3/-1.7--rpt 3 yrs Type 2 diabetes mellitus wit hout complication, without long-term current use of insulin 04/10/2016 HTN, goal below 140/90 04/10/2016 Dyslipidemia 04/10/2016 Acquired hypothyroidism 04/10/2016 documented as of this encounter (statuses as of 10/23/2022) Resolved Problems Problem Noted Date Resolved Date Mammographic microcalcification 10/19/2016 08/13/2018 Overview: 12/21--scattered fibroglandular densities (25% - 50% fibroglandular), dystrophic ca+-rpt 1 yr Closed fracture of proximal end of right humerus with routine healing 10/19/2016 07/23/2018 Overview: 07/25/16 Encounter for screening mammogram for breast can cer 05/25/2016 07/23/2018 Overview: 05/2015 [place] Screen for colon cancer 05/25/2016 07/24/19 19 Overview: csope-- 10/05/14- nl, gr 1 IH> At [place]--rpt 10 yrs documented as of this encounter (statuses as of 10/23/2022) Immunizations Name Administration Dates Next Due COVID-19 [...] Encounters Date Type Specialty Care Team Description 11/13/2022 Office Visit Pharmacy Pharmacist2, [facility] 200 [place] [address] 11/17/2022 Nutrition Services Nutrition Services Monica Perry RDN [address] [place] [address] 12/13/2022 Office Visit Hematology Oncology Macey Cruz MD 200 [place] [address] 02/01/2023 Office Visit General Surgery Myke Pulliam MD [address] [place] [address] 03/14/2023 Office Visit Family Medicine Annabella Victoria DO [address] [place] [address] 03/27/2023 Office Visit Cardiology Kimmy López DO [address] [place] [phone] 09/25/2023 Cardiac Studies Cardiology [facility], [address] [place] [address] Health Maintenance Due Date Last Done Comments COVID-19 Vaccine (4 - Booster) 03/31/2022 02/03/2022, 10/28/2021, 03/02/2021, Additional history exists Albumin/Creatinine Ratio 05/10/2022 022, 09/27/2017, 07/04/2016 Yearly B-12 08/09/2022 08/09/2021, 10/06, 07/12/2020, Additional history exists DIABETES-EYE EXAM 08/15/2022 08/15/2021, , 07/15/2019, Additional history exists TSH 02/09/2023 02/09/2022, 10/06, 08/20/2019, Additional history exists HbA1c 02/27/2023 08/28/2022, 12/01/2022, 12/08/2021, Additional history exists DIABETES-FOOT EXAM 09/07/2023 09/06/2022, 0 08/10/2021, 11/03/2020, Additional history exists Depression Screening, Annual for Pts 12 and Over 09/07/2023 09/06/2022 GFR 09/12/2023 09/11/2022, 10/0 10/2021, 08/24/2021, Additional history exists DTaP,Tdap,and Td Vaccines (2 - Td or Tdap) 05/26/2025 05/26/2015 DXA Scan 10/18/2029 10/18/2022, 07/06, 02/19/2012 Pneumococcal Vaccine: 65+ Years Completed 05/19/2014, 09/17/2012, [...] this encounter Medical Devices Implanted Type Area Physician Scribe Device Identifier Shelf Expiration Date Model / Serial / Lot Lens Intraoc 19.0 - [id number] - [id number] Implanted:Qty: 1 on 12/13/2021 by Mitchell Guzman MD at OR [facility] Left: Eye [employer] LOMB 06/06/2026 [id number] / [id number] / [id number] Lens Intraoc 19.0 - [id number] - [id number] Implanted:Qty: 1 on 12/27/2021 by Mitchell Guzman MD at OR [facility] Right: Eye BAUSCH [employer] LOMB 06/06/2026 [id number] / [id number] / [id number] documented as of this encounter Advance Directives [...] the patient have Health Care Power of Routing Machine Operator? No Code Status History Code Status Date Activated Date Inactivated Comments No Code 12/13/2021 6:43 AM 12/13/2021 1:23 PM This or tim reflects the patients wishes and were consensually agreed upon. Question Answer Comments Discussion of Advance Directives occurred with: Patient Does the patient have a Living Will? No Does the patient have Health Care Power of Routing Machine Operator? No Care Teams Talent Acquisition Specialist Relationship Specialty Start Date End Date Annabella Victoria DO [address] [place] [address] PCP - General Family Medicine 07/19/17 documented as of this encounter
--- OUTSIDE RECORDS SUMMARY | 2023-04-09 09:49 | External Medical Summary | Summary of Care ---
Author Name Unknown Organization [facility] Address [address] [place] [address] Phone [phone] Care Team Providers Care Supervisor Tree Trimming Name Role Phone Annabella Vitcoria DO Primary Care Provider [phone] Reason for Visit * Reason Onset Date Comments Test Results Lab 10/23/2022 Encounter Details Date Type Department Care Team Description 10/23/2022 Telephone Hematology/Oncology [facility] 200 [place] [address] Macey Cruz MD 200 [place] [address] Test Results Lab Allergies Active Allergy Reactions [...] less than 8.0% ([facility]) Use as directed. Test Blood sugar one to two times per day. E11.9 1 Kit 0 07/03/2022 Active OneTouch Verio In Vitro Strip (Glucose Blood)Indications:Typ e 2 diabetes mellitus with hemoglobin A1c goal of less than 8.0% ([facility]) Test Blood sugar one to two times per day. E11.9 200 Strip 3 07/03/2022 Active PrivepassTouch Delica Lancets 33GIndications:Type 2 diabetes mellitus with hemoglobin A1c goal of less than 8.0% ([facility]) Test Blood sugar one to two times [...] long-term current use of insulin ([facility]),Dyslipidemia Take 1 Tablet by mouth in the morning. 90 Tablet 3 09/06/2022 Active Letrozole 2.5 MG Oral Tablet (Femara)Indications:I nfiltrating ductal carcinoma of left breast ([facility]),CLL (chronic lymphocytic leukemia) (HCC) Take 1 Tablet [...] sinus infections 05/25/2016 Overview: 05/23>Saw ENT in [place]; CT 2 yrs ago- moved [place] -02/19--zpak,pred [...] breast can cer 05/25/2016 07/23/2018 Overview: 05/2015 [place] Screen for colon cancer 05/25/2016 07/24/19 19 Overview: csope-- 10/05/14- nl, gr 1 IH> At [place]--rpt 10 yrs documented as of this encounter [...] AM EDT Order received for prolia 60mg, [place] created and routed to provider for signature. [...] Team Description 11/13/2022 Office Visit Pharmacy Pharmacist2, [facility] [address] [place] [address] 11/17/2022 Nutrition Services Nutrition Services Monica Perry, LEON [address] [place] [address] 12/13/2022 Office Visit Hematology Oncology Macey Cruz MD 200 [place] [address] 02/01/2023 Office Visit General Surgery Myke Pulliam MD [address] [place] [address] 03/14/2023 Office Visit Family Medicine Annabella Victoria DO [address] [place] [address] 03/27/2023 Office Visit Cardiology Kimmy López, DO [address] [facility] [place] [phone] 09/25/2023 Cardiac Studies Cardiology Dania Hussein [facility] [address] [place] [address] Scheduled Orders Name Type Priority Associated Diagnoses [...] 09/12/2023 09/11/2022, 10/10/2021, 08/24/2021, Additional history exists DTaP,Tdap,and Td Vaccines [...] this encounter Medical Devices Implanted Type Area Blender Snuff Device Identifier Shelf Expiration Date Model / Serial / Lot Lens Intraoc 19.0 - [id number] - [id number] Implanted:Qty: 1 on 12/13/2021 by Mitchell Guzman MD at OR [facility] Left: Eye [employer]CH [employer] LOMB 06/06/2026 [id number] / [id number] / [id number] Lens Intraoc 19.0 - [id number] - [id number] Implanted:Qty: 1 on 12/27/2021 by Mitchell Guzman MD at OR [facility] Right: Eye BAUSCH [employer] LOMB 06/06/2026 [id number] / [id number] / [id number] documented as of this encounter Visit Diagnoses [...] the patient have Health Care Power of Manager Willow? No Code Status History Code Status Date Activated Date Inactivated Comments No Code 12/13/2021 6:43 AM 12/13/2021 1:23 PM This or tim reflects the patients wishes and were consensually agreed upon. Question Answer Comments Discussion of Advance Directives occurred with: Patient Does the patient have a Living Will? No Does the patient have Health Care Power of Manager Willow? No Care Teams Supervisor Tree Trimming Relationship Specialty Start Date End Date Annabella Victoria, DO [address] [place] [address] PCP - General Family Medicine 07/19/17 documented as of this encounter
--- OUTSIDE RECORDS SUMMARY | 2023-04-09 09:49 | External Medical Summary | Summary of Care ---
Author Name Unknown Organization [facility] Address [address] [place] [address] Phone [phone] Care Team Providers Care Crepe Machine Operator Name Role Phone Annabella Victoria DO Primary Care Provider +[phone] Reason for Visit * Reason Onset Date Comments Test Results Lab 10/23/2022 Encounter Details Date Type Department Care Team Description 10/23/2022 Telephone Hematology/Oncology [facility] [place] [address] [facility] [place] [address] Macey Cruz MD [address] [place] [address] Test Results Lab Allergies Active Allergy Reactions Severity Noted Date Comments Pollen Other (Please comment) 03/22/2016 Itchy, inflamed eyes Penicillins Rash 03/22/2016 Sulfa Antibiotics Nausea/vomiting 03/22/2016 documented as of this encounter (statuses as of 10/31/2022) Medications Medication Sig Dispensed Refills Start Date [...] 8.0% ([facility]) Test Blood sugar one to two times per day. E11.9 200 Strip 3 07/03/2022 Active [employer] Holding[employer] Delica Lancets 33GIndications:Type 2 diabetes mellitus with hemoglobin A1c goal of less than 8.0% ([facility]) Test Blood sugar one to two times [...] long-term current use of insulin ([facility]),Dyslipidemia Take 1 Tablet by mouth in the morning. 90 Tablet 3 09/06/2022 Active Letrozole 2.5 MG Oral Tablet (Femara)Indications:I nfiltrating ductal carcinoma of left breast ([facility]),CLL (chronic lymphocytic leukemia) (HCC) Take 1 Tablet [...] as of this encounter (statuses as of 10/31/2022) Active Problems Problem Noted Date Osteoporosis with [...] sinus infections 05/25/2016 Overview: 05/23>Saw ENT in [place]; CT 2 yrs ago- moved [place] -02/19--zpak,pred 03/22, pred 04/21;doxy 05/23--not on nasacort daily-resume and + claritin Preoperative general physical examinatio n 05/25/2016 Overview: 07/21-l-m risk--0.3/-1.7--rpt 3 yrs Type 2 diabetes mellitus wit hout complication, without long-term current use of insulin 04/10/2016 HTN, goal below 140/90 04/10/2016 Dyslipidemia 04/10/2016 Acquired hypothyroidism 04/10/2016 documented as of this encounter (statuses as of 10/31/2022) Resolved Problems Problem Noted Date Resolved Date Mammographic microcalcification 10/19/2016 08/13/2018 Overview: 12/21--scattered fibroglandular densities (25% - 50% fibroglandular), dystrophic ca+-rpt 1 yr Closed fracture of proximal end of right humerus with routine healing 10/19/2016 07/23/2018 Overview: 07/25/16 Encounter for screening mammogram for breast can cer 05/25/2016 07/23/2018 Overview: 05/2015 [place] Screen for colon cancer 05/25/2016 07/24/19 19 Overview: csope-- 10/05/14- nl, gr 1 IH> At [place]--rpt 10 yrs documented as of this encounter (statuses as of 10/31/2022) Immunizations Name Administration Dates Next Due COVID-19 [...] AM EDT Order received for prolia 60mg, [place] created and routed to provider for signature. [...] Description 11/17/2022 Nutrition Services Nutrition Services Monica Perry RDN [address] [place] [address] 12/13/2022 Office Visit Hematology Oncology Macey Cruz MD 200 [facility] [place] [address] 12/18/2022 Office Visit Pharmacy Pharmacist2, [facility] [address] [place] [address] 02/01/2023 Office Visit General Surgery Myke Pulliam MD [address] [place] [address] 03/14/2023 Office Visit Family Medicine Annabella Victoria DO [address] [place] [address] 03/27/2023 Office Visit Cardiology Kimmy López DO [address] [place] [address] 09/25/2023 Cardiac Studies Cardiology Dania Hussein [facility] [address] [place] [address] Scheduled Orders Name Type Priority Associated Diagnoses [...] D LEVEL ONCE IN A LIFETIME-USE SMARTSET# [id number] 1981 COVID-19 Vaccine (4 - Booster) 03/31/2022 [...] encounter Medical Devices Implanted Type Area Senior System Operator Device Identifier Shelf Expiration Date Model / Serial / Lot Lens Intraoc 19.0 - [id number] - [id number] Implanted:Qty: 1 on 12/13/2021 by Mitchell Guzman MD at OR [facility] Left: Eye [employer] LOMB 06/06/2026 [id number] / [id number] / [id number] Lens Intraoc 19.0 - [id number] - [id number] Implanted:Qty: 1 on 12/27/2021 by Mitchell Guzman MD at OR [facility] Right: Eye BAUSCH & LOMB 06/06/2026 [id number] / [id number] / [id number] documented as of this encounter Visit Diagnoses [...] the patient have Health Care Power of Commodity Loan Clerk? No Code Status History Code Status Date Activated Date Inactivated Comments No Code 12/13/2021 6:43 AM 12/13/2021 1:23 PM This or tim reflects the patients wishes and were consensually agreed upon. Question Answer Comments Discussion of Advance Directives occurred with: Patient Does the patient have a Living Will? No Does the patient have Health Care Power of Commodity Loan Clerk? No Care Teams Crepe Machine Operator Relationship Specialty Start Date End Date Annabella Victoria, [address] [place] [address] PCP - General Family Medicine 07/19/17 documented as of this encounter
--- OUTSIDE RECORDS SUMMARY | 2023-04-09 09:49 | External Medical Summary | Summary of Care ---
Author Name Unknown Organization [facility] Address [address] [place] [address] Phone [phone] Care Team Providers Care Low Raw Sugar Cutter Name Role Phone Annabella Victoria DO Primary Care Provider [phone] Reason for Visit * Reason Onset Date Comments Test Results Lab 10/23/2022 Encounter Details Date Type Department Care Team Description 10/23/2022 Telephone Hematology/Oncology [facility] [address] [place] [address] Macey Cruz MD 200 [place] [address] Test Results Lab Allergies Active Allergy Reactions [...] hemoglobin A1c goal of less than 8.0% ([facility]) Use as directed. Test Blood sugar one to two times per day. E11.9 1 Kit 0 07/03/2022 Active OneTouch Verio In Vitro Strip (Glucose Blood)Indications:Typ e 2 diabetes mellitus with hemoglobin A1c goal of less than 8.0% ([facility]) Test Blood sugar one to two times per day. E11.9 200 Strip 3 07/03/2022 Active ImplanetTouch Delica Lancets 33GIndications:Type 2 diabetes mellitus with hemoglobin A1c goal of less than 8.0% ([facility]) Test Blood sugar one to two times [...] complication, without long-term current use of insulin ([facility]),Dyslipidemia Take 1 Tablet by mouth in the morning. 90 Tablet 3 09/06/2022 Active Letrozole 2.5 MG Oral Tablet (Femara)Indications:I nfiltrating ductal carcinoma of left breast ([facility]),CLL (chronic lymphocytic leukemia) (HCC) Take 1 Tablet [...] sinus infections 05/25/2016 Overview: 05/23>Saw ENT in [place]; CT 2 yrs ago- moved [place] -02/19--zpak,pred [...] breast can cer 05/25/2016 07/23/2018 Overview: 05/2015 [place] Screen for colon cancer 05/25/2016 07/24/19 19 Overview: csope-- 10/05/14- nl, gr 1 IH> At [place]--rpt 10 yrs documented as of this encounter [...] AM EDT Order received for prolia 60mg, [place] created and routed to provider for signature. [...] Team Description 11/13/2022 Office Visit Pharmacy Pharmacist2, [facility] 200 [place] [address] 11/17/2022 Nutrition Services Nutrition Services Monica Perry, RDN [address] [place] [address] 12/13/2022 Office Visit Hematology Oncology Macey Cruz MD 200 [place] [address] 02/01/2023 Office Visit General Surgery Myke Pulliam MD [address] [place] [address] 03/14/2023 Office Visit Family Medicine Annabella Victoria DO [address] [place] [address] 03/27/2023 Office Visit Cardiology Kimmy López, DO [address] [facility] [place] [address] 09/25/2023 Cardiac Studies Cardiology Dania Hussein [facility] [address] [place] [address] Scheduled Orders Name Type Priority Associated Diagnoses [...] this encounter Medical Devices Implanted Type Area Chief Compressor Station Engineer Device Identifier Shelf Expiration Date Model / Serial / Lot Lens Intraoc 19.0 - [id number] - [id number] Implanted:Qty: 1 on 12/13/2021 by Mitchell Guzman MD at OR [facility] Left: Eye [employer]CH [employer] LOMB 06/06/2026 [id number] / [id number] / [id number] Lens Intraoc 19.0 - [id number] - [id number] Implanted:Qty: 1 on 12/27/2021 by Mitchell Guzman MD at OR [facility] Right: Eye BAUSCH [employer] LOMB 06/06/2026 [id number] / [id number] / [id number] documented as of this encounter Visit Diagnoses [...] the patient have Health Care Power of Lacer And Tier? No Code Status History Code Status Date Activated Date Inactivated Comments No Code 12/13/2021 6:43 AM 12/13/2021 1:23 PM This or tim reflects the patients wishes and were consensually agreed upon. Question Answer Comments Discussion of Advance Directives occurred with: Patient Does the patient have a Living Will? No Does the patient have Health Care Power of Lacer And Tier? No Care Teams Low Raw Sugar Cutter Relationship Specialty Start Date End Date Annabella Victoria, [address] [place] [address] PCP - General Family Medicine 07/19/17 documented as of this encounter
--- OUTSIDE RECORDS SUMMARY | 2023-04-09 09:49 | External Medical Summary | Summary of Care ---
Author Name Unknown Organization [facility] Address [address] [place] [address] Phone [phone] Care Team Providers Care Rn Managed Care Name Role Phone Annabella Victoria DO Primary Care Provider [phone] Reason for Visit * Reason Onset Date Comments Test Results Lab 10/23/2022 Encounter Details Date Type Department Care Team Description 10/23/2022 Telephone Hematology/Oncology [facility] [place] 200 [facility] [place] [address] Macey Cruz MD [address] [place] [address] Test Results Lab Allergies Active Allergy Reactions Severity Noted Date Comments Pollen Other (Please comment) 03/22/2016 Itchy, inflamed eyes Penicillins Rash 03/22/2016 Sulfa Antibiotics Nausea/vomiting 03/22/2016 documented as of this encounter (statuses as of 11/06/2022) Medications Medication Sig Dispensed Refills Start Date [...] hemoglobin A1c goal of less than 8.0% ([facility]) Inject under the skin 1.5 mg once a week . Do not start before April 03, 2022. 6 mL 3 04/03/2022 Active OneTouch Verio Reflect w/Device KitIndications:Type 2 diabetes mellitus with hemoglobin A1c goal of less than 8.0% ([facility]) Use as directed. Test Blood sugar one to two times per day. E11.9 1 Kit 0 07/03/2022 Active OneTouch Delica Lancets 33GIndications:Type 2 diabetes mellitus with hemoglobin A1c goal of less than 8.0% ([facility]) Test Blood sugar one to [...] hemoglobin A1c goal of less than 8.0% ([facility]) Test Blood sugar one to two times per day. E11.9 200 Strip 3 07/03/2022 3 Discontinue d(Refill) documented as of this encounter (statuses as of 11/06/2022) Active Problems Problem Noted Date Osteoporosis with [...] sinus infections 05/25/2016 Overview: 05/23>Saw ENT in [place]; CT 2 yrs ago- moved [place] -02/19--zpak,pred 03/22, pred 04/21;doxy 05/23--not on nasacort daily-resume and + claritin Preoperative general physical examinatio n 05/25/2016 Overview: 07/21-l-m risk--0.3/-1.7--rpt 3 yrs Type 2 diabetes mellitus wit hout complication, without long-term current use of insulin 04/10/2016 HTN, goal below 140/90 04/10/2016 Dyslipidemia 04/10/2016 Acquired hypothyroidism 04/10/2016 documented as of this encounter (statuses as of 11/06/2022) Resolved Problems Problem Noted Date Resolved Date Mammographic microcalcification 10/19/2016 08/13/2018 Overview: 12/21--scattered fibroglandular densities (25% - 50% fibroglandular), dystrophic ca+-rpt 1 yr Closed fracture of proximal end of right humerus with routine healing 10/19/2016 07/23/2018 Overview: 07/25/16 Encounter for screening mammogram for breast can cer 05/25/2016 07/23/2018 Overview: 05/2015 [place] Screen for colon cancer 05/25/2016 07/24/19 19 Overview: csope-- 10/05/14- nl, gr 1 IH> At [place]--rpt 10 yrs documented as of this encounter (statuses as of 11/06/2022) Immunizations Name Administration Dates Next Due COVID-19 [...] as of this encounter Miscellaneous Notes * Addendum Note - Tia Moeller LPN - 11/06/2022 1:47 PM EDTAddended by: TIA MOELLER on: 11/06/2022 01:47 PM Modules accepted: Orders * Telephone Encounter - Tia Moeller LPN - 11/06/2022 1:[address] Cruz responds "We can request the labs. Hold the injection until she complete her dental workup " Placed order for [id number]. CMP, phos and cbcd orders already placed. Sent patient and daughtr a [employer] message with Dr. Cruz's response. * Telephone Encounter - Tia Moeller LPN - 11/02/2022 3:[address] Cruz: Patient would like to wait on prolia until after radiation, she also needs dental work. Patient's daughter wrote "I almost forgot. Her dental filling fell out 2 weeks ago. We contacted the building maintenance superintendent's office to let them know as we [...] AM EDT Order received for prolia 60mg, [place] created and routed to provider for signature. [...] Perry, RDN [address] [place] [address] 11/24/2022 Office Visit Family Medicine Jacey Dunn CRNP [address] [place] [address] 12/13/2022 Office Visit Hematology Oncology [facility] MD [address] [facility] [address] 12/18/2022 Office Visit [facility] Pharmacist2, [facility] [address] 02/01/2023 Office Visit General Surgery Myke Pulliam MD [address] [place] [address] 03/14/2023 Office Visit Family Medicine Annabella Victoria DO [address] [place] [address] 03/27/2023 Office Visit Cardiology Kimmy López DO [address] [place] [id number] 09/25/2023 Cardiac Studies Cardiology Dania Hussein [facility] [address] [place] [address] Scheduled Orders Name Type Priority Associated Diagnoses [...] D LEVEL ONCE IN A LIFETIME-USE SMARTSET# [id number] 1981 COVID-19 Vaccine (4 - Booster) 03/31/2022 [...] this encounter Medical Devices Implanted Type Area Casing Man Device Identifier Shelf Expiration Date Model / Serial / Lot Lens Intraoc 19.0 - [id number] - [id number] Implanted:Qty: 1 on 12/13/2021 by Mitchell Guzman MD at OR [facility] Left: Eye BAUSCH & LOMB 06/06/2026 [id number] / [id number] / [id number] Lens Intraoc 19.0 - [id number] - [id number] Implanted:Qty: 1 on 12/27/2021 by Mitchell Guzman MD at OR [facility] Right: Eye BAUSCH & LOMB 06/06/2026 [id number] / [id number] / [id number] documented as of this encounter Visit Diagnoses [...] the patient have Health Care Power of Fiberglass Laminator? No Code Status History Code Status Date Activated Date Inactivated Comments No Code 12/13/2021 6:43 AM 12/13/2021 1:23 PM This or tim reflects the patients wishes and were consensually agreed upon. Question Answer Comments Discussion of Advance Directives occurred with: Patient Does the patient have a Living Will? No Does the patient have Health Care Power of Fiberglass Laminator? No Care Teams Rn Managed Care Relationship Specialty Start Date End Date Annabella Victoria, [address] [place] [address] PCP - General Family Medicine 07/19/17 documented as of this encounter
--- OUTSIDE RECORDS SUMMARY | 2023-04-09 09:49 | External Medical Summary | Summary of Care ---
Author Name Unknown Organization [facility] Address [address] [place] [address] Phone [phone] Care Team Providers Care Platform Software Engineer Name Role Phone Annabella Victoria DO Primary Care Provider [phone] Reason for Visit * Reason Onset Date Comments Test Results Lab 10/23/2022 Encounter Details Date Type Department Care Team Description 10/23/2022 Telephone Hematology/Oncology [facility] [place] 200 [facility] [place] [address] Macey Cruz MD [address] [place] [address] Test Results Lab Allergies Active Allergy Reactions Severity Noted Date Comments Pollen Other (Please comment) 03/22/2016 Itchy, inflamed eyes Penicillins Rash 03/22/2016 Sulfa Antibiotics Nausea/vomiting 03/22/2016 documented as of this encounter (statuses as of 10/27/2022) Medications Medication Sig Dispensed Refills Start Date [...] than 8.0% ([facility]) Use as directed. Test Blood sugar one to two times per day. E11.9 1 Kit 0 07/03/2022 Active OneTouch Verio In Vitro Strip (Glucose Blood)Indications:Typ e 2 diabetes mellitus with hemoglobin A1c goal of less than 8.0% ([facility]) Test Blood sugar one to two times per day. E11.9 200 Strip 3 07/03/2022 Active [employer] FashionsTouch Delica Lancets 33GIndications:Type 2 diabetes mellitus with hemoglobin A1c goal of less than 8.0% ([facility]) Test Blood sugar one to two times [...] without long-term current use of insulin ([facility]),Dyslipidemia Take 1 Tablet by mouth in the morning. 90 Tablet 3 09/06/2022 Active Letrozole 2.5 MG Oral Tablet (Femara)Indications:I nfiltrating ductal carcinoma of left breast ([facility]),CLL (chronic lymphocytic leukemia) (HCC) Take 1 Tablet [...] as of this encounter (statuses as of 10/27/2022) Active Problems Problem Noted Date Osteoporosis with [...] infections 05/25/2016 Overview: 05/23>Saw ENT in [place]; CT 2 yrs ago- moved [place] -02/19--zpak,pred 03/22, pred 04/21;doxy 05/23--not on nasacort daily-resume and + claritin Preoperative general physical examinatio n 05/25/2016 Overview: 07/21-l-m risk--0.3/-1.7--rpt 3 yrs Type 2 diabetes mellitus wit hout complication, without long-term current use of insulin 04/10/2016 HTN, goal below 140/90 04/10/2016 Dyslipidemia 04/10/2016 Acquired hypothyroidism 04/10/2016 documented as of this encounter (statuses as of 10/27/2022) Resolved Problems Problem Noted Date Resolved Date Mammographic microcalcification 10/19/2016 08/13/2018 Overview: 12/21--scattered fibroglandular densities (25% - 50% fibroglandular), dystrophic ca+-rpt 1 yr Closed fracture of proximal end of right humerus with routine healing 10/19/2016 07/23/2018 Overview: 07/25/16 Encounter for screening mammogram for breast can cer 05/25/2016 07/23/2018 Overview: 05/2015 [place] Screen for colon cancer 05/25/2016 07/24/19 19 Overview: csope-- 10/05/14- nl, gr 1 IH> At [place]--rpt 10 yrs documented as of this encounter (statuses as of 10/27/2022) Immunizations Name Administration Dates Next Due COVID-19 [...] AM EDT Order received for prolia 60mg, [place] created and routed to provider for signature. [...] Monica Perry, RDN [address] [place] [address] 12/13/2022 Office Visit Hematology Oncology Macey Cruz MD 200 [facility] [place] [address] 12/18/2022 Office Visit Pharmacy Pharmacist2, [facility] 200 [facility] [place] [address] 02/01/2023 Office Visit General Surgery Myke Pulliam MD [address] [place] [address] 03/14/2023 Office Visit Family Medicine Annabella Victoria DO [address] [place] [address] 03/27/2023 Office Visit Cardiology [facility]my L[facility]pez DO [address] [facility] [place] [address] 09/25/2023 Cardiac Studies Cardiology Dania [facility] [address] [place] [address] Scheduled Orders Name Type Priority Associated Diagnoses [...] D LEVEL ONCE IN A LIFETIME-USE SMARTSET# [id number] 1981 COVID-19 Vaccine (4 - Booster) 03/31/2022 [...] 09/12/2023 09/11/2022, 10/10/2021, 08/24/2021, Additional history exists DXA Scan 10/18/2024 [...] this encounter Medical Devices Implanted Type Area Cabinet Mounter Device Identifier Shelf Expiration Date Model / Serial / Lot Lens Intraoc 19.0 - [id number] - [id number] Implanted:Qty: 1 on 12/13/2021 by Mitchell Guzman MD at OR [facility] Left: Eye BAUSCH [employer] LOMB 06/06/2026 [id number] / [id number] / [id number] Lens Intraoc 19.0 - [id number] - [id number] Implanted:Qty: 1 on 12/27/2021 by Mitchell Guzman MD at OR [facility] Right: Eye BAUSCH & LOMB 06/06/2026 [id number] / [id number] / [id number] documented as of this encounter Visit Diagnoses [...] the patient have Health Care Power of Senior Business Development Manager? No Code Status History Code Status Date Activated Date Inactivated Comments No Code 12/13/2021 6:43 AM 12/13/2021 1:23 PM This or tim reflects the patients wishes and were consensually agreed upon. Question Answer Comments Discussion of Advance Directives occurred with: Patient Does the patient have a Living Will? No Does the patient have Health Care Power of Senior Business Development Manager? No Care Teams Platform Software Engineer Relationship Specialty Start Date End Date Annabella Victoria, [address] [place] [address] PCP - General Family Medicine 07/19/17 documented as of this encounter
--- OUTSIDE RECORDS SUMMARY | 2023-04-09 09:49 | External Medical Summary ---
Author Name Unknown Address Unknown Organization K01:[facility] [place] [address] [place] [address] Laboratory Report Ordering Provider Test Date Status PERLA WILSON 11/14/2022 11:10:50 Final Observation Date Value Abnormality Reference (Units ) Status Vitamin B12 11/14/2022 11:10:50 196 Below low normal 2 32-1245 (pg/mL) Final Performing Location LABORATORY C - [address] [place] [address]
--- OUTSIDE RECORDS SUMMARY | 2023-04-09 09:50 | External Medical Summary | Summary of Care ---
Author Name Unknown Organization [facility] Address [address] [place] [address] Phone [phone] Care Team Providers [facility] Hand Name Role Phone Annabella Victoria DO Primary Care Provider [phone] Encounter Details Date Type Department Care Team Description 10/23/2022 Orders Only Hematology/Oncology [facility] [address] [place] [address] Macey Cruz MD [address] [place] [address] Infiltrating ductal carcinoma of left breast (HCC)*; Osteoporosis with symptom management only Allergies Active [...] complication, without long-term current use of insulin ([facility]),Dyslipidemia Take 1 Tablet by mouth in the morning. 90 Tablet 3 09/06/2022 Active Letrozole 2.5 MG Oral Tablet ([facility]em[facility])Indications:I nfiltrating ductal carcinoma of left breast ([facility]),CLL (chronic lymphocytic leukemia) (HCC) Take 1 Tablet [...] of 10/23/2022) Active Problems Problem Noted Date Infiltrating ductal carcinoma of left br east [...] sinus infections 05/25/2016 Overview: 05/23>Saw ENT in [place]; CT 2 yrs ago- moved [place] -02/19--zpak,pred [...] csope-- 10/05/14- nl, gr 1 IH> At [place]--rpt 10 yrs documented as of this encounter [...] Team Description 11/13/2022 Office Visit Pharmacy Pharmacist2, [facility] [address] [place] [address] 11/17/2022 Nutrition Services Nutrition Services Monica Perry, LEON [address] [place] [address] 12/13/2022 Office Visit Hematology Oncology Macey Cruz MD [address] [place] [address] 02/01/2023 Office Visit General Surgery Myke Pulliam MD [address] [place] [address] 03/14/2023 Office Visit Family Medicine Annabella Victoria DO [address] [place] [address] 03/27/2023 Office Visit Cardiology Kimmy López DO [address] [place] [id number] 09/25/2023 Cardiac Studies Cardiology Jovita [address] [place] [address] Health Maintenance Due Date Last Done Comments [...] this encounter Medical Devices Implanted Type Area Uniform Cap Operator Device Identifier Shelf Expiration Date Model / Serial / Lot Lens Intraoc 19.0 - [id number] - [id number] Implanted:Qty: 1 on 12/13/2021 by Mitchell Guzman MD at [facility] Left: Eye [employer] 06/06/2026 [id number] / [id number] / [id number] Lens Intraoc 19.0 - [id number] - [id number] Implanted:Qty: 1 on 12/27/2021 by Mitchell Guzman MD at [facility] Right: Eye [employer] 06/06/2026 [id number] / [id number] / [id number] documented as of this encounter Visit Diagnoses [...] the patient have Health Care Power of Global Sourcing Manager? No Code Status History Code Status Date Activated Date Inactivated Comments No Code 12/13/2021 6:43 AM 12/13/2021 1:23 PM This or tim reflects the patients wishes and were consensually agreed upon. Question Answer Comments Discussion of Advance Directives occurred with: Patient Does the patient have a Living Will? No Does the patient have Health Care Power of Global Sourcing Manager? No Care Teams [facility] Hand Relationship Specialty Start Date End Date Annabella Victoria, DO [address] [place] [address] PCP - General Family Medicine 07/19/17 documented as of this encounter
--- NOTE | 2023-04-09 09:56 | XRay Report ---
XR chest 1V portable HISTORY: Sepsis COMPARISON: Chest 08/13/2022. FINDINGS: No pneumothorax. No pleural effusions. The cardiac silhouette remains mildly enlarged. Ther e is a left-sided dual-chamber pacemaker. The left lung is clear. There is a patchy right upper lobe airspace opacity which is new from the prior study. IMPRESSION: There is a new patchy right upper lobe airspace opacity. This likely represents a pneumonia. Recommen d one month chest x-ray follow-up to ensure resolution. ACT 112: Negative or not required by law. Electronically signed by: Davy Arriaga M.D. 04/09/2023 9:55 AM
--- NOTE | 2023-04-09 09:58 | XRay Report ---
XR shoulder RT min 2V routine CLINICAL HISTORY: Fall. Right shoulder pain. COMPARISON STUDY: Right shoulder 07/26/2016. FINDINGS: There is an old, healed right humeral neck fracture. No acute fracture or dislocation withi n the right shoulder. The right clavicle appears intact. Patchy right upper lobe airspace opacity aga in noted. Moderate degenerative changes within the right shoulder. Left-sided pacemaker. IMPRESSION: 1. Old, healed right humeral neck fracture again noted. 2. No acute fracture or dislocation within the right shoulder. 3. Patchy right upper lobe airspace opacities are better appreciated on the same day chest x-ray. ACT 112: Negative or not required by law. Electronically signed by: Davy Arriaga M.D. 04/09/2023 9:57 AM
[2023-04-09 10:03] LABS: Basophils # (auto) 0.03 K/uL (0.00-0.20); Basophils % (auto) 0.2 %; Hematocrit (blood only) 40.8 % (37.0-47.0); Hemoglobin 14.1 g/dl (12.0-16.0); Immature Granulocytes # (auto) 0.16 K/uL (0.01-0.20); Lymphocytes # (auto) 2.73 K/uL (1.20-3.40); Lymphocytes % (auto) 16.9 %; Mean Corpuscular Hemoglobin 29.8 pg (25.0-34.0); Mean Corpuscular Hgb Conc 34.6 g/dL (32.0-36.0); Mean Corpuscular Volume 86.3 fL (80.0-100.0); Mean Platelet Volume 11.8 fL (9.4-12.4); Monocytes # (auto) 0.98 K/uL (0.11-0.59); Monocytes % (auto) 6.1 %; Neutrophils # (auto) 12.21 K/uL (1.40-6.50); Neutrophils % (auto) 75.8 %; Platelet Count 188 K/uL (130-400); RDW Coefficient of Variation 13.6 % (11.5-14.5); RDW Standard Deviation 43.2 fL (36.4-46.3); Red Blood Count 4.73 M/uL (4.20-5.40); White Blood Count 16.11 K/ul (4.8-10.8)
--- NOTE | 2023-04-09 10:56 | CT Scan Report ---
CT SCAN OF THE BRAIN WITHOUT IV CONTRAST CLINICAL HISTORY: Fall. Head injury. COMPARISON STUDY: CT of the brain dated 08/14/2022. TECHNIQUE: Unenhanced axial CT scan of the brain is performed from the vertex to the skull base. A do se lowering technique was utilized adhering to the principles of ALARA. CT DOSE: 703.85 mGy.cm FINDINGS: Brain parenchyma: There is age-related involutional change noting moderate subcortical and periventri cular microangiopathic disease. There is no hemorrhage, mass effect, or evidence of acute territorial ischemia by CT criteria. Bell-white matter differentiation is preserved. No extra-axial fluid collec tion is seen. Ventricles, sulci, cisterns: Prominent secondary to involutional change. Intracranial vasculature: There is atherosclerotic calcification of the cavernous carotid and vertebr al arteries. Calvarium: The skeletal structures are osteopenic. No depressed calvarial fracture is seen. Sinuses and mastoids: The visualized paranasal sinuses are clear. The mastoid air cells are well pneu matized. Orbits: The bony orbits are grossly intact. There are bilateral ocular lens implants. IMPRESSION: There is no hemorrhage, mass effect, or evidence of acute territorial ischemia by CT juanis arias. ACT 112: Negative or not required by law. Electronically signed by: Gerhard Orta M.D. 04/09/2023 10:54 AM
[2023-04-09 11:10] LABS: Appearance Urine Clear (Clear); Bacteria Urine Automated 4+ (Negative); Bilirubin Urine Negative (Negative); Blood Urine 2+ (Negative); Color Urine Yellow; Epithelial Cell Urine Auto 0-5 /lpf (0-5); Glucose Urine UA 3+ (Negative); Ketones Urine 2+ (Negative); Leukocyte Esterase Urine Trace (Negative); Nitrite Urine Positive (Negative); Protein Urine 2+ (Negative); RBC Urine Automated 0-4 /hpf (0-4); Specific Gravity Urine 1.026 (1.000-1.030); Urobilinogen Urine Negative (Negative); WBC Urine Automated >30 /hpf (0-5); pH Urine 5.5 (4.5-7.5)
[2023-04-09] MEDS ORDERED: cefTRIAXone SODIUM 2,000 MG/50 ML BAG IV STA (11:28)
[2023-04-09] MEDS ORDERED: DOXYCYCLINE HYCLATE 100 MG in DEXTROSE 5% MINI-B 100 ML IV STA (11:46)
[2023-04-09] MEDS ORDERED: SODIUM CHLORIDE 0.9% 1,000 ML IV ONE (12:28)
[2023-04-09] MEDS ORDERED: SODIUM CHLORIDE 0.9% 500 ML IV ONE (12:28)
[2023-04-09 12:37] LABS: BUN Creatinine Ratio 23.7 (10-20); Bilirubin,Total 0.4 mg/dl (0.2-1.0); Blood Urea Nitrogen 22 mg/dl (6-23); Calcium 8.8 mg/dl (8.6-10.3); Creatinine Clr Calc Pharmacy 39.7 ml/min; Est GFR (African American) 66.8 ml/min; Est GFR (Non-African American) 57.6 ml/min; Glucose 268 mg/dl (70-99(Fasting))
[2023-04-09 12:38] LABS: Alanine Aminotransferase 34 U/L (7-52)
[2023-04-09 12:48] LABS: Anion Gap 12 (3-11); Bilirubin Direct 0.1 mg/dl (0-0.2); Carbon Dioxide 22 mmol/L (21-32); Chloride 98 mmol/L (98-107); Magnesium 1.3 mg/dl (1.7-2.4); Potassium 4.4 mmol/L (3.5-5.1); Sodium 132 mmol/L (136-145); Total Protein 6.9 gm/dl (6.0-8.3)
--- NOTE | 2023-04-09 13:07 | History & Physical Report ---
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 It is unclear the etiology of patient's fall today as she both complains of weakness but also cannot recall if she passed out. Work-up in the ED shows probable UTI based on UA and symptoms - urine culture is pending. Also noted to have borderline hypoxia with sats in the upper 80s at times on room air - improved on 2L O2 via nasal canula. Chest x-ray with possible RLL pneumonia though pt denies respiratory symptoms. - Admit to PCU - Continue antibiotic coverage for both UTI and presumed pulmonary infection - ceftriaxone 2 g IV daily and doxycycline 100 mg po BID - Continue oxygen titrated to maintain sats - Fall precautions, aspiration precautions - PT/OT evaluations - Insulin sliding scale while admitted - Magnesium being repleted in the ED - Labs in the AM - CBC, BMP, Mg - Albuterol nebs PRN SOB/wheezing - Cannot rule out syncopal event based on pt history - interrogate pacemaker while in the ED - NSS at 75 ml/hr for another 1 L (2) UTI (urinary tract infection): Plan: Antibiotics as above Await culture (3) Metabolic encephalopathy: (4) Hypomagnesemia: Plan: Initial Mg 1.3 - Mg Sulfate x 2 grams ordered in the ED. Recheck mag in AM (5) Diabetes mellitus type 2 in nonobese: Plan: Last A1c a month ago - pt follows with glycemic pharmacist. (6) Leukocytosis: (7) HTN (hypertension): (8) Hypoxia: (9) Hypothyroidism: (10) Malignant neoplasm of upper-outer quadrant of left breast in female, estrogen receptor positive: Plan Continue other home medications as appropriate. Pt seen and reviewed with collaborating physician, Dr. Armstrong. Plan of care discussed and as outlined above. 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 Of note, pt was admitted in August 2022 with TIA symptoms found secondary to hypoglycemia, medications were adjusted and she is no longer on a sulfonylurea. Per pt, she has been having issues with recurrent falls over the last several days. She lives alone but her son and daughter check on her frequently. This morning, she reports that she suddenly fell from a standing position and was unable to get up - she does not recall if she lost consciousness or if she had any preceding dizziness. Her son apparently found her on the floor, and she was more confused than usual. She has continued to be intermittently confused in the ED. Her outpatient records were reviewed including notes from her PCP, glycemic pharmacist, hem/onc, and EP cardio. She developed UTI symptoms in February - they called into PCP office, urine culture checked (results below), and she was treated with Cipro. In March, she noted ongoing issues with urinary urgency when she saw her PCP so another culture was checked (results below), and she was treated with cefdinir. Today, she again noted dysuria and urinary retention but denies hematuria or frequency. She has had chills and nausea but denies documented fever, vomiting, or diarrhea. Currently, she denies shortness of breath, cough, or chest pain although her imaging in the ED is concerning for pneumonia. Urine culture 03/15/23 - >100,000 colonies/ml Klebsiella aerogenes (resistant to cefoxitin, nitrofurantoin; intermediate to levofloxacin) - treated with cefdinir Urine culture 02/13/23 - 10,000 to 100,000 colonies/ml Klebsiella aerogenes and 10,000 to 100,000 colonies/ml Klebsiella pneumoniae (resistant to nitrofurantoin, cefoxitin) - treated with cipro Allergies Allergy/AdvReac Type Severity Reaction Status Date / Time erythromycin base Allergy Unknown gi upset Verified 04/09/23 12:09 Penicillins Allergy Unknown hives, rash Verified 04/09/23 12:09 Sulfa (Sulfonamide AdvReac upset Verified 04/09/23 12:09 Antibiotics) stomach Home Medications Medication Instructions Recorded Confirmed Type aspirin 81 mg chewable tablet 81 mg PO DAILY 12/30/18 04/09/23 History levothyroxine 50 mcg tablet 50 mcg PO DAILY 12/30/18 04/09/23 History losartan 100 mg tablet 100 mg PO DAILY 12/30/18 04/09/23 History pravastatin 40 mg tablet 40 mg PO DAILY 12/30/18 04/09/23 History amlodipine 2.5 mg tablet 2.5 mg PO DAILY 30 days #30 tabs 08/03/22 04/09/23 Rx dulaglutide 1.5 mg/0.5 mL 1.5 mg subcut WK 08/13/22 04/09/23 History subcutaneous pen injector (Trulicity) metoprolol succinate 50 mg 50 mg PO DAILY 08/13/22 04/09/23 History tablet,extended release 24 hr multivitamin 1 tab PO DAILY 10/05/22 04/09/23 History omeprazole 20 mg tablet,delayed 20 mg PO DAILY PRN Acid Reflux 10/05/22 04/09/23 History release metformin 500 mg tablet,extended 1,000 mg PO BID 10/23/22 04/09/23 History release 24 hr fluoride (sodium) 1.1 % dental 1 applic dental DAILY 11/06/22 04/09/23 History cream (SF 5000 Plus) cholecalciferol (vitamin D3) 125 125 mcg PO DAILY 03/06/23 04/09/23 History mcg (5,000 unit) capsule mirtazapine 15 mg tablet 15 mg PO HS 03/06/23 04/09/23 History repaglinide 0.5 mg tablet 0.5 mg PO DAILY 03/06/23 04/09/23 History tamoxifen 20 mg tablet 20 mg PO DAILY 03/06/23 04/09/23 History Past Med/Surg History Medical History Ductal carcinoma in situ (DCIS) of left breast CLL (chronic lymphocytic leukemia) Hypothyroidism Diabetes mellitus type 2 in nonobese AV heart block High cholesterol Neuropathy History of chicken pox Surgical History H/O right breast biopsy cyst; benign; 15 years ago S/P placement of cardiac pacemaker S/P lumpectomy, left breast S/P left mastectomy History of cryosurgery to cervix d/t cervical erosion S/P oophorectomy right S/P tonsillectomy S/P cholecystectomy S/P wisdom tooth extraction S/P tubal ligation Family History Grandmother (Paternal) Breast cancer Mother CHF (congestive heart failure) Father COPD (chronic obstructive pulmonary disease) Heart disease Emphysema lung Denies family history of Ovarian cancer Prostate cancer Colorectal cancer Social History Smoking Status: Never smoker Second Hand Exposure: Yes; Do You Dip or Chew Tobacco: No; Hx Alcohol Use: No Hx Substance Use: No Preferred Language: Irish Communication Ability: Effective Breakfast Host Required: No Beliefs That Will Affect Care: None Current Living Situation: Alone 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; 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 Feels Safe at Home: Yes Assistive Devices: Cane Review of Systems Review of Systems: All systems reviewed & are unremarkable except as noted in HPI & below Constitutional: + chills, + weakness and + anorexia; no fever Eyes: no diplopia Ear, Nose, Mouth, Throat: no nasal congestion and no sore throat Respiratory: no cough and no dyspnea Cardiovascular: no chest pain and no dyspnea on exertion Gastrointestinal: + nausea; no abdominal pain, no vomiting and no diarrhea/loose stools Genitourinary: + dysuria and + difficulty urinating Musculoskeletal: no joint pain Integumentary: no yellowing of the skin Neurologic: + confusion; no headache(s) Physical Exam Physical Exam: For details of the physical exam, please see physician's addendum. Results & Data Results & Data Vital Signs (Past 12 Hours) Vital Signs Temp Pulse Pulse Resp BP BP Pulse Ox 04/09/23 12:35 87 18 91 04/09/23 12:00 78 18 156/85 H 92 04/09/23 10:57 89 18 136/95 95 04/09/23 09:39 90 04/09/23 09:07 79 04/09/23 08:57 36.7 C 80 18 155/64 H 92 O2 Del Method O2 Flow Rate 04/09/23 12:35 Room Air 04/09/23 12:00 Room Air 04/09/23 10:57 Nasal Cannula 2 04/09/23 09:39 Room Air 04/09/23 09:07 04/09/23 08:57 Room Air Laboratory Results Laboratory Results - last 24 hr 04/09/23 04/09/23 04/09/23 09:10 10:06 10:11 WBC 16.11 H RBC 4.73 Hgb 14.1 Hct 40.8 MCV 86.3 MCH 29.8 MCHC 34.6 RDW Std Deviation 43.2 RDW Coeff of Karrie 13.6 Plt Count 188 MPV 11.8 Immature Gran % (Auto) 1.0 Neut % (Auto) 75.8 Lymph % (Auto) 16.9 [place] % (Auto) 6.1 Eos % (Auto) 0.0 Baso % (Auto) 0.2 Neut # (Auto) 12.21 H Lymph # (Auto) 2.73 [place] # (Auto) 0.98 H Eos # (Auto) 0.00 Baso # (Auto) 0.03 Immature Gran # (Auto) 0.16 Sodium 132 L Potassium 4.4 Chloride 98 Carbon Dioxide 22 Anion Gap 12 H BUN 22 Creatinine 0.93 Est Cr Clr Drug Dosing 39.7 Est GFR ( Amer) 66.8 Est GFR (Non-Af Amer) 57.6 BUN/Creatinine Ratio 23.7 H Glucose 268 H Lactate 2.2 H* Calcium 8.8 Magnesium 1.3 L Total Bilirubin 0.4 Direct Bilirubin 0.1 AST TNP ALT 34 Alkaline Phosphatase TNP Total Protein 6.9 Albumin 3.0 L Procalcitonin 0.55 H Urine Color Urine Appearance Urine pH Ur Specific [place] Urine Protein Urine Glucose (UA) Urine Ketones Urine Blood Urine Nitrite Urine Bilirubin Urine Urobilinogen Ur Leukocyte Esterase Urine WBC (Auto) Urine RBC (Auto) U Hyaline Cast (Auto) U Epithel Cells (Auto) Urine Bacteria (Auto) 04/09/23 04/09/23 10:45 12:06 WBC RBC Hgb Hct MCV MCH MCHC RDW Std Deviation RDW Coeff of Karrie Plt Count MPV Immature Gran % (Auto) Neut % (Auto) Lymph % (Auto) [place] % (Auto) Eos % (Auto) Baso % (Auto) Neut # (Auto) Lymph # (Auto) [place] # (Auto) Eos # (Auto) Baso # (Auto) Immature Gran # (Auto) Sodium Potassium Chloride Carbon Dioxide Anion Gap BUN Creatinine Est Cr Clr Drug Dosing Est GFR ( Amer) Est GFR (Non-Af Amer) BUN/Creatinine Ratio Glucose Lactate 2.9 H* Calcium Magnesium Total Bilirubin Direct Bilirubin AST ALT Alkaline Phosphatase Total Protein Albumin Procalcitonin Urine Color Yellow Urine Appearance Clear Urine pH 5.5 Ur Specific [place] 1.026 Urine Protein 2+ H Urine Glucose (UA) 3+ H Urine Ketones 2+ H Urine Blood 2+ H Urine Nitrite Positive A Urine Bilirubin Negative Urine Urobilinogen Negative Ur Leukocyte Esterase Trace H Urine WBC (Auto) >30 H Urine RBC (Auto) 0-4 U Hyaline Cast (Auto) 1-5 U Epithel Cells (Auto) 0-5 Urine Bacteria (Auto) 4+ H Diagnostic Findings Chest X-Ray 04/09/23 09:29 XR chest 1V portable HISTORY: Sepsis COMPARISON: Chest 08/13/2022. FINDINGS: No pneumothorax. No pleural effusions. The cardiac silhouette remains mildly enlarged. There is a left-sided dual-chamber pacemaker. The left lung is clear. There is a patchy right upper lobe airspace opacity which is new from the prior study. IMPRESSION: There is a new patchy right upper lobe airspace opacity. This likely represents a pneumonia. Recommend one month chest x-ray follow-up to ensure resolution. ACT 112: Negative or not required by law. Electronically signed by: Davy Arriaga M.D. 04/09/2023 9:[address] 04/09/23 09:29 CT SCAN OF THE BRAIN WITHOUT IV CONTRAST CLINICAL HISTORY: Fall. Head injury. COMPARISON STUDY: CT of the brain dated 08/14/2022. TECHNIQUE: Unenhanced axial CT scan of the brain is performed from the vertex to the skull base. A dose lowering technique was utilized adhering to the principles of ALARA. CT DOSE: 703.85 mGy.cm FINDINGS: Brain parenchyma: There is age-related involutional change noting moderate subcortical and periventricular microangiopathic disease. There is no hemorrhage, mass effect, or evidence of acute territorial ischemia by CT criteria. Bell-white matter differentiation is preserved. No extra-axial fluid collection is seen. Ventricles, sulci, cisterns: Prominent secondary to involutional change. Intracranial vasculature: There is atherosclerotic calcification of the cavernous carotid and vertebral arteries. Calvarium: The skeletal structures are osteopenic. No depressed calvarial fracture is seen. Sinuses and mastoids: The visualized paranasal sinuses are clear. The mastoid air cells are well pneumatized. Orbits: The bony orbits are grossly intact. There are bilateral ocular lens implants. IMPRESSION: There is no hemorrhage, mass effect, or evidence of acute territorial ischemia by CT criteria. ACT 112: Negative or not required by law. Electronically signed by: Gerhard Orta M.D. 04/09/2023 10:54 AM Shoulder X-Ray 04/09/23 09:30 XR shoulder RT min 2V routine CLINICAL HISTORY: Fall. Right shoulder pain. COMPARISON STUDY: Right shoulder 07/26/2016. FINDINGS: There is an old, healed right humeral neck fracture. No acute fracture or dislocation within the right shoulder. The right clavicle appears intact. Patchy right upper lobe airspace opacity again noted. Moderate degenerative changes within the right shoulder. Left-sided pacemaker. IMPRESSION: 1. Old, healed right humeral neck fracture again noted. 2. No acute fracture or dislocation within the right shoulder. 3. Patchy right upper lobe airspace opacities are better appreciated on the same day chest x-ray. ACT 112: Negative or not required by law. Electronically signed by: Davy Arriaga M.D. 04/09/2023 9:57 AM Medications Administered Doxycycline Hyclate 100 mg/ (Dextrose) 100 mls @ 50 mls/hr IV NOW STA Stop: 04/09/23 13:45 Last Admin: 04/09/23 12:29 Dose: 50 mls/hr Documented By: OL Discontinued Medications Sodium Chloride (Nss) 500 mls @ 999 mls/hr IV .Q31M MICHELA Stop: 04/09/23 10:00 Last Infusion: 04/09/23 11:17 Dose: Infused Documented By: Admin: 04/09/23 10:30 Dose: 999 mls/hr Documented By: OL Ceftriaxone Sodium (Rocephin) 2,000 mg in 50 mls @ 100 mls/hr IV NOW STA Stop: 04/09/23 11:57 Last Infusion: 04/09/23 12:33 Dose: Infused Documented By: Admin: 04/09/23 12:00 Dose: 100 mls/hr Documented By: OL Supervising Physician Co-Signing Physician Notes Patient is an 82-year-old female with history of breast cancer, complete heart block S/P pacemaker, CLL, diabetes mellitus and other medical problems presents with history of recurrent falls, ambulatory dysfunction. Patient sustained a fall this morning which she could not recollect the actual events. She was found on the floor and was more confused than her usual by her son. She admits to have some dysuria associated with nausea. Also reports right shoulder pain since the fall. She denies any loss of consciousness, syncope, chest pain, shortness of breath, cough, fever, chills. Please review HPI for complete details of presentation. Blood work suggestive leukocytosis 16.1, sodium 132, glucose 268, lactate 2.2, magnesium 1.3, albumin 3.0, procalcitonin 0.5. Urinalysis suggestive of possible UTI. CT head showed no acute intracranial abnormality. Chest x-ray showed new patchy right upper lobe opacity suggestive of possible pneumonia. Right shoulder showed old healed right humeral neck fracture but otherwise no acute fractures noted. Physical Exam: Vitals signs as noted above General Appearance:Frail, elderly, no apparent distress Head: normocephalic, Atraumatic Eyes: normal inspection, EOMI Neck: supple, Trachea midline Respiratory/Chest: Normal breath sounds, CTA, No accessory muscle use,+Pacer Cardiovascular: S1, S2, + murmur, +Tachycardia Abdomen/GI:Soft, Non tender, Bowel sounds present Extremities/Musculoskeletal:normal inspection, no edema Neurologic/Psych:AAOX2, grossly no focal neurological deficits Skin: normal color, warm Recurrent falls Ambulatory dysfunction Suspected syncope PT OT, fall precautions Imaging studies showed no acute fractures Acute metabolic encephalopathy UTI Possible pneumonia Suspected sepsis Blood, urine cultures pending Empirically started on Rocephin, doxycycline Lactic acidosis in setting of metformin, tamoxifen use, H/O breast cancer Cautious use of IV fluids Hyponatremia Hypomagnesemia Likely due to poor oral intake Gentle IV fluids Replace electrolytes as needed I personally reviewed the record. Patient is interviewed and examined at bedside. Patient's care is coordinated with Arlin Shi PA-C. Please refer to the documentation above for details of patient's presentation and for discussion of other issues. (2) UTI (urinary tract infection) Hematuria presence: without hematuria Urinary tract infection type: acute cystitis Qualified Code(s): N30.00 - Acute cystitis without hematuria (6) Leukocytosis Leukocytosis type: unspecified Qualified Code(s): D72.829 - Elevated white blood cell count, unspecified (7) HTN (hypertension) Hypertension type: primary hypertension Qualified Code(s): I10 - Essential (primary) hypertension (9) Hypothyroidism Hypothyroidism type: unspecified Qualified Code(s): E03.9 - Hypothyroidism, unspecified
[2023-04-09] MEDS: MAGNESIUM SULFATE / D5W 1 GM/100 ML BAG IV SCH ×2 (13:14→14:24)
[2023-04-09] MEDS ORDERED: SODIUM CHLORIDE 0.9% 1,000 ML IV SCH ×2 (13:30→16:00)
[2023-04-09] MEDS ORDERED: ACETAMINOPHEN 325 MG TAB PO PRN (15:29)
[2023-04-09] MEDS ORDERED: GLUCOSE 10 TAB/TUBE PO PRN (15:29)
[2023-04-09] MEDS ORDERED: GLUCAGON FOR INJ 1 MG VIAL SQ PRN (15:29)
[2023-04-09] MEDS ORDERED: CARBOHYDRATES FOR HYPOGLYCEMIA PO PRN (15:29)
[2023-04-09] MEDS ORDERED: ALBUTEROL 0.083% NEBU SOLN 3 ML VIAL NEB PRN (15:29)
[2023-04-09] MEDS ORDERED: GLUCOSE 40% GEL 15 GM TUBE PO PRN (15:29)
[2023-04-09] MEDS ORDERED: DEXTROSE 50% 50 ML SYRINGE IV PRN (15:29)
[2023-04-09] MEDS ORDERED: cefTRIAXone SODIUM 1,000 MG in DEXTROSE 5 % MINI-B 50 ML IV ONE (16:00)
[2023-04-09] MEDS: METOPROLOL SUCC 50MG EXT REL TAB PO SCH (18:30)
[2023-04-09] MEDS: INSULIN ASPART PER UNIT CHARGE SC SCH ×2 (18:47→22:48)
[2023-04-09] MEDS: DOXYCYCLINE HYCLATE 100 MG CAP PO SCH (22:41)
[2023-04-09] MEDS: MIRTAZAPINE TAB 15 MG TAB PO SCH (22:41)
[2023-04-09] MEDS: MAGNESIUM CHLORIDE W/CALCIUM 64MG DELAYED REL TAB PO SCH (22:41)
[2023-04-09] MEDS: LANTUS PER UNIT CHARGE SQ SCH (22:48)
[2023-04-09] MEDS ORDERED: cefTRIAXone SODIUM 2,000 MG in DEXTROSE 5 % MINI-B 50 ML IV SCH (23:00)
[2023-04-09] MEDS ORDERED: DOXYCYCLINE HYCLATE 100 MG in DEXTROSE 5% MINI-B 100 ML IV SCH (23:30)
[2023-04-10] MEDS: LEVOTHYROXINE SODIUM 50 MCG TABLET PO SCH (05:38)
[2023-04-10] MEDS: amLODIPine BESYLATE 5 MG TAB PO SCH (08:22)
[2023-04-10] MEDS: ASPIRIN 81 MG ECTAB PO SCH (08:23)
[2023-04-10] MEDS: PANTOprazole 40 MG TAB PO SCH (08:23)
[2023-04-10] MEDS: CHOLECALCIFEROL 5,000 UNITS 125 MCG TAB PO SCH (08:23)
[2023-04-10 08:24] LABS: Basophils # (auto) 0.03 K/uL (0.00-0.20); Basophils % (auto) 0.2 %; Hematocrit (blood only) 33.4 % (37.0-47.0); Hemoglobin 11.3 g/dl (12.0-16.0); Immature Granulocytes # (auto) 0.13 K/uL (0.01-0.20); Lymphocytes # (auto) 2.78 K/uL (1.20-3.40); Lymphocytes % (auto) 20.6 %; Mean Corpuscular Hemoglobin 29.4 pg (25.0-34.0); Mean Corpuscular Hgb Conc 33.8 g/dL (32.0-36.0); Mean Corpuscular Volume 86.8 fL (80.0-100.0); Mean Platelet Volume 11.2 fL (9.4-12.4); Monocytes # (auto) 0.76 K/uL (0.11-0.59); Monocytes % (auto) 5.6 %; Neutrophils # (auto) 9.81 K/uL (1.40-6.50); Neutrophils % (auto) 72.6 %; Platelet Count 209 K/uL (130-400); RDW Coefficient of Variation 13.8 % (11.5-14.5); RDW Standard Deviation 43.6 fL (36.4-46.3); Red Blood Count 3.85 M/uL (4.20-5.40); White Blood Count 13.51 K/ul (4.8-10.8)
[2023-04-10] MEDS: DOXYCYCLINE HYCLATE 100 MG CAP PO SCH ×2 (08:24→20:20)
[2023-04-10] MEDS: PRAVASTATIN SOD 40 MG TAB PO SCH (08:24)
[2023-04-10] MEDS: METOPROLOL SUCC 50MG EXT REL TAB PO SCH (08:25)
[2023-04-10] MEDS: MAGNESIUM CHLORIDE W/CALCIUM 64MG DELAYED REL TAB PO SCH ×2 (08:25→20:20)
[2023-04-10] MEDS: ENOXAPARIN INJ 40 MG/0.4 ML SYR SQ SCH (08:25)
[2023-04-10] MEDS: LOSARTAN POTASSIUM 50 MG TAB PO SCH (08:25)
[2023-04-10 08:51] LABS: BUN Creatinine Ratio 43.6 (10-20); Calcium 7.2 mg/dl (8.6-10.3); Est GFR (African American) 82.6 ml/min; Est GFR (Non-African American) 71.3 ml/min; Magnesium 1.6 mg/dl (1.7-2.4)
[2023-04-10] MEDS: LANTUS PER UNIT CHARGE SQ SCH ×2 (09:00→20:25)
[2023-04-10] MEDS: INSULIN ASPART PER UNIT CHARGE SC SCH ×4 (09:00→20:19)
[2023-04-10] MEDS: TAMOXIFEN CITRATE 10 MG TABLET PO SCH (09:01)
[2023-04-10] MEDS ORDERED: MAGNESIUM OXIDE 400 MG TAB PO SCH (10:00)
[2023-04-10] MEDS ORDERED: LANTUS PER UNIT CHARGE SQ ONE (11:30)
[2023-04-10] MEDS ORDERED: cefTRIAXone SODIUM 2,000 MG in DEXTROSE 5 % MINI-B 50 ML IV SCH (12:00)
--- NOTE | 2023-04-10 13:25 | Hospitalist Progress Note ---
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 Weakness Falls Complicated UTI Pneumonia Sepsis Pt presenting with frequent falls at home, son reportedly found her on the floor unable to get up On admission, WBC >16K, tachypneic with RR> 20, lactate elevated at 2.2 with repeat 2.9, procal elevated at 0.55 Chest XRAY suggestive of RUL pneumonia, CTA chest PE protocol pending, MRSA swab pending UA suggestive of infection, urine Cx currently growing gram neg rods Blood Cx x2 with NGTD, sputum Cx ordered Preciously on Rocephin and Doxycycline---> broadened to Cefepime and Flagyl for Pseudomonas and anaerobic coverage, along with doxycycline for atypicals Received IV fluid hydration, lactate currently normal at 1.9 Albuterol nebs PRN SOB/wheezing Continue oxygen titrated to maintain sats Fall precautions, aspiration precautions PT/OT Metabolic encephalopathy Reportedly with baseline confusion/dementia Possible worsening in setting of septic presentation noted above Continue to monitor Complete heart block s/p PPM placement 08/02/22 EKG with paced rhythm Trop ordered Cannot rule out syncopal event based on pt history - interrogated pacemaker while in the ED Echo 08/2022- EF 60-65%, aortic valve sclerosis Continue to monitor DMII Pt with elevated glucose levels AM [id number] ordered Significantly elevated levels in setting of sepsis Started on Lantus 12U BID with ISS Continue to monitor Continue other home medications as appropriate. Diet: DMII, HH Code Status: Full code DVT Prophylaxis: Lovenox Dispo: PT/OT ordered Admission and Anticipated Discharge Date Admission Date: April 09, 2023 Subjective pt seen in the AM. Was sitting on the side of the bed. States she just felt tired. Otherwise denied acute concerns. Review of Systems Review of Systems: All systems reviewed & are unremarkable except as noted in Subjective Physical Exam Physical Exam: General: Alert, oriented. No acute distress Skin: No noted rashes or bruises Psych: Appropriate mood and affect Neuro: Difficulty with movements HEENT: NC/AT Chest: Nontender to palpation. CV: RRR Resp: Breath sounds clear bilaterally, no increased effort of breathing. Abdomen: Soft, nontender, nondistended. Extremities: No edema in lower extremities bilaterally. Results & Data Results & Data Vital Signs (Past 12 Hours) Vital Signs Temp Pulse Resp BP Pulse Ox O2 Del Method O2 Flow Rate 04/10/23 12:35 36.8 C 77 17 115/59 L 93 Room Air 04/10/23 09:41 Nasal Cannula 2 04/10/23 07:24 37.1 C 73 17 111/66 92 Nasal Cannula 2 04/10/23 03:40 36.9 C 77 18 138/76 94 Nasal Cannula 2 (2) UTI (urinary tract infection) Hematuria presence: without hematuria Urinary tract infection type: acute cystitis Qualified Code(s): N30.00 - Acute cystitis without hematuria (6) Leukocytosis Leukocytosis type: unspecified Qualified Code(s): D72.829 - Elevated white blood cell count, unspecified (7) HTN (hypertension) Hypertension type: primary hypertension Qualified Code(s): I10 - Essential ( primary) hypertension (9) Hypothyroidism Hypothyroidism type: unspecified Qualified Code(s): E03.9 - Hypothyroidism, unspecified
--- NOTE | 2023-04-10 13:49 | Electrocardiogram Report ---
Test Reason : Blood Pressure : / mmHG Vent. Rate : 071 BPM Atrial Rate : 071 BPM P-R Int : 122 ms QRS Dur : 108 ms QT Int : 408 ms P-R-T Axes : 034 -44 017 degrees QTc Int : 443 ms Atrial-sensed ventricular-paced rhythm with frequent AV dual-paced complexes in a pattern of bigeminy Abnormal ECG When compared with ECG of 13-AUG-2022 09:52, Premature atrial complexes are no longer Present Vent. rate has increased BY 7 BPM Confirmed by Elijah Grissom ([id number]) on 04/10/2023 1:49:14 PM Referred By: REFERRED SELF Confirmed By:Elijah Grissom
[2023-04-10] MEDS: CEFEPIME 2,000 MG in SYRINGE 0 ML IV SCH (18:10)
[2023-04-10] MEDS: metroNIDAZOLE 500 MG/100 ML BAG IV SCH (18:10)
[2023-04-10] MEDS: MIRTAZAPINE TAB 15 MG TAB PO SCH (20:20)
[2023-04-10] MEDS ORDERED: OPTIRAY 320 125ml IV ONE (20:58)
--- NOTE | 2023-04-10 21:25 | CT Scan Report ---
Exam(s): CTA CHEST IV Amt: 117ml EXAM: CT Angiography Chest With Intravenous Contrast CLINICAL HISTORY: Reason for exam: PE. TECHNIQUE: Axial computed tomographic angiography images of the chest with intravenous contrast. Automated exposure control was utilized for the study. A dose lowering technique was utilized adhering to the principles of ALARA. MIP reconstructed images were created and reviewed. COMPARISON: No relevant prior studies available. FINDINGS: Pulmonary arteries: Unremarkable. No pulmonary embolism. Aorta: Atherosclerotic changes of the aorta. No thoracic aortic aneurysm. Lungs: Airspace consolidation in the RIGHT upper lobe, consistent with lobar pneumonia. Mild airspace consolidation also present in the lateral aspect of the lingula. Small RIGHT pleural effusion. Heart: Cardiomegaly. No significant pericardial effusion. No evidence of RV dysfunction. Bones/joints: Degenerative changes of the spine. Old fracture of the RIGHT humeral head. No dislocation. Soft tissues: Unremarkable. Lymph nodes: Unremarkable. No enlarged lymph nodes. Liver: Hepatic status. Gallbladder and bile ducts: Cholecystectomy. Tubes, lines and devices: Pacemaker leads. IMPRESSION: Airspace consolidation in the RIGHT upper lobe, consistent with lobar pneumonia. Mild airspace consolidation also present in the lateral aspect of the lingula. Small RIGHT pleural effusion. Electronically signed by: Quan Mariano MD 04/10/23 21:24 PM
[2023-04-11] MEDS: CEFEPIME 2,000 MG in SYRINGE 0 ML IV SCH ×3 (02:07→20:13)
[2023-04-11] MEDS: metroNIDAZOLE 500 MG/100 ML BAG IV SCH ×3 (02:07→17:37)
[2023-04-11] MEDS: LEVOTHYROXINE SODIUM 50 MCG TABLET PO SCH (05:43)
[2023-04-11 06:28] LABS: Basophils # (auto) 0.03 K/uL (0.00-0.20); Basophils % (auto) 0.3 %; Eosinophils # (auto) 0.01 K/uL (0.00-0.50); Eosinophils % (auto) 0.1 %; Hematocrit (blood only) 33.2 % (37.0-47.0); Hemoglobin 11.3 g/dl (12.0-16.0); Immature Granulocytes # (auto) 0.11 K/uL (0.01-0.20); Immature Granulocytes % (auto) 1.2 %; Lymphocytes % (auto) 20.1 %; Mean Corpuscular Volume 85.3 fL (80.0-100.0); Mean Platelet Volume 10.7 fL (9.4-12.4); Monocytes # (auto) 0.79 K/uL (0.11-0.59); Monocytes % (auto) 8.8 %; Neutrophils # (auto) 6.21 K/uL (1.40-6.50); Neutrophils % (auto) 69.5 %; Platelet Count 208 K/uL (130-400); RDW Coefficient of Variation 13.9 % (11.5-14.5); RDW Standard Deviation 43.3 fL (36.4-46.3); Red Blood Count 3.89 M/uL (4.20-5.40); White Blood Count 8.95 K/ul (4.8-10.8)
[2023-04-11 06:56] LABS: Albumin Globulin Ratio 0.9 (0.9-2); Albumin Level 2.5 gm/dl (3.4-5.0); Bilirubin,Total 0.2 mg/dl (0.2-1.0); Calcium 7.5 mg/dl (8.6-10.3); Creatinine Clr Calc Pharmacy 41.1 ml/min; Est GFR (African American) 70.4 ml/min; Est GFR (Non-African American) 60.8 ml/min; Globulin 2.9 gm/dl (2.5-4.0); Magnesium 1.8 mg/dl (1.7-2.4); Phosphorus 1.4 mg/dl (2.5-4.9); Total Protein 5.4 gm/dl (6.0-8.3)
[2023-04-11] MEDS ORDERED: PHARMACY GLYCEMIC MGMT CONSULT PRN (07:23)
[2023-04-11] MEDS ORDERED: SODIUM PHOSPHATE 3 MMOL/1 ML INFUSION IV ONE (07:24)
[2023-04-11] MEDS: MAGNESIUM CHLORIDE W/CALCIUM 64MG DELAYED REL TAB PO SCH ×2 (07:25→20:13)
[2023-04-11] MEDS: PRAVASTATIN SOD 40 MG TAB PO SCH (07:26)
[2023-04-11] MEDS: PANTOprazole 40 MG TAB PO SCH (07:26)
[2023-04-11] MEDS: ENOXAPARIN INJ 40 MG/0.4 ML SYR SQ SCH (07:26)
[2023-04-11] MEDS: ASPIRIN 81 MG ECTAB PO SCH (07:26)
[2023-04-11] MEDS: DOXYCYCLINE HYCLATE 100 MG CAP PO SCH ×2 (07:26→20:13)
[2023-04-11] MEDS: CHOLECALCIFEROL 5,000 UNITS 125 MCG TAB PO SCH (07:26)
[2023-04-11] MEDS ORDERED: SODIUM PHOSPHATE 21 MMOL in SODIUM CHLORIDE 0.9% 500 ML IV ONE (07:30)
[2023-04-11 08:19] LABS: Estimated Average Glucose 197 mg/dl; Hemoglobin A1C 8.5 % (4.5-5.6)
[2023-04-11] MEDS: INSULIN ASPART PER UNIT CHARGE SC SCH ×4 (08:33→20:19)
[2023-04-11] MEDS: LANTUS PER UNIT CHARGE SQ SCH ×2 (08:33→20:20)
[2023-04-11] MEDS: TAMOXIFEN CITRATE 10 MG TABLET PO SCH (08:34)
[2023-04-11] MEDS: LOSARTAN POTASSIUM 50 MG TAB PO SCH (08:58)
[2023-04-11] MEDS: amLODIPine BESYLATE 5 MG TAB PO SCH (08:58)
[2023-04-11] MEDS: METOPROLOL SUCC 50MG EXT REL TAB PO SCH (08:58)
--- NOTE | 2023-04-11 10:11 | Pharmacy Report ---
Pharmacy Glycemic Short Note 2 - Date of Service April 11, 2023 - Glycemic Short BSG Results (Last 24 hours): 04/10/23 04/10/23 04/10/23 12:08 12:09 17:06 Glucose POC Glucose 411 H* 402 H* 298 H 04/10/23 04/11/23 04/11/23 20:15 06:00 08:02 Glucose 150 H POC Glucose 312 H* 162 H OUTPATIENT ANTIDIABETIC REGIMEN: * metformin 1gm PO BID * repaglinide 0.5mg PO daily * dulaglutide 1.5mg SQ weekly HbA1C: 8.5% ASSESSMENT: * Pt is an 82 year old female with a history of DM2 admitted with weakness and recurrent falls. Pharmacy consulted to assist with inpatient glycemic management. * BSGs above goal yesterday- [phone]/dL. Received 24 units of basal and 26 units of bolus insulin yesterday (pharmacy consulted today). * Receiving antibiotics, tolerating diet- other stressors stable. * Fasting BSG 312 -->162mg/dL this AM. Will continue Lantus 12 units BID for now. Novolog carb ratio added this AM, ~ moderate stress scale ACHS. PLAN FOR INPATIENT GLYCEMIC CONTROL: * Hold outpatient oral diabetes medications * Basal insulin * Lantus 12 units SQ BID * Bolus insulin * NovoLog per scale ACHS or Q6hrs while NPO * Goal Range: Low 110 mg/dL - High 140 mg/dL * Correction Factor: 30 mg/dL/unit * Nutritional / Prandial insulin per carb ratio of 1 unit per 12 grams CHO consumed
--- NOTE | 2023-04-11 15:23 | Electrocardiogram Report ---
Test Reason : Blood Pressure : / mmHG Vent. Rate : 068 BPM Atrial Rate : 068 BPM P-R Int : 132 ms QRS Dur : 116 ms QT Int : 454 ms P-R-T Axes : 047 143 024 degrees QTc Int : 482 ms Atrial-sensed ventricular-paced rhythm with occasional AV dual-paced complexes Abnormal ECG When compared with ECG of 09-APR-2023 08:55, Vent. rate has decreased BY 3 BPM Confirmed by Elijah Grissom ([id number]) on 04/11/2023 3:23:01 PM Referred By: REFERRED SELF Confirmed By:Elijah Grissom
--- NOTE | 2023-04-11 16:04 | Hospitalist Progress Note ---
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 Pneumonia Sepsis Acute metabolic encephalopathy Hypoxia due to above --CTA: Airspace consolidation in the RIGHT upper lobe, consistent with lobar pneumonia. Mild airspace consolidation also present in the lateral aspect of the lingula. Small RIGHT pleural effusion. --Blood cultures negative to date Received gentle IV fluids Lactic acidosis in setting of metformin, tamoxifen use, H/O breast cancer Continue cefepime, Flagyl, Doxy for now Transition to p.o. antibiotics as able Nebs as needed Wean off of supplemental oxygen as able May need rehab placement UTI Urine culture growing E. coli On cefepime as above Hyponatremia Hypomagnesemia Hypophosphatemia Likely due to poor oral intake Replace electrolytes as needed Monitor Recurrent falls Ambulatory dysfunction Suspected syncope PT OT, fall precautions Imaging studies showed no acute fractures May need rehab placement Metabolic encephalopathy Reportedly with baseline confusion/dementia --CT Head:There is no hemorrhage, mass effect, or evidence of acute territorial ischemia by CT criteria. Possible worsening in setting of septic presentation noted above Continue to monitor Complete heart block s/p PPM placement 08/02/22 EKG with paced rhythm Cannot rule out syncopal event based on pt history Interrogated pacemaker while in the ED Echo 08/2022- EF 60-65%, aortic valve sclerosis Continue to monitor DM II HbA1c 8.5 Continue insulin Monitor Bgs Other chronic conditions: Hypertension Hyperlipidemia Hypothyroidism Continue home medications as appropriate DVT Px Lovenox SQ CODE STATUS Full code Admission and Anticipated Discharge Date Admission Date: April 09, 2023 Subjective Patient is seen and examined at bedside More alert, awake and oriented today States feeling tired and weak Also reports minimal cough Updated patient's son over the phone Offers no other complaints Denies any chest pain, dyspnea, dizziness, nausea, vomiting, abdominal pain Review of Systems Review of Systems: All systems reviewed & are unremarkable except as noted in Subjective Physical Exam Physical Exam: Physical Exam: Vitals signs as noted above General Appearance:Frail, elderly, no apparent distress Head: normocephalic, Atraumatic Eyes: normal inspection, EOMI Neck: supple, Trachea midline Respiratory/Chest: Normal breath sounds, mild basal crackles, No accessory muscle use,+Pacer Cardiovascular: S1, S2, + murmur Abdomen/GI:Soft, Non tender, Bowel sounds present Extremities/Musculoskeletal:normal inspection, no edema Neurologic/Psych:AAOX2, grossly no focal neurological deficits Skin: normal color, warm Results & Data Results & Data Vital Signs (Past 12 Hours) Vital Signs Temp Pulse Resp BP Pulse Ox O2 Del Method O2 Flow Rate 04/11/23 11:19 36.8 C 62 17 104/64 94 Nasal Cannula 2.0 04/11/23 07:45 36.8 C 70 17 131/54 L 94 Nasal Cannula 2.0 04/11/23 07:32 Nasal Cannula 2 Laboratory Results Short CBC 04/11/23 Range/Units 06:00 WBC 8.95 (4.8-10.8) K/ul Hgb 11.3 L (12.0-16.0) g/dl Hct 33.2 L (37.0-47.0) % Plt Count 208 (130-400) K/uL BMP 04/11/23 06:00 Sodium 133 L Potassium 4.0 Chloride 105 Carbon Dioxide 23 BUN 32 H Creatinine 0.89 Glucose 150 H Calcium 7.5 L Liver Function 04/11/23 Range/Units 06:00 Total Bilirubin 0.2 (0.2-1.0) mg/dl AST 28 (13-39) U/L ALT 22 (7-52) U/L Alkaline Phosphatase 43 (34-104) U/L Albumin 2.5 L (3.4-5.0) gm/dl (2) UTI (urinary tract infection) Urinary tract infection type: acute cystitis Hematuria presence: without hematuria Qualified Code(s): N30.00 - Acute cystitis without hematuria (6) Leukocytosis Leukocytosis type: unspecified Qualified Code(s): D72.829 - Elevated white blood cell count, unspecified (7) HTN (hypertension) Hypertension type: primary hypertension Qualified Code(s): I10 - Essential (primary) hypertension (9) Hypothyroidism Hypothyroidism type: unspecified Qualified Code(s): E03.9 - Hypothyroidism, unspecified
[2023-04-11] MEDS: MIRTAZAPINE TAB 15 MG TAB PO SCH (20:13)
[2023-04-12] MEDS: metroNIDAZOLE 500 MG/100 ML BAG IV SCH ×3 (02:09→17:20)
[2023-04-12] MEDS: LEVOTHYROXINE SODIUM 50 MCG TABLET PO SCH ×3 (05:33→06:39)
[2023-04-12 06:36] LABS: Basophils # (auto) 0.02 K/uL (0.00-0.20); Basophils % (auto) 0.4 %; Eosinophils # (auto) 0.05 K/uL (0.00-0.50); Hematocrit (blood only) 28.9 % (37.0-47.0); Hemoglobin 9.7 g/dl (12.0-16.0); Immature Granulocytes # (auto) 0.07 K/uL (0.01-0.20); Immature Granulocytes % (auto) 1.4 %; Lymphocytes # (auto) 1.41 K/uL (1.20-3.40); Lymphocytes % (auto) 27.5 %; Mean Corpuscular Hgb Conc 33.6 g/dL (32.0-36.0); Mean Corpuscular Volume 86.3 fL (80.0-100.0); Mean Platelet Volume 10.8 fL (9.4-12.4); Monocytes # (auto) 0.72 K/uL (0.11-0.59); Neutrophils # (auto) 2.86 K/uL (1.40-6.50); Neutrophils % (auto) 55.7 %; Platelet Count 163 K/uL (130-400); RDW Coefficient of Variation 13.8 % (11.5-14.5); RDW Standard Deviation 43.7 fL (36.4-46.3); Red Blood Count 3.35 M/uL (4.20-5.40); White Blood Count 5.13 K/ul (4.8-10.8)
[2023-04-12 06:42] LABS: BUN Creatinine Ratio 27.4 (10-20); Creatinine Clr Calc Pharmacy 50.4 ml/min; Est GFR (African American) 89.5 ml/min; Est GFR (Non-African American) 77.2 ml/min; Potassium 3.9 mmol/L (3.5-5.1)
[2023-04-12 06:47] LABS: Albumin Globulin Ratio 0.9 (0.9-2); Albumin Level 2.3 gm/dl (3.4-5.0); Bilirubin,Total 0.2 mg/dl (0.2-1.0); Globulin 2.5 gm/dl (2.5-4.0); Magnesium 1.8 mg/dl (1.7-2.4); Phosphorus 1.3 mg/dl (2.5-4.9); Total Protein 4.8 gm/dl (6.0-8.3)
[2023-04-12] MEDS ORDERED: SODIUM PHOSPHATE 3 MMOL/1 ML INFUSION IV STA (06:51)
[2023-04-12] MEDS ORDERED: SODIUM PHOSPHATE 24 MMOL in SODIUM CHLORIDE 0.9% 500 ML IV ONE (07:30)
[2023-04-12] MEDS: LANTUS PER UNIT CHARGE SQ SCH ×2 (08:49→21:32)
[2023-04-12] MEDS: CEFEPIME 2,000 MG in SYRINGE 0 ML IV SCH ×2 (08:50→21:33)
[2023-04-12] MEDS: ASPIRIN 81 MG ECTAB PO SCH (08:51)
[2023-04-12] MEDS: ENOXAPARIN INJ 40 MG/0.4 ML SYR SQ SCH (08:51)
[2023-04-12] MEDS: DOXYCYCLINE HYCLATE 100 MG CAP PO SCH ×2 (08:51→21:29)
[2023-04-12] MEDS: TAMOXIFEN CITRATE 10 MG TABLET PO SCH (08:51)
[2023-04-12] MEDS: PRAVASTATIN SOD 40 MG TAB PO SCH (08:51)
[2023-04-12] MEDS: PANTOprazole 40 MG TAB PO SCH (08:51)
[2023-04-12] MEDS: amLODIPine BESYLATE 5 MG TAB PO SCH (08:51)
[2023-04-12] MEDS: LOSARTAN POTASSIUM 50 MG TAB PO SCH (08:51)
[2023-04-12] MEDS: MAGNESIUM CHLORIDE W/CALCIUM 64MG DELAYED REL TAB PO SCH ×2 (08:51→21:29)
[2023-04-12] MEDS: METOPROLOL SUCC 50MG EXT REL TAB PO SCH (08:51)
[2023-04-12] MEDS: CHOLECALCIFEROL 5,000 UNITS 125 MCG TAB PO SCH (08:51)
[2023-04-12] MEDS: INSULIN ASPART PER UNIT CHARGE SC SCH ×4 (08:56→21:27)
[2023-04-12] MEDS ORDERED: SODIUM PHOSPHATE 3 MMOL/1 ML INFUSION IV ONE (09:28)
[2023-04-12] MEDS: POT PHOSPHATE MONOBASIC W/ SOD TAB PO SCH ×3 (13:13→21:29)
--- NOTE | 2023-04-12 15:35 | Hospitalist Progress Note ---
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 Pneumonia Sepsis Acute metabolic encephalopathy Hypoxia due to above --CTA: Airspace consolidation in the RIGHT upper lobe, consistent with lobar pneumonia. Mild airspace consolidation also present in the lateral aspect of the lingula. Small RIGHT pleural effusion. --Blood cultures negative to date Received gentle IV fluids Lactic acidosis in setting of metformin, tamoxifen use, H/O breast cancer Continue cefepime, Flagyl, Doxy for now Nebs as needed Weaned off of supplemental oxygen as able Will consider to transition to p.o. antibiotics tomorrow Rehab as able UTI Urine culture growing E. coli On cefepime as above Hyponatremia Hypomagnesemia Hypophosphatemia Likely due to poor oral intake Replace electrolytes as needed Monitor Recurrent falls Ambulatory dysfunction Suspected syncope PT OT, fall precautions Imaging studies showed no acute fractures May need rehab placement Metabolic encephalopathy Reportedly with baseline confusion/dementia --CT Head:There is no hemorrhage, mass effect, or evidence of acute territorial ischemia by CT criteria. Possible worsening in setting of septic presentation noted above Continue to monitor Complete heart block s/p PPM placement 08/02/22 EKG with paced rhythm Cannot rule out syncopal event based on pt history Interrogated pacemaker while in the ED Echo 08/2022- EF 60-65%, aortic valve sclerosis Continue to monitor DM II HbA1c 8.5 Continue insulin Monitor Bgs Other chronic conditions: Hypertension Hyperlipidemia Hypothyroidism Continue home medications as appropriate DVT Px Lovenox SQ CODE STATUS Full code Admission and Anticipated Discharge Date Admission Date: April 09, 2023 Subjective Patient is seen and examined at bedside Mental status back to baseline States having generalized weakness Cough continues to improve No new complaints Denies any chest pain, dyspnea, dizziness, nausea, vomiting, abdominal pain Weaned off of supplemental oxygen Review of Systems Review of Systems: All systems reviewed & are unremarkable except as noted in Subjective Physical Exam Physical Exam: Physical Exam: Vitals signs as noted above General Appearance:Frail, elderly, no apparent distress Head: normocephalic, Atraumatic Eyes: normal inspection, EOMI Neck: supple, Trachea midline Respiratory/Chest: Normal breath sounds, CTA, No accessory muscle use,+Pacer Cardiovascular: S1, S2, + murmur Abdomen/GI:Soft, Non tender, Bowel sounds present Extremities/Musculoskeletal:normal inspection, no edema Neurologic/Psych:AAOX2, grossly no focal neurological deficits Skin: normal color, warm Results & Data Results & Data Vital Signs (Past 12 Hours) Vital Signs Temp Pulse Pulse Resp BP Pulse Ox Pulse Ox 04/12/23 13:26 95 04/12/23 12:54 04/12/23 11:16 36.6 C 64 16 104/65 94 04/12/23 08:08 04/12/23 08:08 67 04/12/23 07:38 36.3 C L 69 17 123/72 96 04/12/23 03:53 36.3 C L 65 18 109/70 94 O2 Del Method O2 Del Method O2 Flow Rate 04/12/23 13:26 Room Air 04/12/23 12:54 2 04/12/23 11:16 Nasal Cannula 2.0 04/12/23 08:08 Nasal Cannula 2 04/12/23 08:08 04/12/23 07:38 Nasal Cannula 2.0 04/12/23 03:53 Nasal Cannula 2 Laboratory Results Short CBC 04/12/23 Range/Units 06:07 WBC 5.13 (4.8-10.8) K/ul Hgb 9.7 L (12.0-16.0) g/dl Hct 28.9 L (37.0-47.0) % Plt Count 163 (130-400) K/uL BMP 04/12/23 06:07 Sodium 134 L Potassium 3.9 Chloride 107 Carbon Dioxide 22 BUN 20 Creatinine 0.73 Glucose 133 H Calcium 7.0 L Liver Function 04/12/23 Range/Units 06:07 Total Bilirubin 0.2 (0.2-1.0) mg/dl AST 31 (13-39) U/L ALT 23 (7-52) U/L Alkaline Phosphatase 41 (34-104) U/L Albumin 2.3 L (3.4-5.0) gm/dl (2) UTI (urinary tract infection) Urinary tract infection type: acute cystitis Hematuria presence: without hematuria Qualified Code(s): N30.00 - Acute cystitis without hematuria (6) Leukocytosis Leukocytosis type: unspecified Qualified Code(s): D72.829 - Elevated white blood cell count, unspecified (7) HTN (hypertension) Hypertension type: primary hypertension Qualified Code(s): I10 - Essential (primary) hypertension (9) Hypothyroidism Hypothyroidism type: unspecified Qualified Code(s): E03.9 - Hypothyroidism, unspecified
[2023-04-12] MEDS: MIRTAZAPINE TAB 15 MG TAB PO SCH (21:28)
[2023-04-13] MEDS: metroNIDAZOLE 500 MG/100 ML BAG IV SCH ×2 (01:04→09:14)
[2023-04-13 06:08] LABS: Basophils # (auto) 0.04 K/uL (0.00-0.20); Basophils % (auto) 0.4 %; Eosinophils # (auto) 0.14 K/uL (0.00-0.50); Eosinophils % (auto) 1.4 %; Hematocrit (blood only) 34.7 % (37.0-47.0); Hemoglobin 11.6 g/dl (12.0-16.0); Immature Granulocytes # (auto) 0.19 K/uL (0.01-0.20); Lymphocytes # (auto) 3.58 K/uL (1.20-3.40); Lymphocytes % (auto) 36.9 %; Mean Corpuscular Hemoglobin 28.8 pg (25.0-34.0); Mean Corpuscular Hgb Conc 33.4 g/dL (32.0-36.0); Mean Corpuscular Volume 86.1 fL (80.0-100.0); Mean Platelet Volume 10.9 fL (9.4-12.4); Monocytes # (auto) 0.83 K/uL (0.11-0.59); Monocytes % (auto) 8.6 %; Neutrophils # (auto) 4.91 K/uL (1.40-6.50); Neutrophils % (auto) 50.7 %; Platelet Count 308 K/uL (130-400); RDW Coefficient of Variation 13.9 % (11.5-14.5); RDW Standard Deviation 43.6 fL (36.4-46.3); Red Blood Count 4.03 M/uL (4.20-5.40); White Blood Count 9.69 K/ul (4.8-10.8)
[2023-04-13 06:29] LABS: Albumin Globulin Ratio 0.9 (0.9-2); Albumin Level 2.7 gm/dl (3.4-5.0); BUN Creatinine Ratio 20.5 (10-20); Bilirubin,Total 0.2 mg/dl (0.2-1.0); Calcium 7.3 mg/dl (8.6-10.3); Creatinine Clr Calc Pharmacy 47.4 ml/min; Est GFR (African American) 82.6 ml/min; Est GFR (Non-African American) 71.3 ml/min; Magnesium 1.8 mg/dl (1.7-2.4); Potassium 3.7 mmol/L (3.5-5.1); Total Protein 5.7 gm/dl (6.0-8.3)
[2023-04-13] MEDS ORDERED: guaiFENesin 600 MG TABCR PO SCH (09:00)
[2023-04-13] MEDS: INSULIN ASPART PER UNIT CHARGE SC SCH ×2 (09:14→12:49)
[2023-04-13] MEDS: CEFEPIME 2,000 MG in SYRINGE 0 ML IV SCH (09:14)
[2023-04-13] MEDS: amLODIPine BESYLATE 5 MG TAB PO SCH (09:15)
[2023-04-13] MEDS: CHOLECALCIFEROL 5,000 UNITS 125 MCG TAB PO SCH (09:15)
[2023-04-13] MEDS: POT PHOSPHATE MONOBASIC W/ SOD TAB PO SCH ×2 (09:15→12:20)
[2023-04-13] MEDS: DOXYCYCLINE HYCLATE 100 MG CAP PO SCH (09:15)
[2023-04-13] MEDS: TAMOXIFEN CITRATE 10 MG TABLET PO SCH (09:15)
[2023-04-13] MEDS: LOSARTAN POTASSIUM 50 MG TAB PO SCH (09:15)
[2023-04-13] MEDS: ASPIRIN 81 MG ECTAB PO SCH (09:15)
[2023-04-13] MEDS: PRAVASTATIN SOD 40 MG TAB PO SCH (09:15)
[2023-04-13] MEDS: PANTOprazole 40 MG TAB PO SCH (09:15)
[2023-04-13] MEDS: MAGNESIUM CHLORIDE W/CALCIUM 64MG DELAYED REL TAB PO SCH (09:15)
[2023-04-13] MEDS: METOPROLOL SUCC 50MG EXT REL TAB PO SCH (09:16)
[2023-04-13] MEDS: ENOXAPARIN INJ 40 MG/0.4 ML SYR SQ SCH (09:16)
--- NOTE | 2023-04-13 09:16 | Pharmacy Report ---
Pharmacy Glycemic Short Note 2 - Date of Service April 13, 2023 - Glycemic Short BSG Results (Last 24 hours): 04/12/23 04/12/23 04/12/23 12:04 17:02 20:04 Glucose POC Glucose 270 H 177 H 201 H 04/13/23 04/13/23 05:35 07:45 Glucose 128 H POC Glucose 120 H OUTPATIENT ANTIDIABETIC REGIMEN: * metformin 1gm PO BID * repaglinide 0.5mg PO daily * dulaglutide 1.5mg SQ weekly HbA1C: 8.5% (04/11/23) ASSESSMENT: 04/13/23: * BSGs elevated yesterday, ranging 128-270 mg/dL * Received 44 units of insulin (24 units of basal and 20 units of prandial/correctional bolus) * Fasting BSGs well-controlled, 120 mL - will continue current basal * Will tighten Novolog carb coverage today * Discharge anticipated for today 04/11/23: * Pt is an 82 year old female with a history of DM2 admitted with weakness and recurrent falls. Pharmacy consulted to assist with inpatient glycemic management. * BSGs above goal yesterday- [phone]/dL. Received 24 units of basal and 26 units of bolus insulin yesterday (pharmacy consulted today). * Receiving antibiotics, tolerating diet- other stressors stable. * Fasting BSG 312 -->162mg/dL this AM. Will continue Lantus 12 units BID for now. Novolog carb ratio added this AM, ~ moderate stress scale ACHS. PLAN FOR INPATIENT GLYCEMIC CONTROL: * Hold outpatient oral diabetes medications * Basal insulin * Lantus 12 units SQ BID * Bolus insulin - tighten carb coverage * NovoLog per scale ACHS or Q6hrs while NPO * Goal Range: Low 110 mg/dL - High 140 mg/dL * Correction Factor: 30 mg/dL/unit * Nutritional / Prandial insulin per carb ratio of 1 unit per 10 grams CHO consumed
[2023-04-13] MEDS: LANTUS PER UNIT CHARGE SQ SCH (09:21)
[2023-04-13] MEDS ORDERED: ADVANCED PROBIOTIC 1250 MG CAPSULE PO SCH (11:00)
--- NOTE | 2023-04-13 11:16 | Discharge Summary ---
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 Of note, pt was admitted in August 2022 with TIA symptoms found secondary to hypoglycemia, medications were adjusted and she is no longer on a sulfonylurea. Per pt, she has been having issues with recurrent falls over the last several days. She lives alone but her son and daughter check on her frequently. This morning, she reports that she suddenly fell from a standing position and was unable to get up - she does not recall if she lost consciousness or if she had any preceding dizziness. Her son apparently found her on the floor, and she was more confused than usual. She has continued to be intermittently confused in the ED. Her outpatient records were reviewed including notes from her PCP, glycemic pharmacist, hem/onc, and EP cardio. She developed UTI symptoms in February - they called into PCP office, urine culture checked (results below), and she was treated with Cipro. In March, she noted ongoing issues with urinary urgency when she saw her PCP so another culture was checked (results below), and she was treated with cefdinir. Today, she again noted dysuria and urinary retention but denies hematuria or frequency. She has had chills and nausea but denies documented fever, vomiting, or diarrhea. Currently, she denies shortness of breath, cough, or chest pain although her imaging in the ED is concerning for pneumonia. Urine culture 03/15/23 - >100,000 colonies/ml Klebsiella aerogenes (resistant to cefoxitin, nitrofurantoin; intermediate to levofloxacin) - treated with cefdinir Urine culture 02/13/23 - 10,000 to 100,000 colonies/ml Klebsiella aerogenes and 10,000 to 100,000 colonies/ml Klebsiella pneumoniae (resistant to nitrofurantoin, cefoxitin) - treated with cipro Admission Exam Per Admitting Provider General Appearance:Frail, elderly, no apparent distress Head: normocephalic, Atraumatic Eyes: normal inspection, EOMI Neck: supple, Trachea midline Respiratory/Chest: Normal breath sounds, CTA, No accessory muscle use,+Pacer Cardiovascular: S1, S2, + murmur, +Tachycardia Abdomen/GI:Soft, Non tender, Bowel sounds present Extremities/Musculoskeletal:normal inspection, no edema Neurologic/Psych:AAOX2, grossly no focal neurological deficits Skin: normal color, warm Principal Diagnosis Falls, UTI, Pneumonia Discharge Exam General Appearance:Frail, elderly F in no apparent distress Head: normocephalic, Atraumatic Eyes: normal inspection, EOMI Neck: supple Respiratory/Chest: Normal breath sounds, CTA, No accessory muscle use,+Pacer Cardiovascular: S1, S2, + murmur Abdomen/GI: Soft, Non tender, Bowel sounds present Extremities/Musculoskeletal: normal inspection, no edema Neurologic/Psych: awake and alert, answers appropriately, speech fluent, moves extremities Skin: normal color, warm, dry Discharge Data Allergies Allergy/AdvReac Type Severity Reaction Status Date / Time erythromycin base Allergy Unknown gi upset Verified 04/09/23 12:09 Penicillins Allergy Unknown hives, rash Verified 04/09/23 12:09 Sulfa (Sulfonamide AdvReac upset Verified 04/09/23 12:09 Antibiotics) stomach Consultations 04/09/23 12:49 ED Decision to Admit Stat Ordered Studies 04/09/23 09:29 CT head/brain wo con Stat FINDINGS: Brain parenchyma: There is age-related involutional change noting moderate subcortical and periventricular microangiopathic disease. There is no hemorrhage, mass effect, or evidence of acute territorial ischemia by CT criteria. Bell-white matter differentiation is preserved. No extra-axial fluid collection is seen. Ventricles, sulci, cisterns: Prominent secondary to involutional change. Intracranial vasculature: There is atherosclerotic calcification of the cavernous carotid and vertebral arteries. Calvarium: The skeletal structures are osteopenic. No depressed calvarial fracture is seen. Sinuses and mastoids: The visualized paranasal sinuses are clear. The mastoid air cells are well pneumatized. Orbits: The bony orbits are grossly intact. There are bilateral ocular lens implants. IMPRESSION: There is no hemorrhage, mass effect, or evidence of acute territorial ischemia by CT criteria. 04/10/23 16:51 CT angio chest PE protocol Urgent FINDINGS: Pulmonary arteries: Unremarkable. No pulmonary embolism. Aorta: Atherosclerotic changes of the aorta. No thoracic aortic aneurysm. Lungs: Airspace consolidation in the RIGHT upper lobe, consistent with lobar pneumonia. Mild airspace consolidation also present in the lateral aspect of the lingula. Small RIGHT pleural effusion. Heart: Cardiomegaly. No significant pericardial effusion. No evidence of RV dysfunction. Bones/joints: Degenerative changes of the spine. Old fracture of the RIGHT humeral head. No dislocation. Soft tissues: Unremarkable. Lymph nodes: Unremarkable. No enlarged lymph nodes. Liver: Hepatic status. Gallbladder and bile ducts: Cholecystectomy. Tubes, lines and devices: Pacemaker leads. IMPRESSION: Airspace consolidation in the RIGHT upper lobe, consistent with lobar pneumonia. Mild airspace consolidation also present in the lateral aspect of the lingula. Small RIGHT pleural effusion. 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 Pneumonia Sepsis Acute metabolic encephalopathy Hypoxia due to above --CTA: Airspace consolidation in the RIGHT upper lobe, consistent with lobar pneumonia. Mild airspace consolidation also present in the lateral aspect of the lingula. Small RIGHT pleural effusion. --Blood cultures negative to date Received gentle IV fluids Lactic acidosis in setting of metformin, tamoxifen use, H/O breast cancer Continued cefepime, Flagyl, Doxy while inpt -> will discharge on cefuroxime and doxy Nebs as needed Weaned off of supplemental oxygen, currently on RA, saturating 96% UTI Urine culture growing E. coli On cefepime as above Hyponatremia Hypomagnesemia Hypophosphatemia Likely due to poor oral intake Replace electrolytes as needed Monitor Recurrent falls Ambulatory dysfunction Suspected syncope PT OT, fall precautions Imaging studies showed no acute fractures May need rehab placement Metabolic encephalopathy Reportedly with baseline confusion/dementia --CT Head:There is no hemorrhage, mass effect, or evidence of acute territorial ischemia by CT criteria. Possible worsening in setting of septic presentation noted above Continue to monitor Complete heart block s/p PPM placement 08/02/22 EKG with paced rhythm Cannot rule out syncopal event based on pt history Interrogated pacemaker while in the ED Echo 08/2022- EF 60-65%, aortic valve sclerosis Continue to monitor DM II HbA1c 8.5 Continue insulin Monitor Bgs Other chronic conditions: Hypertension Hyperlipidemia Hypothyroidism Continue home medications as appropriate Total Time Total Time Spent Total Time Spent (In Minutes): 40 Discharge Plan Discharge Items Patient Disposition: Transfer Group Home Fac Reason For Visit: UTI, FALLS Discharge Diagnosis: Falls, UTI, Pneumonia Activity: Per Instructions section Non-emergency contact: Primary Care Provider Call non-emergency contact if: you have any medication questions and your symptoms worsen Follow-up/Referrals: Annabella Victoria, [Primary Care Provider] - Diet: Carb Consistent or DM2 and Heart Healthy Addtl Attending Provider Instructions: Follow up with primary care doctor within 1 week. Finish antibiotic treatment as prescribed. Recommend taking probiotic while on antibiotic. Continue using flutter valve and incentive spirometer. Pending Studies at Discharge: Yes Studies:: final results of blood cultx Stand-Alone Forms: My [facility] Skilled Items Patient informed of condition?: Yes DNR: No Discharge Level of Care: Skilled Communicable Disease: No Discharge Prognosis: Stable Lines: None Urinary Catheter: No Medications and DC Order Prescriptions: New guaifenesin [Mucinex] 600 mg Tablet Extended Release 12hr 600 mg PO Q12 5 Days Qty: 10 0RF Advanced Probiotic 625 mg (10 billion cell) Capsule 2 cap PO DAILY 5 Days Qty: 10 0RF Mag 64 64 mg Tablet,Delayed Release (Dr/Ec) 64 mg PO DAILY 5 Days Qty: 5 0RF Phospha 250 Neutral 250 mg Tablet 1 tab PO QID 2 Days Qty: 8 0RF doxycycline hyclate 100 mg Capsule 100 mg PO BID 4 Days Qty: 8 0RF cefuroxime axetil 500 mg tablet 500 mg PO BID 4 Days Qty: 8 0RF Continued mirtazapine 15 mg tablet 15 mg PO HS tamoxifen 20 mg tablet 20 mg PO DAILY cholecalciferol (vitamin D3) 125 mcg (5,000 unit) capsule 125 mcg PO DAILY repaglinide 0.5 mg tablet 0.5 mg PO DAILY Rx Instructions: administer within 30 minutes of a meal or snack multivitamin Tablet 1 tab PO DAILY fluoride (sodium) [SF 5000 Plus] 1.1 % cream 1 applic dental DAILY aspirin 81 mg tablet,chewable 81 mg PO DAILY levothyroxine 50 mcg tablet 50 mcg PO DAILY losartan 100 mg tablet 100 mg PO DAILY pravastatin 40 mg tablet 40 mg PO DAILY omeprazole 20 mg tablet,delayed release (DR/EC) 20 mg PO DAILY PRN (Reason: Acid Reflux) metformin 500 mg tablet extended release 24 hr 1,000 mg PO BID metoprolol succinate 50 mg tablet extended release 24 hr 50 mg PO DAILY Trulicity 1.5 mg/0.5 mL pen injector 1.5 mg SUBCUT WK Rx Instructions: Sunday amlodipine 2.5 mg tablet 2.5 mg PO DAILY 30 Days Qty: 30 0RF Discharge Orders: Discharge Order (Routine); Ordered 04/13/23 Ordered By: Morales Jordan/Other Patient Handouts: High Blood Sugar (Hyperglycemia), Managing Type 2 Diabetes Admission Data Admit Date/Time: 04/09/23 13:26 Attending Provider: Morales Cobos Admit Provider: Shelton Armstrong Primary Care Provider: Annabella Victoria Other Providers: Shelton Armstrong; [place],Care
== END 2023-04-13 13:16 | DRG 871 ==
LOC: ED 08:46 → SUATTDRO 13:26 → EDINP 13:26 → 4W 15:30

== ENCOUNTER 2023-04-21 05:37 | Inpatient (IN) ==
[2023-04-21] MEDS ORDERED: ONDANSETRON INJ 2 MG/ML 2 ML VIAL IV STA (05:47)
[2023-04-21 06:08] LABS: Hematocrit (blood only) 25.8 % (37.0-47.0); Hemoglobin 8.1 g/dl (12.0-16.0); Mean Corpuscular Hgb Conc 31.4 g/dL (32.0-36.0); Mean Corpuscular Volume 92.5 fL (80.0-100.0); Mean Platelet Volume 10.2 fL (9.4-12.4); Platelet Count 520 K/uL (130-400); RDW Coefficient of Variation 14.6 % (11.5-14.5); RDW Standard Deviation 48.5 fL (36.4-46.3); Red Blood Count 2.79 M/uL (4.20-5.40); White Blood Count 24.19 K/ul (4.8-10.8)
[2023-04-21 06:10] LABS: iSTAT Creatinine 0.9 mg/dl (0.6-1.3); iSTAT Hemoglobin 8.2 g/dl (12.0-16.0); iSTAT Ionized Calcium 1.26 mmol/l (1.12-1.32); iSTAT Potassium 5.1 mmol/L (3.3-5.0)
[2023-04-21] MEDS ORDERED: FAMOTIDINE 20MG IV PUSH 20 MG/5 ML SYR IV STA (06:19)
[2023-04-21] MEDS ORDERED: OPTIRAY 320 500ml IV ONE (06:19)
[2023-04-21] MEDS ORDERED: PANTOprazole 80 MG in DEXTROSE 5% 100 ML IV STA (06:19)
[2023-04-21] MEDS ORDERED: ACETAMINOPHEN 1,000 MG/100 ML VIAL IV STA (06:24)
--- NOTE | 2023-04-21 06:36 | CT Scan Report ---
CT SCAN OF THE BRAIN WITHOUT IV CONTRAST CLINICAL HISTORY: Fall. Head injury. COMPARISON STUDY: CT of the brain dated 04/09/2023. TECHNIQUE: Unenhanced axial CT scan of the brain is performed from the vertex to the skull base. A do se lowering technique was utilized adhering to the principles of ALARA. FINDINGS: Brain parenchyma: There is age-related involutional change noting mild subcortical and periventricula r microangiopathic disease. There is no hemorrhage, mass effect, or evidence of acute territorial isc hemia by CT criteria. Bell-white matter differentiation is preserved. No extra-axial fluid collection is seen. Ventricles, sulci, cisterns: Prominent secondary to involutional change. Intracranial vasculature: There is atherosclerotic calcification of the cavernous carotid and vertebr al arteries. Calvarium: The skeletal structures are osteopenic. No depressed calvarial fracture is identified. Soft tissues: There is a small posterior scalp contusion. Sinuses and mastoids: The paranasal sinuses are clear. The mastoid air cells are well pneumatized. Orbits: The bony orbits are grossly intact. There are bilateral ocular lens implants. IMPRESSION: There is no hemorrhage, mass effect, or evidence of acute territorial ischemia by CT juanis arias. ACT 112: Negative or not required by law. Electronically signed by: Gerhard Orta M.D. 04/21/2023 6:33 AM
[2023-04-21 06:39] LABS: Albumin Level 2.8 gm/dl (3.4-5.0); BUN Creatinine Ratio 30.7 (10-20); Bilirubin,Total 0.3 mg/dl (0.2-1.0); Calcium 9.5 mg/dl (8.6-10.3); Creatinine Clr Calc Pharmacy 41.6 ml/min; Est GFR (African American) 71.4 ml/min; Est GFR (Non-African American) 61.6 ml/min; Globulin 2.7 gm/dl (2.5-4.0); Magnesium 1.1 mg/dl (1.7-2.4); Potassium 5.2 mmol/L (3.5-5.1); Thyroid Stimulating Hormone 3.833 uIu/ml (0.300-4.500); Total Protein 5.5 gm/dl (6.0-8.3)
--- NOTE | 2023-04-21 06:40 | CT Scan Report ---
CT SCAN OF THE CERVICAL SPINE CLINICAL HISTORY: Fall. COMPARISON STUDY: CT angiogram of the neck dated 08/23/2022. TECHNIQUE: CT scan of the cervical spine is performed from the skull base to the upper thoracic spine . Images are reviewed in the axial, sagittal, and coronal planes. IV contrast was not administered fo r this examination. A dose lowering technique was utilized adhering to the principles of ALARA. FINDINGS: Skeletal structures: The skeletal structures are osteopenic. There is no evidence of fracture or subl uxation involving the cervical spine. Vertebral body height and alignment are maintained. Small anter ior osteophytes are seen throughout. The odontoid process and lateral masses are intact. The atlantoa xial articulation is preserved noting mild productive degenerative change. The spinous processes appe ar intact. There is mild multilevel facet arthropathy. Intervertebral discs: There is minimal degenerative disc space narrowing. Central canal: Grossly patent. Soft tissues: The prevertebral and paraspinous soft tissues are within normal limits. There is athero sclerotic calcification of the carotid bulbs. Calvarium: The visualized calvarium at the skull base appears intact. Brain parenchyma: Partially visualized brain parenchyma at the skull base is within normal limits. Sinuses and mastoids: Secretions are noted in the right sphenoid sinus. The mastoid air cells are wel l pneumatized. Lung apices: Clear as visualized. IMPRESSION: There is no evidence of fracture or subluxation involving the cervical spine. ACT 112: Negative or not required by law. Electronically signed by: Gerhard Orta M.D. 04/21/2023 6:38 AM
[2023-04-21 06:46] LABS: Influenza A virus by PCR Negative (Neg); Influenza B virus by PCR Negative (Neg); RSV by PCR Negative (Neg); SARS CoV2 RNA(COVID-19) Ceph NEGATIVE (Negative)
--- NOTE | 2023-04-21 07:07 | CT Scan Report ---
CT SCAN OF THE ABDOMEN AND PELVIS WITH IV CONTRAST CLINICAL HISTORY: Nausea and vomiting. GI bleeding. Fall. COMPARISON STUDY: Radiation treatment planning CT dated 10/10/2022. TECHNIQUE: Following the IV administration of 77 cc of Optiray 320, CT scan of the abdomen and pelvi s is performed from the lung bases to the proximal femora. Images are reviewed in the axial, sagittal , and coronal planes. IV contrast was administered without complication. A dose lowering technique wa s utilized adhering to the principles of ALARA. CT DOSE: 2250.59 mGy.cm FINDINGS: Lung bases: The heart is mildly enlarged and without pericardial effusion. Pacemaker leads are in perla ce. The coronary arteries are densely calcified. Ectasia of the ascending thoracic aorta similar to p revious. This measures up to 3.8 cm. There are trace pleural effusions with dependent atelectasis. Liver: The contrast-enhanced liver is enlarged, measuring 18 cm in length. The liver is cirrhotic in morphology and heterogeneous in attenuation. There is hypertrophy of the left lobe and caudate, as we ll as nodularity of the hepatic surface contour. Continuation is diminished indicating steatosis. Roshan ronodularity is seen throughout the liver. There is no intrahepatic biliary ductal dilatation. The he patic veins and portal veins are patent. Gallbladder: Surgically absent and clips in the gallbladder fossa. Spleen: Normal in size and attenuation, measuring 9.9 cm in length. Pancreas: The pancreatic body and tail are atrophic. The duct is dilated, measuring up to 6 mm in abby meter, and there are large intraductal calculi in the region of the pancreatic neck seen on image #10 4. A 1.5 cm ovoid simple cystic lesion in the pancreatic neck is seen on image #94. Additional subcen timeter pancreatic cysts are noted. Adrenal glands: Unremarkable. Kidneys: The contrast enhanced kidneys demonstrate mild cortical atrophy and are without hydronephros is. The kidneys enhance symmetrically. Abdominal vasculature: The abdominal aorta is normal in course and caliber noting moderate atheroscle rotic calcification. Bowel: There is mild wall thickening seen at the gastroduodenal junction with surrounding infiltratio n. There is no bowel obstruction. The appendix is well-visualized and normal. Peritoneum: There is no intraperitoneal free air or abdominal ascites. Lymphadenopathy: Prominent lymph nodes in the livan hepatis are likely related to chronic liver disea se. Pelvic viscera: The bladder is normal as visualized. The uterus is heterogeneous, and the endometrium appears thickened and irregular. This measures up to 13 mm. No adnexal lesion is seen. Skeletal structures: The skeletal structures are heterogeneously osteopenic. There is an acute fractu re through the anterior osteophytes and superior endplate of T8, best seen on the sagittal reformatte d images. This does not reach the posterior cortex or involve the posterior elements. There is no sig nificant loss of height or retropulsion of fragments. Mild paravertebral edema is noted. The lumbosac ral spine, bony pelvis, and proximal femora appear intact. No lytic or blastic lesions are seen. IMPRESSION: 1. Acute fracture through the anterior osteophytes and superior endplate of T8. This does not involve the posterior elements, and there is no significant loss of height or retropulsion of fragments. The stability of this fracture is indeterminate. 2. No additional acute fracture is seen. 3. There is no evidence of solid organ injury in the abdomen or pelvis. 4. The liver is enlarged, steatotic, and cirrhotic in morphology. Micronodular throughout the liver m ay be regenerative. 5. There is mild wall thickening suggested at the gastroduodenal junction with surrounding infiltrati on. This could potentially be related to gastritis/duodenitis or possibly ulcer disease. If warranted this could be further assessed with endoscopy. 6. There are large calculi within the pancreatic duct in the region of the pancreatic neck. The dista l pancreas is severely atrophic with ductal dilatation, and these findings are similar to the radiation treatment planning CT. This is likely related to the presence of the ductal calculi. Ther e is no CT evidence of underlying mass lesion. Nonemergent follow-up with GI is recommended. 7. The uterus is heterogeneous and the endometrium is thickened and irregular. This is not well asses sed by CT. Nonemergent follow-up with gynecology and pelvic ultrasound is recommended for further ass essment and to exclude underlying endometrial lesion. 8. Trace pleural effusions. 9. Simple pancreatic cystic lesions measure up to 1.5 cm. 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 10. Additional findings as above. ACT 112: Negative or not required by law. Electronically signed by: Gerhard Orta M.D. 04/21/2023 7:04 AM
--- OUTSIDE RECORDS SUMMARY | 2023-04-21 07:08 | External Medical Summary | Summary of Care ---
Author Name Unknown Organization [facility] Address [address] [place] [address] Phone [phone] Care Team Providers Care Digital Photographic Printer Name Role Phone Annabella Victoria DO Primary Care Provider [phone] Reason for Visit * Reason Onset Date Comments Hospital Follow-Up 04/16/2023 Encounter Details Date Type Department Care Team (Late st Contact Info) Description 04/16/2023 Telephone Family Practice [facility] [address] [facility] ([place], [place]) [place] [address] Annabella Victoria DO [address] [facility] [place] [address] Hospital Follow-Up Allergies Active Allergy Reactions Criticality Noted Date Comments Pollen Other (Please comment) 03/22/2016 Itchy, inflamed eyes Penicillins Rash 03/22/2016 Sulfa Antibiotics Nausea/vomiting 03/22/2016 documented as of this encounter (statuses as of 04/16/2023) Medications Medication Sig Dispensed Refills Start Date End Date Status Omeprazole Magnesium 20 MG Oral Tablet Delayed Release (PriLOSEC OTC) Take 1 Tablet by mouth as needed for Heartburn. 0 Active Trulicity 1.5 MG/0.5ML Subcutaneous Solution Pen-injector (Dulaglutide)Indicati ons:Type 2 diabetes mellitus with hemoglobin A1c goal of less than 8.0% ([facility]) Inject under the skin 1.5 mg once a week . Do not start before April 03, 2022. 6 mL 3 04/03/2022 Active OneTouch Verio Reflect w/Device KitIndications:Type 2 diabetes mellitus with hemoglobin A1c goal of less than 8.0% ([facility]) Use as directed. Test Blood [...] complication, without long-term current use of insulin ([facility]),Dyslipidemia Take 1 Tablet by mouth in the morning. 90 Tablet 3 09/06/2022 Active Multivitamin Adults 50+ Oral Tablet Take 1 Tablet by mouth daily. 0 Active metFORMIN HCl ER 500 MG Oral Tablet Extended Release 24 Hour (Glucophage XR)Indications:Type 2 diabetes mellitus with hemoglobin A1c goal of less than 8.0% ([facility]),Type 2 diabetes mellitus without complication, without long-term current use of insulin ([facility]) Take 2 Tablets by mouth 2 times a day with morning and evening meals. 360 Tablet 3 10/09/2022 Active Sodium Fluoride 1.1 % Dental Cream [place] onto teeth every night at bedtime. 0 Active Tamoxifen Citrate 20 MG Oral TabletIndications:Inf iltrating ductal carcinoma of left breast (HCC),CLL (chronic lymphocytic leukemia) ([facility]) Take 1 Tablet by mouth in the morning. 90 Tablet 5 12/13/2022 Active OneTouch Delica Lancets 33GIndications:Type 2 diabetes mellitus with hemoglobin A1c goal of less than 8.0% ([facility]) Test Blood sugar two to three times per day. E11.9 300 Each 3 12/18/2022 Active Dulaglutide 1.5 MG/0.5ML Subcutaneous Solution Pen-injector (Trulicity) Inject 1.5 mg under the skin once a week. 2 mL 5 12/22/2022 Active Repaglinide 0.5 MG Oral Tablet (Prandin)Indications: Type 2 diabetes mellitus with hemoglobin A1c goal of less than 8.0% ([facility]),Type 2 diabetes mellitus without complication, without long-term current use of insulin ([facility]) Take 1 Tablet by mouth daily before breakfast. 90 Tablet 3 02/12/2023 Active OneTouch Verio In Vitro Strip (Glucose Blood)Indications:Typ e 2 diabetes mellitus with hemoglobin A1c goal of less than 8.0% ([facility]) Test Blood sugar two to [...] at bedtime. 30 Tablet 5 04/03/2023 Active Hospital, Clinic, or Other Facility Administered Medication Ordered Dose Route Frequency Start Date End Date Status vitamin b-12 (Cyanocobalamin) inj 1,000 mcgIndications:B12 deficiency 1000 mcg IM [id number] 11/24/2022 10/26/2023 Active documented as of this encounter (statuses as of 04/16/2023) Active Problems Problem Noted Date Diagnosed Date [...] sinus infections 05/25/2016 Overview: 05/23>Saw ENT in [place]; [place] 2 yrs ago- moved [place] -02/19--zpak,pred 03/22, pred 04/21;doxy 05/23--not on nasacort daily-resume and + claritin Preoperative general physical examination 2016 Overview: 07/21-l-m risk--0.3/-1.7--rpt 3 yrs Type 2 diabetes mellitus wit hout complication, without long-term current use of insulin 04/10/2016 HTN, goal below 140/90 04/10/2016 Dyslipidemia 04/10/2016 Acquired hypothyroidism 04/10/2016 documented as of this encounter (statuses as of 04/16/2023) Resolved Problems Problem Noted Date Diagnosed Date [...] csope-- 10/05/14- nl, gr 1 IH> At [place]--rpt 10 yrs documented as of this encounter (statuses as of 04/16/2023) Immunizations Name Administration Dates Next Due COVID-19 [...] encounter Miscellaneous Notes * Telephone Encounter - Hue Melendez RN - 04/16/2023 8:57 AM EST Transitions of Care Note Reason for Referral:Recent Admission Phone visit for follow up: GRADY Admitted to: [facility], Date: 04/09/23 Discharged to: SNF, Date: 12/8/23 Diagnosis driving hospitalization: UTI/PNA No GRADY call indicated, patient discharged to SNF after hospital admission documented in this encounter Plan of Treatment Upcoming Encounters Date Type Department Care Team (Late st Contact Info) Description 05/14/2023 3:30 PM EST Office Visit Pharmacy, [facility] [place] [address] [place] [address] Pharmacist2, [facility] [address] [place] [address] 05/17/2023 4:00 PM EST Telemedicine Orthopaedics [facility] [address] [place] [address] Dano Duñeas MD [address] [place] [phone] 05/30/2023 11:00 AM EST Imaging Radiology [facility] 1st Floor, [place] [address] [place] [address] 06/04/2023 2:30 PM EST Nutrition Services Nutrition, [facility] [address] [facility] [place] [address] Monica Perry, MARIAHN [address] [place] [address] 06/13/2023 10:30 AM EST Office Visit General Surgery, [facility] [address] [facility] [place] [address] Myke Pulliam MD [address] [place] [address] 06/20/2023 11:00 AM EST Immunization/Injection Hematology/Oncology Treatment, [place] [address] [place] [address] Nurse, Med [address] [facility] [place] [address] 08/29/2023 5:00 PM EDT Office Visit Family Practice [facility] [address] [place] [address] Annabella Victoria DO [address] [place] [address] 09/12/2023 11:00 AM EDT Laboratory Laboratory [facility] [address] [place] [id number] Ladan [facility] [address] [facility] [place] [address] 09/19/2023 12:30 PM EDT Office Visit Hematology/Oncology [facility] [address] [place] [address] Macey Cruz MD [address] [place] [address] 09/25/2023 9:30 AM EDT Cardiac Studies Cardiology, [facility] [address] [facility] [place] [address] [address] [facility] [address] [facility] [place] [address] Health Maintenance Due Date Last Done Comments [...] D LEVEL ONCE IN A LIFETIME-USE SMARTSET# [id number] Completed 11/14/2022 GARDASIL-HPV IMMUNIZATION SERIES Aged Out No longer eligible based on patient's age to complete this topic MENINGOCOCCAL (MENACTRA/MENVEO) Aged Out No longer eligible based on patient's age to complete this topic documented as of this encounter Medical Devices Implanted Type Area Food Operations Manager Device Identifier Shelf Expiration Date Model / Serial / Lot Lens Intraoc 19.0 - [id number] - [id number] Implanted:Qty: 1 on 12/13/2021 by Mitchell Guzman MD at OR [facility] Left: Eye [employer] 06/06/2026 [id number] / [id number] / [id number] Lens Intraoc 19.0 - [id number] - [id number] Implanted:Qty: 1 on 12/27/2021 by Mitchell Guzman MD at OR [facility] Right: Eye [employer] 06/06/2026 [id number] / [id number] / [id number] documented as of this encounter Advance Directives [...] patient have Health Care Power of Legal Secretary Receptionist? No Code Status History Code Status Date Activated Date Inactivated Comments No Code 12/13/2021 6:43 AM 12/13/2021 1:23 PM This or tim reflects the patients wishes and were consensually agreed upon. Question Answer Comments Discussion of Advance Directives occurred with: Patient Does the patient have a Living Will? No Does the patient have Health Care Power of Legal Secretary Receptionist? No Care Teams Digital Photographic Printer Relationship Specialty Start Date End Date Annabella Victoria DO [address] [place] [address] PCP - General Family Medicine 07/19/17 documented as of this encounter
[2023-04-21 07:14] LABS: Basophils # (auto) 0.07 K/uL (0.00-0.20); Basophils % (auto) 0.3 %; Eosinophils # (auto) 0.02 K/uL (0.00-0.50); Eosinophils % (auto) 0.1 %; Immature Granulocytes # (auto) 0.21 K/uL (0.01-0.20); Immature Granulocytes % (auto) 0.9 %; Lymphocytes # (auto) 7.02 K/uL (1.20-3.40); Monocytes # (auto) 0.99 K/uL (0.11-0.59); Monocytes % (auto) 4.1 %; Neutrophils # (auto) 15.88 K/uL (1.40-6.50); Neutrophils % (auto) 65.6 %; Polychromasia 2+
--- NOTE | 2023-04-21 07:14 | Emergency Department Note ---
Impression & Plan Fall from standing, Hypomagnesemia, Acute upper GI bleed, Acute hyperkalemia, Closed T8 spinal fracture, Hyperglycemia, Anemia ED Provider Note HISTORY OF PRESENT ILLNESS: Patient is an 82-year-old female presenting with back pain and melena. Patient reports that she was getting up from the bathroom commode at around 4 AM when she states that she lost her balance and fell. States that she then had an episode of black diarrhea and vomited a black substance. She is unable to get up on her own and staff found her on the floor. Patient states that they helped her shower and put her back into bed. She then had another episode of dark color vomitus and black diarrhea. Patient states that she has been having this black diarrhea for the last week. Denies any abdominal pain. She is currently complaining of pain in her mid back from her fall. She did strike her head but is unsure if she lost consciousness. She is on 81 mg of aspirin daily. Denies any numbness or tingling in her extremities. Patient denies any chest pain or shortness of breath prior to the fall. Denies any history of DVT or PE. ROS: as above PHYSICAL EXAM: Constitutional: Patient appears in no acute distress. HENT: Head: Normocephalic. Hematoma to the posterior upper crown of the head. Eyes: EOMI, PERRL Mouth/Throat: Mucous membranes moist. Neck: Trachea midline. Neck supple. Cardiovascular: Tachycardic with regular rhythm. No murmurs, rubs or gallops. Intact distal pulses. Pulmonary/Chest: No respiratory distress. Breath sounds clear and equal bilaterally. No wheezes or rales. Abdominal: Abdomen soft, no tenderness, rebound or guarding. Back: No paraspinal tenderness, no CVA tenderness. Patient has midline mid thoracic tenderness to palpation. No obvious step-offs or deformities Rectal: Chaperoned by nursing staff. No palpable masses or hemorrhoids. Melanotic stool. Heme occult positive. Musculoskeletal: No edema, tenderness or deformity noted. Skin: Warm and dry. No rash, erythema, pallor or cyanosis Psychiatric: Appropriate mood and affect for situation. Neurological: Alert and keenly responsive. CN II-XII grossly intact, moving all extremities equally and fully. MDM: - Vitals signs showed tachycardic and hypoxic. Started on 2L NC. - History obtained via patient. Patient presents with back pain and melena. Patient reports that she was getting up from the commode around 4 AM when she lost her balance and fell. She states she had an episode of black diarrhea and vomited a black substance. She was unable to get up on her own and staff at the facility helped her up and got her into the shower and report her back into bed. She states she has had black diarrhea for the last week. She denies any anticoagulation use other than aspirin. She did strike her head but is not sure if she lost consciousness. Denies any chest pain or shortness of breath prior to the fall. Denies any DVT or PE history. - Chronic conditions affecting care: HLD; DM-2; hypothyroidism; breast cancer; CLL - Differential diagnoses include, but are not limited to: intracranial hemorrhage; CVA; spinal fracture; abdominal organ injury; upper GI bleed; ACS; pneumonia; UTI - Order placed for continuous cardiac monitoring. At this time, monitor showed rate of 92 bpm with paced rhythm, per my interpretation. - External medical records reviewed. EMS run sheet reviewed. Patient vitally stable in route. No meds given prehospital. - EKG interpreted by myself showed AV paced rhythm. Rate 106 bpm. - Laboratory workup interpreted by myself showed leukocytosis (WBC 24.19) with left shift; anemia (Hgb 8.1 - down from 11.6 eight days ago); thrombocytosis (plt 520); hyperkalemia (K 5.2); elevated BUN (27 - consistent with GI bleed); hyperglycemia (glucose 371); hypomagnesemia (Mg 1.1); normal troponin; normal TSH - COVID/flu/RSV negative - CT head wo contrast neck for acute pathology. CT cervical spine wo contrast negative for acute injury. - CT abdomen/pelvis with IV contrast showed acute fracture of the superior endplate and anterior osteophytes at T8. Also noted to have mild wall thickening of the gastroduodenal junction with surrounding inflammation, concerning for gastritis/duodenitis versus ulcer disease. Incidentally noted to have a large calculus within the pancreatic duct. - CXR negative for pneumonia, per my interpretation - Patient given 4 mg IV zofran, 20 mg IV Pepcid and 1g IV acetaminophen on arrival to ER. Given 80 mg protonix, 1L NS, 1g IV calcium and 5 units IV insulin for GI bleed and hyperkalemia. - Given 2g IV magnesium for electrolyte replacement. - Patient consented for her eventual blood transfusion, but no blood was ordered for transfusion at this point, as her hemoglobin is >8. - Discussion was had with ambulatory care nurse about patient's case and need for admission - Hospitalist consulted for admission - [facility] ASSESSMENT AND PLAN: Diagnosis: fall from standing; T8 fracture; upper GI bleed; hyperkalemia; hyperglycemia; hypomagnesemia; anemia Plan: admit Past Med/Surg History Medical History Ductal carcinoma in situ (DCIS) of left breast CLL (chronic lymphocytic leukemia) Hypothyroidism Diabetes mellitus type 2 in nonobese AV heart block High cholesterol Neuropathy History of chicken pox Surgical History H/O right breast biopsy cyst; benign; 15 years ago S/P placement of cardiac pacemaker S/P lumpectomy, left breast S/P left mastectomy History of cryosurgery to cervix d/t cervical erosion S/P oophorectomy right S/P tonsillectomy S/P cholecystectomy S/P wisdom tooth extraction S/P tubal ligation Family History Grandmother (Paternal) Breast cancer Mother CHF (congestive heart failure) Father COPD (chronic obstructive pulmonary disease) Heart disease Emphysema lung Denies family history of Ovarian cancer Prostate cancer Colorectal cancer Social History Smoking Status: Never smoker Second Hand Exposure: Yes; Do You Dip or Chew Tobacco: No; Hx Alcohol Use: No Hx Substance Use: No Preferred Language: Nepali Communication Ability: Effective Time Analysis Clerk Required: No Beliefs That Will Affect Care: None Current Living Situation: Alone 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; 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 Feels Safe at Home: Yes Assistive Devices: Cane Allergies Allergies Allergy/AdvReac Type Severity Reaction Status Date / Time erythromycin base Allergy Unknown gi upset Verified 04/09/23 12:09 Penicillins Allergy Unknown hives, rash Verified 04/09/23 12:09 Sulfa (Sulfonamide AdvReac upset Verified 04/09/23 12:09 Antibiotics) stomach Home Meds Home Medications Medication Instructions Recorded Confirmed aspirin 81 mg chewable tablet 81 mg PO DAILY 12/30/18 04/09/23 levothyroxine 50 mcg tablet 50 mcg PO DAILY 12/30/18 04/09/23 losartan 100 mg tablet 100 mg PO DAILY 12/30/18 04/09/23 pravastatin 40 mg tablet 40 mg PO DAILY 12/30/18 04/09/23 dulaglutide 1.5 mg/0.5 mL 1.5 mg subcut WK 08/13/22 04/09/23 subcutaneous pen injector (Trulicity) metoprolol succinate 50 mg 50 mg PO DAILY 08/13/22 04/09/23 tablet,extended release 24 hr multivitamin 1 tab PO DAILY 10/05/22 04/09/23 omeprazole 20 mg tablet,delayed 20 mg PO DAILY PRN Acid Reflux 10/05/22 04/09/23 release metformin 500 mg tablet,extended 1,000 mg PO BID 10/23/22 04/09/23 release 24 hr fluoride (sodium) 1.1 % dental 1 applic dental DAILY 11/06/22 04/09/23 cream (SF 5000 Plus) cholecalciferol (vitamin D3) 125 125 mcg PO DAILY 03/06/23 04/09/23 mcg (5,000 unit) capsule mirtazapine 15 mg tablet 15 mg PO HS 03/06/23 04/09/23 repaglinide 0.5 mg tablet 0.5 mg PO DAILY 03/06/23 04/09/23 tamoxifen 20 mg tablet 20 mg PO DAILY 03/06/23 04/09/23 Previous Rx's Medication Instructions Recorded amlodipine 2.5 mg tablet 2.5 mg PO DAILY 30 days #30 tabs 08/03/22 Results & Data (ED) Vital Signs Vital Signs - 24 hr 04/21/23 05:41 04/21/23 05:41 04/21/23 06:20 Temperature 36.7 C Temperature Source Oral Pulse Rate 103 H 108 H 102 H Pulse Rate [Apical] Respiratory Rate 18 20 Respiratory Effort / Characteristics Non-Labored Spontaneous Respiratory Depth Normal Respiratory Pattern Regular Blood Pressure 129/76 Blood Pressure [Left Arm] Blood Pressure Mean 93 Blood Pressure Mean [Left Arm] Blood Pressure Position Lying Pulse Oximetry 92 93 Oxygen Delivery Method Room Air Oxygen Flow Rate Sepsis Recent Fever Within 48 Hours No Sepsis New/Unexplained Change in Mental Status N/A Sepsis Action Taken by Nursing No Action Required 04/21/23 06:22 04/21/23 06:24 04/21/23 07:11 Temperature Temperature Source Pulse Rate 99 H 96 H Pulse Rate [Apical] 92 H Respiratory Rate 16 Respiratory Effort / Characteristics Respiratory Depth Respiratory Pattern Blood Pressure Blood Pressure [Left Arm] 124/57 L Blood Pressure Mean Blood Pressure Mean [Left Arm] 79 Blood Pressure Position Pulse Oximetry 87 L 95 93 Oxygen Delivery Method Room Air Nasal Cannula Nasal Cannula Oxygen Flow Rate 2 2 Sepsis Recent Fever Within 48 Hours Sepsis New/Unexplained Change in Mental Status Sepsis Action Taken by Nursing Laboratory Data 04/21/23 05:45 04/21/23 05:45 Lab Results 04/21/23 04/21/23 04/21/23 Range/Units 05:44 05:45 05:58 WBC 24.19 H (4.8-10.8) K/ul RBC 2.79 L (4.20-5.40) M/uL Hgb 8.1 L (12.0-16.0) g/dl POC Hgb 8.2 L (12.0-16.0) g/dl Hct 25.8 L (37.0-47.0) % POC Hct 24 L (37-47) % MCV 92.5 (80.0-100.0) fL MCH 29.0 (25.0-34.0) pg MCHC 31.4 L (32.0-36.0) g/dL RDW Std Deviation 48.5 H (36.4-46.3) fL RDW Coeff of Karrie 14.6 H (11.5-14.5) % Plt Count 520 H (130-400) K/uL MPV 10.2 (9.4-12.4) fL Immature Gran % (Auto) 0.9 % Neut % (Auto) 65.6 % Lymph % (Auto) 29.0 % [place] % (Auto) 4.1 % Eos % (Auto) 0.1 % Baso % (Auto) 0.3 % Neut # (Auto) 15.88 H (1.40-6.50) K/uL Lymph # (Auto) 7.02 H (1.20-3.40) K/uL [place] # (Auto) 0.99 H (0.11-0.59) K/uL Eos # (Auto) 0.02 (0.00-0.50) K/uL Baso # (Auto) 0.07 (0.00-0.20) K/uL Immature Gran # (Auto) 0.21 H (0.01-0.20) K/uL Polychromasia 2+ POC Sodium 134 L (135-144) mmol/L Sodium 135 L (136-145) mmol/L POC Potassium 5.1 H (3.3-5.0) mmol/L Potassium 5.2 H (3.5-5.1) mmol/L POC Chloride 97 L (101-112) mmol/L Chloride 99 (98-107) mmol/L Carbon Dioxide 27 (21-32) mmol/L POC Total CO2 25 (24-31) mmol/L Anion Gap 9 (3-11) POC Anion Gap 17.0 (16-25) mmol/L POC BUN 25 H (7-18) mg/dl BUN 27 H (6-23) mg/dl Creatinine 0.88 (0.6-1.2) mg/dl POC Creatinine 0.9 (0.6-1.3) mg/dl Est Cr Clr Drug Dosing 41.6 ml/min Est GFR ( Amer) 71.4 ml/min Est GFR (Non-Af Amer) 61.6 ml/min BUN/Creatinine Ratio 30.7 H (10-20) Glucose 371 H* (70-99(Fasting)) mg/dl POC Glucose (other) 349 H (70-99) mg/dl Calcium 9.5 (8.6-10.3) mg/dl POC Ioniz Calcium Barber 1.26 (1.12-1.32) mmol/l Magnesium 1.1 L (1.7-2.4) mg/dl Total Bilirubin 0.3 (0.2-1.0) mg/dl AST 21 (13-39) U/L ALT 16 (7-52) U/L Alkaline Phosphatase 57 (34-104) U/L Total Creatine Kinase 15 L (26-192) U/L Troponin I High Sens 9.0 (0-14) pg/ml Total Protein 5.5 L (6.0-8.3) gm/dl Albumin 2.8 L (3.4-5.0) gm/dl Globulin 2.7 (2.5-4.0) gm/dl Albumin/Globulin Ratio 1.0 (0.9-2) TSH 3.833 (0.300-4.500) uIu/ml SARS-CoV-2 (PCR) NEGATIVE (Negative) Influenza Type A (PCR) Negative (Neg) Influenza Type B (PCR) Negative (Neg) RSV (RT-PCR) Negative (Neg) Blood Type Antibody Screen 04/21/23 Range/Units 06:25 WBC (4.8-10.8) K/ul RBC (4.20-5.40) M/uL Hgb (12.0-16.0) g/dl POC Hgb (12.0-16.0) g/dl Hct (37.0-47.0) % POC Hct (37-47) % MCV (80.0-100.0) fL MCH (25.0-34.0) pg MCHC (32.0-36.0) g/dL RDW Std Deviation (36.4-46.3) fL RDW Coeff of Karrie (11.5-14.5) % Plt Count (130-400) K/uL MPV (9.4-12.4) fL Immature Gran % (Auto) % Neut % (Auto) % Lymph % (Auto) % [place] % (Auto) % Eos % (Auto) % Baso % (Auto) % Neut # (Auto) (1.40-6.50) K/uL Lymph # (Auto) (1.20-3.40) K/uL [place] # (Auto) (0.11-0.59) K/uL Eos # (Auto) (0.00-0.50) K/uL Baso # (Auto) (0.00-0.20) K/uL Immature Gran # (Auto) (0.01-0.20) K/uL Polychromasia POC Sodium (135-144) mmol/L Sodium (136-145) mmol/L POC Potassium (3.3-5.0) mmol/L Potassium (3.5-5.1) mmol/L POC Chloride (101-112) mmol/L Chloride (98-107) mmol/L Carbon Dioxide (21-32) mmol/L POC Total CO2 (24-31) mmol/L Anion Gap (3-11) POC Anion Gap (16-25) mmol/L POC BUN (7-18) mg/dl BUN (6-23) mg/dl Creatinine (0.6-1.2) mg/dl POC Creatinine (0.6-1.3) mg/dl Est Cr Clr Drug Dosing ml/min Est GFR ( Amer) ml/min Est GFR (Non-Af Amer) ml/min BUN/Creatinine Ratio (10-20) Glucose (70-99(Fasting)) mg/dl POC Glucose (other) (70-99) mg/dl Calcium (8.6-10.3) mg/dl POC Ioniz Calcium Barber (1.12-1.32) mmol/l Magnesium (1.7-2.4) mg/dl Total Bilirubin (0.2-1.0) mg/dl AST (13-39) U/L ALT (7-52) U/L Alkaline Phosphatase (34-104) U/L Total Creatine Kinase (26-192) U/L Troponin I High Sens (0-14) pg/ml Total Protein (6.0-8.3) gm/dl Albumin (3.4-5.0) gm/dl Globulin (2.5-4.0) gm/dl Albumin/Globulin Ratio (0.9-2) TSH (0.300-4.500) uIu/ml SARS-CoV-2 (PCR) (Negative) Influenza Type A (PCR) (Neg) Influenza Type B (PCR) (Neg) RSV (RT-PCR) (Neg) Blood Type O Positive Antibody Screen NEGATIVE Administered Medications Discontinued Medications Pantoprazole Sodium 80 mg/ (Dextrose) 120 mls @ 480 mls/hr IV ONE STA Stop: 04/21/23 06:33 Last Infusion: 04/21/23 07:35 Dose: Infused Documented By: Admin: 04/21/23 07:07 Dose: 480 mls/hr Documented By: JAZLYN Famotidine (Pepcid 20mg Iv Push) 20 mg in 5 mls @ 2.5 mls/min IV NOW STA Stop: 04/21/23 06:20 Last Admin: 04/21/23 06:27 Dose: 2.5 mls/min Documented By: Acetaminophen (Ofirmev) 1,000 mg in 100 mls @ 400 mls/hr IV NOW STA Stop: 04/21/23 06:38 Last Infusion: 04/21/23 07:05 Dose: Infused Documented By: Admin: 04/21/23 06:30 Dose: 400 mls/hr Documented By: Ioversol (Optiray 320 500ml) 77 ml IV ONCE ONE Stop: 04/21/23 06:20 Last Admin: 04/21/23 06:20 Dose: 77 ml Documented By: CROW Ondansetron HCl (Ondansetron Inj 2 Mg/Ml 2 Ml Vial) 4 mg IV NOW STA Stop: 04/21/23 05:48 Last Admin: 04/21/23 06:19 Dose: 4 mg Documented By: Imaging Data Radiologist's Impression: Cervical Spine CT 04/21/23 05:47 CT SCAN OF THE CERVICAL SPINE CLINICAL HISTORY: Fall. COMPARISON STUDY: CT angiogram of the neck dated 08/23/2022. TECHNIQUE: CT scan of the cervical spine is performed from the skull base to the upper thoracic spine. Images are reviewed in the axial, sagittal, and coronal planes. IV contrast was not administered for this examination. A dose lowering technique was utilized adhering to the principles of ALARA. FINDINGS: Skeletal structures: The skeletal structures are osteopenic. There is no evidence of fracture or subluxation involving the cervical spine. Vertebral body height and alignment are maintained. Small anterior osteophytes are seen throughout. The odontoid process and lateral masses are intact. The atlantoaxial articulation is preserved noting mild productive degenerative change. The spinous processes appear intact. There is mild multilevel facet arthropathy. Intervertebral discs: There is minimal degenerative disc space narrowing. Central canal: Grossly patent. Soft tissues: The prevertebral and paraspinous soft tissues are within normal limits. There is atherosclerotic calcification of the carotid bulbs. Calvarium: The visualized calvarium at the skull base appears intact. Brain parenchyma: Partially visualized brain parenchyma at the skull base is within normal limits. Sinuses and mastoids: Secretions are noted in the right sphenoid sinus. The mastoid air cells are well pneumatized. Lung apices: Clear as visualized. IMPRESSION: There is no evidence of fracture or subluxation involving the cervical spine. ACT 112: Negative or not required by law. Electronically signed by: Gerhard Orta M.D. 04/21/2023 6:38 AM Chest X-Ray 04/21/23 05:47 SINGLE VIEW CHEST CLINICAL HISTORY: Generalized weakness. Fall. FINDINGS: An AP, portable, upright chest radiograph is compared to study dated 04/09/2023 and correlated with chest CT dated 04/10/2023 The examination is degraded by portable technique and patient rotation. . A 2-lead cardiac pacemaker is unchanged in position. The heart is enlarged noting atherosclerotic calcification of the thoracic aorta. The pulmonary vasculature is noncongested. There is bibasilar scarring/atelectasis. No airspace consolidation or large pleural effusion is identified. There are scattered foci of parenchymal scarring. No pneumothorax is seen. The skeletal structures are osteopenic. The bony thorax is grossly intact. Degenerative change is noted in the shoulders and spine. Cholecystectomy clips are noted in the right upper quadrant. IMPRESSION: 1. Cardiomegaly and cardiac pacemaker without radiographic evidence of congestive failure. 2. No airspace consolidation or large pleural effusion is identified. Right upper lobe consolidation seen on 04/09/2023 has almost completely resolved. ACT 112: Negative or not required by law. Electronically signed by: Gerhard Orta M.D. 04/21/2023 7:[address] 04/21/23 05:47 CT SCAN OF THE BRAIN WITHOUT IV CONTRAST CLINICAL HISTORY: Fall. Head injury. COMPARISON STUDY: CT of the brain dated 04/09/2023. TECHNIQUE: Unenhanced axial CT scan of the brain is performed from the vertex to the skull base. A dose lowering technique was utilized adhering to the principles of ALARA. FINDINGS: Brain parenchyma: There is age-related involutional change noting mild subcortical and periventricular microangiopathic disease. There is no hemorrhage, mass effect, or evidence of acute territorial ischemia by CT criteria. Bell-white matter differentiation is preserved. No extra-axial fluid collection is seen. Ventricles, sulci, cisterns: Prominent secondary to involutional change. Intracranial vasculature: There is atherosclerotic calcification of the cavernous carotid and vertebral arteries. Calvarium: The skeletal structures are osteopenic. No depressed calvarial fracture is identified. Soft tissues: There is a small posterior scalp contusion. Sinuses and mastoids: The paranasal sinuses are clear. The mastoid air cells are well pneumatized. Orbits: The bony orbits are grossly intact. There are bilateral ocular lens implants. IMPRESSION: There is no hemorrhage, mass effect, or evidence of acute territorial ischemia by CT criteria. ACT 112: Negative or not required by law. Electronically signed by: Gerhard Orta M.D. 04/21/2023 6:33 AM Abdomen/Pelvis CT 04/21/23 05:55 CT SCAN OF THE ABDOMEN AND PELVIS WITH IV CONTRAST CLINICAL HISTORY: Nausea and vomiting. GI bleeding. Fall. COMPARISON STUDY: Radiation treatment planning CT dated 10/10/2022. TECHNIQUE: Following the IV administration of 77 cc of Optiray 320, CT scan of the abdomen and pelvis is performed from the lung bases to the proximal femora. Images are reviewed in the axial, sagittal, and coronal planes. IV contrast was administered without complication. A dose lowering technique was utilized adhering to the principles of ALARA. CT DOSE: 2250.59 mGy.cm FINDINGS: Lung bases: The heart is mildly enlarged and without pericardial effusion. Pacemaker leads are in place. The coronary arteries are densely calcified. Ectasia of the ascending thoracic aorta similar to previous. This measures up to 3.8 cm. There are trace pleural effusions with dependent atelectasis. Liver: The contrast-enhanced liver is enlarged, measuring 18 cm in length. The liver is cirrhotic in morphology and heterogeneous in attenuation. There is hypertrophy of the left lobe and caudate, as well as nodularity of the hepatic surface contour. Continuation is diminished indicating steatosis. Micronodularity is seen throughout the liver. There is no intrahepatic biliary ductal dilatation. The hepatic veins and portal veins are patent. Gallbladder: Surgically absent and clips in the gallbladder fossa. Spleen: Normal in size and attenuation, measuring 9.9 cm in length. Pancreas: The pancreatic body and tail are atrophic. The duct is dilated, measuring up to 6 mm in diameter, and there are large intraductal calculi in the region of the pancreatic neck seen on image #104. A 1.5 cm ovoid simple cystic lesion in the pancreatic neck is seen on image #94. Additional subcentimeter pancreatic cysts are noted. Adrenal glands: Unremarkable. Kidneys: The contrast enhanced kidneys demonstrate mild cortical atrophy and are without hydronephrosis. The kidneys enhance symmetrically. Abdominal vasculature: The abdominal aorta is normal in course and caliber noting moderate atherosclerotic calcification. Bowel: There is mild wall thickening seen at the gastroduodenal junction with surrounding infiltration. There is no bowel obstruction. The appendix is well- visualized and normal. Peritoneum: There is no intraperitoneal free air or abdominal ascites. Lymphadenopathy: Prominent lymph nodes in the livan hepatis are likely related to chronic liver disease. Pelvic viscera: The bladder is normal as visualized. The uterus is heterogeneous, and the endometrium appears thickened and irregular. This measures up to 13 mm. No adnexal lesion is seen. Skeletal structures: The skeletal structures are heterogeneously osteopenic. There is an acute fracture through the anterior osteophytes and superior endplate of T8, best seen on the sagittal reformatted images. This does not reach the posterior cortex or involve the posterior elements. There is no significant loss of height or retropulsion of fragments. Mild paravertebral edema is noted. The lumbosacral spine, bony pelvis, and proximal femora appear intact. No lytic or blastic lesions are seen. IMPRESSION: 1. Acute fracture through the anterior osteophytes and superior endplate of T8. This does not involve the posterior elements, and there is no significant loss of height or retropulsion of fragments. The stability of this fracture is indeterminate. 2. No additional acute fracture is seen. 3. There is no evidence of solid organ injury in the abdomen or pelvis. 4. The liver is enlarged, steatotic, and cirrhotic in morphology. Micronodular throughout the liver may be regenerative. 5. There is mild wall thickening suggested at the gastroduodenal junction with surrounding infiltration. This could potentially be related to gastritis/duodenitis or possibly ulcer disease. If warranted this could be further assessed with endoscopy. 6. There are large calculi within the pancreatic duct in the region of the pancreatic neck. The distal pancreas is severely atrophic with ductal dilatation, and these findings are similar to the 10/10/[address] This is likely related to the presence of the ductal calculi. There is no CT evidence of underlying mass lesion. Nonemergent follow-up with GI is recommended. 7. The uterus is heterogeneous and the endometrium is thickened and irregular. This is not well assessed by CT. Nonemergent follow-up with gynecology and pelvic ultrasound is recommended for further assessment and to exclude underlying endometrial lesion. 8. Trace pleural effusions. 9. Simple pancreatic cystic lesions measure up to 1.5 cm. 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 10. Additional findings as above. ACT 112: Negative or not required by law. Electronically signed by: Gerhard Orta M.D. 04/21/2023 7:04 AM Discharge Plan Visit Data Chief Complaint: Fall Stated Complaint: Fall, N/V, GI Assessment ED Provider: Teena August Discharge Problem: Fall from standing, Hypomagnesemia, Acute upper GI bleed, Acute hyperkalemia, Closed T8 spinal fracture, Hyperglycemia, Anemia Forms Stand Alone Forms: My [facility] Prescriptions Prescriptions: No Action mirtazapine 15 mg tablet 15 mg PO HS tamoxifen 20 mg tablet 20 mg PO DAILY cholecalciferol (vitamin D3) 125 mcg (5,000 unit) capsule 125 mcg PO DAILY repaglinide 0.5 mg tablet 0.5 mg PO DAILY Rx Instructions: administer within 30 minutes of a meal or snack multivitamin Tablet 1 tab PO DAILY fluoride (sodium) [SF 5000 Plus] 1.1 % cream 1 applic dental DAILY aspirin 81 mg tablet,chewable 81 mg PO DAILY levothyroxine 50 mcg tablet 50 mcg PO DAILY losartan 100 mg tablet 100 mg PO DAILY pravastatin 40 mg tablet 40 mg PO DAILY omeprazole 20 mg tablet,delayed release (DR/EC) 20 mg PO DAILY PRN (Reason: Acid Reflux) metformin 500 mg tablet extended release 24 hr 1,000 mg PO BID metoprolol succinate 50 mg tablet extended release 24 hr 50 mg PO DAILY Trulicity 1.5 mg/0.5 mL pen injector 1.5 mg SUBCUT WK Rx Instructions: Sunday amlodipine 2.5 mg tablet 2.5 mg PO DAILY 30 Days Qty: 30 0RF Referrals Referrals: Annabella Victoria DO [Primary Care Provider] -
[2023-04-21] MEDS ORDERED: NovoLIN-R INSULIN PER UNIT CHARGE IV STA (07:43)
[2023-04-21] MEDS ORDERED: SODIUM CHLORIDE 0.9% 1,000 ML IV ONE (07:43)
--- NOTE | 2023-04-21 07:46 | XRay Report ---
SINGLE VIEW CHEST CLINICAL HISTORY: Generalized weakness. Fall. FINDINGS: An AP, portable, upright chest radiograph is compared to study dated 04/09/2023 and correlat ed with chest CT dated 04/10/2023 The examination is degraded by portable technique and patient rotati on. . A 2-lead cardiac pacemaker is unchanged in position. The heart is enlarged noting atherosclerot ic calcification of the thoracic aorta. The pulmonary vasculature is noncongested. There is bibasilar scarring/atelectasis. No airspace consolidation or large pleural effusion is identified. There are s cattered foci of parenchymal scarring. No pneumothorax is seen. The skeletal structures are osteopeni c. The bony thorax is grossly intact. Degenerative change is noted in the shoulders and spine. Cholec ystectomy clips are noted in the right upper quadrant. IMPRESSION: 1. Cardiomegaly and cardiac pacemaker without radiographic evidence of congestive failure. 2. No airspace consolidation or large pleural effusion is identified. Right upper lobe consolidation seen on 04/09/2023 has almost completely resolved. ACT 112: Negative or not required by law. Electronically signed by: Gerhard Orta M.D. 04/21/2023 7:45 AM
[2023-04-21] MEDS: MAGNESIUM SULFATE / D5W 1 GM/100 ML BAG IV SCH ×2 (07:55→08:59)
[2023-04-21] MEDS ORDERED: CALCIUM GLUCONATE 1,000 MG/60 ML BAG IV STA (08:00)
--- NOTE | 2023-04-21 08:44 | History & Physical Report ---
Date of Service April 21, 2023 Assessment & Plan (1) Acute upper GI bleed: Plan: Melena Acute Blood Loss Anemia Diarrhea likely due to above INR: Normal Hb dropped to 6.8 -CT abd suggestive of gastritis/duodenitis/ulcer disease Given recent antibiotic use, will check stool for C. difficile Hold Aspirin Will transfuse 2 units PRBCs Started on Protonix drip Monitor H&H Transfuse PRBCs as needed Avoid anticoagulants, NASIDs NPO , IV fluids GI consulted Acute T8 Fracture Recurrent Falls Ambulatory dysfunction--has been using walker at baseline -CT:Acute fracture through the anterior osteophytes and superior endplate of T8. This does not involve the posterior elements, and there is no significant loss of height or retropulsion of fragments. The stability of this fracture is indeterminate. Fall precautions PT OT Orthopedics consulted Pain control Leukocytosis No clear signs of infection currently Stool studies pending Urinalysis pending Consider antibiotics if develops any signs of sepsis Hypomagnesemia Replete electrolytes as needed Hyperkalemia Received calcium gluconate Monitor BMP Hypoxia Recently treated for Pneumonia --CXR:Cardiomegaly and cardiac pacemaker without radiographic evidence of congestive failure. No airspace consolidation or large pleural effusion is identified. Right upper lobe consolidation seen on 04/09/2023 has almost completely resolved. 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 DM Type II: Last HbA1c 8.5 Will hold oral diabetic meds ISS, basal Insulin, Accu checks Pharmacy Glycemic control consult Pharmacy to manage Insulin Other chronic conditions Complete heart block s/p PPM placement 08/02/22 Hypertension--hold antihypertensives 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 Patient is a poor historian. Most of the history is obtained from patient, old records, ER staff. Patient states that she is she was getting up from bathroom commode this morning and lost balance resulting in hitting her back of her head and fall. She denies any dizziness, lightheadedness, syncopal episode, change in vision, headache. Reports having significant back pain even with especially with movement. Admits to have semisolid black stools for about 1 week duration. She also had an episode of dark-colored emesis. Denies any history of chest pain, dyspnea, pedal edema, cough, hemoptysis, fever, chills, focal weakness, numbness, vertigo, slurred speech, facial deformity, abdominal pain, dysuria, hematuria. Allergies Allergy/AdvReac Type Severity Reaction Status Date / Time erythromycin base Allergy Unknown gi upset Verified 04/21/23 07:59 Penicillins Allergy Unknown hives, rash Verified 04/21/23 07:59 Sulfa (Sulfonamide AdvReac upset Verified 04/21/23 07:59 Antibiotics) stomach Home Medications Medication Instructions Recorded Confirmed Type aspirin 81 mg chewable tablet 81 mg PO DAILY 12/30/18 04/21/23 History levothyroxine 50 mcg tablet 50 mcg PO DAILY 12/30/18 04/21/23 History losartan 100 mg tablet 100 mg PO DAILY 12/30/18 04/21/23 History pravastatin 40 mg tablet 40 mg PO DAILY 12/30/18 04/21/23 History amlodipine 2.5 mg tablet 2.5 mg PO DAILY 30 days #30 tabs 08/03/22 04/21/23 Rx dulaglutide 1.5 mg/0.5 mL 1.5 mg subcut WK 08/13/22 04/21/23 History subcutaneous pen injector (Trulicity) metoprolol succinate 50 mg 50 mg PO DAILY 08/13/22 04/21/23 History tablet,extended release 24 hr multivitamin 1 tab PO DAILY 10/05/22 04/21/23 History omeprazole 20 mg tablet,delayed 20 mg PO DAILY PRN Acid Reflux 10/05/22 04/21/23 History release metformin 500 mg tablet,extended 1,000 mg PO BID 10/23/22 04/21/23 History release 24 hr fluoride (sodium) 1.1 % dental 1 applic dental DAILY 11/06/22 04/21/23 History cream (SF 5000 Plus) cholecalciferol (vitamin D3) 125 125 mcg PO DAILY 03/06/23 04/21/23 History mcg (5,000 unit) capsule mirtazapine 15 mg tablet 15 mg PO HS 03/06/23 04/21/23 History repaglinide 0.5 mg tablet 0.5 mg PO DAILY 03/06/23 04/21/23 History tamoxifen 20 mg tablet 20 mg PO DAILY 03/06/23 04/21/23 History Past Med/Surg History Medical History Ductal carcinoma in situ (DCIS) of left breast CLL (chronic lymphocytic leukemia) Hypothyroidism Diabetes mellitus type 2 in nonobese AV heart block High cholesterol Neuropathy History of chicken pox Surgical History H/O right breast biopsy cyst; benign; 15 years ago S/P placement of cardiac pacemaker S/P lumpectomy, left breast S/P left mastectomy History of cryosurgery to cervix d/t cervical erosion S/P oophorectomy right S/P tonsillectomy S/P cholecystectomy S/P wisdom tooth extraction S/P tubal ligation Family History Grandmother (Paternal) Breast cancer Mother CHF (congestive heart failure) Father COPD (chronic obstructive pulmonary disease) Heart disease Emphysema lung Denies family history of Ovarian cancer Prostate cancer Colorectal cancer Social History Smoking Status: Never smoker Second Hand Exposure: No; Do You Dip or Chew Tobacco: No; Tobacco Cessation Education Requested by Patient: No Hx Alcohol Use: No Hx Substance Use: No Preferred Language: Portuguese Communication Ability: Effective Valet Cashier Required: No Beliefs That Will Affect Care: None Current Living Situation: Longterm 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; 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 Other Information That Helps Us Care for You: No Feels Safe at Home: Yes Safety Concerns: Feels Safe At This Time Assistive Devices: None Review of Systems Review of Systems: All systems reviewed & are unremarkable except as noted in Subjective Physical Exam Physical Exam: Physical Exam: Vitals signs as noted above General Appearance:Moderately built and nourished, no apparent distress Head: normocephalic, Atraumatic Eyes: normal inspection, EOMI Neck: supple, Trachea midline Respiratory/Chest: Normal breath sounds, CTA, No accessory muscle use Cardiovascular: S1, S2, + murmur Abdomen/GI:Soft, Non tender, Bowel sounds present Back+ Tender mid thoracic Extremities/Musculoskeletal:normal inspection, no edema Neurologic/Psych:AAOX2, grossly no focal neurological deficits Skin: normal color, warm Results & Data Results & Data Vital Signs (Past 12 Hours) Vital Signs Temp Pulse Pulse Resp BP BP Pulse Ox 04/21/23 07:11 92 H 16 124/57 L 93 04/21/23 06:24 96 H 95 04/21/23 06:22 99 H 87 L 04/21/23 06:20 102 H 20 93 04/21/23 05:41 108 H 04/21/23 05:41 36.7 C 103 H 18 129/76 92 O2 Del Method O2 Flow Rate 04/21/23 07:11 Nasal Cannula 2 04/21/23 06:24 Nasal Cannula 2 04/21/23 06:22 Room Air 04/21/23 06:20 04/21/23 05:41 04/21/23 05:41 Room Air Laboratory Results Short CBC 04/21/23 Range/Units 05:45 WBC 24.19 H (4.8-10.8) K/ul Hgb 8.1 L (12.0-16.0) g/dl Hct 25.8 L (37.0-47.0) % Plt Count 520 H (130-400) K/uL BMP 04/21/23 05:45 Sodium 135 L Potassium 5.2 H Chloride 99 Carbon Dioxide 27 BUN 27 H Creatinine 0.88 Glucose 371 H* Calcium 9.5 Cardiac Enzymes 04/21/23 Range/Units 05:45 Total Creatine Kinase 15 L (26-192) U/L Liver Function 04/21/23 Range/Units 05:45 Total Bilirubin 0.3 (0.2-1.0) mg/dl AST 21 (13-39) U/L ALT 16 (7-52) U/L Alkaline Phosphatase 57 (34-104) U/L Albumin 2.8 L (3.4-5.0) gm/dl Diagnostic Findings --CT Head:There is no hemorrhage, mass effect, or evidence of acute territorial ischemia by CT criteria. --CT ABD:Acute fracture through the anterior osteophytes and superior endplate of T8. This does not involve the posterior elements, and there is no significant loss of height or retropulsion of fragments. The stability of this fracture is indeterminate. No additional acute fracture is seen. There is no evidence of solid organ injury in the abdomen or pelvis. The liver is enlarged, steatotic, and cirrhotic in morphology. Micronodular throughout the liver may be regenerative. There is mild wall thickening suggested at the gastroduodenal junction with surrounding infiltration. This could potentially be related to gastritis/duodenitis or possibly ulcer disease. If warranted this could be further assessed with endoscopy. There are large calculi within the pancreatic duct in the region of the pancreatic neck. The distal pancreas is severely atr ophic with ductal dilatation, and these findings are similar to the 10/10/[address] This is likely related to the presence of the ductal calculi. There is no CT evidence of underlying mass lesion. Nonemergent follow-up with GI is recommended. The uterus is heterogeneous and the endometrium is thickened and irregular. This is not well assessed by CT. Nonemergent follow-up with gynecology and pelvic ultrasound is recommended for further assessment and to exclude underlying endometrial lesion. Trace pleural effusions. Simple pancreatic cystic lesions measure up to 1.5 cm. 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 --CXR:Cardiomegaly and cardiac pacemaker without radiographic evidence of congestive failure. No airspace consolidation or large pleural effusion is ident ified. Right upper lobe consolidation seen on 04/09/2023 has almost completely resolved. ECG Additional Comments: --EKG: Atrial sensed ventricular paced rhythm, QTc 504. Code Status & VTE Plan VTE Prophylaxis Plan VTE Prophylaxis will be ordered: Yes
[2023-04-21 09:24] LABS: Ferritin 89.9 ng/ml (8-388)
[2023-04-21] MEDS ORDERED: MoRPHine SULFATE 2 MG/ML CARP IV ONE (10:05)
[2023-04-21] MEDS ORDERED: LANTUS PER UNIT CHARGE SQ SCH (11:45)
[2023-04-21] MEDS ORDERED: GLUCOSE 40% GEL 15 GM TUBE PO PRN (11:45)
[2023-04-21] MEDS ORDERED: PROMETHAZINE HCL 6.25 MG in SODIUM CHLORIDE 0.9% 50 ML IV PRN (11:45)
[2023-04-21] MEDS ORDERED: PHARMACY GLYCEMIC MGMT CONSULT PRN (11:45)
[2023-04-21] MEDS ORDERED: CARBOHYDRATES FOR HYPOGLYCEMIA PO PRN (11:45)
[2023-04-21] MEDS ORDERED: SODIUM CHLORIDE 0.9% 250 ML IV PRN ×2 (11:45→15:07)
[2023-04-21] MEDS ORDERED: GLUCOSE 10 TAB/TUBE PO PRN (11:45)
[2023-04-21] MEDS ORDERED: GLUCAGON FOR INJ 1 MG VIAL SQ PRN (11:45)
[2023-04-21] MEDS ORDERED: DEXTROSE 50% 50 ML SYRINGE IV PRN (11:45)
[2023-04-21] MEDS ORDERED: MAGNESIUM SULFATE / D5W 1 GM/100 ML BAG IV ONE (11:45)
[2023-04-21] MEDS ORDERED: POLYETHYLENE (MIRALAX) 17 GM PACK PO PRN (11:45)
[2023-04-21] MEDS ORDERED: PANTOPRAZOLE BOLUS/DRIP IV STA (11:45)
[2023-04-21] MEDS ORDERED: LIDOCAINE 5% 1 PATCH TD STA (11:58)
[2023-04-21] MEDS: SODIUM CHLORIDE 0.9% 1,000 ML IV SCH (12:31)
[2023-04-21] MEDS: INSULIN ASPART PER UNIT CHARGE SC SCH ×2 (13:03→18:31)
[2023-04-21] MEDS: METOPROLOL SUCC 50MG EXT REL TAB PO SCH (13:08)
[2023-04-21] MEDS ORDERED: LANTUS PER UNIT CHARGE SQ ONE (13:15)
--- NOTE | 2023-04-21 13:16 | Pharmacy Report ---
Pharmacy Glycemic Short Note 2 - Date of Service April 21, 2023 - Glycemic Short BSG Results (Last 24 hours): 04/21/23 04/21/23 04/21/23 05:45 05:58 12:56 Glucose 371 H* POC Glucose 236 H POC Glucose (other) 349 H OUTPATIENT ANTIDIABETIC REGIMEN: * Trulicity 1.5 mg SQ weekly * Prandin * HbA1C = 8.5% (04/11/23) ASSESSMENT: * Ms Plata is an 82 y/o F with a PMH of T2DM who presents with fall. Patient is currently NPO. * Previous hospitalization (04/2023) demonstrated patient tolerated Lantus 12 units BID Novolog CF 30 CR10. * Due to NPO status, will give Lantus 20 units SQ x 1 (20% reduction) * Will utilize previously tolerated Novolog. PLAN FOR INPATIENT GLYCEMIC CONTROL: * Hold outpatient oral diabetes medications * Basal insulin * Lantus 20 units SQ x 1 then re-evaluate * Bolus insulin * NovoLog per scale ACHS or Q6hrs while NPO * Goal Range: Low 110 mg/dL - High 140 mg/dL * Correction Factor: 30 mg/dL/unit * Nutritional / Prandial insulin per carb ratio of 1 unit per 10 grams CHO consumed
[2023-04-21 14:20] LABS: Adenovirus PCR Not Detected (NotDetected); Bordetella parapertussis PCR Not Detected (NotDetected); Bordetella pertussis PCR Not Detected (NotDetected); Chlamydia pneumoniae PCR Not Detected (NotDetected); Coronavirus 229E PCR Not Detected (NotDetected); Coronavirus CoV-2 (COVID19)PCR Not Detected (NotDetected); Coronavirus HKU1 PCR Not Detected (NotDetected); Coronavirus NL63 PCR Not Detected (NotDetected); Coronavirus OC43PCR Not Detected (NotDetected); Human Metapneumovirus PCR Not Detected (NotDetected); Influenza A PCR Not Detected (NotDetected); Influenza B PCR Not Detected (NotDetected); Mycoplasma pneumoniae PCR Not Detected (NotDetected); Parainfluenza Virus 1 PCR Not Detected (NotDetected); Parainfluenza Virus 2 PCR Not Detected (NotDetected); Parainfluenza Virus 3 PCR Not Detected (NotDetected); Parainfluenza Virus 4 PCR Not Detected (NotDetected); Respiratory Syncytial VirusPCR Not Detected (NotDetected); Rhinovirus/Enterovirus PCR Not Detected (NotDetected)
[2023-04-21] MEDS: PANTOprazole 40 MG in DEXTROSE 5% MINI-B 100 ML IV SCH ×3 (14:45→23:52)
[2023-04-21 15:02] LABS: Hematocrit (blood only) 21.7 % (37.0-47.0); Hemoglobin 6.8 g/dl (12.0-16.0)
[2023-04-21 16:55] LABS: Appearance Urine Clear (Clear); Bacteria Urine Automated Negative (Negative); Bilirubin Urine Negative (Negative); Blood Urine 1+ (Negative); Color Urine Yellow; Epithelial Cell Urine Auto >30 /lpf (0-5); Glucose Urine UA 3+ (Negative); Ketones Urine Negative (Negative); Leukocyte Esterase Urine Negative (Negative); Nitrite Urine Negative (Negative); Protein Urine Negative (Negative); RBC Urine Automated 0-4 /hpf (0-4); Specific Gravity Urine > 1.045 (1.000-1.030); Urobilinogen Urine Negative (Negative)
[2023-04-21] MEDS: MIRTAZAPINE TAB 15 MG TAB PO SCH (20:31)
[2023-04-21] MEDS: ACETAMINOPHEN 1,000 MG/100 ML VIAL IV PRN (23:33)
[2023-04-22] MEDS: INSULIN ASPART PER UNIT CHARGE SC SCH ×4 (00:06→17:56)
[2023-04-22 00:21] LABS: Hematocrit (blood only) 29.6 % (37.0-47.0); Hemoglobin 9.6 g/dl (12.0-16.0)
[2023-04-22] MEDS: PANTOprazole 40 MG in DEXTROSE 5% MINI-B 100 ML IV SCH ×4 (05:54→18:09)
[2023-04-22] MEDS: LEVOTHYROXINE SODIUM 50 MCG TABLET PO SCH (06:29)
[2023-04-22 07:40] LABS: Calcium 8.1 mg/dl (8.6-10.3); Est GFR (African American) 80.1 ml/min; Est GFR (Non-African American) 69.1 ml/min; Magnesium 1.5 mg/dl (1.7-2.4); Potassium 4.1 mmol/L (3.5-5.1)
[2023-04-22 07:46] LABS: Hematocrit (blood only) 27.5 % (37.0-47.0); Hemoglobin 8.8 g/dl (12.0-16.0); Mean Corpuscular Hemoglobin 27.8 pg (25.0-34.0); Mean Corpuscular Volume 86.8 fL (80.0-100.0); Mean Platelet Volume 9.8 fL (9.4-12.4); Platelet Count 203 K/uL (130-400); RDW Coefficient of Variation 16.6 % (11.5-14.5); RDW Standard Deviation 51.3 fL (36.4-46.3); Red Blood Count 3.17 M/uL (4.20-5.40); White Blood Count 7.51 K/ul (4.8-10.8)
[2023-04-22 07:47] LABS: Basophils # (auto) 0.03 K/uL (0.00-0.20); Basophils % (auto) 0.4 %; Eosinophils # (auto) 0.18 K/uL (0.00-0.50); Eosinophils % (auto) 2.4 %; Immature Granulocytes # (auto) 0.04 K/uL (0.01-0.20); Immature Granulocytes % (auto) 0.5 %; Lymphocytes # (auto) 2.33 K/uL (1.20-3.40); Monocytes # (auto) 0.49 K/uL (0.11-0.59); Monocytes % (auto) 6.5 %; Neutrophils # (auto) 4.44 K/uL (1.40-6.50); Neutrophils % (auto) 59.2 %; Polychromasia 1+
--- NOTE | 2023-04-22 08:04 | Orthopedic Consultation ---
Date of Consultation April 22, 2023 Assessment & Plan (1) Closed T8 spinal fracture: Patient presents with a T8 compression fracture. There is minimal collapse and does not appear to be extension into the middle or posterior elements. I am going to prescribe a TLSO that patient can wear when she is up and walking. Once the TLSO is in place she may ambulate with physical therapy. She may need placement in rehab depending on her progress with therapy. I will review the films with Dr. Cristina tomorrow and be sure that he has no other recommendations. Otherwise we will treat this conservatively. History of Present Illness Attending Physician: Shelton Armstrong MD History of Present Illness Patient was seen bedside in room 229. Patient is a pleasant 82-year-old female who has a history significant for multiple falls and bilateral leg weakness. She had a fall on Sunday resulting in increasing pain in her back itself. She was brought to the emergency room was evaluated and noted to have a T8 compression fracture. She was admitted to the hospital for pain control at this point. She states even prior to her fall she has been using a walker for ambulation. She is not being treated for osteoporosis at this point and has not had a recent workup. She is not having any pain rating down her legs. She denies any other numbness, tingling, or paresthesias. Allergies Allergy/AdvReac Type Severity Reaction Status Date / Time erythromycin base Allergy Unknown gi upset Verified 04/21/23 07:59 Penicillins Allergy Unknown hives, rash Verified 04/21/23 07:59 Sulfa (Sulfonamide AdvReac upset Verified 04/21/23 07:59 Antibiotics) stomach Home Medications Medication Instructions Recorded Confirmed Type aspirin 81 mg chewable tablet 81 mg PO DAILY 12/30/18 04/21/23 History levothyroxine 50 mcg tablet 50 mcg PO DAILY 12/30/18 04/21/23 History losartan 100 mg tablet 100 mg PO DAILY 12/30/18 04/21/23 History pravastatin 40 mg tablet 40 mg PO DAILY 12/30/18 04/21/23 History amlodipine 2.5 mg tablet 2.5 mg PO DAILY 30 days #30 tabs 08/03/22 04/21/23 Rx dulaglutide 1.5 mg/0.5 mL 1.5 mg subcut WK 08/13/22 04/21/23 History subcutaneous pen injector (Trulicity) metoprolol succinate 50 mg 50 mg PO DAILY 08/13/22 04/21/23 History tablet,extended release 24 hr multivitamin 1 tab PO DAILY 10/05/22 04/21/23 History omeprazole 20 mg tablet,delayed 20 mg PO DAILY PRN Acid Reflux 10/05/22 04/21/23 History release metformin 500 mg tablet,extended 1,000 mg PO BID 10/23/22 04/21/23 History release 24 hr fluoride (sodium) 1.1 % dental 1 applic dental DAILY 11/06/22 04/21/23 History cream (SF 5000 Plus) cholecalciferol (vitamin D3) 125 125 mcg PO DAILY 03/06/23 04/21/23 History mcg (5,000 unit) capsule mirtazapine 15 mg tablet 15 mg PO HS 03/06/23 04/21/23 History repaglinide 0.5 mg tablet 0.5 mg PO DAILY 03/06/23 04/21/23 History tamoxifen 20 mg tablet 20 mg PO DAILY 03/06/23 04/21/23 History Patient History Medical History Ductal carcinoma in situ (DCIS) of left breast CLL (chronic lymphocytic leukemia) Hypothyroidism Diabetes mellitus type 2 in nonobese AV heart block High cholesterol Neuropathy History of chicken pox Surgical History H/O right breast biopsy cyst; benign; 15 years ago S/P placement of cardiac pacemaker S/P lumpectomy, left breast S/P left mastectomy History of cryosurgery to cervix d/t cervical erosion S/P oophorectomy right S/P tonsillectomy S/P cholecystectomy S/P wisdom tooth extraction S/P tubal ligation Family History Grandmother (Paternal) Breast cancer Mother CHF (congestive heart failure) Father COPD (chronic obstructive pulmonary disease) Heart disease Emphysema lung Denies family history of Ovarian cancer Prostate cancer Colorectal cancer Social History Smoking Status: Never smoker Second Hand Exposure: No; Do You Dip or Chew Tobacco: No; Tobacco Cessation Education Requested by Patient: No Hx Alcohol Use: No Hx Substance Use: No Preferred Language: Turkmen Communication Ability: Effective Actuarial Intern Required: No Beliefs That Will Affect Care: None Current Living Situation: Snf 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 Her strength is 5 out of 5 to detailed muscle testing both lower extremities. Her sensations intact to light touch proprioception is also intact. She has mild tenderness with logrolling. She is nontender to palpation. Her cardiovascular exam reveals no gross abnormalities. Her abdomen soft and nontender. Calves are supple and nontender. Her visual mcginnis are grossly intact. There is no facial droop. Her speech is reasonable with no slurring of her words. Results & Data Vital Signs (Past 12 Hours) Vital Signs Temp Pulse Pulse Resp BP BP Pulse Ox 04/22/23 07:37 36.4 C L 72 18 121/62 98 04/22/23 04:56 73 04/22/23 03:36 36.4 C L 67 16 142/85 H 99 04/21/23 22:55 36.4 C L 71 20 144/79 H 96 04/21/23 21:00 36.6 C 73 18 115/66 98 O2 Del Method O2 Flow Rate 04/22/23 07:37 Nasal Cannula 2 04/22/23 04:56 04/22/23 03:36 Nasal Cannula 2 04/21/23 22:55 Nasal Cannula 2 04/21/23 21:[address] scan of the abdomen pelvis was reviewed. This does reveal a superior endplate fracture of T8. There is minimal collapse. The fracture does not appear to extend into the middle or posterior columns. There are multilevel degenerative changes. No other fractures or subluxations are noted.
--- NOTE | 2023-04-22 08:33 | Gastrointestinal Consultation ---
Date of Consultation April 22, 2023 Assessment & Plan (1) Anemia: Pleasant lady with one week of melena. She takes ASA and may or may not take ibuprofen. I suspect she has ulcer disease. Will plan EGD for tomorrow. She also has pancreatic duct calculus but this has been present and should be follo wed as an outpatient. History of Present Illness Reason for Consultation: melena Attending Physician: Shelton Armstrong MD History of Present Illness 82 year old female admitted after passing out in bathroom. Admitted with anemia and melena. She admits that for the past week she has had diarrhea and her stools were very black. She tells me she takes a lot of ibuprofen but there is none listed on her records. She does take aspirin. She denies abdominal pain. She has no nausea or vomiting. She does not have much of an appetite. She has never bled before. She has never had an EGD before. Allergies Allergy/AdvReac Type Severity Reaction Status Date / Time erythromycin base Allergy Unknown gi upset Verified 04/21/23 07:59 Penicillins Allergy Unknown hives, rash Verified 04/21/23 07:59 Sulfa (Sulfonamide AdvReac upset Verified 04/21/23 07:59 Antibiotics) stomach Home Medications Medication Instructions Recorded Confirmed Type aspirin 81 mg chewable tablet 81 mg PO DAILY 12/30/18 04/21/23 History levothyroxine 50 mcg tablet 50 mcg PO DAILY 12/30/18 04/21/23 History losartan 100 mg tablet 100 mg PO DAILY 12/30/18 04/21/23 History pravastatin 40 mg tablet 40 mg PO DAILY 12/30/18 04/21/23 History amlodipine 2.5 mg tablet 2.5 mg PO DAILY 30 days #30 tabs 08/03/22 04/21/23 Rx dulaglutide 1.5 mg/0.5 mL 1.5 mg subcut WK 08/13/22 04/21/23 History subcutaneous pen injector (Trulicity) metoprolol succinate 50 mg 50 mg PO DAILY 08/13/22 04/21/23 History tablet,extended release 24 hr multivitamin 1 tab PO DAILY 10/05/22 04/21/23 History omeprazole 20 mg tablet,delayed 20 mg PO DAILY PRN Acid Reflux 10/05/22 04/21/23 History release metformin 500 mg tablet,extended 1,000 mg PO BID 10/23/22 04/21/23 History release 24 hr fluoride (sodium) 1.1 % dental 1 applic dental DAILY 11/06/22 04/21/23 History cream (SF 5000 Plus) cholecalciferol (vitamin D3) 125 125 mcg PO DAILY 03/06/23 04/21/23 History mcg (5,000 unit) capsule mirtazapine 15 mg tablet 15 mg PO HS 03/06/23 04/21/23 History repaglinide 0.5 mg tablet 0.5 mg PO DAILY 03/06/23 04/21/23 History tamoxifen 20 mg tablet 20 mg PO DAILY 03/06/23 04/21/23 History Patient History Medical History Ductal carcinoma in situ (DCIS) of left breast CLL (chronic lymphocytic leukemia) Hypothyroidism Diabetes mellitus type 2 in nonobese AV heart block High cholesterol Neuropathy History of chicken pox Surgical History H/O right breast biopsy cyst; benign; 15 years ago S/P placement of cardiac pacemaker S/P lumpectomy, left breast S/P left mastectomy History of cryosurgery to cervix d/t cervical erosion S/P oophorectomy right S/P tonsillectomy S/P cholecystectomy S/P wisdom tooth extraction S/P tubal ligation Family History Grandmother (Paternal) Breast cancer Mother CHF (congestive heart failure) Father COPD (chronic obstructive pulmonary disease) Heart disease Emphysema lung Denies family history of Ovarian cancer Prostate cancer Colorectal cancer Social History Smoking Status: Never smoker Second Hand Exposure: No; Do You Dip or Chew Tobacco: No; Tobacco Cessation Education Requested by Patient: No Hx Alcohol Use: No Hx Substance Use: No Preferred Language: Bulgarian Communication Ability: Effective Medical Physics Teacher Required: No Beliefs That Will Affect Care: None Current Living Situation: Skilled Nursing 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; 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 Other Information That Helps Us Care for You: No Feels Safe at Home: Yes Safety Concerns: Feels Safe At This Time Assistive Devices: None Review of Systems Review of Systems: All systems reviewed & are unremarkable except as noted in HPI & below Physical Exam Constitutional: WD/WN, vitals as above no acute distress Eyes: PERRL, conjunctivae normal, anicteric sclerae ENMT: external ear and nose normal, oropharynx normal Neck: trachea midline, no thyromegaly Respiratory: normal respiratory effort, lungs clear to auscultation Cardiovascular: RRR, no murmur, no edema Gastrointestinal (Abdomen): Inspection/Auscultation: abdomen normal to inspection Percussion/Palpation: + abdomen tender (midepigastrium) and abdomen soft Musculoskeletal: Extremities: no cyanosis and no clubbing Skin: no rashes, warm and dry Neurologic: PERRL, EOMI, accommodation nl, no face palsy, no dysarthria Psychiatric: Orientation: alert and oriented x 3 Results & Data Vital Signs (Past 12 Hours) Vital Signs Temp Pulse Pulse Resp BP BP Pulse Ox 04/22/23 07:37 36.4 C L 72 18 121/62 98 04/22/23 04:56 73 04/22/23 03:36 36.4 C L 67 16 142/85 H 99 04/21/23 22:55 36.4 C L 71 20 144/79 H 96 04/21/23 21:00 36.6 C 73 18 115/66 98 O2 Del Method O2 Flow Rate 04/22/23 07:37 Nasal Cannula 2 04/22/23 04:56 04/22/23 03:36 Nasal Cannula 2 04/21/23 22:55 Nasal Cannula 2 04/21/23 21:00 2 Laboratory Results 04/22/23 04/22/23 04/21/23 Range/Units 07:08 06:19 23:50 WBC 7.51 (4.8-10.8) K/ul RBC 3.17 L (4.20-5.40) M/uL Hgb 8.8 L (12.0-16.0) g/dl Hct 27.5 L (37.0-47.0) % MCV 86.8 D (80.0-100.0) fL MCH 27.8 (25.0-34.0) pg MCHC 32.0 (32.0-36.0) g/dL RDW Std Deviation 51.3 H (36.4-46.3) fL RDW Coeff of Karrie 16.6 H (11.5-14.5) % Plt Count 203 D (130-400) K/uL MPV 9.8 (9.4-12.4) fL Immature Gran % (Auto) 0.5 % Neut % (Auto) 59.2 % Lymph % (Auto) 31.0 % [place] % (Auto) 6.5 % Eos % (Auto) 2.4 % Baso % (Auto) 0.4 % Neut # (Auto) 4.44 (1.40-6.50) K/uL Lymph # (Auto) 2.33 (1.20-3.40) K/uL [place] # (Auto) 0.49 (0.11-0.59) K/uL Eos # (Auto) 0.18 (0.00-0.50) K/uL Baso # (Auto) 0.03 (0.00-0.20) K/uL Immature Gran # (Auto) 0.04 (0.01-0.20) K/uL Polychromasia 1+ Sodium 137 (136-145) mmol/L Potassium 4.1 D (3.5-5.1) mmol/L Chloride 107 (98-107) mmol/L Carbon Dioxide 28 (21-32) mmol/L Anion Gap 2 L (3-11) BUN 20 (6-23) mg/dl Creatinine 0.80 (0.6-1.2) mg/dl Est Cr Clr Drug Dosing 45.0 ml/min Est GFR ( Amer) 80.1 ml/min Est GFR (Non-Af Amer) 69.1 ml/min BUN/Creatinine Ratio 25.0 H (10-20) Glucose 111 H (70-99(Fasting)) mg/dl POC Glucose 101 H 125 H (70-99) mg/dl Calcium 8.1 L (8.6-10.3) mg/dl Magnesium 1.5 L (1.7-2.4) mg/dl Iron (35-150) mcg/dl TIBC (250-450) mcg/dl Unsaturated IBC (155-355) mcg/dl Transferrin % Sat (15-50) % Ferritin (8-388) ng/ml Urine Color Urine Appearance (Clear) Urine pH (4.5-7.5) Ur Specific [place] (1.000-1.030) Urine Protein (Negative) Urine Glucose (UA) (Negative) Urine Ketones (Negative) Urine Blood (Negative) Urine Nitrite (Negative) Urine Bilirubin (Negative) Urine Urobilinogen (Negative) Ur Leukocyte Esterase (Negative) Urine WBC (Auto) (0-5) /hpf Urine RBC (Auto) (0-4) /hpf U Hyaline Cast (Auto) (0-5) /lpf U Epithel Cells (Auto) (0-5) /lpf Urine Bacteria (Auto) (Negative) Stl C. diff Tox B Gene (Neg) Adenovirus (PCR) (NotDetected) B. pertussis DNA (PCR) (NotDetected) B.parapertussis DNA PCR (NotDetected) C. pneumoniae DNA (PCR) (NotDetected) Coronavirus OC43 (PCR) (NotDetected) Coronavirus HKU1 (PCR) (NotDetected) Coronavirus 229E (PCR) (NotDetected) SARS-CoV-2 (PCR) (NotDetected) Coronavirus NL63 (PCR) (NotDetected) Human Metapneumovir PCR (NotDetected) Influenza Type A (PCR) (NotDetected) Influenza Type B (PCR) (NotDetected) M. pneumoniae (PCR) (NotDetected) Parainfluenza 1 (PCR) (NotDetected) Parainfluenza 2 (PCR) (NotDetected) Parainfluenza 3 (PCR) (NotDetected) Parainfluenza 4 (PCR) (NotDetected) RSV (PCR) (NotDetected) Entero/Rhino (PCR) (NotDetected) Blood Type Antibody Screen Crossmatch 04/21/23 04/21/23 04/21/23 Range/Units 22:50 18:22 18:03 WBC (4.8-10.8) K/ul RBC (4.20-5.40) M/uL Hgb 9.6 L (12.0-16.0) g/dl Hct 29.6 L (37.0-47.0) % MCV (80.0-100.0) fL MCH (25.0-34.0) pg MCHC (32.0-36.0) g/dL RDW Std Deviation (36.4-46.3) fL RDW Coeff of Karrie (11.5-14.5) % Plt Count (130-400) K/uL MPV (9.4-12.4) fL Immature Gran % (Auto) % Neut % (Auto) % Lymph % (Auto) % [place] % (Auto) % Eos % (Auto) % Baso % (Auto) % Neut # (Auto) (1.40-6.50) K/uL Lymph # (Auto) (1.20-3.40) K/uL [place] # (Auto) (0.11-0.59) K/uL Eos # (Auto) (0.00-0.50) K/uL Baso # (Auto) (0.00-0.20) K/uL Immature Gran # (Auto) (0.01-0.20) K/uL Polychromasia Sodium (136-145) mmol/L Potassium (3.5-5.1) mmol/L Chloride (98-107) mmol/L Carbon Dioxide (21-32) mmol/L Anion Gap (3-11) BUN (6-23) mg/dl Creatinine (0.6-1.2) mg/dl Est Cr Clr Drug Dosing ml/min Est GFR ( Amer) ml/min Est GFR (Non-Af Amer) ml/min BUN/Creatinine Ratio (10-20) Glucose (70-99(Fasting)) mg/dl POC Glucose 144 H 168 H (70-99) mg/dl Calcium (8.6-10.3) mg/dl Magnesium (1.7-2.4) mg/dl Iron (35-150) mcg/dl TIBC (250-450) mcg/dl Unsaturated IBC (155-355) mcg/dl Transferrin % Sat (15-50) % Ferritin (8-388) ng/ml Urine Color Urine Appearance (Clear) Urine pH (4.5-7.5) Ur Specific [place] (1.000-1.030) Urine Protein (Negative) Urine Glucose (UA) (Negative) Urine Ketones (Negative) Urine Blood (Negative) Urine Nitrite (Negative) Urine Bilirubin (Negative) Urine Urobilinogen (Negative) Ur Leukocyte Esterase (Negative) Urine WBC (Auto) (0-5) /hpf Urine RBC (Auto) (0-4) /hpf U Hyaline Cast (Auto) (0-5) /lpf U Epithel Cells (Auto) (0-5) /lpf Urine Bacteria (Auto) (Negative) Stl C. diff Tox B Gene (Neg) Adenovirus (PCR) (NotDetected) B. pertussis DNA (PCR) (NotDetected) B.parapertussis DNA PCR (NotDetected) C. pneumoniae DNA (PCR) (NotDetected) Coronavirus OC43 (PCR) (NotDetected) Coronavirus HKU1 (PCR) (NotDetected) Coronavirus 229E (PCR) (NotDetected) SARS-CoV-2 (PCR) (NotDetected) Coronavirus NL63 (PCR) (NotDetected) Human Metapneumovir PCR (NotDetected) Influenza Type A (PCR) (NotDetected) Influenza Type B (PCR) (NotDetected) M. pneumoniae (PCR) (NotDetected) Parainfluenza 1 (PCR) (NotDetected) Parainfluenza 2 (PCR) (NotDetected) Parainfluenza 3 (PCR) (NotDetected) Parainfluenza 4 (PCR) (NotDetected) RSV (PCR) (NotDetected) Entero/Rhino (PCR) (NotDetected) Blood Type Antibody Screen Crossmatch 04/21/23 04/21/23 04/21/23 Range/Units 17:30 16:00 14:26 WBC (4.8-10.8) K/ul RBC (4.20-5.40) M/uL Hgb 6.8 L* (12.0-16.0) g/dl Hct 21.7 L (37.0-47.0) % MCV (80.0-100.0) fL MCH (25.0-34.0) pg MCHC (32.0-36.0) g/dL RDW Std Deviation (36.4-46.3) fL RDW Coeff of Karrie (11.5-14.5) % Plt Count (130-400) K/uL MPV (9.4-12.4) fL Immature Gran % (Auto) % Neut % (Auto) % Lymph % (Auto) % [place] % (Auto) % Eos % (Auto) % Baso % (Auto) % Neut # (Auto) (1.40-6.50) K/uL Lymph # (Auto) (1.20-3.40) K/uL [place] # (Auto) (0.11-0.59) K/uL Eos # (Auto) (0.00-0.50) K/uL Baso # (Auto) (0.00-0.20) K/uL Immature Gran # (Auto) (0.01-0.20) K/uL Polychromasia Sodium (136-145) mmol/L Potassium (3.5-5.1) mmol/L Chloride (98-107) mmol/L Carbon Dioxide (21-32) mmol/L Anion Gap (3-11) BUN (6-23) mg/dl Creatinine (0.6-1.2) mg/dl Est Cr Clr Drug Dosing ml/min Est GFR ( Amer) ml/min Est GFR (Non-Af Amer) ml/min BUN/Creatinine Ratio (10-20) Glucose (70-99(Fasting)) mg/dl POC Glucose (70-99) mg/dl Calcium (8.6-10.3) mg/dl Magnesium (1.7-2.4) mg/dl Iron (35-150) mcg/dl TIBC (250-450) mcg/dl Unsaturated IBC (155-355) mcg/dl Transferrin % Sat (15-50) % Ferritin (8-388) ng/ml Urine Color Yellow Urine Appearance Clear (Clear) Urine pH 5.0 (4.5-7.5) Ur Specific [place] > 1.045 H (1.000-1.030) Urine Protein Negative (Negative) Urine Glucose (UA) 3+ H (Negative) Urine Ketones Negative (Negative) Urine Blood 1+ H (Negative) Urine Nitrite Negative (Negative) Urine Bilirubin Negative (Negative) Urine Urobilinogen Negative (Negative) Ur Leukocyte Esterase Negative (Negative) Urine WBC (Auto) 1-5 (0-5) /hpf Urine RBC (Auto) 0-4 (0-4) /hpf U Hyaline Cast (Auto) 1-5 (0-5) /lpf U Epithel Cells (Auto) >30 H (0-5) /lpf Urine Bacteria (Auto) Negative (Negative) Stl C. diff Tox B Gene Negative Cdiff Gene (Neg) Adenovirus (PCR) (NotDetected) B. pertussis DNA (PCR) (NotDetected) B.parapertussis DNA PCR (NotDetected) C. pneumoniae DNA (PCR) (NotDetected) Coronavirus OC43 (PCR) (NotDetected) Coronavirus HKU1 (PCR) (NotDetected) Coronavirus 229E (PCR) (NotDetected) SARS-CoV-2 (PCR) (NotDetected) Coronavirus NL63 (PCR) (NotDetected) Human Metapneumovir PCR (NotDetected) Influenza Type A (PCR) (NotDetected) Influenza Type B (PCR) (NotDetected) M. pneumoniae (PCR) (NotDetected) Parainfluenza 1 (PCR) (NotDetected) Parainfluenza 2 (PCR) (NotDetected) Parainfluenza 3 (PCR) (NotDetected) Parainfluenza 4 (PCR) (NotDetected) RSV (PCR) (NotDetected) Entero/Rhino (PCR) (NotDetected) Blood Type Antibody Screen Crossmatch 04/21/23 04/21/23 04/21/23 Range/Units 13:14 12:56 06:25 WBC (4.8-10.8) K/ul RBC (4.20-5.40) M/uL Hgb (12.0-16.0) g/dl Hct (37.0-47.0) % MCV (80.0-100.0) fL MCH (25.0-34.0) pg MCHC (32.0-36.0) g/dL RDW Std Deviation (36.4-46.3) fL RDW Coeff of Karrie (11.5-14.5) % Plt Count (130-400) K/uL MPV (9.4-12.4) fL Immature Gran % (Auto) % Neut % (Auto) % Lymph % (Auto) % [place] % (Auto) % Eos % (Auto) % Baso % (Auto) % Neut # (Auto) (1.40-6.50) K/uL Lymph # (Auto) (1.20-3.40) K/uL [place] # (Auto) (0.11-0.59) K/uL Eos # (Auto) (0.00-0.50) K/uL Baso # (Auto) (0.00-0.20) K/uL Immature Gran # (Auto) (0.01-0.20) K/uL Polychromasia Sodium (136-145) mmol/L Potassium (3.5-5.1) mmol/L Chloride (98-107) mmol/L Carbon Dioxide (21-32) mmol/L Anion Gap (3-11) BUN (6-23) mg/dl Creatinine (0.6-1.2) mg/dl Est Cr Clr Drug Dosing ml/min Est GFR ( Amer) ml/min Est GFR (Non-Af Amer) ml/min BUN/Creatinine Ratio (10-20) Glucose (70-99(Fasting)) mg/dl POC Glucose 236 H (70-99) mg/dl Calcium (8.6-10.3) mg/dl Magnesium (1.7-2.4) mg/dl Iron (35-150) mcg/dl TIBC (250-450) mcg/dl Unsaturated IBC (155-355) mcg/dl Transferrin % Sat (15-50) % Ferritin (8-388) ng/ml Urine Color Urine Appearance (Clear) Urine pH (4.5-7.5) Ur Specific [place] (1.000-1.030) Urine Protein (Negative) Urine Glucose (UA) (Negative) Urine Ketones (Negative) Urine Blood (Negative) Urine Nitrite (Negative) Urine Bilirubin (Negative) Urine Urobilinogen (Negative) Ur Leukocyte Esterase (Negative) Urine WBC (Auto) (0-5) /hpf Urine RBC (Auto) (0-4) /hpf U Hyaline Cast (Auto) (0-5) /lpf U Epithel Cells (Auto) (0-5) /lpf Urine Bacteria (Auto) (Negative) Stl C. diff Tox B Gene (Neg) Adenovirus (PCR) Not Detected (NotDetected) B. pertussis DNA (PCR) Not Detected (NotDetected) B.parapertussis DNA PCR Not Detected (NotDetected) C. pneumoniae DNA (PCR) Not Detected (NotDetected) Coronavirus OC43 (PCR) Not Detected (NotDetected) Coronavirus HKU1 (PCR) Not Detected (NotDetected) Coronavirus 229E (PCR) Not Detected (NotDetected) SARS-CoV-2 (PCR) Not Detected (NotDetected) Coronavirus NL63 (PCR) Not Detected (NotDetected) Human Metapneumovir PCR Not Detected (NotDetected) Influenza Type A (PCR) Not Detected (NotDetected) Influenza Type B (PCR) Not Detected (NotDetected) M. pneumoniae (PCR) Not Detected (NotDetected) Parainfluenza 1 (PCR) Not Detected (NotDetected) Parainfluenza 2 (PCR) Not Detected (NotDetected) Parainfluenza 3 (PCR) Not Detected (NotDetected) Parainfluenza 4 (PCR) Not Detected (NotDetected) RSV (PCR) Not Detected (NotDetected) Entero/Rhino (PCR) Not Detected (NotDetected) Blood Type O Positive Antibody Screen NEGATIVE Crossmatch See Detail 04/21/23 Range/Units 05:45 WBC (4.8-10.8) K/ul RBC (4.20-5.40) M/uL Hgb (12.0-16.0) g/dl Hct (37.0-47.0) % MCV (80.0-100.0) fL MCH (25.0-34.0) pg MCHC (32.0-36.0) g/dL RDW Std Deviation (36.4-46.3) fL RDW Coeff of Karrie (11.5-14.5) % Plt Count (130-400) K/uL MPV (9.4-12.4) fL Immature Gran % (Auto) % Neut % (Auto) % Lymph % (Auto) % [place] % (Auto) % Eos % (Auto) % Baso % (Auto) % Neut # (Auto) (1.40-6.50) K/uL Lymph # (Auto) (1.20-3.40) K/uL [place] # (Auto) (0.11-0.59) K/uL Eos # (Auto) (0.00-0.50) K/uL Baso # (Auto) (0.00-0.20) K/uL Immature Gran # (Auto) (0.01-0.20) K/uL Polychromasia Sodium (136-145) mmol/L Potassium (3.5-5.1) mmol/L Chloride (98-107) mmol/L Carbon Dioxide (21-32) mmol/L Anion Gap (3-11) BUN (6-23) mg/dl Creatinine (0.6-1.2) mg/dl Est Cr Clr Drug Dosing ml/min Est GFR ( Amer) ml/min Est GFR (Non-Af Amer) ml/min BUN/Creatinine Ratio (10-20) Glucose (70-99(Fasting)) mg/dl POC Glucose (70-99) mg/dl Calcium (8.6-10.3) mg/dl Magnesium (1.7-2.4) mg/dl Iron 49 (35-150) mcg/dl TIBC 223 L (250-450) mcg/dl Unsaturated IBC 174 (155-355) mcg/dl Transferrin % Sat 22 (15-50) % Ferritin 89.9 (8-388) ng/ml Urine Color Urine Appearance (Clear) Urine pH (4.5-7.5) Ur Specific [place] (1.000-1.030) Urine Protein (Negative) Urine Glucose (UA) (Negative) Urine Ketones (Negative) Urine Blood (Negative) Urine Nitrite (Negative) Urine Bilirubin (Negative) Urine Urobilinogen (Negative) Ur Leukocyte Esterase (Negative) Urine WBC (Auto) (0-5) /hpf Urine RBC (Auto) (0-4) /hpf U Hyaline Cast (Auto) (0-5) /lpf U Epithel Cells (Auto) (0-5) /lpf Urine Bacteria (Auto) (Negative) Stl C. diff Tox B Gene (Neg) Adenovirus (PCR) (NotDetected) B. pertussis DNA (PCR) (NotDetected) B.parapertussis DNA PCR (NotDetected) C. pneumoniae DNA (PCR) (NotDetected) Coronavirus OC43 (PCR) (NotDetected) Coronavirus HKU1 (PCR) (NotDetected) Coronavirus 229E (PCR) (NotDetected) SARS-CoV-2 (PCR) (NotDetected) Coronavirus NL63 (PCR) (NotDetected) Human Metapneumovir PCR (NotDetected) Influenza Type A (PCR) (NotDetected) Influenza Type B (PCR) (NotDetected) M. pneumoniae (PCR) (NotDetected) Parainfluenza 1 (PCR) (NotDetected) Parainfluenza 2 (PCR) (NotDetected) Parainfluenza 3 (PCR) (NotDetected) Parainfluenza 4 (PCR) (NotDetected) RSV (PCR) (NotDetected) Entero/Rhino (PCR) (NotDetected) Blood Type Antibody Screen Crossmatch Diagnostic Findings Cervical Spine CT 04/21/23 05:47 CT SCAN OF THE CERVICAL SPINE CLINICAL HISTORY: Fall. COMPARISON STUDY: CT angiogram of the neck dated 08/23/2022. TECHNIQUE: CT scan of the cervical spine is performed from the skull base to the upper thoracic spine. Images are reviewed in the axial, sagittal, and coronal planes. IV contrast was not administered for this examination. A dose lowering technique was utilized adhering to the principles of ALARA. FINDINGS: Skeletal structures: The skeletal structures are osteopenic. There is no evidence of fracture or subluxation involving the cervical spine. Vertebral body height and alignment are maintained. Small anterior osteophytes are seen throughout. The odontoid process and lateral masses are intact. The atlantoaxial articulation is preserved noting mild productive degenerative change. The spinous processes appear intact. There is mild multilevel facet arthropathy. Intervertebral discs: There is minimal degenerative disc space narrowing. Central canal: Grossly patent. Soft tissues: The prevertebral and paraspinous soft tissues are within normal limits. There is atherosclerotic calcification of the carotid bulbs. Calvarium: The visualized calvarium at the skull base appears intact. Brain parenchyma: Partially visualized brain parenchyma at the skull base is within normal limits. Sinuses and mastoids: Secretions are noted in the right sphenoid sinus. The mastoid air cells are well pneumatized. Lung apices: Clear as visualized. IMPRESSION: There is no evidence of fracture or subluxation involving the cervical spine. ACT 112: Negative or not required by law. Electronically signed by: Gerhard Orta M.D. 04/21/2023 6:38 AM Chest X-Ray 04/21/23 05:47 SINGLE VIEW CHEST CLINICAL HISTORY: Generalized weakness. Fall. FINDINGS: An AP, portable, upright chest radiograph is compared to study dated 04/09/2023 and correlated with chest CT dated 04/10/2023 The examination is degraded by portable technique and patient rotation. . A 2-lead cardiac pacemaker is unchanged in position. The heart is enlarged noting atherosclerotic calcification of the thoracic aorta. The pulmonary vasculature is noncongested. There is bibasilar scarring/atelectasis. No airspace consolidation or large pleural effusion is identified. There are scattered foci of parenchymal scarring. No pneumothorax is seen. The skeletal structures are osteopenic. The bony thorax is grossly intact. Degenerative change is noted in the shoulders and spine. Cholecystectomy clips are noted in the right upper quadrant. IMPRESSION: 1. Cardiomegaly and cardiac pacemaker without radiographic evidence of congest mariel failure. 2. No airspace consolidation or large pleural effusion is identified. Right upper lobe consolidation seen on 04/09/2023 has almost completely resolved. ACT 112: Negative or not required by law. Electronically signed by: Gerhard Orta M.D. 04/21/2023 7:[address] 04/21/23 05:47 CT SCAN OF THE BRAIN WITHOUT IV CONTRAST CLINICAL HISTORY: Fall. Head injury. COMPARISON STUDY: CT of the brain dated 04/09/2023. TECHNIQUE: Unenhanced axial CT scan of the brain is performed from the vertex to the skull base. A dose lowering technique was utilized adhering to the principles of ALARA. FINDINGS: Brain parenchyma: There is age-related involutional change noting mild subcortical and periventricular microangiopathic disease. There is no hemorrhage, mass effect, or evidence of acute territorial ischemia by CT criteria. Bell-white matter differentiation is preserved. No extra-axial fluid collection is seen. Ventricles, sulci, cisterns: Prominent secondary to involutional change. Intracranial vasculature: There is atherosclerotic calcification of the cavernous carotid and vertebral arteries. Calvarium: The skeletal structures are osteopenic. No depressed calvarial fracture is identified. Soft tissues: There is a small posterior scalp contusion. Sinuses and mastoids: The paranasal sinuses are clear. The mastoid air cells are well pneumatized. Orbits: The bony orbits are grossly intact. There are bilateral ocular lens implants. IMPRESSION: There is no hemorrhage, mass effect, or evidence of acute territorial ischemia by CT criteria. ACT 112: Negative or not required by law. Electronically signed by: Gerhard Orta M.D. 04/21/2023 6:33 AM Abdomen/Pelvis CT 04/21/23 05:55 CT SCAN OF THE ABDOMEN AND PELVIS WITH IV CONTRAST CLINICAL HISTORY: Nausea and vomiting. GI bleeding. Fall. COMPARISON STUDY: Radiation treatment planning CT dated 10/10/2022. TECHNIQUE: Following the IV administration of 77 cc of Optiray 320, CT scan of the abdomen and pelvis is performed from the lung bases to the proximal femora. Images are reviewed in the axial, sagittal, and coronal planes. IV contrast was administered without complication. A dose lowering technique was utilized adhering to the principles of ALARA. CT DOSE: 2250.59 mGy.cm FINDINGS: Lung bases: The heart is mildly enlarged and without pericardial effusion. Pacemaker leads are in place. The coronary arteries are densely calcified. Ectasia of the ascending thoracic aorta similar to previous. This measures up to 3.8 cm. There are trace pleural effusions with dependent atelectasis. Liver: The contrast-enhanced liver is enlarged, measuring 18 cm in length. The liver is cirrhotic in morphology and heterogeneous in attenuation. There is hypertrophy of the left lobe and caudate, as well as nodularity of the hepatic surface contour. Continuation is diminished indicating steatosis. Micronodularit y is seen throughout the liver. There is no intrahepatic biliary ductal dilatation. The hepatic veins and portal veins are patent. Gallbladder: Surgically absent and clips in the gallbladder fossa. Spleen: Normal in size and attenuation, measuring 9.9 cm in length. Pancreas: The pancreatic body and tail are atrophic. The duct is dilated, measuring up to 6 mm in diameter, and there are large intraductal calculi in the region of the pancreatic neck seen on image #[id number]. A 1.5 cm ovoid simple cystic lesion in the pancreatic neck is seen on image #94. Additional subcentimeter pancreatic cysts are noted. Adrenal glands: Unremarkable. Kidneys: The contrast enhanced kidneys demonstrate mild cortical atrophy and are without hydronephrosis. The kidneys enhance symmetrically. Abdominal vasculature: The abdominal aorta is normal in course and caliber noting moderate atherosclerotic calcification. Bowel: There is mild wall thickening seen at the gastroduodenal junction with surrounding infiltration. There is no bowel obstruction. The appendix is well- visualized and normal. Peritoneum: There is no intraperitoneal free air or abdominal ascites. Lymphadenopathy: Prominent lymph nodes in the livan hepatis are likely related to chronic liver disease. Pelvic viscera: The bladder is normal as visualized. The uterus is heterogeneous, and the endometrium appears thickened and irregular. This measures up to 13 mm. No adnexal lesion is seen. Skeletal structures: The skeletal structures are heterogeneously osteopenic. There is an acute fracture through the anterior osteophytes and superior endplate of T8, best seen on the sagittal reformatted images. This does not reach the posterior cortex or involve the posterior elements. There is no significant loss of height or retropulsion of fragments. Mild paravertebral edema is noted. The lumbosacral spine, bony pelvis, and proximal femora appear intact. No lytic or blastic lesions are seen. IMPRESSION: 1. Acute fracture through the anterior osteophytes and superior endplate of T8. This does not involve the posterior elements, and there is no significant loss of height or retropulsion of fragments. The stability of this fracture is indeterminate. 2. No additional acute fracture is seen. 3. There is no evidence of solid organ injury in the abdomen or pelvis. 4. The liver is enlarged, steatotic, and cirrhotic in morphology. Micronodular throughout the liver may be regenerative. 5. There is mild wall thickening suggested at the gastroduodenal junction with surrounding infiltration. This could potentially be related to gastritis/duodenitis or possibly ulcer disease. If warranted this could be further assessed with endoscopy. 6. There are large calculi within the pancreatic duct in the region of the pancreatic neck. The distal pancreas is severely atrophic with ductal dilatation, and these findings are similar to the 10/10/[address] This is likely related to the presence of the ductal calculi. There is no CT evidence of underlying mass lesion. Nonemergent follow-up with GI is recommended. 7. The uterus is heterogeneous and the endometrium is thickened and irregular. This is not well assessed by CT. Nonemergent follow-up with gynecology and pelvic ultrasound is recommended for further assessment and to exclude underlying endometrial lesion. 8. Trace pleural effusions. 9. Simple pancreatic cystic lesions measure up to 1.5 cm. 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 10. Additional findings as above. ACT 112: Negative or not required by law. Electronically signed by: Gerhard Orta M.D. 04/21/2023 7:04 AM
[2023-04-22] MEDS: METOPROLOL SUCC 50MG EXT REL TAB PO SCH (09:30)
[2023-04-22] MEDS: LIDOCAINE 5% 1 PATCH TD SCH (09:30)
[2023-04-22] MEDS: PRAVASTATIN SOD 40 MG TAB PO SCH (09:30)
[2023-04-22] MEDS: oxyCODONE HCL IR 5 MG TAB (IMMEDIATE RELEASE) PO PRN (09:37)
[2023-04-22] MEDS: ERYTHROMYCIN OP OINT 5 MG/GM 3.5 GM TUBE OP SCH ×4 (10:00→21:44)
[2023-04-22] MEDS: MAGNESIUM SULFATE / D5W 1 GM/100 ML BAG IV SCH ×2 (10:21→12:15)
[2023-04-22] MEDS: LACTATED RINGER'S 1,000 ML IV SCH (10:21)
[2023-04-22] MEDS: SODIUM CHLORIDE 0.9% 1,000 ML IV SCH (10:25)
[2023-04-22] MEDS: TAMOXIFEN CITRATE 10 MG TABLET PO SCH (11:17)
[2023-04-22 14:58] LABS: Hematocrit (blood only) 27.5 % (37.0-47.0); Hemoglobin 8.9 g/dl (12.0-16.0)
--- NOTE | 2023-04-22 16:03 | Hospitalist Progress Note ---
Date of Service April 22, 2023 Assessment & Plan (1) Acute upper GI bleed: Plan: Melena Acute Blood Loss Anemia Diarrhea likely due to above INR: Normal Hb dropped to 6.8 on presentation --CT abd suggestive of gastritis/duodenitis/ulcer disease --S/P 2 units PRBCs --Stool for C diff :Negative Hold Aspirin Continue Protonix drip Monitor H&H and transfuse PRBCs as needed Avoid anticoagulants, NASIDs Appreciate GI input Clear liquid diet today N.p.o. after midnight for endoscopy tomorrow Acute T8 Fracture Recurrent Falls Ambulatory dysfunction--has been using walker at baseline -CT:Acute fracture through the anterior osteophytes and superior endplate of T8. This does not involve the posterior elements, and there is no significant loss of height or retropulsion of fragments. The stability of this fracture is indeterminate. Fall precautions PT OT Appreciate Orthopedics Input: Recommends TLSO brace with activity. Pain control May need rehab placement Leukocytosis No clear signs of infection currently Stool negative for c diff Urinalysis Not suggestive of UTI No indication for antibiotics currently Hypomagnesemia Replete electrolytes as needed Hyperkalemia Received calcium gluconate Monitor BMP Hypoxia Recently treated for Pneumonia --CXR:Cardiomegaly and cardiac pacemaker without radiographic evidence of congestive failure. No airspace consolidation or large pleural effusion is chris ntified. Right upper lobe consolidation seen on 04/09/2023 has almost completely resolved. Supplemental oxygen as needed Denies any respiratory symptoms currently Abnormal CT ABD/Pelvis: Hepatomegaly with cirrhotic morphology Pancreatic duct calculus with severely atrophic distal pancreas--similar findings of prior CT per radiology Suspected endometrial lesion--- needs follow-up with THEATER MANAGER as outpatient Simple pancreatic cystic lesions suggestive of IPMNs Updated patient and patient's family regarding abnormal CT. 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 CLL DVT Px: SCDs Re: GI bleed Code Status Full Code Admission and Anticipated Discharge Date Admission Date: April 21, 2023 Subjective Patient is seen and examined at bedside States having back pain Feels sleepy due to pain medications Intermittent melena per patient Denies any nausea, vomiting, abdominal pain, chest pain, dyspnea Discussed with patient's family at bedside Review of Systems Review of Systems: All systems reviewed & are unremarkable except as noted in Subjective Physical Exam Physical Exam: Physical Exam: Vitals signs as noted above General Appearance:Moderately built and nourished, no apparent distress Head: normocephalic, Atraumatic Eyes: normal inspection, EOMI Neck: supple, Trachea midline Respiratory/Chest: Normal breath sounds, CTA, No accessory muscle use Cardiovascular: S1, S2, + murmur Abdomen/GI:Soft, Non tender, Bowel sounds present Back+ Tender mid thoracic Extremities/Musculoskeletal:normal inspection, no edema Neurologic/Psych:AAOX2, grossly no focal neurological deficits Skin: normal color, warm Results & Data Results & Data Vital Signs (Past 12 Hours) Vital Signs Temp Pulse Pulse Resp BP Pulse Ox O2 Del Method 04/22/23 11:21 36.4 C L 67 18 129/60 98 Nasal Cannula 04/22/23 08:00 66 04/22/23 07:37 36.4 C L 72 18 121/62 98 Nasal Cannula 04/22/23 04:56 73 O2 Flow Rate 04/22/23 11:21 2 04/22/23 08:00 04/22/23 07:37 2 04/22/23 04:56 Laboratory Results Short CBC 04/21/23 04/22/23 04/22/23 Range/Units 22:50 07:08 14:21 WBC 7.51 (4.8-10.8) K/ul Hgb 9.6 L 8.8 L 8.9 L (12.0-16.0) g/dl Hct 29.6 L 27.5 L 27.5 L (37.0-47.0) % Plt Count 203 D (130-400) K/uL BMP 04/22/23 07:08 Sodium 137 Potassium 4.1 D Chloride 107 Carbon Dioxide 28 BUN 20 Creatinine 0.80 Glucose 111 H Calcium 8.1 L Urine 04/21/23 Range/Units 16:00 Urine Color Yellow Urine Appearance Clear (Clear) Urine pH 5.0 (4.5-7.5) Ur Specific [place] > 1.045 H (1.000-1.030) Urine Protein Negative (Negative) Urine Glucose (UA) 3+ H (Negative)
[2023-04-22] MEDS ORDERED: LANTUS PER UNIT CHARGE SC SCH (16:30)
[2023-04-22] MEDS: MIRTAZAPINE TAB 15 MG TAB PO SCH (19:58)
[2023-04-23] MEDS: INSULIN ASPART PER UNIT CHARGE SC SCH ×5 (00:11→23:20)
[2023-04-23] MEDS: PANTOprazole 40 MG in DEXTROSE 5% MINI-B 100 ML IV SCH ×5 (00:33→20:20)
[2023-04-23] MEDS: LACTATED RINGER'S 1,000 ML IV SCH (00:34)
[2023-04-23] MEDS: ERYTHROMYCIN OP OINT 5 MG/GM 3.5 GM TUBE OP SCH ×6 (02:40→21:47)
--- NOTE | 2023-04-23 05:51 | Electrocardiogram Report ---
Test Reason : Blood Pressure : / mmHG Vent. Rate : 106 BPM Atrial Rate : 106 BPM P-R Int : 118 ms QRS Dur : 104 ms QT Int : 380 ms P-R-T Axes : 042 -33 069 degrees QTc Int : 504 ms Atrial-sensed ventricular-paced rhythm Abnormal ECG When compared with ECG of 10-APR-2023 06:49, Vent. rate has increased BY 38 BPM Confirmed by Oswaldo Muniz ([id number]) on 04/23/2023 5:51:05 AM Referred By: Confirmed By:Oswaldo Muniz
[2023-04-23 07:45] LABS: Hematocrit (blood only) 26.3 % (37.0-47.0); Hemoglobin 8.7 g/dl (12.0-16.0); Mean Corpuscular Hemoglobin 28.2 pg (25.0-34.0); Mean Corpuscular Hgb Conc 33.1 g/dL (32.0-36.0); Mean Corpuscular Volume 85.1 fL (80.0-100.0); Mean Platelet Volume 10.2 fL (9.4-12.4); Platelet Count 203 K/uL (130-400); RDW Coefficient of Variation 16.1 % (11.5-14.5); RDW Standard Deviation 48.1 fL (36.4-46.3); Red Blood Count 3.09 M/uL (4.20-5.40); White Blood Count 6.36 K/ul (4.8-10.8)
[2023-04-23 08:07] LABS: BUN Creatinine Ratio 14.5 (10-20); Calcium 7.7 mg/dl (8.6-10.3); Est GFR (African American) 94.6 ml/min; Est GFR (Non-African American) 81.6 ml/min; Magnesium 1.5 mg/dl (1.7-2.4); Potassium 3.8 mmol/L (3.5-5.1)
--- NOTE | 2023-04-23 08:23 | Anesthesiology Consultation ---
Date of Service April 23, 2023 Assessment & Plan Chart Review Chart Review: Acceptable Risk for Surgery, Patient NOT seen in Pre Admission Testing and data entry assistant initiated Consults Requested none ASA ASA3 Proposed Anesthesia Anesthesia Type: MAC Risk / Benefits Reviewed With: PT / POA / Parent / Guardian, Accepts Plan and Informed Consent Obtained History Surgery Operation Date: 04/23/23 17:30 Proposed Procedures p Esophagogastroduodenoscopy Dr Wetzel - Sneha Wetzel, DO Height/Weight Height: 5 ft Weight: 60.5 kg Allergies Allergy/AdvReac Type Severity Reaction Status Date / Time erythromycin base Allergy Unknown gi upset Verified 04/21/23 07:59 Penicillins Allergy Unknown hives, rash Verified 04/21/23 07:59 Sulfa (Sulfonamide AdvReac upset Verified 04/21/23 07:59 Antibiotics) stomach Medications Home Medications Medication Instructions Recorded Confirmed Last Taken aspirin 81 mg chewable tablet 81 mg PO DAILY 12/30/18 04/21/23 04/08/23 levothyroxine 50 mcg tablet 50 mcg PO DAILY 12/30/18 04/21/23 04/08/23 losartan 100 mg tablet 100 mg PO DAILY 12/30/18 04/21/23 04/08/23 pravastatin 40 mg tablet 40 mg PO DAILY 12/30/18 04/21/23 04/08/23 amlodipine 2.5 mg tablet 2.5 mg PO DAILY 30 days #30 tabs 08/03/22 04/21/23 04/08/23 dulaglutide 1.5 mg/0.5 mL 1.5 mg subcut WK 08/13/22 04/21/23 04/02/23 subcutaneous pen injector ([facility]) metoprolol succinate 50 mg 50 mg PO DAILY 08/13/22 04/21/23 04/08/23 tablet,extended release 24 hr multivitamin 1 tab PO DAILY 10/05/22 04/21/23 04/08/23 omeprazole 20 mg tablet,delayed 20 mg PO DAILY PRN Acid Reflux 10/05/22 04/21/23 04/08/23 release metformin 500 mg tablet,extended 1,000 mg PO BID 10/23/22 04/21/23 04/08/23 release 24 hr fluoride (sodium) 1.1 % dental 1 applic dental DAILY 11/06/22 04/21/23 04/08/23 cream (SF 5000 Plus) cholecalciferol (vitamin D3) 125 125 mcg PO DAILY 03/06/23 04/21/23 04/08/23 mcg (5,000 unit) capsule mirtazapine 15 mg tablet 15 mg PO HS 03/06/23 04/21/23 04/08/23 repaglinide 0.5 mg tablet 0.5 mg PO DAILY 03/06/23 04/21/23 04/08/23 tamoxifen 20 mg tablet 20 mg PO DAILY 03/06/23 04/21/23 04/08/23 Active Medications Generic Name Dose Route Start Last Admin Trade Name Freq PRN Reason Stop Dose Admin Dextrose 25 - 50 ml 04/21/23 11:45 04/23/23 00:16 Dextrose 50% 50 Ml Syringe IV 05/21/23 11:44 25 ml UD PRN Administration Hypoglycemia Protocol Protocol Erythromycin 1 appln 04/22/23 10:00 04/23/23 06:09 Erythromycin Op Oint 5 Mg/Gm 3.5 Gm Tube OP 04/29/23 09:44 1 appln Q4H MICHELA Administration Acetaminophen 1,000 mg in 100 mls @ 400 mls/hr 04/21/23 11:45 04/21/23 23:52 Ofirmev IV 04/24/23 11:44 Infused Q8H PRN Infusion Pain or Fever Pantoprazole Sodium 40 mg/ 100 mls @ 20 mls/hr 04/21/23 12:30 04/23/23 03:52 Dextrose IV 05/21/23 11:44 8 mg/hr Q5H MICHELA 20 mls/hr Administration 8 MG/HR Lactated Ringer's 1,000 mls @ 75 mls/hr 04/22/23 10:00 04/23/23 00:34 Lr IV 04/23/23 12:39 75 mls/hr .[id number] MICHELA Administration Insulin Aspart 0 units 04/21/23 12:00 04/23/23 06:10 Insulin Aspart Per Unit Charge SC 05/21/23 11:59 Not Given Q6 MICHELA Levothyroxine Sodium 50 mcg 04/22/23 06:30 04/22/23 06:29 Levothyroxine Sodium 50 Mcg Tablet PO 05/22/23 06:29 50 mcg DAILYBB MICHELA Administration Lidocaine 1 patch 04/22/23 09:00 04/22/23 09:30 Lidocaine 5% 1 Patch TD 05/22/23 08:59 1 patch QAM MICHELA Administration Metoprolol Succinate 50 mg 04/21/23 11:45 04/22/23 09:30 Metoprolol Succ 50mg Ext Rel Tab PO 05/21/23 11:44 50 mg QAM MICHELA Administration Mirtazapine 15 mg 04/21/23 21:00 04/22/23 19:58 Mirtazapine Tab 15 Mg Tab PO 05/21/23 20:59 15 mg HS MICHELA Administration Miscellaneous 1 each 04/21/23 21:00 04/22/23 20:00 Remove Lidoderm Patch N/A 05/21/23 20:59 1 each DAILY@2100 MICHELA Administration Oxycodone HCl 5 mg 04/21/23 11:45 04/22/23 09:37 Oxycodone Hcl Ir 5 Mg Tab (Immediate Release) PO 05/05/23 11:44 5 mg Q6H PRN Administration Pain Pravastatin Sodium 40 mg 04/22/23 09:00 04/22/23 09:30 Pravastatin Sod 40 Mg Tab PO 05/22/23 08:59 40 mg DAILY MICHELA Administration Tamoxifen Citrate 20 mg 04/22/23 09:00 04/22/23 11:17 Tamoxifen Citrate 10 Mg Tablet PO 05/22/23 08:59 20 mg DAILY MICHELA Administration NPO Date Last Intake of Fluids: 04/22/23 Time Last Intake of Fluids: 21:00 Date Last Intake of Solids: 04/21/23 Time Last Intake of Solids: 12:00 Past Medical History Medical History Ductal carcinoma in situ (DCIS) of left breast CLL (chronic lymphocytic leukemia) Hypothyroidism Diabetes mellitus type 2 in nonobese AV heart block High cholesterol Neuropathy History of chicken pox Exercise / Class Metabolic Activity III < 4 Walking/Shop/Light housework Past Family History Family History Grandmother (Paternal) Breast cancer Mother CHF (congestive heart failure) Father COPD (chronic obstructive pulmonary disease) Heart disease Emphysema lung Denies family history of Ovarian cancer Prostate cancer Colorectal cancer Past Surgical History Surgical History H/O right breast biopsy cyst; benign; 15 years ago S/P placement of cardiac pacemaker S/P lumpectomy, left breast S/P left mastectomy History of cryosurgery to cervix d/t cervical erosion S/P oophorectomy right S/P tonsillectomy S/P cholecystectomy S/P wisdom tooth extraction S/P tubal ligation Past Anesthesia History No Hx of Anesthesia Complications and No Family Hx of Anesthesia Complications History of PONV No Hx of PONV and No Hx of Motion Sickness Social History Smoking Status: Never smoker Do You Dip or Chew Tobacco: No Hx Alcohol Use: No Hx Substance Use: No substance use type: does not use Physical Exam Vital Signs Last Vital Signs Temp 36.8 C 04/23/23 08:09 Pulse 77 04/23/23 08:09 Resp 16 04/23/23 08:09 BP 133/80 04/23/23 08:09 Pulse Ox 94 04/23/23 08:09 O2 Del Method Room Air 04/23/23 08:09 O2 Flow Rate 2 04/23/23 03:00 Constitutional no acute distress ENMT Mouth: + chipped teeth; no loose teeth Thyromental Distance: > or= 3.5 Finger Breadths Mallampati Class: II Neck normal visual inspection and trachea midline; neck extension not limited Respiratory normal respiratory effort; no respiratory distress Auscultation: lungs clear to auscultation bilaterally; no crackles, no rhonchi and no wheezes Cardiovascular Rate/Rhythm: regular rate and regular rhythm (occ ectopy) Heart Sounds: no gallop, no murmur and no cardiac rub Chest (Breasts) Chest: + pacemaker Musculoskeletal Head/Neck/Chest: full ROM of neck Neurologic moves all extremities and awake Psychiatric Orientation: alert and oriented x 3 Testing Laboratory Results 04/23/23 06:56 04/23/23 06:56 Urine Color Yellow 04/21/23 16:00 Urine Appearance Clear (Clear) 04/21/23 16:00 Urine pH 5.0 (4.5-7.5) 04/21/23 16:00 Ur Specific [place] > 1.045 (1.000-1.030) H 04/21/23 16:00 Urine Protein Negative (Negative) 04/21/23 16:00 Urine Glucose (UA) 3+ (Negative) H 04/21/23 16:00 Urine Ketones Negative (Negative) 04/21/23 16:00 Urine Nitrite Negative (Negative) 04/21/23 16:00 Ur Leukocyte Esterase Negative (Negative) 04/21/23 16:00 Urine WBC (Auto) 1-5 /hpf (0-5) 04/21/23 16:00 Urine RBC (Auto) 0-4 /hpf (0-4) 04/21/23 16:00 U Hyaline Cast (Auto) 1-5 /lpf (0-5) 04/21/23 16:00 U Epithel Cells (Auto) >30 /lpf (0-5) H 04/21/23 16:00 Urine Bacteria (Auto) Negative (Negative) 04/21/23 16:00 Blood Type O Positive 04/21/23 06:25 Antibody Screen NEGATIVE 04/21/23 06:25 04/23/23 04/23/23 04/23/23 06:04 00:34 00:04 POC Glucose 91 158 H 64 L*
--- NOTE | 2023-04-23 08:43 | History & Physical Report ---
Date of Service April 23, 2023 Assessment & Plan (1) Anemia: Plan: EGD today (2) Acute upper GI bleed: Admission and Anticipated Discharge Date Admission Date: April 21, 2023 History of Present Illness Primary Care Provider: Annabella Victoria DO Allergies Allergy/AdvReac Type Severity Reaction Status Date / Time erythromycin base Allergy Unknown gi upset Verified 04/21/23 07:59 Penicillins Allergy Unknown hives, rash Verified 04/21/23 07:59 Sulfa (Sulfonamide AdvReac upset Verified 04/21/23 07:59 Antibiotics) stomach Home Medications Medication Instructions Recorded Confirmed Type aspirin 81 mg chewable tablet 81 mg PO DAILY 12/30/18 04/21/23 History levothyroxine 50 mcg tablet 50 mcg PO DAILY 12/30/18 04/21/23 History losartan 100 mg tablet 100 mg PO DAILY 12/30/18 04/21/23 History pravastatin 40 mg tablet 40 mg PO DAILY 12/30/18 04/21/23 History amlodipine 2.5 mg tablet 2.5 mg PO DAILY 30 days #30 tabs 08/03/22 04/21/23 Rx dulaglutide 1.5 mg/0.5 mL 1.5 mg subcut WK 08/13/22 04/21/23 History subcutaneous pen injector ([facility]) metoprolol succinate 50 mg 50 mg PO DAILY 08/13/22 04/21/23 History tablet,extended release 24 hr multivitamin 1 tab PO DAILY 10/05/22 04/21/23 History omeprazole 20 mg tablet,delayed 20 mg PO DAILY PRN Acid Reflux 10/05/22 04/21/23 History release metformin 500 mg tablet,extended 1,000 mg PO BID 10/23/22 04/21/23 History release 24 hr fluoride (sodium) 1.1 % dental 1 applic dental DAILY 11/06/22 04/21/23 History cream (SF 5000 Plus) cholecalciferol (vitamin D3) 125 125 mcg PO DAILY 03/06/23 04/21/23 History mcg (5,000 unit) capsule mirtazapine 15 mg tablet 15 mg PO HS 03/06/23 04/21/23 History repaglinide 0.5 mg tablet 0.5 mg PO DAILY 03/06/23 04/21/23 History tamoxifen 20 mg tablet 20 mg PO DAILY 03/06/23 04/21/23 History Past Med/Surg History Medical History Ductal carcinoma in situ (DCIS) of left breast CLL (chronic lymphocytic leukemia) Hypothyroidism Diabetes mellitus type 2 in nonobese AV heart block High cholesterol Neuropathy History of chicken pox Surgical History H/O right breast biopsy cyst; benign; 15 years ago S/P placement of cardiac pacemaker S/P lumpectomy, left breast S/P left mastectomy History of cryosurgery to cervix d/t cervical erosion S/P oophorectomy right S/P tonsillectomy S/P cholecystectomy S/P wisdom tooth extraction S/P tubal ligation Family History Grandmother (Paternal) Breast cancer Mother CHF (congestive heart failure) Father COPD (chronic obstructive pulmonary disease) Heart disease Emphysema lung Denies family history of Ovarian cancer Prostate cancer Colorectal cancer Social History Smoking Status: Never smoker Second Hand Exposure: No; Do You Dip or Chew Tobacco: No; Tobacco Cessation Education Requested by Patient: No Hx Alcohol Use: No Hx Substance Use: No Preferred Language: Jamaican Communication Ability: Effective Criminal Justice Program Director Required: No Beliefs That Will Affect Care: None Current Living Situation: Correction 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; 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 Other Information That Helps Us Care for You: No Feels Safe at Home: Yes Safety Concerns: Feels Safe At This Time Assistive Devices: Cane Results & Data Vital Signs (Past 12 Hours) Vital Signs Temp Pulse Pulse Resp BP Pulse Ox O2 Del Method 04/23/23 08:09 36.8 C 77 16 133/80 94 Room Air 04/23/23 08:05 36.4 C L 80 16 169/85 H 96 Room Air 04/23/23 03:00 36.5 C 72 18 123/76 96 Nasal Cannula 04/23/23 00:00 81 04/22/23 23:02 36.6 C 72 20 116/73 93 Nasal Cannula O2 Flow Rate 04/23/23 08:09 12/18/23 08:05 04/23/23 03:00 2 04/23/23 00:00 04/22/23 23:02 2 Code Status & VTE Plan VTE Prophylaxis Plan VTE Prophylaxis will be ordered: Yes
[2023-04-23] MEDS ORDERED: fentaNYL citrate PF 100 MCG/2 ML VIAL ONE (08:49)
--- NOTE | 2023-04-23 09:05 | GI REPORT ---
Patient Name: Sera Plata Procedure Date: 04/23/2023 8:41 AM Date of : 1940 Admit Type: Inpatient Age: 82 Gender: Female Attending MD: Sneha Wetzel DO, Procedure: Upper GI endoscopy Providers: Sneha Wetzel DO Referring MD: Shelton Armstrong Md Indications: Acute post hemorrhagic anemia, Melena Medicines: Propofol per Anesthesia Complications: No immediate complications. Estimated blood loss: None. Estimated Blood Loss: Estimated blood loss: none. Procedure: Pre-Anesthesia Assessment: - Prior to the procedure, a History and Physical was performed, and patient medications, allergies and sensitivities were reviewed. The patient's tolerance of previous anesthesia was reviewed. - The risks and benefits of the procedure and the sedation options and risks were discussed with the patient. All questions were answered and informed consent was obtained. - Patient identification and proposed procedure were verified prior to the procedure by the physician and the nurse. The procedure was verified in the pre-procedure area in the procedure room. - Mental Status Examination: alert and oriented. Airway Examination: normal oropharyngeal airway and neck mobility. Respiratory Examination: clear to auscultation. CV Examination: normal. Abdominal Examination: bowel sounds present, abdomen soft and non-tender, no masses or organomegaly noted. - ASA Grade Assessment: III - A patient with severe systemic disease. After obtaining informed consent, the endoscope was passed under direct vision. Throughout the procedure, the patient's blood pressure, pulse, and oxygen saturations were monitored continuously. The Endoscope was introduced through the mouth, and advanced to the second part of duodenum. The upper GI endoscopy was accomplished without difficulty. The patient tolerated the procedure well. Findings: The esophagus was normal. The stomach was normal. One non-bleeding cratered duodenal ulcer with adherent clot was found in the duodenal bulb. For hemostasis, one hemostatic clip was successfully placed (MR conditional). There was no bleeding at the end of the procedure. The second portion of the duodenum was normal. Impression: - Mild esophagitis. - Normal stomach. - Non-bleeding duodenal ulcer with adherent clot. Clip (MR conditional) was placed. - Normal second portion of the duodenum. - No specimens collected. Recommendation: - Continue PPI gtt for 72 hours total. - Check stool for H pylori and treat is positive. Sips of clears and ice chips today No ASA or NSAIDs. Hold any anticoagulants. If rebleeding occurs, consider IR give the large size of the ulcer. - Return patient to [facility] for ongoing care. Sneha Wetzel D.O. Sneha Wetzel, 04/23/2023 9:04:35 AM This report has been signed electronically. Note Initiated On: 04/23/2023 8:41 AM Number of Addenda: 0 I attest to the content of the Intraoperative Record and orders documented therein, exceptions below {[id number]}
[2023-04-23] MEDS ORDERED: ONDANSETRON INJ 2 MG/ML 2 ML VIAL ONE (09:07)
[2023-04-23] MEDS: LIDOCAINE 5% 1 PATCH TD SCH (09:36)
[2023-04-23] MEDS: TAMOXIFEN CITRATE 10 MG TABLET PO SCH (09:37)
[2023-04-23] MEDS: METOPROLOL SUCC 50MG EXT REL TAB PO SCH (09:37)
[2023-04-23] MEDS: PRAVASTATIN SOD 40 MG TAB PO SCH (09:38)
[2023-04-23] MEDS: LEVOTHYROXINE SODIUM 50 MCG TABLET PO SCH (09:38)
[2023-04-23] MEDS: MAGNESIUM SULFATE / D5W 1 GM/100 ML BAG IV SCH ×2 (10:59→12:55)
[2023-04-23] MEDS: D5W AND LACTATED RINGERS 1,000 ML IV SCH (14:13)
--- NOTE | 2023-04-23 14:25 | Anesthesiology Progress Note ---
Date of Service April 23, 2023 Anesthesia Post Procedure Vital Signs Vital Signs: Temp Pulse Pulse Resp BP BP Pulse Ox 04/23/23 12:12 83 04/23/23 10:46 36.6 C 73 16 114/70 94 04/23/23 09:18 78 16 118/60 96 04/23/23 09:14 79 16 112/53 L 95 04/23/23 09:04 70 16 87/45 L 98 04/23/23 08:30 04/23/23 08:09 36.8 C 77 16 133/80 94 04/23/23 08:05 36.4 C L 80 16 169/85 H 96 04/23/23 03:00 36.5 C 72 18 123/76 96 04/23/23 00:00 81 04/22/23 23:02 36.6 C 72 20 116/73 93 04/22/23 19:07 36.9 C 80 20 130/74 93 04/22/23 18:29 36.6 C 72 16 130/79 94 O2 Del Method O2 Flow Rate 04/23/23 12:12 04/23/23 10:46 Nasal Cannula 2 04/23/23 09:18 Room Air 2 04/23/23 09:14 Nasal Cannula 2 04/23/23 09:04 Room Air 04/23/23 08:30 Room Air 04/23/23 08:09 Room Air 04/23/23 08:05 Room Air 04/23/23 03:00 Nasal Cannula 2 04/23/23 00:00 04/22/23 23:02 Nasal Cannula 2 04/22/23 19:07 Nasal Cannula 2 04/22/23 18:29 Nasal Cannula 1 Pain Intensity Back: Pain Intensity: 5 Transfer of Care Handoff Completed per policy Notes Mental Status: alert / awake / arousable and participated in evaluation Patient Amnestic to Procedure: Yes Nausea / Vomiting: adequately controlled Pain: adequately controlled Airway Patency, RR, SpO2: stable & adequate BP & HR: stable & adequate Hydration State: stable & adequate Anesthetic Complications: no major complications apparent
[2023-04-23] MEDS: ACETAMINOPHEN 1,000 MG/100 ML VIAL IV PRN (14:56)
--- NOTE | 2023-04-23 16:21 | Hospitalist Progress Note ---
Date of Service April 23, 2023 Assessment & Plan (1) Acute upper GI bleed: Plan: Melena Acute Blood Loss Anemia Likely due to esophagitis, duodenal ulcer Diarrhea likely due to above INR: Normal Hb dropped to 6.8 on presentation --CT abd suggestive of gastritis/duodenitis/ulcer disease --S/P 2 units PRBCs --Stool for C diff :Negative --S/P EGD:Mild esophagitis. Normal stomach.Non-bleeding duodenal ulcer with adherent clot. Clip (MR conditional) was placed. Normal second portion of the duodenum. No specimens collected. Hold Aspirin Continue Protonix drip for 72 hours Monitor H&H and transfuse PRBCs as needed Avoid anticoagulants, NASIDs Appreciate GI input N.p.o. for now If rebleeds, will need IR intervention given large size of the ulcer Will need H. pylori testing of stool as outpatient as could be false positive while on PPI per GI Consider to start clear liquid diet tomorrow Acute T8 Fracture Recurrent Falls Ambulatory dysfunction--has been using walker at baseline -CT:Acute fracture through the anterior osteophytes and superior endplate of T8. This does not involve the posterior elements, and there is no significant loss of height or retropulsion of fragments. The stability of this fracture is indeterminate. Fall precautions PT OT Appreciate Orthopedics Input: Recommends TLSO brace with activity. Pain control May need rehab placement Leukocytosis No clear signs of infection currently Stool negative for c diff Urinalysis Not suggestive of UTI No indication for antibiotics currently Hypomagnesemia Replete electrolytes as needed Hyperkalemia Received calcium gluconate Monitor BMP Hypoxia Recently treated for Pneumonia --CXR:Cardiomegaly and cardiac pacemaker without radiographic evidence of congestive failure. No airspace consolidation or large pleural effusion is identified. Right upper lobe consolidation seen on 04/09/2023 has almost completely resolved. 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 CLL DVT Px: SCDs Re: GI bleed Code Status Full Code Admission and Anticipated Discharge Date Admission Date: April 21, 2023 Subjective Patient is seen and examined at bedside Reports having back pain Had EGD earlier today Discussed with GI today No recurrence of bleeding issues Denies any nausea, vomiting, abdominal pain, chest pain, dyspnea Review of Systems Review of Systems: All systems reviewed & are unremarkable except as noted in Subjective Physical Exam Physical Exam: Physical Exam: Vitals signs as noted above General Appearance:Moderately built and nourished, no apparent distress Head: normocephalic, Atraumatic Eyes: normal inspection, EOMI Neck: supple, Trachea midline Respiratory/Chest: Normal breath sounds, CTA, No accessory muscle use Cardiovascular: S1, S2, + murmur Abdomen/GI:Soft, Non tender, Bowel sounds present Back+ Tender mid thoracic Extremities/Musculoskeletal:normal inspection, no edema Neurologic/Psych:AAOX2, grossly no focal neurological deficits Skin: normal color, warm Results & Data Results & Data Vital Signs (Past 12 Hours) Vital Signs Temp Pulse Pulse Resp BP Pulse Ox O2 Del Method 04/23/23 15:54 36.8 C 78 19 108/72 99 Nasal Cannula 04/23/23 12:12 83 04/23/23 10:46 36.6 C 73 16 114/70 94 Nasal Cannula 04/23/23 09:18 78 16 118/60 96 Room Air 04/23/23 09:14 79 16 112/53 L 95 Nasal Cannula 04/23/23 09:04 70 16 87/45 L 98 Room Air 04/23/23 08:30 Room Air 04/23/23 08:09 36.8 C 77 16 133/80 94 Room Air 04/23/23 08:05 36.4 C L 80 16 169/85 H 96 Room Air O2 Flow Rate 04/23/23 15:54 3.0 04/23/23 12:12 04/23/23 10:46 2 04/23/23 09:18 2 04/23/23 09:14 2 04/23/23 09:04 04/23/23 08:30 04/23/23 08:09 04/23/23 08:05 Laboratory Results Short CBC 04/23/23 Range/Units 06:56 WBC 6.36 (4.8-10.8) K/ul Hgb 8.7 L (12.0-16.0) g/dl Hct 26.3 L (37.0-47.0) % Plt Count 203 (130-400) K/uL BMP 04/23/23 06:56 Sodium 138 Potassium 3.8 Chloride 107 Carbon Dioxide 28 BUN 10 Creatinine 0.69 Glucose 81 Calcium 7.7 L
[2023-04-23] MEDS: oxyCODONE HCL IR 5 MG TAB (IMMEDIATE RELEASE) PO PRN ×2 (16:46→23:15)
[2023-04-23] MEDS: MIRTAZAPINE TAB 15 MG TAB PO SCH (20:20)
[2023-04-24] MEDS: PANTOprazole 40 MG in DEXTROSE 5% MINI-B 100 ML IV SCH ×4 (01:14→20:01)
[2023-04-24] MEDS: ERYTHROMYCIN OP OINT 5 MG/GM 3.5 GM TUBE OP SCH ×6 (02:00→22:42)
[2023-04-24] MEDS: INSULIN ASPART PER UNIT CHARGE SC SCH ×4 (05:13→20:12)
[2023-04-24] MEDS: LEVOTHYROXINE SODIUM 50 MCG TABLET PO SCH (05:21)
[2023-04-24 08:10] LABS: Hematocrit (blood only) 30.1 % (37.0-47.0); Hemoglobin 9.5 g/dl (12.0-16.0)
[2023-04-24 08:33] LABS: BUN Creatinine Ratio 9.3 (10-20); Calcium 7.8 mg/dl (8.6-10.3); Creatinine Clr Calc Pharmacy 48.1 ml/min; Est GFR (African American) 86.6 ml/min; Est GFR (Non-African American) 74.8 ml/min; Magnesium 1.7 mg/dl (1.7-2.4); Potassium 3.9 mmol/L (3.5-5.1)
[2023-04-24] MEDS: ACETAMINOPHEN 1,000 MG/100 ML VIAL IV PRN (08:54)
[2023-04-24] MEDS: D5W AND LACTATED RINGERS 1,000 ML IV SCH (08:54)
[2023-04-24] MEDS ORDERED: LANTUS PER UNIT CHARGE SC SCH (09:00)
--- NOTE | 2023-04-24 09:19 | Gastroenterology Progress Note ---
Date of Service April 24, 2023 Assessment & Plan (1) Duodenal ulcer: Plan IV PPI until 04/26. On 04/26 may change to pantoprazole 40mg po BID x 2 months then daily. Avoid NSAIDs if possible. No repeat EGD required. May start clear liquids po today. May have soft foods tomorrow if no further bleeding.. Check Hb/Hct daily. GI will watch peripherally. Recall if any gross Gi bleeding, any sign drop in Hb/Hct or other worsening condition. Admission and Anticipated Discharge Date Admission Date: April 21, 2023 Supervising Physician Co-Signing Physician Notes Patient was seen and examined on 04/24 with CASEY Cohen whose note reflects our findings and plan. H/H stable. Complete 72hr PPI gtt. Subjective 82 yr female admitted 04/21 w melena. EGD yesterday w large duodenal ulcer, clipped. No BMs since prior to EGD. Hb stable post transfusion at 9.5 (yesterday was 8,7). Pt denies any sign pain. No N/V. Asks to drink. Review of Systems Review of Systems: ROS: Gen: Denies weakness, fevers, weight loss Eyes: No eye redness, or pain, no recent vision changes Resp: No SOB, no cough Cardio: No palpitations/irregular beats, no chest pain GI: No abdominal pain, no nausea/vomiting : Denies pain on urination Skin: No jaundice, itching or new rashes Physical Exam Constitutional: WD/WN, vitals as above Eyes: PERRL, conjunctivae normal, anicteric sclerae ENMT: external ear and nose normal, oropharynx normal Neck: trachea midline, no thyromegaly Respiratory: normal respiratory effort, lungs clear to auscultation Cardiovascular: RRR, 2/6 systolic murmur, minimal edema, SCDs in place Gastrointestinal (Abdomen): minimal epigastric tenderness on deep palpation, otherwise non tender. Musculoskeletal: no cyanosis or clubbing, extremities motor strength 5/5 Skin: no rashes, warm and dry Neurologic: PERRL, EOMI, accommodation nl, no face palsy, no dysarthria Psychiatric: A+Ox3, euthymic affect Lymphatic: no cervical or axillary lymphadenopathy Results & Data Vital Signs (Past 12 Hours) Vital Signs Temp Pulse Pulse Resp BP BP Pulse Ox 04/24/23 07:03 36.9 C 85 18 159/71 H 94 04/24/23 03:05 36.4 C L 77 18 141/78 H 91 04/23/23 23:29 64 04/23/23 22:38 36.5 C 74 16 151/74 H 93 O2 Del Method O2 Flow Rate 04/24/23 07:03 Room Air 04/24/23 03:05 Room Air 04/23/23 23:29 04/23/23 22:38 Nasal Cannula 3 Laboratory Results Hb 9.5, Hct 30, Na 135, K 3.9, Cl 104, BUN 7, Cr 0.75
[2023-04-24] MEDS: LIDOCAINE 5% 1 PATCH TD SCH (10:33)
[2023-04-24] MEDS: TAMOXIFEN CITRATE 10 MG TABLET PO SCH (10:33)
[2023-04-24] MEDS: PRAVASTATIN SOD 40 MG TAB PO SCH (10:33)
[2023-04-24] MEDS: METOPROLOL SUCC 50MG EXT REL TAB PO SCH (10:33)
[2023-04-24] MEDS ORDERED: LANTUS PER UNIT CHARGE SC ONE (11:45)
--- NOTE | 2023-04-24 13:16 | Pharmacy Report ---
Pharmacy Glycemic Short Note 2 - Date of Service April 24, 2023 - Glycemic Short BSG Results (Last 24 hours): 04/23/23 04/23/23 04/24/23 18:12 23:20 05:06 Glucose POC Glucose 136 H 150 H 176 H 04/24/23 04/24/23 07:25 11:03 Glucose 172 H POC Glucose 252 H OUTPATIENT ANTIDIABETIC REGIMEN: * Trulicity 1.5 mg SQ weekly * Prandin * HbA1C = 8.5% (04/11/23) ASSESSMENT: 04/24 * Patient received no insulin yesterday, NPO the day. * Fasting BSG 172 mg/dL - IV fluids with dextrose started yesterday likely contributing to higher BSGs today. Will resume basal 10 units daily 04/22 * Ms Plata is an 82 y/o F with a PMH of T2DM who presents with fall. Patient is currently NPO. * Previous hospitalization (04/2023) demonstrated patient tolerated Lantus 12 units BID Novolog CF 30 CR10. * Due to NPO status, will give Lantus 20 units SQ x 1 (20% reduction) * Will utilize previously tolerated Novolog. PLAN FOR INPATIENT GLYCEMIC CONTROL: * Hold outpatient oral diabetes medications * Basal insulin * Lantus 10 units daily * Bolus insulin * NovoLog per scale ACHS or Q6hrs while NPO * Goal Range: Low 110 mg/dL - High 140 mg/dL * Correction Factor: 30 mg/dL/unit * Nutritional / Prandial insulin per carb ratio of 1 unit per 10 grams CHO consumed
--- NOTE | 2023-04-24 16:01 | Hospitalist Progress Note ---
Date of Service April 24, 2023 Assessment & Plan (1) Acute upper GI bleed: Plan: Melena Acute Blood Loss Anemia Likely due to esophagitis, duodenal ulcer Diarrhea likely due to above INR: Normal Hb dropped to 6.8 on presentation --CT abd suggestive of gastritis/duodenitis/ulcer disease --S/P 2 units PRBCs --Stool for C diff :Negative --S/P EGD:Mild esophagitis. Normal stomach.Non-bleeding duodenal ulcer with adherent clot. Clip (MR conditional) was placed. Normal second portion of the duodenum. No specimens collected. Hold Aspirin Continue Protonix drip for 72 hours (until 04/26/23), then Protonix 40 mg twice daily for 2 months then daily Monitor H&H and transfuse PRBCs as needed Avoid anticoagulants, NASIDs Appreciate GI input If rebleeds, will need IR intervention given large size of the ulcer Will need H. pylori testing of stool as outpatient as could be false positive while on PPI per GI Clear liquid diet today If no recurrence of bleeding will consider to change to soft diet tomorrow Acute T8 Fracture Recurrent [place] Ambulatory dysfunction--has been using walker at baseline -CT:Acute fracture through the anterior osteophytes and superior endplate of T8. This does not involve the posterior elements, and there is no significant loss of height or retropulsion of fragments. The stability of this fracture is indeterminate. Fall precautions PT OT Appreciate Orthopedics Input: Recommends TLSO brace with activity. Pain control May need rehab placement Leukocytosis No clear signs of infection currently Stool negative for c diff Urinalysis Not suggestive of UTI No indication for antibiotics currently Left eye suspected corneal abrasion Continue erythromycin cream Will need ophthalmology evaluation as outpatient Hypomagnesemia Replete electrolytes as needed Hyperkalemia Received calcium gluconate Monitor BMP Hypoxia Recently treated for Pneumonia --CXR:Cardiomegaly and cardiac pacemaker without radiographic evidence of congestive failure. No airspace consolidation or large pleural effusion is identified. Right upper lobe consolidation seen on 04/09/2023 has almost completely resolved. 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 CLL DVT Px: SCDs Re: GI bleed Code Status Full Code Admission and Anticipated Discharge Date Admission Date: April 21, 2023 Subjective Patient is seen and examined at bedside Back pain is controlled Discussed with patient's son over the phone Also discussed with GI today No bleeding issues currently Plan to be started on clear liquid diet today Still has left eye tearing, foreign body sensation Denies any nausea, vomiting, abdominal pain, chest pain, dyspnea Review of Systems Review of Systems: All systems reviewed & are unremarkable except as noted in Subjective Physical Exam Physical Exam: Physical Exam: Vitals signs as noted above General Appearance:Moderately built and nourished, no apparent distress Head: normocephalic, Atraumatic Eyes: normal inspection, EOMI Neck: supple, Trachea midline Respiratory/Chest: Normal breath sounds, CTA, No accessory muscle use Cardiovascular: S1, S2, + murmur Abdomen/GI:Soft, Non tender, Bowel sounds present Back+ Tender mid thoracic Extremities/Musculoskeletal:normal inspection, no edema Neurologic/Psych:AAOX2, grossly no focal neurological deficits Skin: normal color, warm Results & Data Results & Data Vital Signs (Past 12 Hours) Vital Signs Temp Pulse Pulse Resp BP Pulse Ox O2 Del Method 04/24/23 15:07 36.6 C 73 19 165/61 H 94 Room Air 04/24/23 12:27 67 04/24/23 11:04 36.4 C L 73 19 105/66 96 Room Air 04/24/23 07:03 36.9 C 85 18 159/71 H 94 Room Air Laboratory Results Short CBC 04/24/23 Range/Units 07:25 Hgb 9.5 L (12.0-16.0) g/dl Hct 30.1 L (37.0-47.0) % BMP 04/24/23 07:25 Sodium 135 L Potassium 3.9 Chloride 104 Carbon Dioxide 28 BUN 7 Creatinine 0.75 Glucose 172 H Calcium 7.8 L
[2023-04-24] MEDS: oxyCODONE HCL IR 5 MG TAB (IMMEDIATE RELEASE) PO PRN ×2 (16:56→22:42)
[2023-04-24] MEDS: MIRTAZAPINE TAB 15 MG TAB PO SCH (20:02)
[2023-04-25] MEDS: PANTOprazole 40 MG in DEXTROSE 5% MINI-B 100 ML IV SCH ×5 (01:52→21:33)
[2023-04-25] MEDS: ERYTHROMYCIN OP OINT 5 MG/GM 3.5 GM TUBE OP SCH ×6 (02:00→20:07)
[2023-04-25] MEDS: LEVOTHYROXINE SODIUM 50 MCG TABLET PO SCH (05:56)
[2023-04-25] MEDS: METOPROLOL SUCC 50MG EXT REL TAB PO SCH (08:08)
[2023-04-25] MEDS: PRAVASTATIN SOD 40 MG TAB PO SCH (08:08)
[2023-04-25] MEDS: TAMOXIFEN CITRATE 10 MG TABLET PO SCH (08:08)
[2023-04-25] MEDS: INSULIN ASPART PER UNIT CHARGE SC SCH ×4 (08:10→20:15)
[2023-04-25] MEDS: LANTUS PER UNIT CHARGE SC SCH (08:10)
[2023-04-25] MEDS: LIDOCAINE 5% 1 PATCH TD SCH (08:11)
[2023-04-25 08:18] LABS: Hematocrit (blood only) 28.8 % (37.0-47.0); Hemoglobin 9.4 g/dl (12.0-16.0)
[2023-04-25 08:32] LABS: BUN Creatinine Ratio 7.4 (10-20); Calcium 7.6 mg/dl (8.6-10.3); Creatinine Clr Calc Pharmacy 53.4 ml/min; Est GFR (African American) 95.1 ml/min; Magnesium 1.4 mg/dl (1.7-2.4)
--- NOTE | 2023-04-25 11:09 | Gastroenterology Progress Note ---
Date of Service April 25, 2023 Assessment & Plan (1) Duodenal ulcer: Plan Last night small red-black bowel movement most likely represents residual bloody fecal material from prior to the EGD. No evidence of current GI bleeding. IV PPI until tomorrow., Then pantoprazole 40 mg p.o. twice daily x 2 months then daily. Avoid NSAIDs. No repeat EGD needed. No OP GI follow-up required unless patient has symptoms. Advance to full liquids p.o. GI will sign off. Recall if any gross Gi bleeding, any sign drop in Hb/Hct or other worsening condition. Admission and Anticipated Discharge Date Admission Date: April 21, 2023 Supervising Physician Co-Signing Physician Notes I have seen and examined the patient with CASEY Busby whose note reflects our findings and plan. BID PPI at home upon discharge Subjective 82-year-old female admitted 1218, EGD yesterday with a large duodenal ulcer clipped. On PPI drip. One small loose black/red BM last evening. Hb stable post transfusion. BUN normal. Taking clear liquids well po. No abd pain. Most bothersome symptom today is left eye irritation. Review of Systems Review of Systems: ROS: Gen: Denies weakness, fevers, weight loss Eyes:L eye, lower lid irritated x a bout 5 days, watering, no light sensitivity. Resp: No SOB, no cough Cardio: No palpitations/irregular beats, no chest pain GI: No abdominal pain, no nausea/vomiting : Denies pain on urination Skin: No jaundice, itching or new rashes Physical Exam Constitutional: WD/WN, vitals as above Eyes: L eye, lower lid irritated mildly edematous, mild redness, watering, sclera mildly injected. ENMT: external ear and nose normal, oropharynx normal Neck: trachea midline, no thyromegaly Respiratory: normal respiratory effort, lungs clear to auscultation Cardiovascular: RRR, no murmur, no edema Gastrointestinal (Abdomen): normal bowel sounds, soft, nontender, no hepatosplenomegaly Musculoskeletal: no cyanosis or clubbing, extremities motor strength 5/5 Skin: no rashes, warm and dry Neurologic: PERRL, EOMI, accommodation nl, no face palsy, no dysarthria Psychiatric: A+Ox3, euthymic affect Lymphatic: no cervical or axillary lymphadenopathy Results & Data Vital Signs (Past 12 Hours) Vital Signs Temp Pulse Pulse Resp BP BP Pulse Ox 04/25/23 07:39 77 04/25/23 07:39 04/25/23 07:03 36.9 C 72 18 154/65 H 94 04/25/23 02:24 36.9 C 66 18 154/79 H 93 04/24/23 23:40 71 04/24/23 23:07 36.7 C 90 18 152/74 H 92 O2 Del Method 04/25/23 07:39 04/25/23 07:39 Room Air 04/25/23 07:03 Room Air 04/25/23 02:24 Room Air 04/24/23 23:40 04/24/23 23:07 Room Air Laboratory Results Hemoglobin 9.4, hematocrit 28.8, NA 136, K4.0, CL 106, CO2 28,BUN 3, CR 0.7, glucose 86
--- NOTE | 2023-04-25 12:23 | Hospitalist Progress Note ---
Date of Service April 25, 2023 Assessment & Plan (1) Acute upper GI bleed: Plan: Melena Acute Blood Loss Anemia Likely due to esophagitis, duodenal ulcer Diarrhea likely due to above INR: Normal Hb dropped to 6.[address] abd suggestive of gastritis/duodenitis/ulcer disease Stool for C diff :Negative S/P EGD on 04/23/23 :Mild esophagitis. Normal stomach.Non-bleeding duodenal ulcer with adherent clot. Clip (MR conditional) was placed. Normal second portion of the duodenum. No specimens collected. S/P 2 units PRBCs Continue to hold Aspirin Continue Protonix drip for 72 hours (until 04/26/23), then Protonix 40 mg twice daily for 2 months then daily Hb remains stable Monitor H&H and transfuse PRBCs as needed to keep Hb >7 Avoid anticoagulants, NSAIDs If rebleeds, may need IR intervention given large size of the ulcer GI recs noted Diet advanced to full liquid diet today Acute T8 Fracture Recurrent [place] Ambulatory dysfunction--has been using walker at baseline -CT:Acute fracture through the anterior osteophytes and superior endplate of T8. This does not involve the posterior elements, and there is no significant loss of height or retropulsion of fragments. The stability of this fracture is indeterminate. Fall precautions PT OT eval noted Appreciate Orthopedics Input: Recommends TLSO brace with activity. Pain control CM working on rehab placement Leukocytosis No clear signs of infection Stool negative for c diff Urinalysis not suggestive of UTI No indication for antibiotics Resolved as of last WBC of 6.36 on 04/23/23 Left eye redness Conjunctivitis vs suspected corneal abrasion Continue erythromycin cream Will need ophthalmology evaluation as outpatient Hypomagnesemia Mg is 1.4 today Repletion ordered Monitor Hypoxia Recently treated for Pneumonia --CXR:Cardiomegaly and cardiac pacemaker without radiographic evidence of congestive failure. No airspace consolidation or large pleural effusion is identified. Right upper lobe consolidation seen on 04/09/2023 has almost completely resolved. 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 CLL DVT Px: SCDs Re: GI bleed Code Status Full Code I spent a total of 55 minutes coordinating, documenting and providing care for this patient excluding time spent in performance of separately billed services Admission and Anticipated Discharge Date Admission Date: April 21, 2023 Subjective Patient seen and examined Reports back pain is better while wearing the TLSO brace Reports left eye pain/itching Denied any fever, headache, sorethroat, congestion Denied cough, chest pain, SOB Per RN, stool is dark Denied any abd pain, dizziness, nausea, vomiting Denied dysuria, freq, urgency Physical Exam Constitutional: + well hydrated; no acute distress Sitting in chair Eyes: Left conjunctival redness ENMT: external ear and nose normal, oropharynx normal Respiratory: normal respiratory effort, lungs clear to auscultation Cardiovascular: Rate/Rhythm: regular rate and regular rhythm S1 S2 Gastrointestinal (Abdomen): normal bowel sounds, soft, nontender, no hepatosplenomegaly Musculoskeletal: No pedal edema Brace on Neurologic: PERRL, EOMI, accommodation nl, no face palsy, no dysarthria Psychiatric: A+Ox3, euthymic affect Results & Data Results & Data Vital Signs (Past 12 Hours) Vital Signs Temp Pulse Pulse Resp BP BP Pulse Ox 04/25/23 11:34 36.7 C 75 19 160/69 H 99 04/25/23 07:39 77 04/25/23 07:39 04/25/23 07:03 36.9 C 72 18 154/65 H 94 04/25/23 02:24 36.9 C 66 18 154/79 H 93 O2 Del Method 04/25/23 11:34 Room Air 04/25/23 07:39 04/25/23 07:39 Room Air 04/25/23 07:03 Room Air 04/25/23 02:24 Room Air Laboratory Results Abnormal lab results 04/24/23 04/24/23 04/25/23 Range/Units 16:08 20:06 06:36 Hgb 9.4 L (12.0-16.0) g/dl Hct 28.8 L (37.0-47.0) % Anion Gap 2 L (3-11) BUN 5 L (6-23) mg/dl BUN/Creatinine Ratio 7.4 L (10-20) Glucose 139 H (70-99(Fasting)) mg/dl POC Glucose 131 H 162 H (70-99) mg/dl Calcium 7.6 L (8.6-10.3) mg/dl Magnesium 1.4 L (1.7-2.4) mg/dl 04/25/23 04/25/23 Range/Units 07:06 11:33 Hgb (12.0-16.0) g/dl Hct (37.0-47.0) % Anion Gap (3-11) BUN (6-23) mg/dl BUN/Creatinine Ratio (10-20) Glucose (70-99(Fasting)) mg/dl POC Glucose 149 H 166 H (70-99) mg/dl Calcium (8.6-10.3) mg/dl Magnesium (1.7-2.4) mg/dl
[2023-04-25] MEDS: MAGNESIUM SULFATE / D5W 1 GM/100 ML BAG IV SCH ×2 (12:26→14:20)
[2023-04-25] MEDS: oxyCODONE HCL IR 5 MG TAB (IMMEDIATE RELEASE) PO PRN (14:18)
[2023-04-25] MEDS: MIRTAZAPINE TAB 15 MG TAB PO SCH (20:07)
[2023-04-26] MEDS: PANTOprazole 40 MG in DEXTROSE 5% MINI-B 100 ML IV SCH ×2 (02:20→07:36)
[2023-04-26] MEDS: ERYTHROMYCIN OP OINT 5 MG/GM 3.5 GM TUBE OP SCH ×6 (02:21→19:54)
[2023-04-26] MEDS: LEVOTHYROXINE SODIUM 50 MCG TABLET PO SCH (05:45)
[2023-04-26 07:35] LABS: Hemoglobin 9.3 g/dl (12.0-16.0); Mean Corpuscular Hemoglobin 28.7 pg (25.0-34.0); Mean Corpuscular Hgb Conc 33.2 g/dL (32.0-36.0); Mean Corpuscular Volume 86.4 fL (80.0-100.0); Mean Platelet Volume 10.9 fL (9.4-12.4); Platelet Count 161 K/uL (130-400); RDW Coefficient of Variation 15.7 % (11.5-14.5); RDW Standard Deviation 49.1 fL (36.4-46.3); Red Blood Count 3.24 M/uL (4.20-5.40); White Blood Count 4.77 K/ul (4.8-10.8)
[2023-04-26 07:46] LABS: BUN Creatinine Ratio 10.4 (10-20); Calcium 7.9 mg/dl (8.6-10.3); Creatinine Clr Calc Pharmacy 53.5 ml/min; Est GFR (African American) 95.5 ml/min; Est GFR (Non-African American) 82.4 ml/min; Magnesium 1.6 mg/dl (1.7-2.4); Phosphorus 2.4 mg/dl (2.5-4.9); Potassium 3.9 mmol/L (3.5-5.1)
[2023-04-26] MEDS: METOPROLOL SUCC 50MG EXT REL TAB PO SCH (08:04)
[2023-04-26] MEDS: PRAVASTATIN SOD 40 MG TAB PO SCH (08:04)
[2023-04-26] MEDS: TAMOXIFEN CITRATE 10 MG TABLET PO SCH (08:04)
[2023-04-26] MEDS: LIDOCAINE 5% 1 PATCH TD SCH (08:04)
[2023-04-26] MEDS: INSULIN ASPART PER UNIT CHARGE SC SCH ×4 (08:08→19:54)
[2023-04-26] MEDS: LANTUS PER UNIT CHARGE SC SCH (08:09)
[2023-04-26] MEDS: MAGNESIUM SULFATE / D5W 1 GM/100 ML BAG IV SCH ×2 (09:05→11:00)
[2023-04-26] MEDS: PANTOprazole 40 MG TAB PO SCH ×2 (09:35→19:54)
--- NOTE | 2023-04-26 11:48 | Hospitalist Progress Note ---
Date of Service April 26, 2023 Assessment & Plan (1) Acute upper GI bleed: Plan: Melena Acute Blood Loss Anemia Likely due to esophagitis, duodenal ulcer Diarrhea likely due to above INR: Normal Hb dropped to 6.[address] abd suggestive of gastritis/duodenitis/ulcer disease Stool for C diff :Negative S/P EGD on 04/23/23 :Mild esophagitis. Normal stomach.Non-bleeding duodenal ulcer with adherent clot. Clip (MR conditional) was placed. Normal second portion of the duodenum. No specimens collected. S/P 2 units PRBCs Continue to hold Aspirin Completed 72hrs Protonix drip Started on PO Protonix 40 mg twice daily for 2 months. Will continue it daily after 2 months Hb remains stable Monitor H&H and transfuse PRBCs as needed to keep Hb >7 Avoid anticoagulants, NSAIDs Diet advanced Acute T8 Fracture Recurrent Falls Ambulatory dysfunction--has been using walker at baseline -CT:Acute fracture through the anterior osteophytes and superior endplate of T8. This does not involve the posterior elements, and there is no significant loss of height or retropulsion of fragments. The stability of this fracture is indeterminate. Fall precautions PT OT eval noted [facility] Input: Recommends TLSO brace with activity. Pain control Vit D 63 Leukocytosis No clear signs of infection Stool negative for c diff Urinalysis not suggestive of UTI No indication for antibiotics Resolved as of last WBC of 6.36 on 04/23/23 Left eye redness Conjunctivitis vs suspected corneal abrasion Continue erythromycin cream Will need ophthalmology evaluation as outpatient Hypomagnesemia Mg is 1.6 today Repletion ordered Monitor Hypoxia Recently treated for Pneumonia --CXR:Cardiomegaly and cardiac pacemaker without radiographic evidence of congestive failure. No airspace consolidation or large pleural effusion is identified. Right upper lobe consolidation seen on 04/09/2023 has almost completely resolved. 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 Request for acute inpt rehab was denied The insurance personnel noted pt can go to SNF or appeal decision CM who is working on placement notified Code Status Full Code I spent a total of 50 minutes coordinating, documenting and providing care for this patient excluding time spent in performance of separately billed services Admission and Anticipated Discharge Date Admission Date: April 21, 2023 Subjective Patient seen and examined Reports left eye pain/itching is mildly improved Denied any fever, headache, sorethroat, congestion Denied cough, chest pain, SOB Denied any abd pain, dizziness, nausea, vomiting Denied dysuria, freq, urgency Physical Exam Constitutional: + well hydrated; no acute distress ENMT: external ear and nose normal, oropharynx normal Respiratory: normal respiratory effort, lungs clear to auscultation Cardiovascular: Rate/Rhythm: regular rate and regular rhythm S1 S2 Gastrointestinal (Abdomen): normal bowel sounds, soft, nontender, no hepatosplenomegaly Musculoskeletal: Wearing her brace Neurologic: PERRL, EOMI, accommodation nl, no face palsy, no dysarthria Psychiatric: A+Ox3, euthymic affect Results & Data Results & Data Vital Signs (Past 12 Hours) Vital Signs Temp Pulse Pulse Resp BP BP Pulse Ox 04/26/23 08:12 36.8 C 74 19 161/64 H 96 04/26/23 07:14 04/26/23 06:49 71 04/26/23 04:33 36.5 C 71 18 145/82 H 93 O2 Del Method 04/26/23 08:12 Room Air 04/26/23 07:14 Room Air 04/26/23 06:49 04/26/23 04:33 Room Air Laboratory Results Abnormal lab results 04/25/23 04/25/23 04/26/23 Range/Units 16:08 20:11 06:15 WBC 4.77 L (4.8-10.8) K/ul RBC 3.24 L (4.20-5.40) M/uL Hgb 9.3 L (12.0-16.0) g/dl Hct 28.0 L (37.0-47.0) % RDW Std Deviation 49.1 H (36.4-46.3) fL RDW Coeff of Karrie 15.7 H (11.5-14.5) % Glucose 138 H (70-99(Fasting)) mg/dl POC Glucose 187 H 208 H (70-99) mg/dl Calcium 7.9 L (8.6-10.3) mg/dl Phosphorus 2.4 L (2.5-4.9) mg/dl Magnesium 1.6 L (1.7-2.4) mg/dl 04/26/23 04/26/23 04/26/23 Range/Units 07:21 11:21 11:36 WBC (4.8-10.8) K/ul RBC (4.20-5.40) M/uL Hgb (12.0-16.0) g/dl Hct (37.0-47.0) % RDW Std Deviation (36.4-46.3) fL RDW Coeff of Karrie (11.5-14.5) % Glucose (70-99(Fasting)) mg/dl POC Glucose 139 H 239 H 228 H (70-99) mg/dl Calcium (8.6-10.3) mg/dl Phosphorus (2.5-4.9) mg/dl Magnesium (1.7-2.4) mg/dl
--- NOTE | 2023-04-26 15:13 | Pharmacy Report ---
Pharmacy Glycemic Short Note 2 - Date of Service April 26, 2023 - Glycemic Short BSG Results (Last 24 hours): 04/25/23 04/25/23 04/26/23 16:08 20:11 06:15 Glucose 138 H POC Glucose 187 H 208 H 04/26/23 04/26/23 04/26/23 07:21 11:21 11:36 Glucose POC Glucose 139 H 239 H 228 H OUTPATIENT ANTIDIABETIC REGIMEN: * Trulicity 1.5 mg SQ weekly * Prandin * HbA1C = 8.5% (04/11/23) ASSESSMENT: 04/26: * Patient received total 24 units of insulin yesterday; 10 units basal + 14 units bolus. * BSGs yesterday were [phone] mg/dl. * Basal insulin continued the same at 10 units daily. * Since post-prandial BSGs are trending up, lunch BSG = 228 mg/dl today, Novolog parameters tightened slightly. 04/24 * Patient received no insulin yesterday, NPO the day. * Fasting BSG 172 mg/dL - IV fluids with dextrose started yesterday likely contributing to higher BSGs today. Will resume basal 10 units daily 04/22 * Ms Plata is an 82 y/o F with a PMH of T2DM who presents with fall. Patient is currently NPO. * Previous hospitalization (04/2023) demonstrated patient tolerated Lantus 12 units BID Novolog CF 30 CR10. * Due to NPO status, will give Lantus 20 units SQ x 1 (20% reduction) * Will utilize previously tolerated Novolog. PLAN FOR INPATIENT GLYCEMIC CONTROL: * Hold outpatient diabetes medications * Basal insulin * Lantus 10 units daily * Bolus insulin * NovoLog per scale ACHS or Q6hrs while NPO * Goal Range: Low 110 mg/dL - High 140 mg/dL * Correction Factor: 20 mg/dL/unit * Nutritional / Prandial insulin per carb ratio of 1 unit per 8 grams CHO consumed
[2023-04-26] MEDS: MIRTAZAPINE TAB 15 MG TAB PO SCH (19:54)
[2023-04-27] MEDS: ERYTHROMYCIN OP OINT 5 MG/GM 3.5 GM TUBE OP SCH ×6 (02:24→19:39)
[2023-04-27] MEDS: LEVOTHYROXINE SODIUM 50 MCG TABLET PO SCH (05:52)
[2023-04-27 07:53] LABS: Hematocrit (blood only) 28.6 % (37.0-47.0); Mean Corpuscular Hemoglobin 27.6 pg (25.0-34.0); Mean Corpuscular Hgb Conc 31.5 g/dL (32.0-36.0); Mean Corpuscular Volume 87.7 fL (80.0-100.0); Mean Platelet Volume 10.9 fL (9.4-12.4); Platelet Count 176 K/uL (130-400); RDW Coefficient of Variation 15.7 % (11.5-14.5); RDW Standard Deviation 49.9 fL (36.4-46.3); Red Blood Count 3.26 M/uL (4.20-5.40); White Blood Count 5.16 K/ul (4.8-10.8)
[2023-04-27 07:54] LABS: Calcium 8.2 mg/dl (8.6-10.3); Creatinine Clr Calc Pharmacy 46.6 ml/min; Est GFR (African American) 83.9 ml/min; Est GFR (Non-African American) 72.4 ml/min; Magnesium 1.6 mg/dl (1.7-2.4); Phosphorus 3.3 mg/dl (2.5-4.9)
[2023-04-27] MEDS ORDERED: MAGNESIUM SULFATE / D5W 1 GM/100 ML BAG IV ONE (07:59)
[2023-04-27] MEDS: TAMOXIFEN CITRATE 10 MG TABLET PO SCH (08:56)
[2023-04-27] MEDS: METOPROLOL SUCC 50MG EXT REL TAB PO SCH (08:57)
[2023-04-27] MEDS: PRAVASTATIN SOD 40 MG TAB PO SCH (08:57)
[2023-04-27] MEDS: PANTOprazole 40 MG TAB PO SCH ×2 (08:57→19:38)
[2023-04-27] MEDS: LIDOCAINE 5% 1 PATCH TD SCH (08:58)
[2023-04-27] MEDS: INSULIN ASPART PER UNIT CHARGE SC SCH ×4 (08:59→20:04)
[2023-04-27] MEDS: LANTUS PER UNIT CHARGE SC SCH (08:59)
[2023-04-27] MEDS: MAGNESIUM OXIDE 400 MG TAB PO SCH (09:00)
--- NOTE | 2023-04-27 14:23 | Pharmacy Report ---
Pharmacy Glycemic Short Note 2 - Date of Service April 27, 2023 - Glycemic Short BSG Results (Last 24 hours): 04/26/23 04/26/23 04/27/23 16:25 19:46 06:35 Glucose 118 H POC Glucose 141 H 146 H 04/27/23 04/27/23 07:26 11:19 Glucose POC Glucose 127 H 238 H OUTPATIENT ANTIDIABETIC REGIMEN: * Trulicity 1.5 mg SQ weekly * Prandin * HbA1C = 8.5% (04/11/23) ASSESSMENT: 04/27: * Patient received total of 22 units of insulin yesterday, of which 10 units were basal insulin * Fasting BSG 118 mg/dL - continue same basal insulin * Lunch BSG trending up each day, will trial tighter CR with breakfast check tomorrow 04/26: * Patient received total 24 units of insulin yesterday; 10 units basal + 14 units bolus. * BSGs yesterday were [phone] mg/dl. * Basal insulin continued the same at 10 units daily. * Since post-prandial BSGs are trending up, lunch BSG = 228 mg/dl today, Novolog parameters tightened slightly. 04/24 * Patient received no insulin yesterday, NPO the day. * Fasting BSG 172 mg/dL - IV fluids with dextrose started yesterday likely contributing to higher BSGs today. Will resume basal 10 units daily 04/22 * Ms Plata is an 82 y/o F with a PMH of T2DM who presents with fall. Patient is currently NPO. * Previous hospitalization (04/2023) demonstrated patient tolerated Lantus 12 units BID Novolog CF 30 CR10. * Due to NPO status, will give Lantus 20 units SQ x 1 (20% reduction) * Will utilize previously tolerated Novolog. PLAN FOR INPATIENT GLYCEMIC CONTROL: * Hold outpatient diabetes medications * Basal insulin * Lantus 10 units daily * Bolus insulin * NovoLog per scale ACHS or Q6hrs while NPO * Goal Range: Low 110 mg/dL - High 140 mg/dL * Correction Factor: 20 mg/dL/unit * Nutritional / Prandial insulin per carb ratio of 1 unit per 8 grams CHO consumed ( CR of 6 with breakfast only)
--- NOTE | 2023-04-27 14:27 | Hospitalist Progress Note ---
Date of Service April 27, 2023 Assessment & Plan (1) Acute upper GI bleed: Plan: Melena Acute Blood Loss Anemia Likely due to esophagitis, duodenal ulcer Diarrhea likely due to above INR: Normal Hb dropped to 6.[address] abd suggestive of gastritis/duodenitis/ulcer disease Stool for C diff :Negative S/P EGD on 04/23/23 :Mild esophagitis. Normal stomach.Non-bleeding duodenal ulcer with adherent clot. Clip (MR conditional) was placed. Normal second portion of the duodenum. No specimens collected. S/P 2 units PRBCs Continue to hold Aspirin Completed 72hrs Protonix drip Currently on PO Protonix 40 mg twice daily for 2 months. Will continue it daily after 2 months Hb remains stable Monitor H&H and transfuse PRBCs as needed to keep Hb >7 Avoid anticoagulants, NSAIDs Acute T8 Fracture Recurrent Falls Ambulatory dysfunction--has been using walker at baseline -CT:Acute fracture through the anterior osteophytes and superior endplate of T8. This does not involve the posterior elements, and there is no significant loss of height or retropulsion of fragments. The stability of this fracture is indeterminate. Fall precautions PT OT eval noted [facility] Input: Recommends TLSO brace with activity. Pain control Vit D 63 Leukocytosis No clear signs of infection Stool negative for c diff Urinalysis not suggestive of UTI No indication for antibiotics Resolved as of last WBC of 6.36 on 04/23/23 Left eye redness Conjunctivitis vs suspected corneal abrasion Continue erythromycin cream Will need ophthalmology evaluation as outpatient Hypomagnesemia Mg is 1.6 today Replete and start po mag Monitor Hypoxia Recently treated for Pneumonia --CXR:Cardiomegaly and cardiac pacemaker without radiographic evidence of congestive failure. No airspace consolidation or large pleural effusion is identified. Right upper lobe consolidation seen on 04/09/2023 has almost completely resolved. 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 Patient to follow up outpatient DM Type II: Last HbA1c 8.5 Will hold oral diabetic meds ISS, basal Insulin, Accu checks Glycemic pharm on board for insulin mgt Other chronic conditions Complete heart block s/p PPM placement 08/02/22 Hypertension--hold antihypertensives 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 CLL DVT Px: SCDs Re: GI bleed Patient reports they are appealing insurance denial of [facility] CM working on placement Code Status Full Code I spent a total of 40 minutes coordinating, documenting and providing care for this patient excluding time spent in performance of separately billed services Admission and Anticipated Discharge Date Admission Date: April 21, 2023 Subjective Patient seen and examined Denies any new complaints today Reports left eye redness is improving Denied any fever, headache, sorethroat, congestion Denied cough, chest pain, SOB Denied any abd pain, dizziness, nausea, vomiting Denied dysuria, freq, urgency Physical Exam Constitutional: + well hydrated; no acute distress Eyes: Left conjunctival erythema ENMT: external ear and nose normal, oropharynx normal Respiratory: normal respiratory effort, lungs clear to auscultation Cardiovascular: Rate/Rhythm: regular rate and regular rhythm S1 S2 Gastrointestinal (Abdomen): normal bowel sounds, soft, nontender, no hepatosplenomegaly Musculoskeletal: No pedal edema Neurologic: PERRL, EOMI, accommodation nl, no face palsy, no dysarthria Psychiatric: A+Ox3, euthymic affect Results & Data Results & Data Vital Signs (Past 12 Hours) Vital Signs Temp Pulse Pulse Resp BP Pulse Ox O2 Del Method 04/27/23 12:07 36.7 C 92 H 18 145/73 H 99 Room Air 04/27/23 08:16 36.6 C 79 20 153/64 H 97 Room Air 04/27/23 07:15 71 04/27/23 03:00 36.5 C 74 20 148/74 H 93 Room Air Laboratory Results Abnormal lab results 04/26/23 04/26/23 04/27/23 Range/Units 16:25 19:46 06:35 RBC 3.26 L (4.20-5.40) M/uL Hgb 9.0 L (12.0-16.0) g/dl Hct 28.6 L (37.0-47.0) % MCHC 31.5 L (32.0-36.0) g/dL RDW Std Deviation 49.9 H (36.4-46.3) fL RDW Coeff of Karrie 15.7 H (11.5-14.5) % Glucose 118 H (70-99(Fasting)) mg/dl POC Glucose 141 H 146 H (70-99) mg/dl Calcium 8.2 L (8.6-10.3) mg/dl Magnesium 1.6 L (1.7-2.4) mg/dl 04/27/23 04/27/23 Range/Units 07:26 11:19 RBC (4.20-5.40) M/uL Hgb (12.0-16.0) g/dl Hct (37.0-47.0) % MCHC (32.0-36.0) g/dL RDW Std Deviation (36.4-46.3) fL RDW Coeff of Karrie (11.5-14.5) % Glucose (70-99(Fasting)) mg/dl POC Glucose 127 H 238 H (70-99) mg/dl Calcium (8.6-10.3) mg/dl Magnesium (1.7-2.4) mg/dl
[2023-04-27] MEDS: MIRTAZAPINE TAB 15 MG TAB PO SCH (19:38)
[2023-04-28] MEDS: ERYTHROMYCIN OP OINT 5 MG/GM 3.5 GM TUBE OP SCH ×6 (01:53→21:26)
[2023-04-28] MEDS: LEVOTHYROXINE SODIUM 50 MCG TABLET PO SCH (05:35)
[2023-04-28 08:04] LABS: BUN Creatinine Ratio 16.9 (10-20); Calcium 8.5 mg/dl (8.6-10.3); Creatinine Clr Calc Pharmacy 47.1 ml/min; Est GFR (African American) 83.9 ml/min; Est GFR (Non-African American) 72.4 ml/min; Magnesium 1.5 mg/dl (1.7-2.4); Phosphorus 3.9 mg/dl (2.5-4.9); Potassium 4.5 mmol/L (3.5-5.1)
[2023-04-28] MEDS ORDERED: MAGNESIUM SULFATE / D5W 1 GM/100 ML BAG IV ONE (08:14)
[2023-04-28] MEDS: LANTUS PER UNIT CHARGE SC SCH (08:14)
[2023-04-28] MEDS: INSULIN ASPART PER UNIT CHARGE SC SCH ×4 (08:14→21:33)
[2023-04-28] MEDS: TAMOXIFEN CITRATE 10 MG TABLET PO SCH (08:15)
[2023-04-28] MEDS: LIDOCAINE 5% 1 PATCH TD SCH (08:15)
[2023-04-28] MEDS: PRAVASTATIN SOD 40 MG TAB PO SCH (08:15)
[2023-04-28] MEDS: METOPROLOL SUCC 50MG EXT REL TAB PO SCH (08:15)
[2023-04-28] MEDS: MAGNESIUM OXIDE 400 MG TAB PO SCH (08:15)
[2023-04-28] MEDS: PANTOprazole 40 MG TAB PO SCH ×2 (08:15→21:26)
[2023-04-28] MEDS: ACETAMINOPHEN 325 MG TAB PO PRN ×2 (09:35→17:40)
--- NOTE | 2023-04-28 13:30 | Hospitalist Progress Note ---
Date of Service April 28, 2023 Assessment & Plan (1) Acute upper GI bleed: Plan: Melena Acute Blood Loss Anemia Likely due to esophagitis, duodenal ulcer Diarrhea likely due to above INR: Normal Hb dropped to 6.[address] abd suggestive of gastritis/duodenitis/ulcer disease Stool for C diff :Negative S/P EGD on 04/23/23 :Mild esophagitis. Normal stomach.Non-bleeding duodenal ulcer with adherent clot. Clip (MR conditional) was placed. Normal second portion of the duodenum. No specimens collected. S/P 2 units PRBCs Continue to hold Aspirin Completed 72hrs Protonix drip Currently on PO Protonix 40 mg twice daily for 2 months. Will continue it daily after 2 months Hb remains stable Monitor H&H and transfuse PRBCs as needed to keep Hb >7 Avoid anticoagulants, NSAIDs Acute T8 Fracture Recurrent [place] Ambulatory dysfunction--has been using walker at baseline -CT:Acute fracture through the anterior osteophytes and superior endplate of T8. This does not involve the posterior elements, and there is no significant loss of height or retropulsion of fragments. The stability of this fracture is indeterminate. Fall precautions PT OT eval noted [facility] Input: Recommends TLSO brace with activity. Pain control Vit D level is 63 Leukocytosis No clear signs of infection Stool negative for c diff Urinalysis not suggestive of UTI No indication for antibiotics Resolved Left eye redness Conjunctivitis vs suspected corneal abrasion Continue erythromycin cream Will need ophthalmology evaluation as outpatient Hypomagnesemia Mg is 1.5 today Replete and start po mag Monitor Hypoxia Recently treated for Pneumonia --CXR:Cardiomegaly and cardiac pacemaker without radiographic evidence of congestive failure. No airspace consolidation or large pleural effusion is identified. Right upper lobe consolidation seen on 04/09/2023 has almost completely resolved. 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 Patient to follow up outpatient DM Type II: Last HbA1c 8.5 Will hold oral diabetic meds ISS, basal Insulin, Accu checks Glycemic pharm on board for insulin mgt Other chronic conditions Complete heart block s/p PPM placement 08/02/22 Hypertension--Resume losartan at lower dose of 25mg daily for now and montor 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 CLL DVT Px: SCDs Re: GI bleed Patient reports she is still awaiting call back from her insurance regarding her appeal CM working on placement Code Status Full Code I spent a total of 35 minutes coordinating, documenting and providing care for this patient excluding time spent in performance of separately billed services Admission and Anticipated Discharge Date Admission Date: April 21, 2023 Subjective Patient seen and examined Denies any new complaints today Denied any fever, headache, sorethroat, congestion Denied cough, chest pain, SOB Denied any abd pain, dizziness, nausea, vomiting Denied dysuria, freq, urgency Physical Exam Constitutional: + well hydrated; no acute distress Eyes: Left eye redness is much improved ENMT: external ear and nose normal, oropharynx normal Respiratory: normal respiratory effort, lungs clear to auscultation Cardiovascular: Rate/Rhythm: regular rate and regular rhythm S1 S2 Gastrointestinal (Abdomen): normal bowel sounds, soft, nontender, no hepatosplenomegaly Musculoskeletal: No pedal edema Neurologic: PERRL, EOMI, accommodation nl, no face palsy, no dysarthria Psychiatric: A+Ox3, euthymic affect Results & Data Results & Data Vital Signs (Past 12 Hours) Vital Signs Temp Pulse Pulse Resp BP Pulse Ox O2 Del Method 04/28/23 12:09 36.6 C 83 18 130/79 96 Room Air 04/28/23 10:04 72 04/28/23 08:14 36.6 C 74 18 152/84 H 92 Room Air 04/28/23 03:00 36.7 C 72 16 170/76 H 98 Room Air Laboratory Results Abnormal lab results 04/27/23 04/27/23 04/28/23 Range/Units 17:43 19:47 07:22 Glucose 112 H (70-99(Fasting)) mg/dl POC Glucose 173 H 261 H (70-99) mg/dl Calcium 8.5 L (8.6-10.3) mg/dl Magnesium 1.5 L (1.7-2.4) mg/dl 04/28/23 04/28/23 Range/Units 07:36 11:35 Glucose (70-99(Fasting)) mg/dl POC Glucose 117 H 228 H (70-99) mg/dl Calcium (8.6-10.3) mg/dl Magnesium (1.7-2.4) mg/dl
[2023-04-28] MEDS: MIRTAZAPINE TAB 15 MG TAB PO SCH (21:26)
[2023-04-29] MEDS: ERYTHROMYCIN OP OINT 5 MG/GM 3.5 GM TUBE OP SCH ×2 (04:09→05:39)
[2023-04-29] MEDS: LEVOTHYROXINE SODIUM 50 MCG TABLET PO SCH (05:39)
[2023-04-29 07:27] LABS: Hematocrit (blood only) 30.1 % (37.0-47.0); Hemoglobin 9.6 g/dl (12.0-16.0); Mean Corpuscular Hemoglobin 27.9 pg (25.0-34.0); Mean Corpuscular Hgb Conc 31.9 g/dL (32.0-36.0); Mean Corpuscular Volume 87.5 fL (80.0-100.0); Mean Platelet Volume 10.4 fL (9.4-12.4); Platelet Count 153 K/uL (130-400); RDW Coefficient of Variation 15.6 % (11.5-14.5); Red Blood Count 3.44 M/uL (4.20-5.40); White Blood Count 3.95 K/ul (4.8-10.8)
[2023-04-29 07:45] LABS: BUN Creatinine Ratio 20.5 (10-20); Calcium 8.5 mg/dl (8.6-10.3); Creatinine Clr Calc Pharmacy 49.3 ml/min; Est GFR (African American) 89.5 ml/min; Est GFR (Non-African American) 77.2 ml/min; Magnesium 1.5 mg/dl (1.7-2.4); Phosphorus 3.5 mg/dl (2.5-4.9); Potassium 4.5 mmol/L (3.5-5.1)
[2023-04-29] MEDS: TAMOXIFEN CITRATE 10 MG TABLET PO SCH (08:47)
[2023-04-29] MEDS: PRAVASTATIN SOD 40 MG TAB PO SCH (08:47)
[2023-04-29] MEDS: PANTOprazole 40 MG TAB PO SCH ×2 (08:47→20:43)
[2023-04-29] MEDS: MAGNESIUM OXIDE 400 MG TAB PO SCH ×2 (08:47→20:43)
[2023-04-29] MEDS: LOSARTAN POTASSIUM 25 MG TAB PO SCH (08:47)
[2023-04-29] MEDS: LIDOCAINE 5% 1 PATCH TD SCH (08:47)
[2023-04-29] MEDS: METOPROLOL SUCC 50MG EXT REL TAB PO SCH (08:47)
[2023-04-29] MEDS: LANTUS PER UNIT CHARGE SC SCH (08:53)
[2023-04-29] MEDS: INSULIN ASPART PER UNIT CHARGE SC SCH ×4 (08:54→20:43)
--- NOTE | 2023-04-29 12:07 | Pharmacy Report ---
Pharmacy Glycemic Short Note 2 - Date of Service April 29, 2023 - Glycemic Short BSG Results (Last 24 hours): 04/28/23 04/28/23 04/29/23 15:53 20:18 07:05 Glucose 128 H POC Glucose 152 H 134 H 04/29/23 04/29/23 04/29/23 07:17 10:59 11:00 Glucose POC Glucose 124 H 307 H* 330 H* OUTPATIENT ANTIDIABETIC REGIMEN: * Trulicity 1.5 mg SQ weekly * Prandin * HbA1C = 8.5% (04/11/23) ASSESSMENT: 04/29: * Patient received total of 36 units of insulin yesterday, of which 10 units were basal insulin * Fasting BSG 124 mg/dL - continue same basal insulin * Lunch BSG trending up each day, continue to tighten CR with breakfast * Repeat BSG today at 1430 today to ensure BSG trending back down (jumped from 124 to 330mg/dl breakfast to lunch with only 20 grams CHO consumed) 04/27: * Patient received total of 22 units of insulin yesterday, of which 10 units were basal insulin * Fasting BSG 118 mg/dL - continue same basal insulin * Lunch BSG trending up each day, will trial tighter CR with breakfast check tomorrow 04/26: * Patient received total 24 units of insulin yesterday; 10 units basal + 14 units bolus. * BSGs yesterday were [phone] mg/dl. * Basal insulin continued the same at 10 units daily. * Since post-prandial BSGs are trending up, lunch BSG = 228 mg/dl today, Novolog parameters tightened slightly. 04/24 * Patient received no insulin yesterday, NPO the day. * Fasting BSG 172 mg/dL - IV fluids with dextrose started yesterday likely contributing to higher BSGs today. Will resume basal 10 units daily 04/22 * Ms Plata is an 82 y/o F with a PMH of T2DM who presents with fall. Patient is currently NPO. * Previous hospitalization (04/2023) demonstrated patient tolerated Lantus 12 units BID Novolog CF 30 CR10. * Due to NPO status, will give Lantus 20 units SQ x 1 (20% reduction) * Will utilize previously tolerated Novolog. PLAN FOR INPATIENT GLYCEMIC CONTROL: * Hold outpatient diabetes medications * Basal insulin * Lantus 10 units daily * Bolus insulin * NovoLog per scale ACHS or Q6hrs while NPO * Goal Range: Low 110 mg/dL - High 140 mg/dL * Correction Factor: 20 mg/dL/unit * Nutritional / Prandial insulin per carb ratio of 1 unit per 8 grams CHO consumed ( CR of 2.5 with breakfast only)
--- NOTE | 2023-04-29 12:18 | Hospitalist Progress Note ---
Date of Service April 29, 2023 Assessment & Plan (1) Acute upper GI bleed: Plan: Melena Acute Blood Loss Anemia Likely due to esophagitis, duodenal ulcer Diarrhea likely due to above INR: Normal Hb dropped to 6.[address] abd suggestive of gastritis/duodenitis/ulcer disease Stool for C diff :Negative S/P EGD on 04/23/23 :Mild esophagitis. Normal stomach.Non-bleeding duodenal ulcer with adherent clot. Clip (MR conditional) was placed. Normal second portion of the duodenum. No specimens collected. S/P 2 units PRBCs Continue to hold Aspirin Completed 72hrs Protonix drip Currently on PO Protonix 40 mg twice daily for 2 months. Will continue it daily after 2 months Hb remains stable in 9s Avoid anticoagulants, NSAIDs Acute T8 Fracture Recurrent Falls Ambulatory dysfunction--has been using walker at baseline -CT:Acute fracture through the anterior osteophytes and superior endplate of T8. This does not involve the posterior elements, and there is no significant loss of height or retropulsion of fragments. The stability of this fracture is indeterminate. Fall precautions PT OT eval noted [facility] Input: Recommends TLSO brace with activity. Pain controlled Vit D level is 63 Leukocytosis No clear signs of infection Stool negative for c diff Urinalysis not suggestive of UTI No indication for antibiotics Resolved Left eye redness Conjunctivitis vs suspected corneal abrasion Continue erythromycin cream Will need ophthalmology evaluation as outpatient Hypomagnesemia Mg is 1.5 today Increase po mag to BID Monitor Hypoxia Recently treated for Pneumonia --CXR:Cardiomegaly and cardiac pacemaker without radiographic evidence of congestive failure. No airspace consolidation or large pleural effusion is identified. Right upper lobe consolidation seen on 04/09/2023 has almost completely resolved. 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 Patient to follow up outpatient DM Type II: Last HbA1c 8.5 Will hold oral diabetic meds ISS, basal Insulin, Accu checks Glycemic pharm on board for insulin mgt Other chronic conditions Complete heart block s/p PPM placement 08/02/22 Hypertension--Resume losartan at lower dose of 25mg daily for now and montor 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 CLL DVT Px: SCDs Re: GI bleed Patient is still awaiting call back from her insurance regarding her appeal CM working on placement Discontinue telemetry Code Status Full Code I spent a total of 35 minutes coordinating, documenting and providing care for this patient excluding time spent in performance of separately billed services Admission and Anticipated Discharge Date Admission Date: April 21, 2023 Subjective Patient seen and examined Denies any new complaints today Physical Exam Constitutional: + well hydrated; no acute distress Eyes: Left eye redness almost resolved ENMT: external ear and nose normal, oropharynx normal Respiratory: normal respiratory effort, lungs clear to auscultation Cardiovascular: Rate/Rhythm: regular rate and regular rhythm S1 S2 Gastrointestinal (Abdomen): normal bowel sounds, soft, nontender, no hepatosplenomegaly Musculoskeletal: No pedal edema Neurologic: PERRL, EOMI, accommodation nl, no face palsy, no dysarthria Psychiatric: A+Ox3, euthymic affect Results & Data Results & Data Vital Signs (Past 12 Hours) Vital Signs Temp Pulse Resp BP Pulse Ox O2 Del Method 04/29/23 12:06 36.8 C 84 18 127/51 L 96 Room Air 04/29/23 08:04 36.6 C 76 18 160/80 H 93 Room Air 04/29/23 03:53 37.0 C 73 18 150/77 H 95 Room Air Laboratory Results Abnormal lab results 04/28/23 04/28/23 04/29/23 Range/Units 15:53 20:18 07:05 WBC 3.95 L (4.8-10.8) K/ul RBC 3.44 L (4.20-5.40) M/uL Hgb 9.6 L (12.0-16.0) g/dl Hct 30.1 L (37.0-47.0) % MCHC 31.9 L (32.0-36.0) g/dL RDW Std Deviation 50.0 H (36.4-46.3) fL RDW Coeff of Karrie 15.6 H (11.5-14.5) % BUN/Creatinine Ratio 20.5 H (10-20) Glucose 128 H (70-99(Fasting)) mg/dl POC Glucose 152 H 134 H (70-99) mg/dl Calcium 8.5 L (8.6-10.3) mg/dl Magnesium 1.5 L (1.7-2.4) mg/dl 04/29/23 04/29/23 04/29/23 Range/Units 07:17 10:59 11:00 WBC (4.8-10.8) K/ul RBC (4.20-5.40) M/uL Hgb (12.0-16.0) g/dl Hct (37.0-47.0) % MCHC (32.0-36.0) g/dL RDW Std Deviation (36.4-46.3) fL RDW Coeff of Karrie (11.5-14.5) % BUN/Creatinine Ratio (10-20) Glucose (70-99(Fasting)) mg/dl POC Glucose 124 H 307 H* 330 H* (70-99) mg/dl Calcium (8.6-10.3) mg/dl Magnesium (1.7-2.4) mg/dl
[2023-04-29] MEDS ORDERED: INSULIN ASPART PER UNIT CHARGE SC ONE (14:30)
[2023-04-29] MEDS: MIRTAZAPINE TAB 15 MG TAB PO SCH (20:43)
[2023-04-30] MEDS: LEVOTHYROXINE SODIUM 50 MCG TABLET PO SCH (05:41)
[2023-04-30 08:06] LABS: BUN Creatinine Ratio 18.8 (10-20); Calcium 8.7 mg/dl (8.6-10.3); Creatinine Clr Calc Pharmacy 42.4 ml/min; Est GFR (African American) 74.5 ml/min; Est GFR (Non-African American) 64.3 ml/min; Magnesium 1.5 mg/dl (1.7-2.4); Phosphorus 3.4 mg/dl (2.5-4.9); Potassium 4.5 mmol/L (3.5-5.1)
[2023-04-30] MEDS: METOPROLOL SUCC 50MG EXT REL TAB PO SCH (10:15)
[2023-04-30] MEDS: PRAVASTATIN SOD 40 MG TAB PO SCH (10:15)
[2023-04-30] MEDS: LIDOCAINE 5% 1 PATCH TD SCH (10:15)
[2023-04-30] MEDS: TAMOXIFEN CITRATE 10 MG TABLET PO SCH (10:15)
[2023-04-30] MEDS: PANTOprazole 40 MG TAB PO SCH ×2 (10:15→20:32)
[2023-04-30] MEDS: MAGNESIUM OXIDE 400 MG TAB PO SCH ×2 (10:15→20:32)
[2023-04-30] MEDS: LOSARTAN POTASSIUM 25 MG TAB PO SCH (10:15)
[2023-04-30] MEDS: LANTUS PER UNIT CHARGE SC SCH (10:16)
[2023-04-30] MEDS: INSULIN ASPART PER UNIT CHARGE SC SCH ×4 (10:17→20:51)
--- NOTE | 2023-04-30 12:29 | Hospitalist Progress Note ---
Date of Service April 30, 2023 Assessment & Plan (1) Acute upper GI bleed: Plan: Melena Acute Blood Loss Anemia Likely due to esophagitis, duodenal ulcer Diarrhea likely due to above INR: Normal Hb dropped to 6.[address] abd suggestive of gastritis/duodenitis/ulcer disease Stool for C diff :Negative S/P EGD on 04/23/23 :Mild esophagitis. Normal stomach.Non-bleeding duodenal ulcer with adherent clot. Clip (MR conditional) was placed. Normal second portion of the duodenum. No specimens collected. S/P 2 units PRBCs Continue to hold Aspirin Completed 72hrs Protonix drip Currently on PO Protonix 40 mg twice daily for 2 months. Will continue it daily after 2 months Hb remains stable in 9s Avoid anticoagulants, NSAIDs Acute T8 Fracture Recurrent [place] Ambulatory dysfunction--has been using walker at baseline -CT:Acute fracture through the anterior osteophytes and superior endplate of T8. This does not involve the posterior elements, and there is no significant loss of height or retropulsion of fragments. The stability of this fracture is indeterminate. Fall precautions PT OT eval noted [facility] Input: Recommends TLSO brace with activity. Pain controlled Vit D level is 63 Leukocytosis No clear signs of infection Stool negative for c diff Urinalysis not suggestive of UTI No indication for antibiotics Resolved Left eye redness Conjunctivitis vs suspected corneal abrasion Continue erythromycin cream Will need ophthalmology evaluation as outpatient Hypomagnesemia Mg is 1.5 today Continue po mag to BID Monitor Hypoxia Recently treated for Pneumonia --CXR:Cardiomegaly and cardiac pacemaker without radiographic evidence of congestive failure. No airspace consolidation or large pleural effusion is identified. Right upper lobe consolidation seen on 04/09/2023 has almost completely resolved. 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 Patient was on 100mg daily at home. 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 CLL DVT Px: SCDs Re: GI bleed Patient is still awaiting call back from her insurance regarding her appeal CM working on placement Code Status Full Code I spent a total of 35 minutes coordinating, documenting and providing care for this patient excluding time spent in performance of separately billed services Admission and Anticipated Discharge Date Admission Date: April 21, 2023 Subjective Patient seen and examined Denies any new complaints today Reports BM today was brown Patient states she is still awaiting call from her insurance about her appeal, likely tomorrow Physical Exam Constitutional: + well hydrated; no acute distress ENMT: external ear and nose normal, oropharynx normal Respiratory: normal respiratory effort, lungs clear to auscultation Cardiovascular: Rate/Rhythm: regular rate and regular rhythm S1 S2 Gastrointestinal (Abdomen): normal bowel sounds, soft, nontender, no hepatosplenomegaly Musculoskeletal: No pedal edema Neurologic: PERRL, EOMI, accommodation nl, no face palsy, no dysarthria Psychiatric: A+Ox3, euthymic affect Results & Data Results & Data Vital Signs (Past 12 Hours) Vital Signs Temp Pulse Resp BP Pulse Ox O2 Del Method 04/30/23 09:12 36.7 C 83 18 163/97 H 95 Room Air Laboratory Results Abnormal lab results 04/29/23 04/29/23 04/29/23 Range/Units 15:19 16:38 19:50 Sodium (136-145) mmol/L Glucose (70-99(Fasting)) mg/dl POC Glucose 129 H 121 H 132 H (70-99) mg/dl Magnesium (1.7-2.4) mg/dl 04/30/23 04/30/23 04/30/23 Range/Units 07:28 08:05 11:58 Sodium 135 L (136-145) mmol/L Glucose 152 H (70-99(Fasting)) mg/dl POC Glucose 144 H 329 H* (70-99) mg/dl Magnesium 1.5 L (1.7-2.4) mg/dl 04/30/23 Range/Units 11:59 Sodium (136-145) mmol/L Glucose (70-99(Fasting)) mg/dl POC Glucose 365 H* (70-99) mg/dl Magnesium (1.7-2.4) mg/dl
[2023-04-30] MEDS: MIRTAZAPINE TAB 15 MG TAB PO SCH (20:32)
[2023-05-01] MEDS ORDERED: INSULIN ASPART PER UNIT CHARGE SC SCH (02:00)
[2023-05-01] MEDS: LEVOTHYROXINE SODIUM 50 MCG TABLET PO SCH (06:11)
[2023-05-01 07:58] LABS: BUN Creatinine Ratio 22.8 (10-20); Calcium 8.4 mg/dl (8.6-10.3); Creatinine Clr Calc Pharmacy 44.5 ml/min; Est GFR (African American) 81.4 ml/min; Est GFR (Non-African American) 70.2 ml/min; Magnesium 1.6 mg/dl (1.7-2.4); Phosphorus 3.3 mg/dl (2.5-4.9); Potassium 4.3 mmol/L (3.5-5.1)
[2023-05-01] MEDS ORDERED: MAGNESIUM SULFATE / D5W 1 GM/100 ML BAG IV ONE (07:59)
[2023-05-01] MEDS: LIDOCAINE 5% 1 PATCH TD SCH (09:06)
[2023-05-01] MEDS: METOPROLOL SUCC 50MG EXT REL TAB PO SCH (09:06)
[2023-05-01] MEDS: MAGNESIUM OXIDE 400 MG TAB PO SCH ×2 (09:07→20:46)
[2023-05-01] MEDS: PRAVASTATIN SOD 40 MG TAB PO SCH (09:07)
[2023-05-01] MEDS: PANTOprazole 40 MG TAB PO SCH ×2 (09:07→20:46)
[2023-05-01] MEDS: LOSARTAN POTASSIUM 25 MG TAB PO SCH (09:07)
[2023-05-01] MEDS: INSULIN ASPART PER UNIT CHARGE SC SCH ×4 (09:15→20:49)
[2023-05-01] MEDS: LANTUS PER UNIT CHARGE SC SCH (09:15)
[2023-05-01] MEDS: TAMOXIFEN CITRATE 10 MG TABLET PO SCH (09:16)
--- NOTE | 2023-05-01 09:28 | Pharmacy Report ---
Pharmacy Glycemic Short Note 2 - Date of Service May 01, 2023 - Glycemic Short BSG Results (Last 24 hours): 04/30/23 04/30/23 04/30/23 11:58 11:59 16:45 Glucose POC Glucose 329 H* 365 H* 213 H 04/30/23 04/30/23 05/01/23 20:05 20:07 01:39 Glucose POC Glucose 329 H* 306 H* 91 05/01/23 05/01/23 06:27 07:46 Glucose 122 H POC Glucose 144 H OUTPATIENT ANTIDIABETIC REGIMEN: * Trulicity 1.5 mg SQ weekly * Prandin * HbA1C = 8.5% (04/11/23) ASSESSMENT: 05/01: * BSG trend continues w/ highest BSG of day at lunchtime (>300 mg/dL on 04/30) * Novolog was tightened significantly yesterday morning and loosened for rest of day * Given degree of tightening yesterday, will continue this one more day. If trend continues, then will tighten further on 04/02. * Basal dose increased by 20% yesterday - will continue 04/29: * Patient received total of 36 units of insulin yesterday, of which 10 units were basal insulin * Fasting BSG 124 mg/dL - continue same basal insulin * Lunch BSG trending up each day, continue to tighten CR with breakfast * Repeat BSG today at 1430 today to ensure BSG trending back down (jumped from 124 to 330mg/dl breakfast to lunch with only 20 grams CHO consumed) 04/27: * Patient received total of 22 units of insulin yesterday, of which 10 units were basal insulin * Fasting BSG 118 mg/dL - continue same basal insulin * Lunch BSG trending up each day, will trial tighter CR with breakfast check tomorrow Background: * Ms Plata is an 82 y/o F with a PMH of T2DM who presents with fall. Patient is currently NPO. * Previous hospitalization (04/2023) demonstrated patient tolerated Lantus 12 units BID Novolog CF 30 CR10. * Due to NPO status, will give Lantus 20 units SQ x 1 (20% reduction) * Will utilize previously tolerated Novolog. PLAN FOR INPATIENT GLYCEMIC CONTROL: * Hold outpatient diabetes medications * Basal insulin * Lantus 12 units daily * Bolus insulin * NovoLog per scale ACHS or Q6hrs while NPO * Goal Range: Low 110 mg/dL - High 140 mg/dL * Correction Factor: 20 mg/dL/unit * Nutritional / Prandial insulin per carb ratio of 1 unit per 8 grams CHO consumed ( CR of 2.5 with breakfast only)
--- NOTE | 2023-05-01 14:14 | Hospitalist Progress Note ---
Date of Service May 01, 2023 Assessment & Plan (1) Acute upper GI bleed: Plan: Melena Acute Blood Loss Anemia Likely due to esophagitis, duodenal ulcer Diarrhea likely due to above INR: Normal Hb dropped to 6.[address] abd suggestive of gastritis/duodenitis/ulcer disease Stool for C diff :Negative S/P EGD on 04/23/23 :Mild esophagitis. Normal stomach.Non-bleeding duodenal ulcer with adherent clot. Clip (MR conditional) was placed. Normal second portion of the duodenum. No specimens collected. S/P 2 units PRBCs Continue to hold Aspirin Completed 72hrs Protonix drip Currently on PO Protonix 40 mg twice daily for 2 months. Will continue it daily after 2 months Hb remains stable in 9s Avoid anticoagulants, NSAIDs Acute T8 Fracture Recurrent [place] Ambulatory dysfunction--has been using walker at baseline -CT:Acute fracture through the anterior osteophytes and superior endplate of T8. This does not involve the posterior elements, and there is no significant loss of height or retropulsion of fragments. The stability of this fracture is indeterminate. Fall precautions PT OT eval noted [facility] Input: Recommends TLSO brace with activity. Pain controlled Vit D level is 63 Leukocytosis No clear signs of infection Stool negative for c diff Urinalysis not suggestive of UTI No indication for antibiotics Resolved Left eye redness Conjunctivitis vs suspected corneal abrasion Treated with erythromycin drops Improved Will need ophthalmology evaluation as outpatient Hypomagnesemia Mg is 1.6 today Continue po mag to BID Monitor. Will likely need po mag on discharge Hypoxia Recently treated for Pneumonia --CXR:Cardiomegaly and cardiac pacemaker without radiographic evidence of congestive failure. No airspace consolidation or large pleural effusion is identified. Right upper lobe consolidation seen on 04/09/2023 has almost completely resolved. 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 BP is better since. Monitor and adjust meds accordingly. Will likely need reduced dose of losartan on discharge. Patient was on 100mg daily at home. 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 CLL DVT Px: SCDs Re: GI bleed Patient is still awaiting call back from her insurance regarding her appeal CM working on placement Code Status Full Code I spent a total of 40 minutes coordinating, documenting and providing care for this patient excluding time spent in performance of separately billed services Admission and Anticipated Discharge Date Admission Date: April 21, 2023 Subjective Patient seen and examined Reported left thumb soreness on waking up Patient states she is still awaiting call from her insurance about her appeal Physical Exam Constitutional: + well hydrated; no acute distress ENMT: external ear and nose normal, oropharynx normal Respiratory: normal respiratory effort, lungs clear to auscultation Cardiovascular: Rate/Rhythm: regular rate and regular rhythm S1 S2 Gastrointestinal (Abdomen): normal bowel sounds, soft, nontender, no hepatosplenomegaly Musculoskeletal: No pedal edema Mild tenderness over left thumb, no bruise, 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 Neurologic: PERRL, EOMI, accommodation nl, no face palsy, no dysarthria Psychiatric: A+Ox3, euthymic affect Results & Data Results & Data Vital Signs (Past 12 Hours) Vital Signs Temp Pulse Resp BP Pulse Ox O2 Del Method 05/01/23 07:43 36.8 C 77 18 124/55 L 95 Room Air Laboratory Results Abnormal lab results 04/30/23 04/30/23 04/30/23 Range/Units 16:45 20:05 20:07 BUN/Creatinine Ratio (10-20) Glucose (70-99(Fasting)) mg/dl POC Glucose 213 H 329 H* 306 H* (70-99) mg/dl Calcium (8.6-10.3) mg/dl Magnesium (1.7-2.4) mg/dl 05/01/23 05/01/23 05/01/23 Range/Units 06:27 07:46 11:36 BUN/Creatinine Ratio 22.8 H (10-20) Glucose 122 H (70-99(Fasting)) mg/dl POC Glucose 144 H 180 H (70-99) mg/dl Calcium 8.4 L (8.6-10.3) mg/dl Magnesium 1.6 L (1.7-2.4) mg/dl
[2023-05-01] MEDS: MIRTAZAPINE TAB 15 MG TAB PO SCH (20:46)
[2023-05-01] MEDS: ACETAMINOPHEN 325 MG TAB PO PRN (22:20)
[2023-05-02] MEDS: LEVOTHYROXINE SODIUM 50 MCG TABLET PO SCH (05:25)
[2023-05-02 06:50] LABS: Hematocrit (blood only) 30.3 % (37.0-47.0); Hemoglobin 9.5 g/dl (12.0-16.0); Mean Corpuscular Hemoglobin 27.5 pg (25.0-34.0); Mean Corpuscular Hgb Conc 31.4 g/dL (32.0-36.0); Mean Corpuscular Volume 87.8 fL (80.0-100.0); Mean Platelet Volume 10.9 fL (9.4-12.4); Platelet Count 178 K/uL (130-400); RDW Coefficient of Variation 15.4 % (11.5-14.5); RDW Standard Deviation 49.2 fL (36.4-46.3); Red Blood Count 3.45 M/uL (4.20-5.40); White Blood Count 4.59 K/ul (4.8-10.8)
[2023-05-02 07:10] LABS: BUN Creatinine Ratio 19.8 (10-20); Calcium 8.8 mg/dl (8.6-10.3); Creatinine Clr Calc Pharmacy 43.4 ml/min; Est GFR (African American) 78.9 ml/min; Est GFR (Non-African American) 68.1 ml/min; Magnesium 1.7 mg/dl (1.7-2.4); Phosphorus 4.1 mg/dl (2.5-4.9); Potassium 4.6 mmol/L (3.5-5.1)
[2023-05-02] MEDS: PRAVASTATIN SOD 40 MG TAB PO SCH (08:45)
[2023-05-02] MEDS: METOPROLOL SUCC 50MG EXT REL TAB PO SCH (08:45)
[2023-05-02] MEDS: PANTOprazole 40 MG TAB PO SCH ×2 (08:45→21:06)
[2023-05-02] MEDS: MAGNESIUM OXIDE 400 MG TAB PO SCH ×2 (08:45→21:06)
[2023-05-02] MEDS: LOSARTAN POTASSIUM 25 MG TAB PO SCH (08:45)
[2023-05-02] MEDS: TAMOXIFEN CITRATE 10 MG TABLET PO SCH (08:46)
[2023-05-02] MEDS: LIDOCAINE 5% 1 PATCH TD SCH (08:47)
[2023-05-02] MEDS: LANTUS PER UNIT CHARGE SC SCH (08:51)
[2023-05-02] MEDS: INSULIN ASPART PER UNIT CHARGE SC SCH ×4 (08:51→21:12)
--- NOTE | 2023-05-02 16:42 | Hospitalist Progress Note ---
Date of Service May 02, 2023 Assessment & Plan (1) Acute upper GI bleed: Plan: Per previous attending notes with addendum: Melena Acute Blood Loss Anemia Likely due to esophagitis, duodenal ulcer Diarrhea likely due to above INR: Normal Hb dropped to 6.[address] abd suggestive of gastritis/duodenitis/ulcer disease Stool for C diff :Negative S/P EGD on 04/23/23 :Mild esophagitis. Normal stomach.Non-bleeding duodenal ulcer with adherent clot. Clip (MR conditional) was placed. Normal second portion of the duodenum. No specimens collected. S/P 2 units PRBCs Continue to hold Aspirin Completed 72hrs Protonix drip Currently on PO Protonix 40 mg twice daily for 2 months. Will continue it daily after 2 months Hb remains stable in 9s Avoid anticoagulants, NSAIDs 05/02 Hemoglobin stable at 9.5 No recurrence of GI bleed Acute T8 Fracture Recurrent [place] Ambulatory dysfunction--has been using walker at baseline -CT:Acute fracture through the anterior osteophytes and superior endplate of T8. This does not involve the posterior elements, and there is no significant loss of height or retropulsion of fragments. The stability of this fracture is indeterminate. Fall precautions PT OT eval noted [facility] Input: Recommends TLSO brace with activity. Pain controlled Vit D level is 63 Leukocytosis No clear signs of infection Stool negative for c diff Urinalysis not suggestive of UTI No indication for antibiotics Resolved Left eye redness Conjunctivitis vs suspected corneal abrasion Treated with erythromycin drops Improved Will need ophthalmology evaluation as outpatient Hypomagnesemia Mg is 1.6 today Continue po mag to BID Monitor. Will likely need po mag on discharge Hypoxia Recently treated for Pneumonia --CXR:Cardiomegaly and cardiac pacemaker without radiographic evidence of congestive failure. No airspace consolidation or large pleural effusion is identified. Right upper lobe consolidation seen on 04/09/2023 has almost completely resolved. 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 BP is better since. Monitor and adjust meds accordingly. Will likely need reduced dose of losartan on discharge. Patient was on 100mg daily at home. 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 Seen resting in bedside chair, in good spirits, having lunch States she feels fine overall no chest pain, dyspnea, palpitations, dizziness No melena, hematochezia, abdominal pain Minimal back pain Still on the weak side No other new symptom Review of Systems Review of Systems: all noted and negative except for above Physical Exam Physical Exam: General- oriented x 3, not in distress, speaks in sentences with no effort or accessory muscle use Eyes- anicteric Neck- no JVD Lungs- clear breath sounds bilaterally, no rales/wheezes Heart- normal rate, regular rhythm; no murmurs Abdomen- normal bowel sounds, nondistended, soft, nontender Extremities- no pretibial edema, no calf tenderness Neuro- alert, oriented x 3; no gross focal neurologic deficits Skin- warm & dry Results & Data Results & Data Vital Signs (Past 12 Hours) Vital Signs Temp Pulse Resp BP BP Pulse Ox O2 Del Method 05/02/23 14:05 36.7 C 77 16 149/71 H 97 Room Air 05/02/23 07:45 36.5 C 76 148/75 H 96 Room Air all noted and reviewed including below
[2023-05-02] MEDS: MIRTAZAPINE TAB 15 MG TAB PO SCH (21:06)
[2023-05-03] MEDS: ACETAMINOPHEN 325 MG TAB PO PRN (04:50)
[2023-05-03] MEDS: LEVOTHYROXINE SODIUM 50 MCG TABLET PO SCH (06:02)
[2023-05-03] MEDS: MAGNESIUM OXIDE 400 MG TAB PO SCH (09:09)
[2023-05-03] MEDS: LOSARTAN POTASSIUM 25 MG TAB PO SCH (09:09)
[2023-05-03] MEDS: PANTOprazole 40 MG TAB PO SCH (09:09)
[2023-05-03] MEDS: METOPROLOL SUCC 50MG EXT REL TAB PO SCH (09:11)
[2023-05-03] MEDS: PRAVASTATIN SOD 40 MG TAB PO SCH (09:12)
[2023-05-03] MEDS: LIDOCAINE 5% 1 PATCH TD SCH (09:12)
[2023-05-03] MEDS: LANTUS PER UNIT CHARGE SC SCH (09:14)
[2023-05-03] MEDS: INSULIN ASPART PER UNIT CHARGE SC SCH ×2 (09:15→12:25)
[2023-05-03] MEDS: TAMOXIFEN CITRATE 10 MG TABLET PO SCH (09:15)
--- NOTE | 2023-05-03 09:45 | Pharmacy Report ---
Pharmacy Glycemic Short Note 2 - Date of Service May 03, 2023 - Glycemic Short BSG Results (Last 24 hours): 05/02/23 05/02/23 05/02/23 11:35 16:44 20:50 POC Glucose 247 H 118 H 214 H 05/03/23 07:47 POC Glucose 141 H OUTPATIENT ANTIDIABETIC REGIMEN: * Trulicity 1.5 mg SQ weekly * Prandin * HbA1C = 8.5% (04/11/23) ASSESSMENT: 05/03: * BSGs remain labile, ranging 118-247 mg/dL yesterday * Received 58 units of insulin yesterday (14 units of basal and 44 units of prandial/correctional bolus) * Continued trend of high at lunchtime - will tighten carb ratio at breakfast * Fasting BSG stable, ranging 141-144 mg/dL over past 3 days. If still in this range tomorrow, increase basal again. 05/01: * BSG trend continues w/ highest BSG of day at lunchtime (>300 mg/dL on 04/30) * Novolog was tightened significantly yesterday morning and loosened for rest of day * Given degree of tightening yesterday, will continue this one more day. If trend continues, then will tighten further on 04/02. * Basal dose increased by 20% yesterday - will continue 04/29: * Patient received total of 36 units of insulin yesterday, of which 10 units were basal insulin * Fasting BSG 124 mg/dL - continue same basal insulin * Lunch BSG trending up each day, continue to tighten CR with breakfast * Repeat BSG today at 1430 today to ensure BSG trending back down (jumped from 124 to 330mg/dl breakfast to lunch with only 20 grams CHO consumed) Background: * Ms Plata is an 82 y/o F with a PMH of T2DM who presents with fall. Patient is currently NPO. * Previous hospitalization (04/2023) demonstrated patient tolerated Lantus 12 units BID Novolog CF 30 CR10. * Due to NPO status, will give Lantus 20 units SQ x 1 (20% reduction) * Will utilize previously tolerated Novolog. PLAN FOR INPATIENT GLYCEMIC CONTROL: * Hold outpatient diabetes medications * Basal insulin * Lantus 14-16 units daily * Bolus insulin * NovoLog per scale ACHS or Q6hrs while NPO * Goal Range: Low 110 mg/dL - High 140 mg/dL * Correction Factor: 20 mg/dL/unit * Nutritional / Prandial insulin per carb ratio of 1 unit per 8 grams CHO consumed ( CR of 2 with breakfast only)
--- NOTE | 2023-05-03 15:50 | Discharge Summary ---
Discharge Summary Date of Service May 03, 2023 Notes For Next Care Provider acute blood loss anemia likely due to esophagitis, duodenal ulcer Medication Changes From Visit Protonix 40mg BID x 2 months, then reduce to daily. 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 Patient is a poor historian. Most of the history is obtained from patient, old records, ER staff. Patient states that she is she was getting up from bathroom commode this morning and lost balance resulting in hitting her back of her head and fall. She denies any dizziness, lightheadedness, syncopal episode, change in vision, headache. Reports having significant back pain even with especially with movement. Admits to have semisolid black stools for about 1 week duration. She also had an episode of dark-colored emesis. Denies any history of chest pain, dyspnea, pedal edema, cough, hemoptysis, fever, chills, focal weakness, numbness, vertigo, slurred speech, facial deformity, abdominal pain, dysuria, hematuria. Admission Exam Per Admitting Provider General Appearance:Moderately built and nourished, no apparent distress Head: normocephalic, Atraumatic Eyes: normal inspection, EOMI Neck: supple, Trachea midline Respiratory/Chest: Normal breath sounds, CTA, No accessory muscle use Cardiovascular: S1, S2, + murmur Abdomen/GI:Soft, Non tender, Bowel sounds present Back+ Tender mid thoracic Extremities/Musculoskeletal:normal inspection, no edema Neurologic/Psych:AAOX2, grossly no focal neurological deficits Skin: normal color, warm Principal Dx & Hospital Course #1 = Principal Diagnosis (1) Acute upper GI bleed: (2) Duodenal ulcer: (3) Anemia: (4) Closed T8 spinal fracture: (5) Recurrent falls: (6) Hypoxia: (7) Diabetes mellitus type 2 in nonobese: (8) HTN (hypertension): (9) CLL (chronic lymphocytic leukemia): Plan Patient is an 82-year-old female with history of diabetes mellitus, CLL, com plete heart block S/P PPM, 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 abd suggestive of gastritis/duodenitis/ulcer disease. Hgb dropped to 6.8 on presentation and required 2 units prbcs with hgb now stable in 9s. C diff negative. Underwent EGD on 04/23/23 with mild esophagitis. Normal stomach. Non-bleeding duodenal ulcer with adherent clot. Clip (MR conditional) was placed. Normal second portion of the duodenum. No specimens collected. Continue protonix 40mg PO BID x 2 months and then continue daily. Continue holding aspirin and follow up with PCP. Avoid anticoagulants, NSAIDs. Noted to have acute T8 fracture on CT imaging in setting of frequent falls and ambulatory dysfunction requiring walker. Evaluated by ortho spine and recommended TLSO brace with activity. Noted to have left eye erythema on admission ddx of conjunctivitis vs suspected corneal abrasion. Treated and improved with erythromycin drops. Will need ophthalmology evaluation as outpatient. Noted to have hypomagnesemia during admission requiring frequent repletion and discharged on mag oxide 400mg PO BID, PCP to follow up with repeat lab. 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 Noted to be hypotensive during admission and losartan decreased from 100mg to 25mg daily. Continue reduced dose at time of discharge, PCP to titrate as needed. Discharge Exam Gen: WD/WN, NAD, sitting in bedside chair, A&Ox260, +TLSO brace HEENT: Normocephalic, atraumatic, conjunctivae moist, sclerae anicteric, mucous membranes moist Lung: Clear to Auscultation bilaterally, no wheezes/rales/rhonchi Heart: Regular rate, regular rhythm, no murmurs, rubs, or gallops Abdomen: Soft, NT, ND +BS x 4 Extremities: no edema Skin: Warm, no rash Updated Medication List Medication Instructions Recorded Confirmed Type aspirin 81 mg chewable tablet 81 mg PO DAILY 12/30/18 04/21/23 History levothyroxine 50 mcg tablet 50 mcg PO DAILY 12/30/18 04/21/23 History pravastatin 40 mg tablet 40 mg PO DAILY 12/30/18 04/21/23 History amlodipine 2.5 mg tablet 2.5 mg PO DAILY 30 days #30 tabs 08/03/22 04/21/23 Rx dulaglutide 1.5 mg/0.5 mL 1.5 mg subcut WK 08/13/22 04/21/23 History subcutaneous pen injector (Trulicity) metoprolol succinate 50 mg 50 mg PO DAILY 08/13/22 04/21/23 History tablet,extended release 24 hr multivitamin 1 tab PO DAILY 10/05/22 04/21/23 History metformin 500 mg tablet,extended 1,000 mg PO BID 10/23/22 04/21/23 History release 24 hr fluoride (sodium) 1.1 % dental 1 applic dental DAILY 11/06/22 04/21/23 History cream (SF 5000 Plus) cholecalciferol (vitamin D3) 125 125 mcg PO DAILY 03/06/23 04/21/23 History mcg (5,000 unit) capsule mirtazapine 15 mg tablet 15 mg PO HS 03/06/23 04/21/23 History repaglinide 0.5 mg tablet 0.5 mg PO DAILY 03/06/23 04/21/23 History tamoxifen 20 mg tablet 20 mg PO DAILY 03/06/23 04/21/23 History losartan 100 mg tablet 25 mg (1/4 x 100 mg) PO DAILY #30 05/03/23 Rx tabs magnesium oxide 400 mg (241.3 mg 400 mg PO BID #60 tabs 05/03/23 Rx magnesium) tablet pantoprazole 40 mg tablet,delayed 40 mg PO BID #60 tabs 05/03/23 Rx release Hospital Stay Data Consultations 04/21/23 07:51 ED Decision to Admit Stat 04/21/23 11:45 Consult Gastroenterology Routine Consult Orthopedic Surgery Routine Procedures Performed Operation Date: 04/23/23 17:30 Actual Procedures p EGD Hemostasis - Sneha Wetzel, DO Diagnostic Imagining Performed 04/21/23 05:47 CT cervical spine wo con Stat CT head/brain wo con Stat 04/21/23 05:55 CT Abd and Pelvis [CT abd pelvis IV con only] Stat Pending Results Patient Have Any Pending Studies at Discharge: No Discharge Instructions Given to Patient (Per Discharging Provider) MEDICATION CHANGES: Continue Protonix 40mg twice a day for at least 2 months Continue holding aspirin for now given duodenal ulcer - PCP follow up to reassess Continue oral magnesium supplementation Mag oxide 400mg BID for now - PCP to repeat Magnesium levels Reduced losartan dose to 25mg. Continue this dose at discharge; PCP may need to adjust SUMMARY OF TEST RESULTS: You were admitted to hospital with acute blood loss anemia likely due to esophagitis, duodenal ulcer CT abd/pelvis suggestive of gastritis/duodenitis/ulcer disease Stool for C diff :Negative S/P EGD on 04/23/23 :Mild esophagitis. Normal stomach.Non-bleeding duodenal ulcer with adherent clot. Clip (MR conditional) was placed. Normal second portion of the duodenum. No specimens collected PENDING TEST RESULTS: None RECOMMENDATIONS FOR FOLLOW-UP: Follow up with PCP as scheduled. Avoid anticoagulants, NSAIDs. Per orthopedic evaluation, recommend TLSO brace with activity Treated for conjunctivitis vs suspected corneal abrasion with erythromycin drops and improved. 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 Please take good care of yourself. Call if you have any questions or problems. You can reach a [facility] hospitalist on duty at [facility] 24 hours a day by calling [phone]. Total Time Total Time Spent Total Time Spent (In Minutes): 60 Supervising Physician Co-Signing Physician Notes delayed entry date of service noted above Attending Addendum: care coordinated with DULCE MARIA Platt please refer to her notes for full details, I agree with her notes patient seen and examined, records reviewed by myself as well diagnoses and plan of care as per DULCE MARIA Monroy MD
[2023-05-04] MEDS ORDERED: LANTUS PER UNIT CHARGE SC SCH (09:00)
== END 2023-05-03 16:30 | DRG 377 ==
LOC: ED 05:37 → SUATTDRO 08:14 → EDINP 08:14 → 2S 13:50 → 3W 04-29 12:26
DX: C91.90 Lymphoid leukemia, unspecified not having achieved remission; Z79.82 Long term (current) use of aspirin; D72.829 Elevated white blood cell count, unspecified; W18.39XA Other fall on same level, initial encounter; S05.02XA Injury of conjunctiva and corneal abrasion without foreign body, left eye, initial encounter; K26.4 Chronic or unspecified duodenal ulcer with hemorrhage; Y92.121 Bathroom in nursing home as the place of occurrence of the external cause; E83.42 Hypomagnesemia; E11.65 Type 2 diabetes mellitus with hyperglycemia; E87.5 Hyperkalemia; Z88.2 Allergy status to sulfonamides; Z85.3 Personal history of malignant neoplasm of breast; K86.89 Other specified diseases of pancreas; Z92.3 Personal history of irradiation; H10.9 Unspecified conjunctivitis; S22.060A Wedge compression fracture of T7-T8 vertebra, initial encounter for closed fracture; I44.2 Atrioventricular block, complete; I10 Essential (primary) hypertension; Z88.0 Allergy status to penicillin; Z88.1 Allergy status to other antibiotic agents; D62 Acute posthemorrhagic anemia; Z79.84 Long term (current) use of oral hypoglycemic drugs; S00.93XA Contusion of unspecified part of head, initial encounter; Z95.0 Presence of cardiac pacemaker; K20.91 Esophagitis, unspecified with bleeding; R09.02 Hypoxemia; E78.5 Hyperlipidemia, unspecified; R29.6 Repeated falls; E11.40 Type 2 diabetes mellitus with diabetic neuropathy, unspecified; E03.9 Hypothyroidism, unspecified